=== PATIENT | male | born 1950 | race Caucasian/White ===

== ENCOUNTER → 2016-05-06 | Day surgery (SDC) | payer OTHER ==
[~2016-05-06] VITALS: Ht 175.3 cm; Wt 68.2 kg
[~2016-05-06] MED LIST: ADVIN25/60 INH; ALBU0.633 INH; ALBU1AER9 INH; AMLO-114 PO; ATOR-26 PO; BALS1CAP2 PO; BISM262C5 PO; CRFL PO; FLM4 PO; GLC500 PO; IPRA1AER2 INH; LIDOCAINE HCL 2% 2 ML VIAL (20MG/ML) ONE; MECL1TAB42 PO; MIDAZOLAM HCL 1 MG/ML 2ML VIAL ONE; NRV/5 PO; ONDANSETRON INJ 2 MG/ML 2 ML VIAL ONE; PANT40TA PO; PLV75 PO; PROPOFOL IV EMULSION 10 MG/ML 20 ML VIAL IV ONE; SENNTAB23 PO; SODIUM CHLORIDE 0.9% 500ML 500 ML IV ONE; TAMS0.4C38 PO; VNTHFA/IN INH
[2016-05-06 14:37] VITALS: Ht 175.3 cm; Wt 68.2 kg
--- NOTE | 2016-05-06 15:55 | Endo History and Physical ---
History & Physical Date of Service: May 06, 2016. Chief Complaint: REFLUX Referring Physician: DR PENA History of Present Illness 66 yo CM who presents for EGD secondary to GERD. Past Medical History Asthma, Male Genitourinary Prob., Gastrointestinal Disorder, Reflux, High Cholesterol, Hypertension, COPD, Depression Past Surgical History Hx Cardiac Surgery: No Hx Internal Defibrillator: No Hx Pacemaker: No Hx Abdominal Surgery: No Hx of Implantable Prosthesis: No Hx Post-Op Nausea and Vomiting: No Hx Cancer Surgery: No Hx Thoracic Surgery: No Hx Orthopedic: No Hx Urinary Tract Surgery: Yes (LITHOTRIPSY) Family History None Social History Smoking Status: Former Smoker Hx Substance Use: No Hx Alcohol Use: No Allergies Coded Allergies: No Known Allergies (Verified , 05/06/16) Current Medications Reported Home Medications Medications Dose Route/Sig Max Daily Dose Days Date Category Lipitor (Atorvastatin Calcium) 80 Mg Tab 80 Mg PO HS 01/17/16 Rx Stool Softener (Sennosides-Docusate Sodium) 1 Tab Tab 1 Tab PO DAILY PRN 11/04/15 Reported Pepto-Bismol Chew Tab (Bismuth Subsalicylate) Chew 1 Tab PO DIRECTED PRN 11/04/15 Reported Flomax (Tamsulosin Hcl) 0.4 Mg Cap 1 Cap PO HS 30 11/04/15 Reported Meclizine Hcl 25 Mg Tab 1 Tab PO TID PRN 10 11/04/15 Reported Amlodipine Besylate 5 Mg Tab 10 Mg PO QAM 09/05/15 Reported Metformin HCl 500 Mg Tab 500 Mg PO BID 09/05/15 Reported Combivent Respimat (Ipratropium-Albuterol) 1 Aer Aer 2 Puffs INH QID 07/26/13 Reported Albuterol Sulfate 0.63 Mg/3 Ml Neb 1 Treatment INH Q 4-6 HOURS PRN 01/16/13 Reported Proair Hfa (Albuterol) Aers 2 Puffs INH Q4-6HRS PRN 08/20/11 Reported Advair Diskus 250/50 60 Dose (Fluticasone Prop/Salmeterol) 1 Ea Aerp 1 Puff INH BID 08/20/11 Reported Vital Signs Weight (Kilograms): 68.25 Height (Feet): 5 Height (Inches): 9 Date Time Temp Pulse Resp B/P Pulse Ox O2 Delivery O2 Flow Rate FiO2 05/06/16 14:25 36.7 54 20 145/76 98 Room Air Physical Exam General Appearance: WD/WN, no apparent distress Respiratory/Chest: Auscultation: breath sounds normal Cardiovascular: Heart Auscultation: RRR Abdomen: Bowel Sounds: normal Inspection & Palpation: soft, non-distended, no tenderness, guarding & rebound Assessment and Plan Assessment: 66 yo CM who presents for EGD secondary to GERD. Plan: Proceed with EGD.
--- NOTE | 2016-05-06 16:05 | Discharge Instructions ---
Endoscopy Patient Instructions Date / Procedure(s) Performed May 06, 2016. EGD Allergy Information Coded Allergies: No Known Allergies (Verified , 05/06/16) Discharge Date / Findings May 06, 2016. Gastritis s/p biopsies Hiatal hernia Medication Instructions OK to resume all medications today as prescribed Reported Home Medications Medications Dose Route/Sig Max Daily Dose Days Date Category Lipitor (Atorvastatin Calcium) 80 Mg Tab 80 Mg PO HS 01/17/16 Rx Stool Softener (Sennosides-Docusate Sodium) 1 Tab Tab 1 Tab PO DAILY PRN 11/04/15 Reported Pepto-Bismol Chew Tab (Bismuth Subsalicylate) Chew 1 Tab PO DIRECTED PRN 11/04/15 Reported Flomax (Tamsulosin Hcl) 0.4 Mg Cap 1 Cap PO HS 30 11/04/15 Reported Meclizine Hcl 25 Mg Tab 1 Tab PO TID PRN 10 11/04/15 Reported Amlodipine Besylate 5 Mg Tab 10 Mg PO QAM 09/05/15 Reported Metformin HCl 500 Mg Tab 500 Mg PO BID 09/05/15 Reported Combivent Respimat (Ipratropium-Albuterol) 1 Aer Aer 2 Puffs INH QID 07/26/13 Reported Albuterol Sulfate 0.63 Mg/3 Ml Neb 1 Treatment INH Q 4-6 HOURS PRN 01/16/13 Reported Proair Hfa (Albuterol) Aers 2 Puffs INH Q4-6HRS PRN 08/20/11 Reported Advair Diskus 250/50 60 Dose (Fluticasone Prop/Salmeterol) 1 Ea Aerp 1 Puff INH BID 08/20/11 Reported Provider Instructions Activity Restrictions - No exercising or heavy lifting for 24 hours. - Do not drink alcohol the day of the procedure. - Do not drive a car or operate machinery until the day after the procedure. - Do not make any important decisions or sign important papers in 24 hours after the procedure. Following Day: - Return to full activity which may include returning to work/school. Diet Start your diet with liquids and light foods (jello, soup, juice, toast). Then eat your usual diet if not nauseated. Treatment For Common After Affects For mild abdominal pain, bloating, or excessive gas: - Rest - Eat lightly - Lie on right side Follow-Up Information Follow-up with DR PENA as scheduled Anesthesia Information What You Should Know You have had a procedure that required some medicine to reduce anxiety and discomfort. This treatment is called moderate sedation. After receiving the treatment, you may be sleepy, but you will be able to breathe on your own. The effects of the treatment may last for several hours. Follow these instructions along with Activity/Diet recommendations noted above: * Do NOT do anything where dizziness or clumsiness would be dangerous. * Rest quietly at home today, then you can be up and about tomorrow. * Have a responsible person stay with you the rest of today. * You may have had an I.V. today. If so, you may take the dressing off later today. Recommendations Call your doctor if: * Trouble breathing * Continuous vomiting for more than 24 hours * Temperature above 101 degrees * Severe abdominal pain or bloating * Pain not relieved by pain medicine ordered * There is increased drainage or redness from any incision * A large amount of rectal bleeding greater than 2-3 tablespoons. (If you had a polyp/s removed or have hemorrhoids, a small amount of blood - from the rectum is to be expected.) * You have any unanswered questions or concerns. IN THE EVENT OF A SERIOUS EMERGENCY, GO TO THE NEAREST EMERGENCY ROOM Your discharge instructions were prepared by provider Enrique Meeks. Patient Instructions Signature Page Khadar Bailey Patient (or Guardian) Signature/Date: I have read and understand the instructions given to me by my caregivers. Caregiver/RN/Doctor Signature/Date: The above-named patient and/or guardian has received patient instructions on this date. + Original Patient Signature Page (only) stays with chart. Please make copy for patient.
--- NOTE | 2016-05-06 16:10 | GI REPORT ---
Procedure Date: 05/06/2016 3:29 PM Procedure: Upper GI endoscopy Indications: Suspected gastro-esophageal reflux disease Medicines: Monitored Anesthesia Care Complications: No immediate complications. Estimated Blood Loss: Estimated blood loss: none. Procedure: Pre-Anesthesia Assessment: - Prior to the procedure, a History and Physical was performed, and patient medications and allergies were reviewed. The patient's tolerance of previous anesthesia was also reviewed. The risks and benefits of the procedure and the sedation options and risks were discussed with the patient. All questions were answered, and informed consent was obtained. Prior Anticoagulants: The patient has taken no previous anticoagulant or antiplatelet agents. ASA Grade Assessment: III - A patient with severe systemic disease. After reviewing the risks and benefits, the patient was deemed in satisfactory condition to undergo the procedure. After obtaining informed consent, the endoscope was passed under direct vision. Throughout the procedure, the patient's blood pressure, pulse, and oxygen saturations were monitored continuously. The On-site loaner was introduced through the mouth, and advanced to the second part of duodenum. The upper GI endoscopy was accomplished without difficulty. The patient tolerated the procedure well. Findings: The esophagus was normal. A small hiatus hernia was present. Localized mild inflammation characterized by erythema was found in the gastric antrum. Biopsies were taken with a cold forceps for histology. The examined duodenum was normal. Impression: - Normal esophagus. - Small hiatus hernia. - Gastritis. Biopsied. - Normal examined duodenum. Recommendation: - Resume previous diet. - Use Prilosec (omeprazole) 20 mg PO daily. - Await pathology results. - Return to GI office as previously scheduled. Enrique Meeks, DO 05/06/2016 4:09:01 PM This report has been signed electronically. Note Initiated On: 05/06/2016 3:29 PM
[2016-05-06 16:39] VITALS: BP 135/69; PULSE 54; O2SAT 93
--- NOTE | 2016-05-06 17:09 | Anesthesiology Progress Note ---
Anesthesia Post Op Note Date & Time May 06, 2016 at 17:08 Vital Signs Pain Intensity: 0 Vital Signs Past 12 Hours Date Time Temp Pulse Resp B/P Pulse Ox O2 Delivery O2 Flow Rate FiO2 05/06/16 16:39 54 20 135/69 93 Room Air 05/06/16 16:24 54 18 126/60 94 Room Air 05/06/16 16:09 52 16 110/59 94 Room Air 05/06/16 14:25 36.7 54 20 145/76 98 Room Air Notes Mental Status: alert / awake / arousable, participated in evaluation Pt Amnestic to Procedure: Yes Nausea / Vomiting: adequately controlled Pain: adequately controlled Airway Patency, RR, SpO2: stable & adequate BP & HR: stable & adequate Hydration State: stable & adequate Anesthetic Complications: no major complications apparent
== END | disposition home or self-care (01) ==
LOC: C.GI 14:04
PROVIDERS: ATTEND Internal Medicine
DX: K29.70 Gastritis, unspecified, without bleeding (principal); K21.9 Gastro-esophageal reflux disease without esophagitis; K44.9 Diaphragmatic hernia without obstruction or gangrene; J45.909 Unspecified asthma, uncomplicated; E78.00 Pure hypercholesterolemia, unspecified; I10 Essential (primary) hypertension; J44.9 Chronic obstructive pulmonary disease, unspecified; F32.9 Major depressive disorder, single episode, unspecified; Z98.890 Other specified postprocedural states; Z87.891 Personal history of nicotine dependence

== ENCOUNTER → 2016-05-13 | Outpatient (CLI) | payer OTHER ==
[~2016-05-13] MED LIST changes: -LIDOCAINE HCL 2% 2 ML VIAL (20MG/ML) ONE; -MIDAZOLAM HCL 1 MG/ML 2ML VIAL ONE; -ONDANSETRON INJ 2 MG/ML 2 ML VIAL ONE; -PROPOFOL IV EMULSION 10 MG/ML 20 ML VIAL IV ONE; -SODIUM CHLORIDE 0.9% 500ML 500 ML IV ONE
--- NOTE | 2016-05-13 11:33 | DIAGNOSTIC IMAGING REPORT ---
(BARIUM SWALLOW) ESOPHAGUS CLINICAL HISTORY: Dysphagia with solids and pills. Coughing. COMPARISON STUDY: None. FLUOROSCOPY TIME: Total fluoroscopy time was 0.8 minutes.. FINDINGS: 12 images submitted. The patient swallowed barium contrast. There is a small amount of silent aspiration during the examination. Therefore, examination was terminated prematurely. The visualized portions of the esophagus appear to be normal in course and caliber. IMPRESSION: Silent aspiration occurred during the examination which resulted in premature termination of the study. Recommend video swallow for further evaluation. Electronically signed by: Pal Richter M.D. 05/13/2016 11:31 AM Dictated Date/Time: 05/13/2016 11:29 AM
== END | disposition home or self-care (01) ==
LOC: C.RAD 10:47
PROVIDERS: ATTEND Internal Medicine
DX: R13.10 Dysphagia, unspecified (principal); R05 Cough

== ENCOUNTER → 2016-05-21 | Outpatient (CLI) | payer OTHER ==
--- NOTE | 2016-05-21 14:04 | DIAGNOSTIC IMAGING REPORT ---
VIDEO SWALLOW STUDY CLINICAL HISTORY: Aspiration. COMPARISON STUDY: Barium esophagram dated 05/13/2016. Fluoroscopy time: 3.6 minutes. FINDINGS: Fluoroscopic guidance was provided to the Department of Speech Pathology in performing a video swallow study. The patient consumed barium-impregnated cracker with paste, pudding, honey thick liquid, nectar thick liquid, as well as thin barium. No penetration or aspiration was seen with the cracker with paste. There was pharyngeal penetration without aspiration seen with pudding texture. Silent aspiration was observed with honey thick liquids, nectar thick liquids, and thin barium. IMPRESSION: Silent aspiration was seen with several textures as detailed above. See dedicated speech pathology report for detailed findings and recommendations. Dictated: 05/21/2016 1:00 PM Transcribed: 05/21/2016 2:03 PM [email or web address] Electronically signed by: Sammy Leal M.D. 05/21/2016 2:09 PM Dictated Date/Time: 05/21/2016 1:00 PM
--- NOTE | 2016-05-21 15:05 | SWALLOWING EVALUATION ---
HISTORY: This 66 year-old man was referred for a VFSS at [facility] in order to rule out aspiration. The patient recently participated in a Barium Swallow study on 05/13/16 (please refer to full report for details) that identified silent aspiration. He also had an EGD completed on 05/06/16 for suspected reflux. The esophagus was found to be normal, but there was a small hiatal hernia. The patient reports he often has a sore throat, and that the right side of his throat feels swollen. He denies any significant swallowing difficulties. The patient has a PMH significant for COPD, hypertension, AAA, falls, UTI, and vertigo. Both he and his family deny any history of pneumonia. Currently the patient's diet level is described as mechanical soft. PROCEDURE: The patient was seen in the Radiology Department of [facility] for the VFSS. Cursory examination of the oral cavity revealed an upper denture of adequate fit. No lower dentition noted. Movement of the articulators was wnl. He did tend to have episodes of mumbling and low volume while speaking. The patient was also hard of hearing and had some difficulty with following directions due to this. The patient was seated upright in a wheelchair and was viewed in both the Anterior-Posterior (A-P) and Lateral planes. Volitional phonation exercises completed in the A-P plane revealed bilateral vocal fold movement and vocal intensity to be mildly low. In the lateral plane, the patient was given the following boluses: 1 tsp. thin liquid barium x 2, single swallow thin liquid barium self-presented and clinician-presented from a cup x3 (one with a chin tuck), single swallow of thin liquid barium self-presented from a straw, 1 tsp. nectar-thick liquid barium, single swallow nectar-thick liquid barium self-presented and clinician-presented from a cup, 1 teaspoon thin-honey barium, 1 tsp. barium pudding, and 1 club cracker with barium paste. The patient was then repositioned into the A-P plane and given the following bolus: 1 tsp. barium pudding. RESULTS: Oral Stage: Lip closure was wnl. The patient was able to orally contain a liquid bolus upon command without lateral or posterior loss. Mastication was slow as was lingual motion for bolus transport. There was a collection of retention in the lateral sulci and along the tongue after the swallow. The initiation of the pharyngeal swallow was delayed and occurred when the bolus head reached the pyriforms. Pharyngeal Stage: Soft palate elevation was complete. Laryngeal elevation revealed partial superior movement of the thyroid cartilage and partial approximation of the arytenoids to the epiglottic base. Anterior hyoid excursion was partially reduced. Epiglottic deflection was incomplete as it only inverted partially to the horizontal position. Laryngeal vestibular closure was incomplete, with a narrow column of contrast and at times air being located in the vestibule at the height of the swallow. The pharyngeal stripping wave was present yet diminished. Pharyngeal contraction was only assessed with using pudding, and was found to be complete. The opening to the pharyngoesophageal segment was partially reduced with distention and duration, and partial bolus flow obstruction. Tongue base retraction was incomplete with a narrow column of contrast being noted between the tongue base and pharyngeal wall during the swallow. There was retention located in the valleculae and pyriforms after the swallow. There was also a coating of residue along the laryngeal aspect of the epiglottis. This patient presented with laryngeal penetration and SILENT aspiration (at times scant amounts) of all liquids administered, to include thin, nectar and honey consistencies. A chin tuck was utilized with thin liquids and resulted in worsening aspiration that was also SILENT. Verbal cues to produce a throat clear and/or cough did not appear to fully redirect the aspirated liquids. This aspiration is due to delayed swallow reflex, incomplete laryngeal elevation/excursion, and reduced epiglottic deflection. Pudding textures resulted in laryngeal penetration without aspiration, and the cracker was also not aspirated. There were increased residuals in the valleculae and pyriforms after the swallow that the patient was not able to clear with a second swallow. Residuals along the laryngeal aspect of the epiglottis would trickle toward the open airway and when a swallow was elicited, scant silent aspiration would occur. Esophageal Stage: There was esophageal retention located in the mid esophagus with the pudding consistency. SUMMARY/RECOMMENDATIONS: This patient presents with moderate to severe oral-pharyngeal dysphagia. The patient also presents with signs of esophageal dysfunction. The patient has not had any recent pneumonia and is apparently tolerating the aspiration, however is a HIGH risk for developing repeated aspiration pneumonia. Therefore, the following is recommended: 1. Mechanical soft diet and thin liquids. 2. Aspiration precautions, NO straws. Fully upright for meals. Stringent oral care to include brushing all surfaces of the mouth (tongue, palate, cheek, and dentures). 3. Safe swallow strategies: Small bites, small sips. Consider crushing medications and place in a carrier such as applesauce or pudding. 4. Follow up with referring physician and PCP OSIEL regarding results and recommendations of this study. The patient would also benefit from speech therapy services for further education and carryover of diet and safe swallow strategies. In addition, the patient would benefit from pharyngeal strengthening exercises to assist with improved swallow function. A summary of the results and recommendations was discussed with the patient and his niece (with the patient's permission) with verbal understanding. Thickened liquids were not recommended as the patient aspirates them as well, and he would be more at risk of developing aspiration pneumonia from aspirated thickener as opposed to thin liquids. Liquids of pudding thick consistency can also be considered, however again the patient is currently tolerating what he is aspirating. Liquid modification to pudding thick would significantly increase the patient's risk of dehydration, and compliance with this may be limited. The patient reports he typically only drinks coffee, and lemon-red cliff soda. Also reviewed the importance of stringent oral care. Family indicates the patient is extremely active and it is likely this has kept him from developing pneumonia at this point. The referring physician's office was also contacted (Dr. Meeks) and spoke with Libby LOVE regarding results understanding was verbalized. Thank you for referral of this patient. Please contact me at if any additional information is needed.
== END | disposition home or self-care (01) ==
LOC: C.RAD 11:06
PROVIDERS: ATTEND Internal Medicine
DX: R13.10 Dysphagia, unspecified (principal)

== ENCOUNTER → 2016-05-24 | Outpatient (CLI) | payer OTHER ==
--- NOTE | 2016-05-24 12:33 | DIAGNOSTIC IMAGING REPORT ---
PA CHEST RADIOGRAPH AND UPRIGHT AND SUPINE AP RADIOGRAPHS OF THE ABDOMEN CLINICAL HISTORY: Abdominal pain and tenderness. COMPARISON STUDY: Abdominal series and chest radiograph September 13, [address] March 23, 2016. FINDINGS: Emphysema is noted. There are multiple healed left rib fractures. A nipple shadow projects over the right lower lung. There is no consolidation to suggest pneumonia. Cardiac size is normal. Mediastinal contours are normal. The appearance of the chest is unchanged. There is oral contrast within portions of the colon from recent modified barium swallow. A bifurcated aortoiliac stent graft and cholecystectomy clips are noted. Bowel gas pattern is normal. There is no free air. Avascular necrosis of the right femoral head is noted. IMPRESSION: 1. No free air or evidence of bowel obstruction. 2. No acute cardiopulmonary findings. 3. Emphysema. 4. Avascular necrosis of the right femoral head. Electronically signed by: Julio C Escobar M.D. 05/24/2016 12:32 PM Dictated Date/Time: 05/24/2016 12:29 PM
== END | disposition home or self-care (01) ==
LOC: C.RAD 11:22
PROVIDERS: ATTEND Family Medicine
DX: R10.9 Unspecified abdominal pain (principal); J43.9 Emphysema, unspecified

== ENCOUNTER → 2016-06-28 | Outpatient (CLI) | payer OTHER ==
[2016-06-28 10:08] LABS: ESTIMATED AVERAGE GLUCOSE 126 mg/dl; HA1C FLAG Normal (Normal)
[2016-06-28 10:42] LABS: ALT/SGPT 9 U/L (12-78); BLOOD UREA NITROGEN 14 mg/dl (7-18); BUN/CREATININE RATIO 13.8 (10-20); CALCIUM 9.1 mg/dl (8.5-10.1); CARBON DIOXIDE 29 mmol/L (21-32); CHLORIDE 102 mmol/L (98-107); GLUCOSE 101 mg/dl (70-99); POTASSIUM 4.2 mmol/L (3.5-5.1); SODIUM 141 mmol/L (136-145)
[2016-06-28 10:44] LABS: CHOLESTEROL 208 mg/dl (0-200); CHOLESTEROL/HDL RATIO 4.3; HDL CHOLESTEROL 48 mg/dl; LDL CHOLESTEROL CALCULATED 132 mg/dl; TRIGLYCERIDES 139 mg/dl (0-150); VERY LOW DENSITY LIPOPROT CALC 28 mg/dl
== END | disposition home or self-care (01) ==
LOC: C.LAB1850 08:50
PROVIDERS: ATTEND Family Medicine
DX: E78.5 Hyperlipidemia, unspecified (principal); R73.9 Hyperglycemia, unspecified

== ENCOUNTER 2016-07-21 11:04 | Inpatient (IN) | payer OTHER ==
[~2016-07-21] VITALS: Ht 175.3 cm; Wt 68.1 kg
[~2016-07-21 11:04] MED LIST changes: -AMLO-114 PO; -BALS1CAP2 PO; -CRFL PO; -FLM4 PO; -PANT40TA PO; -PLV75 PO; -VNTHFA/IN INH
[2016-07-21] MEDS ORDERED: ONDANSETRON INJ 2 MG/ML 2 ML VIAL IV STA ×2 (11:29→12:53)
[2016-07-21] MEDS ORDERED: SODIUM CHLORIDE 0.9% 500ML 500 ML IV STA (11:29)
[2016-07-21] MEDS ORDERED: SODIUM CHLORIDE 0.9% 1000ML 1,000 ML IV STA (11:29)
--- NOTE | 2016-07-21 11:35 | EMERGENCY ROOM VISIT NOTE ---
History Report prepared by Razia: Tristan Martinez Under the Supervision of: Dr. Lolly Duarte M.D. First contact with patient: 11:26 Chief Complaint: REFERRED BY DOCTOR Stated Complaint: SENT BY FAMILY DOCTOR-Ainsley,D, DEHYDRATED History of Present Illness The patient is a 66 year old male who presents to the Emergency Room with complaints of persistent vomiting for the past week. The patient also complains of nausea, diarrhea, and headache. The patient presented to his PCP earlier this morning that recommended he present to the ED for further evaluation since he was concerned for dehydration. The patient also complains of a right-sided abdominal pain that radiates to his chest. This discomfort starter after his abdominal aneurysm surgery 5 months ago in January. Per patient's family, they think the patient has been eating and drinking normally. Source of History: patient Onset: the past week Position: abdomen Timing: other (persistent) Associated Symptoms: + abdominal pain, + diarrhea, + headache, + nausea Review of Systems See HPI for pertinent positives & negatives. A total of 10 systems reviewed and were otherwise negative. Past Medical & Surgical Medical Problems: (1) Chronic obstructive lung disease (2) Fall (3) History of - hypertension (4) Hypercholesteremia Family History Hypertension Social History Smoking Status: Former Smoker Alcohol Use: none Drug Use: none Marital Status: Housing Status: lives with family Occupation Status: employed Current/Historical Medications Scheduled Albuterol Hfa (Ventolin Hfa), 2-4 PUFFS INH Q6H Amlodipine (Norvasc), 10 MG PO DAILY Atorvastatin (Lipitor), 80 MG PO HS Balsalazide Disodium (Colazal), 2 CAP PO TID Clopidogrel Bisulfate (Clopidogrel), 1 TAB PO DAILY Fluticasone Prop/Salmeterol (Advair Diskus 250/50 60 Dose), 1 PUFF INH BID Ipratropium-Albuterol (Combivent Respimat), 2 PUFFS INH QID Metformin HCl (Metformin HCl), 500 MG PO BID Pantoprazole (Protonix), 40 MG PO BID Sucralfate (Carafate), 10 ML PO QID Tamsulosin HCl (Tamsulosin HCl), 0.4 MG PO DAILY Scheduled PRN Albuterol Sulfate (Albuterol Sulfate), 1 TREATMENT INH Q 4-6 HOURS PRN for COPD Meclizine Hcl (Meclizine Hcl), 1 TAB PO TID PRN for Dizziness or Vertigo Sennosides-Docusate Sodium (Stool Softener), 1 TAB PO DAILY PRN for Constipation Allergies Coded Allergies: Ciprofloxacin (Unverified Allergy, Severe, hives, 07/21/16) Physical Exam Vital Signs Date Time Temp Pulse Resp B/P Pulse Ox O2 Delivery O2 Flow Rate FiO2 07/21/16 14:37 56 126/65 99 Nasal Cannula 2.0 07/21/16 14:07 97 Nasal Cannula 2.0 07/21/16 13:59 68 28 151/68 87 Room Air 07/21/16 13:38 62 24 137/72 97 Room Air 07/21/16 13:31 62 07/21/16 12:54 68 24 150/83 96 Room Air 07/21/16 12:35 68 21 162/75 96 Room Air 07/21/16 12:17 62 24 152/79 100 Room Air 07/21/16 11:45 56 19 136/65 96 Room Air 07/21/16 11:27 56 07/21/16 11:10 36.7 57 17 147/78 98 Room Air Physical Exam Vital signs reviewed. General: Elderly chronically-appearing male, in no distress. HEENT: No scleral icterus, PERRLA, neck supple. Atraumatic. Cardiovascular: Regular rate and rhythm, no extra sounds. Pulmonary: Clear to auscultation bilaterally, normal work of breathing. Abdomen: Soft, diffuse abdominal tenderness greatest in epigastric area, nondistended, positive bowel sounds. Musculoskeletal: Atraumatic, no peripheral edema. Neurologic: Patient awake alert and oriented x 3, full strength in all 4 extremities. Cranial nerves 2 through 12 grossly intact. Skin: Warm, dry, no rash Medical Decision & Procedures ER Provider Diagnostic Interpretation: CT results as stated below per my review and radiologist interpretation: CT SCAN OF THE BRAIN WITHOUT IV CONTRAST CLINICAL HISTORY: Headache. COMPARISON STUDY: CT of the brain dated 01/16/2016. MRI of the brain dated 01/16/2016. TECHNIQUE: Unenhanced axial CT scan of the brain is performed from the vertex to the skull base. The patient was scanned twice. FINDINGS: Brain parenchyma: There are age-related involutional changes noting moderate patchy subcortical and periventricular microangiopathic change. A chronic lacunar infarct is noted in the right caudate head. There is no hemorrhage, mass effect, or evidence of acute territorial ischemia by CT criteria. Gonzáles-white matter is preserved. No extra-axial fluid collection is seen. Ventricles, sulci, cisterns: Prominent secondary to involutional change. Intracranial vasculature: There is mild atherosclerotic calcification of the cavernous carotid arteries. Calvarium: Unremarkable. Sinuses and mastoids: The visualized paranasal sinuses are clear. The mastoid air cells are well pneumatized. Orbits: The bony orbits are grossly intact. IMPRESSION: There is no hemorrhage, mass effect, or evidence of acute territorial ischemia by CT criteria. Electronically signed by: Sammy Leal M.D. 07/21/2016 12:38 PM Dictated Date/Time: 07/21/2016 12:35 PM ] ABDOMEN AND PELVIS CT WITH IV CONTRAST CT DOSE: 1141.71 mGy.cm HISTORY: Vomiting. Diarrhea. TECHNIQUE: Multiaxial CT images of the abdomen and pelvis were performed following the use of intravenous contrast. COMPARISON STUDY: None. FINDINGS: There is a 5 mm subpleural nodule within the right lower lobe on image 10 of 501. Mild bibasilar interstitial thickening which is likely chronic. No pneumoperitoneum. No pneumatosis. There are 2 hypodense lesions within the liver, unchanged. The largest in the left hepatic lobe measures 3.1 cm. These likely represent cysts. Cholecystectomy. Mild central intrahepatic bile duct dilatation, unchanged. This is likely due to the patient's postcholecystectomy state. The pancreas, spleen, adrenal glands are unremarkable. Bilateral nephrolithiasis. No hydronephrosis. Multiple bilateral renal hypodense lesions are again noted. These likely represent cysts. There is a 9 mm hypodensity within the lower pole the right kidney which may demonstrate slight enhancement. This is incompletely characterized on this single contrast study. The bladder is unremarkable. Prior left inguinal hernia repair. No bowel wall thickening or obstruction. Normal appendix. The patient is status post aortobiiliac stent graft repair of abdominal aortic aneurysm. The aneurysm sac has decreased in size. The sac currently measures 3.8 x 3.6 cm. IMPRESSION: 1. No bowel wall thickening or obstruction. 2. Normal appendix. 3. Hepatic and renal cysts are again noted. 4. Interval aortobiiliac stent graft repair of abdominal aortic aneurysm. The aneurysm sac has decreased in size. 5. A 9 mm hypodense lesion within the lower pole the right kidney which does not clearly represent a simple cyst. Recommend dedicated follow-up nonemergent renal CT to exclude a renal mass. 6. A 5 mm subpleural indeterminate pulmonary nodule within the right lower lobe. Please refer to the chart below for recommended follow-up. 7. Bilateral nephrolithiasis. No hydronephrosis. Please refer to below summary of Fleischner criteria recommendations for follow-up of incidental CT nodules (Mook Blum, Guidelines for management of small pulmonary nodules detected on CT scans: A statement from the Fleischner Society, Radiology 237: [phone].) Low Risk Patient: Minimal or no smoking or other known risk factors for malignancy <=4 mm: No follow-up needed. >4-6 mm: Initial follow-up CT at 12 months; if unchanged, no further follow-up. >6-8 mm: Initial follow-up CT at 6-12 months then at 18-24 months if no change. >8 mm: Follow-up CT at \R\3, 9, 24 months, or PET and/or biopsy. High Risk Patient: History of smoking or other known risk factors <=4 mm: Follow-up at 12 months; if unchanged, no further follow-up. >4-6 mm: Initial follow-up CT at 6-12 months then at 18-24 months if no change. >6-8 mm: Initial follow-up CT at 3-6 months then at 9-12 and 24 months if no change. >8 mm: Same as low risk patient. Note: Nodule size measured as average of length and width. Ground glass or partly solid nodules may require longer follow-up to exclude indolent adenocarcinoma. Electronically signed by: Pal Richter M.D. 07/21/2016 12:51 PM Dictated Date/Time: 07/21/2016 12:36 PM Laboratory Results Test 07/21/16 11:20 07/21/16 11:35 Immature Granulocyte % (Auto) 0.1 % White Blood Count 7.77 K/uL (4.8-10.8) Red Blood Count 4.91 M/uL (4.7-6.1) Hemoglobin 13.6 g/dL (14.0-18.0) Hematocrit 40.7 % (42-52) Mean Corpuscular Volume 82.9 fL (80-100) Mean Corpuscular Hemoglobin 27.7 pg (25-34) Mean Corpuscular Hemoglobin Concent 33.4 g/dl (32-36) Platelet Count 279 K/uL (130-400) Mean Platelet Volume 9.5 fL (7.4-10.4) Neutrophils (%) (Auto) 65.8 % Lymphocytes (%) (Auto) 25.7 % Monocytes (%) (Auto) 6.4 % Eosinophils (%) (Auto) 1.7 % Basophils (%) (Auto) 0.3 % Neutrophils # (Auto) 5.11 K/uL (1.4-6.5) Lymphocytes # (Auto) 2.00 K/uL (1.2-3.4) Monocytes # (Auto) 0.50 K/uL (0.11-0.59) Eosinophils # (Auto) 0.13 K/uL (0-0.5) Basophils # (Auto) 0.02 K/uL (0-0.2) Immature Granulocyte # (Auto) 0.01 K/uL (0.00-0.02) Prothrombin Time 11.5 SECONDS (9.0-12.0) Prothromb Time International Ratio 1.1 (0.9-1.1) Activated Partial Thromboplast Time 27.1 SECONDS (21.0-31.0) Partial Thromboplastin Ratio 1.0 Magnesium Level 1.9 mg/dl (1.8-2.4) Total Bilirubin 0.4 mg/dl (0.2-1) Direct Bilirubin < 0.1 mg/dl (0-0.2) Aspartate Amino Transf (AST/SGOT) 10 U/L (15-37) Alanine Aminotransferase (ALT/SGPT) 8 U/L (12-78) Alkaline Phosphatase 111 U/L (45-117) Total Creatine Kinase 533 U/L (39-308) Creatine Kinase MB < 0.5 ng/ml (0.5-3.6) Creatine Kinase MB Ratio (0-3.0) Total Protein 7.7 gm/dl (6.4-8.2) Albumin 3.3 gm/dl (3.4-5.0) Lipase 94 U/L (73-393) Hepatitis C Antibody Screen NEG (NEG) Bedside Troponin I 0.000 ng/ml (0-0.045) Laboratory results per my review. Medications Administered Medications (Trade) Dose Ordered Sig/Ariana Route Start Time Stop Time Status Last Admin Dose Admin Sodium Chloride 500 ml @ 999 mls/hr Q31M STAT IV 07/21/16 11:29 07/21/16 11:59 DC 07/21/16 11:29 999 MLS/HR Sodium Chloride (Nss 1000ml) 1,000 ml @ 200 mls/hr Q5H STAT IV 07/21/16 11:29 07/21/16 16:29 DC 07/21/16 11:29 200 MLS/HR Ondansetron HCl (Zofran Inj) 4 mg NOW STAT IV 07/21/16 11:29 07/21/16 11:31 DC 07/21/16 11:39 4 MG Ondansetron HCl 4 mg 4 mg NOW STAT IV 07/21/16 12:53 07/21/16 12:54 DC 07/21/16 12:58 4 MG Promethazine HCl/ Sodium Chloride (Phenergan Inj/ Nss 50ml) 50.5 ml @ 204 mls/hr NOW STAT IV 07/21/16 13:20 07/21/16 13:34 DC 07/21/16 13:39 204 MLS/HR ECG Indication: vomiting Rate (beats per minute): 57 Rhythm: sinus bradycardia Findings: no acute ischemic change, no ectopy ED Course 1125: Past medical records reviewed. The patient was evaluated in room C5. A complete history and physical examination was performed. 1129: Ordered Zofran Inj 4 mg IV, NSS 1000 ml @ 200 mls/hr IV, NSS 500 ml @ 999 mls/hr IV. 1253: Ordered Zofran Inj 4 mg IV. 1320: Ordered Promethazine HCl 12.5 mg/ NSS 50.5 ml @ 204 mls/hr IV. 1411: At this time, I discussed the patient's case with Dr. Bradshaw - Hospitalist [facility] and he agreed to accept the patient for further evaluation. Medical Decision Differential Diagnoses: Ruptured triple aneurysm, leaking aortic graft, intracranial hemorrhage, intracranial mass, viral illness, hiatal hernia, bowel obstruction, or GERD. This patient was evaluated and appeared to be in no significant distress. IV access was obtained and laboratory work was drawn. The patient was placed on the cardiac catheterization technician and found to be in a sinus rhythm. Patient received 2 doses of IV Zofran with continued vomiting. CT scan of the head is negative for acute intracranial abnormality. CT scan of the abdomen and pelvis reveals the aortic graft in good position without evidence of leak. Laboratory work is fairly unrevealing. The patient continued to vomit and was given a dose of IV Phenergan. The etiology of the pain is unclear. The patient will be evaluated by the hospitalist service for admission and further management. Consults Time Called: 1406 Consulting Physician: Dr. Bradshaw - Hospitalist [facility] [place] Returned Call: [phone] At this time, I discussed the patient's case with Dr. Bradshaw and he agreed to accept the patient for further evaluation. Impression Primary Impression: Intractable vomiting Additional Impressions: Abdominal pain Headache Scribe Attestation The scribe's documentation has been prepared under my direction and personally reviewed by me in its entirety. I confirm that the note above accurately reflects all work, treatment, procedures, and medical decision making performed by me. Departure Information Dispostion Being Evaluated By Hospitalist Prescriptions Sucralfate (CARAFATE) 1 Gm/10 Ml Jennifer 10 ML PO QID for 7 Days, #280 ML Prov: Bryan Palacios, D.OAntelmo 07/22/16 Referrals No Doctor, Assigned (PCP) Problem Qualifiers Primary Impression: Intractable vomiting Vomiting type: unspecified Nausea presence: with nausea Qualified Codes: R11.2 - Nausea with vomiting, unspecified Additional Impressions: Abdominal pain Abdominal location: generalized Qualified Codes: R10.84 - Generalized abdominal pain Headache Headache type: tension-type Headache chronicity pattern: acute headache Intractability: intractable Qualified Codes: G44.201 - Tension-type headache , unspecified, intractable
[2016-07-21 11:40] LABS: BASO % 0.3 %; BASO ABS # 0.02 K/uL (0-0.2); COMPLETE YES; EOS % 1.7 %; HEMATOCRIT 40.7 % (42-52); IG% 0.1 %; LYMPH % 25.7 %; MEAN CELL VOLUME 82.9 fL (80-100); MEAN CORPUSCULAR HEMOGLOBIN 27.7 pg (25-34); MEAN CORPUSCULAR HGB CONC 33.4 g/dl (32-36); MEAN PLATELET VOLUME 9.5 fL (7.4-10.4); MONO % 6.4 %; NEUT % 65.8 %; PLATELET COUNT 279 K/uL (130-400); RED BLOOD COUNT 4.91 M/uL (4.7-6.1); WHITE BLOOD COUNT 7.77 K/uL (4.8-10.8)
[2016-07-21] MEDS ORDERED: OPTIRAY 320 IV PRN (11:45)
[2016-07-21 11:53] LABS: INR 1.1 (0.9-1.1); PROTHROMBIN TIME (PATIENT) 11.5 SECONDS (9.0-12.0)
[2016-07-21 12:02] LABS: ALT/SGPT 8 U/L (12-78); BLOOD UREA NITROGEN 14 mg/dl (7-18); BUN/CREATININE RATIO 14.2 (10-20); CALCIUM 8.8 mg/dl (8.5-10.1); CARBON DIOXIDE 30 mmol/L (21-32); CHLORIDE 103 mmol/L (98-107); CREATININE 0.95 mg/dl (0.60-1.40); GLUCOSE 92 mg/dl (70-99); MAGNESIUM 1.9 mg/dl (1.8-2.4); POTASSIUM 3.8 mmol/L (3.5-5.1); SODIUM 139 mmol/L (136-145)
[2016-07-21 12:10] LABS: ALKALINE PHOSPHATASE 111 U/L (45-117); AST/SGOT 10 U/L (15-37)
--- NOTE | 2016-07-21 12:39 | DIAGNOSTIC IMAGING REPORT ---
CT SCAN OF THE BRAIN WITHOUT IV CONTRAST CLINICAL HISTORY: Headache. COMPARISON STUDY: CT of the brain dated 01/16/2016. MRI of the brain dated 01/16/2016. TECHNIQUE: Unenhanced axial CT scan of the brain is performed from the vertex to the skull base. The patient was scanned twice. FINDINGS: Brain parenchyma: There are age-related involutional changes noting moderate patchy subcortical and periventricular microangiopathic change. A chronic lacunar infarct is noted in the right caudate head. There is no hemorrhage, mass effect, or evidence of acute territorial ischemia by CT criteria. Gonzáles-white matter is preserved. No extra-axial fluid collection is seen. Ventricles, sulci, cisterns: Prominent secondary to involutional change. Intracranial vasculature: There is mild atherosclerotic calcification of the cavernous carotid arteries. Calvarium: Unremarkable. Sinuses and mastoids: The visualized paranasal sinuses are clear. The mastoid air cells are well pneumatized. Orbits: The bony orbits are grossly intact. IMPRESSION: There is no hemorrhage, mass effect, or evidence of acute territorial ischemia by CT criteria. Electronically signed by: Sammy Leal M.D. 07/21/2016 12:38 PM Dictated Date/Time: 07/21/2016 12:35 PM
--- NOTE | 2016-07-21 12:52 | DIAGNOSTIC IMAGING REPORT ---
ABDOMEN AND PELVIS CT WITH IV CONTRAST CT DOSE: 1141.71 mGy.cm HISTORY: Vomiting. Diarrhea. TECHNIQUE: Multiaxial CT images of the abdomen and pelvis were performed following the use of intravenous contrast. COMPARISON STUDY: None. FINDINGS: There is a 5 mm subpleural nodule within the right lower lobe on image 10 of 501. Mild bibasilar interstitial thickening which is likely chronic. No pneumoperitoneum. No pneumatosis. There are 2 hypodense lesions within the liver, unchanged. The largest in the left hepatic lobe measures 3.1 cm. These likely represent cysts. Cholecystectomy. Mild central intrahepatic bile duct dilatation, unchanged. This is likely due to the patient's postcholecystectomy state. The pancreas, spleen, adrenal glands are unremarkable. Bilateral nephrolithiasis. No hydronephrosis. Multiple bilateral renal hypodense lesions are again noted. These likely represent cysts. There is a 9 mm hypodensity within the lower pole the right kidney which may demonstrate slight enhancement. This is incompletely characterized on this single contrast study. The bladder is unremarkable. Prior left inguinal hernia repair. No bowel wall thickening or obstruction. Normal appendix. The patient is status post aortobiiliac stent graft repair of abdominal aortic aneurysm. The aneurysm sac has decreased in size. The sac currently measures 3.8 x 3.6 cm. IMPRESSION: 1. No bowel wall thickening or obstruction. 2. Normal appendix. 3. Hepatic and renal cysts are again noted. 4. Interval aortobiiliac stent graft repair of abdominal aortic aneurysm. The aneurysm sac has decreased in size. 5. A 9 mm hypodense lesion within the lower pole the right kidney which does not clearly represent a simple cyst. Recommend dedicated follow-up nonemergent renal CT to exclude a renal mass. 6. A 5 mm subpleural indeterminate pulmonary nodule within the right lower lobe. Please refer to the chart below for recommended follow-up. 7. Bilateral nephrolithiasis. No hydronephrosis. Please refer to below summary of Fleischner criteria recommendations for follow-up of incidental CT nodules (Mook Blum, Guidelines for management of small pulmonary nodules detected on CT scans: A statement from the Fleischner Society, Radiology 237: [phone].) Low Risk Patient: Minimal or no smoking or other known risk factors for malignancy <=4 mm: No follow-up needed. >4-6 mm: Initial follow-up CT at 12 months; if unchanged, no further follow-up. >6-8 mm: Initial follow-up CT at 6-12 months then at 18-24 months if no change. >8 mm: Follow-up CT at \R\3, 9, 24 months, or PET and/or biopsy. High Risk Patient: History of smoking or other known risk factors <=4 mm: Follow-up at 12 months; if unchanged, no further follow-up. >4-6 mm: Initial follow-up CT at 6-12 months then at 18-24 months if no change. >6-8 mm: Initial follow-up CT at 3-6 months then at 9-12 and 24 months if no change. >8 mm: Same as low risk patient. Note: Nodule size measured as average of length and width. Ground glass or partly solid nodules may require longer follow-up to exclude indolent adenocarcinoma. Electronically signed by: Pal Richter M.D. 07/21/2016 12:51 PM Dictated Date/Time: 07/21/2016 12:36 PM
[2016-07-21] MEDS ORDERED: BALS1CAP2 PO (13:13)
[2016-07-21] MEDS ORDERED: VNTHFA/IN INH (13:13)
[2016-07-21] MEDS ORDERED: PANT40TA PO (13:13)
[2016-07-21] MEDS ORDERED: PROMETHAZINE HCL INJ 12.5 MG in SODIUM CHLORIDE 0.9% 50ML 50 ML IV STA (13:20)
[2016-07-21] MEDS ORDERED: PLV75 PO (13:21)
[2016-07-21] MEDS ORDERED: ALUMINUM/MAGNESIUM/SIMETH (MAALOX MAX) 30 ML UDC PO PRN (15:45)
[2016-07-21] MEDS ORDERED: ACETAMINOPHEN 325 MG TAB PO PRN (15:45)
[2016-07-21] MEDS ORDERED: MAGNESIUM HYDROXIDE SUSP 30 ML UDC PO PRN (15:45)
[2016-07-21] MEDS ORDERED: POLYETHYLENE (MIRALAX) 17 GM PACK PO PRN (15:45)
[2016-07-21] MEDS ORDERED: FLM4 PO (15:58)
[2016-07-21] MEDS ORDERED: AMLO-114 PO (15:58)
[2016-07-21] MEDS ORDERED: ONDANSETRON INJ 2 MG/ML 2 ML VIAL IV PRN (16:00)
[2016-07-21] MEDS ORDERED: PROMETHAZINE HCL INJ 12.5 MG in SODIUM CHLORIDE 0.9% 50ML 50 ML IV PRN (16:00)
[2016-07-21] MEDS ORDERED: MECLIZINE HCL 25 MG TAB PO PRN (16:15)
[2016-07-21] MEDS ORDERED: DOCUSATE SODIUM/SENNA 50/8.6MG TAB PO PRN (16:15)
[2016-07-21] MEDS ORDERED: ALBUTEROL HFA 8 GM INHALER INH PRN (16:15)
--- NOTE | 2016-07-21 16:38 | History and Physical ---
History & Physical Date & Time of Service: Jul 21, 2016 at 16:03 Chief Complaint: Sent By Family Doctor-Adina Schmitz Dehydrated Primary Care Physician: Lupe Weinstein MD History of Present Illness Source: patient, family (niece, great-niece, sister, brother in law at bedside) , clinic records, hospital records This is a 66 y/o male with a history of AAA s/p repair, HTN, HLD, COPD, DM II, BPH, GERD, and ulcerative proctitis who presented to the ED on 07/21 with nausea , vomiting, diarrhea, and abdominal pain. The patient reports having nausea, vomiting and diarrhea for the last week. He states he has not checked to see if there is any blood in the stool. He has noted some small amounts of blood in his vomitus in the last day or so. He states that he has been weak and fatigued and has not had much of an appetite over the last week. Per his family , he patient has been having falls more frequently. The patient complains of intermittent lightheadedness and dizziness. He also complains of a persistent headache located behind the forehead. He states that this pain is currently 3/ 10 sharp pain. The patient also complains of abdominal pain in the epigastric area that sometimes radiates up to the chest as well as across to his left flank. He states that this pain has actually been going on for several months. The patient had an EGD on 05/06/16 which showed some mild gastritis. Pathology report showed mild chronic gastritis. It was negative for acute inflammation, dysplasia, carcinoma or H. pylori. The patient denies fevers, chills, sweats, palpitations, claudication, cough, wheezing, shortness of breath, dysuria, hematuria, urinary retention, paralysis, numbness and tingling. Past Medical/Surgical History Medical Problems: (1) Chronic obstructive lung disease Status: Chronic (2) History of - hypertension Status: Chronic (3) Hypercholesteremia Status: Chronic Family History ALS (amyotrophic lateral sclerosis) Cancer (liver, lung) Diabetes mellitus Hypertension Social History Smoking Status: Former Smoker Smokeless Tobacco Use: No Alcohol Use: none Drug Use: none Marital Status: Housing status: lives with significant other Occupational Status: employed Immunizations History of Influenza Vaccine: N/A History of Tetanus Vaccine?: Yes Tetanus Immunization Date: Feb 26, 2012 History of Pneumococcal: Yes Pneumococcal Date: Feb 26, 2012 History of Hepatitis B Vaccine: Unknown Multi-Drug Resistant Organisms History of MDRO: No Allergies Coded Allergies: Ciprofloxacin (Unverified Allergy, Severe, hives, 07/21/16) Home Medications Scheduled Albuterol Hfa (Ventolin Hfa), 2-4 PUFFS INH Q6H Amlodipine (Norvasc), 10 MG PO DAILY Atorvastatin (Lipitor), 80 MG PO HS Balsalazide Disodium (Colazal), 2 CAP PO TID Clopidogrel Bisulfate (Clopidogrel), 1 TAB PO DAILY Fluticasone Prop/Salmeterol (Advair Diskus 250/50 60 Dose), 1 PUFF INH BID Ipratropium-Albuterol (Combivent Respimat), 2 PUFFS INH QID Metformin HCl (Metformin HCl), 500 MG PO BID Pantoprazole (Protonix), 40 MG PO BID Tamsulosin HCl (Tamsulosin HCl), 0.4 MG PO DAILY Scheduled PRN Albuterol Sulfate (Albuterol Sulfate), 1 TREATMENT INH Q 4-6 HOURS PRN for COPD Meclizine Hcl (Meclizine Hcl), 1 TAB PO TID PRN for Dizziness or Vertigo Sennosides-Docusate Sodium (Stool Softener), 1 TAB PO DAILY PRN for Constipation Review of Systems Constitutional: + fatigue, + weakness, No chills, No fever, No sweats Eyes: No diplopia, No eye pain, No worsening of vision ENT: + trouble swallowing (h/o aspiration, on mechanical soft diet), No hearing loss, No sore throat Respiratory: No cough, No shortness of breath, No wheezing Cardiovascular: + chest pain (abdominal pain sometimes radiates to chest), No claudication, No palpitations Abdomen: + diarrhea, + nausea, + pain, + vomiting Musculoskeletal: No calf pain, No joint pain, No muscle pain Genitourinary - Male: No dysuria, No hematuria, No urinary retention Neurologic: No numbness/tingling, No paralysis, No weakness Integumentary: No color change, No itch, No rash Physical Exam Vital Signs Date Time Temp Pulse Resp B/P Pulse Ox O2 Delivery O2 Flow Rate FiO2 07/21/16 14:37 56 126/65 99 Nasal Cannula 2.0 07/21/16 14:07 97 Nasal Cannula 2.0 07/21/16 13:59 68 28 151/68 87 Room Air 07/21/16 13:38 62 24 137/72 97 Room Air 07/21/16 13:31 62 07/21/16 12:54 68 24 150/83 96 Room Air 07/21/16 12:35 68 21 162/75 96 Room Air 07/21/16 12:17 62 24 152/79 100 Room Air 07/21/16 11:45 56 19 136/65 96 Room Air 07/21/16 11:27 56 07/21/16 11:10 36.7 57 17 147/78 98 Room Air General Appearance: WD/WN, no apparent distress Head: normocephalic, atraumatic Eyes: normal inspection, PERRL, EOMI ENT: normal ENT inspection, hearing grossly normal, pharynx normal, + pertinent finding (dry oral mucosa) Neck: supple, no JVD, trachea midline Respiratory/Chest: lungs clear, normal breath sounds, no respiratory distress, + decreased breath sounds (bases) Cardiovascular: regular rate, rhythm, no gallop, no murmur Abdomen/GI: normal bowel sounds, soft, + tenderness (diffuse tenderness) Extremities/Musculoskelatal: normal inspection, no calf tenderness, no pedal edema Neurologic/Psych: alert, normal mood/affect, oriented x 3 Skin: normal color, warm/dry, no rash Diagnostics Laboratory Results Results Past 24 Hours Test 07/21/16 11:20 07/21/16 11:29 07/21/16 11:35 Range/Units White Blood Count 7.77 4.8-10.8 K/uL Red Blood Count 4.91 4.7-6.1 M/uL Hemoglobin 13.6 14.0-18.0 g/dL Hematocrit 40.7 42-52 % Mean Corpuscular Volume 82.9 80-100 fL Mean Corpuscular Hemoglobin 27.7 25-34 pg Mean Corpuscular Hemoglobin Concent 33.4 32-36 g/dl Platelet Count 279 130-400 K/uL Mean Platelet Volume 9.5 7.4-10.4 fL Neutrophils (%) (Auto) 65.8 % Lymphocytes (%) (Auto) 25.7 % Monocytes (%) (Auto) 6.4 % Eosinophils (%) (Auto) 1.7 % Basophils (%) (Auto) 0.3 % Neutrophils # (Auto) 5.11 1.4-6.5 K/uL Lymphocytes # (Auto) 2.00 1.2-3.4 K/uL Monocytes # (Auto) 0.50 0.11-0.59 K/uL Eosinophils # (Auto) 0.13 0-0.5 K/uL Basophils # (Auto) 0.02 0-0.2 K/uL RDW Standard Deviation 42.7 36.4-46.3 fL RDW Coefficient of Variation 14.0 11.5-14.5 % Immature Granulocyte % (Auto) 0.1 % Immature Granulocyte # (Auto) 0.01 0.00-0.02 K/uL Prothrombin Time 11.5 9.0-12.0 SECONDS Prothromb Time International Ratio 1.1 0.9-1.1 Activated Partial Thromboplast Time 27.1 21.0-31.0 SECONDS Partial Thromboplastin Ratio 1.0 Sodium Level 139 136-145 mmol/L Potassium Level 3.8 3.5-5.1 mmol/L Chloride Level 103 98-107 mmol/L Carbon Dioxide Level 30 21-32 mmol/L Anion Gap 6.0 3-11 mmol/L Blood Urea Nitrogen 14 7-18 mg/dl Creatinine 0.95 0.60-1.40 mg/dl Est Creatinine Clear Calc Drug Dose 72.7 ml/min Estimated GFR () 95.6 Estimated GFR (Non- 82.5 BUN/Creatinine Ratio 14.2 10-20 Random Glucose 92 70-99 mg/dl Calcium Level 8.8 8.5-10.1 mg/dl Magnesium Level 1.9 1.8-2.4 mg/dl Total Bilirubin 0.4 0.2-1 mg/dl Direct Bilirubin < 0.1 0-0.2 mg/dl Aspartate Amino Transf (AST/SGOT) 10 15-37 U/L Alanine Aminotransferase (ALT/SGPT) 8 12-78 U/L Alkaline Phosphatase 111 45-117 U/L Total Creatine Kinase 533 39-308 U/L Creatine Kinase MB < 0.5 0.5-3.6 ng/ml Creatine Kinase MB Ratio 0-3.0 Total Protein 7.7 6.4-8.2 gm/dl Albumin 3.3 3.4-5.0 gm/dl Lipase 94 73-393 U/L Bedside Troponin I 0.000 0-0.045 ng/ml Diagnostic Radiology Reviewed the following studies and agree with interpretation as follows: Patient Name: OTTO BARRAGAN Unit Number: [id number] Dictated: 07/21/161234 Transcribed: 07/21/16 123 EV Printed Date/Time: [~ rep prt dt]/[~ rep prt tm] [~ rep ct labl] - [~ rep ct ivnm] [facility] [place] [address] Dictated: 07/21/16 123 Transcribed: 07/21/16 1235 EV Printed Date/Time: [~ rep prt dt]/[~ rep prt tm] [~ rep ct labl] - [~ rep ct ivnm] Patient: OTTO BARRAGAN Address1: [address] [place] [address] Rec: [id number] Address2: [place] [address] Acct ID: [id number] [facility] Zip: [place] [address] Date: 1950 Sex: M Room/Bed: Ref Phy: Tito Zepeda III, CRNP SC: C.EDC Att Phy: Report #: [id number] Kortney Phy: Lupe Weinstein MD Test: HWO Admit Phy: [facility] Director: HALEY Interpreting Phy: Sammy Leal M.D. Diagnosis: SENT BY FAMILY DOCTOR-Ainsley,Adina, DEHYDRATED Ordering Phy: Lolly Duarte M.D. Service Date: 07/21/16 Admit Date: 07/21/16 MNE: PWRSCRIBE CONF: DICTATED BY: Sammy Leal M.D.]] CC: Lolly Duarte M.D. Griel, Lester C. III, CRNP Zuniga, Tania S., MD Endcc: [~ rep ct add3]] CT SCAN OF THE BRAIN WITHOUT IV CONTRAST CLINICAL HISTORY: Headache. COMPARISON STUDY: CT of the brain dated 01/16/2016. MRI of the brain dated 01/16/2016. TECHNIQUE: Unenhanced axial CT scan of the brain is performed from the vertex to the skull base. The patient was scanned twice. FINDINGS: Brain parenchyma: There are age-related involutional changes noting moderate patchy subcortical and periventricular microangiopathic change. A chronic lacunar infarct is noted in the right caudate head. There is no hemorrhage, mass effect, or evidence of acute territorial ischemia by CT criteria. Gonzáles-white matter is preserved. No extra-axial fluid collection is seen. Ventricles, sulci, cisterns: Prominent secondary to involutional change. Intracranial vasculature: There is mild atherosclerotic calcification of the cavernous carotid arteries. Calvarium: Unremarkable. Sinuses and mastoids: The visualized paranasal sinuses are clear. The mastoid air cells are well pneumatized. Orbits: The bony orbits are grossly intact. IMPRESSION: There is no hemorrhage, mass effect, or evidence of acute territorial ischemia by CT criteria. Electronically signed by: Sammy Leal M.D. 07/21/2016 12:38 PM Dictated Date/Time: 07/21/2016 12:35 PM The status of this report is Signed. Draft = Not yet reviewed or approved by Radiologist. Signed = Reviewed and approved by Radiologist. <AttendingPhy></AttendingPhy> <FamilyPhy>Tito Zepeda III, CRNP</FamilyPhy> < PrimaryPhy>Lupe Weinstein MD</PrimaryPhy> <UnitNumber>[id number]</UnitNumber > <VisitNumber>[id number]</VisitNumber> <PatientName>OTTO BARRAGAN Nayely</ PatientName> <DateOfBirth>1950</DateOfBirth> <Location>[facility]</Location> < ServiceDate>07/21/16</ServiceDate> <MNE>ESINDI</MNE> <OrderingPhy>Lolly Duarte M.D.</OrderingPhy> <OrderingPhyMNE>f rep ord dr wolff</OrderingPhyMNE> < DictatingPhyMNE>f rep dict dr wolff</DictatingPhyMNE> <CCListMNE>f rep ct mne</ CCListMNE> <AdmittingPhyMNE>f pt admit dr wolff</AdmittingPhyMNE> <AttendingPhyMNE >f pt attend dr wolff</AttendingPhyMNE> <ConsultingPhyMNE>f pt consult dr wolff</ConsultingPhyMNE> <FamilyPhyMNE>f pt fam dr wolff</FamilyPhyMNE> <OtherPhyMNE>f pt other dr wolff</OtherPhyMNE> < PrimaryPhyMNE>f pt prim care dr wolff</PrimaryPhyMNE> <ReferringPhyMNE>f pt referring dr wolff</ReferringPhyMNE> Patient Name: OTTO BARRAGAN Unit Number: [id number] Dictated: 07/21/161235 Transcribed: 07/21/161235 PAJ Printed Date/Time: [~ rep prt dt]/[~ rep prt tm] [~ rep ct labl] - [~ rep ct ivnm] [facility] [place] [address] Dictated: 07/21/161235 Transcribed: 07/21/16 123 PAJ Printed Date/Time: [~ rep prt dt]/[~ rep prt tm] [~ rep ct labl] - [~ rep ct ivnm] Patient: OTTO BARRAGAN Address1: [address] [place] [address] Rec: [id number] Address2: [place] [address] Acct ID: [id number] [facility] Zip: [place] [address] Date: 1950 Sex: M Room/Bed: Ref Phy: Tito Zepeda III, CRNP SC: C.EDC Att Phy: Report #: [id number] Kortney Phy: Lupe Weinstein MD Test: APIV Admit Phy: [employer] Director: HALEY Interpreting Phy: Pal Richter MD Diagnosis: SENT BY FAMILY DOCTOR-Ainsley,Adina , DEHYDRATED Ordering Phy: Lolly Duarte M.D. Service Date: 07/21/16 Admit Date: 07/21/16 MNE: PWRSCRIBE CONF: DICTATED BY: Pal Richter M.D.]] CC: Lolly Duarte M.D. Griel, Lester C. III, CRNP Zuniga, Tania S., MD Endcc: [~ rep ct add3]] ABDOMEN AND PELVIS CT WITH IV CONTRAST CT DOSE: 1141.71 mGy.cm HISTORY: Vomiting. Diarrhea. TECHNIQUE: Multiaxial CT images of the abdomen and pelvis were performed following the use of intravenous contrast. COMPARISON STUDY: None. FINDINGS: There is a 5 mm subpleural nodule within the right lower lobe on image 10 of 501. Mild bibasilar interstitial thickening which is likely chronic. No pneumoperitoneum. No pneumatosis. There are 2 hypodense lesions within the liver, unchanged. The largest in the left hepatic lobe measures 3.1 cm. These likely represent cysts. Cholecystectomy. Mild central intrahepatic bile duct dilatation, unchanged. This is likely due to the patient's postcholecystectomy state. The pancreas, spleen, adrenal glands are unremarkable. Bilateral nephrolithiasis. No hydronephrosis. Multiple bilateral renal hypodense lesions are again noted. These likely represent cysts. There is a 9 mm hypodensity within the lower pole the right kidney which may demonstrate slight enhancement. This is incompletely characterized on this single contrast study. The bladder is unremarkable. Prior left inguinal hernia repair. No bowel wall thickening or obstruction. Normal appendix. The patient is status post aortobiiliac stent graft repair of abdominal aortic aneurysm. The aneurysm sac has decreased in size. The sac currently measures 3.8 x 3.6 cm. IMPRESSION: 1. No bowel wall thickening or obstruction. 2. Normal appendix. 3. Hepatic and renal cysts are again noted. 4. Interval aortobiiliac stent graft repair of abdominal aortic aneurysm. The aneurysm sac has decreased in size. 5. A 9 mm hypodense lesion within the lower pole the right kidney which does not clearly represent a simple cyst. Recommend dedicated follow-up nonemergent renal CT to exclude a renal mass. 6. A 5 mm subpleural indeterminate pulmonary nodule within the right lower lobe. Please refer to the chart below for recommended follow-up. 7. Bilateral nephrolithiasis. No hydronephrosis. Please refer to below summary of Fleischner criteria recommendations for follow-up of incidental CT nodules (Mook Blum, Guidelines for management of small pulmonary nodules detected on CT scans: A statement from the Fleischner Society, Radiology 237: [phone].) Low Risk Patient: Minimal or no smoking or other known risk factors for malignancy <=4 mm: No follow-up needed. >4-6 mm: Initial follow-up CT at 12 months; if unchanged, no further follow-up. >6-8 mm: Initial follow-up CT at 6-12 months then at 18-24 months if no change. >8 mm: Follow-up CT at \R\3, 9, 24 months, or PET and/or biopsy. High Risk Patient: History of smoking or other known risk factors <=4 mm: Follow-up at 12 months; if unchanged, no further follow-up. >4-6 mm: Initial follow-up CT at 6-12 months then at 18-24 months if no change. >6-8 mm: Initial follow-up CT at 3-6 months then at 9-12 and 24 months if no change. >8 mm: Same as low risk patient. Note: Nodule size measured as average of length and width. Ground glass or partly solid nodules may require longer follow-up to exclude indolent adenocarcinoma. Electronically signed by: Pal Richter M.D. 07/21/2016 12:51 PM Dictated Date/Time: 07/21/2016 12:36 PM The status of this report is Signed. Draft = Not yet reviewed or approved by Radiologist. Signed = Reviewed and approved by Radiologist. <AttendingPhy></AttendingPhy> <FamilyPhy>Tito Zepeda III, CRNP</FamilyPhy> < PrimaryPhy>Lupe Weinstein MD</PrimaryPhy> <UnitNumber>[id number]</UnitNumber > <VisitNumber>[id number]</VisitNumber> <PatientName>OTTO BARRAGAN</ PatientName> <DateOfBirth>1950</DateOfBirth> <Location>C.[facility]</Location> < ServiceDate>07/21/16</ServiceDate> <MNE>ESINDI</MNE> <OrderingPhy>Lolly Duarte M.D.</OrderingPhy> <OrderingPhyMNE>f rep ord mnnayely</OrderingPhyMNE> < DictatingPhyMNE>f rep dict mne</DictatingPhyMNE> <CCListMNE>f rep ct mne</ CCListMNE> <AdmittingPhyMNE>f pt admit dr wolff</AdmittingPhyMNE> <AttendingPhyMNE >f pt attend dr wolff</AttendingPhyMNE> <ConsultingPhyMNE>f pt consult dr wolff</ConsultingPhyMNE> <FamilyPhyMNE>f pt fam dr wolff</FamilyPhyMNE> <OtherPhyMNE>f pt other dr wolff</OtherPhyMNE> < PrimaryPhyMNE>f pt prim care dr wolff</PrimaryPhyMNE> <ReferringPhyMNE>f pt referring dr wolff</ReferringPhyMNE> EKG Reviewed EKG and agree with interpretation as follows: 57 bpm, sinus bradycardia Impression Assessment and Plan 66 y/o male with a history of AAA s/p repair, HTN, HLD, COPD, DM II, BPH, GERD, and ulcerative proctitis who presented to the ED on 07/21 with nausea, vomiting, diarrhea, and abdominal pain. Patient did have several episodes of vomiting green/brown liquid per nursing in the ED. He was given 2 doses of Zofran, which did not seem to help. The vomiting has ceased since receiving promethazine. Patient reports weakness and fatigue. He has apparently been having frequent falls lately. CT of the head negative for acute findings. CT of the abdomen/pelvis negative for acute infectious or inflammatory findings. VSS on arrival. CK mildly elevated at 533 on arrival, troponin negative. Initial labs otherwise grossly unremarkable. Nausea, vomiting, diarrhea, weakness and fatigue--no obvious infectious etiology at this point. UA pending -Admit to MedSurg -Hydrate with NSS at 100 cc/hr -Nausea control with promethazine 12.5 mg IV q6h and Zofran 4 mg IV q6h prn nausea/vomiting -MRI of the brain without contrast. Family concerned about recent weakness and falls. Patient also has history of aspiration. Family noted a family history of ALS -PT/OT evaluate and treat 5 mm subpleural pulmonary nodule on CT, h/o smoking -Recommend follow-up CT in 6-12 months, then in 18-24 months if no change HTN--stable -Continue Norvasc 10 mg PO qd HLD -Continue Lipitor 80 mg PO qd COPD -Continue Advair BID, Combivent 2 puffs inhaled QID, and albuterol inhaler prn Diabetes mellitus type 2--last hemoglobin A1c checked on 06/28/16 was 6.0 -Hold metformin -Insulin sliding scale -Check BSGs q ac and qhs BPH -Continue Flomax 0.4 mg PO qd GERD -Continue Protonix 40 mg PO BID Ulcerative proctitis -Continue balsalazide 1500 mg PO TID DVT prophylaxis -Enoxaparin 40 mg SC q24h -LISANDRO doherty and NOHEMIs Code Status -Level I, FULL RESUSCITATION STATUS This chart was completed in part utilizing [employer] Speech Voice Recognition software. Attempts were made to minimize the grammatical errors, random word insertions, pronoun errors and incomplete sentences. Any formal questions or concerns about the content, text or information contained within the body of this dictation should be directly addressed to the provider for clarification. I agree with PA assessment and plan and have personally seen and examined pt myself Pt presents with intractable N/V x [address] abd unremarkable ?gastroenteritis Pt dry on exam Cont IVF Deconditioning and mult falls per family MRI brain pending Will likely need placement Level of Care Med/Surg Resuscitation Status FULL RESUSCITATION VTE Prophylaxis VTE Risk Assessment Done? Y/N: Yes Risk Level: Moderate Given or contraindicated: Enoxaparin (Lovenox)SQ, T.E.D. Stockings, SCD's
[2016-07-21] MEDS ORDERED: GLUCOSE 10 TABS/TUBE PO PRN (16:45)
[2016-07-21] MEDS ORDERED: GLUCOSE 40% GEL 15 GM TUBE PO PRN (16:45)
[2016-07-21] MEDS ORDERED: GLUCAGON FOR INJ 1 MG VIAL SQ PRN (16:45)
[2016-07-21] MEDS ORDERED: DEXTROSE 50% 50 ML SYR IV PRN (16:45)
[2016-07-21] MEDS: IPRATROPIUM BROMIDE/ALBUTEROL respimat INH INH SCH ×2 (17:00→20:00)
[2016-07-21 18:30] VITALS: BP 139/78; PULSE 55; TEMP 36.7; O2SAT 94; Ht 175.3 cm; Wt 68.1 kg
[2016-07-21] MEDS ORDERED: ENOXAPARIN 40 MG/0.4 ML SYR SQ SCH (21:00)
--- NOTE | 2016-07-21 21:10 | DIAGNOSTIC IMAGING REPORT ---
MRI OF THE BRAIN WITHOUT CONTRAST CLINICAL HISTORY: Change in mental status. Headache. Weakness. COMPARISON STUDY: CT scan dated 07/19/2016, MRI the brain dated 01/16/2016 FINDINGS: Sagittal T1, axial diffusion, proton density and T2 weighted axial, coronal FLAIR, and axial T1-weighted images were acquired. No intra or extra-axial mass lesions are visualized Axial diffusion-weighted images reveal no evidence of acute or subacute infarction. There is no evidence of ventricular dilatation. Proton density T2-weighted and FLAIR images reveal extensive foci of increased T2 signal within the white matter, similar to the preceding study. There are no abnormal flow voids. IMPRESSION: 1. No evidence of intracranial mass in this noncontrast study 2. No evidence of acute or subacute infarction 3. Extensive nonspecific foci of increased T2 and FLAIR signal within the white matter, similar to the preceding January 2016 study. Electronically signed by: Wander Khoury M.D. 07/21/2016 9:08 PM Dictated Date/Time: 07/21/2016 9:05 PM
[2016-07-21] MEDS: FLUTICASONE/SALMETEROL 250/50 (ADVAIR) 14 PUFF/1 INHALER INH SCH (21:36)
[2016-07-21] MEDS: PANTOprazole SOD 40 MG TAB PO SCH (21:39)
[2016-07-21] MEDS: INSULIN ASPART 100 UNITS/ML 3 ML PEN SC SCH (21:41)
[2016-07-21] MEDS: SODIUM CHLORIDE 0.9% 1000ML 1,000 ML IV SCH (21:43)
[2016-07-21] MEDS ORDERED: ATORVASTATIN 40 MG TAB PO SCH (22:00)
[2016-07-22] VITALS: O2SAT 94
[2016-07-22 00:02] VITALS: BP 125/61; PULSE 60; TEMP 36.8; O2SAT 93
[2016-07-22] MEDS: SODIUM CHLORIDE 0.9% 1000ML 1,000 ML IV SCH ×2 (02:00→12:27)
[2016-07-22 06:42] LABS: HEMATOCRIT 38.5 % (42-52); MEAN CELL VOLUME 84.8 fL (80-100); MEAN CORPUSCULAR HEMOGLOBIN 27.5 pg (25-34); MEAN CORPUSCULAR HGB CONC 32.5 g/dl (32-36); MEAN PLATELET VOLUME 9.6 fL (7.4-10.4); PLATELET COUNT 260 K/uL (130-400); RED BLOOD COUNT 4.54 M/uL (4.7-6.1); WHITE BLOOD COUNT 5.73 K/uL (4.8-10.8)
[2016-07-22 07:17] LABS: BUN/CREATININE RATIO 13.9 (10-20); CALCIUM 8.4 mg/dl (8.5-10.1); CREATININE 0.89 mg/dl (0.60-1.40); POTASSIUM 3.5 mmol/L (3.5-5.1)
[2016-07-22] MEDS: INSULIN ASPART 100 UNITS/ML 3 ML PEN SC SCH ×3 (07:23→16:30)
[2016-07-22 08:00] VITALS: BP 119/64; PULSE 53; TEMP 36.6; O2SAT 92
[2016-07-22] MEDS ORDERED: CLOPIDOGREL BISULFATE 75 MG TAB PO SCH (08:00)
[2016-07-22] MEDS ORDERED: AMLODIPINE BESYLATE 5 MG TAB PO SCH (08:00)
[2016-07-22] MEDS ORDERED: TAMSULOSIN HCL 0.4 MG CAP PO SCH (08:00)
[2016-07-22] MEDS: IPRATROPIUM BROMIDE/ALBUTEROL respimat INH INH SCH ×2 (08:28→11:41)
[2016-07-22] MEDS: FLUTICASONE/SALMETEROL 250/50 (ADVAIR) 14 PUFF/1 INHALER INH SCH (08:29)
[2016-07-22] MEDS: PANTOprazole SOD 40 MG TAB PO SCH (09:04)
[2016-07-22 09:44] LABS: URINE APPEARANCE CLEAR (CLEAR); URINE BILIRUBIN NEG (NEG); URINE COLOR YELLOW; URINE NITRITE NEG (NEG); URINE SPECIFIC GRAVITY 1.013 (1.000-1.030); UROBILINOGEN NEG (NEG); ZZUR CULT IF INDIC CLEAN CATCH NO
[2016-07-22 09:45] LABS: MANUAL MICROSCOPIC REQUIRED? NO; REVIEW REQ? NO
[2016-07-22] MEDS ORDERED: CRFL PO (15:10)
--- NOTE | 2016-07-22 15:14 | Discharge Instructions ---
Discharge Instructions Date of Service Jul 22, 2016. Admission Reason for Admission: Abdominal Pain Discharge Discharge Diagnosis / Problem: Epigastric abdominal pain, unknown etiology, recent history of gastritis Discharge Goals Goal(s): Decrease discomfort, Improve function Activity Recommendations Activity Limitations: resume your previous activity Lifting Limitations: none Exercise/Sports Limitations: as tolerated May Resume Sexual Activity: when tolerated Shower/Bathe: no limitations . Instructions / Follow-Up Instructions / Follow-Up Medications: - CARAFATE: take 4 times a day, take with meals and at bedtime, take for 7 days and see if pain is improved or resolves In summary, you have c/o epigastric (upper) abdominal pain, recurrent, weeks now. Only positive finding recently was gastritis on EGD in May. Please continue with Protonix and add Carafate for 7 days as a trial to see if pain resolves. Please follow up with Dr. Weinstein in one weeks time to assess any improvement in the pain. Imaging/testing shows no other possible causes of the pain. If he continues to have pain despite Carafate and Protonix, could be referred back to Dr. Meeks with GI for repeat EGD, otherwise, I would not have any other recommendations. FOLLOW UP - call for appointment with Dr. Weinstein in one week Current Hospital Diet Patient's current hospital diet: Diabetes Type 2 Diet Discharge Diet Recommended Diet: Diabetes Type 2 Diet Pending Studies Studies pending at discharge: no Laboratory Results Last Resulted CBC 07/22/16 06:15 Last Resulted BMP 07/22/16 06:15 Hemoglobin A1c Test 06/28/16 08:52 Range/Units Estimated Average Glucose 126 mg/dl Hemoglobin A1c 6.0 H 4.5-5.6 % Lipid Panel Test 06/28/16 08:52 Range/Units Triglycerides Level 139 0-150 mg/dl Cholesterol Level 208 H 0-200 mg/dl HDL Cholesterol 48 mg/dl Cholesterol/HDL Ratio 4.3 LDL Cholesterol, Calculated 132 mg/dl Medical Emergencies . Who to Call and When: Medical Emergencies: If at any time you feel your situation is an emergency, please call 911 immediately. . Non-Emergent Contact Non-Emergency issues call your: Primary Care Provider Call Non-Emergent contact if: your pain is worsening, you have any medication questions . . "Provider Documentation" section prepared by Bryan Palacios. VTE Core Measure Inpt VTE Proph given/why not?: Enoxaparin (Lovenox)SQ, TPancho. Matheus, SCD's [place] Drug Monitoring Program Search Results: no issues identified
[2016-07-22 15:22] VITALS: BP 106/57; PULSE 57; TEMP 36.6; O2SAT 94
[2016-07-22] MEDS ORDERED: SUCRALFATE 1 GM/10 ML UDC PO ONE (15:30)
[2016-07-22 16:27] VITALS: BP 106/57; PULSE 57; TEMP 36.6; O2SAT 94
--- NOTE | 2016-07-23 07:46 | Discharge Summary ---
Discharge Summary Date of Service Jul 23, 2016. Discharge Summary Admission Date: Jul 21, 2016 at 15:51 Discharge Date: Jul 22, 2016 Discharge Disposition: Home Principal Diagnosis: Epigastric abdominal pain, h/o gastritis Problems/Secondary Diagnoses: s/p AAA graft s/p cholecystectomy HTN, HLD, COPD, DM II, BPH, GERD Immunizations: Have You Had Influenza Vaccine: N/A History of Tetanus Vaccine?: Yes Tetanus Immunization Date: Feb 26, 2012 History of Pneumococcal: Yes Pneumococcal Date: Feb 26, 2012 History of Hepatitis B Vaccine: Unknown Procedures: CT abdomen and pelvis: no acute changes, s/p AAA repair Consultations: none Medication Reconciliation New Medications: Sucralfate (Carafate) 1 Gm/10 Ml Jennifer 10 ML PO QID for 7 Days, #280 ML Continued Medications: Albuterol Hfa (Ventolin Hfa) 200 Puffs/41539 Mcg Aers 2-4 PUFFS INH Q6H, INHALER Albuterol Sulfate (Albuterol Sulfate) 0.63 Mg/3 Ml Neb 1 TREATMENT INH Q 4-6 HOURS PRN for COPD Amlodipine (Norvasc) 10 Mg Tab 10 MG PO DAILY, TAB Atorvastatin (Lipitor) 80 Mg Tab 80 MG PO HS, #30 TAB Balsalazide Disodium (Colazal) 750 Mg Cap 2 CAP PO TID Clopidogrel Bisulfate (Clopidogrel) 75 Mg Tab 1 TAB PO DAILY Fluticasone Prop/Salmeterol (Advair Diskus 250/50 60 Dose) 1 Ea Aerp 1 PUFF INH BID Ipratropium-Albuterol (Combivent Respimat) 1 Aer Aer 2 PUFFS INH QID, INH Meclizine Hcl (Meclizine Hcl) 25 Mg Tab 1 TAB PO TID PRN for Dizziness or Vertigo for 10 Days, #30 TAB Metformin HCl (Metformin HCl) 500 Mg Tab 500 MG PO BID Pantoprazole (Protonix) 40 Mg Tab 40 MG PO BID, TAB Sennosides-Docusate Sodium (Stool Softener) 1 Tab Tab 1 TAB PO DAILY PRN for Constipation Tamsulosin HCl (Tamsulosin HCl) 0.4 Mg Cap 0.4 MG PO DAILY Discharge Exam patient feeling well on day of discharge, no issues overnight. his abdominal pain was largely resolved, tolerating diabetic diet for breakfast and lunch. no vomiting. he said that he would have abdominal pain with palpation to the epigastric region or with heavy lifting. suggests that maybe the pain is musculoskeletal, especially since it has been going on for 6 weeks and there is no abdominal etiology on multiple scopes and imaging studies. patient wanted to go home and family agreed that he was well enough and would follow up with his PCP. Review of Systems: Constitutional: No chills, No fatigue, No fever, No problem reported, No sweats, No weakness, No weight loss Eyes: No diplopia, No discharge, No eye pain, No problem reported, No redness, No worsening of vision ENT: No dental problems, No hearing loss, No nasal symptoms, No problem reported, No sore throat, No tinnitus, No trouble swallowing, No unusual epistaxis Respiratory: No cough, No dyspnea at rest, No dyspnea on exertion, No hemoptysis, No problem reported, No shortness of breath, No sputum, No wheezing Cardiovascular: No PND, No chest pain, No claudication, No edema, No orthopnea, No palpitations, No problem reported Abdomen: + pain (epigastric, not after meals, only with palpation or heavy lifting, not with changing position), No GI bleeding, No constipation, No diarrhea, No nausea, No problem reported, No vomiting Musculoskeletal: No calf pain, No joint pain, No muscle pain, No problem reported, No swelling Genitourinary - Male: No dysuria, No hematuria, No urinary frequency, No urinary hesitancy, No urinary retention, No urinary urgency Neurologic: + weakness, No balance problems, No memory loss, No numbness/ tingling, No paralysis, No problem reported, No vertigo Psychiatric: No anhedonism, No anxiety, No depression symptoms, No insomnia , No problem reported, No substance abuse Endocrine: No excessive thirst, No excessive urination, No fatigue, No problem reported Hematologic / Lymphatic: No abnormal bleeding/bruising, No clotting problems , No night sweats, No problem reported, No swollen lymph nodes Integumentary: No bleeding, No color change, No itch, No new/changing skin lesions, No problem reported, No rash Physical Exam: General Appearance: WD/WN, no apparent distress Eyes: normal inspection, EOMI, sclerae normal ENT: normal ENT inspection, hearing grossly normal, pharynx normal Neck: supple, no adenopathy, no JVD, trachea midline Respiratory/Chest: chest non-tender, lungs clear, normal breath sounds, no respiratory distress, no accessory muscle use Cardiovascular: regular rate, rhythm, no edema, no gallop, no JVD, no murmur , normal peripheral pulses Abdomen / GI: normal bowel sounds, non tender, soft, no organomegaly Extremities: normal inspection, no calf tenderness, normal capillary refill , no pedal edema, normal range of motion, pelvis stable Neurologic/Psychiatric: city [employer] II-XII nml as tested, no motor/sensory deficits , alert, normal mood/affect, normal reflexes, oriented x 3 Skin: normal color, warm/dry, no rash Lymphatic: no adenopathy Hospital Course 66 y/o male with a history of AAA s/p repair, HTN, HLD, COPD, DM II, BPH, GERD, and ulcerative proctitis who presented to the ED on 07/21 with nausea, vomiting, diarrhea, and abdominal pain. Patient did have several episodes of vomiting green/brown liquid per nursing in the ED. He was given 2 doses of Zofran, which did not seem to help. The vomiting has ceased since receiving promethazine. Patient reports weakness and fatigue. He has apparently been having frequent falls lately. CT of the head negative for acute findings. CT of the abdomen/pelvis negative for acute infectious or inflammatory findings. VSS on arrival. CK mildly elevated at 533 on arrival, troponin negative. Initial labs otherwise grossly unremarkable. Nausea, vomiting, diarrhea, weakness and fatigue, abdominal pain--no obvious etiology at this point symptoms for several weeks/months, multiple imaging studies without etiology only positive finding was EGD in early May that showed gastritis, biopsies showed chronic gastritis, no malignancy, neg H pylori colonoscopy showed polyps, diverticula, no inflammatory changes CT abdomen/pelvis showed AAA repair in good position, no obstruction, no infection, no hernia MRI brain - no acute ischemia, no masses, prior lesion seen in 2016 stable on exam he is tender to just light palpation, is the pain musculoskeletal? also gets pain with lifting heavy objects, not with position change eating all of his meals, no vomiting, no post-prandial pain will give trial of Carafate QID x 7 days to see if pain improved or resolves and follow up closely with PCP continue PPI BID follow up with PCP next week, if pain persists then could consider outpatient GI referral, sees Dr. Meeks 5 mm subpleural pulmonary nodule on CT, h/o smoking -Recommend follow-up CT in 6-12 months, then in 18-24 months if no change HTN--stable -Continue Norvasc 10 mg PO qd HLD -Continue Lipitor 80 mg PO qd COPD -Continue Advair BID, Combivent 2 puffs inhaled QID, and albuterol inhaler prn Diabetes mellitus type 2--last hemoglobin A1c checked on 06/28/16 was 6.0 -continue metformin -Insulin sliding scale -Check BSGs q ac and qhs BPH -Continue Flomax 0.4 mg PO qd GERD -Continue Protonix 40 mg PO BID Ulcerative proctitis -Continue balsalazide 1500 mg PO TID DVT prophylaxis -Enoxaparin 40 mg SC q24h -LISANDRO Saxena Code Status -Level I, FULL RESUSCITATION STATUS d/c home, did well with therapy evaluations Total Time Spent: Greater than 30 minutes This includes examination of the patient, discharge planning, medication reconciliation, and communication with other providers. Discharge Instructions Please refer to the electronic Patient Visit Report (Discharge Instructions) for additional information. Follow-Up Dr. Weinstein next week Additional Copies To Enrique Meeks D.O.; Lupe Weinstein MD
== END 2016-07-22 17:10 | disposition home health service (06) | DRG 392 ==
LOC: ENRESERVTM → ENRESERVDT → C.EDB 11:06 → C.MS4W 15:51
PROVIDERS: ADMIT Hospitalist; ATTEND Internal Medicine
DX: K52.9 Noninfective gastroenteritis and colitis, unspecified (principal); K51.20 Ulcerative (chronic) proctitis without complications; E86.0 Dehydration; R53.1 Weakness; R53.81 Other malaise; R29.6 Repeated falls; R91.1 Solitary pulmonary nodule; J44.9 Chronic obstructive pulmonary disease, unspecified; E11.9 Type 2 diabetes mellitus without complications; E78.00 Pure hypercholesterolemia, unspecified; E78.5 Hyperlipidemia, unspecified; K21.9 Gastro-esophageal reflux disease without esophagitis; N40.0 Benign prostatic hyperplasia without lower urinary tract symptoms; Z82.0 Family history of epilepsy and other diseases of the nervous system; Z87.891 Personal history of nicotine dependence; Z79.51 Long term (current) use of inhaled steroids; Z79.02 Long term (current) use of antithrombotics/antiplatelets; Z79.84 Long term (current) use of oral hypoglycemic drugs; Z79.899 Other long term (current) drug therapy

== ENCOUNTER → 2016-08-18 | Outpatient (CLI) | payer OTHER ==
[~2016-08-18] MED LIST changes: -ALBU1AER9 INH; +AMLO-114 PO; +BALS1CAP2 PO; -BISM262C5 PO; +FLM4 PO; -NRV/5 PO; +PANT40TA PO; +PLV75 PO; -TAMS0.4C38 PO; +VNTHFA/IN INH
--- NOTE | 2016-08-18 12:02 | DIAGNOSTIC IMAGING REPORT ---
CHEST CT WITHOUT CONTRAST CT DOSE: 241.69 mGycm HISTORY: Pulmonary nodules. Follow-up lung nodules. TECHNIQUE: Multiaxial CT images of the chest were performed without contrast. COMPARISON: Chest CT 03/23/2016. FINDINGS: No pneumothorax. No new focal lung consolidations to suggest pneumonia. No pleural effusions. Stable 5 mm nodule within the left lower lobe abutting the heart on image 244. Trace mucoid material within the small scarlike density within the right lung apex posteriorly. Stable 5 mm subpleural nodule within the medial to the right lower lobe on image 215. No new pulmonary nodules identified. Nodularity within the right bronchus has resolved. Minimal nodularity within the left lower lobe bronchi is new and likely represent mucoid material. Old, healed left-sided rib fractures. No mediastinal or hilar lymphadenopathy. Normal caliber thoracic aorta. The heart is normal in size. Stable 3.2 cm cyst within the left hepatic lobe. Cholecystectomy. Normal adrenal glands. Additional 1.2 cm hypodense lesion within the right hepatic lobe is also stable. IMPRESSION: 1. Right mainstem bronchus nodularity has resolved. Small amount of new nodularity within the left lower lobe bronchi favors mucoid material. 2. Stable subcentimeter indeterminate pulmonary nodules measuring 5 mm. Continued follow-up as detailed below. 3. Emphysema. Please refer to below summary of Fleischner criteria recommendations for follow-up of incidental CT nodules (Mook Blum, Guidelines for management of small pulmonary nodules detected on CT scans: A statement from the Fleischner Society, Radiology 237: [phone].) SOLID NODULES Solitary nodule size: <6 mm * Low risk patients: no follow-up needed * high risk patients: optional CT at 12 months Solitary nodule size: 6-8 mm * Low risk patients: follow-up at 6-12 months, then consider further follow-up at 18-24 months * high risk patients: initial follow-up CT at 6-12 months and then at 18-24 months if no change Solitary nodule size: >8 mm * either low or high risk patients - consider follow-up CT at 3 months, and/or CT-PET, and/or biopsy Multiple nodules size: <6 mm * Low risk patients: no routine follow-up * high risk patients: optional CT at 12 months Multiple nodules size: 6-8 mm * Low risk patients: follow-up at 3-6 months, then consider further follow-up at 18-24 months * high risk patients: follow-up at 3-6 months, then at 18-24 months if no change Multiple nodules size: >8 mm * Low risk patients: follow-up at 3-6 months, then consider further follow-up at 18-24 months * high risk patients: follow-up at 3-6 months, then at 18-24 months if no change Note: newly detected indeterminate nodule in persons 35 years of age or older. * Low risk patients: minimal or absent history of smoking and/or other known risk factors * high risk patients: history of smoking or of other known risk factors (e.g. first degree relative with lung cancer, or exposure to asbestos, radon, uranium) * if a nodule up to 8 mm is partly solid or is ground glass further follow-up is required after 24 months to exclude possible slow growing adenocarcinoma (HEATHER) SUBSOLID NODULES Solitary pure ground-glass nodule * nodule size <6 mm - no CT follow-up required * nodule size >=6 mm - follow-up CT at 6-12 months, then every 2 years until 5 years Solitary part-solid nodule * nodule size <6 mm - no CT follow-up required * nodule size >=6 mm - follow-up CT at 3-6 months. If unchanged, and solid component remains <6 mm, then annual follow-up for 5 years Multiple subsolid nodules * nodule size <6 mm - follow-up CT at 3-6 months, consider further follow-up at 2 and 4 years if stable * nodule size >=6 mm - follow-up CT at 3-6 months, subsequent management based on the most suspicious nodule(s) Electronically signed by: Pal Richter M.D. 08/18/2016 11:59 AM Dictated Date/Time: 08/18/2016 11:46 AM
== END | disposition home or self-care (01) ==
LOC: C.CTS 10:47
PROVIDERS: ATTEND Family Medicine
DX: R91.8 Other nonspecific abnormal finding of lung field (principal); J43.9 Emphysema, unspecified

== ENCOUNTER → 2017-01-03 | Outpatient (CLI) | payer OTHER | END | disposition home or self-care (01) | LOC: C.LAB 10:40 | PROVIDERS: ATTEND Urology | DX: N40.1 Benign prostatic hyperplasia with lower urinary tract symptoms (principal) ==

== ENCOUNTER → 2017-01-11 | Outpatient (CLI) | payer OTHER ==
--- NOTE | 2017-01-11 16:33 | DIAGNOSTIC IMAGING REPORT ---
KUB HISTORY: Left FLANK PAIN, R/O Stone, don't HOLD PT, CTS BEFORE COMPARISON: Abdomen and pelvis CT 01/11/2017. FINDINGS: The bowel gas pattern is unremarkable. There are no dilated loops of small bowel to suggest an obstruction. 4 mm stone within the lower pole of the right kidney. There are 2 stones within the lower pole of the left kidney. No ureteral or bladder calculus identified. Aortobiiliac stent graft is noted. No pneumoperitoneum or pneumatosis. IMPRESSION: Bilateral nephrolithiasis. No ureteral calculi. Electronically signed by: Pal Richter M.D. 01/11/2017 4:32 PM Dictated Date/Time: 01/11/2017 4:28 PM
--- NOTE | 2017-01-11 16:45 | DIAGNOSTIC IMAGING REPORT ---
ABDOMEN AND PELVIS CT WITHOUT CONTRAST CT DOSE: 370.69 mGy.cm HISTORY: Left FLANK PAIN, R/O Stone, don't HOLD PT, RAD AFTER TECHNIQUE: Multiaxial CT images of the abdomen and pelvis were performed without the use of intravenous and oral contrast according to the standard department stone protocol. A dose lowering technique was utilized adhering to the principles of ALARA. COMPARISON STUDY: Abdomen and pelvis CT 07/21/2016. FINDINGS: The lung bases are clear. No pneumoperitoneum. No pneumatosis. There are 2 hypodense lesions within the liver, unchanged. The largest in the left hepatic lobe measures 3.1 cm. These likely represent cysts. Cholecystectomy. Mild central intrahepatic bile duct dilatation, unchanged. This is likely due to the patient's postcholecystectomy state. The pancreas, spleen, adrenal glands are unremarkable. Bilateral nephrolithiasis with a single 5 mm stone within the lower pole the right kidney and 2 4 mm stones within the lower pole the left kidney, unchanged. No ureteral calculi. No hydronephrosis. Multiple bilateral renal hypodense lesions are again noted. These likely represent cysts. However, these are incompletely characterized on this non-contrast study. A 9 mm hypodense lesion within the lower pole the right kidney is again noted. This is best seen on image 77. This may demonstrate enhancement in comparison to the prior study. The bladder is unremarkable. Prior left inguinal hernia repair. No bowel wall thickening or obstruction. Normal appendix. The patient is status post aortobiiliac stent graft repair of abdominal aortic aneurysm. The aneurysm sac has decreased in size. The sac currently measures 3.4 x 3.0 cm. The prostate gland is mildly enlarged. Prior left inguinal hernia repair. Suboptimal evaluation for bowel pathology due to the lack of intravenous and oral contrast. A few sigmoid diverticula. IMPRESSION: 1. No bowel wall thickening or obstruction. 2. Normal appendix. 3. Stable bilateral nephrolithiasis. No ureteral calculi. No hydronephrosis.. 4. Prior aortobiiliac stent graft repair of abdominal aortic aneurysm. The aneurysm sac has decreased in size. 5. A 9 mm hypodense lesion within the lower pole the right kidney which does not clearly represent a simple cyst when compared to the prior study. Recommend dedicated follow-up nonemergent renal CT or MRI to exclude a renal mass. Electronically signed by: Pal Richter M.D. 01/11/2017 4:43 PM Dictated Date/Time: 01/11/2017 4:32 PM
== END | disposition home or self-care (01) ==
LOC: C.CTS 15:47
PROVIDERS: ATTEND Urology
DX: R10.9 Unspecified abdominal pain (principal)

== ENCOUNTER → 2017-03-15 | Outpatient (CLI) | payer OTHER ==
--- NOTE | 2017-03-15 12:41 | DIAGNOSTIC IMAGING REPORT ---
(CHEST) THORAX WITHOUT CT DOSE: 254.72 mGycm CLINICAL HISTORY: 66 years-old Male with R91.8 Pulmonary nodules7 month f/u to lung nodules. E X0D E CTS. Follow-up study in a patient with pulmonary nodules TECHNIQUE: Multiaxial CT images of the chest were performed without contrast. A dose lowering technique was utilized adhering to the principles of ALARA. COMPARISON: Chest CT 08/18/2016. FINDINGS: Heterogeneity of the thyroid without dominant nodule. Coarse calcifications involve the inferior medial left thyroid lobe. No pathologic adenopathy about the chest identified. Mildly prominent nonspecific precarinal lymph node measures 1.8 x 0.8 cm. Heart is within normal limits without pericardial effusion. Coronary arterial calcifications are present. No thoracic aortic aneurysm identified. There is no pneumothorax or pleural effusion. Severe upper lobe predominant centrilobular and paraseptal emphysema. No lobar airspace consolidation to suggest pneumonia. There is a calcified granuloma in the right lower lobe, subcentimeter on image 212 series 4. Pleural-based 5 mm pulmonary nodule of the right lower lobe as seen on image 23 series 4, unchanged from study dated 08/18/2016. 5 mm pleural-based noncalcified pulmonary nodule is also noted within the left lower lobe on image 221 series 4. This is also unchanged. Minimal subpleural reticulation with tree-in-bud nodularity involves the bilateral basal lower lobes as seen on image 270 of series 4. No new or enlarging pulmonary nodules identified. Ill-defined groundglass opacities of the lingula suggest atelectasis. No endobronchial mass lesions identified. Mild bronchial wall thickening at the level lung bases suggest bronchitis. No acute amount of the imaged upper abdomen. Multiple low attenuating lesions of the liver are again seen suggesting cysts, largest of which measures 3.2 cm within the lateral left hepatic lobe. Soft tissues are unremarkable. Multiple remote left-sided rib fractures. Multilevel endplate spurring of the spine with mild bone demineralization. IMPRESSION: 1. Stable size of 5 mm noncalcified nodules of the bilateral lower lobes. 2. Emphysema with mild subsegmental subpleural reticular opacities and tree-in-bud nodularity of the basal lower lobes suggests mild bronchiolitis. No lobar airspace consolidation to suggest pneumonia. Please refer to below summary of Fleischner criteria recommendations for follow-up of incidental CT nodules (H MacMahon, Guidelines for management of small pulmonary nodules detected on CT scans: A statement from the Fleischner Society, Radiology 237: [phone].) SOLID NODULES Multiple nodules size: <6 mm * Low risk patients: no routine follow-up * high risk patients: optional CT at 12 months Note: newly detected indeterminate nodule in persons 35 years of age or older. * Low risk patients: minimal or absent history of smoking and/or other known risk factors * high risk patients: history of smoking or of other known risk factors (e.g. first degree relative with lung cancer, or exposure to asbestos, radon, uranium) * if a nodule up to 8 mm is partly solid or is ground glass further follow-up is required after 24 months to exclude possible slow growing adenocarcinoma (HEATHER) The above report was generated using voice recognition software. It may contain grammatical, syntax or spelling errors. Electronically signed by: Cabrera Aguilar M.D. 03/15/2017 12:39 PM Dictated Date/Time: 03/15/2017 12:32 PM
== END | disposition home or self-care (01) ==
LOC: C.CTS 12:15
PROVIDERS: ATTEND Family Medicine
DX: R91.8 Other nonspecific abnormal finding of lung field (principal)

== ENCOUNTER → 2017-07-04 | Outpatient (CLI) | payer OTHER ==
[~2017-07-04] MED LIST changes: -ADVIN25/60 INH; +AMLO-110 PO; -AMLO-114 PO; -ATOR-26 PO; -BALS1CAP2 PO; +CLOP1TAB5 PO; +CLZ750 PO; +CRFL PO; -FLM4 PO; +GABA-113 PO; +GLC/500 PO; -GLC500 PO; -MECL1TAB42 PO; +PANT1TAB3 PO; -PANT40TA PO; -PLV75 PO; -SENNTAB23 PO
== END | disposition home or self-care (01) ==
LOC: C.LAB 08:41
PROVIDERS: ATTEND Urology
DX: N20.0 Calculus of kidney (principal)

== ENCOUNTER 2018-11-09 11:03 | Observation (INO) ==
[2018-11-09 11:37] LABS: Basophils # (auto) 0.01 K/uL (0-0.2); Basophils % (auto) 0.1 %; Eosinophils # (auto) 0.06 K/uL (0-0.5); Eosinophils % (auto) 0.4 %; Hematocrit (blood only) 40.3 % (42-52); Hemoglobin 12.9 g/dL (14.0-18.0); Immature Granulocytes # (auto) 0.05 K/uL (0.00-0.02); Immature Granulocytes % (auto) 0.4 %; Lymphocytes # (auto) 1.62 K/uL (1.2-3.4); Lymphocytes % (auto) 12.1 %; Mean Corpuscular Volume 83.8 fL (80-100); Mean Platelet Volume 10.4 fL (7.4-10.4); Monocytes # (auto) 0.47 K/uL (0.11-0.59); Monocytes % (auto) 3.5 %; Neutrophils # (auto) 11.22 K/uL (1.4-6.5); Neutrophils % (auto) 83.5 %; Platelet Count 270 K/uL (130-400); RDW Standard Deviation 46.1 fL (36.4-46.3); Red Blood Count 4.81 M/uL (4.7-6.1); White Blood Count 13.43 K/uL (4.8-10.8)
[2018-11-09 11:46] LABS: INR 1.1 (0.9-1.1); Partial Thromboplastin Ratio 0.8; Partial Thromboplastin Time 22.7 Seconds (21.0-31.0); Prothrombin Time 11.4 Seconds (9.0-12.0)
[2018-11-09 11:56] LABS: Alanine Aminotransferase 15 U/L (12-78); Albumin Level 3.6 gm/dl (3.4-5.0); Aspartate Aminotransferase 11 U/L (15-37); BUN Creatinine Ratio 20.4 (10-20); Blood Urea Nitrogen 22 mg/dl (7-18); Calcium 8.9 mg/dl (8.5-10.1); Carbon Dioxide 31 mmol/L (21-32); Chloride 103 mmol/L (98-107); Creatinine Clr Calc Pharmacy 63.4 ml/min; Est GFR (African American) 82.6; Est GFR (Non-African American) 71.3; Glucose 94 mg/dl (70-99); Potassium 4.2 mmol/L (3.5-5.1); Sodium 139 mmol/L (136-145)
[2018-11-09 12:00] LABS: Albumin Globulin Ratio 0.9 (0.9-2); Alkaline Phosphatase 86 U/L (45-117); Bilirubin,Total 0.7 mg/dl (0.2-1); Globulin 3.9 gm/dl (2.5-4.0); Total Protein 7.5 gm/dl (6.4-8.2); Troponin I < 0.015 ng/ml (0-0.045)
--- NOTE | 2018-11-09 12:22 | XRay Report ---
SINGLE VIEW CHEST CLINICAL HISTORY: Atypical chest pain. FINDINGS: An AP, portable, upright chest radiograph is compared to study dated 05/24/2016 and correlat ed with chest CT dated 03/15/2017. The examination is degraded by portable technique and patient rota tion. The heart is enlarged and there is atherosclerotic calcification of the thoracic aorta. The pu lmonary vasculature is noncongested. Emphysema and chronic interstitial thickening are similar to pre vious. No airspace consolidation or pleural effusion is identified. There is bibasilar scarring/atele ctasis. No pneumothorax is seen. The skeletal structures are osteopenic. There are healed left-sided rib fractures. IMPRESSION: Cardiomegaly and emphysema with no acute cardiopulmonary abnormality. Electronically signed by: Sammy Leal M.D. 11/09/2018 12:20 PM
[2018-11-09 13:52] LABS: Magnesium 2.3 mg/dl (1.8-2.4); Phosphorus 3.2 mg/dl (2.5-4.9)
--- NOTE | 2018-11-09 14:07 | Emergency Department Note ---
Entered by Yadira Steven acting as a scribe for History of Present Illness General Chief complaint: Chest Pain Stated complaint: chest pain Time Seen by Provider: 11/09/18 12:43 Source: patient Mode of arrival: ambulatory Limitations: no limitations History of Present Illness Onset (ago): hour(s) 7 Location: chest Radiation: non-radiation Pain Consistency: + constant Maximum Pain Intensity: 3 Current Pain Intensity: 3 Relieved By: + medication (Nitro) Exacerbated By: + none Associated symptoms: + other (+dizziness); no nausea/vomiting and no shortness of breath Treatments prior to arrival: other (Nitro) The patient is a 68 year old male who presents to the ED with complaints of chest pain. He is accompanied by several family members. He was at his doctors office this morning for a BP recheck with a nurse where he produced an abnormal EKG after complaining of chest pain, and was sent here to the ED via EMS. He rates his pain as a 3/10 in severity and states it started at 0500 this morning. He denies any shortness of breath, nausea or vomiting. He did feel dizzy earlier. He was given Nitro in the field which has provided good relief. The patient had a colonoscopy on November 01 and anesthesiology had concerns about his heart rate at that time, and the patient then followed with Dr. Ramirez of Cardiology. His family states he was diagnosed with atrial fibrillation last week after seeing Dr. Ramirez. He was not placed on medication but does take Plavix. Home Medications Home Medications Medication Instructions Recorded Confirmed Type clopidogrel 75 mg PO QAM 09/06/18 11/09/18 History albuterol sulfate HFA 90 2 puff INHALATION Q6H PRN #8 gm 10/10/18 11/09/18 Rx mcg/actuation aerosol inhaler fluticasone 250 mcg-salmeterol 50 1 inh INHALATION QAM #14 ea 10/10/18 11/09/18 Rx mcg/dose blistr powdr for inhalation gabapentin 600 mg tablet 600 mg PO TID #90 tab 10/10/18 11/09/18 Rx ipratropium 20 mcg-albuterol 100 1 puff INHALATION QID PRN #4 gm 10/10/18 11/09/18 Rx mcg/actuation mist for inhalation metformin 500 mg tablet 500 mg PO BID 90 Days #180 tab 10/10/18 11/09/18 Rx pantoprazole 40 mg tablet,delayed 40 mg PO BID tab 10/10/18 11/09/18 History release sucralfate 1 gram tablet 1 gm PO BID #60 tab 10/10/18 11/09/18 Rx amlodipine 10 mg PO QAM 10/23/18 11/09/18 History atorvastatin 20 mg PO QAM 10/23/18 11/09/18 History meclizine 25 mg PO TID PRN 10/23/18 11/09/18 History sennosides [senna] 8.6 mg PO BID PRN 10/23/18 11/09/18 History tamsulosin 0.4 mg PO HS 10/23/18 11/09/18 History balsalazide 2,250 mg PO TID #270 cap 11/01/18 11/09/18 Rx prednisone 10 mg PO DAILY #126 tab 11/01/18 11/09/18 Rx Allergies Allergy/AdvReac Type Severity Reaction Status Date / Time Cipro Allergy Severe hives Unverified 04/28/17 10:01 azithromycin Allergy Intermediate Hives Verified 11/09/18 13:09 ciprofloxacin Allergy Intermediate hives Verified 11/09/18 13:09 mivacurium Allergy Intermediate HIVES Verified 11/09/18 13:09 Past Med/Surg History Medical History Repeated falls (Acute) Pulmonary nodules (Acute) Peripheral vascular disease (Acute) Numbness in feet (Acute) Lumbar radiculopathy (Acute) Internal hemorrhoids (Acute) Inguinal hernia (Acute) Hiatal hernia (Acute) Hearing loss (Acute) Generalized osteoarthritis of multiple sites (Acute) Essential hypertension (Acute) Diverticulosis of colon (Acute) Disc degeneration, lumbar (Acute) Diabetic neuropathy (Acute) Chronic sinusitis (Acute) Chronic obstructive pulmonary disease (Acute) Chronic cerebral ischemia (Acute) Benign prostatic hyperplasia with lower urinary tract symptoms (Acute) Anemia (Acute) AAA (abdominal aortic aneurysm) hx of Diabetes mellitus, type 2 GERD (gastroesophageal reflux disease) Hyperlipidemia Kidney stones On anticoagulant therapy plavix SOB (shortness of breath) on exertion Ulcerative colitis Surgical History History of AAA (abdominal aortic aneurysm) repair 2013 @ [facility] [place], reason for plavix History of cholecystectomy History of colonoscopy History of inguinal hernia repair History of sinus surgery History of tooth extraction all teeth removed Family History Brother Family history of diabetes mellitus Sister Family history of diabetes mellitus Breast cancer Family/Other Family history of diabetes mellitus nieces/nephews Father Lung cancer Other No family history of adverse response to anesthesia Social History Preferred Language: Kyr[place] Communication Ability: Effective Apartment Hotel Manager Required: No Beliefs That Will Affect Care: None Current Living Situation: Spouse Other Information That Helps Us Care for You: No Feels Safe at Home: Yes Safety Concerns: Feels Safe At This Time Smoking Status: Former smoker Do You Dip or Chew Tobacco: No Second Hand Exposure: No Hx Alcohol Use: No Hx Substance Use: No Review of Systems See HPI for pertinent positives & negatives. and A total of 10 systems reviewed and were otherwise negative Physical Exam Vital Signs Vital Signs - 24 hr 11/09/18 11:08 11/09/18 11:12 11/09/18 11:16 Temperature 37.2 C Temperature Source Oral Sepsis Recent Fever Within 48 Hours No Sepsis New/Unexplained Change in Mental Status No Sepsis Action Taken by Nursing No Action Required Pulse Rate 94 H 90 Pulse Rate [Left Finger] Pulse Rate from SpO2 Sensor 79 Respiratory Rate 19 24 Blood Pressure 115/73 115/73 Blood Pressure [Left Arm] Blood Pressure Mean 87 87 Blood Pressure Mean [Left Arm] Pulse Oximetry 90 91 91 Oxygen Delivery Method Room Air Room Air 11/09/18 11:21 11/09/18 11:30 11/09/18 12:00 Temperature Temperature Source Sepsis Recent Fever Within 48 Hours Sepsis New/Unexplained Change in Mental Status Sepsis Action Taken by Nursing Pulse Rate 89 99 H Pulse Rate [Left Finger] Pulse Rate from SpO2 Sensor 83 100 H Respiratory Rate 22 30 H Blood Pressure 121/72 136/86 Blood Pressure [Left Arm] Blood Pressure Mean 88 102 Blood Pressure Mean [Left Arm] Pulse Oximetry 94 94 96 Oxygen Delivery Method Room Air 11/09/18 12:24 11/09/18 12:31 11/09/18 12:37 Temperature Temperature Source Sepsis Recent Fever Within 48 Hours Sepsis New/Unexplained Change in Mental Status Sepsis Action Taken by Nursing Pulse Rate 106 H 90 104 H Pulse Rate [Left Finger] Pulse Rate from SpO2 Sensor 93 H 91 H 91 H Respiratory Rate 18 23 21 Blood Pressure 136/86 139/99 124/88 Blood Pressure [Left Arm] Blood Pressure Mean 102 112 100 Blood Pressure Mean [Left Arm] Pulse Oximetry 96 96 96 Oxygen Delivery Method 11/09/18 13:00 11/09/18 13:30 11/09/18 13:48 Temperature Temperature Source Sepsis Recent Fever Within 48 Hours Sepsis New/Unexplained Change in Mental Status Sepsis Action Taken by Nursing Pulse Rate 110 H 108 H Pulse Rate [Left Finger] 113 H Pulse Rate from SpO2 Sensor 89 98 H Respiratory Rate 15 37 H 16 Blood Pressure 139/92 134/93 Blood Pressure [Left Arm] 134/93 Blood Pressure Mean 107 106 Blood Pressure Mean [Left Arm] 106 Pulse Oximetry 94 95 97 Oxygen Delivery Method 11/09/18 14:14 Temperature Temperature Source Sepsis Recent Fever Within 48 Hours Sepsis New/Unexplained Change in Mental Status Sepsis Action Taken by Nursing Pulse Rate 111 H Pulse Rate [Left Finger] Pulse Rate from SpO2 Sensor 106 H Respiratory Rate 23 Blood Pressure 135/97 Blood Pressure [Left Arm] Blood Pressure Mean 109 Blood Pressure Mean [Left Arm] Pulse Oximetry 95 Oxygen Delivery Method GENERAL: Awake, alert, well-appearing, in no distress HENT: Normocephalic, atraumatic. Oropharynx with dry mucous membranes and otherwise unremarkable. EYES: Normal conjunctiva. Sclera non-icteric. NECK: Supple. No nuchal rigidity. FROM. No JVD. RESPIRATORY: CTAB. CARDIAC: Regular rate, irregular rhythm. Extremities warm and well perfused. Pulses equal. ABDOMEN: Soft, non-distended. No tenderness to palpation. No rebound or guarding. No masses. RECTAL: Deferred. MUSCULOSKELETAL: Chest examination reveals no tenderness. The back is symmetrical on inspection without obvious abnormality. There is no CVA tenderness to palpation. No joint edema. LOWER EXTREMITIES: Calves are equal size bilaterally and non-tender. No edema. No discoloration. NEURO: Normal sensorium. No sensory or motor deficits noted. SKIN: No rash or jaundice noted. Course 1332: The patient was evaluated in room A4A and a complete history and physical were performed. 1403: I discussed the patients case with aSmmy Roldan PA-C, [facility]. The patient will be further evaluated. 1420: I reevaluated the patient. I discussed my recommendation he remain in the hospital for further evaluation and management and he verbalized complete understanding and management. Consultations Consultation #1: I discussed the patients case with Sammy Roldan PA-C, [facility] Hospitalist. The patient will be further evaluated. Time: 14:03 Administered Medications Gabapentin (Neurontin) 600 mg PO TID MARITZA Stop: 12/09/18 20:59 Last Admin: 11/09/18 21:15 Dose: 600 mg Documented by: [id number] Heparin Sodium/Dextrose (Heparin Sodium/Dextrose) 25,000 units in 500 mls @ 27 mls/hr IV .[id number] MARITZA; Protocol Stop: 12/09/18 17:59 Last Titration: 11/10/18 01:47 Dose: 1,350 units/hr, 27 mls/hr Documented by: [id number] Cosigned by: [id number] Titration: 11/09/18 19:20 Dose: 1,200 units/hr, 24 mls/hr Documented by: [id number] Cosigned by: [id number] Admin: 11/09/18 18:40 Dose: 1,200 units/hr, 24 mls/hr Documented by: [id number] Cosigned by: [id number] Insulin Aspart (Novolog Flexpen) 0 units SC ACHS MARITZA Stop: 12/09/18 16:59 Last Admin: 11/09/18 21:17 Dose: 1 units Documented by: [id number] Cosigned by: [id number] Admin: 11/09/18 17:42 Dose: Not Given Documented by: [id number] Cosigned by: [id number] Metoprolol Tartrate (Lopressor) 25 mg PO BID MARITZA Stop: 12/09/18 20:59 Last Admin: 11/09/18 21:16 Dose: 25 mg Documented by: [id number] Miscellaneous (Order Awaiting Action) 1 ea N/A QS MARITZA Stop: 12/10/18 00:00 Last Admin: 11/10/18 00:09 Dose: Not Given Documented by: [id number] Pantoprazole Sodium (Protonix) 40 mg PO BID MARITZA Stop: 12/09/18 20:59 Last Admin: 11/09/18 21:16 Dose: 40 mg Documented by: [id number] Sucralfate (Carafate Tab) 1 gm PO BID MARITZA Stop: 12/09/18 20:59 Last Admin: 11/09/18 21:16 Dose: 1 gm Documented by: [id number] Tamsulosin HCl (Flomax) 0.4 mg PO HS MARITZA Stop: 12/09/18 20:59 Last Admin: 11/09/18 21:16 Dose: 0.4 mg Documented by: [id number] Discontinued Medications Heparin Sodium (Porcine) 3,000 (units/ Syringe) 3 mls @ 1 mls/min IV ONE ONE Stop: 11/10/18 01:50 Last Admin: 11/10/18 01:57 Dose: 1 mls/min Documented by: [id number] Cosigned by: [id number] Medical Decision Making Differential Diagnosis Differential diagnoses includes but is not limited to acute coronary syndrome, myocardial infarction, pericarditis, pulmonary embolus, aortic dissection, pneumonia, pneumothorax, musculoskeletal, shingles, esophageal. Medical Records Attestation: I reviewed the patient's medical records. Home Medications Current Medication List: was personally reviewed by me Laboratory Data Attestation: I reviewed the patient's lab results. Result diagrams: 11/09/18 10:57 11/09/18 10:57 Lab Results 11/09/18 11/09/18 11/09/18 Range/Units 10:57 10:57 10:57 WBC 13.43 H (4.8-10.8) K/uL RBC 4.81 (4.7-6.1) M/uL Hgb 12.9 L (14.0-18.0) g/dL Hct 40.3 L (42-52) % MCV 83.8 (80-100) fL MCH 26.8 (25-34) pg MCHC 32.0 (32-36) g/dL RDW Std Deviation 46.1 (36.4-46.3) fL RDW Coeff of Kayy 15.0 H (11.5-14.5) % Plt Count 270 (130-400) K/uL MPV 10.4 (7.4-10.4) fL Immature Gran % (Auto) 0.4 % Neut % (Auto) 83.5 % Lymph % (Auto) 12.1 % [place] % (Auto) 3.5 % Eos % (Auto) 0.4 % Baso % (Auto) 0.1 % Immature Gran # (Auto) 0.05 H (0.00-0.02) K/uL Neut # (Auto) 11.22 H (1.4-6.5) K/uL Lymph # (Auto) 1.62 (1.2-3.4) K/uL [place] # (Auto) 0.47 (0.11-0.59) K/uL Eos # (Auto) 0.06 (0-0.5) K/uL Baso # (Auto) 0.01 (0-0.2) K/uL PT 11.4 (9.0-12.0) Seconds INR 1.1 (0.9-1.1) APTT 22.7 (21.0-31.0) Seconds PTT Ratio 0.8 Sodium 139 (136-145) mmol/L Potassium 4.2 (3.5-5.1) mmol/L Chloride 103 (98-107) mmol/L Carbon Dioxide 31 (21-32) mmol/L Anion Gap 5.0 (3-11) BUN 22 H (7-18) mg/dl Creatinine 1.06 (0.6-1.4) mg/dl Est Cr Clr Drug Dosing 63.4 ml/min Est GFR ( Amer) 82.6 Est GFR (Non-Af Amer) 71.3 BUN/Creatinine Ratio 20.4 H (10-20) Glucose 94 (70-99) mg/dl Calcium 8.9 (8.5-10.1) mg/dl Phosphorus (2.5-4.9) mg/dl Magnesium (1.8-2.4) mg/dl Total Bilirubin 0.7 (0.2-1) mg/dl AST 11 L (15-37) U/L ALT 15 (12-78) U/L Alkaline Phosphatase 86 (45-117) U/L POC Troponin I (0-0.045) ng/ml Troponin I < 0.015 (0-0.045) ng/ml Total Protein 7.5 (6.4-8.2) gm/dl Albumin 3.6 (3.4-5.0) gm/dl Globulin 3.9 (2.5-4.0) gm/dl Albumin/Globulin Ratio 0.9 (0.9-2) Hepatitis C Ab Screen (Neg) 11/09/18 11/09/18 11/09/18 Range/Units 10:57 10:57 11:16 WBC (4.8-10.8) K/uL RBC (4.7-6.1) M/uL Hgb (14.0-18.0) g/dL Hct (42-52) % MCV (80-100) fL MCH (25-34) pg MCHC (32-36) g/dL RDW Std Deviation (36.4-46.3) fL RDW Coeff of Kayy (11.5-14.5) % Plt Count (130-400) K/uL MPV (7.4-10.4) fL Immature Gran % (Auto) % Neut % (Auto) % Lymph % (Auto) % [place] % (Auto) % Eos % (Auto) % Baso % (Auto) % Immature Gran # (Auto) (0.00-0.02) K/uL Neut # (Auto) (1.4-6.5) K/uL Lymph # (Auto) (1.2-3.4) K/uL [place] # (Auto) (0.11-0.59) K/uL Eos # (Auto) (0-0.5) K/uL Baso # (Auto) (0-0.2) K/uL PT (9.0-12.0) Seconds INR (0.9-1.1) APTT (21.0-31.0) Seconds PTT Ratio Sodium (136-145) mmol/L Potassium (3.5-5.1) mmol/L Chloride (98-107) mmol/L Carbon Dioxide (21-32) mmol/L Anion Gap (3-11) BUN (7-18) mg/dl Creatinine (0.6-1.4) mg/dl Est Cr Clr Drug Dosing ml/min Est GFR ( Amer) Est GFR (Non-Af Amer) BUN/Creatinine Ratio (10-20) Glucose (70-99) mg/dl Calcium (8.5-10.1) mg/dl Phosphorus 3.2 (2.5-4.9) mg/dl Magnesium 2.3 (1.8-2.4) mg/dl Total Bilirubin (0.2-1) mg/dl AST (15-37) U/L ALT (12-78) U/L Alkaline Phosphatase (45-117) U/L POC Troponin I < 0.03 (0-0.045) ng/ml Troponin I (0-0.045) ng/ml Total Protein (6.4-8.2) gm/dl Albumin (3.4-5.0) gm/dl Globulin (2.5-4.0) gm/dl Albumin/Globulin Ratio (0.9-2) Hepatitis C Ab Screen Neg (Neg) Imaging Data Radiologist's Impression: Radiology results as stated below per my review and the radiologist's interpretation: SINGLE VIEW CHEST CLINICAL HISTORY: Atypical chest pain. FINDINGS: An AP, portable, upright chest radiograph is compared to study dated 05/24/2016 and correlated with chest CT dated 03/15/2017. The examination is degraded by portable technique and patient rotation. The heart is enlarged and there is atherosclerotic calcification of the thoracic aorta. The pulmonary vasculature is noncongested. Emphysema and chronic interstitial thickening are similar to previous. No airspace consolidation or pleural effusion is identified. There is bibasilar scarring/atelectasis. No pneumothorax is seen. The skeletal structures are osteopenic. There are healed left-sided rib fractures. IMPRESSION: Cardiomegaly and emphysema with no acute cardiopulmonary abnormality. Electronically signed by: Sammy Leal M.D. 11/09/2018 12:20 PM ECG Data Attestation: I personally reviewed and interpreted this ECG as follows: Indication: chest pain Rate (beats per minute): 94 Rhythm: atrial fibrillation Findings: + other (LVH, QRS is 86) and + nonspecific-ST abn; no acute ischemic change Comparison ECG Date: from (11/01/2018) Change: no significant change Blood Pressure Blood Pressure Findings: Normal blood pressure Blood Pressure Disposition: did not require urgent referral MDM Narrative The patient is a pleasant 68-year-old gentleman with a past medical history of COPD, HTN, HLD, recent diagnosis of A. fib already on Plavix who presents emergency department with episode of chest pain that began at 5 AM which he told his PCP about on his scheduled blood pressure check visit today per HPI. Patient was subsequently given aspirin and nitro with resolution of pain per hpi. On arrival the patient is in NAD, AFVSS. EKG demonstrates Afib without overt acute ischemia and similar to prior. CXR negative for acute process. WBC 13.4, nonspecific and in the setting of being on prednisone. H/H 12.9/40.3 slightly d ecreased from August. Platelets wnl. Chemistry without acidosis. Troponin negative. Patient continued to remain asymptomatic in the ED. Heart score 7, high risk. Reasonable to admit the patient for further cardiac evaluation. Case d/w Sammy Roldan, [facility] [place] PAC, who will evaluate the patient for admission. Impression & Plan Substernal chest pain, Atrial fibrillation Discharge Plan Visit Data *Final* Discharge Date/Time: 11/09/18 15:49 Chief Complaint: Chest Pain Stated Complaint: chest pain ED Provider: Jay Jay Correia Discharge Problem: Substernal chest pain, Atrial fibrillation Patient Disposition: Admitted As Inpatient Discharge Instructions Interventions: ED Discharge Assessment Last Done: 11/09/18 15:49 The scribe's documentation has been prepared under my direction and personally reviewed by me in its entirety. I confirm that the note above accurately reflects all work, treatment, procedures, and medical decision making performed by me.
--- NOTE | 2018-11-09 15:14 | History & Physical Report ---
Date of Service November 09, 2018 Assessment & Plan (1) Atrial fibrillation: New onset at the beginning of this month, has been to see Dr. Arroyo, will consult Admit tele obs - prn metoprolol and start metoprolol tartrate po bid - Heparin gtt - patient was to start anticoagulation this week. It was delayed due to ulcerative colitis ulcerations. Will need to monitor for blood loss, cbc am. 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: colonoscopy last week showed a polyp and hemorrhoids but did not mention any ulcerations Patient has a history of some rectal bleeding and did mention some blood on toilet paper after he goes to the bathroom Will cautiously start heparin gtt and monitor h&h Continue 10 mg po prednisone, unclear where he is in the taper Continue balsalazide (4) Essential hypertension: continue home amlodipine, initiate metoprolol as above (5) Diabetic neuropathy: continue gabapentin (6) Chronic obstructive pulmonary disease: Continue home inhalers (7) Diabetes mellitus type II, controlled: hold home metformin, ss, bsgs ac & hs (8) Hyperlipidemia: continue atorvastatin (9) Avascular necrosis: new finding on prostate CT 10/30 Pain management, follow up outpatient (10) DVT prophylaxis: heparin gtt History of Present Illness Mr. Bailey presents for chest pain. Pain started at 0500. He went for a blood pressure check at his pcp's office and told them he was having left chest pain with radiation to his left arm. They performed an EKG which showed A. fib and sent him to the ED. He was recently diagnosed with A.fib after a colonoscopy at the beginning of the month. He is no longer having chest pain, it was relieved with ASA and nitro. He is having tenderness in his right upper quadrant that has been ongoing. On his labwork he has leukocytosis but he denies any cough or other feelings of systemic illness other than this ongoing abdominal pain. 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, never smoker, no alcohol Primary Care Provider: Lupe Weinstein MD Allergies Allergy/AdvReac Type Severity Reaction Status Date / Time Cipro Allergy Severe hives Unverified 04/28/17 10:01 azithromycin Allergy Intermediate Hives Verified 11/09/18 13:09 ciprofloxacin Allergy Intermediate hives Verified 11/09/18 13:09 mivacurium Allergy Intermediate HIVES Verified 11/09/18 13:09 Home Medications Home Medications Medication Instructions Recorded Confirmed Type clopidogrel 75 mg PO QAM 09/06/18 11/09/18 History albuterol sulfate HFA 90 2 puff INHALATION Q6H PRN #8 gm 10/10/18 11/09/18 Rx mcg/actuation aerosol inhaler fluticasone 250 mcg-salmeterol 50 1 inh INHALATION QAM #14 ea 10/10/18 11/09/18 Rx mcg/dose blistr powdr for inhalation gabapentin 600 mg tablet 600 mg PO TID #90 tab 10/10/18 11/09/18 Rx ipratropium 20 mcg-albuterol 100 1 puff INHALATION QID PRN #4 gm 10/10/18 11/09/18 Rx mcg/actuation mist for inhalation metformin 500 mg tablet 500 mg PO BID 90 Days #180 tab 10/10/18 11/09/18 Rx pantoprazole 40 mg tablet,delayed 40 mg PO BID tab 10/10/18 11/09/18 History release sucralfate 1 gram tablet 1 gm PO BID #60 tab 10/10/18 11/09/18 Rx amlodipine 10 mg PO QAM 10/23/18 11/09/18 History atorvastatin 20 mg PO QAM 10/23/18 11/09/18 History meclizine 25 mg PO TID PRN 10/23/18 11/09/18 History sennosides [senna] 8.6 mg PO BID PRN 10/23/18 11/09/18 History tamsulosin 0.4 mg PO HS 10/23/18 11/09/18 History balsalazide 2,250 mg PO TID #270 cap 11/01/18 11/09/18 Rx prednisone 10 mg PO DAILY #126 tab 11/01/18 11/09/18 Rx Past Med/Surg History Medical History Repeated falls (Acute) Pulmonary nodules (Acute) Peripheral vascular disease (Acute) Numbness in feet (Acute) Lumbar radiculopathy (Acute) Internal hemorrhoids (Acute) Inguinal hernia (Acute) Hiatal hernia (Acute) Hearing loss (Acute) Generalized osteoarthritis of multiple sites (Acute) Essential hypertension (Acute) Diverticulosis of colon (Acute) Disc degeneration, lumbar (Acute) Diabetic neuropathy (Acute) Chronic sinusitis (Acute) Chronic obstructive pulmonary disease (Acute) Chronic cerebral ischemia (Acute) Benign prostatic hyperplasia with lower urinary tract symptoms (Acute) Anemia (Acute) AAA (abdominal aortic aneurysm) hx of Diabetes mellitus, type 2 GERD (gastroesophageal reflux disease) Hyperlipidemia Kidney stones On anticoagulant therapy plavix SOB (shortness of breath) on exertion Ulcerative colitis Surgical History History of AAA (abdominal aortic aneurysm) repair 2013 @ [facility] [place], reason for plavix History of cholecystectomy History of colonoscopy History of inguinal hernia repair History of sinus surgery History of tooth extraction all teeth removed Family History Brother Family history of diabetes mellitus Sister Family history of diabetes mellitus Breast cancer Family/Other Family history of diabetes mellitus nieces/nephews Father Lung cancer Other No family history of adverse response to anesthesia Social History Preferred Language: Yoruba Communication Ability: Effective Record Searcher Required: No Beliefs That Will Affect Care: None Current Living Situation: Spouse Other Information That Helps Us Care for You: No Feels Safe at Home: Yes Safety Concerns: Feels Safe At This Time Smoking Status: Former smoker Do You Dip or Chew Tobacco: No Second Hand Exposure: No Hx Alcohol Use: No Hx Substance Use: No Review of Systems Review of Systems: All systems reviewed & are unremarkable except as noted in HPI & below Physical Exam Physical Exam: General: no distress Eyes: normal inspection, PERLL Respiratory: chest non tender, clear to auscultation, normal breath sounds, no respiratory distress, no accessory muscle use Cardiac: irregular rate and rhythm, no rub or gallop, no murmur, no edema, no jvd GI/: active bowel sounds, no abd pain or tenderness, soft, non distended Extremities: normal range of motion, normal strength, non tender Neuro:oriented x 3, moves all extremities Psych: alert, normal mood and affect Skin: normal color, dry Results & Data Vital Signs (Past 12 Hours) Vital Signs Temp Pulse Pulse Resp BP BP Pulse Ox 11/09/18 14:14 111 H 23 135/97 95 11/09/18 13:48 113 H 16 134/93 97 11/09/18 13:30 108 H 37 H 134/93 95 11/09/18 13:00 110 H 15 139/92 94 11/09/18 12:37 104 H 21 124/88 96 11/09/18 12:31 90 23 139/99 96 11/09/18 12:24 106 H 18 136/86 96 11/09/18 12:00 99 H 30 H 136/86 96 11/09/18 11:30 89 22 121/72 94 11/09/18 11:21 94 11/09/18 11:16 91 11/09/18 11:12 37.2 C 90 24 115/73 91 11/09/18 11:08 94 H 19 115/73 90 Code Status & VTE Plan Code Status full code Supervising Physician Co-Signing Physician Notes LOANS CONSULTANT Physician Supervision Note: I discussed with Bharti Mcclure NP and agree with findings and plan as documented in the note. Any exceptions or clarifications are listed here: None Patient independently seen and examined the ER he presents really with atrial fibrillation which began around November 01 surrounding a colonoscopy is here with rapid ventricular response. He is a diabetic and hypertensive person with baseline history of COPD on home inhalers. Biggest issue really remains around some chest and abdominal pain associate with his A. fib RVR. We will employ rate controlling agents will fully anticoagulated with heparin we will get an echocardiogram and involve cardiology decisions of the next steps the family did mention that he was supposed to have possible stress test. Documented By: Philpi Lizama PG Care Time/CCT Total # of Minutes Spent Total Time Spent with Patient: Total time spent is greater than 50% in coordination of care (as documented) at patient's floor/unit and/or counseling patient:
[2018-11-09] MEDS ORDERED: ONDANSETRON INJ 2 MG/ML 2 ML VIAL IV PRN (16:39)
[2018-11-09] MEDS ORDERED: DEXTROSE 50% 50 ML SYRINGE IV PRN (16:39)
[2018-11-09] MEDS ORDERED: ALBUTEROL HFA 8 GM INHALER INH PRN (16:39)
[2018-11-09] MEDS ORDERED: METOPROLOL TARTRATE 1 MG/ML VIAL IV PRN (16:39)
[2018-11-09] MEDS ORDERED: GLUCAGON FOR INJ 1 MG VIAL SQ PRN (16:39)
[2018-11-09] MEDS ORDERED: HEPARIN SODIUM/DEXTROSE 25,000 UNITS/500 ML BAG IV SCH (16:39)
[2018-11-09] MEDS ORDERED: ACETAMINOPHEN 325 MG TAB PO PRN (16:39)
[2018-11-09] MEDS ORDERED: NITROGLYCERIN SL 0.4 MG/TAB TAB SL PRN (16:39)
[2018-11-09] MEDS ORDERED: CARBOHYDRATES FOR HYPOGLYCEMIA PO PRN (16:39)
[2018-11-09] MEDS ORDERED: SENNA 8.6 MG TAB PO PRN (16:39)
[2018-11-09] MEDS ORDERED: GLUCOSE 40% GEL 15 GM TUBE PO PRN (16:39)
[2018-11-09] MEDS ORDERED: IPRATROPIUM BROMIDE/ALBUTEROL respimat INH INH PRN (16:39)
[2018-11-09] MEDS ORDERED: POLYETHYLENE (MIRALAX) 17 GM PACK PO PRN (16:39)
[2018-11-09] MEDS ORDERED: GLUCOSE 10 TABS/TUBE PO PRN (16:39)
[2018-11-09] MEDS ORDERED: MECLIZINE HCL 25 MG TAB PO PRN (17:06)
[2018-11-09] MEDS ORDERED: Heparin IV Standard *NO* Bolus IV SCH (17:15)
[2018-11-09] MEDS: INSULIN ASPART 100 UNITS/ML 3 ML PEN SC SCH ×2 (17:42→21:17)
[2018-11-09] MEDS ORDERED: Heparin Adult STANDARD Wt-Based Dextrose 5% 25,000 units/500 mL IV SCH (18:00)
[2018-11-09 18:02] LABS: Alanine Aminotransferase 13 U/L (12-78); Albumin Level 3.2 gm/dl (3.4-5.0); Alkaline Phosphatase 84 U/L (45-117); Aspartate Aminotransferase 12 U/L (15-37); Bilirubin,Total 0.6 mg/dl (0.2-1); Total Protein 7.1 gm/dl (6.4-8.2); Troponin I < 0.015 ng/ml (0-0.045)
[2018-11-09] MEDS ORDERED: HEPARIN SOD 5,000 UNIT/0.5 ML VIAL SQ SCH (21:00)
[2018-11-09] MEDS ORDERED: TAMSULOSIN HCL 0.4 MG CAP PO SCH (21:00)
[2018-11-09] MEDS: GABAPENTIN 600 MG TAB PO SCH (21:15)
[2018-11-09] MEDS: SUCRALFATE 1 GM TAB PO SCH (21:16)
[2018-11-09] MEDS: METOPROLOL TARTRATE 25 MG TAB PO SCH (21:16)
[2018-11-09] MEDS: PANTOprazole 40 MG TAB PO SCH (21:16)
--- NOTE | 2018-11-09 21:27 | Ultrasound Report ---
US liver CLINICAL HISTORY: 68 years-old Male presenting with right upper quadrant pain. TECHNIQUE: Real-time grayscale and limited color Doppler ultrasound imaging of the abdomen limited to the right upper quadrant was performed. COMPARISON: CT from 01/05/2018. FINDINGS: Pancreas: Visualized portions of the pancreatic head and body normal. Liver: Normal echogenicity and echotexture. The liver measures 14.3 cm in maximal sagittal dimension. Multiple hepatic cysts noted as on prior CT. Main portal vein patent with normal directional flow. Biliary: No intrahepatic biliary ductal dilatation. Common bile duct measures up to 6 mm in diameter. Top normal prominence of the extra hepatic bile duct likely a reservoir effect in the postcholecyste ctomy state. Gallbladder: Surgically absent. Right kidney: 3 mm hyperechogenic focus at the lower pole, nonspecific though possibly nonobstructive calculus. No hydronephrosis. Ascites: None. Other: None. IMPRESSION: 1. Status post cholecystectomy. 2. No biliary ductal dilatation. 3. Questionable 3 mm right renal calculus. Electronically signed by: Amauri Quarles M.D. 11/09/2018 9:25 PM
[2018-11-10 00:56] LABS: Partial Thromboplastin Ratio 1.6; Partial Thromboplastin Time 43.9 Seconds (21.0-31.0)
[2018-11-10] MEDS ORDERED: HEPARIN IV BOLUS 3,000 UNITS in SYRINGE 0 ML IV ONE (01:49)
--- NOTE | 2018-11-10 08:09 | Cardiology Consultation ---
Date of Consultation November 10, 2018 Assessment & Plan (1) Substernal chest pain: Chest pain: He had described exertional chest discomfort to me and I had intended to get a stress test, I do not see it ordered but that was my plan. Since he cannot describe it very well I cannot really tell whether it is ischemic or not. This admission he cannot describe it either, in the past it has been exertional. I think he had it for some time and his enzymes are negative. Although we could proceed to catheterization I would prefer to start with a stress test since I cannot really evaluate his symptoms. That will also give us information about his heart rate during atrial fibrillation. I will schedule that for today. (2) Atrial fibrillation: His atrial fibrillation was identified on November 01, 2018, it was at a controlled heart rate and the duration was unknown. He was in sinus rhythm several years before but the interim I do not have any data. We held off on anticoagulation due to rectal bleeding, but I had intended to start Eliquis 5 mg twice a day once he was cleared from the GI standpoint. He is already on aspirin and clopidogrel. He remains in atrial fibrillation a controlled heart rate. (3) Bleeding per rectum: Rectal bleeding: He had rectal bleeding from ulcerations, he tells me that has resolved. Was keeping us from starting anticoagulation which he obviously needs to be on. His hemoglobin is not low and I agree with anticoagulation. Heparin is reasonable for now, but I would start an oral agent once he is cleared from the cardiac standpoint. I would recommend Eliquis 5 mg twice a day. History of Present Illness Reason for Consultation: Chest pain, atrial fibrillation Attending Physician: Philip Lizama MD History of Present Illness This is a very pleasant 68-year-old gentleman who is very cooperative but is a very poor historian and quite hard of hearing. He was accompanied by his family when I saw him in the office last week who filled in some details of his history but he evidently does not tell him a lot of his symptoms. He has been having gastrointestinal bleeding (which is primarily seeing blood on his toilet tissue and some on the outside of his stool), he had a colonoscopy performed on November 01, 2018 where rectal erosions were noted. He was started on prednisone. At that evaluation however he was observed to have atrial fibrillation. This has not been known in the past, evidently his sister has it so he is aware of the abnormality but he apparently has no awareness of being in it and has not been told he has atrial fibrillation. His last electrocardiogram was several years ago and was sinus. He noted no change in his exercise ability, no palpitations, no lightheadedness or dizziness. The duration is therefore unknown. As part of my evaluation I questioned him about exertional symptoms and he told me he has exertional substernal chest pain. He gets this when he mows the lawn, etc. and when he does he goes into the house and sits down and it resolves in several minutes. He is very vague about how long he has had it, he did have a stress test several years ago which was negative for ischemia but he tells me that the symptoms have probably been present for only several months. They had never occurred at rest and do not seem to radiate. He is maintained on aspirin and clopidogrel for vascular disease including abdominal aortic aneurysm, he has not been on an anticoagulant in the past. He was instructed to remain off of platelet inhibitors and anticoagulants until Tuesday, November 06, 2018, based on his colonoscopy findings. He has not started anticoagulation however. He presents now after going to his PCP yesterday for an appointment, on the way and evidently he was having chest discomfort and electrocardiogram was done and he was sent to the emergency room. I think the electrocardiogram only showed atrial fibrillation, which was known, and I do not see any ischemic changes. It sounds as though his chest discomfort was of substantial duration and was relieved by nitroglycerin later on, however he can give me absolutely no indication of how long it lasted. He was supposed to be scheduled for stress test, but he does not know when that is and I do not see in the record. He is now pain-free and has no complaints. He does report to me that he is not having blood in his stool, perhaps the erosions have healed. Allergies Allergy/AdvReac Type Severity Reaction Status Date / Time Cipro Allergy Severe hives Unverified 04/28/17 10:01 azithromycin Allergy Intermediate Hives Verified 11/09/18 13:09 ciprofloxacin Allergy Intermediate hives Verified 11/09/18 13:09 mivacurium Allergy Intermediate HIVES Verified 11/09/18 13:09 Home Medications Home Medications Medication Instructions Recorded Confirmed Type clopidogrel 75 mg PO QAM 09/06/18 11/09/18 History albuterol sulfate HFA 90 2 puff INHALATION Q6H PRN #8 gm 10/10/18 11/09/18 Rx mcg/actuation aerosol inhaler fluticasone 250 mcg-salmeterol 50 1 inh INHALATION QAM #14 ea 10/10/18 11/09/18 Rx mcg/dose blistr powdr for inhalation gabapentin 600 mg tablet 600 mg PO TID #90 tab 10/10/18 11/09/18 Rx ipratropium 20 mcg-albuterol 100 1 puff INHALATION QID PRN #4 gm 10/10/18 11/09/18 Rx mcg/actuation mist for inhalation metformin 500 mg tablet 500 mg PO BID 90 Days #180 tab 10/10/18 11/09/18 Rx pantoprazole 40 mg tablet,delayed 40 mg PO BID tab 10/10/18 11/09/18 History release sucralfate 1 gram tablet 1 gm PO BID #60 tab 10/10/18 11/09/18 Rx amlodipine 10 mg PO QAM 10/23/18 11/09/18 History atorvastatin 20 mg PO QAM 10/23/18 11/09/18 History meclizine 25 mg PO TID PRN 10/23/18 11/09/18 History sennosides [senna] 8.6 mg PO BID PRN 10/23/18 11/09/18 History tamsulosin 0.4 mg PO HS 10/23/18 11/09/18 History balsalazide 2,250 mg PO TID #270 cap 11/01/18 11/09/18 Rx prednisone 10 mg PO DAILY #126 tab 11/01/18 11/09/18 Rx Patient History Medical History Repeated falls (Acute) Pulmonary nodules (Acute) Peripheral vascular disease (Acute) Numbness in feet (Acute) Lumbar radiculopathy (Acute) Internal hemorrhoids (Acute) Inguinal hernia (Acute) Hiatal hernia (Acute) Hearing loss (Acute) Generalized osteoarthritis of multiple sites (Acute) Essential hypertension (Acute) Diverticulosis of colon (Acute) Disc degeneration, lumbar (Acute) Diabetic neuropathy (Acute) Chronic sinusitis (Acute) Chronic obstructive pulmonary disease (Acute) Chronic cerebral ischemia (Acute) Benign prostatic hyperplasia with lower urinary tract symptoms (Acute) Anemia (Acute) AAA (abdominal aortic aneurysm) hx of Diabetes mellitus, type 2 GERD (gastroesophageal reflux disease) Hyperlipidemia Kidney stones On anticoagulant therapy plavix SOB (shortness of breath) on exertion Ulcerative colitis Surgical History History of AAA (abdominal aortic aneurysm) repair 2013 @ [facility] [place], reason for plavix History of cholecystectomy History of colonoscopy History of inguinal hernia repair History of sinus surgery History of tooth extraction all teeth removed Family History Brother Family history of diabetes mellitus Sister Family history of diabetes mellitus Breast cancer Family/Other Family history of diabetes mellitus nieces/nephews Father Lung cancer Other No family history of adverse response to anesthesia Social History Preferred Language: Nigerian Communication Ability: Effective Family Law Attorney Required: No Beliefs That Will Affect Care: None Current Living Situation: Spouse Other Information That Helps Us Care for You: No Feels Safe at Home: Yes Safety Concerns: Feels Safe At This Time Smoking Status: Former smoker Do You Dip or Chew Tobacco: No Second Hand Exposure: No Hx Alcohol Use: No Hx Substance Use: No Review of Systems Review of Systems: All systems reviewed & are unremarkable except as noted in HPI & below Physical Exam Physical Exam: Constitutional: Alert, cooperative and in no distress. HEENT: Unremarkable Neck: No jugular venous distention, carotid pulses are irregular but otherwise normal and equal bilaterally without bruits. Pulmonary: Clear to auscultation bilaterally. Cardiac: Irregular rhythm with no murmur, gallop or rub. Abdomen: Soft, nontender with normal bowel sounds. Extremities: No edema. Distal pulses intact. Neurologic: No focal findings. Gait is steady. Skin: No rash, ecchymoses or petechiae. Results & Data Vital Signs (Past 12 Hours) Vital Signs Temp Pulse Pulse Resp BP Pulse Ox 11/10/18 07:16 36.6 C 68 17 124/75 92 11/10/18 04:03 36.6 C 74 18 135/78 94 11/10/18 00:32 36.7 C 90 20 122/81 94 11/09/18 23:19 93 H Diagnostic Findings His electrocardiogram from the PCPs office was done on November 09, 2018 at 10:30 AM. This showed atrial fibrillation with a controlled heart rate and no acute changes. After coming to the emergency room he had another electrocardiogram done at 11:12 AM the same day, this showed atrial fibrillation rate of 94 bpm, LVH but no ischemic change. Telemetry: Atrial fibrillation, rate well controlled (1) Atrial fibrillation Atrial fibrillation type: unspecified Qualified Code(s): I48.91 - Unspecified atrial fibrillation
[2018-11-10 08:10] LABS: Basophils # (auto) 0.01 K/uL (0-0.2); Basophils % (auto) 0.1 %; Eosinophils # (auto) 0.12 K/uL (0-0.5); Eosinophils % (auto) 1.1 %; Hematocrit (blood only) 43.1 % (42-52); Hemoglobin 13.9 g/dL (14.0-18.0); Immature Granulocytes # (auto) 0.03 K/uL (0.00-0.02); Immature Granulocytes % (auto) 0.3 %; Lymphocytes # (auto) 3.59 K/uL (1.2-3.4); Lymphocytes % (auto) 33.7 %; Mean Corpuscular Hgb Conc 32.3 g/dL (32-36); Mean Corpuscular Volume 84.2 fL (80-100); Mean Platelet Volume 9.9 fL (7.4-10.4); Monocytes # (auto) 1.07 K/uL (0.11-0.59); Monocytes % (auto) 10.1 %; Neutrophils # (auto) 5.82 K/uL (1.4-6.5); Neutrophils % (auto) 54.7 %; Platelet Count 276 K/uL (130-400); RDW Standard Deviation 46.5 fL (36.4-46.3); Red Blood Count 5.12 M/uL (4.7-6.1); White Blood Count 10.64 K/uL (4.8-10.8)
[2018-11-10 08:29] LABS: Partial Thromboplastin Ratio 3.7
[2018-11-10 08:42] LABS: Partial Thromboplastin Time 99.7 Seconds (21.0-31.0)
[2018-11-10 08:46] LABS: BUN Creatinine Ratio 22.3 (10-20); Calcium 8.7 mg/dl (8.5-10.1); Est GFR (African American) 80.7; Est GFR (Non-African American) 69.7
[2018-11-10] MEDS: PANTOprazole 40 MG TAB PO SCH (08:48)
[2018-11-10] MEDS: GABAPENTIN 600 MG TAB PO SCH ×2 (08:49→13:34)
[2018-11-10] MEDS: SUCRALFATE 1 GM TAB PO SCH (08:49)
[2018-11-10] MEDS: METOPROLOL TARTRATE 25 MG TAB PO SCH (08:49)
[2018-11-10] MEDS ORDERED: CLOPIDOGREL BISULFATE 75 MG TAB PO SCH (09:00)
[2018-11-10] MEDS ORDERED: ATORVASTATIN 20 MG TAB PO SCH (09:00)
[2018-11-10] MEDS ORDERED: FLUTICASONE/SALMETEROL 250/50 (ADVAIR) 14 PUFF/1 INHALER INH SCH (09:00)
[2018-11-10] MEDS ORDERED: AMLODIPINE BESYLATE 5 MG TAB PO SCH (09:00)
[2018-11-10] MEDS ORDERED: predniSONE 10 MG TABLET PO SCH (09:00)
[2018-11-10] MEDS: INSULIN ASPART 100 UNITS/ML 3 ML PEN SC SCH ×2 (09:40→11:32)
[2018-11-10] MEDS ORDERED: METOPROLOL TARTRATE 25 MG TAB PO ONE (10:15)
[2018-11-10] MEDS ORDERED: APIXABAN 5 MG TABLET PO ONE (11:15)
--- NOTE | 2018-11-10 14:32 | Discharge Summary ---
Date of Service November 10, 2018 Admission HPI Per Admitting Provider Mr. Bailey presents for chest pain. Pain started at 0500. He went for a blood pressure check at his pcp's office and told them he was having left chest pain with radiation to his left arm. They performed an EKG which showed A. fib and sent him to the ED. He was recently diagnosed with A.fib after a colonoscopy at the beginning of the month. He is no longer having chest pain, it was relieved with ASA and nitro. He is having tenderness in his right upper quadrant that has been ongoing. On his labwork he has leukocytosis but he denies any cough or other feelings of systemic illness other than this ongoing abdominal pain. 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, never smoker, no alcohol Primary Care Provider: Lupe Weinstein MD Principal Diagnosis A.fib Discharge Exam Constitutional WD/WN, vitals as above Respiratory normal respiratory effort, lungs clear to auscultation Cardiovascular RRR, no murmur, no edema Gastrointestinal (Abdomen) Inspection/Auscultation: abdomen normal to inspection and normal bowel sounds; abdomen not distended Percussion/Palpation: abdomen nontender and + abdomen not soft Musculoskeletal no cyanosis or clubbing, extremities motor strength 5/5 Skin no rashes, warm and dry Neurologic moves all extremities and awake Psychiatric A+Ox3, euthymic affect Discharge Data Allergies Allergy/AdvReac Type Severity Reaction Status Date / Time Cipro Allergy Severe hives Unverified 04/28/17 10:01 azithromycin Allergy Intermediate Hives Verified 11/09/18 13:09 ciprofloxacin Allergy Intermediate hives Verified 11/09/18 13:09 mivacurium Allergy Intermediate HIVES Verified 11/09/18 13:09 Consultations 11/09/18 13:59 ED Decision to Admit Stat 11/09/18 16:39 Consult Cardiology Routine Ordered Studies 11/09/18 16:39 US liver Routine Hospital Course (1) Atrial fibrillation: New onset at the beginning of this month, has been to see Dr. Ramirez who was consulted - prn metoprolol provided and started metoprolol tartrate po bid - increased to 50 mg bid by cardiology - Heparin gtt initially and then transitioned to Eliquis. Patient was to start anticoagulation this week outpatient. It was delayed due to ulcerative colitis ulcerations. Hgb is not low. No blood on rectal exam. Patient denies any recent rectal bleeding. I did aids counselor the patient that he should call his provider right away if any further bleeding occurs - EKG in ED showed A.fib (2) Chest pain: - No current complaints of chest pain - Troponins negative, initial troponin normal - Stress echo today without evidence of ischemia. Patient had poor functional capacity and test was limited by A.fib RVR with exertion. EF 55% - discussed with Dr. Ramirez, he agrees with discharge and will follow with patient concerning heart rate (3) Ulcerative (chronic) proctitis without complications: colonoscopy 11/01 showed a polyp and hemorrhoids with ulceration and inflammation from the anus to rectum Patient has a history of some rectal bleeding due to ulcerations. No blood on rectal exam. Patient reports no recent bleeding Continue prednisone Continue balsalazide (4) Essential hypertension: continue home amlodipine, metoprolol as above (5) Diabetic neuropathy: continue gabapentin (6) Chronic obstructive pulmonary disease: Continue home inhalers (7) Diabetes mellitus type II, controlled: resume home metformin at discharge, ss inpatient, bsgs ac & hs (8) Hyperlipidemia: continue atorvastatin (9) Avascular necrosis: new finding on prostate CT 10/30 Pain management, follow up outpatient (10) Abdominal pain: On admission - no further pain today, no tenderness of abd to palpation Liver US normal - non obstructing kidney stone visualized - patient's niece reports this had been told to the patient in the past LFTs wnl (11) DVT prophylaxis: apixaban Total Time Total Time Spent Total Time Spent (In Minutes): greater than 30 minutes Discharge Plan Discharge Items Patient Disposition: Home - Self-Care Reason For Visit: CHEST PAIN Discharge Diagnosis: chest pain Discharge Goals: Decrease discomfort and Diagnostic testing Activity: Resume your previous activity Non-emergency contact: Primary Care Provider and Denture Laboratory Technician Call non-emergency contact if: you have any medication questions and your symptoms worsen Follow-up/Referrals: Eliazar Arroyo MD [Physician] - 12/11/18 4:00 pm (Please, follow up at [facility] Cardiology Office with Dr. Arroyo on TuesdayDecember 11 at 4:00 pm. *The office is located at [address] [place] [address] in [place]. If you need to change this appointment, call the office at [phone].) Lupe Weinstein MD [Primary Care Provider] - 11/16/18 10:15 am (Please, follow up with Dr. Weinstein on November 16 at 10:15 am. *If you need to change this appointment, call the office at [phone].) Diet: Heart Healthy Addtl Provider Instructions: Please follow up with your primary care provider next week as above. You will be sent home with and anticoagulant called apixaban (Eliquis). You should call your doctor right away if you fall or hit your head, if you see blood in your stool or black tarry stools, if you develop little red spots on your skin (petechiae), or if you develop excessive bruising. You may bleed more easily. Be careful and avoid injury. Use a soft toothbrush and an electric razor. Do not to take any [id number] pain medicine except Tylenol (including aspirin, ibuprofen, Motrin, Aleve, Advil, naproxen, diclofenac sodium, oral Voltaren, also not allowed to take fish oil as all these medications increase your incidence of bleeding) You can take Tylenol as needed for pain but not more than 3000 mg per day as a total dose (that is the maximum of 6 tablet, 500 mg each, divided throughout the day) , if you take more than the total of 3000 mg of Tylenol throughout the day you may damage your liver. Prescriptions: New Eliquis 5 mg Tablet 5 mg PO BID Qty: 60 RF: 0 metoprolol tartrate 50 mg Tablet 50 mg PO BID Qty: 60 RF: 0 Continued albuterol sulfate 90 mcg/actuation HFA aerosol inhaler 2 puff INHALATION Q6H PRN (Reason: Wheezing) Qty: 8 RF: 3 pantoprazole 40 mg tablet,delayed release (DR/EC) 40 mg PO BID RF: 0 sucralfate 1 gram tablet 1 gm PO BID Qty: 60 RF: 2 fluticasone propion-salmeterol [Advair Diskus] 250-50 mcg/dose blister with device 1 inh INHALATION QAM Qty: 14 RF: 5 Combivent Respimat 20-100 mcg/actuation mist 1 puff INHALATION QID PRN (Reason: COPD) Qty: 4 RF: 3 metformin 500 mg tablet 500 mg PO BID 90 Days Qty: 180 RF: 3 gabapentin 600 mg tablet 600 mg PO TID Qty: 90 RF: 5 clopidogrel 75 mg Tablet 75 mg PO QAM RF: 0 sennosides [senna] 8.6 mg tablet 8.6 mg PO BID PRN (Reason: Constipation) RF: 0 atorvastatin 20 mg tablet 20 mg PO QAM RF: 0 tamsulosin 0.4 mg capsule 0.4 mg PO HS RF: 0 meclizine 25 mg tablet 25 mg PO TID PRN (Reason: Dizziness) RF: 0 amlodipine 10 mg tablet 10 mg PO QAM RF: 0 balsalazide 750 mg capsule 2,250 mg PO TID Qty: 270 RF: 5 prednisone 10 mg tablet 10 mg PO DAILY Qty: 126 RF: 0 Stand-Alone Forms: Call Back Authorization, [facility]/Other Patient Handouts: Apixaban Oral tablet, Metoprolol Tartrate Hydrochlorothiazide Oral tablet Discharge Orders: Discharge Order (Routine); Ordered 11/10/18 Ordered By: Bharti Mcclure Admission Data Admit Date/Time: 11/09/18 15:06 Attending Provider: Philip Lizama Admit Provider: Philip Lizama Primary Care Provider: Lupe Weinstein Other Providers: Pihlip Lizama ; Eliazar Arroyo Service: Telemetry
[2018-11-10] MEDS ORDERED: APIXABAN 5 MG TABLET PO SCH (21:00)
[2018-11-10] MEDS ORDERED: METOPROLOL TARTRATE 50 MG TAB PO SCH (21:00)
== END 2018-11-10 15:47 | disposition home or self-care (01) ==
LOC: 2S 11:03 → ED 11:03 → 2S 15:49

== ENCOUNTER 2018-11-17 12:23 | Inpatient (IN) ==
[2018-11-17] MEDS ORDERED: SODIUM CHLORIDE 0.9% 1000ML 1,000 ML IV SCH (12:45)
[2018-11-17 13:00] LABS: Basophils # (auto) 0.01 K/uL (0-0.2); Basophils % (auto) 0.1 %; Eosinophils # (auto) 0.03 K/uL (0-0.5); Eosinophils % (auto) 0.2 %; Hematocrit (blood only) 39.6 % (42-52); Hemoglobin 12.7 g/dL (14.0-18.0); Immature Granulocytes # (auto) 0.06 K/uL (0.00-0.02); Immature Granulocytes % (auto) 0.4 %; Lymphocytes # (auto) 1.43 K/uL (1.2-3.4); Lymphocytes % (auto) 9.8 %; Mean Corpuscular Hgb Conc 32.1 g/dL (32-36); Mean Corpuscular Volume 85.3 fL (80-100); Mean Platelet Volume 9.8 fL (7.4-10.4); Monocytes % (auto) 5.5 %; Neutrophils # (auto) 12.25 K/uL (1.4-6.5); Platelet Count 315 K/uL (130-400); RDW Coefficient of Variation 15.6 % (11.5-14.5); RDW Standard Deviation 48.5 fL (36.4-46.3); Red Blood Count 4.64 M/uL (4.7-6.1); White Blood Count 14.58 K/uL (4.8-10.8)
[2018-11-17 13:08] LABS: INR 1.1 (0.9-1.1); Prothrombin Time 11.3 Seconds (9.0-12.0)
[2018-11-17 13:18] LABS: Albumin Level 3.3 gm/dl (3.4-5.0); BUN Creatinine Ratio 19.3 (10-20); Calcium 8.6 mg/dl (8.5-10.1); Creatinine Clr Calc Pharmacy 55.9 ml/min; Est GFR (African American) 71.1; Est GFR (Non-African American) 61.3; Potassium 4.2 mmol/L (3.5-5.1)
[2018-11-17 13:20] LABS: Albumin Globulin Ratio 0.9 (0.9-2); Bilirubin,Total 0.5 mg/dl (0.2-1); Globulin 3.5 gm/dl (2.5-4.0); Total Protein 6.8 gm/dl (6.4-8.2)
[2018-11-17] MEDS ORDERED: IOVERSOL 100ml IV PRN (13:37)
[2018-11-17 13:38] LABS: Appearance Urine Clear (Clear); Bilirubin Urine Negative (Negative); Blood Urine Negative (Negative); Color Urine Yellow; Glucose Urine UA Negative (Negative); Ketones Urine Negative (Negative); Leukocyte Esterase Urine Negative (Negative); Nitrite Urine Negative (Negative); Protein Urine Negative (Negative); Specific Gravity Urine 1.012 (1.000-1.030); Urobilinogen Urine Negative (Negative)
--- NOTE | 2018-11-17 13:58 | CT Scan Report ---
CT abd pelvis IV con only CLINICAL HISTORY: 68 years-old Male presenting with mid abd pain. TECHNIQUE: Multidetector CT of the abdomen and pelvis was performed after the administration of intra venous contrast. IV contrast: 94 mL of Optiray 320. One or more dose lowering techniques were used co nsistent with the principles of ALARA (as low as reasonably achievable), including automatic exposure control, mA or kV adjustment to individual patient size, and/or use of iterative reconstruction. COMPARISON: 01/05/2018.. CT DOSE (mGy.cm): The estimated cumulative dose is 266.93 mGy.cm. 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 Lung bases: Mild multichamber enlargement of the heart. No pericardial or pleural effusion. Emphysema . Bronchial wall thickening. Reticulation in the dependent portions of the lower lobes may imply deve loping fibrotic change. Limited tree-in-bud nodularity in the right middle lobe as on prior exam. Liver: Normal morphology. Well-defined hypodense lesions in the liver likely hepatic cysts. Patent he patic vasculature. Biliary: Mild biliary ductal prominence likely a reservoir effect in the post cholecystectomy state. Gallbladder surgically absent. Pancreas: Moderate parenchymal atrophy. Spleen: Normal. Adrenal glands: Normal. Kidneys and ureters: Several renal cysts noted. Cysts at the lower pole the left kidney may have asso ciated mural calcification. This is unchanged. No hydronephrosis. Ureters nondistended. Trace urothel ial thickening suggested, likely reflux uropathy. Bladder: Circumferential bladder wall thickening. Pelvic organs: Prostate enlargement likely secondary to benign prostatic hyperplasia. Bowel: Mild stool burden throughout normal caliber colon. The appendix is normal. No bowel obstructio n. Peritoneal cavity: No free fluid or intraperitoneal gas. Lymph nodes: No enlarged lymph nodes in the abdomen or pelvis. Vasculature: Atherosclerosis. Aortobiiliac stent graft in place within the infrarenal abdominal aorta . The stent is patent. IVC patent. Abdominal wall: Normal. Musculoskeletal: Old left rib fractures noted. IMPRESSION: 1. No acute intra-abdominal pathology. 2. Chronic bladder outlet obstruction secondary to prostatomegaly. 3. Aortobiiliac stent graft in place. Patent stent. 4. Mild cardiomegaly. 5. Emphysema with chronic changes at the lung bases. Electronically signed by: Amauri Quarles M.D. 11/17/2018 1:57 PM
--- NOTE | 2018-11-17 15:05 | History & Physical Report ---
Date of Service November 17, 2018 Assessment & Plan (1) GI bleed: Likely related to medications Pt with UC and recent bleeding, hx of plavix, aspirin 81mg, and eliquis use with aspirin and eliquis being new medications recently--holding all now Clears with IVF Hb is stable, repeat in AM VSS, monitor on tele in case of sudden drop in Hb Protonix BID push CTAP as noted CHADS VASC is 3, possible pt could tolerate only eliquis without aspirin use?? Follows with Dr. Meeks and Dr. Arroyo, will c/s both for plans to move forward with care given above (2) Prostate tumor: Pt will need a bx and therefore need to be off of anticoagulation for this If he will be off of anticoagulation given bleeding, possible to arrange for bx during this window? Follows with Dr. Jesus, will not c/s now but should be advised of status for bx planning purposes once anticoagulation plan is knowns (3) Atrial fibrillation: continue home meds other than eliquis (4) Hyperlipidemia: Holding for now (5) Diabetes mellitus type II, controlled: Holding metformin s/p IV contrast SSI PRN (6) Abdominal aortic aneurysm: Plavix use given stent Has been held recently for c-scope Holding now given above (7) Chronic obstructive pulmonary disease: continue home meds (8) Benign prostatic hyperplasia with lower urinary tract symptoms: continue home meds (9) HTN (hypertension): continue home meds (10) Neuropathy: continue gabapentin (11) DVT prophylaxis: SCDs given above History of Present Illness Primary Care Provider: Lupe Weinstein MD 68 y/o M who was sent to the ED by Dr. Meeks after pt called with rectal bleeding. Pt has hx of UC. He had a c-scope on 11/01 that showed UC and was put on prednisone and balsalazide. At this time, it was noted that pt was in afib, but due to bleeding and UC he was not started on any anticoagulation. There was a plan to do so once his GI status was more stable. In the meantime, pt was admitted on 11/09 with chest pain. He was seen by Dr. Arroyo and was started on eliquis. Notes from Dr. Arroyo state that pt had been on aspirin prior, but I do not see that in his admission med list from 11/09 or on a PCP visit med list from 10/10. He had taken it PRN for some chest pain prior, but not regularly. His family tells me that the aspirin was started during his recent admission. Pt has been on plavix for the last few years s/p aortoiliac stent for AAA repair. Per d/c notes, it appears there was still hesitation regarding anticoagulation due to UC status, but as pt had no pain or bleeding, he was felt to be safe to start anticoagulation in the setting of afib. Pt was d/c'd on 11/10. Family agrees with this as well. He was advised to call PCP or cardiology if he had bleeding Pt and family now report that he first noted BRBPR about 2 days s/p d/c. This has continued intermittently since that time. It is usually dark red blood or tarry stools. Pt notes it is clots mixed with some stool. He has no pain with defecation. No abd pain, n/v, hematemesis. He has been eating without issue. No blood in his urine or other bleeding/bruising. Pt has also been working with Dr. Jesus for a possible prostate cancer. He needs to have a bx, however this cannot be done while he is on anticoagulation. Family states there is no clear plan on how to approach this given afib, UC, anticoagulation issues and they are frustrated that his bx has not been done yet given they were told it was "50% chance" that this mass is cancer. Mass was noted on MRI on 10/30. Allergies Allergy/AdvReac Type Severity Reaction Status Date / Time Cipro Allergy Severe hives Unverified 04/28/17 10:01 azithromycin Allergy Intermediate Hives Verified 11/17/18 13:12 ciprofloxacin Allergy Intermediate hives Verified 11/17/18 13:12 mivacurium Allergy Intermediate HIVES Verified 11/17/18 13:12 Home Medications Home Medications Medication Instructions Recorded Confirmed Type clopidogrel 75 mg PO QAM 09/06/18 11/17/18 History albuterol sulfate HFA 90 2 puff INHALATION Q6H PRN #8 gm 10/10/18 11/17/18 Rx mcg/actuation aerosol inhaler fluticasone 250 mcg-salmeterol 50 1 inh INHALATION QAM #14 ea 10/10/18 11/17/18 Rx mcg/dose blistr powdr for inhalation gabapentin 600 mg tablet 600 mg PO TID #90 tab 10/10/18 11/17/18 Rx ipratropium 20 mcg-albuterol 100 1 puff INHALATION QID PRN #4 gm 10/10/18 11/17/18 Rx mcg/actuation mist for inhalation pantoprazole 40 mg tablet,delayed 40 mg PO BID tab 10/10/18 11/17/18 History release amlodipine 10 mg PO QAM 10/23/18 11/17/18 History atorvastatin 20 mg PO QAM 10/23/18 11/17/18 History meclizine 25 mg PO TID PRN 10/23/18 11/17/18 History sennosides [senna] 8.6 mg PO BID PRN 10/23/18 11/17/18 History tamsulosin 0.4 mg PO HS 10/23/18 11/17/18 History balsalazide 2,250 mg PO TID #270 cap 11/01/18 11/17/18 Rx apixaban [Eliquis] 5 mg PO BID #60 tab 11/10/18 11/17/18 Rx metoprolol tartrate 50 mg PO BID #60 tab 11/10/18 11/17/18 Rx sucralfate 1 gm PO BID PRN 11/14/18 11/17/18 History aspirin [Adult Low Dose Aspirin] 81 mg PO QAM 11/17/18 11/17/18 History metformin 500 mg PO BIDM 11/17/18 11/17/18 History Past Med/Surg History Medical History Atrial fibrillation (Chronic) Avascular necrosis (Chronic) Hyperlipidemia (Chronic) Diabetes mellitus type II, controlled (Chronic) Abdominal aortic aneurysm (Chronic) Repeated falls (Chronic) Pulmonary nodules (Chronic) Peripheral vascular disease (Chronic) Lumbar radiculopathy (Chronic) Internal hemorrhoids (Chronic) Inguinal hernia (Chronic) Hiatal hernia (Chronic) Hearing loss (Chronic) Generalized osteoarthritis of multiple sites (Chronic) Essential hypertension (Chronic) Diverticulosis of colon (Chronic) Disc degeneration, lumbar (Chronic) Diabetic neuropathy (Chronic) Chronic sinusitis (Chronic) Chronic obstructive pulmonary disease (Chronic) Chronic cerebral ischemia (Chronic) Benign prostatic hyperplasia with lower urinary tract symptoms (Chronic) Anemia (Chronic) DVT prophylaxis (Resolved) Substernal chest pain (Resolved) Urinary tract infection (Resolved) AAA (abdominal aortic aneurysm) hx of Diabetes mellitus, type 2 GERD (gastroesophageal reflux disease) Hyperlipidemia Kidney stones On anticoagulant therapy plavix SOB (shortness of breath) on exertion Ulcerative colitis Surgical History History of AAA (abdominal aortic aneurysm) repair 2013 @ [facility] [place], reason for plavix History of cholecystectomy History of colonoscopy History of inguinal hernia repair History of sinus surgery History of tooth extraction all teeth removed Family History Brother Family history of diabetes mellitus Sister Family history of diabetes mellitus Breast cancer Family/Other Family history of diabetes mellitus nieces/nephews Father Lung cancer Sister Myocardial infarction, Onset Age: 66 MO happened week of 11/10/18 Other No family history of adverse response to anesthesia Social History Preferred Language: Irish Communication Ability: Effective Beliefs That Will Affect Care: None marital status: Current Living Situation: Spouse current occupational status: unemployed Feels Safe at Home: Yes Smoking Status: Former smoker Smoking End Date: 2007 Second Hand Exposure: No Hx Alcohol Use: No Hx Substance Use: No Dental Care, Regularly: No Review of Systems Review of Systems: Pertinent positives and negatives reviewed in HPI--all others negative Physical Exam Constitutional: WD/WN, vitals as above Eyes: normal visual sheth by confrontation and + anicteric sclerae Neck: normal visual inspection and trachea midline Respiratory: normal respiratory effort, lungs clear to auscultation Cardiovascular: Rate/Rhythm: regular rate and regular rhythm Gastrointestinal (Abdomen): Inspection/Auscultation: abdomen not distended Percussion/Palpation: abdomen soft; abdomen nontender Musculoskeletal: Head/Neck/Chest: normocephalic and head atraumatic negative for edema, peripheral pulses intact Skin: no rashes, warm and dry Neurologic: awake; not confused (family answers a lot of health hx questions for him) Speech / Cognition: + abnormal speech (mild speech impediment) Psychiatric: A+Ox3, euthymic affect Results & Data Vital Signs (Past 12 Hours) Vital Signs Temp Pulse Resp BP Pulse Ox 11/17/18 12:26 36.5 C 66 16 109/71 97 Diagnostic Findings CTAP: patent aortoiliac stent, bladder obstruction due to prostatomegaly Code Status & VTE Plan Code Status Full code VTE Prophylaxis Plan VTE Prophylaxis will be ordered: Yes PG Care Time/CCT Total # of Minutes Spent Total Time Spent with Patient: Total time spent is greater than 50% in coordination of care (as documented) at patient's floor/unit and/or counseling patient: (1) GI bleed GI bleed type/associated pathology: unspecified gastrointestinal hemorrhage type Qualified Code(s): K92.2 - Gastrointestinal hemorrhage, unspecified (2) Atrial fibrillation Atrial fibrillation type: unspecified Qualified Code(s): I48.91 - Unspecified atrial fibrillation
[2018-11-17] MEDS ORDERED: MAGNESIUM HYDROXIDE SUSP 30 ML UDC PO PRN (16:09)
[2018-11-17] MEDS ORDERED: CARBOHYDRATES FOR HYPOGLYCEMIA PO PRN (16:09)
[2018-11-17] MEDS ORDERED: SUCRALFATE 1 GM TAB PO PRN (16:09)
[2018-11-17] MEDS ORDERED: ALBUTEROL HFA 8 GM INHALER INH PRN (16:09)
[2018-11-17] MEDS ORDERED: GLUCOSE 10 TABS/TUBE PO PRN (16:09)
[2018-11-17] MEDS ORDERED: ACETAMINOPHEN 325 MG TAB PO PRN (16:09)
[2018-11-17] MEDS ORDERED: DEXTROSE 50% 50 ML SYRINGE IV PRN (16:09)
[2018-11-17] MEDS ORDERED: IPRATROPIUM BROMIDE/ALBUTEROL respimat INH INH PRN (16:09)
[2018-11-17] MEDS ORDERED: GLUCAGON FOR INJ 1 MG VIAL SQ PRN (16:09)
[2018-11-17] MEDS ORDERED: MECLIZINE HCL 25 MG TAB PO PRN (16:09)
[2018-11-17] MEDS ORDERED: GLUCOSE 40% GEL 15 GM TUBE PO PRN (16:09)
[2018-11-17] MEDS ORDERED: ONDANSETRON INJ 2 MG/ML 2 ML VIAL IV PRN (16:09)
--- NOTE | 2018-11-17 17:00 | Emergency Department Note ---
Entered by Crystal Cuba acting as a scribe for History of Present Illness General Chief complaint: Rectal Bleed Stated complaint: BLEEDING FROM BUTT Source: patient Mode of arrival: ambulatory Limitations: no limitations History of Present Illness Onset (ago): week(s) 1 Location: abdomen Pain Consistency: + constant Maximum Pain Intensity: 0 Quality: + other (rectal bleeding, dizziness) Associated symptoms: + other (The patient complains of melena, dizziness, and abdominal pain. The patient denies diarrhea. ); no chest pain, no nausea/vomiting and no shortness of breath The patient is a 68 year old male with a history of ulcerative colitis, closed head injury, prostate tumor, atrial fibrillation, avascular necrosis, hyper lipidemia, type 2 diabetes, abdominal aortic aneurysm, depression, and inguinal hernia who presents to the ED with complaints of constant rectal bleeding that onset 1 week ago. The patient presents with his niece. She states that the patient was started on Eliquis 1 week ago. She reports that he was in the ED recently due to a fall. The patient complains of melena, dizziness, and abdominal pain. The patient denies chest pain, shortness of breath, nausea, vomiting, and diarrhea. Per niece, the patient is on Plavix as well. Home Medications Home Medications Medication Instructions Recorded Confirmed Type clopidogrel 75 mg PO QAM 09/06/18 11/17/18 History albuterol sulfate HFA 90 2 puff INHALATION Q6H PRN #8 gm 10/10/18 11/17/18 Rx mcg/actuation aerosol inhaler fluticasone 250 mcg-salmeterol 50 1 inh INHALATION QAM #14 ea 10/10/18 11/17/18 Rx mcg/dose blistr powdr for inhalation gabapentin 600 mg tablet 600 mg PO TID #90 tab 10/10/18 11/17/18 Rx ipratropium 20 mcg-albuterol 100 1 puff INHALATION QID PRN #4 gm 10/10/18 11/17/18 Rx mcg/actuation mist for inhalation pantoprazole 40 mg tablet,delayed 40 mg PO BID tab 10/10/18 11/17/18 History release amlodipine 10 mg PO QAM 10/23/18 11/17/18 History atorvastatin 20 mg PO QAM 10/23/18 11/17/18 History meclizine 25 mg PO TID PRN 10/23/18 11/17/18 History sennosides [senna] 8.6 mg PO BID PRN 10/23/18 11/17/18 History tamsulosin 0.4 mg PO HS 10/23/18 11/17/18 History balsalazide 2,250 mg PO TID #270 cap 11/01/18 11/17/18 Rx apixaban [Eliquis] 5 mg PO BID #60 tab 11/10/18 11/17/18 Rx metoprolol tartrate 50 mg PO BID #60 tab 11/10/18 11/17/18 Rx sucralfate 1 gm PO BID PRN 11/14/18 11/17/18 History aspirin [Adult Low Dose Aspirin] 81 mg PO QAM 11/17/18 11/17/18 History metformin 500 mg PO BIDM 11/17/18 11/17/18 History Allergies Allergy/AdvReac Type Severity Reaction Status Date / Time Cipro Allergy Severe hives Unverified 04/28/17 10:01 azithromycin Allergy Intermediate Hives Verified 11/17/18 13:12 ciprofloxacin Allergy Intermediate hives Verified 11/17/18 13:12 mivacurium Allergy Intermediate HIVES Verified 11/17/18 13:12 Past Med/Surg History Medical History Atrial fibrillation (Chronic) Avascular necrosis (Chronic) Hyperlipidemia (Chronic) Diabetes mellitus type II, controlled (Chronic) Abdominal aortic aneurysm (Chronic) Repeated falls (Chronic) Pulmonary nodules (Chronic) Peripheral vascular disease (Chronic) Lumbar radiculopathy (Chronic) Internal hemorrhoids (Chronic) Inguinal hernia (Chronic) Hiatal hernia (Chronic) Hearing loss (Chronic) Generalized osteoarthritis of multiple sites (Chronic) Essential hypertension (Chronic) Diverticulosis of colon (Chronic) Disc degeneration, lumbar (Chronic) Diabetic neuropathy (Chronic) Chronic sinusitis (Chronic) Chronic obstructive pulmonary disease (Chronic) Chronic cerebral ischemia (Chronic) Benign prostatic hyperplasia with lower urinary tract symptoms (Chronic) Anemia (Chronic) DVT prophylaxis (Resolved) Substernal chest pain (Resolved) Urinary tract infection (Resolved) AAA (abdominal aortic aneurysm) hx of Diabetes mellitus, type 2 GERD (gastroesophageal reflux disease) Hyperlipidemia Kidney stones On anticoagulant therapy plavix SOB (shortness of breath) on exertion Ulcerative colitis Surgical History History of AAA (abdominal aortic aneurysm) repair 2013 @ [facility] [place], reason for plavix History of cholecystectomy History of colonoscopy History of inguinal hernia repair History of sinus surgery History of tooth extraction all teeth removed Family History Brother Family history of diabetes mellitus Sister Family history of diabetes mellitus Breast cancer Family/Other Family history of diabetes mellitus nieces/nephews Father Lung cancer Sister Myocardial infarction, Onset Age: 66 [place] happened week of 11/10/18 Other No family history of adverse response to anesthesia Social History Preferred Language: Dominican Communication Ability: Effective Beliefs That Will Affect Care: None marital status: Current Living Situation: Spouse current occupational status: unemployed Feels Safe at Home: Yes Smoking Status: Former smoker Second Hand Exposure: No Hx Alcohol Use: No Hx Substance Use: No Dental Care, Regularly: No Review of Systems See HPI for pertinent positives & negatives. and A total of 10 systems reviewed and were otherwise negative Physical Exam Vital Signs Vital Signs - 24 hr 11/17/18 12:26 11/17/18 12:40 11/17/18 14:23 Temperature 36.5 C Temperature Source Oral Sepsis Recent Fever Within 48 Hours No Sepsis Action Taken by Nursing No Action Required Pulse Rate 66 Pulse Rate [Left] 76 Respiratory Rate 16 20 Blood Pressure 109/71 Blood Pressure Mean 83 Pulse Oximetry 97 95 Oxygen Delivery Method Room Air Room Air Room Air GENERAL: Tachypneic, sitting up in bed, talking in full sentences. Alert, well appearing, well nourished, no distress, non-toxic EYE EXAM: Normal conjunctiva. OROPHARYNX: no exudate, no erythema, lips, buccal mucosa, and tongue normal and mucous membranes are moist NECK: supple, no nuchal rigidity, no adenopathy, non-tender LUNGS: Clear to auscultation. Normal chest wall mechanics, tachypneic. HEART: no murmurs, S1 normal and S2 normal ABDOMEN: abdomen soft, non-tender, normo-active bowel sounds, no masses, no rebound or guarding. RECTAL: Heme positive. BACK: Back is symmetrical on inspection and there is no deformity, no midline tenderness, no CVA tenderness. SKIN: no rashes and no bruising UPPER EXTREMITIES: upper extremities are grossly normal. LOWER EXTREMITIES: No pitting edema. NEURO EXAM: Normal sensorium, cranial nerves II-XII grossly intact, normal speech, no gross weakness of arms, no gross weakness of legs. Course 1230: Past medical records reviewed. The patient was evaluated in room C09. A complete history and physical examination was performed. 1405: I [facility]. She will evaluate the patient for further management. Consultations Consultation #1: 1402: I [facility] the [facility]. She will evaluate the patient for further management. Time: 14:05 Administered Medications Ioversol (Optiray 320 100ml) 94 ml IV ONCE PRN PRN Reason: Interaction Checking Stop: 11/21/18 13:36 Last Admin: 11/17/18 13:37 Dose: 94 ml Documented by: [id number] Discontinued Medications Sodium Chloride (Nss 1000ml) 1,000 mls @ 999 mls/hr IV .Q1H1M MARITZA Stop: 11/17/18 13:45 Last Infusion: 11/17/18 14:06 Dose: 0 mls/hr Documented by: [id number] Admin: 11/17/18 12:58 Dose: 999 mls/hr Documented by: [id number] Medical Decision Making Differential Diagnosis Differential diagnoses: Diverticulosis, AVM, coagulopathy, colitis, inflammatory bowel disease, malignancy, Lisa-Felix tear, esophagitis, peptic ulcer disease, variceal bleed, gastritis, epistaxis, fissure, hemorrhoids, as well as others were entertained. Medical Records Attestation: I reviewed the patient's medical records. Home Medications Current Medication List: was personally reviewed by me Laboratory Data Attestation: I reviewed the patient's lab results. Result diagrams: 11/17/18 12:45 11/17/18 12:45 Lab Results 11/17/18 11/17/18 11/17/18 Range/Units 12:45 12:45 12:45 WBC 14.58 H (4.8-10.8) K/uL RBC 4.64 L (4.7-6.1) M/uL Hgb 12.7 L (14.0-18.0) g/dL Hct 39.6 L (42-52) % MCV 85.3 (80-100) fL MCH 27.4 (25-34) pg MCHC 32.1 (32-36) g/dL RDW Std Deviation 48.5 H (36.4-46.3) fL RDW Coeff of Kayy 15.6 H (11.5-14.5) % Plt Count 315 (130-400) K/uL MPV 9.8 (7.4-10.4) fL Immature Gran % (Auto) 0.4 % Neut % (Auto) 84.0 % Lymph % (Auto) 9.8 % [place] % (Auto) 5.5 % Eos % (Auto) 0.2 % Baso % (Auto) 0.1 % Immature Gran # (Auto) 0.06 H (0.00-0.02) K/uL Neut # (Auto) 12.25 H (1.4-6.5) K/uL Lymph # (Auto) 1.43 (1.2-3.4) K/uL [place] # (Auto) 0.80 H (0.11-0.59) K/uL Eos # (Auto) 0.03 (0-0.5) K/uL Baso # (Auto) 0.01 (0-0.2) K/uL PT 11.3 (9.0-12.0) Seconds INR 1.1 (0.9-1.1) Sodium 139 (136-145) mmol/L Potassium 4.2 (3.5-5.1) mmol/L Chloride 103 (98-107) mmol/L Carbon Dioxide 30 (21-32) mmol/L Anion Gap 6.0 (3-11) BUN 23 H (7-18) mg/dl Creatinine 1.20 (0.6-1.4) mg/dl Est Cr Clr Drug Dosing 55.9 ml/min Est GFR ( Amer) 71.1 Est GFR (Non-Af Amer) 61.3 BUN/Creatinine Ratio 19.3 (10-20) Glucose 92 (70-99) mg/dl Calcium 8.6 (8.5-10.1) mg/dl Total Bilirubin 0.5 (0.2-1) mg/dl AST 6 L (15-37) U/L ALT 12 (12-78) U/L Alkaline Phosphatase 69 (45-117) U/L Total Protein 6.8 (6.4-8.2) gm/dl Albumin 3.3 L (3.4-5.0) gm/dl Globulin 3.5 (2.5-4.0) gm/dl Albumin/Globulin Ratio 0.9 (0.9-2) Lipase 99 (73-393) U/L Urine Color Urine Appearance (Clear) Urine pH (4.5-7.5) Ur Specific [place] (1.000-1.030) Urine Protein (Negative) Urine Glucose (UA) (Negative) Urine Ketones (Negative) Urine Blood (Negative) Urine Nitrite (Negative) Urine Bilirubin (Negative) Urine Urobilinogen (Negative) Ur Leukocyte Esterase (Negative) Blood Type Antibody Screen 11/17/18 11/17/18 Range/Units 12:45 13:25 WBC (4.8-10.8) K/uL RBC (4.7-6.1) M/uL Hgb (14.0-18.0) g/dL Hct (42-52) % MCV (80-100) fL MCH (25-34) pg MCHC (32-36) g/dL RDW Std Deviation (36.4-46.3) fL RDW Coeff of Kayy (11.5-14.5) % Plt Count (130-400) K/uL MPV (7.4-10.4) fL Immature Gran % (Auto) % Neut % (Auto) % Lymph % (Auto) % [place] % (Auto) % Eos % (Auto) % Baso % (Auto) % Immature Gran # (Auto) (0.00-0.02) K/uL Neut # (Auto) (1.4-6.5) K/uL Lymph # (Auto) (1.2-3.4) K/uL [place] # (Auto) (0.11-0.59) K/uL Eos # (Auto) (0-0.5) K/uL Baso # (Auto) (0-0.2) K/uL PT (9.0-12.0) Seconds INR (0.9-1.1) Sodium (136-145) mmol/L Potassium (3.5-5.1) mmol/L Chloride (98-107) mmol/L Carbon Dioxide (21-32) mmol/L Anion Gap (3-11) BUN (7-18) mg/dl Creatinine (0.6-1.4) mg/dl Est Cr Clr Drug Dosing ml/min Est GFR ( Amer) Est GFR (Non-Af Amer) BUN/Creatinine Ratio (10-20) Glucose (70-99) mg/dl Calcium (8.5-10.1) mg/dl Total Bilirubin (0.2-1) mg/dl AST (15-37) U/L ALT (12-78) U/L Alkaline Phosphatase (45-117) U/L Total Protein (6.4-8.2) gm/dl Albumin (3.4-5.0) gm/dl Globulin (2.5-4.0) gm/dl Albumin/Globulin Ratio (0.9-2) Lipase (73-393) U/L Urine Color Yellow Urine Appearance Clear (Clear) Urine pH 7.0 (4.5-7.5) Ur Specific [place] 1.012 (1.000-1.030) Urine Protein Negative (Negative) Urine Glucose (UA) Negative (Negative) Urine Ketones Negative (Negative) Urine Blood Negative (Negative) Urine Nitrite Negative (Negative) Urine Bilirubin Negative (Negative) Urine Urobilinogen Negative (Negative) Ur Leukocyte Esterase Negative (Negative) Blood Type A Positive Antibody Screen NEGATIVE Imaging Data Radiologist's Impression: Radiology results as stated below per my review and the radiologist's interpretation: CT abd pelvis IV con only CLINICAL HISTORY: 68 years-old Male presenting with mid abd pain. TECHNIQUE: Multidetector CT of the abdomen and pelvis was performed after the administration of intravenous contrast. IV contrast: 94 mL of Optiray 320. One or more dose lowering techniques were used consistent with the principles of ALARA (as low as reasonably achievable), including automatic exposure control, mA or kV adjustment to individual patient size, and/or use of iterative recon struction. COMPARISON: 01/05/2018.. CT DOSE (mGy.cm): The estimated cumulative dose is 266.93 mGy.cm. FINDINGS: Personal Coach topogram: Cholecystectomy clips. Lung bases: Mild multichamber enlargement of the heart. No pericardial or pleural effusion. Emphysema. Bronchial wall thickening. Reticulation in the dependent portions of the lower lobes may imply developing fibrotic change. Limited tree-in-bud nodularity in the right middle lobe as on prior exam. Liver: Normal morphology. Well-defined hypodense lesions in the liver likely hepatic cysts. Patent hepatic vasculature. Biliary: Mild biliary ductal prominence likely a reservoir effect in the post cholecystectomy state. Gallbladder surgically absent. Pancreas: Moderate parenchymal atrophy. Spleen: Normal. Adrenal glands: Normal. Kidneys and ureters: Several renal cysts noted. Cysts at the lower pole the left kidney may have associated mural calcification. This is unchanged. No hydronephrosis. Ureters nondistended. Trace urothelial thickening suggested, likely reflux uropathy. Bladder: Circumferential bladder wall thickening. Pelvic organs: Prostate enlargement likely secondary to benign prostatic hyperplasia. Bowel: Mild stool burden throughout normal caliber colon. The appendix is normal. No bowel obstruction. Peritoneal cavity: No free fluid or intraperitoneal gas. Lymph nodes: No enlarged lymph nodes in the abdomen or pelvis. Vasculature: Atherosclerosis. Aortobiiliac stent graft in place within the infrarenal abdominal aorta. The stent is patent. IVC patent. Abdominal wall: Normal. Musculoskeletal: Old left rib fractures noted. IMPRESSION: 1. No acute intra-abdominal pathology. 2. Chronic bladder outlet obstruction secondary to prostatomegaly. 3. Aortobiiliac stent graft in place. Patent stent. 4. Mild cardiomegaly. 5. Emphysema with chronic changes at the lung bases. Electronically signed by: Amauri Quarles M.D. 11/17/2018 1:57 PM Dictated: 11/17/18 1347 Transcribed: 11/17/18 1347 Blood Pressure Blood Pressure Findings: Normal blood pressure MDM Narrative Patient is a 68-year-old male who presents the ER for abdominal pain associated with bright red blood and dark tarry stools the past 7 days. Patient was recently admitted and discharged on Eliquis for a A. fib with RVR. IV was established blood work was obtained. Labs show mild leukocytosis of 14.5 thousand. Hemoglobin 12.7 which is consistent with several of his previous hemoglobins. INR is unremarkable. BMP along with LFTs bilirubin lipase is unremarkable. UA is negative. Patient was typed and crossed. CT abdomen pelvis shows no acute pathology. He was updated bedside. Discussed with GI Dr. Meeks recommended bringing him in. Updated family and patient at bedside. Patient was given IV fluids and admitted to the hospitalist for GI bleed on Eliquis and Plavix. Currently hemodynamically stable not requiring any reversal. Impression & Plan GI bleed, Leukocytosis, Anticoagulated Discharge Plan Visit Data *Final* Discharge Date/Time: 11/17/18 15:33 Chief Complaint: Rectal Bleed Stated Complaint: BLEEDING FROM BUTT ED Provider: Juan Smith Discharge Problem: GI bleed, Leukocytosis, Anticoagulated Patient Disposition: Admitted As Inpatient Discharge Instructions Interventions: ED Discharge Assessment Last Done: 11/17/18 15:33 Discharge Problem: GI bleed Qualifiers: GI bleed type/associated pathology: unspecified gastrointestinal hemorrhage type Qualified Code(s): K92.2 - Gastrointestinal hemorrhage, unspecified Leukocytosis Qualifiers: Leukocytosis type: unspecified Qualified Code(s): D72.829 - Elevated white blood cell count, unspecified The scribe's documentation has been prepared under my direction and personally r eviewed by me in its entirety. I confirm that the note above accurately reflects all work, treatment, procedures, and medical decision making performed by me.
[2018-11-17] MEDS: SODIUM CHLORIDE 0.9% 1000ML 1,000 ML IV SCH (17:18)
[2018-11-17] MEDS: INSULIN ASPART 100 UNITS/ML 3 ML PEN SC SCH ×2 (18:26→21:35)
[2018-11-17] MEDS: METOPROLOL TARTRATE 50 MG TAB PO SCH (21:32)
[2018-11-17] MEDS: TAMSULOSIN HCL 0.4 MG CAP PO SCH (21:32)
[2018-11-17] MEDS: MESALAMINE 400 MG CAPDR PO SCH (21:32)
[2018-11-17] MEDS: GABAPENTIN 600 MG TAB PO SCH (21:35)
[2018-11-17] MEDS: PANTOprazole 40 MG in SYRINGE 0 ML IV SCH (21:35)
--- NOTE | 2018-11-17 22:54 | Consultation Report ---
DATE OF CONSULTATION: 11/17/2018 GASTROENTEROLOGY CONSULTATION AGE: 68 SEX: Male. RACE: . ATTENDING PHYSICIAN: Chantal Lucas MD CONSULTING PHYSICIAN: Enrique Meeks DO REASON FOR CONSULTATION: Ulcerative colitis. HISTORY OF PRESENT ILLNESS: This patient is a 68-year-old male who has an extensive past medical history including ulcerative proctitis. He also has a history of atrial fibrillation and was seen this week by Dr. Arroyo who has been holding off on starting anticoagulation at this time. The patient did undergo a colonoscopy on 11/01/2018 secondary to worsening symptoms of ulcerative proctitis and was found to have inflammation involving the rectal mucosa which was noted to be severe. Biopsies were performed at that time and returned positive for active chronic proctitis. He was also noted to have a positive CMV immunostain. He was started at that time on prednisone taper 40 mg daily to taper by 5 mg every week and he was also informed to increase his balsalazide to 3 capsules 3 times a day. He had been noncompliant in the past with balsalazide therapy. Over the past few weeks, we have attempted to have the patient start therapy for CMV; however, we had a delay in getting in touch with the patient as he did not return our call initially and subsequently we were trying to arrange an infectious disease consult as an outpatient. He continued to have rectal bleeding and was advised to come to the Emergency Room today. Upon arrival to the Department of Emergency Medicine, he was noted to have anemia with H and H of 12.7 and 39.6. He was also noted to have an elevated white blood cell count of 14.58. His platelet count today was 315. BUN was 23. Creatinine was 1.2. A CT scan of the abdomen and pelvis was performed in the Department of Emergency Medicine today as well with I.V. contrast only and he was noted to have no acute intraabdominal pathology. There was chronic bladder outlet obstruction secondary to prostatomegaly. There was an aortoiliac stent graft in place and stent was patent. There was mild cardiomegaly and emphysematous changes at the lung bases. At the time I saw the patient, he did complain of some mild left-sided abdominal pain which he rated as 4/10 in intensity, nonradiating without alleviating or exacerbating factors. He described the pain as a chronic ache and states that it has been associated with rectal bleeding and this is not only limited to times he is having a bowel movement, he states that he is having free passage of blood. He denies any hematemesis, fevers, chills, nausea or vomiting. He further denies any headaches, blurred vision, syncope, seizures, loss of consciousness, chest pain, palpitations, shortness of breath, cough, dysuria, hematuria, arthralgia, myalgias, numbness or tingling in his extremities, skin rash or other complaints. PAST MEDICAL HISTORY: Significant for abdominal aortic aneurysm, chronic anemia, benign prostatic hypertrophy, chronic cerebral ischemia, chronic obstructive pulmonary disease, cytomegalovirus colitis, history of colon polyp, depression, diabetes, diabetic neuropathy, diverticulosis, gastroesophageal reflux disease, ulcerative proctitis, laryngopharyngeal reflux, nephrolithiasis, paroxysmal atrial fibrillation, pulmonary nodules and transient ischemic attack. PAST SURGICAL HISTORY: History of knee arthroscopy, cholecystectomy, inguinal hernia repair and sinus surgery. ALLERGIES: CIPROFLOXACIN, AZITHROMYCIN AND MIVACURIUM. MEDICATIONS: At present, Tylenol 650 mg p.o. q. 4 hours p.r.n. fever, albuterol 2 puffs via inhaler q. 6 hours p.r.n., Norvasc 10 mg p.o. q.a.m., Advair 1 puff via inhaler q.a.m., Neurontin 600 mg p.o. t.i.d., sliding scale insulin, Flovent 1 puff via inhaler q.i.d. p.r.n., magnesium hydroxide 30 mL p.o. q. 12 hours p.r.n., metoprolol 50 mg p.o. b.i.d., meclizine 25 mg p.o. t.i.d. p.r.n., Zofran 4 mg I.V. q. 6 hours p.r.n., Carafate 1 g p.o. b.i.d. and tamsulosin 0.4 mg p.o. at bedtime. SOCIAL HISTORY: He lives with his . No alcohol. No illicit drug use. No tobacco. FAMILY HISTORY: Negative for gastrointestinal malignancy or inflammatory bowel disease. REVIEW OF SYSTEMS: Negative x12 system review other than pertinent positives listed in the HPI. PHYSICAL EXAMINATION: VITAL SIGNS: Temperature 36.5, pulse 72, respirations 16, blood pressure 108/64 and pulse ox 100% on room air. GENERAL: He is awake, cooperative, chronically ill appearing, in no acute distress. HEAD: Normocephalic and atraumatic. EYES: Pupils are equal and round. Extraocular muscles are intact. ENT: External evaluation of ears and nose are normal. Oropharynx is clear. NECK: Soft. Supple. No JVD or lymphadenopathy. CHEST: Clear to auscultation bilaterally. CARDIOVASCULAR SYSTEM: Regular rate and rhythm. ABDOMEN: Soft, tender in the left upper and lower quadrants and nondistended. There are positive bowel sounds. There is no hepatosplenomegaly or stigmata of chronic liver disease. EXTREMITIES: No clubbing, cyanosis or edema. SKIN: Soft. [place]. Good turgor. LABORATORY STUDIES AND RADIOGRAPHIC STUDIES: Reviewed in the HPI. IMPRESSION: This is a 68-year-old male with a history of severe chronic proctitis with overlying cytomegalovirus colitis. PLAN: At the present time, I would recommend that the patient be continued on mesalamine. He is on balsalazide as an outpatient; however, it is nonformulary medication here. Therefore, I will give him 400 mg tablets to take 1600 mg p.o. t.i.d. I will hold off on prednisone therapy secondary to his cytomegalovirus infection. I will check a cytomegalovirus titer now. If his titer is elevated, I will recommend that the patient be treated with ganciclovir therapy I.V. which is usually prescribed 5 mg/kg twice daily for 14 days. He will need monitored for renal function as well as complete blood count throughout the course of his therapy secondary to potential side effects. I will also put a consult into infectious disease for their guidance and therapy and ask pharmacy to also make recommendations if this is needed. He will also need Valtrex therapy 450 mg by mouth twice daily for 4 weeks as an outpatient following his I.V. therapy if infectious disease agrees. I will follow his clinical course and we will discuss the case with Dr. Bibi Neil who is on-call for the weekend. If there are any further questions, please contact Dr. Neil in this regard. Once again, thank you for allowing me to participate in the care of this patient. If you have any further questions, please do not hesitate in contacting me. CARA
[2018-11-18] MEDS ORDERED: [UNRECOGNIZED DRUG - OTHER] SCH
[2018-11-18] MEDS: SODIUM CHLORIDE 0.9% 1000ML 1,000 ML IV SCH ×2 (05:40→18:33)
[2018-11-18 05:54] LABS: Basophils # (auto) 0.01 K/uL (0-0.2); Basophils % (auto) 0.1 %; Eosinophils # (auto) 0.05 K/uL (0-0.5); Eosinophils % (auto) 0.5 %; Hematocrit (blood only) 39.7 % (42-52); Hemoglobin 12.6 g/dL (14.0-18.0); Immature Granulocytes # (auto) 0.04 K/uL (0.00-0.02); Immature Granulocytes % (auto) 0.4 %; Lymphocytes # (auto) 2.94 K/uL (1.2-3.4); Lymphocytes % (auto) 30.2 %; Mean Corpuscular Hgb Conc 31.7 g/dL (32-36); Mean Corpuscular Volume 84.3 fL (80-100); Mean Platelet Volume 9.9 fL (7.4-10.4); Monocytes # (auto) 0.73 K/uL (0.11-0.59); Monocytes % (auto) 7.5 %; Neutrophils # (auto) 5.98 K/uL (1.4-6.5); Neutrophils % (auto) 61.3 %; Platelet Count 275 K/uL (130-400); RDW Coefficient of Variation 15.7 % (11.5-14.5); RDW Standard Deviation 48.2 fL (36.4-46.3); Red Blood Count 4.71 M/uL (4.7-6.1); White Blood Count 9.75 K/uL (4.8-10.8)
[2018-11-18 06:20] LABS: BUN Creatinine Ratio 17.3 (10-20); Calcium 8.3 mg/dl (8.5-10.1); Creatinine Clr Calc Pharmacy 72.8 ml/min; Est GFR (African American) 99.3; Est GFR (Non-African American) 85.7; Potassium 4.1 mmol/L (3.5-5.1)
[2018-11-18] MEDS ORDERED: AMLODIPINE BESYLATE 5 MG TAB PO SCH (09:00)
--- NOTE | 2018-11-18 09:17 | Gastroenterology Progress Note ---
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 It is reassuring that the patient's hematochezia has ceased this morning. Awaiting infectious disease consultation to determine if therapy for suspected CMV should be considered. Recommendations Advance diet as tolerated Await infectious disease input. 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 This morning he notes that he had a bowel movement without any hematochezia. He is tolerating a full liquid diet without any difficulties. Review of Systems Eyes: no diplopia Respiratory: no change in sputum and no hemoptysis Cardiovascular: no chest pain with activity and no dyspnea at rest Gastrointestinal: no bloating, no nausea and no hematemesis Physical Exam Constitutional: WD/WN, vitals as above well developed and well nourished; no acute distress Neck: trachea midline, no thyromegaly Respiratory: normal respiratory effort, lungs clear to auscultation Cardiovascular: Rate/Rhythm: regular rhythm Heart Sounds: no murmur Gastrointestinal (Abdomen): normal bowel sounds, soft, nontender, no hep atosplenomegaly Results & Data Vital Signs (Past 12 Hours) Vital Signs Temp Pulse Pulse Resp BP BP Pulse Ox 11/18/18 07:37 36.5 C 65 20 125/82 93 11/18/18 04:43 36.6 C 78 20 118/71 93 11/17/18 23:51 36.5 C 74 20 118/68 94 11/17/18 22:20 74 Laboratory Results Laboratory Results - last 24 hr 11/17/18 11/17/18 11/17/18 12:45 12:45 12:45 WBC 14.58 H RBC 4.64 L Hgb 12.7 L Hct 39.6 L MCV 85.3 MCH 27.4 MCHC 32.1 RDW Std Deviation 48.5 H RDW Coeff of Kayy 15.6 H Plt Count 315 MPV 9.8 Immature Gran % (Auto) 0.4 Neut % (Auto) 84.0 Lymph % (Auto) 9.8 Dewitt % (Auto) 5.5 Eos % (Auto) 0.2 Baso % (Auto) 0.1 Immature Gran # (Auto) 0.06 H Neut # (Auto) 12.25 H Lymph # (Auto) 1.43 Dewitt # (Auto) 0.80 H Eos # (Auto) 0.03 Baso # (Auto) 0.01 PT 11.3 INR 1.1 Sodium 139 Potassium 4.2 Chloride 103 Carbon Dioxide 30 Anion Gap 6.0 BUN 23 H Creatinine 1.20 Est Cr Clr Drug Dosing 55.9 Est GFR ( Amer) 71.1 Est GFR (Non-Af Amer) 61.3 BUN/Creatinine Ratio 19.3 Glucose 92 POC Glucose Calcium 8.6 Total Bilirubin 0.5 AST 6 L ALT 12 Alkaline Phosphatase 69 Total Protein 6.8 Albumin 3.3 L Globulin 3.5 Albumin/Globulin Ratio 0.9 Lipase 99 Urine Color Urine Appearance Urine pH Ur Specific [place] Urine Protein Urine Glucose (UA) Urine Ketones Urine Blood Urine Nitrite Urine Bilirubin Urine Urobilinogen Ur Leukocyte Esterase CMV Specimen Source CMV Qnt PCR IU/mL CMV Qnt PCR log IU/mL Blood Type Antibody Screen 11/17/18 11/17/18 11/17/18 12:45 12:45 13:25 WBC RBC Hgb Hct MCV MCH MCHC RDW Std Deviation RDW Coeff of Kayy Plt Count MPV Immature Gran % (Auto) Neut % (Auto) Lymph % (Auto) [place] % (Auto) Eos % (Auto) Baso % (Auto) Immature Gran # (Auto) Neut # (Auto) Lymph # (Auto) [place] # (Auto) Eos # (Auto) Baso # (Auto) PT INR Sodium Potassium Chloride Carbon Dioxide Anion Gap BUN Creatinine Est Cr Clr Drug Dosing Est GFR ( Amer) Est GFR (Non-Af Amer) BUN/Creatinine Ratio Glucose POC Glucose Calcium Total Bilirubin AST ALT Alkaline Phosphatase Total Protein Albumin Globulin Albumin/Globulin Ratio Lipase Urine Color Yellow Urine Appearance Clear Urine pH 7.0 Ur Specific [place] 1.012 Urine Protein Negative Urine Glucose (UA) Negative Urine Ketones Negative Urine Blood Negative Urine Nitrite Negative Urine Bilirubin Negative Urine Urobilinogen Negative Ur Leukocyte Esterase Negative CMV Specimen Source Pending CMV Qnt PCR IU/mL Pending CMV Qnt PCR log IU/mL Pending Blood Type A Positive Antibody Screen NEGATIVE 11/17/18 11/17/18 11/18/18 16:21 20:09 05:15 WBC 9.75 RBC 4.71 Hgb 12.6 L Hct 39.7 L MCV 84.3 MCH 26.8 MCHC 31.7 L RDW Std Deviation 48.2 H RDW Coeff of Kayy 15.7 H Plt Count 275 MPV 9.9 Immature Gran % (Auto) 0.4 Neut % (Auto) 61.3 Lymph % (Auto) 30.2 Dewitt % (Auto) 7.5 Eos % (Auto) 0.5 Baso % (Auto) 0.1 Immature Gran # (Auto) 0.04 H Neut # (Auto) 5.98 Lymph # (Auto) 2.94 Dewitt # (Auto) 0.73 H Eos # (Auto) 0.05 Baso # (Auto) 0.01 PT INR Sodium Potassium Chloride Carbon Dioxide Anion Gap BUN Creatinine Est Cr Clr Drug Dosing Est GFR ( Amer) Est GFR (Non-Af Amer) BUN/Creatinine Ratio Glucose POC Glucose 123 H 122 H Calcium Total Bilirubin AST ALT Alkaline Phosphatase Total Protein Albumin Globulin Albumin/Globulin Ratio Lipase Urine Color Urine Appearance Urine pH Ur Specific [place] Urine Protein Urine Glucose (UA) Urine Ketones Urine Blood Urine Nitrite Urine Bilirubin Urine Urobilinogen Ur Leukocyte Esterase CMV Specimen Source CMV Qnt PCR IU/mL CMV Qnt PCR log IU/mL Blood Type Antibody Screen 11/18/18 11/18/18 05:15 07:17 WBC RBC Hgb Hct MCV MCH MCHC RDW Std Deviation RDW Coeff of Kayy Plt Count MPV Immature Gran % (Auto) Neut % (Auto) Lymph % (Auto) [place] % (Auto) Eos % (Auto) Baso % (Auto) Immature Gran # (Auto) Neut # (Auto) Lymph # (Auto) [place] # (Auto) Eos # (Auto) Baso # (Auto) PT INR Sodium 140 Potassium 4.1 Chloride 105 Carbon Dioxide 31 Anion Gap 4.0 BUN 16 Creatinine 0.91 Est Cr Clr Drug Dosing 72.8 Est GFR ( Amer) 99.3 Est GFR (Non-Af Amer) 85.7 BUN/Creatinine Ratio 17.3 Glucose 93 POC Glucose 90 Calcium 8.3 L Total Bilirubin AST ALT Alkaline Phosphatase Total Protein Albumin Globulin Albumin/Globulin Ratio Lipase Urine Color Urine Appearance Urine pH Ur Specific [place] Urine Protein Urine Glucose (UA) Urine Ketones Urine Blood Urine Nitrite Urine Bilirubin Urine Urobilinogen Ur Leukocyte Esterase CMV Specimen Source CMV Qnt PCR IU/mL CMV Qnt PCR log IU/mL Blood Type Antibody Screen
[2018-11-18] MEDS: FLUTICASONE/SALMETEROL 250/50 (ADVAIR) 14 PUFF/1 INHALER INH SCH (09:28)
[2018-11-18] MEDS: METOPROLOL TARTRATE 50 MG TAB PO SCH ×2 (09:29→20:42)
[2018-11-18] MEDS: PANTOprazole 40 MG in SYRINGE 0 ML IV SCH (09:29)
[2018-11-18] MEDS: MESALAMINE 400 MG CAPDR PO SCH ×3 (09:29→20:40)
[2018-11-18] MEDS: GABAPENTIN 600 MG TAB PO SCH ×3 (09:29→20:37)
[2018-11-18] MEDS: INSULIN ASPART 100 UNITS/ML 3 ML PEN SC SCH ×4 (09:32→20:40)
--- NOTE | 2018-11-18 10:46 | Infectious Disease Consult ---
Date of Consultation November 18, 2018 Assessment & Plan (1) CMV colitis: 68-year-old male with chronic proctitis now with what appears to be infection with CMV. Given the lack of other systemic complaints and improvement in symptoms, would think that treatment could be given orally with valgan ciclovir 900 mg twice daily for 21 days. If patient to remain on significant immunosuppressive therapy, would then need to consider continued prophylactic therapy thereafter. Will need to monitor CBC and renal function while therapy. Will discuss. Will follow while in hospital. History of Present Illness Reason for Consultation: CMV colitis Attending Physician: Isamar Resendiz MD History of Present Illness 68-year-old male with history of ulcerative proctitis on immunosuppressive therapy, as well as hypertension, hyperlipidemia, atrial fibrillation, diabetes mellitus, recently hospitalized with chest pain and started on Eliquis. He was sent to the hospital by his pulp tester with worsening rectal bleeding. He recently had colonoscopy, and now pathology showing evidence of CMV infection. Bleeding has subsided over last 24 hours, patient feeling well. He denies any recent bouts of abdominal pain, fever, or other systemic complaints. Currently pain-free. Allergies Allergy/AdvReac Type Severity Reaction Status Date / Time Cipro Allergy Severe hives Unverified 04/28/17 10:01 azithromycin Allergy Intermediate Hives Verified 11/17/18 13:12 ciprofloxacin Allergy Intermediate hives Verified 11/17/18 13:12 mivacurium Allergy Intermediate HIVES Verified 11/17/18 13:12 Home Medications Home Medications Medication Instructions Recorded Confirmed Type albuterol sulfate HFA 90 2 puff INHALATION Q6H PRN #8 gm 10/10/18 11/17/18 Rx mcg/actuation aerosol inhaler fluticasone 250 mcg-salmeterol 50 1 inh INHALATION QAM #14 ea 10/10/18 11/17/18 Rx mcg/dose blistr powdr for inhalation gabapentin 600 mg tablet 600 mg PO TID #90 tab 10/10/18 11/17/18 Rx ipratropium 20 mcg-albuterol 100 1 puff INHALATION QID PRN #4 gm 10/10/18 11/17/18 Rx mcg/actuation mist for inhalation pantoprazole 40 mg tablet,delayed 40 mg PO BID tab 10/10/18 11/17/18 History release sennosides [senna] 8.6 mg PO BID PRN 10/23/18 11/17/18 History tamsulosin 0.4 mg PO HS 10/23/18 11/17/18 History balsalazide 2,250 mg PO TID #270 cap 11/01/18 11/17/18 Rx metoprolol tartrate 50 mg PO BID #60 tab 11/10/18 11/17/18 Rx sucralfate 1 gm PO BID PRN 11/14/18 11/17/18 History amlodipine 5 mg PO QAM #0 tab 11/19/18 11/19/18 Rx atorvastatin 20 mg tablet 20 mg PO DAILY tab 11/19/18 11/19/18 History meclizine 25 mg tablet 25 mg PO TID PRN 11/19/18 11/19/18 History metformin 500 mg tablet 500 mg PO BID tab 11/19/18 11/19/18 History valganciclovir 900 mg PO BID 21 Days #84 tab 11/19/18 Rx Patient History Medical History Atrial fibrillation (Chronic) Avascular necrosis (Chronic) Hyperlipidemia (Chronic) Diabetes mellitus type II, controlled (Chronic) Abdominal aortic aneurysm (Chronic) Repeated falls (Chronic) Pulmonary nodules (Chronic) Peripheral vascular disease (Chronic) Lumbar radiculopathy (Chronic) Internal hemorrhoids (Chronic) Inguinal hernia (Chronic) Hiatal hernia (Chronic) Hearing loss (Chronic) Generalized osteoarthritis of multiple sites (Chronic) Essential hypertension (Chronic) Diverticulosis of colon (Chronic) Disc degeneration, lumbar (Chronic) Diabetic neuropathy (Chronic) Chronic sinusitis (Chronic) Chronic obstructive pulmonary disease (Chronic) Chronic cerebral ischemia (Chronic) Benign prostatic hyperplasia with lower urinary tract symptoms (Chronic) Anemia (Chronic) DVT prophylaxis (Resolved) Substernal chest pain (Resolved) Urinary tract infection (Resolved) AAA (abdominal aortic aneurysm) hx of Diabetes mellitus, type 2 GERD (gastroesophageal reflux disease) Hyperlipidemia Kidney stones On anticoagulant therapy plavix SOB (shortness of breath) on exertion Ulcerative colitis Surgical History History of AAA (abdominal aortic aneurysm) repair 2013 @ [facility] [place], reason for plavix History of cholecystectomy History of colonoscopy History of inguinal hernia repair History of sinus surgery History of tooth extraction all teeth removed Family History Brother Family history of diabetes mellitus Sister Family history of diabetes mellitus Breast cancer Family/Other Family history of diabetes mellitus nieces/nephews Father Lung cancer Sister Myocardial infarction, Onset Age: 66 [place] happened week of 11/10/18 Other No family history of adverse response to anesthesia Social History Preferred Language: Kazakh Communication Ability: Effective Beliefs That Will Affect Care: None marital status: Current Living Situation: Spouse current occupational status: unemployed Feels Safe at Home: Yes Smoking Status: Former smoker Tobacco Type: cigarettes Second Hand Exposure: No Hx Alcohol Use: No Hx Substance Use: No Dental Care, Regularly: No Review of Systems Review of Systems: All systems reviewed & are unremarkable except as noted in HPI & below Physical Exam Constitutional: WD/WN, vitals as above comfortable; no acute distress Eyes: PERRL, conjunctivae normal, anicteric sclerae ENMT: external ear and nose normal, oropharynx normal Neck: trachea midline, no thyromegaly neck nontender Respiratory: normal respiratory effort, lungs clear to auscultation normal percussion; does not use accessory muscles Cardiovascular: Rate/Rhythm: regular rate and regular rhythm Heart Sounds: normal S1 and normal S2; no gallop, no murmur and no cardiac rub Vessels: normal peripheral pulses; no JVD Gastrointestinal (Abdomen): normal bowel sounds, soft, nontender, no hepatosplenomegaly Musculoskeletal: no cyanosis or clubbing, extremities motor strength 5/5 Spine: thoracic spine normal to inspection and lumbar spine normal to inspection; no cervical spinal tenderness Skin: no rashes, warm and dry normal turgor; no lesions Neurologic: patellar DTR's 2+ bilat, sensation intact no focal motor deficits Psychiatric: A+Ox3, euthymic affect Orientation: cooperative Lymphatic: no cervical or axillary lymphadenopathy no inguinal lymphadenopathy Results & Data Vital Signs (Past 12 Hours) Vital Signs Temp Pulse Pulse Resp BP BP Pulse Ox 11/18/18 08:00 66 11/18/18 07:37 36.5 C 65 20 125/82 93 11/18/18 04:43 36.6 C 78 20 118/71 93 11/17/18 23:51 36.5 C 74 20 118/68 94 Laboratory Results Short CBC 11/17/18 11/18/18 Range/Units 12:45 05:15 WBC 14.58 H 9.75 (4.8-10.8) K/uL Hgb 12.7 L 12.6 L (14.0-18.0) g/dL Hct 39.6 L 39.7 L (42-52) % Plt Count 315 275 (130-400) K/uL BMP 11/17/18 11/18/18 12:45 05:15 Sodium 139 140 Potassium 4.2 4.1 Chloride 103 105 Carbon Dioxide 30 31 BUN 23 H 16 Creatinine 1.20 0.91 Glucose 92 93 Calcium 8.6 8.3 L Liver Function 11/17/18 Range/Units 12:45 Total Bilirubin 0.5 (0.2-1) mg/dl AST 6 L (15-37) U/L ALT 12 (12-78) U/L Alkaline Phosphatase 69 (45-117) U/L Albumin 3.3 L (3.4-5.0) gm/dl Urine 11/17/18 Range/Units 13:25 Urine Color Yellow Urine Appearance Clear (Clear) Urine pH 7.0 (4.5-7.5) Ur Specific [place] 1.012 (1.000-1.030) Urine Protein Negative (Negative) Urine Glucose (UA) Negative (Negative) Diagnostic Findings CT abd pelvis IV con only CLINICAL HISTORY: 68 years-old Male presenting with mid abd pain. TECHNIQUE: Multidetector CT of the abdomen and pelvis was performed after the administration of intravenous contrast. IV contrast: 94 mL of Optiray 320. One or more dose lowering techniques were used consistent with the principles of ALARA (as low as reasonably achievable), including automatic exposure control, mA or kV adjustment to individual patient size, and/or use of iterative reconstruction. COMPARISON: 01/05/2018.. CT DOSE (mGy.cm): The estimated cumulative dose is 266.93 mGy.cm. FINDINGS: Director Call topogram: Cholecystectomy clips. Lung bases: Mild multichamber enlargement of the heart. No pericardial or pl eural effusion. Emphysema. Bronchial wall thickening. Reticulation in the dependent portions of the lower lobes may imply developing fibrotic change. Limited tree-in-bud nodularity in the right middle lobe as on prior exam. Liver: Normal morphology. Well-defined hypodense lesions in the liver likely hepatic cysts. Patent hepatic vasculature. Biliary: Mild biliary ductal prominence likely a reservoir effect in the post cholecystectomy state. Gallbladder surgically absent. Pancreas: Moderate parenchymal atrophy. Spleen: Normal. Adrenal glands: Normal. Kidneys and ureters: Several renal cysts noted. Cysts at the lower pole the left kidney may have associated mural calcification. This is unchanged. No hydronephrosis. Ureters nondistended. Trace urothelial thickening suggested, likely reflux uropathy. Bladder: Circumferential bladder wall thickening. Pelvic organs: Prostate enlargement likely secondary to benign prostatic hyperplasia. Bowel: Mild stool burden throughout normal caliber colon. The appendix is normal. No bowel obstruction. Peritoneal cavity: No free fluid or intraperitoneal gas. Lymph nodes: No enlarged lymph nodes in the abdomen or pelvis. Vasculature: Atherosclerosis. Aortobiiliac stent graft in place within the infrarenal abdominal aorta. The stent is patent. IVC patent. Abdominal wall: Normal. Musculoskeletal: Old left rib fractures noted. IMPRESSION: 1. No acute intra-abdominal pathology. 2. Chronic bladder outlet obstruction secondary to prostatomegaly. 3. Aortobiiliac stent graft in place. Patent stent. 4. Mild cardiomegaly. 5. Emphysema with chronic changes at the lung bases. Electronically signed by: Amauri Quarles M.D. 11/17/2018 1:57 PM
--- NOTE | 2018-11-18 14:00 | Consultation Report ---
DATE OF CONSULTATION: 11/18/2018 REQUESTING: Chantal Lucas MD ROLLER EMBOSSER: Sky Kohli DO, [facility] Cardiology for Dr. Rafael Arroyo who is the patient's primary animal therapist. Dear Chantal: Thank you for requesting a cardiology consultation with regards to Khadar's chronic atrial fibrillation and need for anticoagulation in the face of recurrent GI bleeding. As you know, he has ulcerative proctitis. He was recently admitted to [facility] due to a new-onset AFib that was asymptomatic. He has had an extensive GI workup and was found to have a rectal ulceration and was treated. He has a history of peripheral arterial disease with a previous stent graft and has been on long-term aspirin and Plavix. He was placed on apixaban after discussion with GI who was waiting for his ulcerations to heal. He notes yesterday he had blood on the toilet paper when he wiped himself. He had noted bright red blood per rectum for 2 days. He also describes that his stools are darkish red to black in color. He also notes at times it has clot mixed in with the stool. He denies any further chest pain or chest pressure that he had with his previous admission. At that time, he underwent a stress echocardiography which was negative for ischemia at a very low functional capacity, though. He was having lightheadedness and dizziness last week which was orthostatic in nature. He denies any chest discomfort climbing 3 steps into his home. He denies any palpitations or fluttering or feeling his heart racing and is unaware that he is in atrial fibrillation. He denies PND, orthopnea, fevers, chills or sweats, cough, productive sputum. He denies coughing up any blood or vomiting any blood. He tastes of any blood when he brushes his teeth. He is hard of hearing. The rest of complete review of systems is negative. PAST MEDICAL HISTORY: 1. Recurrent lower GI bleed. 2. Known ulcerative proctitis. 3. Asymptomatic atrial fibrillation with a CHADS2-VASc score of 4 that being his age, hypertension, vascular disease, and diabetes mellitus type 2. 4. History of prostate tumor. 5. Hyperlipidemia. 6. Diabetes mellitus type 2. 7. Status post stent grafting for an abdominal aortic aneurysm. 8. COPD. 9. BPH. SOCIAL HISTORY: He stopped smoking in 2007. He is . He denies any alcohol. He is retired. FAMILY HISTORY: Positive for diabetes and a sister who had heart attack at the age of 66. MEDICATIONS: Reviewed in electronic medical record. ALLERGIES: CIPROFLOXACIN, AZITHROMYCIN, AND MIVACURIUM. PHYSICAL EXAMINATION: GENERAL: He is awake, alert, oriented x3. He is hard of hearing. VITAL SIGNS: His heart rate is 66, blood pressure 125/82, respirations 20, sat 93%. HEENT: 2+ carotid upstrokes, no evidence of carotid bruits. Jugular venous pressure appeared normal. Sclerae is anicteric. Hearing is normal. LUNGS: Globally decreased breath sounds. No rales, rhonchi or wheezing. HEART: Irregular rate and rhythm. No appreciable murmurs, rubs or gallops. ABDOMEN: Soft, nontender, nondistended. Positive bowel sounds. EXTREMITIES: No clubbing, cyanosis or edema. PSYCHIATRIC: His affect appeared appropriate. DIAGNOSTIC DATA: Stress echo from his last admission 11/10/2018, he exercises only a minute and 57 seconds achieving 4 mets. His heart rate was 118% of maximum predicted for his age. Hid LV function was normal at rest and there were no wall motion abnormalities with exercise at a very limited functional capacity. He had mild mitral and aortic insufficiency, and mild biatrial enlargement. LABORATORY DATA: His hemoglobin is 12.6, which is down from 13.9 on 11/10 and 13.7 on 09/14. His platelet count is 275. His BMP is normal. IMPRESSION: 1. Chronic asymptomatic atrial fibrillation with a CHADS2-VASc score of 4. 2. Recurrent bright red blood per rectum in a patient with ulcerative colitis and ulcerative proctitis. 3. Peripheral arterial disease, status post stent grafting of his abdominal aorta. 4. Hypertension. 5. Diabetes. As is documented in the H and P, it appears that he was on Plavix before his previous admission, but not on aspirin and then went home on triple therapy with aspirin, Plavix and anticoagulation. The important question is deciding which antiplatelet he should be on. There is really no data for long-term Plavix unless he had an issue with aspirin or an allergy with aspirin. If he is going to be on antiplatelet therapy, then 81 mg of aspirin is acceptable. The next issue is with regards to anticoagulation and apixaban is a reasonable drug. The problem for him is he has ulcerative colitis which increases his risk of bleeding. Although he has an elevated CHADS2-VASc score, at this point I would try to get his GI issues under control and if they are, then anticoagulation with apixaban can be retried as an outpatient. If he is unable to be on anticoagulation due to recurrent bleeding, at that point, he is a candidate for a Watchman procedure understanding he would need anticoagulation for the first 6 weeks with aspirin and then would need dual antiplatelet therapy for the following 6 weeks. After that, he would only need to be on aspirin therapy. For now, I would leave him off anticoagulation until his GI symptoms resolved and ID completes his workup. From antiplatelet therapy standpoint, aspirin is probably adequate. Otherwise, he should be on aggressive risk factor modification, given his risk factors for cardiovascular disease.
[2018-11-18] MEDS: SODIUM CHLORIDE 0.9% IV SCH (17:07)
[2018-11-18] MEDS: GANCICLOVIR SODIUM IV SCH (17:07)
--- NOTE | 2018-11-18 18:37 | Hospitalist Progress Note ---
Date of Service November 18, 2018 Assessment & Plan (1) GI bleed: Likely related to ulcerative proctitis, CMV infection of the colon, in the setting of aspirin, Plavix, and Eliquis use Was improved, but then had some rectal bleeding again this evening Hemoglobin only with mild drop to 12.6 on the morning labs -Check CBC again now stat -Hold all antiplatelets and anticoagulation and when safe to restart once GI bleeding is resolved, would only restart aspirin and Eliquis as per cardiology recommendation -Advance diet to full liquids and can advance as tolerated as per GI recommendations -No need for IV PPI as this is a lower GI bleed-convert IV back to his home dosing of p.o. twice daily Protonix CTAP as noted with evidence of aortoiliac stent and AAA repair and chronic bladder outlet obstruction with prostamegaly, no bowel issues CHADS VASC is 4 -Appreciate GI consultation -Treating with mesalamine for UC, holding prednisone -Treating with ganciclovir IV for now for CMV infection, awaiting CMV titer in the serum, and infectious disease recommends starting valganciclovir twice daily x21 days at the time of discharge (our pharmacy does not carry this medication here) -Follow CBC again in the morning and transfuse as needed (2) Prostate tumor: Recent MRI of the prostate shows likely prostate cancer Pt will need a bx and therefore need to be off of anticoagulation for this -Continue Flomax Follow-up with urology after discharge (3) Atrial fibrillation: Is bradycardic at times -Continue home metoprolol 50 mg p.o. twice daily -Holding Eliquis as above -Monitoring on telemetry (4) Hyperlipidemia: -Can restart statin (5) Diabetes mellitus type II, controlled: Holding metformin s/p IV contrast Blood sugars here have been well controlled SSI PRN (6) Abdominal aortic aneurysm: Has graft in place -Was on aspirin and Plavix apparently although only Plavix is listed on her med rec from previous -Holding antiplatelets for now -Continue statin (7) Chronic obstructive pulmonary disease: No acute issues Continue albuterol as needed, Advair which should be twice daily but is only listed as once daily (8) Benign prostatic hyperplasia with lower urinary tract symptoms: As above, with likely prostate cancer, prostamegaly seen on CT of the abdomen/pelvis -Follows with urology -Continue Flomax Watch for urinary retention (9) HTN (hypertension): Blood pressures on the low side -Hold amlodipine for tomorrow -Continue metoprolol tartrate 50 mg p.o. 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 He has not had any more rectal bleeding during the daytime, however the nurse did contact me around 1850 and let me know that he had a bowel movement with a moderate amount of blood and clots. He denies any abdominal pain. He denies chest pain or shortness of breath. Denies headache. He reports he feels lightheaded at times. I discussed his case with the mattress filling machine tender. Apparently, he was taking aspirin, Plavix, and Eliquis since discharge although I cannot find aspirin on the discharge med rec. Telemetry with atrial fibrillation with rates in the 40s to 80s Review of Systems Review of Systems: All systems reviewed & are unremarkable except as noted in HPI & below Physical Exam Constitutional: average body habitus; no acute distress Sitting in a chair ENMT: external ear and nose normal, oropharynx normal Neck: trachea midline, no thyromegaly Respiratory: normal respiratory effort, lungs clear to auscultation Cardiovascular: Rate/Rhythm: + bradycardic and + irregularly irregular Heart Sounds: no murmur Gastrointestinal (Abdomen): normal bowel sounds, soft, nontender, no hepatosplenomegaly Musculoskeletal: Extremities: extremities normal to inspection; no cyanosis and no clubbing Skin: no rashes, warm and dry Neurologic: moves all extremities and awake; no focal motor deficits Psychiatric: A+Ox3, euthymic affect Results & Data Vital Signs (Past 12 Hours) Vital Signs Temp Pulse Pulse Resp BP BP Pulse Ox 11/18/18 15:24 36.4 C L 67 16 96/57 L 96 11/18/18 11:53 36.6 C 81 18 112/69 96 11/18/18 08:00 66 11/18/18 07:37 36.5 C 65 20 125/82 93 Laboratory Results 11/18/18 11/18/18 11/18/18 Range/Units 19:00 16:35 11:36 WBC Pending (4.8-10.8) K/uL RBC Pending (4.7-6.1) M/uL Hgb Pending (14.0-18.0) g/dL Hct Pending (42-52) % MCV Pending (80-100) fL MCH Pending (25-34) pg MCHC Pending (32-36) g/dL RDW Std Deviation (36.4-46.3) fL RDW Coeff of Kayy (11.5-14.5) % Plt Count Pending (130-400) K/uL MPV (7.4-10.4) fL Immature Gran % (Auto) % Neut % (Auto) % Lymph % (Auto) % Dundy % (Auto) % Eos % (Auto) % Baso % (Auto) % Immature Gran # (Auto) (0.00-0.02) K/uL Neut # (Auto) (1.4-6.5) K/uL Lymph # (Auto) (1.2-3.4) K/uL Dundy # (Auto) (0.11-0.59) K/uL Eos # (Auto) (0-0.5) K/uL Baso # (Auto) (0-0.2) K/uL Sodium (136-145) mmol/L Potassium (3.5-5.1) mmol/L Chloride (98-107) mmol/L Carbon Dioxide (21-32) mmol/L Anion Gap (3-11) BUN (7-18) mg/dl Creatinine (0.6-1.4) mg/dl Est Cr Clr Drug Dosing ml/min Est GFR ( Amer) Est GFR (Non-Af Amer) BUN/Creatinine Ratio (10-20) Glucose (70-99) mg/dl POC Glucose 106 H 79 (70-99) Calcium (8.5-10.1) mg/dl 11/18/18 11/18/18 11/18/18 Range/Units 07:17 05:15 05:15 WBC 9.75 (4.8-10.8) K/uL RBC 4.71 (4.7-6.1) M/uL Hgb 12.6 L (14.0-18.0) g/dL Hct 39.7 L (42-52) % MCV 84.3 (80-100) fL MCH 26.8 (25-34) pg MCHC 31.7 L (32-36) g/dL RDW Std Deviation 48.2 H (36.4-46.3) fL RDW Coeff of Kayy 15.7 H (11.5-14.5) % Plt Count 275 (130-400) K/uL MPV 9.9 (7.4-10.4) fL Immature Gran % (Auto) 0.4 % Neut % (Auto) 61.3 % Lymph % (Auto) 30.2 % Dundy % (Auto) 7.5 % Eos % (Auto) 0.5 % Baso % (Auto) 0.1 % Immature Gran # (Auto) 0.04 H (0.00-0.02) K/uL Neut # (Auto) 5.98 (1.4-6.5) K/uL Lymph # (Auto) 2.94 (1.2-3.4) K/uL Dundy # (Auto) 0.73 H (0.11-0.59) K/uL Eos # (Auto) 0.05 (0-0.5) K/uL Baso # (Auto) 0.01 (0-0.2) K/uL Sodium 140 (136-145) mmol/L Potassium 4.1 (3.5-5.1) mmol/L Chloride 105 (98-107) mmol/L Carbon Dioxide 31 (21-32) mmol/L Anion Gap 4.0 (3-11) BUN 16 (7-18) mg/dl Creatinine 0.91 (0.6-1.4) mg/dl Est Cr Clr Drug Dosing 72.8 ml/min Est GFR ( Amer) 99.3 Est GFR (Non-Af Amer) 85.7 BUN/Creatinine Ratio 17.3 (10-20) Glucose 93 (70-99) mg/dl POC Glucose 90 (70-99) Calcium 8.3 L (8.5-10.1) mg/dl 11/17/18 Range/Units 20:09 WBC (4.8-10.8) K/uL RBC (4.7-6.1) M/uL Hgb (14.0-18.0) g/dL Hct (42-52) % MCV (80-100) fL MCH (25-34) pg MCHC (32-36) g/dL RDW Std Deviation (36.4-46.3) fL RDW Coeff of Kayy (11.5-14.5) % Plt Count (130-400) K/uL MPV (7.4-10.4) fL Immature Gran % (Auto) % Neut % (Auto) % Lymph % (Auto) % Dundy % (Auto) % Eos % (Auto) % Baso % (Auto) % Immature Gran # (Auto) (0.00-0.02) K/uL Neut # (Auto) (1.4-6.5) K/uL Lymph # (Auto) (1.2-3.4) K/uL Dundy # (Auto) (0.11-0.59) K/uL Eos # (Auto) (0-0.5) K/uL Baso # (Auto) (0-0.2) K/uL Sodium (136-145) mmol/L Potassium (3.5-5.1) mmol/L Chloride (98-107) mmol/L Carbon Dioxide (21-32) mmol/L Anion Gap (3-11) BUN (7-18) mg/dl Creatinine (0.6-1.4) mg/dl Est Cr Clr Drug Dosing ml/min Est GFR ( Amer) Est GFR (Non-Af Amer) BUN/Creatinine Ratio (10-20) Glucose (70-99) mg/dl POC Glucose 122 H (70-99) Calcium (8.5-10.1) mg/dl PG Care Time/CCT Total # of Minutes Spent Total Time Spent with Patient: Total time spent is greater than 50% in coordination of care (as documented) at patient's floor/unit and/or counseling patient: (1) GI bleed GI bleed type/associated pathology: unspecified gastrointestinal hemorrhage type Qualified Code(s): K92.2 - Gastrointestinal hemorrhage, unspecified (2) Atrial fibrillation Atrial fibrillation type: unspecified Qualified Code(s): I48.91 - Unspecified atrial fibrillation (3) Leukocytosis Leukocytosis type: unspecified Qualified Code(s): D72.829 - Elevated white blood cell count, unspecified
[2018-11-18 19:13] LABS: Hematocrit (blood only) 40.7 % (42-52); Hemoglobin 12.9 g/dL (14.0-18.0); Mean Corpuscular Volume 84.3 fL (80-100); Mean Platelet Volume 9.6 fL (7.4-10.4); Platelet Count 304 K/uL (130-400); RDW Coefficient of Variation 15.7 % (11.5-14.5); RDW Standard Deviation 48.3 fL (36.4-46.3); Red Blood Count 4.83 M/uL (4.7-6.1); White Blood Count 9.73 K/uL (4.8-10.8)
[2018-11-18 19:18] LABS: Mean Corpuscular Hgb Conc 31.7 g/dL (32-36)
[2018-11-18] MEDS: TAMSULOSIN HCL 0.4 MG CAP PO SCH (20:36)
[2018-11-18] MEDS: PANTOprazole 40 MG TAB PO SCH (21:07)
[2018-11-19] MEDS: SODIUM CHLORIDE 0.9% IV SCH (02:03)
[2018-11-19] MEDS: GANCICLOVIR SODIUM IV SCH (02:03)
[2018-11-19 05:42] LABS: Basophils # (auto) 0.01 K/uL (0-0.2); Basophils % (auto) 0.1 %; Hematocrit (blood only) 43.8 % (42-52); Hemoglobin 14.2 g/dL (14.0-18.0); Immature Granulocytes # (auto) 0.03 K/uL (0.00-0.02); Immature Granulocytes % (auto) 0.3 %; Lymphocytes # (auto) 1.97 K/uL (1.2-3.4); Lymphocytes % (auto) 19.1 %; Mean Corpuscular Hgb Conc 32.4 g/dL (32-36); Mean Corpuscular Volume 85.4 fL (80-100); Mean Platelet Volume 9.9 fL (7.4-10.4); Monocytes # (auto) 0.88 K/uL (0.11-0.59); Monocytes % (auto) 8.5 %; Neutrophils # (auto) 7.33 K/uL (1.4-6.5); Platelet Count 279 K/uL (130-400); RDW Coefficient of Variation 15.7 % (11.5-14.5); RDW Standard Deviation 49.6 fL (36.4-46.3); Red Blood Count 5.13 M/uL (4.7-6.1); White Blood Count 10.32 K/uL (4.8-10.8)
[2018-11-19 06:07] LABS: BUN Creatinine Ratio 15.7 (10-20); Calcium 8.4 mg/dl (8.5-10.1); Creatinine Clr Calc Pharmacy 72.1 ml/min; Est GFR (African American) 100.6; Est GFR (Non-African American) 86.8; Potassium 4.4 mmol/L (3.5-5.1)
[2018-11-19] MEDS: METOPROLOL TARTRATE 50 MG TAB PO SCH (08:01)
[2018-11-19] MEDS: MESALAMINE 400 MG CAPDR PO SCH (08:02)
[2018-11-19] MEDS: FLUTICASONE/SALMETEROL 250/50 (ADVAIR) 14 PUFF/1 INHALER INH SCH (08:03)
[2018-11-19] MEDS: GABAPENTIN 600 MG TAB PO SCH (08:03)
[2018-11-19] MEDS: INSULIN ASPART 100 UNITS/ML 3 ML PEN SC SCH (08:09)
[2018-11-19] MEDS: SODIUM CHLORIDE 0.9% 1000ML 1,000 ML IV SCH (08:13)
[2018-11-19] MEDS: PANTOprazole 40 MG TAB PO SCH (08:42)
[2018-11-19] MEDS ORDERED: ATORVASTATIN 20 MG TAB PO SCH (09:00)
--- NOTE | 2018-11-19 09:20 | Gastroenterology Progress Note ---
Date of Service November 19, 2018 Assessment & Plan (1) CMV colitis: Patient found to have CMV colitis complicating his ulcerative proctitis. From our perspective the patient can probably be discharged as he was started on antiviral therapy. He should follow with his regular GI provider in 2 to 4 weeks for continuity of care. Subjective I saw and evaluated the patient this morning. He notes that he had no bloody bowel movements this morning and did have a small amount of passage of red blood yesterday. He was started on therapy for cytomegalovirus yesterday afternoon after infectious disease consultation. He notes no abdominal pain no nausea or vomiting. Review of Systems Eyes: no diplopia Respiratory: no change in sputum Cardiovascular: no chest pain with activity and no dyspnea at rest Gastrointestinal: no nausea, no hematemesis and no cramping Physical Exam Eyes: PERRL, conjunctivae normal, anicteric sclerae Neck: trachea midline, no thyromegaly Respiratory: normal respiratory effort; does not use accessory muscles Cardiovascular: Rate/Rhythm: regular rate Gastrointestinal (Abdomen): normal bowel sounds, soft, nontender, no hepatosplenomegaly Results & Data Vital Signs (Past 12 Hours) Vital Signs Temp Pulse Pulse Resp BP Pulse Ox 11/19/18 07:00 36.7 C 85 20 117/62 96 11/19/18 04:55 36.6 C 77 20 122/64 95 11/18/18 23:00 36.6 C 75 19 114/63 92 11/18/18 22:20 80 Laboratory Results Laboratory Results - last 24 hr 11/18/18 11/18/18 11/18/18 11:36 16:35 19:00 WBC 9.73 RBC 4.83 Hgb 12.9 L Hct 40.7 L MCV 84.3 MCH 26.7 MCHC 31.7 L RDW Std Deviation 48.3 H RDW Coeff of Kayy 15.7 H Plt Count 304 MPV 9.6 Immature Gran % (Auto) Neut % (Auto) Lymph % (Auto) Payne % (Auto) Eos % (Auto) Baso % (Auto) Immature Gran # (Auto) Neut # (Auto) Lymph # (Auto) Payne # (Auto) Eos # (Auto) Baso # (Auto) Sodium Potassium Chloride Carbon Dioxide Anion Gap BUN Creatinine Est Cr Clr Drug Dosing Est GFR ( Amer) Est GFR (Non-Af Amer) BUN/Creatinine Ratio Glucose POC Glucose 79 106 H Calcium 11/18/18 11/19/18 11/19/18 20:04 05:21 05:21 WBC 10.32 RBC 5.13 Hgb 14.2 Hct 43.8 MCV 85.4 MCH 27.7 MCHC 32.4 RDW Std Deviation 49.6 H RDW Coeff of Kayy 15.7 H Plt Count 279 MPV 9.9 Immature Gran % (Auto) 0.3 Neut % (Auto) 71.0 Lymph % (Auto) 19.1 Payne % (Auto) 8.5 Eos % (Auto) 1.0 Baso % (Auto) 0.1 Immature Gran # (Auto) 0.03 H Neut # (Auto) 7.33 H Lymph # (Auto) 1.97 Payne # (Auto) 0.88 H Eos # (Auto) 0.10 Baso # (Auto) 0.01 Sodium 140 Potassium 4.4 Chloride 105 Carbon Dioxide 33 H Anion Gap 2.0 L BUN 14 Creatinine 0.90 Est Cr Clr Drug Dosing 72.1 Est GFR ( Amer) 100.6 Est GFR (Non-Af Amer) 86.8 BUN/Creatinine Ratio 15.7 Glucose 95 POC Glucose 104 H Calcium 8.4 L 11/19/18 07:41 WBC RBC Hgb Hct MCV MCH MCHC RDW Std Deviation RDW Coeff of Kayy Plt Count MPV Immature Gran % (Auto) Neut % (Auto) Lymph % (Auto) Payne % (Auto) Eos % (Auto) Baso % (Auto) Immature Gran # (Auto) Neut # (Auto) Lymph # (Auto) Payne # (Auto) Eos # (Auto) Baso # (Auto) Sodium Potassium Chloride Carbon Dioxide Anion Gap BUN Creatinine Est Cr Clr Drug Dosing Est GFR ( Amer) Est GFR (Non-Af Amer) BUN/Creatinine Ratio Glucose POC Glucose 84 Calcium
--- NOTE | 2018-11-19 11:12 | Discharge Summary ---
Date of Service November 19, 2018 Admission HPI Per Admitting Provider 68 y/o M who was sent to the ED by Dr. Meeks after pt called with rectal bleeding. Pt has hx of UC. He had a c-scope on 11/01 that showed UC and was put on prednisone and balsalazide. At this time, it was noted that pt was in afib, but due to bleeding and UC he was not started on any anticoagulation. There was a plan to do so once his GI status was more stable. In the meantime, pt was admitted on 11/09 with chest pain. He was seen by Dr. Arroyo and was started on eliquis. Notes from Dr. Arroyo state that pt had been on aspirin prior, but I do not see that in his admission med list from 11/09 or on a PCP visit med list from 10/10. He had taken it PRN for some chest pain prior, but not regularly. His family tells me that the aspirin was started during his recent admission. Pt has been on plavix for the last few years s/p aortoiliac stent for AAA repair. Per d/c notes, it appears there was still hesitation regarding anticoagulation due to UC status, but as pt had no pain or bleeding, he was felt to be safe to start anticoagulation in the setting of afib. Pt was d/c'd on 11/10. Family agrees with this as well. He was advised to call PCP or cardiology if he had bleeding Pt and family now report that he first noted BRBPR about 2 days s/p d/c. This has continued intermittently since that time. It is usually dark red blood or tarry stools. Pt notes it is clots mixed with some stool. He has no pain with defecation. No abd pain, n/v, hematemesis. He has been eating without issue. No blood in his urine or other bleeding/bruising. Pt has also been working with Dr. Jesus for a possible prostate cancer. He needs to have a bx, however this cannot be done while he is on anticoagulation. Family states there is no clear plan on how to approach this given afib, UC, anticoagulation issues and they are frustrated that his bx has not been done yet given they were told it was "50% chance" that this mass is cancer. Mass was noted on MRI on 7/1. Principal Diagnosis Rectal bleeding, CMV Colitis, Ulcerative proctitis Discharge Exam Constitutional average body habitus; no acute distress ENMT external ear and nose normal, oropharynx normal Neck trachea midline, no thyromegaly Respiratory normal respiratory effort, lungs clear to auscultation Cardiovascular Rate/Rhythm: + bradycardic and + irregularly irregular Heart Sounds: no murmur Gastrointestinal (Abdomen) normal bowel sounds, soft, nontender, no hepatosplenomegaly Musculoskeletal Extremities: extremities normal to inspection; no cyanosis and no clubbing Skin no rashes, warm and dry Neurologic moves all extremities and awake; no focal motor deficits Psychiatric A+Ox3, euthymic affect Discharge Data Allergies Allergy/AdvReac Type Severity Reaction Status Date / Time Cipro Allergy Severe hives Unverified 04/28/17 10:01 azithromycin Allergy Intermediate Hives Verified 11/17/18 13:12 ciprofloxacin Allergy Intermediate hives Verified 11/17/18 13:12 mivacurium Allergy Intermediate HIVES Verified 11/17/18 13:12 Consultations Cardiology Gastroenterology Routine Infectious Diseases Ordered Studies 11/17/18 12:43 CT abd pelvis IV con only Stat Hospital Course (1) GI bleed: Likely related to ulcerative proctitis, CMV infection of the colon, in the setting of aspirin, Plavix, and Eliquis use Is improved, had some rectal bleeding on the second evening of his stay but hgb actually went up since then to 14 -continue to hold all antiplatelets and anticoagulation and when safe to restart once GI bleeding is resolved, would only restart aspirin and Eliquis as per cardiology recommendation -continue low fiber diet on discharge CTAP as noted with evidence of aortoiliac stent and AAA repair and chronic bladder outlet obstruction with prostamegaly, no bowel issues CHADS VASC is 4 -Appreciate GI consultation -continue home balsalazide on dc for UC, prednisone was stopped -Treated with ganciclovir IV for CMV colitis infection, awaiting CMV titer in the serum, and infectious disease recommends starting valganciclovir twice daily x21 days at the time of discharge -Follow CBC as an outpt if has any further bleeding (2) Prostate tumor: Recent MRI of the prostate shows likely prostate cancer Pt will need a bx and therefore need to be off of anticoagulation for this -Continue Flomax Follow-up with urology after discharge (3) Atrial fibrillation: Is bradycardic at times -Continue home metoprolol 50 mg p.o. twice daily -Holding Eliquis as above Follow up with Cardiology after discharge within 1-2 weeks (4) Hyperlipidemia: -Cont statin (5) Diabetes mellitus type II, controlled: held metformin s/p IV contrast while here Blood sugars here have been well controlled -restart metformin on discharge (6) Abdominal aortic aneurysm: Has graft in place -Was on aspirin and Plavix apparently although only Plavix is listed on her med rec from previous -continue holding antiplatelets as above and would only restart ASA as per Cardio recommendations when safe from GI standpoint -Continue statin (7) Chronic obstructive pulmonary disease: No acute issues Continue albuterol as needed, Advair which should be twice daily but is only listed as once daily (8) Benign prostatic hyperplasia with lower urinary tract symptoms: As above, with likely prostate cancer, prostamegaly seen on CT of the abdomen/pelvis -Follows with urology -Continue Flomax Watch for urinary retention (9) HTN (hypertension): Blood pressures on the low side -decrease amlodipine to 5mg daily down from 10 on discharge -Continue metoprolol tartrate 50 mg p.o. twice daily (10) Neuropathy: Stable -Continue gabapentin (11) CMV colitis: On IV ganciclovir as above, converting to p.o. valganciclovir upon discha rge x21 days CMV serum titers pending CMV stain on rectal biopsy is positive Appreciate ID and GI recommendations -f/u with GI (12) Ulcerative proctitis: Treating with balsalazide as above Prednisone has been discontinued due to GI bleeding (13) Leukocytosis: Was likely due to prednisone use recently as an outpatient for ulcerative proctitis -Holding prednisone - leukocytosis is now resolved (14) DVT prophylaxis: SCDs only given bleeding Disposition-stable for dc to home Total Time Total Time Spent Total Time Spent (In Minutes): >30 min Total Time Includes: Examination of the Patient, Discharge Planning, Medication Reconciliation and Communication With Other Providers (Cardiology) Discharge Plan Discharge Items Patient Disposition: Home - Self-Care Reason For Visit: RECTAL BLEEDING Discharge Diagnosis: Rectal Bleeding, Ulcerative proctitis, CMV Colitis Condition: Good Discharge Goals: Decrease discomfort, Diagnostic testing, Improve disease control, Learn about illness and Therapeutic intervention Activity: Resume your previous activity Bathing: No limitations Non-emergency contact: Primary Care Provider, [employer] and [employer] troenterologist Call non-emergency contact if: you have any medication questions, your symptoms worsen, you have a fever and your temperature is above 100.5 Follow-up/Referrals: Enrique Meeks, [Physician] - (Please keep your follow up appointment with Margo Prajapati as scheduled. ) Lupe Weinstein MD [Primary Care Provider] - (Please call for a hospital follow up appointment within 1 week after discharge. ) Diet: Carb Consistent or DM2 and Low Fiber Addtl Provider Instructions: You were admitted with rectal bleeding secondary to your known ulcerative proctitis and a viral infection of the colon called Cytomegalovirus (CMV). Your blood thinners were all stopped-DO NOT TAKE ANY ASPIRIN, PLAVIX (clopidroge l), OR ELIQUIS until your doctor tells you it is safe to do so. You will need to take an antibiotic called VALGANCICLOVIR 900mg by mouth twice daily x 3 weeks for the CMV infection. If you develop further bleeding, please call your PCP or the GI doctor and they can advise you on what to do. If it is a small amount, you may not need to return necessarily to the hospital. If it is a large amount or you feel chest pain, shortness of breath, or dizziness, please return to the hospital. Your blood pressure was on the lower side while you were here and your amlodipine dose was cut in half down to 5mg daily. Please follow up with your GI provider as scheduled, and your primary care provider within 1-2 weeks. You should also follow up with your [employer] Pe[employer] Operator within 2 weeks to let them know you were taken off your blood thinners for now. Prescriptions: New valganciclovir 450 mg tablet 900 mg PO BID 21 Days Qty: 84 RF: 0 Continued albuterol sulfate 90 mcg/actuation HFA aerosol inhaler 2 puff INHALATION Q6H PRN (Reason: Wheezing) Qty: 8 RF: 3 pantoprazole 40 mg tablet,delayed release (DR/EC) 40 mg PO BID RF: 0 fluticasone propion-salmeterol [Advair Diskus] 250-50 mcg/dose blister with device 1 inh INHALATION QAM Qty: 14 RF: 5 Combivent Respimat 20-100 mcg/actuation mist 1 puff INHALATION QID PRN (Reason: COPD) Qty: 4 RF: 3 gabapentin 600 mg tablet 600 mg PO TID Qty: 90 RF: 5 sucralfate 1 gram tablet 1 gm PO BID PRN (Reason: REFLUX) RF: 0 sennosides [senna] 8.6 mg tablet 8.6 mg PO BID PRN (Reason: Constipation) RF: 0 tamsulosin 0.4 mg capsule 0.4 mg PO HS RF: 0 balsalazide 750 mg capsule 2,250 mg PO TID Qty: 270 RF: 5 meclizine 25 mg tablet 25 mg PO TID PRN (Reason: dizziness or vertigo) RF: 0 atorvastatin 20 mg tablet 20 mg PO DAILY RF: 0 metoprolol tartrate 50 mg Tablet 50 mg PO BID Qty: 60 RF: 0 metformin 500 mg tablet 500 mg PO BID RF: 0 Changed amlodipine 10 mg tablet 5 mg PO QAM Qty: 0 RF: 0 Discontinued clopidogrel 75 mg Tablet 75 mg PO QAM RF: 0 Eliquis 5 mg Tablet 5 mg PO BID Qty: 60 RF: 0 aspirin [Adult Low Dose Aspirin] 81 mg tablet,delayed release (DR/EC) 81 mg PO QAM RF: 0 Stand-Alone Forms: [facility] Discharge Orders: Discharge Order (Routine); Ordered 11/19/18 Ordered By: Isamar Resendiz Admission Data Admit Date/Time: 11/17/18 14:52 Attending Provider: Isamar Resendiz Admit Provider: Chantal Lucas Primary Care Provider: Lupe Weinstein Other Providers: Chantal Lucas ; Eliazar Arroyo ; Enrique Meeks ; Viji Pierce Service: Telemetry Medical Other Pending Studies at Discharge: Yes (CMV serum titer)
[2018-11-21 09:49] LABS: CMV DNA Qnt Real Time PCR <200 IU/mL (<200); CMV DNA Quant PCR <2.30 log IU/mL (<2.30)
== END 2018-11-19 12:45 | disposition home or self-care (01) | DRG 386 ==
LOC: ED 12:23 → SUATTDRO 14:52 → 2W 14:52
DX: Z79.82 Long term (current) use of aspirin; Z91.81 History of falling; K51.911 Ulcerative colitis, unspecified with rectal bleeding; I10 Essential (primary) hypertension; Z79.02 Long term (current) use of antithrombotics/antiplatelets; Z79.84 Long term (current) use of oral hypoglycemic drugs; Z79.899 Other long term (current) drug therapy; T38.0X5A Adverse effect of glucocorticoids and synthetic analogues, initial encounter; B25.8 Other cytomegaloviral diseases; D72.829 Elevated white blood cell count, unspecified; N40.0 Benign prostatic hyperplasia without lower urinary tract symptoms; E11.40 Type 2 diabetes mellitus with diabetic neuropathy, unspecified; I48.91 Unspecified atrial fibrillation; F32.9 Major depressive disorder, single episode, unspecified; E78.5 Hyperlipidemia, unspecified; J44.9 Chronic obstructive pulmonary disease, unspecified; K51.211 Ulcerative (chronic) proctitis with rectal bleeding; C61 Malignant neoplasm of prostate

== ENCOUNTER 2019-03-08 08:52 | Inpatient (IN) ==
--- NOTE | 2019-02-28 12:59 | PAT Medication Instructions ---
Medication Instructions Date of Service February 28, 2019 Home Medications Medication Instructions Recorded albuterol sulfate HFA 90 2 puff INHALATION Q6H PRN #8 gm 11/28/18 mcg/actuation aerosol inhaler fluticasone 250 mcg-salmeterol 50 1 inh INHALATION QAM #14 ea 11/28/18 mcg/dose blistr powdr for inhalation gabapentin 600 mg tablet 600 mg PO TID #90 tab 11/28/18 blood-glucose meter #1 ea 12/06/18 meclizine 25 mg tablet See Rx Instructions PO TID PRN #30 01/22/19 tab metformin 500 mg tablet 500 mg PO BID #180 tab 01/22/19 pantoprazole 40 mg tablet,delayed 40 mg PO BID #180 tab 02/09/19 release balsalazide 750 mg capsule 2,250 mg PO TID #270 cap 02/20/19 albuterol sulfate HFA 90 mcg/actuation aerosol inhaler 2 puff INHALATION Q6H PRN #8 gm 11/28/18 [Rx Confirmed 02/26/19] fluticasone 250 mcg-salmeterol 50 mcg/dose blistr powdr for inhalation 1 inh INHALATION QAM #14 ea 11/28/18 [Rx Confirmed 02/26/19] gabapentin 600 mg tablet 600 mg PO TID #90 tab 11/28/18 [Rx Confirmed 02/26/19] amlodipine 5 mg tablet 5 mg PO QAM tab 01/19/19 [History Confirmed 02/26/19] ipratropium 20 mcg-albuterol 100 mcg/actuation mist for inhalation 1 puff INHALATION QID PRN gm 01/19/19 [History Confirmed 02/26/19] sucralfate 1 gram tablet 1 gm PO BID PRN 01/19/19 [History Confirmed 02/26/19] tamsulosin 0.4 mg capsule 0.4 mg PO HS 01/19/19 [History Confirmed 02/26/19] meclizine 25 mg tablet See Rx Instructions PO TID PRN #30 tab 01/22/19 [Rx Confirmed 02/26/19] metformin 500 mg tablet 500 mg PO BID #180 tab 01/22/19 [Rx Confirmed 02/26/19] pantoprazole 40 mg tablet,delayed release 40 mg PO BID #180 tab 02/09/19 [Rx Confirmed 02/26/19] balsalazide 750 mg capsule 2,250 mg PO TID #270 cap 02/20/19 [Rx Confirmed 02/26/19] atorvastatin 20 mg PO QAM 02/26/19 [History Confirmed 02/26/19] ASK your prescriber and surgeon balsalazide 750 mg capsule 2,250 mg PO TID DO NOT take the morning of surgery sucralfate 1 gram tablet 1 gm PO BID PRN metformin 500 mg tablet 500 mg PO BID Take morning of surgery With a small sip of water, OTHERWISE NOTHING TO EAT OR DRINK AFTER MIDNIGHT: albuterol sulfate HFA 90 mcg/actuation aerosol inhaler 2 puff INHALATION Q6H PRN (use if needed; please bring with you to hospital day of surgery if possible) fluticasone 250 mcg-salmeterol 50 mcg/dose blistr powdr for inhalation 1 inh INHALATION QAM gabapentin 600 mg tablet 600 mg PO TID amlodipine 5 mg tablet 5 mg PO QAM ipratropium 20 mcg-albuterol 100 mcg/actuation mist for inhalation 1 puff INHALATION QID PRN (if needed) meclizine 25 mg tablet See Rx Instructions PO TID PRN (if needed) pantoprazole 40 mg tablet,delayed release 40 mg PO BID atorvastatin 20 mg PO QAM Other Notes If you have any questions please call us at [phone] or [phone] or [phone] or [phone]
--- NOTE | 2019-02-28 14:24 | Anesthesiology Consultation ---
Date of Service February 28, 2019 Assessment & Plan (1) Encounter for pre-operative examination: - Awaiting review preop testing (labs). - Awaiting EKG done 02/28/19 ([facility] [place] cardiology). - New onset a. fib after after colonoscopy 11/01/18 at [facility]. Now established with cardiology/seen by cardiology for evaluation on 02/28/19: per cardiology, patient poor historian/unsure if patient on beta shira (per cardiology, will have patient continue as he is doing and do not recommend anticoagulation at this time in light of upcoming prostate surgery (t/c anticoagulation and ASA after surgery). Surgeon office made aware of cardiology office/advised for them to contact cardiology if anything further needed from them from their perspective. Chart Review Chart Review: Patient seen in Pre Admission Testing Teaching & Discussion Pre-Anesthesia Teaching/Discussion Notes: Instructed NPO after midnight before surgery,except medications with 15 cc of water. Medication instructions provided according to the PAT guidelines. History Surgery Operation Date: 03/08/19 10:15 Proposed Procedures p Robotic Assisted Laparoscopic Radical Retropubic Prostatectomy, Possible Open, Possible Pelvic Lymph Node Disection, Possible Suprapubic Tube Placement - Robin Amaro MD Height/Weight Height: 5 ft 9 in Weight: 70.1 kg Allergies Allergy/AdvReac Type Severity Reaction Status Date / Time Cipro Allergy Severe hives Unverified 04/28/17 10:01 azithromycin Allergy Intermediate dizzy, Verified 02/28/19 13:35 vomitting ciprofloxacin Allergy Intermediate dizzy, Verified 02/28/19 13:35 vomitting Medications Home Medications Medication Instructions Recorded Confirmed Last Taken albuterol sulfate HFA 90 2 puff INHALATION Q6H PRN #8 gm 11/28/18 02/28/19 Unknown mcg/actuation aerosol inhaler fluticasone 250 mcg-salmeterol 50 1 inh INHALATION QAM #14 ea 11/28/18 02/28/19 Unknown mcg/dose blistr powdr for inhalation gabapentin 600 mg tablet 600 mg PO TID #90 tab 11/28/18 02/28/19 Unknown blood-glucose meter #1 ea 12/06/18 02/28/19 Unknown amlodipine 5 mg tablet 5 mg PO QAM tab 01/19/19 02/28/19 Unknown ipratropium 20 mcg-albuterol 100 1 puff INHALATION QID PRN gm 01/19/19 02/28/19 Unknown mcg/actuation mist for inhalation sucralfate 1 gram tablet 1 gm PO BID PRN 01/19/19 02/28/19 Unknown meclizine 25 mg tablet See Rx Instructions PO TID PRN #30 01/22/19 02/28/19 Unknown tab metformin 500 mg tablet 500 mg PO BID #180 tab 01/22/19 02/28/19 Unknown pantoprazole 40 mg tablet,delayed 40 mg PO BID #180 tab 02/09/19 02/28/19 Unknown release balsalazide 750 mg capsule 2,250 mg PO TID #270 cap 02/20/19 02/28/19 Unknown atorvastatin 20 mg PO QAM 02/26/19 02/28/19 Unknown metoprolol tartrate 5 mg PO 02/28/19 02/28/19 Unknown Past Medical History Medical History Benign prostatic hyperplasia with lower urinary tract symptoms Atrial fibrillation following with Dr. Arroyo Avascular necrosis Pulmonary nodules Hiatal hernia Hearing loss hearing impaired, uses aide in Right. Deaf Left ear. Generalized osteoarthritis of multiple sites Diverticulosis of colon Disc degeneration, lumbar Diabetic neuropathy Chronic obstructive pulmonary disease Chronic cerebral ischemia denies AAA (abdominal aortic aneurysm) s/p repair- previously on Plavix (discontinued as patient had rectal bleeding/rectal bleeding since resolved- felt related to CMV) Diabetes mellitus, type 2 niddm GERD (gastroesophageal reflux disease) controlled Hyperlipidemia Kidney stones Prostate cancer Ulcerative colitis Exercise / Class Metabolic Activity III < 4 Walking/Shop/Light housework Past Family History Family History Brother Family history of diabetes mellitus FHx: prostate cancer Sister Family history of diabetes mellitus Breast cancer Family/Other Family history of diabetes mellitus nieces/nephews Father Lung cancer Sister Myocardial infarction, Onset Age: 66 [place] happened week of 11/10/18 Other No family history of adverse response to anesthesia Past Surgical History Surgical History History of AAA (abdominal aortic aneurysm) repair History of colonoscopy History of lithotripsy History of prostate biopsy History of tooth extraction all teeth removed Past Anesthesia History No Family Hx of Anesthesia Complications and Other Patient told elevated HR noted after colonoscopy 11/01/18 at [facility]- noted to be in new-onset a. fib (rate controlled). Patient now established with cardiology/ evaluated by cardiology 02/28/19. Social History Smoking Status: Former smoker tobacco type: cigarettes Do You Dip or Chew Tobacco: No Smoking End Date: Quit 2006 Hx Alcohol Use: No Hx Substance Use: No substance use type: does not use Review of Systems Patient denies chest pain, shortness of breath, wheezing, palpitations. Physical Exam Vital Signs VITALS BP 149/73 P 73 TEMP SP02 98%RA RESP 16 PHYSICAL Full neck and c-spine range of motion. Full TMJ range of motion. TMD 3 finger breaths Mallampati Score 1 Dentition: no upper teeth Lungs: clear throughout to auscultation Cardiac: regular rate, irregular rhythm, no murmurs noted Spine: normal Carotid arteries: negative bruit Extremities: no edema Testing Laboratory Results 10/19/18 HGBA1C 6.5% Electrocardiogram Date: 11/17/18 A. fib at 60bpm. Chest X-Ray Date: 11/09/18 The heart is enlarged and there is atherosclerotic calcification of the thoracic aorta. The pulmonary vasculature is non-congested. Emphysema and chronic interstitial thickening are similar to previous. No airspace consolidation or pleural effusion is identified. There is bibasilar scarring/atelectasis. No pneumothorax is seen. The skeletal structures are osteopenic. There are healed left-sided rib fractures. Cardiomegaly and emphysema with no acute cardiopulmonary abnormality. Stress Test Date: 11/10/18 Type: exercise Negative stress ECHO/EKG for ischemia at 118% MPHR. 4.4 METS. EF 55-60%. Mild biatrial enlargement. Mild AI/MR/TR. Diastolic dysfunction. Mild cLVH. Basal septum thickened and angulated consistent with sigmoid septum.
[2019-02-28 16:17] LABS: Appearance Urine Clear (Clear); Basophils # (auto) 0.01 K/uL (0-0.2); Basophils % (auto) 0.2 %; Bilirubin Urine Negative (Negative); Blood Urine Negative (Negative); Color Urine Yellow; Eosinophils # (auto) 0.16 K/uL (0-0.5); Glucose Urine UA Negative (Negative); Hematocrit (blood only) 38.5 % (42-52); Hemoglobin 12.5 g/dL (14.0-18.0); Ketones Urine Negative (Negative); Leukocyte Esterase Urine Negative (Negative); Lymphocytes # (auto) 2.06 K/uL (1.2-3.4); Lymphocytes % (auto) 38.3 %; Mean Corpuscular Hemoglobin 28.7 pg (25-34); Mean Corpuscular Hgb Conc 32.5 g/dL (32-36); Mean Corpuscular Volume 88.5 fL (80-100); Mean Platelet Volume 10.2 fL (7.4-10.4); Monocytes # (auto) 0.44 K/uL (0.11-0.59); Monocytes % (auto) 8.2 %; Neutrophils # (auto) 2.71 K/uL (1.4-6.5); Neutrophils % (auto) 50.3 %; Nitrite Urine Negative (Negative); Platelet Count 248 K/uL (130-400); Protein Urine Negative (Negative); RDW Coefficient of Variation 15.4 % (11.5-14.5); RDW Standard Deviation 50.3 fL (36.4-46.3); Red Blood Count 4.35 M/uL (4.7-6.1); Specific Gravity Urine 1.013 (1.000-1.030); Urobilinogen Urine Negative (Negative); White Blood Count 5.38 K/uL (4.8-10.8); pH Urine 6.5 (4.5-7.5)
[2019-02-28 16:23] LABS: BUN Creatinine Ratio 14.5 (10-20); Calcium 8.8 mg/dl (8.5-10.1); Creatinine Clr Calc Pharmacy 69.1 ml/min; Est GFR (African American) 88.6; Est GFR (Non-African American) 76.5; Potassium 4.4 mmol/L (3.5-5.1)
[~2019-03-08 08:52] MED LIST changes: +ACETAMINOPHEN 1000 MG/100 ML IV IV SCH; -ALBU0.633 INH; -AMLO-110 PO; +CEFAZOLIN 2000MG 2,000 MG/15 ML SYR IV SCH; -CLOP1TAB5 PO; -CLZ750 PO; -CRFL PO; -GABA-113 PO; -GLC/500 PO; +HEPARIN SOD (PORCINE) 5,000 UNITS/ML VIAL IV SCH; -IPRA1AER2 INH; +LACTATED RINGER'S 1,000 ML IV SCH; -PANT1TAB3 PO; -VNTHFA/IN INH
[2019-03-08] MEDS ORDERED: MIDAZOLAM HCL 1 MG/ML 2ML VIAL ONE (08:57)
[2019-03-08] MEDS ORDERED: fentaNYL citrate 100 MCG/2 ML VIAL ONE ×3 (08:57→14:17)
[2019-03-08] MEDS ORDERED: HYDROmorphone INJ 1 MG/ML SYRINGE IV PRN ×2 (10:25→16:15)
[2019-03-08] MEDS ORDERED: ATROPINE SULFATE 0.1 MG/ML 10ML SYR IV PRN (10:25)
[2019-03-08] MEDS ORDERED: fentaNYL citrate 100 MCG/2 ML VIAL IV PRN (10:25)
[2019-03-08] MEDS ORDERED: ePHEDrine sulfate 50 MG/ML AMP IV PRN (10:25)
--- NOTE | 2019-03-08 10:39 | History & Physical Bridge Note ---
Date of Service March 08, 2019 History & Physical Bridge Note I have examined the patient, reviewed the History & Physical and in the interval since the performance of the History & Physical I have noted the following changes of clinical significance: no changes noted
[2019-03-08] MEDS ORDERED: BUPIVACAINE 0.5 % 5 MG/1 ML MPF 30ML VIAL ONE (11:14)
[2019-03-08] MEDS ORDERED: PROPOFOL IV EMULSION 10 MG/ML 20 ML VIAL IV ONE (11:37)
[2019-03-08] MEDS ORDERED: DEXAMETHASONE SOD INJ 4 MG/ML VIAL ONE (11:37)
[2019-03-08] MEDS ORDERED: LIDOCAINE HCL 2% 2 ML VIAL/AMP(20MG/ML) INFIL ONE (11:37)
[2019-03-08] MEDS ORDERED: ONDANSETRON INJ 2 MG/ML 2 ML VIAL ONE (11:37)
[2019-03-08] MEDS ORDERED: ROCURONIUM BROMIDE 10 MG/ML 5 ML VIAL ONE (11:37)
[2019-03-08] MEDS ORDERED: raNITIdine HCl 25 MG/ML VIAL IV ONE (11:59)
[2019-03-08] MEDS ORDERED: SURGICEL ABSORB HEMOSTAT 2IN X 14IN TOP ONE (12:10)
[2019-03-08] MEDS ORDERED: METOPROLOL TARTRATE 1 MG/ML VIAL IV ONE (12:28)
[2019-03-08] MEDS ORDERED: FLOSEAL HEMOSTATIC MATRIX 10ML TOP ONE (13:00)
[2019-03-08] MEDS ORDERED: LARYING-O-JET KIT (LTA) ONE (13:05)
--- NOTE | 2019-03-08 14:45 | Operative Report ---
PG Post Operative Report Pre & Post Diagnosis Operation Date: 03/08/19 10:35 Pre-Op Diagnosis: Prostate Cancer Post-Op Diagnosis: Prostate Cancer I identified the patient and participated in the time-out.: Yes Procedure Operation Date: 03/08/19 10:35 Actual Procedures p Robotic Assisted Laparoscopic Radical Retropubic Prostatectomy, Pelvic Lymph Node Disection, Suprapubic Tube Placement - Robin Amaro MD Surgeon Robin Amaro MD Junior Legal Secretary Farnaz IBARRA Estimated Blood Loss 50 Findings Consistent with Post-Op Diagnosis Specimens Prostate plus seminal vesicles, right and left obturator nodes, periprostatic fat Description of Procedure Robot-assisted laparoscopic radical retropubic prostatectomy with bilateral obturator lymph node dissection and suprapubic tube placement. I attest to the content of the Intraoperative Record and any orders documented therein. Any exceptions are noted below.
--- NOTE | 2019-03-08 15:01 | Operative Report ---
PG Post Operative Report Pre & Post Diagnosis Operation Date: 03/08/19 10:35 Pre-Op Diagnosis: [place] 4+5 Prostate Cancer Post-Op Diagnosis: [place] 4+5 Prostate Cancer Anesthesia: General anesthesia with endotracheal intubation plus local at port sites. Drains left in place: 18 [place] silicone suprapubic tube with 10 cc of sterile water in the balloon, 16 [place] urethral Horowitz catheter with 10 cc of sterile water in the balloon, #10 MICHAEL drain in the left lower quadrant. Findings: Watertight anastomosis with good position of suprapubic tube and Horowitz catheter. Estimated blood loss: 50 cc. Specimen sent to pathology: Prostate plus seminal vesicles, right and left obturator lymph nodes, periprosthetic fat. Complications: None I identified the patient and participated in the time-out.: Yes Procedure Operation Date: 03/08/19 10:35 Actual Procedures p Robotic Assisted Laparoscopic Radical Retropubic Prostatectomy, Pelvic Lymph Node Dissection, Suprapubic Tube Placement - Robin Amaro MD Brief history: Patient is a pleasant 68-year-old male who I have seen for any new diagnosis of prostate cancer found on MRI fusion biopsy. This is noted to be high-grade with Domo 4+5 elements. After discussion of various forms of management he is decided upon a robotic prostatectomy to manage his disease. Pelvic lymph node dissection is planned. Intravenous Ancef is provided for antibiotic coverage and SCDs used for DVT prophylaxis as well as subcutaneous heparin. Intravenous Tylenol provided for perioperative analgesia. Consent r eviewed with the patient and family preoperatively today. Procedure: Patient was properly identified and brought into the operative suite after identification of appropriate consent in the chart. General anesthesia with endotracheal intubation was initiated patient was prepped and draped in the standard fashion for this procedure. Full timeout procedure was followed. All port sites were anesthetized with local prior to incision. Transverse supraumbilical incision was made and a 0 degree laparoscope was used to enter the abdomen using a visual obturator. Abdomen was insufflated to 15 mmHg. A small amount of scar tissue felt to be associated with prior incision and suprapubic area was appreciated but able to be bypassed without the need for further dissection or additional port placement. Ports were placed for a fourth arm robotic template including 2 8 mm left-sided robotic ports, one 8 mm right- sided robotic port and a 5 and 12 mm certified surgical first assistant port. Patient was placed in Trendelenburg and robot was brought in and docked. Mesh plug was noted in the left lower quadrant in the vicinity of the inguinal canal consistent with the patient's prior history of hernia repair. This did not significantly interfere with the dissection. Bladder was dropped in the midline down to the level of the pubic bone and the prostate was skeletonized. Periprostatic fat was sent for pathologic analysis. Bilateral small obturator hernias were appreciated. Endopelvic fascia was sharply entered on both sides and dissection was carried down to the level of the apex of the prostate. Dorsal vein was skeletonized and controlled using 0 Vicryl suture on a CT1 needle in a [id number] fashion. 30 degree down lens was used to skeletonize the bladder neck down to the level of the Horowitz catheter. This was then divided and catheter was used for anterior traction of the prostate. Posterior bladder neck was divided and dropped in the midline. Dissection was carried out to the level of the vas deferens and seminal vesicles. Vas deferens were circumscribed and divided. Rectum was dropped in the midline down to the level of the apex of the prostate. Vessel sealer was used to take the prostatic pedicles on both sides after skeletonizing these. Seminal vesicles were then dissected free without significant bleeding or difficulties. Lateral aspects of the prostate were dissected free up to level of the apex of the prostate. Dorsal venous complex was divided and urethra was skeletonized. Excellent urethral stump was appreciated and then divided with a Horowitz catheter in place. Remaining rectourethralis fibers were divided and prostate was brought up into the abdomen where it was placed within an Endo Catch bag for retrieval at the end of the case. Attention was then turned to the obturator lymph node dissection on both sides. This was initiated on the right-hand side where the external iliac vein, pelvic sidewall and obturator nerves were used as the boundaries of dissection. Weck clips and monopolar cautery were used to control small vessels and lymphatics as necessary. No evidence of any injury to the obturator nerve was appreciated throughout the case. After this was dissected free it was handed off through the certified surgical first assistant port for pathologic analysis. Dissection was repeated on the left-hand side but minimal tissue was able to be retrieved despite excellent emptying of the obturator fossa. This was felt to be possibly due to scarring from the patient's previous hernia repair on the side. FloSeal tissue sealant was placed within the prostate bed and the rounding machine operator fossa on both sides. Attention was then turned to the bladder neck which was noted to be relatively watertight. Circumferential running anastomosis was performed between the bladder neck and urethra using a double-armed V lock suture with excellent apposition of the 2 structures. Horowitz catheter was placed within the bladder and the bladder was distended with greater than 120 cc with no evidence of leak. Small suprapubic incision was made and a suprapubic tube set was passed under direct visualization and visualized to be entering the bladder. 18 Palauan silicone Horowitz was entered via the suprapubic tube trocar and 10 cc of sterile water were placed within the balloon. Horowitz catheter was replaced with a 16 Palauan silicone catheter with 10 cc of sterile water in the balloon. These were irrigated with return of irrigant via the other catheter and no evidence of leak. Fourth arm was removed and a #10 MICHAEL drain was brought in via the fourth arm port. This was placed within the confines of the pelvis while avoiding placing it directly over the anastomosis. Robotic instruments were removed and robot was de-docked. Excess carbon dioxide gas was removed from the abdomen. Camera was brought in via the 12 mm certified surgical first assistant port in the string to the Endo Catch bag was brought up through the supraumbilical incision. Trochars were removed and supraumbilical incision was enlarged sufficiently to allow for easy removal of the specimen bag. This was then closed using an 0 Vicryl suture on a UR 5 needle. Drains were secured in place with a 2-0 silk suture. 3-0 Vicryl was used to close the subcutaneous tissues in the supraumbilical area and 4-0 Monocryl was used to close the skin at all incisions followed by Dermabond. MICHAEL drain was placed to bulb suction and catheters placed to gravity drainage. Anesthesia was reversed and patient was transferred to the recovery room in stable condition. Follow-up CARE: Patient will be admitted to the floor for standard postoperative management. Surgeon Robin Amaro MD Sieve Maker present in case for retraction, suction, instrument and suture passage, patient positioning and general patient safety. Sieve Maker Farnaz IBARRA Estimated Blood Loss 50 Findings Consistent with Post-Op Diagnosis Specimens See above Description of Procedure See above I attest to the content of the Intraoperative Record and any orders documented therein. Any exceptions are noted below.
--- NOTE | 2019-03-08 15:28 | Anesthesiology Progress Note ---
Date of Service March 08, 2019 Anesthesia Post Procedure Vital Signs Vital Signs: Temp Pulse Pulse Resp BP Pulse Ox 03/08/19 15:20 76 16 145/99 H 96 03/08/19 15:10 69 16 151/96 H 100 03/08/19 15:00 97.7 F 90 16 143/75 H 99 03/08/19 14:51 97.7 F 16 170/99 H 95 03/08/19 10:16 98.6 F 93 H 18 163/92 H 93 Transfer of Care Handoff Completed per policy Notes Mental Status: alert / awake / arousable and participated in evaluation Patient Amnestic to Procedure: Yes Nausea / Vomiting: adequately controlled Pain: adequately controlled Airway Patency, RR, SpO2: stable & adequate BP & HR: stable & adequate Hydration State: stable & adequate Anesthetic Complications: no major complications apparent and Pt Satisfied with anesthetic care
[2019-03-08 15:56] LABS: Basophils # (auto) 0.01 K/uL (0-0.2); Basophils % (auto) 0.1 %; Eosinophils # (auto) 0.01 K/uL (0-0.5); Eosinophils % (auto) 0.1 %; Hematocrit (blood only) 40.9 % (42-52); Hemoglobin 13.1 g/dL (14.0-18.0); Immature Granulocytes # (auto) 0.03 K/uL (0.00-0.02); Immature Granulocytes % (auto) 0.3 %; Lymphocytes % (auto) 6.9 %; Mean Corpuscular Hemoglobin 28.8 pg (25-34); Mean Corpuscular Volume 89.9 fL (80-100); Monocytes % (auto) 1.7 %; Neutrophils # (auto) 10.53 K/uL (1.4-6.5); Neutrophils % (auto) 90.9 %; Platelet Count 273 K/uL (130-400); RDW Coefficient of Variation 14.9 % (11.5-14.5); RDW Standard Deviation 49.5 fL (36.4-46.3); Red Blood Count 4.55 M/uL (4.7-6.1); White Blood Count 11.58 K/uL (4.8-10.8)
[2019-03-08] MEDS ORDERED: OXYCODONE HCL IR 5 MG TAB (IMMEDIATE RELEASE) PO PRN ×2 (16:15)
[2019-03-08] MEDS ORDERED: ALBUTEROL HFA 8 GM INHALER INH PRN (16:15)
[2019-03-08] MEDS ORDERED: SUCRALFATE 1 GM TAB PO PRN (16:15)
[2019-03-08] MEDS ORDERED: IPRATROPIUM BROMIDE/ALBUTEROL respimat INH INH PRN (16:15)
[2019-03-08] MEDS ORDERED: HYDROmorphone INJ 2 MG/ML SYR/VIAL IV PRN (16:15)
[2019-03-08] MEDS ORDERED: ONDANSETRON INJ 2 MG/ML 2 ML VIAL IV PRN (16:15)
[2019-03-08 16:16] LABS: BUN Creatinine Ratio 12.4 (10-20); Calcium 8.7 mg/dl (8.5-10.1); Creatinine Clr Calc Pharmacy 54.9 ml/min; Est GFR (African American) 66.4; Est GFR (Non-African American) 57.3; Potassium 4.1 mmol/L (3.5-5.1)
[2019-03-08] MEDS ORDERED: PHARMACY GLYCEMIC MGMT CONSULT PRN (16:37)
[2019-03-08] MEDS: ACETAMINOPHEN 1,000 MG/100 ML VIAL IV SCH (17:53)
[2019-03-08] MEDS: LACTATED RINGER'S 1,000 ML IV SCH (18:00)
[2019-03-08] MEDS: CEFAZOLIN 2000MG 2,000 MG/15 ML SYR IV SCH (18:16)
[2019-03-08] MEDS: INSULIN ASPART 100 UNITS/ML 3 ML PEN SC SCH ×2 (18:50→21:18)
--- NOTE | 2019-03-08 20:28 | Hospitalist Consultation ---
Date of Consultation March 08, 2019 Assessment & Plan (1) Benign prostatic hyperplasia with lower urinary tract symptoms: S/p prostatectomy with Dr. Robin Amaro on 03/08 without any noted complications. - Patient denies pain. - Post-operative care per primary team (2) Atrial fibrillation: Known history of afib. Is not on anticoagulation until after surgery. Normally, he is self-rate controlled. - Will start metoprolol XL 25 mg PO QHS tonight to gently bring his rate down. - If his rate remains < 100 bpm could just discharge with outpatient follow up with Dr. Arroyo. - If rates increase or his BP or respiratory status change, will transfer to tele (3) Diabetes mellitus, type 2: A1c was 6.5% in 09/2018. - Glycemic pharmacist consulted by primary team (4) Chronic obstructive pulmonary disease: No breathing concerns at present. Denies any shortness of breath. - Continue home meds (5) DVT prophylaxis: Heparin BID per primary team History of Present Illness Attending Physician: Robin Amaro MD History of Present Illness 68yo M w/ hx of afib who presents as a medical consult for afib after his prostatectomy. Patient is exceptionally hard of hearing. He says that he is not in any pain, but despite shouting into his ear, he essentially just says he is "doing well" and has no issues. Per notes, he has seen Dr. Arroyo in the past and has known afib. He is not on anticoagulation due to the prostatectomy that happened today. As best as I can tell, this is a fairly new diagnosis for him, having seen Dr. Arroyo in 01/2019. His normal rates appear to be from 75-90 bpm. On my exam, his rate jumps from ~105 to 115. Allergies Allergy/AdvReac Type Severity Reaction Status Date / Time Cipro Allergy Severe hives Unverified 04/28/17 10:01 ciprofloxacin Allergy Intermediate dizzy, Verified 03/08/19 09:46 vomitting azithromycin AdvReac Intermediate dizzy, Verified 03/08/19 10:14 vomitting Home Medications Home Medications Medication Instructions Recorded Confirmed Type albuterol sulfate HFA 90 2 puff INHALATION Q6H PRN #8 gm 11/28/18 03/08/19 Rx mcg/actuation aerosol inhaler fluticasone 250 mcg-salmeterol 50 1 inh INHALATION QAM #14 ea 11/28/18 03/08/19 Rx mcg/dose blistr powdr for inhalation gabapentin 600 mg tablet 600 mg PO TID #90 tab 11/28/18 03/08/19 Rx blood-glucose meter #1 ea 12/06/18 02/28/19 Rx ipratropium 20 mcg-albuterol 100 1 puff INHALATION QID PRN gm 01/19/19 03/08/19 History mcg/actuation mist for inhalation sucralfate 1 gram tablet 1 gm PO BID PRN 01/19/19 03/08/19 History meclizine 25 mg tablet See Rx Instructions PO TID PRN #30 01/22/19 03/08/19 Rx tab metformin 500 mg tablet 500 mg PO BID #180 tab 01/22/19 03/08/19 Rx pantoprazole 40 mg tablet,delayed 40 mg PO BID #180 tab 02/09/19 03/08/19 Rx release balsalazide 750 mg capsule 2,250 mg PO TID #270 cap 02/20/19 03/08/19 Rx atorvastatin 20 mg PO QAM 02/26/19 03/08/19 History metoprolol tartrate 5 mg PO 02/28/19 02/28/19 History Patient History Medical History Benign prostatic hyperplasia with lower urinary tract symptoms Atrial fibrillation following with Dr. Arroyo Avascular necrosis Pulmonary nodules Hiatal hernia Hearing loss hearing impaired, uses aide in Right. Deaf Left ear. Generalized osteoarthritis of multiple sites Diverticulosis of colon Disc degeneration, lumbar Diabetic neuropathy Chronic obstructive pulmonary disease Chronic cerebral ischemia denies Prostate cancer AAA (abdominal aortic aneurysm) s/p repair- previously on Plavix (discontinued as patient had rectal bleeding/rectal bleeding since resolved- felt related to CMV) Diabetes mellitus, type 2 niddm GERD (gastroesophageal reflux disease) controlled Hyperlipidemia Kidney stones Ulcerative colitis Surgical History History of lithotripsy History of AAA (abdominal aortic aneurysm) repair History of colonoscopy History of prostate biopsy History of tooth extraction all teeth removed Family History Brother Family history of diabetes mellitus FHx: prostate cancer Sister Family history of diabetes mellitus Breast cancer Family/Other Family history of diabetes mellitus nieces/nephews Father Lung cancer Sister Myocardial infarction, Onset Age: 66 MT happened week of 11/10/18 Other No family history of adverse response to anesthesia Social History Preferred Language: Cymraes Communication Ability: Effective Communication Ability Comment: per niece pt has "slight trouble with comprehension",pt can sign consents Reporting Analyst Required: No Beliefs That Will Affect Care: None marital status: Current Living Situation: Spouse current occupational status: unemployed Other Information That Helps Us Care for You: No Feels Safe at Home: Yes Safety Concerns: Feels Safe At This Time Smoking Status: Former smoker Tobacco Type: cigarettes ; Do You Dip or Chew Tobacco: No ; Smoking End Date: Quit 2006 ; Second Hand Exposure: No ; Tobacco Cessation Education Requested by Patient: No Hx Alcohol Use: No Hx Substance Use: No Dental Care, Regularly: No Review of Systems Review of Systems: Other (Unable to obtain due to communication difficulties) Physical Exam Constitutional: WD/WN, vitals as above Eyes: EOM intact bilaterally; no conjunctival abnormality ENMT: external ear and nose normal, oropharynx normal Neck: trachea midline, no thyromegaly normal visual inspection Respiratory: normal respiratory effort, lungs clear to auscultation no respiratory distress Cardiovascular: Rate/Rhythm: + tachycardic and + irregularly irregular Heart Sounds: normal S1 and normal S2; no murmur Extremities: no edema Gastrointestinal (Abdomen): Inspection/Auscultation: abdomen normal to inspection; abdomen not distended Musculoskeletal: no cyanosis or clubbing, extremities motor strength 5/5 Skin: no rashes, warm and dry Neurologic: moves all extremities and awake Psychiatric: Orientation: alert, oriented to person and cooperative Results & Data Vital Signs (Past 12 Hours) Vital Signs Temp Pulse Pulse Resp BP BP Pulse Ox 03/08/19 18:12 36.6 C 108 H 18 151/80 H 96 03/08/19 17:07 36.7 C 79 16 156/78 H 100 03/08/19 16:44 89 18 147/80 H 99 03/08/19 16:19 36.8 C 75 15 131/85 100 03/08/19 15:40 36.8 C 74 16 141/80 H 97 03/08/19 15:30 36.8 C 76 16 145/84 H 97 03/08/19 15:20 76 16 145/99 H 96 03/08/19 15:10 69 16 151/96 H 100 03/08/19 15:00 36.5 C 90 16 143/75 H 99 03/08/19 14:51 36.5 C 16 170/99 H 95 03/08/19 10:16 37 C 93 H 18 163/92 H 93 PG Care Time/CCT Total # of Minutes Spent Total Time Spent with Patient: Total time spent is greater than 50% in coordination of care (as documented) at patient's floor/unit and/or counseling patient: (1) Atrial fibrillation Atrial fibrillation type: unspecified Qualified Code(s): I48.91 - Unspecified atrial fibrillation
[2019-03-08] MEDS ORDERED: METOPROLOL SUCC 25MG EXT REL TAB PO SCH (21:00)
[2019-03-08] MEDS: GABAPENTIN 600 MG TAB PO SCH (21:16)
[2019-03-08] MEDS: HEPARIN SOD 5,000 UNIT/0.5 ML VIAL SQ SCH (21:17)
[2019-03-08] MEDS: PANTOprazole 40 MG TAB PO SCH (21:17)
[2019-03-09] MEDS: ACETAMINOPHEN 1,000 MG/100 ML VIAL IV SCH ×2 (02:51→09:18)
[2019-03-09] MEDS: LACTATED RINGER'S 1,000 ML IV SCH (02:51)
[2019-03-09] MEDS: CEFAZOLIN 2000MG 2,000 MG/15 ML SYR IV SCH (04:04)
[2019-03-09 05:51] LABS: Basophils # (auto) 0.01 K/uL (0-0.2); Basophils % (auto) 0.1 %; Hematocrit (blood only) 37.5 % (42-52); Hemoglobin 11.9 g/dL (14.0-18.0); Lymphocytes # (auto) 1.46 K/uL (1.2-3.4); Lymphocytes % (auto) 16.5 %; Mean Corpuscular Hemoglobin 28.4 pg (25-34); Mean Corpuscular Hgb Conc 31.7 g/dL (32-36); Mean Corpuscular Volume 89.5 fL (80-100); Mean Platelet Volume 10.1 fL (7.4-10.4); Monocytes # (auto) 0.85 K/uL (0.11-0.59); Monocytes % (auto) 9.6 %; Neutrophils # (auto) 6.54 K/uL (1.4-6.5); Neutrophils % (auto) 73.8 %; Platelet Count 252 K/uL (130-400); RDW Coefficient of Variation 15.1 % (11.5-14.5); RDW Standard Deviation 49.3 fL (36.4-46.3); Red Blood Count 4.19 M/uL (4.7-6.1); White Blood Count 8.86 K/uL (4.8-10.8)
[2019-03-09 06:10] LABS: Estimated Average Glucose 134 mg/dl; Hemoglobin A1C 6.3 % (4.5-5.6)
[2019-03-09 06:22] LABS: BUN Creatinine Ratio 13.4 (10-20); Calcium 8.2 mg/dl (8.5-10.1); Creatinine Clr Calc Pharmacy 60.6 ml/min; Est GFR (African American) 74.8; Est GFR (Non-African American) 64.6
--- NOTE | 2019-03-09 08:22 | Urology Progress Note ---
Date of Service March 09, 2019 Assessment & Plan (1) Prostate CA: 68yo M POD #1 s/p RALRP with bilateral lymph node dissection, SP Tube placement with Dr. Amaro. Dr. Amaro at bedside to evaluate pt today as well. Progressing on pace, doing well. Appreciate hospitalist recommendations. Plan to clamp urethral catheter to encourage drainage from SP tube. If drainage from SP tube appreciated, and pt denies any abdominal distention or discomfort, plan to remove urethral catheter. Will advance diet to regular. D/C IVFs. Plan to discharge home this afternoon. Expected clinical course reviewed. Subjective 68yo M POD #1 s/p RALRP with Dr. Amaro Pt states he had an uneventful night. Pain well controlled, tolerating clear liquids without difficulty. Ambulated in halls last evening. Hospitalist recommendations appreciated given pt's hx of afib. VSS, labs reviewed- acceptable. SP tube with no output, early draining clear yellow. MICHAEL with acceptable output. Review of Systems Review of Systems: All systems reviewed & are unremarkable except as noted in HPI & below Physical Exam Constitutional: no acute distress and not ill appearing Eyes: no nystagmus ENMT: Ears: no hearing impairment Neck: trachea midline Respiratory: no respiratory distress and no cough Cardiovascular: Vessels: no JVD Chest (Breasts): Chest: normal inspection of chest Gastrointestinal (Abdomen): Inspection/Auscultation: abdomen not distended and no abdominal edema Percussion/Palpation: abdomen soft; abdomen nontender Musculoskeletal: Head/Neck/Chest: normocephalic and head atraumatic Skin: no rashes, warm and dry Abd incisions c/d/i Neurologic: awake; not confused and not obtunded Psychiatric: Orientation: alert and oriented x 3 Eye Contact: good eye contact Affect: no depressed affect Genitourinary: no CVA tenderness sp tube intact, no drainage. urethral catheter draining clear yellow, adequate amounts MICHAEL with minimal serosang Lymphatic: no lymphadenopathy and no lymphedema Results & Data Vital Signs (Past 12 Hours) Vital Signs Temp Pulse Pulse Pulse Resp BP BP 03/09/19 08:00 37 C 17 139/79 03/09/19 07:56 17 139/79 03/09/19 07:45 37 C 03/09/19 07:40 78 03/09/19 03:02 36.7 C 88 16 146/82 H 03/08/19 23:14 36.7 C 89 16 146/83 H Pulse Ox 03/09/19 08:00 94 03/09/19 07:56 94 03/09/19 07:45 03/09/19 07:40 03/09/19 03:02 91 03/08/19 23:14 94 PG Care Time/CCT Total # of Minutes Spent Total Time Spent with Patient: Total time spent is greater than 50% in coordination of care (as documented) at patient's floor/unit and/or counseling patient:
[2019-03-09] MEDS ORDERED: ATORVASTATIN 20 MG TAB PO SCH (09:00)
[2019-03-09] MEDS ORDERED: FLUTICASONE/SALMETEROL 250/50 (ADVAIR) 14 PUFF/1 INHALER INH SCH (09:00)
[2019-03-09] MEDS: INSULIN ASPART 100 UNITS/ML 3 ML PEN SC SCH ×2 (09:15→12:33)
[2019-03-09] MEDS: HEPARIN SOD 5,000 UNIT/0.5 ML VIAL SQ SCH (09:17)
[2019-03-09] MEDS: GABAPENTIN 600 MG TAB PO SCH ×2 (09:18→13:20)
[2019-03-09] MEDS: PANTOprazole 40 MG TAB PO SCH (09:18)
--- NOTE | 2019-03-09 09:35 | Pharmacy Report ---
Glycemic Control Consultation - Date of Service March 09, 2019 - Scope Scope: Glycemic Pharmacist consulted by Dr Amaro on 03/08/19 for glycemic control and to write orders per [facility], located [facility] inpatient glycemic control protocol - Objective Weight: 74.5 kg Accuchecks BSG (last 24hrs): 03/08/19 03/08/19 03/08/19 09:32 14:54 15:10 Glucose POC Glucose 99 137 H 140 H 03/08/19 03/08/19 03/08/19 15:46 17:06 20:57 Glucose 153 H POC Glucose 141 H 122 H 03/09/19 03/09/19 05:39 08:45 Glucose 103 H POC Glucose 88 Laboratory Data (last 24hrs): 03/08/19 03/09/19 15:46 05:39 Potassium 4.1 4.0 Carbon Dioxide 29 28 Anion Gap 5.0 7.0 Creatinine 1.27 1.15 Est Cr Clr Drug Dosing 54.9 60.6 HbA1c: Hemoglobin A1c 6.3 % (4.5-5.6) H 03/09/19 05:39 - Recent Pertinent Medications Outpatient Anti-diabetic Regimen: * Metformin 500mg PO BID * A1c = 6.3 % 03/09/19 Risk Factors for Insulin Resistance: * Steroids: Dexamethasone 4mg IV x1 dose yesterday in OR * Diet: Clears - Assessment & Plan Assessment & Plan: ASSESSMENT: * 68yo M POD #1 s/p RALRP with bilateral lymph node dissection, SP Tube placement with Dr. Amaro. * Type 2 diabetic well controlled on only metformin at home. * Oral agents are not recommended for inpatient use d/t drug interactions, changing PO intake, and difficulty titrating for acute hyper/hypoglycemia. ADA recommends re-initiating outpatient oral agents 1-2 days prior to discharge if/when appropriate if they were held on admission. * Will hold oral agents for admission and utilize SQ basal bolus insulin regimen which is the recommended regimen for inpatient glycemic control. * Blood sugars all at goal, patient has only required 1 unit of insulin yesterday, will discontinue CR at this time to prevent hypoglycemia. * May need to add CR back in when diet advanced, or just resume metformin at that time. PLAN FOR INPATIENT GLYCEMIC CONTROL: * Holding outpatient oral diabetes medications * Bolus insulin * NovoLog per scale ACHS or Q6hrs while NPO * Goal Range: Low 110 mg/dL - High 140 mg/dL * Correction Factor: 20 mg/dL/unit * Please note that the plan above was derived based on current level of insulin resistance and hospital stress. These recommendations are appropriate for inpatient admission only. Plan of care upon discharge will need to be reassessed to avoid potential outpatient hypo/hyperglycemia. Thank you.
--- NOTE | 2019-03-09 12:57 | Communication Note ---
Date of Service: March 09, 2019 Reviewed patient chart but did not round on patient. HR appears rate controlled per vital signs after initiation of Metoprolol 25 mg qhs. Lab work with no electrolyte abnormalities reported. Recommend continuation of Metoprolol at discharge; will need to f/u with PCP to discuss beta shira usage along with indication for anticoagulation therapy. Will sign off, pt. is medically stable for discharge.
--- NOTE | 2019-03-09 13:14 | Communication Note ---
Date of Service: March 09, 2019 Persistent atrial fibrillation: see previous hospitalist consultation note regarding plan.
--- NOTE | 2019-03-22 13:17 | Discharge Summary ---
Date of Service March 22, 2019 Admission HPI Per Admitting Provider 68-year-old male with prostate cancer who has chosen robotic prostatectomy to manage his disease. Please see H&P for further details. Admission Exam (Per Admitting) Constitutional well developed and well nourished; no acute distress Eyes eyes not dysmorphic ENMT Ears: no external ear abnormality Neck trachea midline; no anterior neck swelling Respiratory no respiratory distress and does not use accessory muscles Cardiovascular Vessels: radial pulses present Gastrointestinal (Abdomen) Inspection/Auscultation: abdomen not distended Percussion/Palpation: abdomen soft; abdomen nontender Musculoskeletal Head/Neck/Chest: normocephalic and neck supple Skin normal turgor Neurologic awake; not obtunded Psychiatric Orientation: oriented x 3 Lymphatic no lymphadenopathy Specialty Data Specialty Data Uncomplicated prostatectomy as planned. Discharge Data Consultations 03/08/19 18:38 Consult Hospitalist Routine Procedures Performed Operation Date: 03/08/19 10:35 Actual Procedures p Robotic Assisted Laparoscopic Radical Retropubic Prostatectomy, Pelvic Lymph Node Disection, Suprapubic Tube Placement - Robin Amaro MD Hospital Course (1) Prostate CA: 68yo M POD #1 s/p RALRP with bilateral lymph node dissection, SP Tube placement with Dr. Amaro. Dr. Amaro at bedside to evaluate pt today as well. Progressing on pace, doing well. Appreciate hospitalist recommendations. Plan to clamp urethral catheter to encourage drainage from SP tube. If drainage from SP tube appreciated, and pt denies any abdominal distention or discomfort, plan to remove urethral catheter. Will advance diet to regular. D/C IVFs. Plan to discharge home this afternoon. Expected clinical course reviewed. Discharge Instructions See discharge instruction list occasions for further details. Outpatient appointments confirmed.
--- NOTE | 2019-03-27 08:46 | Coding Query ---
CODING QUERY To promote full compliance with coding requirements relating to patient care, provider participation is requested in all cases of insole doubler uncertainty. Please assist us with the question(s) below: Coding Question(s): There is conflicting documentation on the H&P scanned into the record of this patient, Khadar Bailey, as there is documentation in the first paragraph of the H&P of, "Lengthy discussion held with ERICA MILLER today regarding his new diagnosis of prostate cancer.". Previous attempts to have this corrected have been unsuccessful. Please clarify below, regarding the H&P. ( X ) the H&P is for Khadar Bailey, and Erica Miller is incorrectly documented on it ( ) the H&P is for Erica Miller, and not for Khadar Bailey ( ) Other: Please specify Physician's Response(s): Thank you Aviva Roblero Principal Diagnosis: "that condition established after study, to be chiefly responsible for occasioning the admission of the patient to the hospital for care." Co-Existing Principal Diagnosis: "when two or more diagnoses equally meet the criteria for principal diagnosis as determined by the circumstances of admission, diagnostic work up, and/or therapy provided, and the Alphabetic Index, Tabular List, or another coding guideline does not provide sequencing direction, any one of the diagnoses may be sequenced first." "When the physician has documented what appears to be a current diagnosis in the body of the record, but has not included the diagnosis in the final diagnostic statement, the physician should be asked whether the diagnosis should be added." (Source Coding [facility] 2 QTR90. p3-4) [facility]
== END 2019-03-09 16:43 | disposition home health service (06) | DRG 707 ==
LOC: ASU 08:52 → 3W 14:51

== ENCOUNTER 2021-04-18 16:42 | Observation (INO) ==
--- NOTE | 2021-04-18 16:58 | Emergency Department Note ---
Impression & Plan Hallucinations, Confusion, A-fib ED Provider Note Provider: Jorge Ley MD DATE OF SERVICE: 04/18/2021 CHIEF COMPLAINT: Confusion HISTORY OF PRESENT ILLNESS: Patient is a 71-year-old gentleman history of hypertension, hyperlipidemia, diabetes, COPD, PAD, AAA status post repair, ulcerative proctitis, prior GI bleed, atrial fibrillation on Eliquis, and cardiomyopathy presenting via ambulance today after found on his neighbors porch hallucinating and talking to people. EMS report neighbors called and [id number] at the scene reports the patient sometimes gets confused when he is dehydrated. The patient himself on discussion states he is just got a little cold today. He is able to tell me his first name but is unable to tell me his birthday. He follows simple commands and denies pain. Patient denies falls. Patient is intermittently answering some questions but others he will just stare at me. He is a poor historian to events of today. Patient does states he needs to urinate and has to use the bathroom. Utilized hand-held urinal without issue with minimal assistance. REVIEW OF SYSTEMS: Limited secondary to the patient's mental status PAST MEDICAL HISTORY: As noted above MEDICATIONS: Reviewed listed home medications in the chart as the patient is unable to tell me a list of medications due to his mental status SOCIAL HISTORY: Smoker PHYSICAL EXAM: GENERAL: alert in no acute distress on stretcher, states his name is Khadar but does not know his birthday or the current year Head: normocephalic and atraumatic EYES: No injection, discharge or icterus. PERRL NECK: Trachea midline. Supple. ENT: Mucous membranes pink and moist. LUNGS: Airway patent. No retractions. Breath sounds clear with faint scattered wheeze. HEART: Regular rate and rhythm. No chest wall tenderness ABDOMEN: Soft and non-tender, without guarding or rebound. SKIN: Acyanotic, warm, dry, without rashes EXTREMITIES: Without swelling, tenderness or deformity NEUROLOGICAL: No focal deficits moving all extremities No aphasia. No slurred speech. Normal strength and tone in the extremities. Sensation to gross touch normal. Patient is confused and does not know his birthday or what is happened today. He will occasionally not answer questions and just stare at me. EK bpm atrial fibrillation. No acute ST segment elevation or depression with LVH. QTC 457. CONTINUOUS CARDIAC MONITORING: was ordered and showed a heart rate of 70s to 90s bpm in atrial fibrillation Patient's laboratory studies and imaging reviewed. Differential includes Infection, dehydration, metabolic abnormality, hypo/hyperglycemia, electrolyte disturbance, anemia, hypoxia, cardiac sources, intracerebral event, toxicologic, neurologic, as well as other pathologies. IMPRESSION/MEDICAL DECISION MAKING: Patient with confusion and reported hallucinations today. He will tell me his name but not his birthday or the true events of today. Patient responsive however and follows commands and does not appear somnolent. Patient does not appear meningitic. Afebrile upon arrival. History of A. fib and reportedly on anticoagulation. Stable A. fib at this time. CT the head completed to exclude intracranial bleed. No significant focal deficits indicative of a large-scale stroke at this time. Basic lab work and infectious work-up/metabolic work-up was completed. CT of the head per radiology without acute intracranial abnormality. Chest x- ray without significant acute pulmonary abnormality per radiology report Blood work with a white blood cell count of 6.7. Mild anemia hemoglobin 10.5. Troponin is undetectably low. CK not severely elevated more than 1000. Urinalysis negative. Covid negative. TSH within normal limits. Medical alcohol undetectably low. Patient has intermittently called out here to his "neighbor" who was in the room telling him to engage and ask with her dog. No one is in the room. Patient is redirectable. Given his acute reported hallucinations and behavior we will asked the hospitalist to evaluate for further care here at the hospital. I am unsure the exact etiology at this time. DIAGNOSIS: Hallucinations, confusion, atrial fibrillation DISPOSITION: Hospitalist will evaluate Patient was agreeable with this plan. Past Med/Surg History Medical History (Updated 04/18/21 @ 23:17 by Jorge Ley M.D.) AAA (abdominal aortic aneurysm) s/p repair- previously on Plavix (discontinued as patient had rectal bleeding/rectal bleeding since resolved- felt related to CMV) Atrial fibrillation following with Dr. Arroyo Avascular necrosis Benign prostatic hyperplasia with lower urinary tract symptoms Chronic cerebral ischemia per records/pt denies Chronic obstructive pulmonary disease CMV colitis Depression Diabetes mellitus, type 2 niddm Diabetic neuropathy Disc degeneration, lumbar Diverticulosis of colon Generalized osteoarthritis of multiple sites GERD (gastroesophageal reflux disease) controlled GI bleed Hearing loss hearing impaired, uses aide in Right. Deaf Left ear. Hiatal hernia HTN (hypertension) Hyperlipidemia Kidney stones Neuropathy Poor historian Prostate cancer Pulmonary nodules Ulcerative colitis Surgical History History of AAA (abdominal aortic aneurysm) repair History of colonoscopy History of lithotripsy History of prostate biopsy History of tooth extraction all teeth removed S/P prostatectomy 03/08/19 Dr. Robin Amaro- Robotic Assisted Laparoscopic Radical Retropubic Prostatectomy, Pelvic Lymph Node Dissection, Suprapubic Tube Placement Family History Brother Family history of diabetes mellitus FHx: prostate cancer Sister Family history of diabetes mellitus Breast cancer Family/Other Family history of diabetes mellitus nieces/nephews Father Lung cancer Sister Myocardial infarction, Onset Age: 66 [place] happened week of 11/10/18 Other No family history of adverse response to anesthesia Denies family history of Ovarian cancer Prostate cancer Colorectal cancer Social History Smoking Status: Current every day smoker Second Hand Exposure: No; Hx Alcohol Use: No Hx Substance Use: No Preferred Language: [place] Communication Ability: Impaired Visual Impairment: No Limitations Hearing Ability: Use of Hearing Aid Lan Specialist Required: No Beliefs That Will Affect Care: None marital status: Current Living Situation: Spouse current occupational status: unemployed Feels Safe at Home: Yes Childhood Exposure to Second-Hand Smoke: Yes Dental Care, Regularly: No Physical Activity Frequency: Daily Seatbelt Use: always Sunscreen Use: No Assistive Devices: Denture - Upper, Glasses and Hearing Aid - Right Allergies Allergies Allergy/AdvReac Type Severity Reaction Status Date / Time Cipro Allergy Severe hives Unverified 04/28/17 10:01 ciprofloxacin Allergy Intermediate dizzy, Verified 04/18/21 17:54 vomitting azithromycin AdvReac Intermediate dizzy, Verified 04/18/21 17:54 vomitting Home Meds Home Medications Medication Instructions Recorded Confirmed aspirin 81 mg tablet,delayed 81 mg PO QAM 10/16/19 04/18/21 release (Adult Low Dose Aspirin) atorvastatin 20 mg tablet (Lipitor) 20 mg PO QAM 11/25/20 04/18/21 Previous Rx's Medication Instructions Recorded blood-glucose meter #1 ea 12/06/18 diph,pertuss(acel),tet vac(PF) 2 0.5 ml IM ONCE #0.5 ml 11/03/20 Lf-(2.5-5-3-5mcg)-5 Lf/0.5 mL IM syringe (Adacel (Tdap Adolesn/Adult)(PF)) albuterol sulfate 90 mcg/actuation 2 puff INHALATION Q6H PRN #8.5 g 12/01/20 aerosol inhaler (ProAir HFA) pantoprazole 40 mg tablet,delayed 40 mg PO BID #60 tab 01/30/21 release (Protonix) gabapentin 600 mg tablet 600 mg PO TID #90 tab 02/27/21 (Neurontin) apixaban 5 mg tablet (Eliquis) 5 mg PO BID #60 tab 03/02/21 balsalazide 750 mg capsule 2,250 mg PO TID 90 Days #810 cap 03/11/21 (Colazal) metoprolol succinate 50 mg 50 mg PO BID #180 tab 03/13/21 tablet,extended release 24 hr (Toprol XL) metformin 500 mg tablet See Rx Instructions .ROUTE 04/10/21 .COMPLEX #180 tab Results & Data (ED) Vital Signs Vital Signs - 24 hr 04/18/21 17:02 04/18/21 17:53 04/18/21 18:33 Temperature 36.9 C Temperature Source Oral Pulse Rate 77 Pulse Rate [Apical] 93 H Pulse Rate from SpO2 Sensor Pulse Rhythm [Apical] Regular Pulse Strength [Apical] Normal Respiratory Rate 17 18 Respiratory Effort / Characteristics Non-Labored Non-Labored Spontaneous Respiratory Depth Normal Respiratory Pattern Regular Blood Pressure 174/116 H Blood Pressure [Right Arm] 172/105 H Blood Pressure Mean 135 Blood Pressure Mean [Right Arm] 127 Pulse Oximetry 96 98 Oxygen Delivery Method Room Air Room Air Room Air Sepsis Recent Fever Within 48 Hours No Sepsis New/Unexplained Change in Mental Status Yes Sepsis Action Taken by Nursing No Action Required Pulse Oximetry Post Tiitration 94 04/18/21 19:00 Temperature Temperature Source Pulse Rate 83 Pulse Rate [Apical] Pulse Rate from SpO2 Sensor 82 Pulse Rhythm [Apical] Pulse Strength [Apical] Respiratory Rate 22 Respiratory Effort / Characteristics Respiratory Depth Respiratory Pattern Blood Pressure 160/87 H Blood Pressure [Right Arm] Blood Pressure Mean 111 Blood Pressure Mean [Right Arm] Pulse Oximetry 97 Oxygen Delivery Method Room Air Sepsis Recent Fever Within 48 Hours Sepsis New/Unexplained Change in Mental Status Sepsis Action Taken by Nursing Pulse Oximetry Post Tiitration Laboratory Data Result diagrams: 04/18/21 16:56 04/18/21 16:56 Lab Results 04/18/21 04/18/21 04/18/21 Range/Units 16:56 16:56 16:56 WBC 6.74 (4.8-10.8) K/uL RBC 4.50 L (4.7-6.1) M/uL Hgb 10.5 L (14.0-18.0) g/dL Hct 34.2 L (42-52) % MCV 76.0 L (80-100) fL MCH 23.3 L (25-34) pg MCHC 30.7 L (32-36) g/dL RDW Std Deviation 47.2 H (36.4-46.3) fL RDW Coeff of Kayy 16.9 H (11.5-14.5) % Plt Count 350 (130-400) K/uL MPV 9.9 (7.4-10.4) fL Immature Gran % (Auto) 0.1 % Neut % (Auto) 55.0 % Lymph % (Auto) 32.5 % Mcdonald % (Auto) 11.1 % Eos % (Auto) 1.0 % Baso % (Auto) 0.3 % Neut # (Auto) 3.70 (1.4-6.5) K/uL Lymph # (Auto) 2.19 (1.2-3.4) K/uL Mcdonald # (Auto) 0.75 H (0.11-0.59) K/uL Eos # (Auto) 0.07 (0-0.5) K/uL Baso # (Auto) 0.02 (0-0.2) K/uL Immature Gran # (Auto) 0.01 (0.00-0.02) K/uL PT (9.0-12.0) Seconds INR (0.9-1.1) ABG pH (7.35-7.45) ABG pCO2 (35-46) mmHg ABG pO2 (80-95) mmHg ABG HCO3 (19-24) mmol/L ABG O2 Saturation (90-95) % ABG Base Excess (-9-1.8) mEq/L Nahum Test (Pos) Barometric Pressure mm/Hg Oxygen Given Sodium 134 L (136-145) mmol/L Potassium 4.1 (3.5-5.1) mmol/L Chloride 99 (98-107) mmol/L Carbon Dioxide 27 (21-32) mmol/L Anion Gap 8.0 (3-11) BUN 13 (7-18) mg/dl Creatinine 1.09 (0.6-1.4) mg/dl Est Cr Clr Drug Dosing Not Reportable Est GFR ( Amer) 78.2 ml/min Est GFR (Non-Af Amer) 67.5 ml/min BUN/Creatinine Ratio 12.0 (10-20) Glucose 103 H (70-99) mg/dl Calcium 9.4 (8.5-10.1) mg/dl Total Bilirubin 0.8 (0.2-1) mg/dl AST 28 (15-37) U/L ALT 13 (12-78) Alkaline Phosphatase 88 (45-117) U/L Ammonia (11-32) umol/L Total Creatine Kinase 627 H (39-308) U/L Troponin I < 0.015 (0-0.045) ng/ml Total Protein 8.4 H (6.4-8.2) gm/dl Albumin 3.4 (3.4-5.0) gm/dl Globulin 5.0 H (2.5-4.0) gm/dl Albumin/Globulin Ratio 0.7 L (0.9-2) TSH 1.290 (0.300-4.500) uIu/ml Specimen Hemolysis Urine Color Yellow Urine Appearance Clear (Clear) Urine pH 5.5 (4.5-7.5) Ur Specific Mcclellan 1.007 (1.000-1.030) Urine Protein Negative (Negative) Urine Glucose (UA) Negative (Negative) Urine Ketones Negative (Negative) Urine Blood Negative (Negative) Urine Nitrite Negative (Negative) Urine Bilirubin Negative (Negative) Urine Urobilinogen Negative (Negative) Ur Leukocyte Esterase Negative (Negative) Digoxin (0.8-2.0) ng/ml Ethyl Alcohol mg/dL (0-3) mg/dl SARS-CoV-2, RNA, NAAT (NEGATIVE) 04/18/21 04/18/21 04/18/21 Range/Units 16:56 17:44 17:44 WBC (4.8-10.8) K/uL RBC (4.7-6.1) M/uL Hgb (14.0-18.0) g/dL Hct (42-52) % MCV (80-100) fL MCH (25-34) pg MCHC (32-36) g/dL RDW Std Deviation (36.4-46.3) fL RDW Coeff of Kayy (11.5-14.5) % Plt Count (130-400) K/uL MPV (7.4-10.4) fL Immature Gran % (Auto) % Neut % (Auto) % Lymph % (Auto) % Mcdonald % (Auto) % Eos % (Auto) % Baso % (Auto) % Neut # (Auto) (1.4-6.5) K/uL Lymph # (Auto) (1.2-3.4) K/uL Mcdonald # (Auto) (0.11-0.59) K/uL Eos # (Auto) (0-0.5) K/uL Baso # (Auto) (0-0.2) K/uL Immature Gran # (Auto) (0.00-0.02) K/uL PT 11.9 (9.0-12.0) Seconds INR 1.2 H (0.9-1.1) ABG pH (7.35-7.45) ABG pCO2 (35-46) mmHg ABG pO2 (80-95) mmHg ABG HCO3 (19-24) mmol/L ABG O2 Saturation (90-95) % ABG Base Excess (-9-1.8) mEq/L Nahum Test (Pos) Barometric Pressure mm/Hg Oxygen Given Sodium (136-145) mmol/L Potassium (3.5-5.1) mmol/L Chloride (98-107) mmol/L Carbon Dioxide (21-32) mmol/L Anion Gap (3-11) BUN (7-18) mg/dl Creatinine (0.6-1.4) mg/dl Est Cr Clr Drug Dosing Est GFR ( Amer) ml/min Est GFR (Non-Af Amer) ml/min BUN/Creatinine Ratio (10-20) Glucose (70-99) mg/dl Calcium (8.5-10.1) mg/dl Total Bilirubin (0.2-1) mg/dl AST (15-37) U/L ALT (12-78) Alkaline Phosphatase (45-117) U/L Ammonia (11-32) umol/L Total Creatine Kinase (39-308) U/L Troponin I (0-0.045) ng/ml Total Protein (6.4-8.2) gm/dl Albumin (3.4-5.0) gm/dl Globulin (2.5-4.0) gm/dl Albumin/Globulin Ratio (0.9-2) TSH (0.300-4.500) uIu/ml Specimen Hemolysis Urine Color Urine Appearance (Clear) Urine pH (4.5-7.5) Ur Specific Mcclellan (1.000-1.030) Urine Protein (Negative) Urine Glucose (UA) (Negative) Urine Ketones (Negative) Urine Blood (Negative) Urine Nitrite (Negative) Urine Bilirubin (Negative) Urine Urobilinogen (Negative) Ur Leukocyte Esterase (Negative) Digoxin (0.8-2.0) ng/ml Ethyl Alcohol mg/dL < 3.0 (0-3) mg/dl SARS-CoV-2, RNA, NAAT NEGATIVE (NEGATIVE) 04/18/21 04/18/21 04/18/21 Range/Units 17:44 19:37 19:38 WBC (4.8-10.8) K/uL RBC (4.7-6.1) M/uL Hgb (14.0-18.0) g/dL Hct (42-52) % MCV (80-100) fL MCH (25-34) pg MCHC (32-36) g/dL RDW Std Deviation (36.4-46.3) fL RDW Coeff of Kayy (11.5-14.5) % Plt Count (130-400) K/uL MPV (7.4-10.4) fL Immature Gran % (Auto) % Neut % (Auto) % Lymph % (Auto) % Mcdonald % (Auto) % Eos % (Auto) % Baso % (Auto) % Neut # (Auto) (1.4-6.5) K/uL Lymph # (Auto) (1.2-3.4) K/uL Mcdonald # (Auto) (0.11-0.59) K/uL Eos # (Auto) (0-0.5) K/uL Baso # (Auto) (0-0.2) K/uL Immature Gran # (Auto) (0.00-0.02) K/uL PT (9.0-12.0) Seconds INR (0.9-1.1) ABG pH 7.46 H (7.35-7.45) ABG pCO2 39 (35-46) mmHg ABG pO2 74 L (80-95) mmHg ABG HCO3 27 H (19-24) mmol/L ABG O2 Saturation 95.5 H (90-95) % ABG Base Excess 3.2 H (-9-1.8) mEq/L Nahum Test Pos (Pos) Barometric Pressure 726.7 mm/Hg Oxygen Given ROOM AIR Sodium (136-145) mmol/L Potassium (3.5-5.1) mmol/L Chloride (98-107) mmol/L Carbon Dioxide (21-32) mmol/L Anion Gap (3-11) BUN (7-18) mg/dl Creatinine (0.6-1.4) mg/dl Est Cr Clr Drug Dosing Est GFR ( Amer) ml/min Est GFR (Non-Af Amer) ml/min BUN/Creatinine Ratio (10-20) Glucose (70-99) mg/dl Calcium (8.5-10.1) mg/dl Total Bilirubin (0.2-1) mg/dl AST (15-37) U/L ALT (12-78) Alkaline Phosphatase (45-117) U/L Ammonia 13.1 (11-32) umol/L Total Creatine Kinase (39-308) U/L Troponin I (0-0.045) ng/ml Total Protein (6.4-8.2) gm/dl Albumin (3.4-5.0) gm/dl Globulin (2.5-4.0) gm/dl Albumin/Globulin Ratio (0.9-2) TSH (0.300-4.500) uIu/ml Specimen Hemolysis Urine Color Urine Appearance (Clear) Urine pH (4.5-7.5) Ur Specific Mcclellan (1.000-1.030) Urine Protein (Negative) Urine Glucose (UA) (Negative) Urine Ketones (Negative) Urine Blood (Negative) Urine Nitrite (Negative) Urine Bilirubin (Negative) Urine Urobilinogen (Negative) Ur Leukocyte Esterase (Negative) Digoxin 0.1 L (0.8-2.0) ng/ml Ethyl Alcohol mg/dL (0-3) mg/dl SARS-CoV-2, RNA, NAAT (NEGATIVE) Imaging Data Radiologist's Impression: Chest X-Ray 04/18/21 16:53 SINGLE VIEW CHEST CLINICAL HISTORY: Change in mental status. FINDINGS: 2 AP, portable, upright chest radiographs are compared to chest x-ray and chest CT dated 05/09/2020. The examination is degraded by portable technique and patient rotation. The heart is enlarged. The pulmonary vasculature is noncongested. Advanced emphysema and chronic interstitial thickening are similar to previous. There is no airspace consolidation typical for pneumonia or large p leural effusion. Scarring/atelectasis is noted at the lung bases. No pneumothorax is seen. The skeletal structures are osteopenic. There are chronic/healed left-sided rib fractures. IMPRESSION: Cardiomegaly and emphysema with no acute cardiopulmonary abnormality. ACT 112: Negative or not required by law. Electronically signed by: Sammy Leal M.D. 04/18/2021 5:[address] 04/18/21 16:53 CT SCAN OF THE BRAIN WITHOUT IV CONTRAST CLINICAL HISTORY: Change in mental status COMPARISON STUDY: CT of the brain dated 05/09/2020. TECHNIQUE: Unenhanced axial CT scan of the brain is performed from the vertex to the skull base. A dose lowering technique was utilized adhering to the principles of ALARA. CT DOSE: 638.56 mGycm FINDINGS: Brain parenchyma: There are age-related involutional changes noting moderate subcortical and periventricular microangiopathic change. There is no hemorrhage, mass effect, or evidence of acute territorial ischemia by CT criteria. Gonzáles- white matter differentiation is preserved. No extra-axial fluid collection is seen. A tiny chronic lacunar infarct is noted in the right caudate head. Ventricles, sulci, cisterns: Prominent secondary to involutional change. Intracranial vasculature: There is atherosclerotic calcification of the cavernous carotid and vertebral arteries. Calvarium: Unremarkable. Sinuses and mastoids: The visualized paranasal sinuses are clear. The mastoid air cells are well pneumatized. Orbits: The bony orbits are grossly intact. IMPRESSION: There is no hemorrhage, mass effect, or evidence of acute territorial ischemia by CT criteria. ACT 112: Negative or not required by law. Electronically signed by: Sammy Leal M.D. 04/18/2021 5:25 PM Discharge Plan Visit Data Chief Complaint: Altered Mental Status ED Provider: Jorge Ley Discharge Problem: Hallucinations, Confusion, A-fib Patient Disposition: Being Evaluated by Hospitalist Discharge Instructions Interventions: ED Discharge Assessment Last Done: 04/18/21 22:18
[2021-04-18 17:08] LABS: Basophils # (auto) 0.02 K/uL (0-0.2); Basophils % (auto) 0.3 %; Eosinophils # (auto) 0.07 K/uL (0-0.5); Hematocrit (blood only) 34.2 % (42-52); Hemoglobin 10.5 g/dL (14.0-18.0); Immature Granulocytes # (auto) 0.01 K/uL (0.00-0.02); Immature Granulocytes % (auto) 0.1 %; Lymphocytes # (auto) 2.19 K/uL (1.2-3.4); Lymphocytes % (auto) 32.5 %; Mean Corpuscular Hemoglobin 23.3 pg (25-34); Mean Corpuscular Hgb Conc 30.7 g/dL (32-36); Mean Platelet Volume 9.9 fL (7.4-10.4); Monocytes # (auto) 0.75 K/uL (0.11-0.59); Monocytes % (auto) 11.1 %; Platelet Count 350 K/uL (130-400); RDW Coefficient of Variation 16.9 % (11.5-14.5); RDW Standard Deviation 47.2 fL (36.4-46.3); White Blood Count 6.74 K/uL (4.8-10.8)
[2021-04-18 17:20] LABS: Appearance Urine Clear (Clear); Bilirubin Urine Negative (Negative); Blood Urine Negative (Negative); Color Urine Yellow; Glucose Urine UA Negative (Negative); Ketones Urine Negative (Negative); Leukocyte Esterase Urine Negative (Negative); Nitrite Urine Negative (Negative); Protein Urine Negative (Negative); Specific Gravity Urine 1.007 (1.000-1.030); Urobilinogen Urine Negative (Negative); pH Urine 5.5 (4.5-7.5)
--- NOTE | 2021-04-18 17:27 | CT Scan Report ---
CT SCAN OF THE BRAIN WITHOUT IV CONTRAST CLINICAL HISTORY: Change in mental status COMPARISON STUDY: CT of the brain dated 05/09/2020. TECHNIQUE: Unenhanced axial CT scan of the brain is performed from the vertex to the skull base. A do se lowering technique was utilized adhering to the principles of ALARA. CT DOSE: 638.56 mGycm FINDINGS: Brain parenchyma: There are age-related involutional changes noting moderate subcortical and periven tricular microangiopathic change. There is no hemorrhage, mass effect, or evidence of acute territori al ischemia by CT criteria. Gonzáles-white matter differentiation is preserved. No extra-axial fluid gerardo ection is seen. A tiny chronic lacunar infarct is noted in the right caudate head. Ventricles, sulci, cisterns: Prominent secondary to involutional change. Intracranial vasculature: There is atherosclerotic calcification of the cavernous carotid and vertebr al arteries. Calvarium: Unremarkable. Sinuses and mastoids: The visualized paranasal sinuses are clear. The mastoid air cells are well pneu matized. Orbits: The bony orbits are grossly intact. IMPRESSION: There is no hemorrhage, mass effect, or evidence of acute territorial ischemia by CT huang murcia. ACT 112: Negative or not required by law. Electronically signed by: Sammy Leal M.D. 04/18/2021 5:25 PM
--- NOTE | 2021-04-18 17:36 | XRay Report ---
SINGLE VIEW CHEST CLINICAL HISTORY: Change in mental status. FINDINGS: 2 AP, portable, upright chest radiographs are compared to chest x-ray and chest CT dated 05/09/2020. The examination is degraded by portable technique and patient rotation. The heart is enlarged . The pulmonary vasculature is noncongested. Advanced emphysema and chronic interstitial thickening a re similar to previous. There is no airspace consolidation typical for pneumonia or large pleural eff usion. Scarring/atelectasis is noted at the lung bases. No pneumothorax is seen. The skeletal structu res are osteopenic. There are chronic/healed left-sided rib fractures. IMPRESSION: Cardiomegaly and emphysema with no acute cardiopulmonary abnormality. ACT 112: Negative or not required by law. Electronically signed by: Sammy Leal M.D. 04/18/2021 5:35 PM
[2021-04-18 17:39] LABS: Alanine Aminotransferase 13 (12-78); Albumin Level 3.4 gm/dl (3.4-5.0); Aspartate Aminotransferase 28 U/L (15-37); Blood Urea Nitrogen 13 mg/dl (7-18); Calcium 9.4 mg/dl (8.5-10.1); Carbon Dioxide 27 mmol/L (21-32); Chloride 99 mmol/L (98-107); Est GFR (African American) 78.2 ml/min; Est GFR (Non-African American) 67.5 ml/min; Glucose 103 mg/dl (70-99); Potassium 4.1 mmol/L (3.5-5.1); Sodium 134 mmol/L (136-145)
[2021-04-18 17:41] LABS: Albumin Globulin Ratio 0.7 (0.9-2); Alkaline Phosphatase 88 U/L (45-117); Bilirubin,Total 0.8 mg/dl (0.2-1); Creatine Kinase 627 U/L (39-308); Total Protein 8.4 gm/dl (6.4-8.2); Troponin I < 0.015 ng/ml (0-0.045)
[2021-04-18 18:06] LABS: INR 1.2 (0.9-1.1); Prothrombin Time 11.9 Seconds (9.0-12.0)
--- NOTE | 2021-04-18 19:17 | History & Physical Report ---
Date of Service April 18, 2021 Assessment & Plan (1) Hallucinations: Plan: Haldol q4h PRN for hallucinations and delirium if at risk to self or others No acute cause identified but suspect related to underlying dementia with prior mini-COG assessments 0/5. UA negative for infection CT head with no acute pathology Alcohol level negative Will add ammonia and CO2 levels Will need better collateral history tomorrow (2) Confusion: Plan: Suspect underlying dementia ?Lewy body with visual and auditory hallucinations as above (3) Atrial fibrillation: Plan: Continue Eliquis 5mg PO BID for anticoagulation Continue metoprolol succinate 50mg PO BID for rate control (4) Chronic obstructive pulmonary disease: Plan: No acute exacerbation suspected, ABG as above to assess for CO2 retention. He is on no maintenance inhalers for this. (5) Diabetes mellitus type II, controlled: Plan: HbA1C 6.05 November 2019, will repeat with AM labs Glucose 103 on admission, do not suspect he will need insulin coverage and repeated finger sticks likely to add to delirium therefore will keep on regular diet and repeat glucose levels in AM. 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 Continue aspirin and atorvastatin. (8) Hyperlipidemia: Plan: Continue atorvastatin 20mg PO QAM (9) Abdominal aortic aneurysm: Plan: s/p repair- previously on Plavix (discontinued as patient had rectal bleeding/rectal bleeding since resolved- felt related to CMV) Plan: VTE Prophylaxis - Eliquis Diet - regular Disposition - observation status to med/surg Admission and Anticipated Discharge Date Admission Date: April 18, 2021 History of Present Illness Chief Complaint: Hallucinations Primary Care Provider: Lupe Weinstein MD Khadar Bailey is a 71 year old male who presents to the ER due to visual and auditory hallucinations. Unable to get any history from the patient as he is unaware he is in the emergency room and only able to tell me his first name. He responds to some questions appropriately and reports not being in pain. He responds to other questions inappropriately or not at all such as asking for the date. No answer on contact provided on electronic health record (his ). Therefore history entirely taken from ER physician and EMS notes. He was reportedly found on his neighbors porch hallucinating and talking to people. His neighbors called his [id number] and reports he sometimes gets confused when he is dehydrated. While in the ER he has been seeing people in the bathroom that are not there. Per review of previous notes he failed a mini cognitive assessment with 0 out of 5 in October of this year. This is a dramatic difference to 4 out of 5 the prev ious year. I am unclear if he had any significant follow-up from this although appears to be on Allergies Allergy/AdvReac Type Severity Reaction Status Date / Time Cipro Allergy Severe hives Unverified 04/28/17 10:01 ciprofloxacin Allergy Intermediate dizzy, Verified 04/18/21 17:54 vomitting azithromycin AdvReac Intermediate dizzy, Verified 04/18/21 17:54 vomitting Home Medications Medication Instructions Recorded Confirmed Type blood-glucose meter #1 ea 12/06/18 12/10/20 Rx aspirin 81 mg tablet,delayed 81 mg PO QAM 10/16/19 04/18/21 History release (Adult Low Dose Aspirin) diph,pertuss(acel),tet vac(PF) 2 0.5 ml IM ONCE #0.5 ml 11/03/20 12/01/20 Rx Lf-(2.5-5-3-5mcg)-5 Lf/0.5 mL IM syringe (Adacel (Tdap Adolesn/Adult)(PF)) atorvastatin 20 mg tablet (Lipitor) 20 mg PO QAM 11/25/20 04/18/21 History albuterol sulfate 90 mcg/actuation 2 puff INHALATION Q6H PRN #8.5 g 12/01/20 04/18/21 Rx aerosol inhaler (ProAir HFA) pantoprazole 40 mg tablet,delayed 40 mg PO BID #60 tab 01/30/21 04/18/21 Rx release (Protonix) gabapentin 600 mg tablet 600 mg PO TID #90 tab 02/27/21 04/18/21 Rx (Neurontin) apixaban 5 mg tablet (Eliquis) 5 mg PO BID #60 tab 03/02/21 04/18/21 Rx balsalazide 750 mg capsule 2,250 mg PO TID 90 Days #810 cap 03/11/21 04/18/21 Rx (Colazal) metoprolol succinate 50 mg 50 mg PO BID #180 tab 03/13/21 04/18/21 Rx tablet,extended release 24 hr (Toprol XL) metformin 500 mg tablet See Rx Instructions .ROUTE 04/10/21 04/18/21 Rx .COMPLEX #180 tab Past Med/Surg History Medical History (Updated 04/19/21 @ 06:46 by Moshe Tsang MD) AAA (abdominal aortic aneurysm) s/p repair- previously on Plavix (discontinued as patient had rectal bleeding/rectal bleeding since resolved- felt related to CMV) Atrial fibrillation following with Dr. Arroyo Avascular necrosis Benign prostatic hyperplasia with lower urinary tract symptoms Chronic cerebral ischemia per records/pt denies Chronic obstructive pulmonary disease CMV colitis Depression Diabetes mellitus, type 2 niddm Diabetic neuropathy Disc degeneration, lumbar Diverticulosis of colon Generalized osteoarthritis of multiple sites GERD (gastroesophageal reflux disease) controlled GI bleed Hearing loss hearing impaired, uses aide in Right. Deaf Left ear. Hiatal hernia HTN (hypertension) Hyperlipidemia Kidney stones Neuropathy Poor historian Prostate cancer Pulmonary nodules Ulcerative colitis Surgical History History of AAA (abdominal aortic aneurysm) repair History of colonoscopy History of lithotripsy History of prostate biopsy History of tooth extraction all teeth removed S/P prostatectomy 03/08/19 Dr. Robin Amaro- Robotic Assisted Laparoscopic Radical Retropubic Prostatectomy, Pelvic Lymph Node Dissection, Suprapubic Tube Placement Family History Brother Family history of diabetes mellitus FHx: prostate cancer Sister Family history of diabetes mellitus Breast cancer Family/Other Family history of diabetes mellitus nieces/nephews Father Lung cancer Sister Myocardial infarction, Onset Age: 66 NH happened week of 11/10/18 Other No family history of adverse response to anesthesia Denies family history of Ovarian cancer Prostate cancer Colorectal cancer Social History Smoking Status: Current every day smoker Second Hand Exposure: No; Hx Alcohol Use: No Hx Substance Use: No Preferred Language: Haitian Communication Ability: Impaired Visual Impairment: No Limitations Hearing Ability: 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: No Beliefs That Will Affect Care: None marital status: Current Living Situation: Spouse current occupational status: unemployed Feels Safe at Home: Yes Childhood Exposure to Second-Hand Smoke: Yes Dental Care, Regularly: No Physical Activity Frequency: Daily Seatbelt Use: always Sunscreen Use: No Assistive Devices: Denture - Upper, Glasses and Hearing Aid - Right Review of Systems Review of Systems: All systems reviewed & are unremarkable except as noted in HPI & below Physical Exam Constitutional: well developed; + not well nourished and no acute distress Eyes: PERRL, conjunctivae normal, anicteric sclerae ENMT: external ear and nose normal, oropharynx normal Neck: trachea midline, no thyromegaly Respiratory: normal respiratory effort, lungs clear to auscultation Cardiovascular: Rate/Rhythm: regular rate and + irregularly irregular Heart Sounds: no murmur Vessels: posterior tibial pulses present, dorsalis pedis pulses present and radial pulses present Extremities: normal capillary refill; no calf tenderness and no pedal edema Gastrointestinal (Abdomen): Inspection/Auscultation: normal bowel sounds Percussion/Palpation: + abdomen tender (mild umbilucus tenderness (pt reports longstanding)) and abdomen soft; no guarding and abdomen not rigid Musculoskeletal: no cyanosis or clubbing, extremities motor strength 5/5 Skin: no rashes, warm and dry Neurologic: moves all extremities and awake; no focal motor deficits and not confused Psychiatric: Orientation: alert and oriented to person (self only); + not oriented to place and + not oriented to time Affect: euthymic affect Thought Process: + tangential thought process Hallucinations: + auditory hallucinations and + visual hallucinations (noted by nursing staff while in the ER) Cognition: + recent memory not intact Genitourinary: no CVA tenderness Results & Data Results & Data ([facility]) Vital Signs (Past 12 Hours) Vital Signs Temp Pulse Pulse Resp BP BP Pulse Ox 04/18/21 18:33 93 H 18 172/105 H 98 04/18/21 17:02 36.9 C 77 17 174/116 H 96 Laboratory Results Abnormal lab results 04/18/21 04/18/21 04/18/21 Range/Units 16:56 16:56 17:44 RBC 4.50 L (4.7-6.1) M/uL Hgb 10.5 L (14.0-18.0) g/dL Hct 34.2 L (42-52) % MCV 76.0 L (80-100) fL MCH 23.3 L (25-34) pg MCHC 30.7 L (32-36) g/dL RDW Std Deviation 47.2 H (36.4-46.3) fL RDW Coeff of Kayy 16.9 H (11.5-14.5) % [place]ascade # (Auto) 0.75 H (0.11-0.59) K/uL INR 1.2 H (0.9-1.1) Sodium 134 L (136-145) mmol/L Glucose 103 H (70-99) mg/dl Total Creatine Kinase 627 H (39-308) U/L Total Protein 8.4 H (6.4-8.2) gm/dl Globulin 5.0 H (2.5-4.0) gm/dl Albumin/Globulin Ratio 0.7 L (0.9-2) Digoxin (0.8-2.0) ng/ml 04/18/21 Range/Units 17:44 RBC (4.7-6.1) M/uL Hgb (14.0-18.0) g/dL Hct (42-52) % MCV (80-100) fL MCH (25-34) pg MCHC (32-36) g/dL RDW Std Deviation (36.4-46.3) fL RDW Coeff of Kayy (11.5-14.5) % [place]ascade # (Auto) (0.11-0.59) K/uL INR (0.9-1.1) Sodium (136-145) mmol/L Glucose (70-99) mg/dl Total Creatine Kinase (39-308) U/L Total Protein (6.4-8.2) gm/dl Globulin (2.5-4.0) gm/dl Albumin/Globulin Ratio (0.9-2) Digoxin 0.1 L (0.8-2.0) ng/ml Diagnostic Findings SINGLE VIEW CHEST CLINICAL HISTORY: Change in mental status. FINDINGS: 2 AP, portable, upright chest radiographs are compared to chest x-ray and chest CT dated 05/09/2020. The examination is degraded by portable technique and patient rotation. The heart is enlarged. The pulmonary vasculature is noncongested. Advanced emphysema and chronic interstitial thickening are similar to previous. There is no airspace consolidation typical for pneumonia or large pleural effusion. Scarring/atelectasis is noted at the lung bases. No pneumothorax is seen. The skeletal structures are osteopenic. There are chronic/healed left-sided rib fractures. IMPRESSION: Cardiomegaly and emphysema with no acute cardiopulmonary abnormality. CT SCAN OF THE BRAIN WITHOUT IV CONTRAST CLINICAL HISTORY: Change in mental status COMPARISON STUDY: CT of the brain dated 05/09/2020. TECHNIQUE: Unenhanced axial CT scan of the brain is performed from the vertex to the skull base. A dose lowering technique was utilized adhering to the principles of ALARA. CT DOSE: 638.56 mGycm FINDINGS: Brain parenchyma: There are age-related involutional changes noting moderate subcortical and periventricular microangiopathic change. There is no hemorrhage, mass effect, or evidence of acute territorial ischemia by CT criteria. Gonzáles- white matter differentiation is preserved. No extra-axial fluid collection is seen. A tiny chronic lacunar infarct is noted in the right caudate head. Ventricles, sulci, cisterns: Prominent secondary to involutional change. Intracranial vasculature: There is atherosclerotic calcification of the cavernous carotid and vertebral arteries. Calvarium: Unremarkable. Sinuses and mastoids: The visualized paranasal sinuses are clear. The mastoid air cells are well pneumatized. Orbits: The bony orbits are grossly intact. IMPRESSION: There is no hemorrhage, mass effect, or evidence of acute territorial ischemia by CT criteria. Medications Administered ER Medications Given: None ECG Rate (beats per minute): 80 Rhythm: atrial fibrillation Findings: + nonspecific-ST abn Comparison ECG Date: from (November 25, 2020) Change: no significant change Code Status & VTE Plan Code Status Full - presumed, patient unable to take part in meaningful discussion VTE Prophylaxis Plan VTE Prophylaxis will be ordered: Yes PG Care Time/CCT Total # of Minutes Spent Total Time Spent with Patient: Total time spent is greater than 50% in coordination of care (as documented) at patient's floor/unit and/or counseling patient: Coding Level of Care Code INT OBSERVATION CARE 70M LVL 3 Diagnoses Hallucinations R44.3 Confusion R41.0 Atrial fibrillation I48.91 Atrial fibrillation type: unspecified Chronic obstructive pulmonary disease J44.9 Diabetes mellitus type II, controlled E11.9 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
[2021-04-18 19:48] LABS: Base Excess ABG 3.2 mEq/L (-9-1.8); HCO3 ABG 27 mmol/L (19-24); Oxygen Saturation ABG 95.5 % (90-95); PCO2 ABG 39 mmHg (35-46); PO2 ABG 74 mmHg (80-95); pH ABG 7.46 (7.35-7.45)
[2021-04-18 19:51] LABS: Allen Test Pos (Pos)
[2021-04-18] MEDS ORDERED: HALOPERIDOL LACTATE 5 MG/ML 1 ML VIAL IM PRN (22:16)
[2021-04-18] MEDS ORDERED: POLYETHYLENE (MIRALAX) 17 GM PACK PO PRN (22:19)
[2021-04-18] MEDS ORDERED: ACETAMINOPHEN 325 MG TAB PO PRN (22:19)
[2021-04-18] MEDS ORDERED: ONDANSETRON INJ 2 MG/ML 2 ML VIAL IV PRN (22:19)
[2021-04-18] MEDS: METOPROLOL SUCC 50MG EXT REL TAB PO SCH (23:28)
[2021-04-18] MEDS: GABAPENTIN 600 MG TAB PO SCH (23:28)
[2021-04-18] MEDS: APIXABAN 5 MG TABLET PO SCH (23:28)
[2021-04-18] MEDS: PANTOprazole 40 MG TAB PO SCH (23:28)
[2021-04-18] MEDS: ATORVASTATIN 20 MG TAB PO SCH (23:28)
[2021-04-19] MEDS ORDERED: HALOPERIDOL LACTATE 5 MG/ML 1 ML VIAL IM PRN (03:00)
[2021-04-19] MEDS ORDERED: HALOPERIDOL LACTATE 5 MG/ML 1 ML VIAL ONE (03:06)
[2021-04-19 05:48] LABS: Basophils # (auto) 0.03 K/uL (0-0.2); Basophils % (auto) 0.5 %; Eosinophils # (auto) 0.11 K/uL (0-0.5); Eosinophils % (auto) 1.7 %; Hematocrit (blood only) 36.3 % (42-52); Immature Granulocytes # (auto) 0.01 K/uL (0.00-0.02); Immature Granulocytes % (auto) 0.2 %; Lymphocytes # (auto) 1.97 K/uL (1.2-3.4); Lymphocytes % (auto) 30.4 %; Mean Corpuscular Hemoglobin 23.1 pg (25-34); Mean Corpuscular Hgb Conc 30.3 g/dL (32-36); Mean Corpuscular Volume 76.1 fL (80-100); Mean Platelet Volume 9.6 fL (7.4-10.4); Monocytes # (auto) 0.81 K/uL (0.11-0.59); Monocytes % (auto) 12.5 %; Neutrophils # (auto) 3.56 K/uL (1.4-6.5); Neutrophils % (auto) 54.7 %; Platelet Count 295 K/uL (130-400); RDW Standard Deviation 47.4 fL (36.4-46.3); Red Blood Count 4.77 M/uL (4.7-6.1); White Blood Count 6.49 K/uL (4.8-10.8)
[2021-04-19 06:22] LABS: BUN Creatinine Ratio 13.1 (10-20); Calcium 8.7 mg/dl (8.5-10.1); Creatinine Clr Calc Pharmacy 70.3 ml/min; Est GFR (African American) 93.5 ml/min; Est GFR (Non-African American) 80.7 ml/min; Potassium 4.2 mmol/L (3.5-5.1)
--- NOTE | 2021-04-19 06:54 | Electrocardiogram Report ---
Test Reason : Blood Pressure : / mmHG Vent. Rate : 080 BPM Atrial Rate : 082 BPM P-R Int : 000 ms QRS Dur : 092 ms QT Int : 392 ms P-R-T Axes : 000 065 045 degrees QTc Int : 452 ms Poor data quality, interpretation may be adversely affected Atrial fibrillation Voltage criteria for left ventricular hypertrophy Nonspecific ST abnormality Abnormal ECG When compared with ECG of 25-NOV-2020 07:40, No significant change was found Confirmed by Shawn Coreas ([id number]) on 04/19/2021 6:53:37 AM Referred By: REFERRED SELF Confirmed By:Shawn Coreas
[2021-04-19] MEDS: APIXABAN 5 MG TABLET PO SCH ×2 (09:30→20:03)
[2021-04-19] MEDS: PANTOprazole 40 MG TAB PO SCH ×2 (09:30→20:03)
[2021-04-19] MEDS: ATORVASTATIN 20 MG TAB PO SCH (09:30)
[2021-04-19] MEDS: GABAPENTIN 600 MG TAB PO SCH ×3 (09:30→20:03)
[2021-04-19] MEDS: METOPROLOL SUCC 50MG EXT REL TAB PO SCH ×2 (09:30→20:03)
--- NOTE | 2021-04-19 13:50 | Psychiatric Consultation ---
Date of Consultation April 19, 2021 Impression / Recommendations Impression 71 yo male with a history of cognitive decline who was wandering confused, reportedly no sleeping well and responding to acute onset hallucinations after a period of decline in self-care reportedly related to leaving the home (per brother Kendall, though Kendall also reports his memory was largely intact up until leaving). (1) Altered mental status: (2) Major neurocognitive disorder: continue medical evaluation of AMS as hallucinations rather acute in onset vs insidious. Conside MRI as head CT mainly for acute hemorrhage and has risks for ischemic event. certainly hallucinations can be present in later stages of many forms of dementia, if hospitalist concerned about Lewy Body disease should monitor for EPS with Haldol as patients with lewy body are exquisitely sensitive to EPS, even with Zyprexa and can affect swallow, etc. Cogentin for acute dystonia only as try to avoid anticholinergics in patients with AMS. We typically reserve standing atypicals for aggression/agitation given risks in elderly if hallucinations are otherwise not bizarre or distressing for patient. Current nurse states calm and cooperative with toileting, etc. Psych History Identifying Data Mr. Bailey is a 71-year-old male with a history of major cognitive decline admit overnight for new onset of hallucinations after being found confused on a neighbor's porch. Exam is limited by patient sedation and also very KIVAL[place]. Chief Complaint "What do you need? OK". History of Present Illness Minimal collateral information thus far other than leaving 2 months ago and likely non-compliant with his medications since and explains decline in self-care. No apparent psych history on chart and only other input from sister in law is that has gotten confused in past when dehydrated. Medical work up shows subtherapeutic dig level (ie no toxicity), hx of 0 on Mini Cog at his outpatient appointment with STACEY Mike in 11/19, QTc 452, and no acute issues on head CT. Past Psychiatric History Previous Psych History: no per brother, would need to confirm no access to gun if able to discharge home. Outpatient Services: none Previous Psych Admissions: none Allergies Allergy/AdvReac Type Severity Reaction Status Date / Time Cipro Allergy Severe hives Unverified 04/28/17 10:01 ciprofloxacin Allergy Intermediate dizzy, Verified 04/18/21 17:54 vomitting azithromycin AdvReac Intermediate dizzy, Verified 04/18/21 17:54 vomitting Home Medications Medication Instructions Recorded Confirmed Type blood-glucose meter #1 ea 12/06/18 12/10/20 Rx aspirin 81 mg tablet,delayed 81 mg PO QAM 10/16/19 04/18/21 History release (Adult Low Dose Aspirin) diph,pertuss(acel),tet vac(PF) 2 0.5 ml IM ONCE #0.5 ml 11/03/20 12/01/20 Rx Lf-(2.5-5-3-5mcg)-5 Lf/0.5 mL IM syringe (Adacel (Tdap Adolesn/Adult)(PF)) atorvastatin 20 mg tablet (Lipitor) 20 mg PO QAM 11/25/20 04/18/21 History albuterol sulfate 90 mcg/actuation 2 puff INHALATION Q6H PRN #8.5 g 12/01/20 04/18/21 Rx aerosol inhaler (ProAir HFA) pantoprazole 40 mg tablet,delayed 40 mg PO BID #60 tab 01/30/21 04/18/21 Rx release (Protonix) gabapentin 600 mg tablet 600 mg PO TID #90 tab 02/27/21 04/18/21 Rx (Neurontin) apixaban 5 mg tablet (Eliquis) 5 mg PO BID #60 tab 03/02/21 04/18/21 Rx balsalazide 750 mg capsule 2,250 mg PO TID 90 Days #810 cap 03/11/21 04/18/21 Rx (Colazal) metoprolol succinate 50 mg 50 mg PO BID #180 tab 03/13/21 04/18/21 Rx tablet,extended release 24 hr (Toprol XL) metformin 500 mg tablet See Rx Instructions .ROUTE 04/10/21 04/18/21 Rx .COMPLEX #180 tab Personal History Beliefs That Will Affect Care: None Patient History Medical History AAA (abdominal aortic aneurysm) s/p repair- previously on Plavix (discontinued as patient had rectal bleeding/rectal bleeding since resolved- felt related to CMV) Atrial fibrillation following with Dr. Arroyo Avascular necrosis Benign prostatic hyperplasia with lower urinary tract symptoms Chronic cerebral ischemia per records/pt denies Chronic obstructive pulmonary disease CMV colitis Depression Diabetes mellitus, type 2 niddm Diabetic neuropathy Disc degeneration, lumbar Diverticulosis of colon Generalized osteoarthritis of multiple sites GERD (gastroesophageal reflux disease) controlled GI bleed Hearing loss hearing impaired, uses aide in Right. Deaf Left ear. Hiatal hernia HTN (hypertension) Hyperlipidemia Kidney stones Neuropathy Poor historian Prostate cancer Pulmonary nodules Ulcerative colitis Surgical History History of AAA (abdominal aortic aneurysm) repair History of colonoscopy History of lithotripsy History of prostate biopsy History of tooth extraction all teeth removed S/P prostatectomy 03/08/19 Dr. Robin Amaro- Robotic Assisted Laparoscopic Radical Retropubic Prostatectomy, Pelvic Lymph Node Dissection, Suprapubic Tube Placement Family History Brother Family history of diabetes mellitus FHx: prostate cancer Sister Family history of diabetes mellitus Breast cancer Family/Other Family history of diabetes mellitus nieces/nephews Father Lung cancer Sister Myocardial infarction, Onset Age: 66 NH happened week of 11/10/18 Other No family history of adverse response to anesthesia Denies family history of Ovarian cancer Prostate cancer Colorectal cancer Social History Smoking Status: Current every day smoker Second Hand Exposure: No; Hx Alcohol Use: No Hx Substance Use: No Preferred Language: Azerbaijani Communication Ability: Impaired Visual Impairment: No Limitations Hearing Ability: Use of Hearing Aid C Web Developer Required: No Beliefs That Will Affect Care: None marital status: Current Living Situation: Spouse current occupational status: unemployed Feels Safe at Home: Yes Childhood Exposure to Second-Hand Smoke: Yes Dental Care, Regularly: No Physical Activity Frequency: Daily Seatbelt Use: always Sunscreen Use: No Assistive Devices: Denture - Upper, Glasses and Hearing Aid - Right Physical Exam Psychiatric: Orientation: + not alert and + not oriented x 3 Eye Contact: + poor eye contact no rigidity Speech: + abnormal rate/rhythm/volume of speech Affect: + blunted affect unable to answer Thought Process: + concrete thought process Thought Content: no delusions unable to assess Hallucinations: no auditory hallucinations (though he cannot understand question, does not appear to be responding) and no visual hallucinations Cognition: + attention not intact and + language not intact (but could be factor of hearing) Estimated Intelligence: consistent with education level Vital Signs (Past 24 Hours): Last Vital Signs Temp 36.9 C 04/18/21 17:02 Pulse 62 04/19/21 09:19 Resp 16 04/19/21 09:19 BP 157/82 H 04/19/21 09:19 Pulse Ox 98 04/19/21 09:19 Review of Systems Unobtainable due to cognitive status Results & Data (PSY) Laboratory Results 04/19/21 04/19/21 04/19/21 Range/Units 05:35 05:35 05:35 WBC 6.49 (4.8-10.8) K/uL RBC 4.77 (4.7-6.1) M/uL Hgb 11.0 L (14.0-18.0) g/dL Hct 36.3 L (42-52) % MCV 76.1 L (80-100) fL MCH 23.1 L (25-34) pg MCHC 30.3 L (32-36) g/dL RDW Std Deviation 47.4 H (36.4-46.3) fL RDW Coeff of Kayy 17.0 H (11.5-14.5) % Plt Count 295 (130-400) K/uL MPV 9.6 (7.4-10.4) fL Immature Gran % (Auto) 0.2 % Neut % (Auto) 54.7 % Lymph % (Auto) 30.4 % [place] % (Auto) 12.5 % Eos % (Auto) 1.7 % Baso % (Auto) 0.5 % Neut # (Auto) 3.56 (1.4-6.5) K/uL Lymph # (Auto) 1.97 (1.2-3.4) K/uL [place] # (Auto) 0.81 H (0.11-0.59) K/uL Eos # (Auto) 0.11 (0-0.5) K/uL Baso # (Auto) 0.03 (0-0.2) K/uL Immature Gran # (Auto) 0.01 (0.00-0.02) K/uL PT (9.0-12.0) Seconds INR (0.9-1.1) ABG pH (7.35-7.45) ABG pCO2 (35-46) mmHg ABG pO2 (80-95) mmHg ABG HCO3 (19-24) mmol/L ABG O2 Saturation (90-95) % ABG Base Excess (-9-1.8) mEq/L [place] Test (Pos) Barometric Pressure mm/Hg Oxygen Given Sodium 138 (136-145) mmol/L Potassium 4.2 (3.5-5.1) mmol/L Chloride 104 (98-107) mmol/L Carbon Dioxide 28 (21-32) mmol/L Anion Gap 6.0 (3-11) BUN 12 (7-18) mg/dl Creatinine 0.94 (0.6-1.4) mg/dl Est Cr Clr Drug Dosing 70.3 Est GFR ( Amer) 93.5 ml/min Est GFR (Non-Af Amer) 80.7 ml/min BUN/Creatinine Ratio 13.1 (10-20) Glucose 93 (70-99) mg/dl Estimat Average Glucose Pending Hemoglobin A1c Pending Calcium 8.7 (8.5-10.1) mg/dl Total Bilirubin (0.2-1) mg/dl AST (15-37) U/L ALT (12-78) Alkaline Phosphatase (45-117) U/L Ammonia (11-32) umol/L Total Creatine Kinase (39-308) U/L Troponin I (0-0.045) ng/ml Total Protein (6.4-8.2) gm/dl Albumin (3.4-5.0) gm/dl Globulin (2.5-4.0) gm/dl Albumin/Globulin Ratio (0.9-2) TSH (0.300-4.500) uIu/ml Specimen Hemolysis Urine Color Urine Appearance (Clear) Urine pH (4.5-7.5) Ur Specific [place] (1.000-1.030) Urine Protein (Negative) Urine Glucose (UA) (Negative) Urine Ketones (Negative) Urine Blood (Negative) Urine Nitrite (Negative) Urine Bilirubin (Negative) Urine Urobilinogen (Negative) Ur Leukocyte Esterase (Negative) Digoxin (0.8-2.0) ng/ml Ethyl Alcohol mg/dL (0-3) mg/dl SARS-CoV-2, RNA, NAAT (NEGATIVE) 04/18/21 04/18/21 04/18/21 Range/Units 19:38 19:37 17:44 WBC (4.8-10.8) K/uL RBC (4.7-6.1) M/uL Hgb (14.0-18.0) g/dL Hct (42-52) % MCV (80-100) fL MCH (25-34) pg MCHC (32-36) g/dL RDW Std Deviation (36.4-46.3) fL RDW Coeff of Kayy (11.5-14.5) % Plt Count (130-400) K/uL MPV (7.4-10.4) fL Immature Gran % (Auto) % Neut % (Auto) % Lymph % (Auto) % [place] % (Auto) % Eos % (Auto) % Baso % (Auto) % Neut # (Auto) (1.4-6.5) K/uL Lymph # (Auto) (1.2-3.4) K/uL [place] # (Auto) (0.11-0.59) K/uL Eos # (Auto) (0-0.5) K/uL Baso # (Auto) (0-0.2) K/uL Immature Gran # (Auto) (0.00-0.02) K/uL PT (9.0-12.0) Seconds INR (0.9-1.1) ABG pH 7.46 H (7.35-7.45) ABG pCO2 39 (35-46) mmHg ABG pO2 74 L (80-95) mmHg ABG HCO3 27 H (19-24) mmol/L ABG O2 Saturation 95.5 H (90-95) % ABG Base Excess 3.2 H (-9-1.8) mEq/L [place] Test Pos (Pos) Barometric Pressure 726.7 mm/Hg Oxygen Given ROOM AIR Sodium (136-145) mmol/L Potassium (3.5-5.1) mmol/L Chloride (98-107) mmol/L Carbon Dioxide (21-32) mmol/L Anion Gap (3-11) BUN (7-18) mg/dl Creatinine (0.6-1.4) mg/dl Est Cr Clr Drug Dosing Est GFR ( Amer) ml/min Est GFR (Non-Af Amer) ml/min BUN/Creatinine Ratio (10-20) Glucose (70-99) mg/dl Estimat Average Glucose Hemoglobin A1c Calcium (8.5-10.1) mg/dl Total Bilirubin (0.2-1) mg/dl AST (15-37) U/L ALT (12-78) Alkaline Phosphatase (45-117) U/L Ammonia 13.1 (11-32) umol/L Total Creatine Kinase (39-308) U/L Troponin I (0-0.045) ng/ml Total Protein (6.4-8.2) gm/dl Albumin (3.4-5.0) gm/dl Globulin (2.5-4.0) gm/dl Albumin/Globulin Ratio (0.9-2) TSH (0.300-4.500) uIu/ml Specimen Hemolysis Urine Color Urine Appearance (Clear) Urine pH (4.5-7.5) Ur Specific [place] (1.000-1.030) Urine Protein (Negative) Urine Glucose (UA) (Negative) Urine Ketones (Negative) Urine Blood (Negative) Urine Nitrite (Negative) Urine Bilirubin (Negative) Urine Urobilinogen (Negative) Ur Leukocyte Esterase (Negative) Digoxin 0.1 L (0.8-2.0) ng/ml Ethyl Alcohol mg/dL (0-3) mg/dl SARS-CoV-2, RNA, NAAT (NEGATIVE) 04/18/21 04/18/21 04/18/21 Range/Units 17:44 17:44 16:56 WBC (4.8-10.8) K/uL RBC (4.7-6.1) M/uL Hgb (14.0-18.0) g/dL Hct (42-52) % MCV (80-100) fL MCH (25-34) pg MCHC (32-36) g/dL RDW Std Deviation (36.4-46.3) fL RDW Coeff of Kayy (11.5-14.5) % Plt Count (130-400) K/uL MPV (7.4-10.4) fL Immature Gran % (Auto) % Neut % (Auto) % Lymph % (Auto) % [place] % (Auto) % Eos % (Auto) % Baso % (Auto) % Neut # (Auto) (1.4-6.5) K/uL Lymph # (Auto) (1.2-3.4) K/uL [place] # (Auto) (0.11-0.59) K/uL Eos # (Auto) (0-0.5) K/uL Baso # (Auto) (0-0.2) K/uL Immature Gran # (Auto) (0.00-0.02) K/uL PT 11.9 (9.0-12.0) Seconds INR 1.2 H (0.9-1.1) ABG pH (7.35-7.45) ABG pCO2 (35-46) mmHg ABG pO2 (80-95) mmHg ABG HCO3 (19-24) mmol/L ABG O2 Saturation (90-95) % ABG Base Excess (-9-1.8) mEq/L [place]um Test (Pos) Barometric Pressure mm/Hg Oxygen Given Sodium (136-145) mmol/L Potassium (3.5-5.1) mmol/L Chloride (98-107) mmol/L Carbon Dioxide (21-32) mmol/L Anion Gap (3-11) BUN (7-18) mg/dl Creatinine (0.6-1.4) mg/dl Est Cr Clr Drug Dosing Est GFR ( Amer) ml/min Est GFR (Non-Af Amer) ml/min BUN/Creatinine Ratio (10-20) Glucose (70-99) mg/dl Estimat Average Glucose Hemoglobin A1c Calcium (8.5-10.1) mg/dl Total Bilirubin (0.2-1) mg/dl AST (15-37) U/L ALT (12-78) Alkaline Phosphatase (45-117) U/L Ammonia (11-32) umol/L Total Creatine Kinase (39-308) U/L Troponin I (0-0.045) ng/ml Total Protein (6.4-8.2) gm/dl Albumin (3.4-5.0) gm/dl Globulin (2.5-4.0) gm/dl Albumin/Globulin Ratio (0.9-2) TSH (0.300-4.500) uIu/ml Specimen Hemolysis Urine Color Urine Appearance (Clear) Urine pH (4.5-7.5) Ur Specific [place] (1.000-1.030) Urine Protein (Negative) Urine Glucose (UA) (Negative) Urine Ketones (Negative) Urine Blood (Negative) Urine Nitrite (Negative) Urine Bilirubin (Negative) Urine Urobilinogen (Negative) Ur Leukocyte Esterase (Negative) Digoxin (0.8-2.0) ng/ml Ethyl Alcohol mg/dL < 3.0 (0-3) mg/dl SARS-CoV-2, RNA, NAAT NEGATIVE (NEGATIVE) 04/18/21 04/18/21 04/18/21 Range/Units 16:56 16:56 16:56 WBC 6.74 (4.8-10.8) K/uL RBC 4.50 L (4.7-6.1) M/uL Hgb 10.5 L (14.0-18.0) g/dL Hct 34.2 L (42-52) % MCV 76.0 L (80-100) fL MCH 23.3 L (25-34) pg MCHC 30.7 L (32-36) g/dL RDW Std Deviation 47.2 H (36.4-46.3) fL RDW Coeff of Kayy 16.9 H (11.5-14.5) % Plt Count 350 (130-400) K/uL MPV 9.9 (7.4-10.4) fL Immature Gran % (Auto) 0.1 % Neut % (Auto) 55.0 % Lymph % (Auto) 32.5 % [place] % (Auto) 11.1 % Eos % (Auto) 1.0 % Baso % (Auto) 0.3 % Neut # (Auto) 3.70 (1.4-6.5) K/uL Lymph # (Auto) 2.19 (1.2-3.4) K/uL [place] # (Auto) 0.75 H (0.11-0.59) K/uL Eos # (Auto) 0.07 (0-0.5) K/uL Baso # (Auto) 0.02 (0-0.2) K/uL Immature Gran # (Auto) 0.01 (0.00-0.02) K/uL PT (9.0-12.0) Seconds INR (0.9-1.1) ABG pH (7.35-7.45) ABG pCO2 (35-46) mmHg ABG pO2 (80-95) mmHg ABG HCO3 (19-24) mmol/L ABG O2 Saturation (90-95) % ABG Base Excess (-9-1.8) mEq/L [place]um Test (Pos) Barometric Pressure mm/Hg Oxygen Given Sodium 134 L (136-145) mmol/L Potassium 4.1 (3.5-5.1) mmol/L Chloride 99 (98-107) mmol/L Carbon Dioxide 27 (21-32) mmol/L Anion Gap 8.0 (3-11) BUN 13 (7-18) mg/dl Creatinine 1.09 (0.6-1.4) mg/dl Est Cr Clr Drug Dosing Not Reportable Est GFR ( Amer) 78.2 ml/min Est GFR (Non-Af Amer) 67.5 ml/min BUN/Creatinine Ratio 12.0 (10-20) Glucose 103 H (70-99) mg/dl Estimat Average Glucose Hemoglobin A1c Calcium 9.4 (8.5-10.1) mg/dl Total Bilirubin 0.8 (0.2-1) mg/dl AST 28 (15-37) U/L ALT 13 (12-78) Alkaline Phosphatase 88 (45-117) U/L Ammonia (11-32) umol/L Total Creatine Kinase 627 H (39-308) U/L Troponin I < 0.015 (0-0.045) ng/ml Total Protein 8.4 H (6.4-8.2) gm/dl Albumin 3.4 (3.4-5.0) gm/dl Globulin 5.0 H (2.5-4.0) gm/dl Albumin/Globulin Ratio 0.7 L (0.9-2) TSH 1.290 (0.300-4.500) uIu/ml Specimen Hemolysis Urine Color Yellow Urine Appearance Clear (Clear) Urine pH 5.5 (4.5-7.5) Ur Specific [place] 1.007 (1.000-1.030) Urine Protein Negative (Negative) Urine Glucose (UA) Negative (Negative) Urine Ketones Negative (Negative) Urine Blood Negative (Negative) Urine Nitrite Negative (Negative) Urine Bilirubin Negative (Negative) Urine Urobilinogen Negative (Negative) Ur Leukocyte Esterase Negative (Negative) Digoxin (0.8-2.0) ng/ml Ethyl Alcohol mg/dL (0-3) mg/dl SARS-CoV-2, RNA, NAAT (NEGATIVE) Diagnostic Findings Chest X-Ray 04/18/21 16:53 SINGLE VIEW CHEST CLINICAL HISTORY: Change in mental status. FINDINGS: 2 AP, portable, upright chest radiographs are compared to chest x-ray and chest CT dated 05/09/2020. The examination is degraded by portable technique and patient rotation. The heart is enlarged. The pulmonary vasculature is noncongested. Advanced emphysema and chronic interstitial thickening are similar to previous. There is no airspace consolidation typical for pneumonia or large pleural effusion. Scarring/atelectasis is noted at the lung bases. No pneumothorax is seen. The skeletal structures are osteopenic. There are chronic/healed left-sided rib fractures. IMPRESSION: Cardiomegaly and emphysema with no acute cardiopulmonary abnorm ality. ACT 112: Negative or not required by law. Electronically signed by: Sammy Leal M.D. 04/18/2021 5:[address] 04/18/21 16:53 CT SCAN OF THE BRAIN WITHOUT IV CONTRAST CLINICAL HISTORY: Change in mental status COMPARISON STUDY: CT of the brain dated 05/09/2020. TECHNIQUE: Unenhanced axial CT scan of the brain is performed from the vertex to the skull base. A dose lowering technique was utilized adhering to the principles of ALARA. CT DOSE: 638.56 mGycm FINDINGS: Brain parenchyma: There are age-related involutional changes noting moderate subcortical and periventricular microangiopathic change. There is no hemorrhage, mass effect, or evidence of acute territorial ischemia by CT criteria. Gonzáles- white matter differentiation is preserved. No extra-axial fluid collection is seen. A tiny chronic lacunar infarct is noted in the right caudate head. Ventricles, sulci, cisterns: Prominent secondary to involutional change. Intracranial vasculature: There is atherosclerotic calcification of the cavernous carotid and vertebral arteries. Calvarium: Unremarkable. Sinuses and mastoids: The visualized paranasal sinuses are clear. The mastoid air cells are well pneumatized. Orbits: The bony orbits are grossly intact. IMPRESSION: There is no hemorrhage, mass effect, or evidence of acute territorial ischemia by CT criteria. ACT 112: Negative or not required by law. Electronically signed by: Sammy Leal M.D. 04/18/2021 5:25 PM Medications Administered Apixaban (Apixaban 5 Mg Tablet) 5 mg PO BID [facility] Stop: 05/18/21 22:18 Last Admin: 04/19/21 09:30 Dose: 5 mg Documented by: [id number] Admin: 04/18/21 23:28 Dose: 5 mg Documented by: [id number] Atorvastatin Calcium (Atorvastatin 20 Mg Tab) 20 mg PO QAM [facility] Stop: 05/19/21 08:59 Last Admin: 04/19/21 09:30 Dose: 20 mg Documented by: [id number] Admin: 04/18/21 23:28 Dose: 20 mg Documented by: [id number] Gabapentin (Gabapentin 600 Mg Tab) 600 mg PO TID [facility]ITZA Stop: 05/18/21 22:18 Last Admin: 04/19/21 09:30 Dose: 600 mg Documented by: [id number] Admin: 04/18/21 23:28 Dose: 600 mg Documented by: [id number] Haloperidol Lactate (Haloperidol Lactate 5 Mg/Ml 1 Ml Vial) 5 mg IM Q6H PRN PRN Reason: hallucinations, injury risk Stop: 05/18/21 22:15 Last Admin: 04/19/21 03:14 Dose: 5 mg Documented by: [id number] Metoprolol Succinate (Metoprolol Succ 50mg Ext Rel Tab) 50 mg PO BID [facility] Stop: 05/18/21 22:18 Last Admin: 04/19/21 09:30 Dose: 50 mg Documented by: [id number] Admin: 04/18/21 23:28 Dose: 50 mg Documented by: [id number] Miscellaneous (Colazal~Order Awaiting Action) 1 ea N/A QS [facility] Stop: 05/18/21 22:44 Last Admin: 04/19/21 00:52 Dose: Not Given Documented by: [id number] Admin: 04/19/21 00:52 Dose: Not Given Documented by: [id number] Pantoprazole Sodium (Pantoprazole 40 Mg Tab) 40 mg PO BID [facility] Stop: 05/18/21 22:18 Last Admin: 04/19/21 09:30 Dose: 40 mg Documented by: [id number] Admin: 04/18/21 23:28 Dose: 40 mg Documented by: [id number] Coding Level of Care Code 43115 Inpt Consult Level 3 Diagnoses Altered mental status R41.82 Major neurocognitive disorder F03.90
--- NOTE | 2021-04-19 15:07 | Hospitalist Progress Note ---
Date of Service April 19, 2021 Assessment & Plan (1) Hallucinations: Plan: Altered Mental Status w/ Hallucinations - Patient's brother Kendall was reached by phone at [phone]. He reports that the patient had been living with his until 2 months ago when she left him, is not aware of the details of why or what happened. Reports that pt has been living alone since then, is not sure if anyone helps with medication but suspects that he is just not taking them. Notes that there is a family history of several uncles with Alzheimer's dementia which manifested in the late 60s. Reports patient is very hard of hearing, and one-point to doctors appointments and other places generally will just not talk to will respond. Brother is unsure if he is oriented at baseline, of note mini cog has decreased in the previous few months had dropped from prior normal to 0/5 on outpatient assessments. - When asked if there is family that could help care for him or take him in if it is mental status was not completely reversible, brother said he was not sure he would have to call around but was not confident anyone would be able to help care for him. Discussed that this may be necessary, and to start conversations with family. Brother agreeable, will update in the morning. Brother also reports he is not sure who would help make decisions for the patient if the patient is unable to make decisions for himself. As he is with his , however she has left him 2 months ago for unknown reasons and has not been able to be reached by phone. - Several uncles with Alzheimers dementia which developed ~age 60s. - Brother Kendall and sister in law Alexandrea [phone] - Ammonia normal, no CO2 retention - Pt with afib, suspected med noncompliance. CT-H naf, given ischemic risk MRI-B ordered for additional eval - Psych consulted appreciate recs. Recommend continued medical eval due to relatively acute onset. Haldol q4h PRN for halluncinations if at risk to self others, note if lewy body dementia is high risk for EPS and to monitor closely. - UA negative for infection - Alcohol level negative - CK elevated, no reports of pt being down but lives alone last 2 mo and concerned for poor self care and dehydrating contributing to acute presentation. Trend, continue IVFM. - CM consulted, if pt has impaired baseline and is not safe for discharge home alone following medical eval/treatment, is unclear what support he would have or what plaement would be required. Family discussing as above. (2) Confusion: Plan: Suspect underlying dementia ?Lewy body with visual and auditory hallucinations as above (3) Atrial fibrillation: Plan: Continue Eliquis 5mg PO BID for anticoagulation Continue metoprolol succinate 50mg PO BID for rate control (4) Chronic obstructive pulmonary disease: Plan: No acute exacerbation no [employer] maintenance inhalers for this. (5) Diabetes mellitus type II, controlled: Plan: HbA1C 6.05 November 2019, will repeat with AM labs Glucose 103 on admission, do not suspect he will need insulin coverage and repeated finger sticks likely to add to delirium therefore will keep on regular diet and repeat glucose levels in AM. 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 Continue aspirin and atorvastatin. 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 Patient's brother Kendall was reached by phone at [phone]. He reports that the patient had been living with his until 2 months ago when she left him, is not aware of the details of why or what happened. Reports that Norberto has been living alone since then, is not sure if anyone helps with medication but suspects that he is just not taking them. Notes that there is a family history of several uncles with Alzheimer's dementia which manifested in the late 60s. Reports patient is very hard of hearing, and one-point to doctors appointments and other places generally will just not talk to will respond. Brother is un sure if he is oriented at baseline, of note mini cog has decreased in the previous few months had dropped from prior normal to 0/5 on outpatient assessments. When asked if there is family that could help care for him or take him in if it is mental status was not completely reversible, brother said he was not sure he would have to call around but was not confident anyone would be able to help care for him. Discussed that this may be necessary, and to start conversations with family. Brother agreeable, will update in the morning Brother also reports he is not sure who would help make decisions for the patient if the patient is unable to make decisions for himself. As he is with his , however she has left him 2 months ago for unknown reasons and has not been able to be reached by phone. Review of Systems Review of Systems: All systems reviewed & are unremarkable except as noted in Subjective Physical Exam Physical Exam: General: No acute distress. Opens eyes to voice, very hard of hearing. Does not give meaningful answers to questions or follow commands. Oriented to name only. HEENT: Atraumatic, normocephalic.Extremely hard of hearing, visual acuity grossly intact. Pulm: CTAB A&P. -wheezes, -rales, -rhonchi. Symmetrical chest rise. No increase work of breathing. No respiratory distress. Cardiac: RRR, -mrg. Radial pulses intact and symmetrical. Abdominal: Nontender, nondistended, soft. BS present. Results & Data Results & Data ([facility]) Vital Signs (Past 12 Hours) Vital Signs Pulse Resp BP Pulse Ox 04/19/21 09:19 62 16 157/82 H 98 PG Care Time/CCT Total # of Minutes Spent Total Time Spent with Patient: Total time spent is greater than 50% in coordination of care (as documented) at patient's floor/unit and/or counseling patient: Coding Level of Care Code 15972 Subseq Hosp Care Lvl 2 Diagnoses Hallucinations R44.3 Confusion R41.0 Atrial fibrillation I48.91 Atrial fibrillation type: unspecified Chronic obstructive pulmonary disease J44.9 Diabetes mellitus type II, controlled E11.9 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
[2021-04-19] MEDS: IRON POLYSACCHARIDE COMPLEX 150 MG CAPSULE PO SCH (18:19)
[2021-04-19] MEDS: THIAMINE HCL 100 MG in SYRINGE 9 ML IV SCH (18:19)
--- NOTE | 2021-04-19 18:23 | Magnetic Resonance Report ---
MR brain wo con HISTORY: 71 years-old Male acute AMS, hx afib off meds, ?ischemic etio acutely altered mental status COMPARISON: Head CT 04/18/2021, brain MRI 07/21/2016 TECHNIQUE: Multiplanar multisequence MRI of the brain was obtained without the use of IV contrast. FINDINGS: There is no restricted diffusion to suggest acute or subacute infarct. Midline structures appear unre markable. No acute intracranial hemorrhage, midline shift, abnormal extra-axial collection, hydroceph alus or intracranial mass. Age-related involutional changes with extensive T2/FLAIR hyperintense foci again noted throughout the white matter, progressed from prior. The cerebral venous sinuses and major arterial flow voids appear patent. The mastoid air cells and pa ranasal sinuses are generally clear. The skull, orbits and soft tissues are unremarkable. IMPRESSION: 1. No acute intracranial abnormality. No acute or subacute infarct. 2. Age-related involutional changes with extensive chronic microvascular ischemic disease. ACT 112: Negative or not required by law. The above report was generated using voice recognition software. It may contain grammatical, syntax o r spelling errors. Electronically signed by: German Aguilar M.D. 04/19/2021 6:21 PM
[2021-04-19] MEDS ORDERED: INFLUENZA VACCINE HIGH DOSE PF 65+ 0.7 ML SYR IM ONE (18:45)
[2021-04-20 06:35] LABS: Basophils # (auto) 0.04 K/uL (0-0.2); Basophils % (auto) 0.5 %; Eosinophils # (auto) 0.12 K/uL (0-0.5); Eosinophils % (auto) 1.5 %; Hematocrit (blood only) 39.3 % (42-52); Hemoglobin 11.8 g/dL (14.0-18.0); Immature Granulocytes # (auto) 0.02 K/uL (0.00-0.02); Immature Granulocytes % (auto) 0.2 %; Lymphocytes # (auto) 1.74 K/uL (1.2-3.4); Lymphocytes % (auto) 21.2 %; Mean Corpuscular Hemoglobin 23.1 pg (25-34); Mean Corpuscular Volume 76.9 fL (80-100); Mean Platelet Volume 10.2 fL (7.4-10.4); Monocytes # (auto) 0.82 K/uL (0.11-0.59); Neutrophils # (auto) 5.48 K/uL (1.4-6.5); Neutrophils % (auto) 66.6 %; Platelet Count 373 K/uL (130-400); RDW Coefficient of Variation 16.9 % (11.5-14.5); Red Blood Count 5.11 M/uL (4.7-6.1); White Blood Count 8.22 K/uL (4.8-10.8)
[2021-04-20 07:03] LABS: BUN Creatinine Ratio 15.9 (10-20); Calcium 8.7 mg/dl (8.5-10.1); Creatinine Clr Calc Pharmacy 64.2 ml/min; Est GFR (African American) 83.7 ml/min; Est GFR (Non-African American) 72.2 ml/min; Potassium 3.9 mmol/L (3.5-5.1)
[2021-04-20 07:07] LABS: Ferritin 18.9 ng/ml (8-388)
[2021-04-20 07:39] LABS: Estimated Average Glucose 137 mg/dl; Hemoglobin A1C 6.4 % (4.5-5.6)
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
[2021-04-20 07:54] LABS: Folate (Folic Acid) 8.8 ng/ml (>5.38)
[2021-04-20] MEDS: ATORVASTATIN 20 MG TAB PO SCH (08:23)
[2021-04-20] MEDS: THIAMINE HCL 100 MG in SYRINGE 9 ML IV SCH (08:23)
[2021-04-20] MEDS: APIXABAN 5 MG TABLET PO SCH ×2 (08:23→20:41)
[2021-04-20] MEDS: IRON POLYSACCHARIDE COMPLEX 150 MG CAPSULE PO SCH (08:23)
[2021-04-20] MEDS: PANTOprazole 40 MG TAB PO SCH ×2 (08:24→20:41)
[2021-04-20] MEDS: GABAPENTIN 600 MG TAB PO SCH ×3 (08:24→20:41)
[2021-04-20] MEDS: METOPROLOL SUCC 50MG EXT REL TAB PO SCH ×2 (08:25→20:41)
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
[2021-04-21] MEDS: PANTOprazole 40 MG TAB PO SCH ×2 (08:13→20:43)
[2021-04-21] MEDS: GABAPENTIN 600 MG TAB PO SCH ×3 (08:13→20:42)
[2021-04-21] MEDS: METOPROLOL SUCC 50MG EXT REL TAB PO SCH ×2 (08:13→20:42)
[2021-04-21] MEDS: APIXABAN 5 MG TABLET PO SCH ×2 (08:14→20:42)
[2021-04-21] MEDS: IRON POLYSACCHARIDE COMPLEX 150 MG CAPSULE PO SCH (08:14)
[2021-04-21] MEDS: THIAMINE HCL 100 MG in SYRINGE 9 ML IV SCH (08:14)
[2021-04-21 09:33] LABS: BUN Creatinine Ratio 16.3 (10-20); Creatinine Clr Calc Pharmacy 54.6 ml/min; Est GFR (African American) 68.9 ml/min; Est GFR (Non-African American) 59.5 ml/min; Potassium 4.1 mmol/L (3.5-5.1)
--- NOTE | 2021-04-21 17:44 | Billing Data ---
Date of Service April 21, 2021 Coding Level of Care Code 08358 Subseq Hosp Care Lvl 1
--- NOTE | 2021-04-21 17:44 | Billing Data ---
Date of Service April 20, 2021 Coding Level of Care Code 76019 Subseq Hosp Care Lvl 1
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
[2021-04-22 09:04] LABS: BUN Creatinine Ratio 18.3 (10-20); Calcium 8.9 mg/dl (8.5-10.1); Est GFR (Non-African American) 61.3 ml/min
[2021-04-22] MEDS: METOPROLOL SUCC 50MG EXT REL TAB PO SCH (09:22)
[2021-04-22] MEDS: PANTOprazole 40 MG TAB PO SCH (09:22)
[2021-04-22] MEDS: GABAPENTIN 600 MG TAB PO SCH (09:22)
[2021-04-22] MEDS: IRON POLYSACCHARIDE COMPLEX 150 MG CAPSULE PO SCH (09:23)
[2021-04-22] MEDS: APIXABAN 5 MG TABLET PO SCH (09:23)
[2021-04-22] MEDS: THIAMINE HCL 100 MG in SYRINGE 9 ML IV SCH ×2 (09:24→10:02)
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
--- NOTE | 2021-04-22 17:55 | Billing Data ---
Date of Service April 22, 2021 Coding Level of Care Code D/C DAY MANAGEMENT >30 MINS
== END 2021-04-22 14:02 | disposition home health service (06) ==
LOC: ED 16:42 → EDINP 16:42 → SUATTDRO 19:43 → EDINP 04-19 16:00 → 3N 04-19 16:25
DX: R41.82 Altered mental status, unspecified; Z20.822 Contact with and (suspected) exposure to COVID-19; F03.90 Unspecified dementia, unspecified severity, without behavioral disturbance, psychotic disturbance, mood disturbance, and anxiety; J44.9 Chronic obstructive pulmonary disease, unspecified; Z79.01 Long term (current) use of anticoagulants; Z79.82 Long term (current) use of aspirin; Z79.84 Long term (current) use of oral hypoglycemic drugs; E78.5 Hyperlipidemia, unspecified; Z79.899 Other long term (current) drug therapy; K51.20 Ulcerative (chronic) proctitis without complications; E11.9 Type 2 diabetes mellitus without complications; I71.4 Abdominal aortic aneurysm, without rupture; Z79.51 Long term (current) use of inhaled steroids; I48.91 Unspecified atrial fibrillation; R41.0 Disorientation, unspecified; R44.3 Hallucinations, unspecified; F17.210 Nicotine dependence, cigarettes, uncomplicated; K21.9 Gastro-esophageal reflux disease without esophagitis

== ENCOUNTER 2023-05-04 15:34 | Inpatient (IN) ==
--- NOTE | 2023-05-04 16:40 | XRay Report ---
XR chest 1V not portable HISTORY: 73 years-old Male sob acute shortness of breath COMPARISON: 04/18/2021 TECHNIQUE: PA view of the chest FINDINGS: Cardiac megaly with pulmonary vascular congestion, bilateral mixed interstitial and alveolar opacitie s. No pneumothorax. Small right pleural effusion. Healed chronic left-sided rib fractures. Degenerati ve changes of the shoulders and spine. Emphysema. IMPRESSION: 1. Mixed interstitial and alveolar opacities suggestive of multifocal pneumonia. 2. Pulmonary emphysema. 3. Small right pleural effusion. ACT 112: Negative or not required by law. The above report was generated using voice recognition software. It may contain grammatical, syntax o r spelling errors. Electronically signed by: German Aguilar M.D. 05/04/2023 4:39 PM
[2023-05-04 18:08] LABS: Alanine Aminotransferase 3 U/L (7-52); Albumin Globulin Ratio 1.2 (0.9-2); Albumin Level 4.3 gm/dl (3.4-5.0); Alkaline Phosphatase 52 U/L (34-104); Anion Gap 7 (3-11); Aspartate Aminotransferase 21 U/L (13-39); BUN Creatinine Ratio 17.2 (10-20); Bilirubin,Total 1.9 mg/dl (0.2-1.0); Blood Urea Nitrogen 16 mg/dl (6-23); Calcium 9.1 mg/dl (8.6-10.3); Carbon Dioxide 28 mmol/L (21-32); Chloride 99 mmol/L (98-107); Est GFR (African American) 93.4 ml/min; Est GFR (Non-African American) 80.6 ml/min; Globulin 3.5 gm/dl (2.5-4.0); Glucose 99 mg/dl (70-99(Fasting)); Potassium 4.3 mmol/L (3.5-5.1); Sodium 134 mmol/L (136-145); Total Protein 7.8 gm/dl (6.0-8.3)
[2023-05-04 18:11] LABS: Hematocrit (blood only) 31.3 % (42.0-52.0); Hemoglobin 8.3 g/dl (14.0-18.0); Mean Corpuscular Hemoglobin 17.7 pg (25.0-34.0); Mean Corpuscular Hgb Conc 26.5 g/dL (32.0-36.0); Mean Corpuscular Volume 66.9 fL (80.0-100.0); Mean Platelet Volume 10.8 fL (9.4-12.4); Platelet Count 278 K/uL (130-400); RDW Coefficient of Variation 19.5 % (11.5-14.5); RDW Standard Deviation 45.5 fL (36.4-46.3); Red Blood Count 4.68 M/uL (4.70-6.10)
[2023-05-04 18:12] LABS: Troponin I High Sensitivity 22.4 pg/ml (0-20)
[2023-05-04 18:13] LABS: Acanthocytes 1+; Basophils # (auto) 0.03 K/uL (0.00-0.20); Basophils % (auto) 0.4 %; Eosinophils # (auto) 0.16 K/uL (0.00-0.50); Eosinophils % (auto) 2.4 %; Hypochromasia Present; Immature Granulocytes # (auto) 0.07 K/uL (0.01-0.20); Lymphocytes # (auto) 0.67 K/uL (1.20-3.40); Lymphocytes % (auto) 9.9 %; Microcytosis Present; Monocytes # (auto) 0.52 K/uL (0.11-0.59); Monocytes % (auto) 7.6 %; Neutrophils # (auto) 5.35 K/uL (1.40-6.50); Neutrophils % (auto) 78.7 %; Ovalocytes 2+; Polychromasia 1+
[2023-05-04 18:15] LABS: Influenza A virus by PCR Negative (Neg); Influenza B virus by PCR Negative (Neg); RSV by PCR Negative (Neg)
[2023-05-04 18:17] LABS: INR 1.2 (0.9-1.1); Partial Thromboplastin Ratio 0.7; Partial Thromboplastin Time 20 Seconds (21-31); Prothrombin Time 13.5 Seconds (9.0-12.0)
[2023-05-04 19:07] LABS: SARS CoV2 RNA(COVID-19) Ceph POSITIVE (Negative)
[2023-05-04] MEDS ORDERED: DEXAMETHASONE SOD INJ 4 MG/ML VIAL IV STA (19:32)
[2023-05-04] MEDS ORDERED: cefTRIAXone SODIUM 2,000 MG/50 ML BAG IV STA (19:32)
[2023-05-04] MEDS ORDERED: AZITHROMYCIN 500 MG in DEXTROSE 5% 250 ML IV STA (19:32)
--- NOTE | 2023-05-04 19:36 | Emergency Department Note ---
Impression & Plan Hypoxic respiratory failure, Atrial fibrillation with RVR, COVID-19, Anemia, Elevated troponin ED Provider Note NAME: OTTO BARRAGAN AGE: 73 SEX: M : 1950 ARRIVES VIA: Ambulance INFORMANT: Patient ED PROVIDER(S): Juan Smith DO CHIEF COMPLAINT: shortness of breath HPI: Patient is a 73-year-old male with a past medical history of diabetes, cardiomyopathy, A-fib and hypertension who presents to the ER for shortness of breath. Symptoms started within the past 2 days. Cough and congestion have been present. He denies any belly pain, nausea, vomiting, or diarrhea. Does have some intermittent left-sided chest pain. Does not have any now. No dysuria, urgency, or frequency. He was brought in by EMS. EMS thought that he was confused. ADDITIONAL HISTORY OBTAINED: Per HPI Chronic Medical/Social Conditions Affecting Care: Per HPI PAST MEDICAL HISTORY:See Below PAST SURGICAL HISTORY:See Below FAMILY HISTORY:See Below SOCIAL HISTORY:See Below HOME MEDICATIONS:See Below ALLERGIES:See Below VITALS:See Below PHYSICAL EXAMINATION: GENERAL: Sitting up in bed, alert, ill-appearing, disheveled, hard of hearing EYE EXAM: normal conjunctiva. OROPHARYNX: mucous membranes are moist NECK: supple, no nuchal rigidity, no adenopathy, non-tender LUNGS: Faint wheezing bilaterally. Normal chest wall mechanics HEART: no murmurs, S1 normal and S2 normal ABDOMEN: abdomen soft, non-tender, normo-active bowel sounds, no masses, no rebound or guarding. UPPER EXTREMITIES: upper extremities are grossly normal. LOWER EXTREMITIES: No pitting edema. NEURO EXAM: Normal sensorium, cranial nerves II-XII grossly intact, normal speech, no gross weakness of arms, no gross weakness of legs. No drift. Finger to nose intact. Gross sensation intact. MEDICAL DECISION MAKING: Patient is a 73-year-old male who presents ER for above-stated complaint. IV was established blood work is obtained. He was found to be hypoxic and placed on 2 L nasal cannula. On apixaban. Labs show no significant leukocytosis. Mild anemia at 8.3. INR 1.2. BMP along with LFTs was unremarkable. T. bili slightly up at 1.9. Troponin mildly up at 22 likely secondary to the hypoxia and COVID. Chest x-ray shows multifocal infiltrate. Patient was given IV antibiotics and fluids. Updated bedside. Patient was given steroids and and neb treatment and admitted for further workup. Discussed with hospitalist for further management. Consults/Care Managements Discussions: Per MDM Triage Nursing notes reviewed. Limited review of prior medical records performed Vital Signs: reviewed and remarkable for tachy Differential diagnosis: Differential diagnoses includes but is not limited to pneumonia, bronchitis, COPD/Asthma exacerbation, pneumothorax, pulmonary embolism, congestive heart failure, acute coronary syndrome ER treatment provided: See below Diagnostics interpreted by me include EKG and cardiac monitoring as listed below: -Cardiac Monitoring: An order was placed for continuous cardiac monitoring. The monitor shows a rate of 130 with Afib rhythm. -ECG: A-fib with RVR rate of 116 Left axis No PVCs QTc 478 -Laboratory studies:Interpreted by me as stated above in MDM and shown below. Imaging studies: Xrays: As interpreted by me: Portable AP upright 1 view of the chest shows bilateral infiltrates CTs show: none Procedures:none Critical Care: I have personally spent 32 minutes of critical care time in the direct management of this patient. This includes bedside care, interpretation of diagnostic studies, and testing, discussion with consultants, patient, and family members, and other required patient management activities. This 32 minutes is in excess of all separately billable procedures. Past Med/Surg History Medical History AAA (abdominal aortic aneurysm) Atrial fibrillation Avascular necrosis Benign prostatic hyperplasia with lower urinary tract symptoms Chronic cerebral ischemia Chronic obstructive pulmonary disease CMV colitis Depression Diabetes mellitus, type 2 Diabetic neuropathy Disc degeneration, lumbar Diverticulosis of colon GERD (gastroesophageal reflux disease) GI bleed Hearing loss Hiatal hernia HTN (hypertension) Hyperlipidemia Kidney stones Neuropathy Poor historian Prostate cancer Pulmonary nodules Ulcerative colitis Surgical History H/O excision of mass (06/15/22) History of AAA (abdominal aortic aneurysm) repair History of cataract surgery History of colon resection History of colonoscopy History of lithotripsy History of prostate biopsy History of tooth extraction S/P prostatectomy Family History Brother Family history of diabetes mellitus FHx: prostate cancer Dementia Sister Family history of diabetes mellitus Breast cancer Family/Other Family history of diabetes mellitus Father Lung cancer Sister Myocardial infarction, Onset Age: 66 Other No family history of adverse response to anesthesia Denies family history of Ovarian cancer Prostate cancer Colorectal cancer Social History Smoking Status: Never smoker Second Hand Exposure: No; Do You Dip or Chew Tobacco: No; Tobacco Cessation Education Requested by Patient: No Hx Alcohol Use: No Hx Substance Use: No Preferred Language: Sinhala Communication Ability: Effective Communication Ability Comment: DEAF LEFT EAR/GTZ RIGHT EAR-DOESN'T USUALLY WEAR Visual Impairment: No Limitations Hearing Ability: Hard of Hearing Digital Communications Manager Required: No Beliefs That Will Affect Care: None marital status: Current Living Situation: Alone Current Living Situation Comment: Brother with be with patient at home post procedure current occupational status: retired Other Information That Helps Us Care for You: No Feels Safe at Home: Yes Safety Concerns: Feels Safe At This Time Childhood Exposure to Second-Hand Smoke: Yes Diet: regular caffeine: Yes during the past year weight has: remained stable Dental Care, Regularly: No Physical Activity Frequency: Daily Seatbelt Use: always Sunscreen Use: No Assistive Devices: Hearing Aid - Bilateral Allergies Allergies Allergy/AdvReac Type Severity Reaction Status Date / Time ciprofloxacin [Cipro] Allergy Severe hives Verified 05/04/23 21:10 azithromycin AdvReac Intermediate dizzy, Verified 05/04/23 21:10 vomitting Home Meds Home Medications Medication Instructions Recorded Confirmed aspirin 81 mg tablet,delayed 81 mg PO QAM 10/16/19 05/04/23 release (Adult Low Dose Aspirin) metformin 500 mg tablet 500 mg PO BID 05/04/23 05/04/23 pantoprazole 40 mg tablet,delayed 40 mg PO BID 05/04/23 05/04/23 release Previous Rx's Medication Instructions Recorded blood-glucose meter #1 ea 12/06/18 albuterol sulfate 90 mcg/actuation 2 puff inhalation Q6H PRN Wheezing 05/04/22 aerosol inhaler (ProAir HFA) #8.5 grams ipratropium 20 mcg-albuterol 100 1 puff inhalation QID #4 grams 05/04/22 mcg/actuation mist for inhalation (Combivent Respimat) apixaban 5 mg tablet (Eliquis) 5 mg PO Q12H #180 tabs 08/17/22 balsalazide 750 mg capsule 2,250 mg (3 x 750 mg) PO TID 90 11/10/22 (Colazal) days #810 caps atorvastatin 20 mg tablet 20 mg PO QAM #90 tabs 01/06/23 gabapentin 600 mg tablet 600 mg PO TID #90 tabs 01/06/23 (Neurontin) metoprolol succinate 50 mg 50 mg PO BID #180 tabs 01/06/23 tablet,extended release 24 hr (Toprol XL) Results & Data (ED) Vital Signs Vital Signs - 24 hr 05/04/23 15:49 05/04/23 19:23 05/04/23 19:30 Temperature 36.8 C Temperature Source Temporal Artery Scan Pulse Rate 124 H 149 H Pulse Rate [Apical] 109 H Respiratory Rate 20 22 Respiratory Effort / Characteristics Non-Labored Spontaneous Respiratory Depth Normal Blood Pressure 131/82 Blood Pressure [Right Arm] 131/90 Blood Pressure Mean 98 Blood Pressure Mean [Right Arm] 103 Blood Pressure Position Sitting Pulse Oximetry 100 Oxygen Delivery Method Nasal Cannula Nasal Cannula Oxygen Flow Rate 6 6 Sepsis Recent Fever Within 48 Hours No Sepsis New/Unexplained Change in Mental Status No Sepsis Action Taken by Nursing No Action Required 05/04/23 20:00 05/04/23 20:02 05/04/23 20:04 Temperature Temperature Source Pulse Rate 110 H Pulse Rate [Apical] Respiratory Rate 20 Respiratory Effort / Characteristics Respiratory Depth Blood Pressure Blood Pressure [Right Arm] Blood Pressure Mean Blood Pressure Mean [Right Arm] Blood Pressure Position Pulse Oximetry 99 Oxygen Delivery Method Nasal Cannula Nasal Cannula Oxygen Flow Rate 6 6 Sepsis Recent Fever Within 48 Hours Sepsis New/Unexplained Change in Mental Status Sepsis Action Taken by Nursing 05/04/23 20:05 05/04/23 20:09 05/04/23 20:09 Temperature Temperature Source Pulse Rate 122 H Pulse Rate [Apical] Respiratory Rate 24 Respiratory Effort / Characteristics Respiratory Depth Blood Pressure 153/93 H Blood Pressure [Right Arm] Blood Pressure Mean 113 Blood Pressure Mean [Right Arm] Blood Pressure Position Pulse Oximetry 99 94 Oxygen Delivery Method Nasal Cannula Oxygen Flow Rate 6 Sepsis Recent Fever Within 48 Hours Sepsis New/Unexplained Change in Mental Status Sepsis Action Taken by Nursing 05/04/23 20:12 Temperature 36.7 C Temperature Source Oral Pulse Rate Pulse Rate [Apical] 95 H Respiratory Rate 18 Respiratory Effort / Characteristics Non-Labored Respiratory Depth Normal Blood Pressure Blood Pressure [Right Arm] 153/93 H Blood Pressure Mean Blood Pressure Mean [Right Arm] 113 Blood Pressure Position Pulse Oximetry 100 Oxygen Delivery Method Nasal Cannula Oxygen Flow Rate 5 Sepsis Recent Fever Within 48 Hours Sepsis New/Unexplained Change in Mental Status Sepsis Action Taken by Nursing Laboratory Data 05/04/23 17:20 05/04/23 17:20 Lab Results 05/04/23 05/04/23 05/04/23 Range/Units 17:20 19:44 19:55 WBC 6.80 (4.8-10.8) K/ul RBC 4.68 L (4.70-6.10) M/uL Hgb 8.3 L (14.0-18.0) g/dl Hct 31.3 L (42.0-52.0) % MCV 66.9 L (80.0-100.0) fL MCH 17.7 L (25.0-34.0) pg MCHC 26.5 L (32.0-36.0) g/dL RDW Std Deviation 45.5 (36.4-46.3) fL RDW Coeff of Kayy 19.5 H (11.5-14.5) % Plt Count 278 (130-400) K/uL MPV 10.8 (9.4-12.4) fL Immature Gran % (Auto) 1.0 % Neut % (Auto) 78.7 % Lymph % (Auto) 9.9 % [place] % (Auto) 7.6 % Eos % (Auto) 2.4 % Baso % (Auto) 0.4 % Neut # (Auto) 5.35 (1.40-6.50) K/uL Lymph # (Auto) 0.67 L (1.20-3.40) K/uL [place] # (Auto) 0.52 (0.11-0.59) K/uL Eos # (Auto) 0.16 (0.00-0.50) K/uL Baso # (Auto) 0.03 (0.00-0.20) K/uL Immature Gran # (Auto) 0.07 (0.01-0.20) K/uL Polychromasia 1+ Hypochromasia Present Microcytosis Present Ovalocytes 2+ Acanthocytes (Spur) 1+ PT 13.5 H (9.0-12.0) Seconds INR 1.2 H (0.9-1.1) APTT 20 L (21-31) Seconds PTT Ratio 0.7 Sodium 134 L (136-145) mmol/L Potassium 4.3 (3.5-5.1) mmol/L Chloride 99 (98-107) mmol/L Carbon Dioxide 28 (21-32) mmol/L Anion Gap 7 (3-11) BUN 16 (6-23) mg/dl Creatinine 0.93 (0.6-1.4) mg/dl Est Cr Clr Drug Dosing Not Reportable Est GFR ( Amer) 93.4 ml/min Est GFR (Non-Af Amer) 80.6 ml/min BUN/Creatinine Ratio 17.2 (10-20) Glucose 99 (70-99(Fasting)) mg/dl Lactate 1.4 (0.4-2.0) mmol/L Calcium 9.1 (8.6-10.3) mg/dl Magnesium 2.0 (1.7-2.4) mg/dl Total Bilirubin 1.9 H (0.2-1.0) mg/dl AST 21 (13-39) U/L ALT 3 L (7-52) U/L Alkaline Phosphatase 52 (34-104) U/L Troponin I High Sens 22.4 H 22.0 H (0-20) pg/ml Total Protein 7.8 (6.0-8.3) gm/dl Albumin 4.3 (3.4-5.0) gm/dl Globulin 3.5 (2.5-4.0) gm/dl Albumin/Globulin Ratio 1.2 (0.9-2) SARS-CoV-2 (PCR) POSITIVE A* (Negative) Influenza Type A (PCR) Negative (Neg) Influenza Type B (PCR) Negative (Neg) RSV (RT-PCR) Negative (Neg) Administered Medications Gabapentin (Gabapentin 600 Mg Tab) 600 mg PO TID [facility] Stop: 06/03/23 22:58 Last Admin: 05/04/23 23:39 Dose: 600 mg Documented By: KRT Guaifenesin (Guaifenesin 600 Mg Tabcr) 600 mg PO Q12 MARITZA Stop: 06/03/23 22:58 Last Admin: 05/04/23 23:39 Dose: 600 mg Documented By: KRT Insulin Aspart (Insulin Aspart Per Unit Charge) 0 units SC ACHS [facility] Stop: 06/03/23 22:58 Last Admin: 05/04/23 23:44 Dose: Not Given Documented By: TONJA Metoprolol Succinate (Metoprolol Succ 50mg Ext Rel Tab) 50 mg PO BID [facility] Stop: 06/03/23 22:58 Last Admin: 05/04/23 23:39 Dose: 50 mg Documented By: TONJA Discontinued Medications Dexamethasone (Dexamethasone Sod Inj 4 Mg/Ml Vial) 8 mg IV NOW STA Stop: 05/04/23 19:33 Last Admin: 05/04/23 20:06 Dose: 8 mg Documented By: WENDY Ceftriaxone Sodium (Rocephin) 2,000 mg in 50 mls @ 100 mls/hr IV NOW STA Stop: 05/04/23 20:01 Last Infusion: 05/04/23 20:36 Dose: Infused Documented By: Admin: 05/04/23 20:06 Dose: 100 mls/hr Documented By: WENDY Azithromycin 500 mg/ Dextrose 255 mls @ 127.5 mls/hr IV NOW STA Stop: 05/04/23 21:31 Last Admin: 05/04/23 20:56 Dose: 127.5 mls/hr Documented By: WENDY Remdesivir 200 mg/ Sodium (Chloride) 250 mls @ 125 mls/hr IV 2130 ONE; Protocol Stop: 05/04/23 23:29 Last Admin: 05/04/23 22:06 Dose: 125 mls/hr Documented By: MARCO A Ondansetron HCl (Ondansetron Inj 2 Mg/Ml 2 Ml Vial) Confirm Administered Dose 4 mg .ROUTE .K-MED ONE Stop: 05/04/23 20:04 Last Admin: 05/04/23 20:06 Dose: 4 mg Documented By: WENDY Imaging Data Radiologist's Impression: Chest X-Ray 05/04/23 15:55 XR chest 1V not portable HISTORY: 73 years-old Male sob acute shortness of breath COMPARISON: 04/18/2021 TECHNIQUE: PA view of the chest FINDINGS: Cardiac megaly with pulmonary vascular congestion, bilateral mixed interstitial and alveolar opacities. No pneumothorax. Small right pleural effusion. Healed chronic left-sided rib fractures. Degenerative changes of the shoulders and spine. Emphysema. IMPRESSION: 1. Mixed interstitial and alveolar opacities suggestive of multifocal pneumonia. 2. Pulmonary emphysema. 3. Small right pleural effusion. ACT 112: Negative or not required by law. The above report was generated using voice recognition software. It may contain grammatical, syntax or spelling errors. Electronically signed by: German Aguilar M.D. 05/04/2023 4:39 PM Discharge Plan Visit Data Chief Complaint: Illness Stated Complaint: SICK FOR A FEW DAYS ED Provider: Juan Smith Discharge Problem: Hypoxic respiratory failure, Atrial fibrillation with RVR, COVID-19, Anemia, Elevated troponin Patient Disposition: Admitted As Inpatient Discharge Instructions Interventions: ED Discharge Assessment Last Done: 05/04/23 22:12 Discharge Problem: Hypoxic respiratory failure Qualifiers: Chronicity: acute Qualified Code(s): J96.01 - Acute respiratory failure with hypoxia
--- NOTE | 2023-05-04 19:47 | History & Physical Report ---
Date of Service May 04, 2023 Assessment & Plan (1) COVID-19: Plan: Acute hypoxic respiratory failure in the setting of Covid-19 infection with ?COPD exacerbation. No home oxygen requirement. Multifocal pneumonia seen on CXR. Empirically given ceftriaxone and azithromycin in the ED. Patient with known history of COPD and high likelihood of clinical deterioration. Would continue CTX and azithromycin for now. Start Remdesivir and Dexamethasone. Blood cultures pending. Continue CTX and azithromycin for now Dexamethasone 6 g QD x 10 days Remdesivir 200 mg x 1 then 100mg QD 5-10 days IC, flutter valve, nebs, mucinex etc Supplemental oxygen as needed (2) Atrial fibrillation with RVR: Plan: Rapid ventricular response likely in the setting of acute illness. Rate acceptable at this point. Continue home Eliquis. Continue home rate control with metoprolol 50 mg BID. Will order repeat ECHO as last in 2020. K > 4, Mg > 2 ECHO pending (3) Anemia: Plan: Chronic condition with exacerbation. Hemoglobin 8.3. Patient on iron supplementation as well. Likely iron deficiency anemia vs blood loss anemia. Patient does have chronic rectal bleeding in the setting of ulcerative proctitis. Could consider IV iron. Consider GI consult for scope if bleeding continues/hemoglobin continue to drop. AM CBC FOBT pending (4) Diabetes mellitus type II, controlled: Plan: Hold home metformin while inpatient. Start SSI as patient on high dose steroids. 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 Consider GI consult for scope if bleeding continues/hemoglobin continue to drop. (7) Cardiomyopathy: Plan: Repeat ECHO pending. Last showed HFmrEF 40-45% (8) Hearing loss: Plan: Patient requires loud voice to interact with team. (9) Chronic obstructive pulmonary disease: Plan: Patient on inhaled albuterol/iprotropium at home in addition to albuterol as needed. Patient reports using both daily. With patient's smoking history and consistent PRN albuterol use would strongly consider maintenance medication at this point. (10) Hypoxia: Plan: See above (11) Atrial fibrillation: Plan: See above (12) Elevated troponin: Plan: Likely demand ischemic in the setting of acute illness. Since peaked. No further monitoring required. Plan Code status: full DVT ppx: Eliquis and ASA FENGI: Heart Healthy Dispo: PCU/Tele History of Present Illness Chief Complaint: illness Primary Care Provider: Lupe Weinstein MD 73 y/o male with a PMHx of COPD, TIIDM, a fib on Eliquis, HTN, known pulmonary nodules, HLD, neuropathic pain, prostate cancer with residual rectal bleeding, cardiomyopathy with moderately reduced EF (40-45%) presented with shortness of breath and generally feeling unwell. In the ED: Patient found to have multifocal pneumonia in the setting of Covid-19 infection. Given CTX, azithromycin, and dexamethasone x1. Hemoglobin 8.3. INR 1.2. Tbili 1.9. HsTrop 22.4. EKG showing a. fib with RVR. Upon my interview - history not entirely clear. Patient reportedly with acute illness a few weeks ago. Has worsened over the last few days - cough, shortness of breath, inspiratory chest pain, headache, sinus/nasal congestion, diarrhea, nausea/vomiting, and generally feeling unwell. No fevers or chills. No pain in the his legs. Patient does reportedly have bloody stools because of his history of ulcerative proctitis with rectal bleeding. Patient last seen by PCP 10/2022 without mention of rectal bleeding. Labs 06/2022 with hemoglobin of 10.4 - iron deficiency anemia. Patient reports smoking cessation since 2007. Previous 4 PPD smoker. Allergies Allergy/AdvReac Type Severity Reaction Status Date / Time ciprofloxacin [Cipro] Allergy Severe hives Verified 05/04/23 21:10 azithromycin AdvReac Intermediate dizzy, Verified 05/04/23 21:10 vomitting Home Medications Medication Instructions Recorded Confirmed Type blood-glucose meter #1 ea 12/06/18 05/04/23 Rx aspirin 81 mg tablet,delayed 81 mg PO QAM 10/16/19 05/04/23 History release (Adult Low Dose Aspirin) albuterol sulfate 90 mcg/actuation 2 puff inhalation Q6H PRN Wheezing 05/04/22 05/04/23 Rx aerosol inhaler (ProAir HFA) #8.5 grams ipratropium 20 mcg-albuterol 100 1 puff inhalation QID #4 grams 05/04/22 05/04/23 Rx mcg/actuation mist for inhalation (Combivent Respimat) apixaban 5 mg tablet (Eliquis) 5 mg PO Q12H #180 tabs 08/17/22 05/04/23 Rx balsalazide 750 mg capsule 2,250 mg (3 x 750 mg) PO TID 90 11/10/22 05/04/23 Rx (Colazal) days #810 caps atorvastatin 20 mg tablet 20 mg PO QAM #90 tabs 01/06/23 05/04/23 Rx gabapentin 600 mg tablet 600 mg PO TID #90 tabs 01/06/23 05/04/23 Rx (Neurontin) metoprolol succinate 50 mg 50 mg PO BID #180 tabs 01/06/23 05/04/23 Rx tablet,extended release 24 hr (Toprol XL) metformin 500 mg tablet 500 mg PO BID 05/04/23 05/04/23 History pantoprazole 40 mg tablet,delayed 40 mg PO BID 05/04/23 05/04/23 History release Past Med/Surg History Medical History AAA (abdominal aortic aneurysm) Atrial fibrillation Avascular necrosis Benign prostatic hyperplasia with lower urinary tract symptoms Chronic cerebral ischemia Chronic obstructive pulmonary disease CMV colitis Depression Diabetes mellitus, type 2 Diabetic neuropathy Disc degeneration, lumbar Diverticulosis of colon GERD (gastroesophageal reflux disease) GI bleed Hearing loss Hiatal hernia HTN (hypertension) Hyperlipidemia Kidney stones Neuropathy Poor historian Prostate cancer Pulmonary nodules Ulcerative colitis Surgical History H/O excision of mass (06/15/22) History of AAA (abdominal aortic aneurysm) repair History of cataract surgery History of colon resection History of colonoscopy History of lithotripsy History of prostate biopsy History of tooth extraction S/P prostatectomy Family History Brother Family history of diabetes mellitus FHx: prostate cancer Dementia Sister Family history of diabetes mellitus Breast cancer Family/Other Family history of diabetes mellitus Father Lung cancer Sister Myocardial infarction, Onset Age: 66 Other No family history of adverse response to anesthesia Denies family history of Ovarian cancer Prostate cancer Colorectal cancer Social History Smoking Status: Never smoker Second Hand Exposure: No; Do You Dip or Chew Tobacco: No; Tobacco Cessation Education Requested by Patient: No Hx Alcohol Use: No Hx Substance Use: No Preferred Language: Slovenian Communication Ability: Effective Communication Ability Comment: DEAF LEFT EAR/GTZ RIGHT EAR-DOESN'T USUALLY WEAR Visual Impairment: No Limitations Hearing Ability: Hard of Hearing Ground Mixer Required: No Beliefs That Will Affect Care: None marital status: Current Living Situation: Alone Current Living Situation Comment: Brother with be with patient at home post procedure current occupational status: retired Other Information That Helps Us Care for You: No Feels Safe at Home: Yes Safety Concerns: Feels Safe At This Time Childhood Exposure to Second-Hand Smoke: Yes Diet: regular caffeine: Yes during the past year weight has: remained stable Dental Care, Regularly: No Physical Activity Frequency: Daily Seatbelt Use: always Sunscreen Use: No Assistive Devices: Cane Review of Systems 2 Review of Systems: See HPI Physical Exam 2 Physical Exam: Gen: ill appearing male in NAD, breathing comfortably on 6L NC HEENT: AT NC MMM CV: irregularly irregular rhythm, tachycardic, no m/r/g noted, no BLE edema, radial pulses symmetric and irregular Resp: diffusely diminished breath sounds with definite rhonchi and probably wheezes, poor air movement Abd: soft, non-tender, non-distended, +BS MSK: no obvious deformities Neuro: alert and oriented, hard of hearing Psych: appropriate mood and affect, expresses understanding Results & Data Results & Data Vital Signs (Past 12 Hours) Vital Signs Temp Pulse Resp BP Pulse Ox O2 Del Method O2 Flow Rate 05/04/23 19:23 149 H 05/04/23 15:49 36.8 C 124 H 20 131/82 100 Nasal Cannula 6 Laboratory Results 05/04/23 17:20 05/04/23 17:20 Diagnostic Findings Chest X-Ray 05/04/23 15:55 FINDINGS: Cardiac megaly with pulmonary vascular congestion, bilateral mixed interstitial and alveolar opacities. No pneumothorax. Small right pleural effusion. Healed chronic left-sided rib fractures. Degenerative changes of the shoulders and spine. Emphysema. IMPRESSION: 1. Mixed interstitial and alveolar opacities suggestive of multifocal pneumonia. 2. Pulmonary emphysema. 3. Small right pleural effusion. Supervising Physician Co-Signing Physician Notes Attending addendum: I have physically seen this patient, have supervised the medical residents activities, and agree with the H&P unless as otherwise noted. Assessment and Plan: Acute respiratory failure with hypoxia/multifocal pneumonia/COVID-19 infection/COPD exacerbation- From the ED received the following: Dexamethasone 8 mg IV, ceftriaxone 2 g IV, azithromycin 500 mg IV and Zofran 4 mg IV Ceftriaxone 2 g IV daily Azithromycin 5 mg IV daily Dexamethasone 6 mg IV daily Remdesivir IV per protocol Nasal cannula oxygen, titrate to keep pulse ox around 92% COVID-19 precautions Atrial fibrillation with RVR/atrial fibrillation/hypertension- The patient will be admitted to telemetry for serial cardiac enzymes, serial EKG's, cardiac rhythm monitoring and a 2-D echocardiogram with Dopplers. Continue apixaban, aspirin and metoprolol tartrate Rate improved with time in ED Diabetes mellitus- Hold metformin Placed on Accu-Cheks with SSI Remaining orders and notations as noted Resident Activity Tracking Resident Involvement: Resident Care Provided Care Provided: Adult Hospital Medicine (11) Atrial fibrillation Atrial fibrillation type: unspecified Qualified Code(s): I48.91 - Unspecified atrial fibrillation
[2023-05-04] MEDS ORDERED: ONDANSETRON INJ 2 MG/ML 2 ML VIAL IV PRN ×2 (20:00→22:59)
[2023-05-04] MEDS ORDERED: ONDANSETRON INJ 2 MG/ML 2 ML VIAL ONE (20:03)
[2023-05-04] MEDS ORDERED: REMDESIVIR 200 MG in SODIUM CHLORIDE 0.9% 210 ML IV ONE (21:30)
[2023-05-04] MEDS ORDERED: GLUCAGON FOR INJ 1 MG VIAL SQ PRN (22:59)
[2023-05-04] MEDS ORDERED: GLUCOSE 10 TAB/TUBE PO PRN (22:59)
[2023-05-04] MEDS ORDERED: DEXTROSE 50% 50 ML SYRINGE IV PRN (22:59)
[2023-05-04] MEDS ORDERED: CARBOHYDRATES FOR HYPOGLYCEMIA PO PRN (22:59)
[2023-05-04] MEDS ORDERED: POLYETHYLENE (MIRALAX) 17 GM PACK PO PRN (22:59)
[2023-05-04] MEDS ORDERED: ACETAMINOPHEN 325 MG TAB PO PRN (22:59)
[2023-05-04] MEDS ORDERED: PHARMACY GLYCEMIC MGMT CONSULT PRN (22:59)
[2023-05-04] MEDS ORDERED: GLUCOSE 40% GEL 15 GM TUBE PO PRN (22:59)
[2023-05-04] MEDS ORDERED: ALBUTEROL HFA 8 GM INHALER INH PRN (22:59)
[2023-05-04] MEDS: guaiFENesin 600 MG TABCR PO SCH (23:39)
[2023-05-04] MEDS: GABAPENTIN 600 MG TAB PO SCH (23:39)
[2023-05-04] MEDS: METOPROLOL SUCC 50MG EXT REL TAB PO SCH (23:39)
[2023-05-04] MEDS: INSULIN ASPART PER UNIT CHARGE SC SCH (23:44)
[2023-05-05] MEDS: ALBUT/IPRATROP 3MG/0.5MG NEB 3 ML VIAL NEB SCH ×4 (00:57→11:02)
[2023-05-05] MEDS: PANTOprazole 40 MG TAB PO SCH ×3 (01:00→20:36)
[2023-05-05] MEDS: APIXABAN 5 MG TABLET PO SCH ×3 (01:00→20:34)
[2023-05-05] MEDS ORDERED: Albuterol HFA 8 GM Inhaler (Combivent Respimat P&T Subs) INH SCH (07:00)
[2023-05-05] MEDS ORDERED: Ipratropium HFA Inhaler (Combivent Respimat P&T Subs) INH SCH (07:00)
[2023-05-05 07:35] LABS: Hematocrit (blood only) 27.7 % (42.0-52.0); Hemoglobin 7.4 g/dl (14.0-18.0); Mean Corpuscular Hemoglobin 17.7 pg (25.0-34.0); Mean Corpuscular Hgb Conc 26.7 g/dL (32.0-36.0); Mean Corpuscular Volume 66.4 fL (80.0-100.0); Mean Platelet Volume 10.6 fL (9.4-12.4); Platelet Count 268 K/uL (130-400); RDW Coefficient of Variation 19.7 % (11.5-14.5); RDW Standard Deviation 45.6 fL (36.4-46.3); Red Blood Count 4.17 M/uL (4.70-6.10); White Blood Count 6.48 K/ul (4.8-10.8)
[2023-05-05 07:37] LABS: Albumin Globulin Ratio 1.2 (0.9-2); Albumin Level 3.6 gm/dl (3.4-5.0); BUN Creatinine Ratio 19.8 (10-20); Calcium 8.2 mg/dl (8.6-10.3); Creatinine Clr Calc Pharmacy 75.1 ml/min; Est GFR (African American) 101.5 ml/min; Est GFR (Non-African American) 87.6 ml/min; Globulin 3.1 gm/dl (2.5-4.0); Potassium 4.2 mmol/L (3.5-5.1); Total Protein 6.7 gm/dl (6.0-8.3)
--- NOTE | 2023-05-05 08:01 | Hospitalist Progress Note ---
Date of Service May 05, 2023 Assessment & Plan (1) COVID-19: Plan: Acute hypoxic respiratory failure in the setting of Covid-19 infection with ?COPD exacerbation. Not typically on home oxygen. Multifocal pneumonia seen on CXR. Empirically given ceftriaxone and azithromycin in the ED. Patient with known history of COPD and high likelihood of clinical deterioration. Would continue Ceftriaxone and azithromycin, may consider better pseudomonas coverage with copd hx if worsens Start Remdesivir and Dexamethasone. Blood cultures pending. Copd IC, flutter valve,albuterol and atrovent mucinex etc Supplemental oxygen as needed (2) Atrial fibrillation with RVR: Plan: Rapid ventricular response likely in the setting of acute illness. Rate acceptable at this point. Continue home Eliquis. Continue home rate control with metoprolol 50 mg BID. Last Echo had HFrEF repeat ECHO shows preserved ejection fraction no regional wall motion abnormalities improved ejection fraction from July 31, 2020 (3) Anemia: Plan: Chronic condition with exacerbation. Hemoglobin 8.3. Iron deficiency is seen on labs. Ordered IV Venna fair 05/05/2023 Likely iron deficiency anemia plus acute blood loss anemia both from inflammatory bowel disease. Patient does have chronic rectal bleeding in the setting of ulcerative proctitis. (4) Diabetes mellitus type II, controlled: Plan: Hold home metformin while inpatient. Start SSI as patient on high dose steroids. 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 Consider GI consult for scope if bleeding continues/hemoglobin continue to drop. (7) Hearing loss: Plan: Patient requires loud voice to interact with team. (8) Elevated troponin: Plan: Likely demand ischemia in the setting of acute illness and rapid heart rate. Since Covid infection consider covid myocarditis Plan Code status: full DVT ppx: Eliquis and ASA Admission and Anticipated Discharge Date Admission Date: May 04, 2023 Subjective Patient is extremely hard of hearing denies any other complaints Physical Exam Physical Exam: Supplemental oxygen has been required at low levels Blood pressure has been lower diuretics and lisinopril has been held Card exam is regular and distant lungs are clear with poor air movement at the bases Results & Data Results & Data Vital Signs (Past 12 Hours) Vital Signs Temp Pulse Pulse Resp BP BP Pulse Ox 05/05/23 07:36 100 H 18 95 05/05/23 03:17 101 H 18 95 05/05/23 03:01 98.6 F 118 H 18 151/82 H 95 05/05/23 01:34 132 H 05/05/23 00:04 05/05/23 00:04 98.2 F 140 H 20 148/75 H 99 05/04/23 22:59 98.2 F 140 H 20 148/75 H 99 05/04/23 22:59 05/04/23 22:12 110 H 18 99 05/04/23 20:58 100 05/04/23 20:30 107 H 20 100 05/04/23 20:30 142/95 H 05/04/23 20:12 98.1 F 95 H 18 153/93 H 100 05/04/23 20:09 153/93 H 05/04/23 20:09 122 H 24 94 05/04/23 20:05 99 05/04/23 20:04 99 05/04/23 20:02 05/04/23 20:00 110 H 20 Pulse Ox O2 Del Method O2 Del Method O2 Flow Rate O2 Flow Rate 05/05/23 07:36 Nasal Cannula 2 05/05/23 03:17 Nasal Cannula 2 05/05/23 03:01 Nasal Cannula 2 05/05/23 01:34 05/05/23 00:04 Nasal Cannula 2 05/05/23 00:04 Nasal Cannula 2 05/04/23 22:59 Nasal Cannula 2 05/04/23 22:59 99 Nasal Cannula 2 05/04/23 22:12 Nasal Cannula 3 05/04/23 20:58 Nasal Cannula 3 05/04/23 20:30 Room Air 05/04/23 20:30 05/04/23 20:12 Nasal Cannula 5 05/04/23 20:09 05/04/23 20:09 05/04/23 20:05 Nasal Cannula 6 05/04/23 20:04 Nasal Cannula 6 05/04/23 20:02 Nasal Cannula 6 05/04/23 20:00 Laboratory Results Reviewed CBC Reviewed chemistry PG Care Time/CCT Total # of Minutes Spent Total Time Spent with Patient: Total time spent is greater than 50% in coordination of care (as documented) at patient's floor/unit and/or counseling patient: Coding Level of Care Code 22536 SUB INP/OBS CARE 3/50MIN Diagnoses COVID-19 U07.1 Atrial fibrillation with RVR I48.91 Anemia D64.9 Diabetes mellitus type II, controlled E11.9 HTN (hypertension) I10 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
[2023-05-05 08:08] LABS: Basophils # (auto) 0.01 K/uL (0.00-0.20); Basophils % (auto) 0.2 %; Hypochromasia Present; Immature Granulocytes # (auto) 0.03 K/uL (0.01-0.20); Immature Granulocytes % (auto) 0.5 %; Lymphocytes # (auto) 0.46 K/uL (1.20-3.40); Lymphocytes % (auto) 7.1 %; Monocytes # (auto) 0.17 K/uL (0.11-0.59); Monocytes % (auto) 2.6 %; Neutrophils # (auto) 5.81 K/uL (1.40-6.50); Neutrophils % (auto) 89.6 %; Ovalocytes 2+; Poikilocytosis Present; Polychromasia 1+
[2023-05-05] MEDS: INSULIN ASPART PER UNIT CHARGE SC SCH ×4 (08:47→22:00)
[2023-05-05] MEDS ORDERED: IPRATROPIUM BROMIDE/ALBUTEROL respimat INH INH SCH (09:00)
[2023-05-05] MEDS: ASPIRIN 81 MG ECTAB PO SCH (09:04)
[2023-05-05] MEDS: dexAMETHasone 6 MG in SYRINGE 0 ML IV SCH (09:04)
[2023-05-05] MEDS: GABAPENTIN 600 MG TAB PO SCH ×3 (09:04→20:35)
[2023-05-05] MEDS: guaiFENesin 600 MG TABCR PO SCH ×2 (09:04→20:35)
[2023-05-05] MEDS: METOPROLOL SUCC 50MG EXT REL TAB PO SCH ×2 (09:04→22:19)
[2023-05-05] MEDS: ATORVASTATIN 20 MG TAB PO SCH (09:04)
[2023-05-05] MEDS ORDERED: NovoLIN-N (NPH) PER UNIT CHARGE SQ STA (09:19)
--- NOTE | 2023-05-05 12:28 | XCELERA ---
[id number] \\[id number]
[2023-05-05 13:11] LABS: Toxic Vacuolation 1+
[2023-05-05 13:20] LABS: Iron 26 mcg/dl (35-175); Unsaturated Iron Binding Cap 414 mcg/dl (155-355)
--- NOTE | 2023-05-05 13:51 | Electrocardiogram Report ---
Test Reason : Blood Pressure : / mmHG Vent. Rate : 116 BPM Atrial Rate : 000 BPM P-R Int : 000 ms QRS Dur : 092 ms QT Int : 344 ms P-R-T Axes : 000 048 051 degrees QTc Int : 478 ms Atrial fibrillation with rapid ventricular response Indeterminate axis Abnormal ECG When compared with ECG of 03-JUN-2022 07:52, No significant change was found Confirmed by Ruddy Prabhakar ([id number]) on 05/05/2023 1:51:22 PM Referred By: REFERRED SELF Confirmed By:Ruddy Prabhakar
[2023-05-05] MEDS ORDERED: ALBUT/IPRATROP 3MG/0.5MG NEB 3 ML VIAL NEB PRN (14:11)
[2023-05-05] MEDS: ALBUTEROL HFA 8 GM INHALER INH SCH ×2 (14:24→18:04)
[2023-05-05] MEDS: IPRATROPIUM BROMIDE HFA INHALER INH SCH ×2 (14:25→18:04)
--- NOTE | 2023-05-05 14:46 | Pharmacy Report ---
Pharmacy Glycemic Short Note 2 - Date of Service May 05, 2023 - Glycemic Short BSG Results (Last 24 hours): 05/04/23 05/04/23 05/05/23 17:20 23:43 06:38 Glucose 99 133 H POC Glucose 139 H 05/05/23 05/05/23 07:46 11:40 Glucose POC Glucose 128 H 176 H OUTPATIENT ANTIDIABETIC REGIMEN: * metformin 500mg BID * HbA1c 5.6 (11/21), pending 05/06/22 ASSESSMENT: * Khadar is a 73 YOM admitted with hypoxia/Covid-19 and a history of T2DM. Pharmacy has been consulted for glycemic management while inpatient. * Fasting BSG this AM within goal range, will conservatively given 0.2units/kg of insulin NPH to cover dexamethasone 6mg IV daily. * Novolog initiated at a weight based stress of 2, lunchtime BSG increased, will tighten carbohydrate coverage slightly. PLAN FOR INPATIENT GLYCEMIC CONTROL: * Hold outpatient oral diabetes medications * Basal insulin * Insulin NPH 15 units x1 with dexamethasone, reassess in AM * Bolus insulin * NovoLog per scale ACHS or Q6hrs while NPO * Goal Range: Low 110 mg/dL - High 140 mg/dL * Correction Factor: 35 mg/dL/unit * Nutritional / Prandial insulin per carb ratio of 1 unit per 10 grams CHO consumed
[2023-05-05] MEDS ORDERED: IRON SUCROSE 200 MG in 0.9 % SODIUM CHLORIDE 100 ML IV ONE (17:45)
[2023-05-05] MEDS: REMDESIVIR 100 MG in SODIUM CHLORIDE 0.9% 230 ML IV SCH (20:32)
[2023-05-05] MEDS: cefTRIAXone SODIUM 2,000 MG in DEXTROSE 5 % MINI-B 50 ML IV SCH (20:32)
[2023-05-05] MEDS: AZITHROMYCIN 250 MG in DEXTROSE 5% 250 ML IV SCH (21:20)
--- NOTE | 2023-05-06 01:36 | Billing Data ---
Date of Service May 06, 2023 Coding Level of Care Code 79633 INT INP/OBS CARE
[2023-05-06 07:36] LABS: Estimated Average Glucose 134 mg/dl; Hemoglobin A1C 6.3 % (4.5-5.6)
[2023-05-06 07:39] LABS: Albumin Globulin Ratio 1.1 (0.9-2); Albumin Level 3.4 gm/dl (3.4-5.0); BUN Creatinine Ratio 27.7 (10-20); Bilirubin,Total 0.8 mg/dl (0.2-1.0); Calcium 8.3 mg/dl (8.6-10.3); Creatinine Clr Calc Pharmacy 63.1 ml/min; Est GFR (African American) 92.2 ml/min; Est GFR (Non-African American) 79.6 ml/min; Globulin 3.1 gm/dl (2.5-4.0); Magnesium 1.9 mg/dl (1.7-2.4); Potassium 4.2 mmol/L (3.5-5.1); Total Protein 6.5 gm/dl (6.0-8.3)
[2023-05-06 07:55] LABS: Hematocrit (blood only) 29.3 % (42.0-52.0); Hemoglobin 7.7 g/dl (14.0-18.0); Mean Corpuscular Hemoglobin 17.9 pg (25.0-34.0); Mean Corpuscular Hgb Conc 26.3 g/dL (32.0-36.0); Mean Platelet Volume 10.3 fL (9.4-12.4); Nucleated RBC # (auto) 0.02 K/uL (0.00-0.12); Nucleated RBC % (auto) 0.2 %; Platelet Count 248 K/uL (130-400); RDW Coefficient of Variation 19.5 % (11.5-14.5); RDW Standard Deviation 46.9 fL (36.4-46.3); Red Blood Count 4.31 M/uL (4.70-6.10); White Blood Count 10.15 K/ul (4.8-10.8)
[2023-05-06 07:56] LABS: Acanthocytes 1+; Basophils # (auto) 0.01 K/uL (0.00-0.20); Basophils % (auto) 0.1 %; Immature Granulocytes # (auto) 0.06 K/uL (0.01-0.20); Immature Granulocytes % (auto) 0.6 %; Lymphocytes # (auto) 0.66 K/uL (1.20-3.40); Lymphocytes % (auto) 6.5 %; Monocytes # (auto) 0.81 K/uL (0.11-0.59); Neutrophils # (auto) 8.61 K/uL (1.40-6.50); Neutrophils % (auto) 84.8 %; Ovalocytes 1+; Polychromasia 1+; Schistocytes 1+; Tear Drop Cells 1+
[2023-05-06 08:01] LABS: Folate (Folic Acid),Ser orPlas 6.36 ng/ml (>5.38)
[2023-05-06] MEDS: IPRATROPIUM BROMIDE HFA INHALER INH SCH ×4 (08:30→19:54)
[2023-05-06] MEDS: ALBUTEROL HFA 8 GM INHALER INH SCH ×4 (08:30→19:54)
[2023-05-06] MEDS: METOPROLOL SUCC 50MG EXT REL TAB PO SCH ×2 (09:22→20:53)
[2023-05-06] MEDS: PANTOprazole 40 MG TAB PO SCH ×2 (09:22→20:52)
[2023-05-06] MEDS: GABAPENTIN 600 MG TAB PO SCH ×3 (09:23→20:54)
[2023-05-06] MEDS: guaiFENesin 600 MG TABCR PO SCH ×2 (09:23→20:53)
[2023-05-06] MEDS: ATORVASTATIN 20 MG TAB PO SCH (09:23)
[2023-05-06] MEDS: dexAMETHasone 6 MG in SYRINGE 0 ML IV SCH (09:23)
[2023-05-06] MEDS: APIXABAN 5 MG TABLET PO SCH ×2 (09:24→20:52)
[2023-05-06] MEDS: ASPIRIN 81 MG ECTAB PO SCH (09:24)
[2023-05-06] MEDS: INSULIN ASPART PER UNIT CHARGE SC SCH ×4 (09:30→20:54)
--- NOTE | 2023-05-06 15:01 | Pharmacy Report ---
Pharmacy Glycemic Short Note 2 - Date of Service May 06, 2023 - Glycemic Short BSG Results (Last 24 hours): 05/05/23 05/05/23 05/06/23 16:12 20:41 06:37 Glucose 106 H POC Glucose 136 H 156 H 05/06/23 05/06/23 07:45 11:29 Glucose POC Glucose 102 H 77 OUTPATIENT ANTIDIABETIC REGIMEN: * metformin 500mg BID * HbA1c 5.6 (11/21), pending 05/06/22 ASSESSMENT: 05/06 * Khadar received 28 units of insulin yesterday (15 were basal) * Fasting BSG below goal range this AM, NPH held this morning. * Lunchtime BSG below goal range, carbohydrate ratio loosened, goal range increased slightly * Lantus scale added at bedtime based on BSGs to cover basal needs. 05/05 * Khadar is a 73 YOM admitted with hypoxia/Covid-19 and a history of T2DM. Pharmacy has been consulted for glycemic management while inpatient. * Fasting BSG this AM within goal range, will conservatively given 0.2units/kg of insulin NPH to cover dexamethasone 6mg IV daily. * Novolog initiated at a weight based stress of 2, lunchtime BSG increased, will tighten carbohydrate coverage slightly. PLAN FOR INPATIENT GLYCEMIC CONTROL: * Hold outpatient oral diabetes medications * Basal insulin * Lantus 0-10 units SQ HS based on BSG (see eMAR for additional details) * Bolus insulin * NovoLog per scale ACHS or Q6hrs while NPO * Goal Range: Low 110 mg/dL - High 140 mg/dL * Correction Factor: 35 mg/dL/unit * Nutritional / Prandial insulin per carb ratio of 1 unit per 11 grams CHO consumed
--- NOTE | 2023-05-06 18:09 | Hospitalist Progress Note ---
Date of Service May 06, 2023 Assessment & Plan (1) COVID-19: Plan: Acute hypoxic respiratory failure in the setting of Covid-19 infection with ?COPD exacerbation. No home oxygen requirement. Multifocal pneumonia seen on CXR. Empirically given ceftriaxone and azithromycin in the ED. Patient with known history of COPD and high likelihood of clinical deterioration. Would continue CTX and azithromycin for now. Start Remdesivir and Dexamethasone. Blood cultures pending. Continue CTX and azithromycin for now Dexamethasone 6 g QD x 10 days Remdesivir 200 mg x 1 then 100mg QD 5 doses IC, flutter valve, nebs, mucinex etc Patient only requiring supplemental oxygen (2) Atrial fibrillation with RVR: Plan: Rapid ventricular response likely in the setting of acute illness. Rate acceptable at this point. Continue home Eliquis. Continue home rate control with metoprolol 50 mg BID. Will order repeat ECHO as last in 2020. K > 4, Mg > 2 ECHO shows no significant abnormalities on echocardiography ejection fraction is preserved/improved from last echocardiography Patient occasionally with tachycardia with exertion we will continue his metoprolol at this time (3) Anemia: Plan: Chronic condition with exacerbation. Hemoglobin 8.3. Patient on iron supplementation as well. Likely iron deficiency anemia vs blood loss anemia. Patient does have chronic rectal bleeding in the setting of ulcerative proctitis. 2 doses of IV iron. Hemoglobin low but stable no transfusion required at this time likely from his chronic issues (4) Diabetes mellitus type II, controlled: Plan: Hold home metformin while inpatient. Start SSI as patient on high dose steroids. (5) Chronic obstructive pulmonary disease: Plan: Patient on inhaled albuterol/iprotropium at home in addition to albuterol as needed. Patient reports using both daily. With patient's smoking history and consistent PRN albuterol use would strongly consider maintenance medication at this point. (6) Atrial fibrillation: Plan: See above (7) Elevated troponin: Plan: Likely demand ischemic in the setting of acute illness. Since peaked. No further monitoring required. Plan Code status: full DVT ppx: Rajat and ASA JESUSI: Heart Healthy Admission and Anticipated Discharge Date Admission Date: May 04, 2023 Subjective Patient is extremely hard of hearing denies any other complaints Physical Exam Physical Exam: Supplemental oxygen has been required at low levels Blood pressure has been lower diuretics and lisinopril has been held Card exam is regular and distant lungs are clear with poor air movement at the bases Results & Data Results & Data Vital Signs (Past 12 Hours) Vital Signs Temp Pulse Pulse Pulse Resp BP Pulse Ox 05/06/23 15:55 97.5 F L 76 16 104/66 91 05/06/23 14:33 94 H 18 95 05/06/23 11:27 97.5 F L 94 H 18 106/64 94 05/06/23 09:50 105 H 16 94 05/06/23 09:30 83 05/06/23 09:15 97.5 F L 108 H 16 110/72 108 H 05/06/23 08:32 98 H 13 99 05/06/23 08:03 97.5 F L 88 18 130/89 100 O2 Del Method O2 Flow Rate 05/06/23 15:55 Room Air 05/06/23 14:33 Room Air 05/06/23 11:27 Room Air 05/06/23 09:50 Room Air 05/06/23 09:30 05/06/23 09:15 Nasal Cannula 2 05/06/23 08:32 Nasal Cannula 3 05/06/23 08:03 Room Air Laboratory Results Reviewed CBC Reviewed chemistry Updated brother Kendall PG Care Time/CCT Total # of Minutes Spent Total Time Spent with Patient: Total time spent is greater than 50% in coordination of care (as documented) at patient's floor/unit and/or counseling patient: Coding Level of Care Code 31587 SUB INP/OBS CARE 3/50MIN Diagnoses COVID-19 U07.1 Atrial fibrillation with RVR I48.91 Anemia D64.9 Diabetes mellitus type II, controlled E11.9 Chronic obstructive pulmonary disease J44.9 Atrial fibrillation I48.91 Atrial fibrillation type: unspecified Elevated troponin R79.89 (6) Atrial fibrillation Atrial fibrillation type: unspecified Qualified Code(s): I48.91 - Unspecified atrial fibrillation
[2023-05-06] MEDS ORDERED: IRON SUCROSE 200 MG in 0.9 % SODIUM CHLORIDE 100 ML IV ONE (18:30)
[2023-05-06] MEDS: REMDESIVIR 100 MG in SODIUM CHLORIDE 0.9% 230 ML IV SCH (20:01)
[2023-05-06] MEDS: cefTRIAXone SODIUM 2,000 MG in DEXTROSE 5 % MINI-B 50 ML IV SCH (20:49)
[2023-05-06] MEDS ORDERED: LANTUS PER UNIT CHARGE SC SCH (21:00)
[2023-05-06] MEDS: AZITHROMYCIN 250 MG in DEXTROSE 5% 250 ML IV SCH (21:28)
[2023-05-07] MEDS: ALBUTEROL HFA 8 GM INHALER INH SCH (07:51)
[2023-05-07] MEDS: IPRATROPIUM BROMIDE HFA INHALER INH SCH (07:52)
[2023-05-07 08:28] LABS: Albumin Globulin Ratio 1.1 (0.9-2); Albumin Level 3.3 gm/dl (3.4-5.0); BUN Creatinine Ratio 31.2 (10-20); Bilirubin,Total 0.8 mg/dl (0.2-1.0); Calcium 8.3 mg/dl (8.6-10.3); Creatinine Clr Calc Pharmacy 63.4 ml/min; Est GFR (African American) 93.4 ml/min; Est GFR (Non-African American) 80.6 ml/min; Globulin 3.1 gm/dl (2.5-4.0); Magnesium 1.9 mg/dl (1.7-2.4); Potassium 4.1 mmol/L (3.5-5.1); Total Protein 6.4 gm/dl (6.0-8.3)
[2023-05-07 08:57] LABS: Acanthocytes 1+; Anisocytosis Present; Basophils # (auto) 0.01 K/uL (0.00-0.20); Basophils % (auto) 0.1 %; Hematocrit (blood only) 29.3 % (42.0-52.0); Hemoglobin 7.7 g/dl (14.0-18.0); Immature Granulocytes # (auto) 0.05 K/uL (0.01-0.20); Immature Granulocytes % (auto) 0.5 %; Lymphocytes # (auto) 0.84 K/uL (1.20-3.40); Lymphocytes % (auto) 9.1 %; Mean Corpuscular Hemoglobin 17.9 pg (25.0-34.0); Mean Corpuscular Hgb Conc 26.3 g/dL (32.0-36.0); Mean Platelet Volume 10.4 fL (9.4-12.4); Microcytosis Present; Monocytes # (auto) 0.64 K/uL (0.11-0.59); Monocytes % (auto) 6.9 %; Neutrophils # (auto) 7.68 K/uL (1.40-6.50); Neutrophils % (auto) 83.4 %; Nucleated RBC # (auto) 0.05 K/uL (0.00-0.12); Nucleated RBC % (auto) 0.5 %; Ovalocytes 1+; Platelet Count 300 K/uL (130-400); Polychromasia 1+; RDW Coefficient of Variation 19.8 % (11.5-14.5); RDW Standard Deviation 46.6 fL (36.4-46.3); Red Blood Count 4.31 M/uL (4.70-6.10); Schistocytes 1+; White Blood Count 9.22 K/ul (4.8-10.8)
[2023-05-07] MEDS: INSULIN ASPART PER UNIT CHARGE SC SCH (08:58)
[2023-05-07] MEDS: APIXABAN 5 MG TABLET PO SCH (09:07)
[2023-05-07] MEDS: ASPIRIN 81 MG ECTAB PO SCH (09:07)
[2023-05-07] MEDS: ATORVASTATIN 20 MG TAB PO SCH (09:07)
[2023-05-07] MEDS: PANTOprazole 40 MG TAB PO SCH (09:08)
[2023-05-07] MEDS: GABAPENTIN 600 MG TAB PO SCH (09:08)
[2023-05-07] MEDS: guaiFENesin 600 MG TABCR PO SCH (09:08)
[2023-05-07] MEDS: METOPROLOL SUCC 50MG EXT REL TAB PO SCH (09:08)
[2023-05-07] MEDS: dexAMETHasone 6 MG in SYRINGE 0 ML IV SCH (09:10)
--- NOTE | 2023-05-07 15:23 | Discharge Summary ---
Date of Service May 07, 2023 Admission HPI Per Admitting Provider 73 y/o male with a PMHx of COPD, TIIDM, a fib on Eliquis, HTN, known pulmonary nodules, HLD, neuropathic pain, prostate cancer with residual rectal bleeding, cardiomyopathy with moderately reduced EF (40-45%) presented with shortness of breath and generally feeling unwell. In the ED: Patient found to have multifocal pneumonia in the setting of Covid-19 infection. Given CTX, azithromycin, and dexamethasone x1. Hemoglobin 8.3. INR 1.2. Tbili 1.9. HsTrop 22.4. EKG showing a. fib with RVR. Upon my interview - history not entirely clear. Patient reportedly with acute illness a few weeks ago. Has worsened over the last few days - cough, shortness of breath, inspiratory chest pain, headache, sinus/nasal congestion, diarrhea, nausea/vomiting, and generally feeling unwell. No fevers or chills. No pain in the his legs. Patient does reportedly have bloody stools because of his history of ulcerative proctitis with rectal bleeding. Patient last seen by PCP 10/2022 without mention of rectal bleeding. Labs 06/2022 with hemoglobin of 10.4 - iron deficiency anemia. Patient reports smoking cessation since 2007. Previous 4 PPD smoker. Principal Diagnosis Acute on chronic respiratory failure with hypoxia COVID-19 positive test (U07.1, COVID-19) with Acute Pneumonia (J12.89, Other viral pneumonia) (If respiratory failure or sepsis present, add as separate assessment) Hard of hearing Discharge Exam Patient's lungs have good air movement but continue to have minor crackles. No overt wheezes or focal air loss Discharge Data Allergies Allergy/AdvReac Type Severity Reaction Status Date / Time ciprofloxacin [Cipro] Allergy Severe hives Verified 05/04/23 21:10 azithromycin AdvReac Intermediate dizzy, Verified 05/04/23 21:10 vomitting Consultations 05/04/23 19:32 ED Decision to Admit Stat Hospital Course (1) COVID-19: Acute hypoxic respiratory failure in the setting of Covid-19 infection with ?COPD exacerbation. No home oxygen requirement. Multifocal pneumonia seen on CXR. Empirically given ceftriaxone and azithromycin in the ED. Patient with known history of COPD and high likelihood of clinical deterioration. Would continue CTX and azithromycin for now. Start Remdesivir and Dexamethasone. Blood cultures pending. Continue CTX and azithromycin for now Dexamethasone 6 g QD x 10 days Remdesivir given while the patient was hospitalized Patient was able to be weaned to room air he was given a prescription for a nebulizer machine and DuoNebs for home use. Discussed inhaler for home use patient is reluctant given his fixed income he will be agreeable to try the nebulizer machine and talk to his primary care physician if he should be on more preventative medications for COPD (2) Atrial fibrillation with RVR: Rapid ventricular response likely in the setting of acute illness. Rate acceptable at this point. Continue home Eliquis. Continue home rate control with metoprolol 50 mg BID. Will order repeat ECHO as last in 2020. K > 4, Mg > 2 ECHO shows no significant abnormalities on echocardiography ejection fraction is preserved/improved from last echocardiography Patient occasionally with tachycardia with exertion we will continue his metoprolol at this time (3) Anemia: Chronic condition with exacerbation. Hemoglobin 8.3. Patient on iron supplementation as well. Likely iron deficiency anemia vs blood loss anemia. Patient does have chronic rectal bleeding in the setting of ulcerative proctitis. 2 doses of IV iron. Hemoglobin low but stable no transfusion required at this time likely from his chronic issues (4) Diabetes mellitus type II, controlled: Reason home metformin steroids will be discontinued shortly (5) Chronic obstructive pulmonary disease: Patient on inhaled albuterol/iprotropium at home in addition to albuterol as needed. Patient reports using both daily. Patient given neuro DuoNeb inhalers for home (6) Atrial fibrillation: See above (7) Elevated troponin: Likely demand ischemic in the setting of acute illness. Since peaked. No further monitoring required. Plan Code status: full Total Time Total Time Spent Total Time Spent (In Minutes): It required greater than 30 minutes to prepare this patient for discharge. Discharge Plan Discharge Items Patient Disposition: Home - Self-Care Reason For Visit: HYPOXIA Discharge Diagnosis: covid pneumonia copd Activity: Resume your previous activity Activity Comment: you will need to take it easy Non-emergency contact: Primary Care Provider Call non-emergency contact if: your symptoms worsen Follow-up/Referrals: Lupe Weinstein MD [Primary Care Provider] - Diet: Regular Addtl Attending Provider Instructions: You have been diagnosed with covid infection, it would be recommended that you quarantine yourself for 10 days from your first test or first symptoms, and if at the 10th day you have no symptoms the you can come off quarantine but use common sense precautions. Quarantine means attempting to stay away from people who have not had an active covid infection in the past, and if you have to be around others to wear a mask even if you are indoors, do not share a room to sleep in with others until you are out of quarantine. If you still have symptoms at the 10th day, continue to quarantine until you are symptom free for 48 hours Pending Studies at Discharge: No Stand-Alone Forms: My [facility] [employer], Smoking Cessation Medications and DC Order Prescriptions: New ipratropium-albuterol 0.5 mg-3 mg(2.5 mg base)/3 mL Solution For Nebulization 3 ml NEB Q4R PRN (Reason: shortness of breath) Qty: 1 3RF azithromycin 250 mg tablet 250 mg PO DAILY 4 Days Qty: 4 0RF Rx Instructions: start on day 2 of therapy dexamethasone 6 mg tablet 6 mg PO DAILY Qty: 7 0RF (DME) nebulizer and compressor Device See Rx Instructions .Route Qty: 1 0RF Rx Instructions: As directed four times a day Continued (DME) blood-glucose meter misc See Dose Instructions .ROUTE .MEDSUPPLY Qty: 1 0RF Dose Instruction: As directed Rx Instructions: As directed Eliquis 5 mg tablet 5 mg PO Q12H Qty: 180 3RF gabapentin [Neurontin] 600 mg tablet 600 mg PO TID Qty: 90 5RF atorvastatin 20 mg tablet 20 mg PO QAM Qty: 90 3RF Rx Instructions: TAKE 1 TABLET BY MOUTH IN THE MORNING metoprolol succinate [Toprol XL] 50 mg tablet extended release 24 hr 50 mg PO BID Qty: 180 3RF balsalazide [Colazal] 750 mg capsule 2,250 mg PO TID 90 Days Qty: 810 3RF Rx Instructions: TAKE 3 CAPSULES BY MOUTH THREE TIMES DAILY albuterol sulfate [ProAir HFA] 90 mcg/actuation HFA aerosol inhaler 2 puff INHALATION Q6H PRN (Reason: Wheezing) Qty: 8.5 2RF Combivent Respimat 20-100 mcg/actuation mist 1 puff INHALATION QID Qty: 4 5RF aspirin [Adult Low Dose Aspirin] 81 mg tablet,delayed release (DR/EC) 81 mg PO QAM metformin 500 mg tablet 500 mg PO BID Rx Instructions: TAKE 1 TABLET BY MOUTH TWICE DAILY FOR METABOLIC DISORDER pantoprazole 40 mg tablet,delayed release (/EC) 40 mg PO BID Discharge Orders: Discharge Order (Routine); Ordered 05/07/23 Ordered By: Philip Zapata/Other Patient Handouts: Managing Type 2 Diabetes, Special Foot Care for Diabetes Admission Data Admit Date/Time: 05/04/23 20:19 Attending Provider: Philip Lizama Admit Provider: Paris Blackman Primary Care Provider: Lupe Weinstein Other Providers: Jesse Arango Other Interventions: Discharge Summary Assessment (RN) Last Done: 05/07/23 09:28 Coding Level of Care Code 77758 INP/OBS DISCH >30 MIN Diagnoses COVID-19 U07.1 Atrial fibrillation with RVR I48.91 Anemia D64.9 Diabetes mellitus type II, controlled E11.9 Chronic obstructive pulmonary disease J44.9 Atrial fibrillation I48.91 Atrial fibrillation type: unspecified Elevated troponin R79.89
== END 2023-05-07 10:18 | disposition home or self-care (01) | DRG 177 ==
LOC: ED 15:34 → 2S 20:19 → SUATTDRO 20:19 → 2S 22:12

== ENCOUNTER 2024-04-14 12:02 | Inpatient (IN) ==
--- NOTE | 2024-04-14 12:21 | Emergency Department Note ---
Impression & Plan Atrial fibrillation with rapid ventricular response, CHF (congestive heart failure), Symptomatic anemia ED Provider Note NAME: OTTO BARRAGAN AGE: 74 SEX: M : 1950 ARRIVES VIA: Ambulance INFORMANT: Patient ED PROVIDER(S): Juan Smith DO CHIEF COMPLAINT: Shortness of breath HPI: Patient is a 74-year-old male with a past medical history of PVD, diabetes, COPD and A-fib as well as hypertension who presents to the ER for shortness of breath. Symptoms have been present for the past week. He notes he has a cough and congestion with it. He cannot exert himself has become significant short of breath. He does have swelling in the bilateral lower extremities. No dysuria, urgency, or frequency. Denies any black or dark tarry stools. No bright red blood per rectum. ADDITIONAL HISTORY OBTAINED: Per HPI Chronic Medical/Social Conditions Affecting Care: Per HPI PAST MEDICAL HISTORY:See Below PAST SURGICAL HISTORY:See Below FAMILY HISTORY:See Below SOCIAL HISTORY:See Below HOME MEDICATIONS:See Below ALLERGIES:See Below VITALS:See Below PHYSICAL EXAMINATION: GENERAL: Sitting up in bed, alert, well appearing, well nourished, no distress, non-toxic EYE EXAM: normal conjunctiva. PERRL and EOM's grossly intact. OROPHARYNX: no exudate, no erythema, lips, buccal mucosa, and tongue normal and mucous membranes are moist NECK: supple, no nuchal rigidity, no adenopathy, non-tender LUNGS: Clear to auscultation. Normal chest wall mechanics HEART: Tachycardic and irregular regular, S1 normal and S2 normal ABDOMEN: abdomen soft, non-tender, normo-active bowel sounds, no masses, no rebound or guarding. RECTAL: Heme-negative stools UPPER EXTREMITIES: upper extremities are grossly normal. LOWER EXTREMITIES: No pitting edema. NEURO EXAM: Normal sensorium, cranial nerves II-XII grossly intact, normal speech, no gross weakness of arms, no gross weakness of legs. MEDICAL DECISION MAKING: Patient is a 74-year-old male who presents to the ER who is found to be tachycardic with a heart rate in the 160s. IVs were established and blood work was obtained. Labs show no significant leukocytosis. Mild anemia at 6.3. BMP with LFTs was unremarkable. T. bili slightly up at 2.8. Troponin was negative. Viral panel was negative. Patient was typed and crossed given 2 units of PRBCs while in the ER. I did verbally consent him at bedside and discussed the risk and benefits including but not limited to infection, transfusion reactions, hepatitis B, hepatitis C and HIV. Patient agreed to transfusion at that time. Chest x-ray was clean. Patient was given 2 dose of IV metoprolol. Heart rate trended down to the low 100s. Chest x-ray I do favor is most consistent with failure. Do not favor this is infectious at this time. Rectal was heme- negative performed with female RN at bedside. Patient was updated and discussed with the hospitalist for further evaluation management treatment. Consults/Care Managements Discussions: Per MDM Triage Nursing notes reviewed. Limited review of prior medical records performed Vital Signs: reviewed and remarkable for tachycardic Differential diagnosis: Differential diagnoses includes but is not limited to pneumonia, bronchitis, COPD/Asthma exacerbation, pneumothorax, pulmonary embolism, congestive heart failure, acute coronary syndrome ER treatment provided: See below Diagnostics interpreted by me include EKG and cardiac monitoring as listed below: -Cardiac Monitoring: An order was placed for continuous cardiac monitoring. The monitor shows a rate of 165 with AFIB rhythm. -ECG: A-fib rate of 153 Right axis No PVCs QTc 412 -Laboratory studies:Interpreted by me as stated above in MDM and shown below. Imaging studies: Xrays: As interpreted by me: Portable AP upright 1 view of the chest shows infiltrate suggesting pulmonary edema CTs show: none Procedures:none Critical Care: I have personally spent 75 minutes of critical care time in the direct management of this patient. This includes bedside care, interpretation of diagnostic studies, and testing, discussion with consultants, patient, and family members, and other required patient management activities. This 75 minutes is in excess of all separately billable procedures. 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 Deaf Left ear non compliant with [facility] Hiatal hernia Pulmonary nodules Avascular necrosis Atrial fibrillation following with Dr. Arroyo HTN (hypertension) S/P prostatectomy 03/08/19 Dr. Robin Amaro- Robotic Assisted Laparoscopic Radical Retropubic Prostatectomy, Pelvic Lymph Node Dissection, Suprapubic Tube Placement 03/08/1919 Grade 1 view, MAC 3, ETT 7.5. Medical History (Updated 04/14/24 @ 18:16 by Juan Smith DO) Cardiomyopathy Poor historian PT non compliant and unware of PMH/medications Prostate cancer CMV colitis Neuropathy GI bleed hx Kidney stones Ulcerative colitis Diabetes mellitus, type 2 niddm Hyperlipidemia Surgical History H/O excision of mass (06/15/22) Excision of Right Upper Extremity Skin Lesion(Right) - Yaya Tena DO History of colon resection due to cancer, approx 3 yrs ago per pt History of cataract surgery bilat History of prostate biopsy History of lithotripsy History of AAA (abdominal aortic aneurysm) repair History of tooth extraction all teeth removed History of colonoscopy Family History Brother Family history of diabetes mellitus FHx: prostate cancer Dementia Sister Family history of diabetes mellitus Breast cancer Family/Other Family history of diabetes mellitus Father Lung cancer Sister Myocardial infarction, Onset Age: 66 Other No family history of adverse response to anesthesia Denies family history of Ovarian cancer Prostate cancer Colorectal cancer Social History Smoking Status: Former smoker Tobacco Type: Cigarettes Second Hand Exposure: No; Do You Dip or Chew Tobacco: No; Hx Alcohol Use: No Hx Substance Use: No Preferred Language: Syriac Communication Ability: Effective Communication Ability Comment: DEAF LEFT EAR/GTZ RIGHT EAR-DOESN'T USUALLY WEAR Visual Impairment: No Limitations Hearing Ability: Hard of Hearing Pca Assisted Living Required: No Beliefs That Will Affect Care: None marital status: Current Living Situation: Alone Current Living Situation Comment: lives alone current occupational status: retired Feels Safe at Home: Yes Childhood Exposure to Second-Hand Smoke: Yes Diet: regular caffeine: Yes during the past year weight has: remained stable Dental Care, Regularly: No Physical Activity Frequency: Daily Seatbelt Use: always Sunscreen Use: No Assistive Devices: Denture - Upper, Glasses, Hearing Aid - Right, Hospital Bed, Oxygen - Continuous and Walker Allergies Allergies Allergy/AdvReac Type Severity Reaction Status Date / Time ciprofloxacin [Cipro] Allergy Severe hives Verified 01/30/24 07:13 azithromycin AdvReac Intermediate dizzy, Verified 01/30/24 07:13 vomitting Home Meds Previous Rx's Medication Instructions Recorded blood-glucose meter #1 ea 12/06/18 atorvastatin 20 mg tablet 20 mg PO QAM #90 tabs 01/06/23 nebulizer and compressor #1 ea 05/10/23 fluticasone 250 mcg-salmeterol 50 1 inh inhalation Q12H #60 ea 05/17/23 mcg/dose blistr powdr for inhalation (Advair Diskus) metformin 500 mg tablet 500 mg PO BID #180 tabs 08/02/23 apixaban 5 mg tablet (Eliquis) 5 mg PO Q12H #180 tabs 09/01/23 gabapentin 600 mg tablet 600 mg PO TID #90 tabs 10/07/23 (Neurontin) Results & Data (ED) Vital Signs Vital Signs - 24 hr 04/14/24 12:08 04/14/24 12:09 04/14/24 12:11 Temperature Temperature Source Pulse Rate 160 H 156 H Pulse Rate [Apical] Pulse Rate from SpO2 Sensor Respiratory Rate Respiratory Effort / Characteristics Respiratory Depth Respiratory Pattern Blood Pressure 127/93 Blood Pressure [Right Arm] Blood Pressure Mean 97 Blood Pressure Mean [Right Arm] Pulse Oximetry Oxygen Delivery Method Oxygen Flow Rate Sepsis Recent Fever Within 48 Hours Sepsis New/Unexplained Change in Mental Status Sepsis Action Taken by Nursing 04/14/24 12:15 04/14/24 12:15 04/14/24 12:15 Temperature 37.2 C Temperature Source Oral Pulse Rate 152 H Pulse Rate [Apical] Pulse Rate from SpO2 Sensor Respiratory Rate 28 H 28 H Respiratory Effort / Characteristics Respiratory Depth Respiratory Pattern Tachypnea Blood Pressure 112/90 Blood Pressure [Right Arm] Blood Pressure Mean 97 Blood Pressure Mean [Right Arm] Pulse Oximetry 95 Oxygen Delivery Method Room Air Room Air Oxygen Flow Rate Sepsis Recent Fever Within 48 Hours No Sepsis New/Unexplained Change in Mental Status No Sepsis Action Taken by Nursing Physician Notified 04/14/24 12:15 04/14/24 12:23 04/14/24 12:24 Temperature Temperature Source Pulse Rate 135 H Pulse Rate [Apical] Pulse Rate from SpO2 Sensor Respiratory Rate Respiratory Effort / Characteristics Respiratory Depth Respiratory Pattern Blood Pressure 127/93 142/100 H Blood Pressure [Right Arm] Blood Pressure Mean 101 Blood Pressure Mean [Right Arm] Pulse Oximetry Oxygen Delivery Method Room Air Oxygen Flow Rate Sepsis Recent Fever Within 48 Hours Sepsis New/Unexplained Change in Mental Status Sepsis Action Taken by Nursing 04/14/24 12:24 04/14/24 12:30 04/14/24 12:30 Temperature Temperature Source Pulse Rate 120 H Pulse Rate [Apical] Pulse Rate from SpO2 Sensor 121 H Respiratory Rate Respiratory Effort / Characteristics Respiratory Depth Respiratory Pattern Blood Pressure 142/100 H 112/90 Blood Pressure [Right Arm] Blood Pressure Mean 101 93 Blood Pressure Mean [Right Arm] Pulse Oximetry Oxygen Delivery Method Oxygen Flow Rate Sepsis Recent Fever Within 48 Hours Sepsis New/Unexplained Change in Mental Status Sepsis Action Taken by Nursing 04/14/24 12:30 04/14/24 12:30 04/14/24 12:48 Temperature Temperature Source Pulse Rate 123 H Pulse Rate [Apical] Pulse Rate from SpO2 Sensor 124 H Respiratory Rate Respiratory Effort / Characteristics Respiratory Depth Respiratory Pattern Blood Pressure 112/90 112/90 Blood Pressure [Right Arm] Blood Pressure Mean 93 93 Blood Pressure Mean [Right Arm] Pulse Oximetry 91 Oxygen Delivery Method Oxygen Flow Rate Sepsis Recent Fever Within 48 Hours Sepsis New/Unexplained Change in Mental Status Sepsis Action Taken by Nursing 04/14/24 12:49 04/14/24 12:50 04/14/24 13:00 Temperature Temperature Source Pulse Rate 120 H 125 H Pulse Rate [Apical] Pulse Rate from SpO2 Sensor Respiratory Rate Respiratory Effort / Characteristics Respiratory Depth Respiratory Pattern Blood Pressure 112/90 112/90 99/72 L Blood Pressure [Right Arm] Blood Pressure Mean 90 Blood Pressure Mean [Right Arm] Pulse Oximetry Oxygen Delivery Method Oxygen Flow Rate Sepsis Recent Fever Within 48 Hours Sepsis New/Unexplained Change in Mental Status Sepsis Action Taken by Nursing 04/14/24 13:06 04/14/24 13:08 04/14/24 13:10 Temperature Temperature Source Pulse Rate 107 H 108 H Pulse Rate [Apical] 107 H Pulse Rate from SpO2 Sensor 101 H Respiratory Rate 22 Respiratory Effort / Characteristics Respiratory Depth Normal Respiratory Pattern Blood Pressure 107/76 Blood Pressure [Right Arm] 99/72 L Blood Pressure Mean Blood Pressure Mean [Right Arm] 81 Pulse Oximetry 97 97 Oxygen Delivery Method Room Air Oxygen Flow Rate Sepsis Recent Fever Within 48 Hours Sepsis New/Unexplained Change in Mental Status Sepsis Action Taken by Nursing 04/14/24 13:21 04/14/24 13:27 04/14/24 13:30 Temperature Temperature Source Pulse Rate 117 H 116 H Pulse Rate [Apical] Pulse Rate from SpO2 Sensor Respiratory Rate Respiratory Effort / Characteristics Respiratory Depth Respiratory Pattern Blood Pressure 107/76 Blood Pressure [Right Arm] Blood Pressure Mean 84 Blood Pressure Mean [Right Arm] Pulse Oximetry Oxygen Delivery Method Oxygen Flow Rate Sepsis Recent Fever Within 48 Hours Sepsis New/Unexplained Change in Mental Status Sepsis Action Taken by Nursing 04/14/24 13:30 04/14/24 13:35 04/14/24 13:36 Temperature Temperature Source Pulse Rate 110 H Pulse Rate [Apical] 112 H Pulse Rate from SpO2 Sensor 110 H Respiratory Rate 26 H Respiratory Effort / Characteristics Spontaneous Labored Respiratory Depth Normal Respiratory Pattern Regular Blood Pressure 107/76 Blood Pressure [Right Arm] 107/76 Blood Pressure Mean 84 Blood Pressure Mean [Right Arm] 86 Pulse Oximetry 99 99 Oxygen Delivery Method Nasal Cannula Oxygen Flow Rate 2 Sepsis Recent Fever Within 48 Hours Sepsis New/Unexplained Change in Mental Status Sepsis Action Taken by Nursing 04/14/24 13:48 Temperature Temperature Source Pulse Rate 110 H Pulse Rate [Apical] Pulse Rate from SpO2 Sensor 122 H Respiratory Rate Respiratory Effort / Characteristics Respiratory Depth Respiratory Pattern Blood Pressure Blood Pressure [Right Arm] Blood Pressure Mean Blood Pressure Mean [Right Arm] Pulse Oximetry 94 Oxygen Delivery Method Oxygen Flow Rate Sepsis Recent Fever Within 48 Hours Sepsis New/Unexplained Change in Mental Status Sepsis Action Taken by Nursing Laboratory Data 04/14/24 12:14 04/14/24 12:14 Lab Results 04/14/24 04/14/24 Range/Units 12:14 13:12 WBC 7.21 (4.8-10.8) K/ul RBC 4.08 L (4.70-6.10) M/uL Hgb 6.3 L* (14.0-18.0) g/dl Hct 25.4 L (42.0-52.0) % MCV 62.3 L (80.0-100.0) fL MCH 15.4 L (25.0-34.0) pg MCHC 24.8 L (32.0-36.0) g/dL RDW Std Deviation 45.8 (36.4-46.3) fL RDW Coeff of Kayy 21.8 H (11.5-14.5) % Plt Count 266 (130-400) K/uL Immature Gran % (Auto) 0.4 % Neut % (Auto) 74.2 % Lymph % (Auto) 12.2 % [place] % (Auto) 12.1 % Eos % (Auto) 0.7 % Baso % (Auto) 0.4 % Neut # (Auto) 5.35 (1.40-6.50) K/uL Lymph # (Auto) 0.88 L (1.20-3.40) K/uL [place] # (Auto) 0.87 H (0.11-0.59) K/uL Eos # (Auto) 0.05 (0.00-0.50) K/uL Baso # (Auto) 0.03 (0.00-0.20) K/uL Immature Gran # (Auto) 0.03 (0.01-0.20) K/uL Absolute Nucleated RBC 0.03 (0.00-0.12) K/uL Nucleated RBC % (auto) 0.4 % Polychromasia 1+ Hypochromasia Present Poikilocytosis Present Anisocytosis Present Microcytosis Present Tear Drop Cells 1+ Ovalocytes 1+ Sodium 135 L (136-145) mmol/L Potassium 4.3 (3.5-5.1) mmol/L Chloride 102 (98-107) mmol/L Carbon Dioxide 25 (21-32) mmol/L Anion Gap 8 (3-11) BUN 19 (6-23) mg/dl Creatinine 0.97 (0.6-1.4) mg/dl Est Cr Clr Drug Dosing 65.8 ml/min eGFR 81.41 BUN/Creatinine Ratio 19.6 (10-20) Glucose 119 H (70-99(Fasting)) mg/dl Calcium 8.5 L (8.6-10.3) mg/dl Total Bilirubin 2.8 H (0.2-1.0) mg/dl AST 28 (13-39) U/L ALT 35 (7-52) U/L Alkaline Phosphatase 120 H (34-104) U/L Troponin I High Sens 16.5 (0-20) pg/ml B-Natriuretic Peptide 849 H (0-100) pg/ml Total Protein 7.1 (6.0-8.3) gm/dl Albumin 3.6 (3.4-5.0) gm/dl Globulin 3.5 (2.5-4.0) gm/dl Albumin/Globulin Ratio 1.0 (0.9-2) Lipase 15 (11-82) U/L Blood Type A Positive Antibody Screen NEGATIVE Crossmatch See Detail Administered Medications Insulin Aspart (Insulin Aspart Per Unit Charge) 0 units SC ACHS MARITZA Stop: 05/14/24 16:46 Last Admin: 04/14/24 17:57 Dose: Not Given Documented By: AEM Discontinued Medications Furosemide (Furosemide Inj 20 Mg/2 Ml Vial) 20 mg IV ONE ONE Stop: 04/14/24 14:55 Last Admin: 04/14/24 14:59 Dose: 20 mg Documented By: FARIDA Metoprolol Tartrate (Metoprolol Tartrate 1 Mg/Ml Vial) 5 mg IV NOW STA Stop: 04/14/24 12:18 Last Admin: 04/14/24 12:23 Dose: 5 mg Documented By: MMDarshana Metoprolol Tartrate (Metoprolol Tartrate 1 Mg/Ml Vial) 5 mg IV NOW STA Stop: 04/14/24 12:45 Last Admin: 04/14/24 12:50 Dose: 5 mg Documented By: MMDarshana Imaging Data Radiologist's Impression: Chest X-Ray 04/14/24 12:16 XR chest 1V portable CLINICAL HISTORY: Chest pain, nonspecific COMPARISON STUDY: Chest CT May 2020. Chest radiograph November 02, 2023. FINDINGS: There is no pneumothorax. A moderate right pleural effusion is noted with right basilar opacity. Cardiomegaly is unchanged. Interstitial thickening is present. There is underlying emphysema. Multiple left-sided rib fractures are incidentally noted. IMPRESSION: 1. Cardiomegaly with interstitial thickening suggestive of mild pulmonary edema. 2. Moderate right pleural effusion with right basilar opacity which could reflect pneumonia or atelectasis. Radiographic follow up to ensure resolution is recommended. 3. Emphysema. ACT 112: Negative or not required by law. Electronically signed by: Julio C Escobar M.D. 04/14/2024 1:43 PM Discharge Plan Visit Data Chief Complaint: Shortness of Breath/Dyspnea ED Provider: Juan Smith Discharge Problem: Atrial fibrillation with rapid ventricular response, CHF (congestive heart failure), Symptomatic anemia Patient Disposition: Admitted As Inpatient Discharge Instructions Interventions: ED Discharge Assessment Last Done: 04/14/24 16:25 Discharge Problem: CHF (congestive heart failure) Qualifiers: Heart failure type: unspecified Heart failure chronicity: unspecified Qualified Code(s): I50.9 - Heart failure, unspecified
[2024-04-14] MEDS: METOPROLOL TARTRATE 1 MG/ML VIAL IV STA ×2 (12:23→12:50)
[2024-04-14 12:46] LABS: Albumin Level 3.6 gm/dl (3.4-5.0); BUN Creatinine Ratio 19.6 (10-20); Bilirubin,Total 2.8 mg/dl (0.2-1.0); Calcium 8.5 mg/dl (8.6-10.3); Creatinine Clr Calc Pharmacy 65.8 ml/min; Globulin 3.5 gm/dl (2.5-4.0); Potassium 4.3 mmol/L (3.5-5.1); Total Protein 7.1 gm/dl (6.0-8.3)
[2024-04-14 12:53] LABS: Troponin I High Sensitivity 16.5 pg/ml (0-20)
[2024-04-14 13:03] LABS: Hematocrit (blood only) 25.4 % (42.0-52.0); Hemoglobin 6.3 g/dl (14.0-18.0); Mean Corpuscular Hemoglobin 15.4 pg (25.0-34.0); Mean Corpuscular Hgb Conc 24.8 g/dL (32.0-36.0); Mean Corpuscular Volume 62.3 fL (80.0-100.0); Nucleated RBC # (auto) 0.03 K/uL (0.00-0.12); Nucleated RBC % (auto) 0.4 %; Platelet Count 266 K/uL (130-400); RDW Coefficient of Variation 21.8 % (11.5-14.5); RDW Standard Deviation 45.8 fL (36.4-46.3); Red Blood Count 4.08 M/uL (4.70-6.10); White Blood Count 7.21 K/ul (4.8-10.8)
[2024-04-14] MEDS ORDERED: SODIUM CHLORIDE 0.9% 50 ML IV PRN (13:03)
[2024-04-14] MEDS ORDERED: SODIUM CHLORIDE 0.9% 100 ML IV PRN (13:03)
[2024-04-14 13:07] LABS: Anisocytosis Present; Basophils # (auto) 0.03 K/uL (0.00-0.20); Basophils % (auto) 0.4 %; Eosinophils # (auto) 0.05 K/uL (0.00-0.50); Eosinophils % (auto) 0.7 %; Hypochromasia Present; Immature Granulocytes # (auto) 0.03 K/uL (0.01-0.20); Immature Granulocytes % (auto) 0.4 %; Lymphocytes # (auto) 0.88 K/uL (1.20-3.40); Lymphocytes % (auto) 12.2 %; Microcytosis Present; Monocytes # (auto) 0.87 K/uL (0.11-0.59); Monocytes % (auto) 12.1 %; Neutrophils # (auto) 5.35 K/uL (1.40-6.50); Neutrophils % (auto) 74.2 %; Ovalocytes 1+; Poikilocytosis Present; Polychromasia 1+; Tear Drop Cells 1+
[2024-04-14 13:36] LABS: Adenovirus PCR Not Detected (NotDetected); Bordetella parapertussis PCR Not Detected (NotDetected); Bordetella pertussis PCR Not Detected (NotDetected); Chlamydia pneumoniae PCR Not Detected (NotDetected); Coronavirus 229E PCR Not Detected (NotDetected); Coronavirus CoV-2 (COVID19)PCR Not Detected (NotDetected); Coronavirus HKU1 PCR Not Detected (NotDetected); Coronavirus NL63 PCR Not Detected (NotDetected); Coronavirus OC43PCR Not Detected (NotDetected); Human Metapneumovirus PCR Not Detected (NotDetected); Influenza A PCR Not Detected (NotDetected); Influenza B PCR Not Detected (NotDetected); Mycoplasma pneumoniae PCR Not Detected (NotDetected); Parainfluenza Virus 1 PCR Not Detected (NotDetected); Parainfluenza Virus 2 PCR Not Detected (NotDetected); Parainfluenza Virus 3 PCR Not Detected (NotDetected); Parainfluenza Virus 4 PCR Not Detected (NotDetected); Respiratory Syncytial VirusPCR Not Detected (NotDetected); Rhinovirus/Enterovirus PCR Not Detected (NotDetected)
--- NOTE | 2024-04-14 13:45 | XRay Report ---
XR chest 1V portable CLINICAL HISTORY: Chest pain, nonspecific COMPARISON STUDY: Chest CT May 2020. Chest radiograph November 02, 2023. FINDINGS: There is no pneumothorax. A moderate right pleural effusion is noted with right basilar opa city. Cardiomegaly is unchanged. Interstitial thickening is present. There is underlying emphysema. M ultiple left-sided rib fractures are incidentally noted. IMPRESSION: 1. Cardiomegaly with interstitial thickening suggestive of mild pulmonary edema. 2. Moderate right pleural effusion with right basilar opacity which could reflect pneumonia or atelec tasis. Radiographic follow up to ensure resolution is recommended. 3. Emphysema. ACT 112: Negative or not required by law. Electronically signed by: Julio C Escobar M.D. 04/14/2024 1:43 PM
--- NOTE | 2024-04-14 14:00 | History & Physical Report ---
Date of Service April 14, 2024 Assessment & Plan (1) Anemia: Plan: This is a 74-year-old gentleman with past medical history of ulcerative proctitis, COPD, atrial fibrillation, hyperlipidemia who presented to the emergency department on 04/14/2024 with a chief complaint of shortness of breath. No overt signs of bleeding, baseline hgb ~11 On Eliquis outpatient, last dose 04/14 AM. Hold pending stabilization of hgb. FOBT ordered pt w/ hx of ulcerative proctitis on balsalazide outpatient, last CN date uncertain CBC: hgb 6.3, microcytic 2 unit PRBC's ordered. Repeat CBC after 1 unit BMP: renal/electrolytes stable iron panel, b12, folic acid, retic count pending. (2) Acute CHF (congestive heart failure): Plan: Patient w/ diminished lung sounds, SOB, dyspnea on exertion, and bilateral lower extremity seeping edema. Reportedly ran out of Lasix prescription a few days ago. Baseline room air, currently on 2L via nasal cannula. CXR: cardiomegaly w/ interstitial thickening suggestive of mild pulmonary edema. moderate right pleural effusion with right basilar opacity which could reflect pneumonia vs atelectasis. Emphysema BNP 04/14: 849 respiratory Biofire negative. Repeat Echo ordered last echo 05/2023 - EF 60-65%, mild mitral regurgitation Daily weights monitor I&O's Lasix 20mg IV given, reassess for further diuresis in the AM. (3) Atrial fibrillation: Plan: Patient arrived in A fib RVR, reported history of A fib, follows with cardiology outpatient. S/p 5mg IV Lopressor x 2 in ED. remains tachycardic in 100s-110s Monitor on telemetry (4) Chronic obstructive pulmonary disease: Plan: Patient w/ history of emphysema, reportedly quit smoking in 2007. Continue home inhalers. Nebs prn CXR as above. (5) Hyperbilirubinemia: Plan: Total bilirubin elevated at 2.8, baseline ~ 0.8 etiology: secondary to edema vs GI in origin. AP 120, AST/ALT WNL. No abdominal imaging since 10/2020. consider repeat imaging if bili continues to uptrend. AM CMP (6) Diabetes mellitus, type 2: Plan: On Metformin 500mg BID outpatient. Last a1c 05/2023: 6.3% BG 119 at time of admission. Novolog sliding scale inpatient, adjust as needed range 100-150 CF 25 AM hemoglobin A1c Plan Chronic conditions: Ulcerative proctitis: balsalazide HLD: statin Diet: heart healthy Disposition: telemetry DVT prophylaxis: on hold due to acute anemia, may resume Eliquis when able Code status: full History of Present Illness Primary Care Provider: Lupe Weinstein MD This is a 74-year-old gentleman with past medical history of ulcerative proctitis, COPD, atrial fibrillation, hyperlipidemia who presented to the emergency department on 04/14/2024 with a chief complaint of shortness of breath. The patient was seen and examined. He was resting comfortably in bed. Patient reports that for the last few days he has noticed shortness of breath. He states that he also has been experiencing bilateral lower extremity edema. He reports that he had run out of his Lasix pills and did not have a refill of his prescription a few days ago as well. This is when his shortness of breath has seemed to worsen. He uses wraps on his legs as he tells me that sometimes fluid will seep out of them. These were removed during his evaluation however he tells me that he has not changed these dressings in approximately a week. He denies any chest pain or palpitations. He denies any urinary symptoms. He denies any abdominal pain, nausea, vomiting. He denies any melena or hematochezia. He is on balsalazide for ulcerative proctitis. States that he is compliant with all of his medications/inhalers and he did take all of his medications this morning. He denied any fevers or chills. Patient tells me that he lives alone as well. Workup in the ED was positive for anemia with a hemoglobin of 6.3. His BMP did reveal stable renal and electrolytes. His total bili was elevated at 2.8. Upon review of this, he had a previous elevation in May 2023 1.9 but this is typically within normal limits. His BNP was elevated at 849 and his respiratory BioFire was negative. Chest x-ray was positive for a moderate right sided pleural effusion, mild pulmonary edema, emphysema. Allergies Allergy/AdvReac Type Severity Reaction Status Date / Time ciprofloxacin [Cipro] Allergy Severe hives Verified 01/30/24 07:13 azithromycin AdvReac Intermediate dizzy, Verified 01/30/24 07:13 vomitting Home Medications Medication Instructions Recorded Confirmed Type blood-glucose meter #1 ea 12/06/18 01/30/24 Rx atorvastatin 20 mg tablet 20 mg PO QAM #90 tabs 01/06/23 04/14/24 Rx nebulizer and compressor #1 ea 05/10/23 01/30/24 Rx fluticasone 250 mcg-salmeterol 50 1 inh inhalation Q12H #60 ea 05/17/23 04/14/24 Rx mcg/dose blistr powdr for inhalation (Advair Diskus) metformin 500 mg tablet 500 mg PO BID #180 tabs 08/02/23 04/14/24 Rx apixaban 5 mg tablet (Eliquis) 5 mg PO Q12H #180 tabs 09/01/23 04/14/24 Rx gabapentin 600 mg tablet 600 mg PO TID #90 tabs 10/07/23 04/14/24 Rx (Neurontin) Past Med/Surg History Problem List Hyperbilirubinemia Acute CHF (congestive heart failure) Anemia (Acute) Abdominal aortic aneurysm s/p repair follows with [facility] [place] Vasc Surg Dysphagia, oropharyngeal phase Peripheral vascular disease 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 Deaf Left ear non compliant with GTZ Hiatal hernia Pulmonary nodules Avascular necrosis Atrial fibrillation following with Dr. Arroyo HTN (hypertension) S/P prostatectomy 03/08/19 Dr. Robin Amaro- Robotic Assisted Laparoscopic Radical Retropubic Prostatectomy, Pelvic Lymph Node Dissection, Suprapubic Tube Placement 03/08/1919 Grade 1 view, MAC 3, ETT 7.5. Medical History (Updated 04/14/24 @ 14:41 by Jayde Peterson PA-C) Cardiomyopathy Poor historian PT non compliant and unware of PMH/medications Prostate cancer CMV colitis Neuropathy GI bleed hx Kidney stones Ulcerative colitis Diabetes mellitus, type 2 niddm Hyperlipidemia Surgical History H/O excision of mass (06/15/22) Excision of Right Upper Extremity Skin Lesion(Right) - Yaya Tena DO History of colon resection due to cancer, approx 3 yrs ago per pt History of cataract surgery bilat History of prostate biopsy History of lithotripsy History of AAA (abdominal aortic aneurysm) repair History of tooth extraction all teeth removed History of colonoscopy Family History Brother Family history of diabetes mellitus FHx: prostate cancer Dementia Sister Family history of diabetes mellitus Breast cancer Family/Other Family history of diabetes mellitus Father Lung cancer Sister Myocardial infarction, Onset Age: 66 Other No family history of adverse response to anesthesia Denies family history of Ovarian cancer Prostate cancer Colorectal cancer Social History Smoking Status: Current every day smoker Tobacco Type: Cigarettes Second Hand Exposure: No; Do You Dip or Chew Tobacco: No; Hx Alcohol Use: No Hx Substance Use: No Preferred Language: Romansh Communication Ability: Effective Communication Ability Comment: DEAF LEFT EAR/GTZ RIGHT EAR-DOESN'T USUALLY WEAR Visual Impairment: No Limitations Hearing Ability: Hard of Hearing Measuring Machine Tender Required: No Beliefs That Will Affect Care: None marital status: Current Living Situation: Alone Current Living Situation Comment: Brother with be with patient at home post procedure current occupational status: retired Feels Safe at Home: Yes Childhood Exposure to Second-Hand Smoke: Yes Diet: regular caffeine: Yes during the past year weight has: remained stable Dental Care, Regularly: No Physical Activity Frequency: Daily Seatbelt Use: always Sunscreen Use: No Assistive Devices: Cane Physical Exam 2 Constitutional: WD/WN, vitals as above Eyes: PERRL, conjunctivae normal, anicteric sclerae Respiratory: breath sounds diminished R > L effort normal Cardiovascular: irregulary, irregular rhythm, tachycardic rate +2 pitting edema Gastrointestinal (Abdomen): normal bowel sounds, soft, nontender, no hepatosplenomegaly Skin: jaundiced Psychiatric: A+Ox3, euthymic affect Results & Data Results & Data Vital Signs (Past 12 Hours) Vital Signs Temp Pulse Pulse Resp BP BP Pulse Ox 04/14/24 13:35 112 H 26 H 107/76 99 04/14/24 13:10 108 H 107/76 04/14/24 13:08 107 H 22 99/72 L 97 04/14/24 12:50 125 H 112/90 04/14/24 12:49 120 H 112/90 04/14/24 12:23 135 H 127/93 04/14/24 12:15 04/14/24 12:15 28 H 04/14/24 12:15 04/14/24 12:15 37.2 C 152 H 28 H 112/90 95 04/14/24 12:11 156 H O2 Del Method O2 Flow Rate 04/14/24 13:35 Nasal Cannula 2 04/14/24 13:10 04/14/24 13:08 Room Air 04/14/24 12:50 04/14/24 12:49 04/14/24 12:23 04/14/24 12:15 Room Air 04/14/24 12:15 04/14/24 12:15 Room Air 04/14/24 12:15 Room Air 04/14/24 12:11 Laboratory Results 04/14/24 12:14 04/14/24 12:14 Diagnostic Findings Chest X-Ray 04/14/24 12:16 XR chest 1V portable CLINICAL HISTORY: Chest pain, nonspecific COMPARISON STUDY: Chest CT May 2020. Chest radiograph November 02, 2023. FINDINGS: There is no pneumothorax. A moderate right pleural effusion is noted with right basilar opacity. Cardiomegaly is unchanged. Interstitial thickening is present. There is underlying emphysema. Multiple left-sided rib fractures are incidentally noted. IMPRESSION: 1. Cardiomegaly with interstitial thickening suggestive of mild pulmonary edema. 2. Moderate right pleural effusion with right basilar opacity which could reflect pneumonia or atelectasis. Radiographic follow up to ensure resolution is recommended. 3. Emphysema. ACT 112: Negative or not required by law. Electronically signed by: Julio C Escobar M.D. 04/14/2024 1:43 PM Supervising Physician Co-Signing Physician Notes I personally examined the patient and verified all cheung points of history and exam, discussed case, and agree with decision making with Amor Pteerson PAC Came in feeling short of breath. ran out of lasix and then sob worse. also anemic. vitals noted nad heent nc at mmm breathing unlabored no accessory muscles good effort skin without rashes pallor or icterus shortness of breath/hypoxiaappears to be predominantly due to acute on chronic systolic CHFwhich appears to be due to running out of Lasix. Diurese, follow closely. Doubt his right-sided pleural effusion will require thoracentesis, but if he has ongoing dyspnea or hypoxia that cannot be corrected with diuresis alone, may need to consider this. dose lasix day-to-day based on symptoms (ie lasix ordered for today, but to avoid overdiuresis, especially in light of anemia - did not order ongoing yet, would prefer to see AM assessment and then order further if indicated) anemialongstanding history of inflammatory bowel disease and his ferritin back in June was 15strongly suspect hypoproliferative from iron deficiency which in turn is due to his inflammatory bowel diseaseobviously need to follow closely. Transfuse. While I suspect most of his shortness of breath is due to CHF, some could be due to symptomatic anemia as well. His bilirubin is a little bit elevated, but nothing else about his story appears consistent with hemolysisobviously continue to follow. Hold off on pharmacologic DVT prophylaxis for now because of this. PG Care Time/CCT Total # of Minutes Spent Total Time Spent with Patient: Total time spent is greater than 50% in coordination of care (as documented) at patient's floor/unit and/or counseling patient: Coding Level of Care Code 88446 INT INP/OBS CARE MIN Diagnoses Anemia, unspecified type D64.9 Anemia type: unspecified type Acute CHF (congestive heart failure) I50.9 Atrial fibrillation I48.91 Atrial fibrillation type: unspecified Chronic obstructive pulmonary disease J44.9 COPD type: emphysema Hyperbilirubinemia E80.6 Diabetes mellitus, type 2 E11.9 (1) Anemia Anemia type: unspecified type Qualified Code(s): D64.9 - Anemia, unspecified (3) Atrial fibrillation Atrial fibrillation type: unspecified Qualified Code(s): I48.91 - Unspecified atrial fibrillation (4) Chronic obstructive pulmonary disease COPD type: emphysema
[2024-04-14 14:44] LABS: Reticulocyte % 1.75 % (0.50-2.00); Reticulocytes # 0.07 10^6/uL (0.020-0.100)
[2024-04-14 14:53] LABS: Magnesium 1.9 mg/dl (1.7-2.4)
[2024-04-14] MEDS: FUROSEMIDE INJ 20 MG/2 ML VIAL IV ONE (14:59)
[2024-04-14] MEDS: INSULIN ASPART PER UNIT CHARGE SC SCH (17:57)
[2024-04-14 20:37] LABS: Hematocrit (blood only) 26.9 % (42.0-52.0)
[2024-04-14] MEDS: FLUTICASONE/VILANTEROL 200/25MCG 14 PUFFS/INHALER INH SCH (21:01)
[2024-04-14] MEDS: GABAPENTIN 600 MG TAB PO SCH (21:02)
[2024-04-15] MEDS: FUROSEMIDE INJ 20 MG/2 ML VIAL IV ONE ×2 (02:45→18:01)
[2024-04-15] MEDS ORDERED: CARBOHYDRATES FOR HYPOGLYCEMIA PO PRN (04:15)
[2024-04-15] MEDS ORDERED: GLUCOSE 10 TAB/TUBE PO PRN (04:15)
[2024-04-15] MEDS ORDERED: GLUCOSE 40% GEL 15 GM TUBE PO PRN (04:15)
[2024-04-15] MEDS ORDERED: GLUCAGON FOR INJ 1 MG VIAL SQ PRN (04:15)
[2024-04-15] MEDS ORDERED: DEXTROSE 50% 50 ML SYRINGE IV PRN (04:15)
[2024-04-15] MEDS: METOPROLOL TARTRATE 1 MG/ML VIAL IV STA (04:36)
[2024-04-15 06:12] LABS: Hematocrit (blood only) 30.7 % (42.0-52.0); Hemoglobin 8.5 g/dl (14.0-18.0); Mean Corpuscular Hemoglobin 18.3 pg (25.0-34.0); Mean Corpuscular Hgb Conc 27.7 g/dL (32.0-36.0); Mean Corpuscular Volume 66.2 fL (80.0-100.0); Nucleated RBC # (auto) 0.05 K/uL (0.00-0.12); Nucleated RBC % (auto) 0.6 %; Platelet Count 197 K/uL (130-400); RDW Coefficient of Variation 26.8 % (11.5-14.5); Red Blood Count 4.64 M/uL (4.70-6.10); White Blood Count 8.51 K/ul (4.8-10.8)
[2024-04-15 06:30] LABS: Albumin Globulin Ratio 0.9 (0.9-2); Albumin Level 3.1 gm/dl (3.4-5.0); Bilirubin,Total 4.7 mg/dl (0.2-1.0); Calcium 8.2 mg/dl (8.6-10.3); Creatinine Clr Calc Pharmacy 63.8 ml/min; Globulin 3.4 gm/dl (2.5-4.0); Potassium 3.6 mmol/L (3.5-5.1); Total Protein 6.5 gm/dl (6.0-8.3)
--- NOTE | 2024-04-15 06:40 | Electrocardiogram Report ---
Test Reason : Blood Pressure : */* mmHG Vent. Rate : 153 BPM Atrial Rate : * BPM P-R Int : * ms QRS Dur : 78 ms QT Int : 264 ms P-R-T Axes : * 196 73 degrees QTcB Int : 421 ms Atrial fibrillation with rapid ventricular response Right superior axis deviation Abnormal ECG When compared with ECG of 04-May-2023 17:19, Questionable change in QRS axis Confirmed by Shawn Coreas ([id number]) on 04/15/2024 6:40:17 AM Referred By: REFERRED SELF Confirmed By: Shawn Coreas
[2024-04-15 06:48] LABS: Anisocytosis Present; Basophils # (auto) 0.03 K/uL (0.00-0.20); Basophils % (auto) 0.4 %; Eosinophils # (auto) 0.03 K/uL (0.00-0.50); Eosinophils % (auto) 0.4 %; Hypochromasia Present; Immature Granulocytes # (auto) 0.06 K/uL (0.01-0.20); Immature Granulocytes % (auto) 0.7 %; Lymphocytes # (auto) 0.71 K/uL (1.20-3.40); Lymphocytes % (auto) 8.3 %; Microcytosis Present; Monocytes # (auto) 0.94 K/uL (0.11-0.59); Neutrophils # (auto) 6.74 K/uL (1.40-6.50); Neutrophils % (auto) 79.2 %; Poikilocytosis Present; Polychromasia 1+; Tear Drop Cells 1+
[2024-04-15 07:18] LABS: Estimated Average Glucose 114 mg/dl; Hemoglobin A1C 5.6 % (4.5-5.6)
[2024-04-15] MEDS: ATORVASTATIN 20 MG TAB PO SCH (08:28)
[2024-04-15] MEDS: METOPROLOL SUCC 50MG EXT REL TAB PO SCH (08:29)
--- NOTE | 2024-04-15 09:23 | XCELERA ---
[id number]
[2024-04-15 17:17] LABS: Albumin Globulin Ratio 0.9 (0.9-2); Albumin Level 3.1 gm/dl (3.4-5.0); BUN Creatinine Ratio 20.8 (10-20); Bilirubin Direct 1.3 mg/dl (0-0.2); Bilirubin,Total 3.9 mg/dl (0.2-1.0); Creatinine Clr Calc Pharmacy 51.1 ml/min; Globulin 3.4 gm/dl (2.5-4.0); Potassium 3.7 mmol/L (3.5-5.1); Total Protein 6.5 gm/dl (6.0-8.3)
--- NOTE | 2024-04-15 21:49 | Hospitalist Progress Note ---
Date of Service April 15, 2024 Assessment & Plan (1) Anemia: Plan: This is a 74-year-old gentleman with past medical history of ulcerative proctitis, COPD, atrial fibrillation, hyperlipidemia who presented to the emergency department on 04/14/2024 with a chief complaint of shortness of breath. Symptoms of fatigue likely combination of anemia and CHF. No overt signs of bleeding, baseline hgb ~11 On Eliquis outpatient, last dose 04/14 AM. Hold pending stabilization of hgb. FOBT ordered pt w/ hx of ulcerative proctitis on balsalazide outpatient, last CN date uncertain CBC: hgb 6.3, microcytic 2 unit PRBC's transfused. hemglobin above 8. BMP: renal/electrolytes stable (2) Acute CHF (congestive heart failure): Plan: Patient w/ diminished lung sounds, SOB, dyspnea on exertion, and bilateral lower extremity seeping edema. Reportedly ran out of Lasix prescription a few days ago. Baseline room air, currently on 2L via nasal cannula. CXR: cardiomegaly w/ interstitial thickening suggestive of mild pulmonary edema. moderate right pleural effusion with right basilar opacity which could reflect pneumonia vs atelectasis. Emphysema BNP 04/14: 849 respiratory Biofire negative. Repeat Echo ordered last echo 05/2023 - EF 60-65%, mild mitral regurgitation Daily weights monitor I&O's ordered lasix x1 on 04/14 and 04/15 (3) Atrial fibrillation: Plan: Patient arrived in A fib RVR, reported history of A fib, follows with cardiology outpatient. S/p 5mg IV Lopressor x 2 in ED. remains tachycardic in 100s-110s Monitor on telemetry (4) Chronic obstructive pulmonary disease: Plan: Patient w/ history of emphysema, reportedly quit smoking in 2007. Continue home inhalers. Nebs prn CXR as above. (5) Hyperbilirubinemia: Plan: Total bilirubin elevated at 2.8, baseline ~ 0.8 etiology: secondary to edema vs GI in origin. AP 120, AST/ALT WNL. No abdominal imaging since 10/2020. consider repeat imaging if bili continues to uptrend. direct bilirrubin mildly elevated. will monitor. (6) Diabetes mellitus, type 2: Plan: On Metformin 500mg BID outpatient. Last a1c 05/2023: 6.3% BG 119 at time of admission. Novolog sliding scale inpatient, adjust as needed range 100-150 CF 25 AM hemoglobin A1c Plan Chronic conditions: Ulcerative proctitis: balsalazide HLD: statin Diet: heart healthy Disposition: telemetry DVT prophylaxis: on hold due to acute anemia, may resume Eliquis when able Code status: full Admission and Anticipated Discharge Date Admission Date: April 14, 2024 Subjective 74 yo male reports still having SOB, and orthopnea. Physical Exam Physical Exam: Constitutional: WD/WN, vitals as above Eyes: PERRL, conjunctivae normal, anicteric sclerae Respiratory: nilateral rales Cardiovascular: irregulary, irregular rhythm, tachycardic rate +2 pitting edema Gastrointestinal (Abdomen): normal bowel sounds, soft, nontender, no hepatosplenomegaly Skin: jaundiced Psychiatric: A+Ox3, euthymic affect Results & Data Results & Data Vital Signs (Past 12 Hours) Vital Signs Temp Pulse Pulse Resp BP Pulse Ox O2 Del Method 04/15/24 19:30 36.5 C 83 16 103/70 94 Nasal Cannula 04/15/24 15:51 36.3 C L 101 H 20 95/60 L 99 Nasal Cannula 04/15/24 14:45 112 H 04/15/24 14:42 126 H 04/15/24 11:37 37.0 C 106 H 20 110/75 94 Nasal Cannula 04/15/24 10:54 Nasal Cannula O2 Flow Rate 04/15/24 19:30 3 04/15/24 15:51 2 04/15/24 14:45 04/15/24 14:42 04/15/24 11:37 2 04/15/24 10:54 2 PG Care Time/CCT Total # of Minutes Spent Total Time Spent with Patient: Total time spent is greater than 50% in coordination of care (as documented) at patient's floor/unit and/or counseling patient: Coding Level of Care Code 41804 SUB INP/OBS CARE 2/35MIN Diagnoses Anemia, unspecified type D64.9 Anemia type: unspecified type Acute CHF (congestive heart failure) I50.9 Atrial fibrillation I48.91 Atrial fibrillation type: unspecified Chronic obstructive pulmonary disease J44.9 COPD type: emphysema Hyperbilirubinemia E80.6 Diabetes mellitus, type 2 E11.9 (1) Anemia Anemia type: unspecified type Qualified Code(s): D64.9 - Anemia, unspecified (3) Atrial fibrillation Atrial fibrillation type: unspecified Qualified Code(s): I48.91 - Unspecified atrial fibrillation (4) Chronic obstructive pulmonary disease COPD type: emphysema
[2024-04-16 07:03] LABS: Hematocrit (blood only) 31.2 % (42.0-52.0); Hemoglobin 8.3 g/dl (14.0-18.0); Mean Corpuscular Hgb Conc 26.6 g/dL (32.0-36.0); Mean Corpuscular Volume 67.7 fL (80.0-100.0); Nucleated RBC # (auto) 0.02 K/uL (0.00-0.12); Nucleated RBC % (auto) 0.2 %; Platelet Count 171 K/uL (130-400); RDW Coefficient of Variation 27.3 % (11.5-14.5); RDW Standard Deviation 62.5 fL (36.4-46.3); Red Blood Count 4.61 M/uL (4.70-6.10); White Blood Count 10.83 K/ul (4.8-10.8)
[2024-04-16 07:35] LABS: Albumin Globulin Ratio 0.8 (0.9-2); Albumin Level 2.8 gm/dl (3.4-5.0); BUN Creatinine Ratio 24.3 (10-20); Bilirubin,Total 2.9 mg/dl (0.2-1.0); Calcium 7.9 mg/dl (8.6-10.3); Creatinine Clr Calc Pharmacy 57.5 ml/min; Globulin 3.3 gm/dl (2.5-4.0); Potassium 3.6 mmol/L (3.5-5.1); Total Protein 6.1 gm/dl (6.0-8.3)
--- NOTE | 2024-04-16 09:52 | XRay Report ---
XR chest 2V PA/lateral HISTORY: 74 years-old Male hypoxia COMPARISON: 04/14/2024 TECHNIQUE: AP and lateral views of the chest FINDINGS: Cardiac silhouette is enlarged. Pulmonary vascular congestion with interstitial coarsening. Progressi ve right hilar and right greater than left bibasilar opacities. Right greater than left layering pleu ral effusions. No pneumothorax. Chronic left rib fractures. IMPRESSION: 1. Cardiomegaly with worsening pulmonary edema. 2. Right greater than left pleural effusions redemonstrated with progressive right basilar predominan t opacities. ACT 112: Negative or not required by law. The above report was generated using voice recognition software. It may contain grammatical, syntax o r spelling errors. Electronically signed by: German Aguilar M.D. 04/16/2024 9:51 AM
[2024-04-16] MEDS: FERROUS SULFATE 325 MG TAB PO SCH (10:03)
[2024-04-16] MEDS: FUROSEMIDE INJ 20 MG/2 ML VIAL IV ONE (10:03)
[2024-04-16] MEDS: APIXABAN 5 MG TABLET PO SCH (11:12)
--- NOTE | 2024-04-16 16:46 | Hospitalist Progress Note ---
Date of Service April 16, 2024 Assessment & Plan (1) Anemia: Plan: Patient is a 74-yo male with PMH of UC, COPD, atrial fibrillation, DM2, chronic diastolic CHF and pulmonary hypertension, and hyperlipidemia who presented with SOB and fatigue likely secondary to combination of anemia and CHF. No overt signs of bleeding, baseline hgb ~11 but for most of the last year has been with a hemoglobin of 7-8 with significant microcytosis with MCV 67. Transferrin saturation here quite low at 6%, ferritin not checked B12 normal, folate pending Has a history of ulcerative colitis but no umair blood in the stool that he has noticed. No hematuria. He is on Eliquis He has declined to have colonoscopy as recommended by GI within the last year Given left-sided abdominal pain for the last month and significant anemia-check CT abdomen/pelvis to look for colon mass given high risk with ulcerative colitis He was transfused 2 units PRBCs upon admission and hemoglobin improved and stable at 8.3 Start ferrous sulfate 325 mg p.o. twice daily Follow CBC now and as an outpatient routinely (2) Acute CHF (congestive heart failure): Plan: Acute on chronic systolic CHF Patient w/ diminished lung sounds, SOB, dyspnea on exertion, and bilateral lower extremity seeping edema. Reportedly ran out of Lasix prescription a few days prior to admission. Baseline room air, currently on 2L via nasal cannula. CXR: cardiomegaly w/ interstitial thickening suggestive of mild pulmonary edema. moderate right pleural effusion with right basilar opacity which could reflect pneumonia vs atelectasis. Emphysema BNP 04/14: 849 and respiratory Biofire negative. Echo here with LVEF 40-45%, moderately reduced RV systolic function, mild AI/MR, small pericardial effusion without tamponade, and severe pulmonary hypertension Continue diuresis daily as tolerated-give another Lasix 20 Mg IV x 1 today Weight down 7 kg since admission and reportedly lower extremity edema much improved, dyspnea much improved but remains on supplemental O2 Continue Daily weights, monitor I&O's, low-sodium diet Follow BMP (3) Atrial fibrillation: Plan: Patient arrived in A fib RVR, reported history of A fib, follows with cardiology outpatient. Tachycardia has improved with starting Toprol-XL 50 Mg p.o. twice daily but rates are still in the 90s to 110s with minimal exertion Blood pressures are soft limiting further increase metoprolol Continue to monitor on telemetry Resume Eliquis as no gross bleeding (4) Chronic obstructive pulmonary disease: Plan: Patient w/ history of emphysema, reportedly quit smoking in 2007. Continue home inhalers. Nebs prn (5) Hyperbilirubinemia: Plan: Total bilirubin elevated at 4, baseline ~ 0.8, secondary to hepatic congestion most likely-improving daily with diuresis AP 120, AST/ALT WNL. No abdominal imaging since 10/2020 and given left-sided abdominal pain as above- checking CT abdomen/pelvis (6) Diabetes mellitus, type 2: Plan: On Metformin 500mg BID outpatient. Last a1c 05/2023: 6.3% and now 5.6% Continue Novolog sliding scale inpatient, adjust as needed Plan Chronic conditions: Ulcerative proctitis: Continue balsalazide HLD: statin Disposition: Continued stay on telemetry, awaiting PT/OT evaluations which were ordered this morning to see if needs rehab DVT prophylaxis: on hold due to acute anemia, but stable now for 2 days status post transfusion-resume Eliquis Code status: full Admission and Anticipated Discharge Date Admission Date: April 14, 2024 Subjective Patient feeling better, less short of breath with walking to the bathroom and back with his walker. Feels his leg swelling is significantly improved No blood in the urine or stool. He does report at least a month of left-sided abdominal pain that seems to be fairly constant Telemetry with atrial fibrillation with rates in the 90s to 1 teens, but is high as the 170s with going to the bathroom Physical Exam Constitutional: WD/WN, vitals as above Respiratory: normal respiratory effort, lungs clear to auscultation Cardiovascular: Rate/Rhythm: regular rate and + irregularly irregular Heart Sounds: no murmur Extremities: + edema (Trace pitting edema of the legs bilaterally) Gastrointestinal (Abdomen): Inspection/Auscultation: abdomen normal to inspection; abdomen not distended Percussion/Palpation: + abdomen tender (Mild in LLQ without guarding or rebound) and abdomen soft; no abdominal mass and no pulsatile mass Psychiatric: A+Ox3, euthymic affect Results & Data Results & Data Vital Signs (Past 12 Hours) Vital Signs Temp Pulse Pulse Resp BP Pulse Ox O2 Del Method 04/16/24 15:26 36.4 C L 95 H 18 100/65 98 Nasal Cannula 04/16/24 11:33 36.4 C L 91 H 20 107/68 96 Nasal Cannula 04/16/24 07:50 36.7 C 102 H 18 104/72 92 Nasal Cannula 04/16/24 07:20 Nasal Cannula 04/16/24 07:09 105 H O2 Flow Rate 04/16/24 15:26 3 04/16/24 11:33 3 04/16/24 07:50 3 04/16/24 07:20 3 04/16/24 07:09 Laboratory Results CBC, BMP, BNP, LFTs reviewed Diagnostic Findings Chest x-ray reviewed PG Care Time/CCT Total # of Minutes Spent Total Time Spent with Patient: Total time spent is greater than 50% in coordination of care (as documented) at patient's floor/unit and/or counseling patient: Coding Level of Care Code 98770 SUB INP/OBS CARE 2MIN Diagnoses Anemia, unspecified type D64.9 Anemia type: unspecified type Acute CHF (congestive heart failure) I50.9 Atrial fibrillation I48.91 Atrial fibrillation type: unspecified Chronic obstructive pulmonary disease J44.9 COPD type: emphysema Hyperbilirubinemia E80.6 Diabetes mellitus, type 2 E11.9 (1) Anemia Anemia type: unspecified type Qualified Code(s): D64.9 - Anemia, unspecified (3) Atrial fibrillation Atrial fibrillation type: unspecified Qualified Code(s): I48.91 - Unspecified atrial fibrillation (4) Chronic obstructive pulmonary disease COPD type: emphysema
[2024-04-16] MEDS: ACETAMINOPHEN 325 MG TAB PO PRN (21:20)
[2024-04-17 10:25] LABS: Albumin Level 2.8 gm/dl (3.4-5.0); Bilirubin Direct 0.8 mg/dl (0-0.2); Bilirubin,Total 2.1 mg/dl (0.2-1.0); Creatinine Clr Calc Pharmacy 56.5 ml/min; Magnesium 1.7 mg/dl (1.7-2.4); Potassium 3.2 mmol/L (3.5-5.1); Total Protein 6.3 gm/dl (6.0-8.3)
[2024-04-17 10:42] LABS: Acanthocytes 1+; Basophils # (auto) 0.04 K/uL (0.00-0.20); Basophils % (auto) 0.4 %; Eosinophils # (auto) 0.29 K/uL (0.00-0.50); Eosinophils % (auto) 3.1 %; Hematocrit (blood only) 35.4 % (42.0-52.0); Hemoglobin 9.2 g/dl (14.0-18.0); Hypochromasia Present; Immature Granulocytes # (auto) 0.05 K/uL (0.01-0.20); Immature Granulocytes % (auto) 0.5 %; Lymphocytes # (auto) 0.93 K/uL (1.20-3.40); Mean Corpuscular Hemoglobin 17.9 pg (25.0-34.0); Mean Corpuscular Volume 68.9 fL (80.0-100.0); Monocytes # (auto) 0.94 K/uL (0.11-0.59); Monocytes % (auto) 10.2 %; Neutrophils # (auto) 7.01 K/uL (1.40-6.50); Neutrophils % (auto) 75.8 %; Ovalocytes 1+; Platelet Count 191 K/uL (130-400); Polychromasia 1+; RDW Coefficient of Variation 28.6 % (11.5-14.5); RDW Standard Deviation 66.2 fL (36.4-46.3); Red Blood Count 5.14 M/uL (4.70-6.10); Target Cells 1+; Tear Drop Cells 1+; White Blood Count 9.26 K/ul (4.8-10.8)
[2024-04-17] MEDS: POTASSIUM CHLORIDE CRTAB 20 MEQ TABCR PO STA (10:52)
[2024-04-17] MEDS: MAGNESIUM SULFATE / D5W 1 GM/100 ML BAG IV ONE (10:52)
[2024-04-17] MEDS: FUROSEMIDE 40 MG TAB PO SCH (12:36)
--- NOTE | 2024-04-17 13:56 | Hospitalist Progress Note ---
Date of Service April 17, 2024 Assessment & Plan (1) Anemia: Plan: Patient is a 74-yo male with PMH of UC, COPD, atrial fibrillation, DM2, chronic diastolic CHF and pulmonary hypertension, and hyperlipidemia who presented with SOB and fatigue likely secondary to combination of anemia and CHF. No overt signs of bleeding, baseline hgb ~11 but for most of the last year has been with a hemoglobin of 7-8 with significant microcytosis with MCV 67. Transferrin saturation here quite low at 6%, ferritin not checked prior to PRBC transfusion B12 normal, folate pending Has a history of ulcerative colitis but no umair blood in the stool that he has noticed. No hematuria. He is on Eliquis He has declined to have colonoscopy as recommended by GI within the last year Given left-sided abdominal pain for the last month and significant anemia-check CT abdomen/pelvis to look for colon mass given high risk with ulcerative colitis-still pending He was transfused 2 units PRBCs upon admission and hemoglobin improved now up to 9.2 Started ferrous sulfate 325 mg p.o. twice daily Follow CBC in AM and as an outpatient routinely (2) Acute CHF (congestive heart failure): Plan: Acute on chronic systolic CHF Patient w/ diminished lung sounds, SOB, dyspnea on exertion, and bilateral lower extremity seeping edema. Reportedly ran out of Lasix prescription a few days prior to admission. Baseline room air, currently on 2L via nasal cannula. CXR: cardiomegaly w/ interstitial thickening suggestive of mild pulmonary edema. moderate right pleural effusion with right basilar opacity which could reflect pneumonia vs atelectasis. Emphysema BNP 04/14: 849 and respiratory Biofire negative. Echo here with LVEF 40-45%, moderately reduced RV systolic function, mild AI/MR, small pericardial effusion without tamponade, and severe pulmonary hypertension Received IV Lasix 20 Mg daily for several days Weight down 8-10 kg since admission, I/Os not accurate at net -1.6L, and STEPHANIE meyer ma much improved, dyspnea much improved but remains on supplemental O2 Continue Daily weights, monitor I&O's, low-sodium diet Follow BMP Started lasix 40mg po daily today but will hold for orthostasis now (3) Atrial fibrillation: Plan: Patient arrived in A fib RVR, reported history of A fib, follows with cardiology outpatient. Tachycardia has improved with starting Toprol-XL 50 Mg p.o. twice daily -rates now 80-90s BPs now even lower after diuresis--> decrease Toprol to 50mg daily Continue to monitor on telemetry Continue Eliquis as no gross bleeding (4) Chronic obstructive pulmonary disease: Plan: Patient w/ history of emphysema, reportedly quit smoking in 2007. Continue home inhalers. Nebs prn (5) Hyperbilirubinemia: Plan: Total bilirubin elevated at 4, baseline ~ 0.8, secondary to hepatic congestion most likely-improving daily with diuresis-now down to 2.0 Alk phos/AST/ALT WNL. No abdominal imaging since 10/2020 and given left-sided abdominal pain as above- checking CT abdomen/pelvis (6) Diabetes mellitus, type 2: Plan: On Metformin 500mg BID outpatient. Last a1c 05/2023: 6.3% and now 5.6% Continue Novolog sliding scale inpatient, adjust as needed Plan Chronic conditions: Ulcerative proctitis: Continue balsalazide HLD: statin Disposition: Continued stay on telemetry, PT/OT evals recommend rehab-asked CM to make referrals DVT prophylaxis: [place] Code status: full Admission and Anticipated Discharge Date Admission Date: April 14, 2024 Subjective Pt sleeping but woke up easily. [place] lightheaded when working with PT and was a bit orthostatic. SOB is improving. Feels weak all over. Tele with Afib, rates better controlled in 80s-90s Physical Exam Constitutional: WD/WN, vitals as above Respiratory: normal respiratory effort, lungs clear to auscultation Cardiovascular: Rate/Rhythm: regular rate and + irregularly irregular Heart Sounds: no murmur Extremities: + edema (Trace pitting edema of the legs bilaterally) Gastrointestinal (Abdomen): Inspection/Auscultation: abdomen normal to inspection; abdomen not distended Percussion/Palpation: + abdomen tender (Mild in LLQ without guarding or rebound) and abdomen soft; no abdominal mass and no pulsatile mass Psychiatric: A+Ox3, euthymic affect Results & Data Results & Data Vital Signs (Past 12 Hours) Vital Signs Temp Pulse Resp BP Pulse Ox O2 Del Method O2 Flow Rate 04/17/24 11:40 Nasal Cannula 3 04/17/24 11:40 36.5 C 91 H 18 92/59 L 91 Nasal Cannula 2 04/17/24 08:41 36.3 C L 98 H 18 101/52 L 94 Nasal Cannula 2 04/17/24 04:30 36.5 C 97 H 18 101/69 95 Nasal Cannula 3 Laboratory Results CBC, BMP, LFTs, mag reviewed PG Care Time/CCT Total # of Minutes Spent Total Time Spent with Patient: Total time spent is greater than 50% in coordination of care (as documented) at patient's floor/unit and/or counseling patient: Coding Level of Care Code 37090 SUB INP/OBS CARE 2/35MIN Diagnoses Anemia, unspecified type D64.9 Anemia type: unspecified type Acute CHF (congestive heart failure) I50.9 Atrial fibrillation I48.91 Atrial fibrillation type: unspecified Chronic obstructive pulmonary disease J44.9 COPD type: emphysema Hyperbilirubinemia E80.6 Diabetes mellitus, type 2 E11.9 (1) Anemia Anemia type: unspecified type Qualified Code(s): D64.9 - Anemia, unspecified (3) Atrial fibrillation Atrial fibrillation type: unspecified Qualified Code(s): I48.91 - Unspecified atrial fibrillation (4) Chronic obstructive pulmonary disease COPD type: emphysema
[2024-04-17] MEDS: OPTIRAY 320 100ml IV ONE (15:12)
--- NOTE | 2024-04-17 15:34 | CT Scan Report ---
CT OF THE ABDOMEN AND PELVIS WITH CONTRAST CLINICAL HISTORY: LLQ pain,severe anemia,h/o UC,r/o mass COMPARISON STUDY: CT of the abdomen and pelvis November 25, 2020. TECHNIQUE: Following IV administration of 93 mL of Optiray, axial images of the abdomen and pelvis we re obtained from the lung bases to the proximal femurs. Images were reviewed in the axial, sagittal, and coronal planes. IV contrast was administered without complication. Automated exposure control wa s utilized for the study. A dose lowering technique was utilized adhering to the principles of ALARA . CT DOSE: 588.7 mGy.cm FINDINGS: Moderate right and small left pleural effusions are partially imaged. Compressive right low er lobe atelectasis is present. The heart is moderately enlarged. There is a small pericardial effusi on. No pneumatosis, free air or portal venous gas is present. Heterogeneous enhancement of the liver is noted. The IVC and hepatic veins are mildly dilated. Main, left and right portal veins are patent. 1.5 cm right hepatic lobe lesion on image 61 of 333 represents a cyst. There is no biliary or pancre atic ductal dilatation. There are small bilateral renal calculi. These measure up to 4 mm. There are no ureteral calculi. Hypodense bilateral renal lesions favor cysts. The gallbladder is surgically abs ent. 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 There is anasarca. Trace abd ominal and pelvic ascites. There is colonic diverticulosis without evidence for acute diverticulitis. There is no evidence for a bowel obstruction. No bowel wall thickening is identified. No mucosal les ion is identified although sensitivity is diminished given CT technique. There are no fluid collectio ns. Major vasculature is patent. Avascular necrosis of the right femoral head is again noted. IMPRESSION: 1. No bowel obstruction. No bowel wall thickening. Colonic diverticulosis without evidence for acute diverticulitis. No bowel mucosal lesion identified although sensitivity diminished given CT technique . 2. Cardiomegaly with a small pericardial effusion. Partially visualized moderate right and small left pleural effusions with compressive right lower lobe atelectasis. 3. Heterogeneous enhancement of the liver. Although nonspecific, this could represent passive hepatic congestion in the setting of right heart dysfunction. Underlying liver disease would be difficult to exclude. No suspicious hepatic lesions. 4. Anasarca. Trace abdominal and pelvic ascites. 5. Bilateral nephrolithiasis. ACT 112: Negative or not required by law. Electronically signed by: Julio C Escobar M.D. 04/17/2024 3:32 PM
[2024-04-18] MEDS: METOPROLOL SUCC 50MG EXT REL TAB PO SCH (08:02)
[2024-04-18 08:56] LABS: Hematocrit (blood only) 32.5 % (42.0-52.0); Hemoglobin 8.5 g/dl (14.0-18.0); Mean Corpuscular Hgb Conc 26.2 g/dL (32.0-36.0); Platelet Count 201 K/uL (130-400); RDW Coefficient of Variation 29.4 % (11.5-14.5); RDW Standard Deviation 68.8 fL (36.4-46.3); Red Blood Count 4.71 M/uL (4.70-6.10); White Blood Count 7.59 K/ul (4.8-10.8)
[2024-04-18 09:17] LABS: Acanthocytes 1+; Albumin Globulin Ratio 0.8 (0.9-2); Albumin Level 2.7 gm/dl (3.4-5.0); Anisocytosis Present; BUN Creatinine Ratio 25.5 (10-20); Basophils # (auto) 0.05 K/uL (0.00-0.20); Basophils % (auto) 0.7 %; Bilirubin,Total 1.5 mg/dl (0.2-1.0); Creatinine Clr Calc Pharmacy 57.7 ml/min; Eosinophils # (auto) 0.34 K/uL (0.00-0.50); Eosinophils % (auto) 4.5 %; Globulin 3.4 gm/dl (2.5-4.0); Hypochromasia Present; Immature Granulocytes # (auto) 0.05 K/uL (0.01-0.20); Immature Granulocytes % (auto) 0.7 %; Lymphocytes # (auto) 1.05 K/uL (1.20-3.40); Lymphocytes % (auto) 13.8 %; Magnesium 1.8 mg/dl (1.7-2.4); Microcytosis Present; Monocytes # (auto) 0.86 K/uL (0.11-0.59); Monocytes % (auto) 11.3 %; Neutrophils # (auto) 5.24 K/uL (1.40-6.50); Ovalocytes 1+; Polychromasia 2+; Potassium 3.7 mmol/L (3.5-5.1); Schistocytes 1+; Stomatocytes 1+; Target Cells 1+; Total Protein 6.1 gm/dl (6.0-8.3)
[2024-04-18 09:31] LABS: Thyroid Stimulating Hormone 5.015 uIu/ml (0.300-4.500)
[2024-04-18 10:07] LABS: T4 Free Thyroxine 1.11 ng/dl (0.61-1.60)
[2024-04-18] MEDS: FUROSEMIDE 20 MG TAB PO SCH (11:50)
--- NOTE | 2024-04-18 14:46 | Hospitalist Progress Note ---
Date of Service April 18, 2024 Assessment & Plan (1) Anemia: Plan: Patient is a 74-yo male with PMH of UC, COPD, atrial fibrillation, DM2, chronic diastolic CHF and pulmonary hypertension, and hyperlipidemia who presented with SOB and fatigue likely secondary to combination of anemia and CHF. No overt signs of bleeding, baseline hgb ~11 but for most of the last year has been with a hemoglobin of 7-8 with significant microcytosis with MCV 67. Transferrin saturation here quite low at 6%, ferritin not checked prior to PRBC transfusion B12 normal, folate pending Has a history of ulcerative colitis but no umair blood in the stool that he has noticed. No hematuria. He is on Eliquis He has declined to have colonoscopy as recommended by GI within the last year Given left-sided abdominal pain for the last month and significant anemia- checked CT abdomen/pelvis to look for colon mass given high risk with ulcerative colitis-no mass seen He was transfused 2 units PRBCs upon admission and hemoglobin improved - remaining stable at 8.5 Started ferrous sulfate 325 mg p.o. twice daily Follow CBC in AM and as an outpatient routinely (2) Acute CHF (congestive heart failure): Plan: Acute on chronic systolic CHF Patient w/ diminished lung sounds, SOB, dyspnea on exertion, and bilateral lower extremity seeping edema. Reportedly ran out of Lasix prescription a few days prior to admission. Baseline room air, remains on 2L via nasal cannula. CXR: cardiomegaly w/ interstitial thickening suggestive of mild pulmonary edema. moderate right pleural effusion with right basilar opacity which could reflect pneumonia vs atelectasis. Emphysema CT A/P shows pleural effusions BNP 14: 849 and respiratory Biofire negative. Echo here with LVEF 40-45%, moderately reduced RV systolic function, mild AI/MR, small pericardial effusion without tamponade, and severe pulmonary hypertension Received IV Lasix 20 Mg daily for several days, then had some orthostasis and lasix held, metoprolol dose reduced--> now orthostasis resolved-->resume lasix 20mg po daily Weight down 8-13 kg since admission, I/Os not accurate, and LE edema much improved, dyspnea much improved but remains on supplemental O2 Continue Daily weights, monitor I&O's, low-sodium diet BP cannot currently tolerate Entresto or ACEi/ARB. COUld add SGLT2 perhaps as outpt w/ PCP Follow BMP (3) Atrial fibrillation: Plan: Patient arrived in A fib RVR, reported history of A fib, follows with cardiology outpatient. Tachycardia has improved with starting Toprol-XL 50 Mg p.o. twice daily but then BPs low--> decreased to 50mg once daily. Rates 80-100s Continue to monitor on telemetry Continue Eliquis as no gross bleeding (4) Chronic obstructive pulmonary disease: Plan: Patient w/ history of emphysema, reportedly quit smoking in 2007. Continue home inhalers. Nebs prn (5) Hyperbilirubinemia: Plan: Total bilirubin elevated at 4, baseline ~ 0.8, secondary to hepatic congestion most likely-improving daily with diuresis-now down to 1.5 Alk phos/AST/ALT WNL. With subacute left-sided abdominal pain as above-checked CT abdomen/pelvis which showed heterogenous liver could be from congestion (6) Diabetes mellitus, type 2: Plan: On Metformin 500mg BID outpatient. Last a1c 05/2023: 6.3% and now 5.6% Continue Novolog sliding scale inpatient, adjust as needed Consider adding SGLT2-i given CHF and DM Continue gabapentin for neuropathy Plan Chronic conditions: Ulcerative proctitis: is prescribed balsalazide 2250mg po tid but is not on his home med rec--> unsure if he is actually taking it? HLD: statin Disposition: Stable for dc to rehab, awaiting bed at [facility]. DVT prophylaxis: [place] Code status: full Admission and Anticipated Discharge Date Admission Date: April 14, 2024 Anticipated date of discharge: 04/19/24 Subjective Pt reports he choked on a pea today with lunch. Otherwise says he likes to sleep a lot. Orthostatics negative today Tele with Afib, rates 80-100 Physical Exam Constitutional: WD/WN, vitals as above Respiratory: normal respiratory effort, lungs clear to auscultation Cardiovascular: Rate/Rhythm: regular rate and + irregularly irregular Heart Sounds: no murmur Extremities: + edema (Trace pitting edema of the legs bilaterally) Gastrointestinal (Abdomen): Inspection/Auscultation: abdomen normal to inspection; abdomen not distended Percussion/Palpation: abdomen soft; no abd ominal mass and no pulsatile mass Psychiatric: A+Ox3, euthymic affect Results & Data Results & Data Vital Signs (Past 12 Hours) Vital Signs Temp Pulse Pulse Resp BP Pulse Ox O2 Del Method 04/18/24 14:25 111 H 04/18/24 11:42 36.6 C 93 H 18 98/66 L 97 Nasal Cannula 04/18/24 09:07 Nasal Cannula 04/18/24 07:48 36.5 C 103 H 17 107/67 93 Nasal Cannula 04/18/24 07:15 98 H 04/18/24 03:16 36.9 C 104 H 18 109/61 94 Nasal Cannula O2 Flow Rate 04/18/24 14:25 04/18/24 11:42 2 04/18/24 09:07 2 04/18/24 07:48 2 04/18/24 07:15 04/18/24 03:16 3 Laboratory Results CBC, BMP, magnesium, TSH, folate reviewed PG Care Time/CCT Total # of Minutes Spent Total Time Spent with Patient: Total time spent is greater than 50% in coordination of care (as documented) at patient's floor/unit and/or counseling patient: Coding Level of Care Code 04046 SUB INP/OBS CARE 05/26MIN Diagnoses Anemia, unspecified type D64.9 Anemia type: unspecified type Acute CHF (congestive heart failure) I50.9 Atrial fibrillation I48.91 Atrial fibrillation type: unspecified Chronic obstructive pulmonary disease J44.9 COPD type: emphysema Hyperbilirubinemia E80.6 Diabetes mellitus, type 2 E11.9 (1) Anemia Anemia type: unspecified type Qualified Code(s): D64.9 - Anemia, unspecified (3) Atrial fibrillation Atrial fibrillation type: unspecified Qualified Code(s): I48.91 - Unspecified atrial fibrillation (4) Chronic obstructive pulmonary disease COPD type: emphysema
[2024-04-19 06:36] LABS: Hematocrit (blood only) 31.6 % (42.0-52.0); Hemoglobin 8.4 g/dl (14.0-18.0); Mean Corpuscular Hemoglobin 18.4 pg (25.0-34.0); Mean Corpuscular Hgb Conc 26.6 g/dL (32.0-36.0); Mean Corpuscular Volume 69.1 fL (80.0-100.0); Platelet Count 201 K/uL (130-400); RDW Coefficient of Variation 29.7 % (11.5-14.5); RDW Standard Deviation 70.4 fL (36.4-46.3); Red Blood Count 4.57 M/uL (4.70-6.10); White Blood Count 6.06 K/ul (4.8-10.8)
[2024-04-19 06:47] LABS: BUN Creatinine Ratio 23.6 (10-20); Calcium 8.1 mg/dl (8.6-10.3); Creatinine Clr Calc Pharmacy 70.5 ml/min; Magnesium 1.8 mg/dl (1.7-2.4); Potassium 3.8 mmol/L (3.5-5.1)
[2024-04-19 06:49] LABS: Basophils # (auto) 0.05 K/uL (0.00-0.20); Basophils % (auto) 0.8 %; Eosinophils # (auto) 0.29 K/uL (0.00-0.50); Eosinophils % (auto) 4.8 %; Hypochromasia Present; Immature Granulocytes # (auto) 0.03 K/uL (0.01-0.20); Immature Granulocytes % (auto) 0.5 %; Lymphocytes # (auto) 0.89 K/uL (1.20-3.40); Lymphocytes % (auto) 14.7 %; Microcytosis Present; Monocytes % (auto) 13.2 %; Poikilocytosis Present; Polychromasia 1+
--- NOTE | 2024-04-19 16:42 | Hospitalist Progress Note ---
Date of Service April 19, 2024 Assessment & Plan (1) Anemia: Plan: Patient is a 74-yo male with PMH of UC, COPD, atrial fibrillation, DM2, chronic diastolic CHF and pulmonary hypertension, and hyperlipidemia who presented with SOB and fatigue likely secondary to combination of anemia and CHF. No overt signs of bleeding, baseline hgb ~11 but for most of the last year has been with a hemoglobin of 7-8 with significant microcytosis with MCV 67. Transferrin saturation here quite low at 6%, ferritin not checked prior to PRBC transfusion B12 normal, folate normal, TSH mildly elevated at 5.0 Has a history of ulcerative colitis but no umair blood in the stool that he has noticed. No hematuria. He is on Eliquis He has declined to have colonoscopy as recommended by GI within the last year Given left-sided abdominal pain for the last month and significant anemia- checked CT abdomen/pelvis to look for colon mass given high risk with ulcerative colitis-no mass seen He was transfused 2 units PRBCs upon admission and hemoglobin improved - remaining stable at 8.4 for many days Started ferrous sulfate 325 mg p.o. twice daily Follow CBC as an outpatient at least 1-2 times per month initially (2) Acute CHF (congestive heart failure): Plan: Acute on chronic systolic CHF Patient w/ diminished lung sounds, SOB, dyspnea on exertion, and bilateral lower extremity seeping edema. Reportedly ran out of Lasix prescription a few days prior to admission. Baseline room air, remains on 2L via nasal cannula. CXR: cardiomegaly w/ interstitial thickening suggestive of mild pulmonary edema. moderate right pleural effusion with right basilar opacity which could reflect pneumonia vs atelectasis. Emphysema CT A/P shows pleural effusions BNP 04/14: 849 and respiratory Biofire negative. Echo here with LVEF 40-45%, moderately reduced RV systolic function, mild AI/MR, small pericardial effusion without tamponade, and severe pulmonary hypertension Received IV Lasix 20 Mg daily for several days, then had some orthostasis and lasix held, metoprolol dose reduced--> now orthostasis resolved-->resumed lasix 20mg po daily Weight down 11 kg since admission, I/Os not accurate, and LE edema resolved, dyspnea much improved but remains on supplemental O2 Continue Daily weights, monitor I&O's, low-sodium diet BP cannot currently tolerate Entresto or ACEi/ARB. Could add SGLT2 perhaps as outpt w/ PCP Follow BMP periodically (3) Atrial fibrillation: Plan: Permanent atrial fibrillation-patient arrived in A fib RVR, reported history of A fib, follows with cardiology outpatient. Tachycardia has improved with starting Toprol-XL 50 Mg p.o. twice daily but then BPs low--> decreased to 50mg once daily. Rates 80-100s Continue to monitor on telemetry Continue Eliquis as no gross bleeding Had a couple 3 beat runs of VT-keep magnesium and potassium replete-give p.o. potassium 20 mill equivalents daily with Lasix, give IV magnesium 1 g today and start magnesium oxide 400 mg p.o. at bedtime (4) Chronic obstructive pulmonary disease: Plan: Patient w/ history of emphysema, reportedly quit smoking in 2007. Continue home inhalers (5) Hyperbilirubinemia: Plan: Total bilirubin elevated at 4, baseline ~ 0.8, secondary to hepatic congestion most likely-improving daily with diuresis-now down to 1.5 Alk phos/AST/ALT WNL. With subacute left-sided abdominal pain as above-checked CT abdomen/pelvis which showed heterogenous liver could be from congestion (6) Diabetes mellitus, type 2: Plan: On Metformin 500mg BID outpatient. Last a1c 05/2023: 6.3% and now 5.6% Continue Novolog sliding scale inpatient, adjust as needed Consider adding SGLT2-i given CHF and DM Continue gabapentin for neuropathy Plan Chronic conditions: Ulcerative proctitis: is prescribed balsalazide 2250mg po tid but is not on his home med rec--> unsure if he is actually taking it? HLD: Continue statin Disposition: Stable for dc to rehab, awaiting bed at [facility] for many days DVT prophylaxis: Rajat Code status: full Admission and Anticipated Discharge Date Admission Date: April 14, 2024 Subjective Patient was out of bed to the hallway and back. Lying in bed taking a nap when I saw him in the afternoon. Denies shortness of breath. His roommate noticed that he was coughing a lot with eating. Speech evaluation showed no overt aspiration at bedside evaluation Telemetry with atrial fibrillation, PVCs, 2-3 beat runs of VT, rates 90s to 100s Physical Exam Constitutional: WD/WN, vitals as above Respiratory: normal respiratory effort, lungs clear to auscultation Cardiovascular: Rate/Rhythm: regular rate and + irregularly irregular Heart Sounds: no murmur Extremities: no edema Gastrointestinal (Abdomen): Inspection/Auscultation: abdomen normal to inspection; abdomen not distended Percussion/Palpation: + abdomen tender (Mild in LLQ without guarding or rebound) and abdomen soft; no abdominal mass and no pulsatile mass Psychiatric: A+Ox3, euthymic affect Results & Data Results & Data Vital Signs (Past 12 Hours) Vital Signs Temp Pulse Pulse Resp BP Pulse Ox O2 Del Method 04/19/24 13:48 90 04/19/24 11:47 36.6 C 93 H 18 107/71 100 Nasal Cannula 04/19/24 09:52 Nasal Cannula 04/19/24 07:31 36.6 C 98 H 16 123/73 95 Nasal Cannula 04/19/24 06:35 96 H O2 Flow Rate 04/19/24 13:48 04/19/24 11:47 2 04/19/24 09:52 2 04/19/24 07:31 2 04/19/24 06:35 Laboratory Results CBC, BMP, magnesium reviewed PG Care Time/CCT Total # of Minutes Spent Total Time Spent with Patient: Total time spent is greater than 50% in coordination of care (as documented) at patient's floor/unit and/or counseling patient: Coding Level of Care Code 53786 SUB INP/OBS CARE 2MIN Diagnoses Anemia, unspecified type D64.9 Anemia type: unspecified type Acute CHF (congestive heart failure) I50.9 Atrial fibrillation I48.91 Atrial fibrillation type: unspecified Chronic obstructive pulmonary disease J44.9 COPD type: emphysema Hyperbilirubinemia E80.6 Diabetes mellitus, type 2 E11.9 (1) Anemia Anemia type: unspecified type Qualified Code(s): D64.9 - Anemia, unspecified (3) Atrial fibrillation Atrial fibrillation type: unspecified Qualified Code(s): I48.91 - Unspecified atrial fibrillation (4) Chronic obstructive pulmonary disease COPD type: emphysema
[2024-04-19] MEDS: POTASSIUM CHLORIDE CRTAB 20 MEQ TABCR PO STA (17:46)
[2024-04-19] MEDS: MAGNESIUM SULFATE / D5W 1 GM/100 ML BAG IV ONE (17:46)
[2024-04-19] MEDS: MAGNESIUM OXIDE 400 MG TAB PO SCH (20:06)
[2024-04-20 05:24] LABS: Albumin Globulin Ratio 0.8 (0.9-2); Albumin Level 2.7 gm/dl (3.4-5.0); BUN Creatinine Ratio 20.2 (10-20); Bilirubin,Total 1.3 mg/dl (0.2-1.0); Calcium 8.1 mg/dl (8.6-10.3); Creatinine Clr Calc Pharmacy 63.3 ml/min; Globulin 3.4 gm/dl (2.5-4.0); Potassium 3.8 mmol/L (3.5-5.1); Total Protein 6.1 gm/dl (6.0-8.3)
[2024-04-20 07:28] VITALS: RESP 18; TEMP 97.5
[2024-04-20 08:31] LABS: Appearance Urine Clear (Clear); Bilirubin Urine Negative (Negative); Blood Urine Negative (Negative); Color Urine Yellow; Glucose Urine UA Negative (Negative); Ketones Urine Negative (Negative); Leukocyte Esterase Urine Negative (Negative); Nitrite Urine Negative (Negative); Protein Urine Negative (Negative); Specific Gravity Urine 1.009 (1.000-1.030); Urobilinogen Urine Negative (Negative)
[2024-04-20] MEDS: POTASSIUM CHLORIDE CRTAB 20 MEQ TABCR PO SCH (08:51)
[2024-04-20 08:53] LABS: Creatinine Urine Random 42.7 mg/dl; Protein Creatinine Ratio Urine 0.1 (0-0.2); Total Protein Urine Random 5.7 mg/dl (0-11.9)
[2024-04-20 11:44] VITALS: O2SAT 98
--- NOTE | 2024-04-20 13:42 | Discharge Summary ---
Discharge Summary Date of Service April 20, 2024 Principal Dx & Hospital Course #1 = Principal Diagnosis (1) Anemia: Khadar Bailey is a 74 year old male admitted to [facility] from April 14 - 2023 due to shortness of breath. He was diagnosed with iron deficiency anemia and acute on chronic heart failure with mildly reduced ejection fraction. We discussed further workup with EGD and colonoscopy which he declined. He was transfused 2 units of blood with hemoglobin improving from 6.3 to 8.4 on day prior to discharge. He was started on ferrous sulfate 325mg PO BID. He should also restart his previously prescribed sulfasalazine for ulcerative colitis (suspect he just stopped picking this up as no documentation he should have stopped it although not having overt abdominal pain or diarrhea suspect his iron deficiency if related to this). He was treated with diuretics for Acute on chronic HFmrEF and started on metoprolol succinate and will be prescribed on discharge. He is newly requiring oxygen at discharge, this can be re-evaluated at [facility] but may be required director long term care secondary to heart failure and COPD. (2) Acute CHF (congestive heart failure): (3) Atrial fibrillation: (4) Chronic obstructive pulmonary disease: (5) Hyperbilirubinemia: (6) Diabetes mellitus, type 2: Notes For Next Care Provider Monitor weight for worsening heart failure Monitor CBC for worsening anemia Medication Changes From Visit Sulfasalazine started at previously prescribed dose (patient unclear why he stopped this initially but last picked up in September) Lasix and metoprolol succinate started for heart failure Magnesium and potassium started to offset deficiency from newly prescribed Lasix Ferrous sulfate prescribed for iron deficiency anemia Admission HPI Per Admitting Provider This is a 74-year-old gentleman with past medical history of ulcerative proctitis, COPD, atrial fibrillation, hyperlipidemia who presented to the emergency department on 04/14/2024 with a chief complaint of shortness of breath. The patient was seen and examined. He was resting comfortably in bed. Patient reports that for the last few days he has noticed shortness of breath. He states that he also has been experiencing bilateral lower extremity edema. He r eports that he had run out of his Lasix pills and did not have a refill of his prescription a few days ago as well. This is when his shortness of breath has seemed to worsen. He uses wraps on his legs as he tells me that sometimes fluid will seep out of them. These were removed during his evaluation however he tells me that he has not changed these dressings in approximately a week. He denies any chest pain or palpitations. He denies any urinary symptoms. He denies any abdominal pain, nausea, vomiting. He denies any melena or hematochezia. He is on balsalazide for ulcerative proctitis. States that he is compliant with all of his medications/inhalers and he did take all of his medications this morning. He denied any fevers or chills. Patient tells me that he lives alone as well. Workup in the ED was positive for anemia with a hemoglobin of 6.3. His BMP did reveal stable renal and electrolytes. His total bili was elevated at 2.8. Upon review of this, he had a previous elevation in May 2023 1.9 but this is typically within normal limits. His BNP was elevated at 849 and his respiratory BioFire was negative. Chest x-ray was positive for a moderate right sided pleural effusion, mild pulmonary edema, emphysema. Discharge Exam Constitutional well developed; + not well nourished and no acute distress Respiratory normal respiratory effort; no respiratory distress Auscultation: + crackles (bibasal); no wheezes Cardiovascular Rate/Rhythm: regular rate and + irregularly irregular Heart Sounds: no murmur Extremities: + pedal edema (trace b/l equal) Gastrointestinal (Abdomen) normal bowel sounds, soft, nontender, no hepatosplenomegaly Discharge Plan Discharge Items Patient Disposition: Transfer Inpatient Rehab Fac Reason For Visit: SOB Discharge Diagnosis: Iron deficiency Anemia Acute on chronic heart failure with mildly reduced ejection fraction Hypoxia Activity: Resume your previous activity Non-emergency contact: Primary Care Provider Call non-emergency contact if: you have any medication questions and your symptoms worsen Follow-up/Referrals: Lupe Weinstein MD [Primary Care Provider] - Diet: Regular Addtl Attending Provider Instructions: You were admitted to [facility] from April 14 - 2023 due to shortness of breath. You were diagnosed with iron deficiency anemia and acute on chronic heart failure with mildly reduced ejection fraction. We discussed further workup with EGD and colonoscopy which you declined. Please start on ferrous sulfate (iron supplement) 325mg PO BID. Please also restart your previously prescribed sulfasalazine for your ulcerative colitis. You were also treated with diuretics (Lasix) for heart failure, please continue metoprolol and lasix as prescribed on discharge. You are still requiring oxygen on discharge, this will be re-evaluated at [facility] but may be required director long term care secondary to heart failure and COPD. Pending Studies at Discharge: No Stand-Alone Forms: My [facility] Skilled Items Patient informed of condition?: Yes DNR: No Discharge Level of Care: Acute rehab Communicable Disease: No Discharge Prognosis: Improving Lines: None Urinary Catheter: No Medications and DC Order Prescriptions: New metoprolol succinate 50 mg Tablet Extended Release 24 Hr 50 mg PO QAM Qty: 30 0RF potassium chloride 20 mEq Tablet,Er Particles/Crystals 20 meq PO QAM Qty: 30 0RF magnesium oxide 400 mg (241.3 mg magnesium) Tablet 400 mg PO HS Qty: 30 0RF furosemide 20 mg Tablet 20 mg PO QAM Qty: 30 0RF ferrous sulfate 325 mg (65 mg iron) Tablet,Delayed Release (Dr/Ec) 325 mg PO BIDM Qty: 60 0RF balsalazide 750 mg capsule 2,250 mg PO TID Qty: 270 0RF Continued (DME) blood-glucose meter [facility] [place] See Dose Instructions .ROUTE .MEDSUPPLY Qty: 1 0RF Dose Instruction: As directed Rx Instructions: As directed atorvastatin 20 mg tablet 20 mg PO QAM Qty: 90 3RF Rx Instructions: TAKE 1 TABLET BY MOUTH IN THE MORNING (DME) nebulizer and compressor Device See Rx Instructions .Route Qty: 1 0RF Rx Instructions: As directed four times a day. J44.9 metformin 500 mg tablet 500 mg PO BID Qty: 180 1RF Rx Instructions: TAKE 1 TABLET BY MOUTH TWICE DAILY FOR METABOLIC DISORDER Eliquis 5 mg tablet 5 mg PO Q12H Qty: 180 3RF gabapentin [Neurontin] 600 mg tablet 600 mg PO TID Qty: 90 5RF fluticasone propion-salmeterol [Advair Diskus] 250-50 mcg/dose blister with device 1 inh inhalation Q12H Qty: 60 2RF Discharge Orders: Discharge Order (Routine); Ordered 04/20/24 Ordered By: Moshe Tsang Admission Data Admit Date/Time: 04/14/24 13:50 Attending Provider: Moshe Tsang Admit Provider: Juan Taylor Primary Care Provider: Lupe Weinstein Other Providers: Juan Taylor Hospital Stay Data Consultations 04/14/24 13:08 ED Decision to Admit Stat Diagnostic Imagining Performed 04/17/24 16:45 CT abd pelvis IV con only Routine Pending Results Patient Have Any Pending Studies at Discharge: No Discharge Instructions Given to Patient (Per Discharging Provider) You were admitted to [facility] from April 14 - 2023 due to shortness of breath. You were diagnosed with iron deficiency anemia and acute on chronic heart failure with mildly reduced ejection fraction. We discussed further workup with EGD and colonoscopy which you declined. Please start on ferrous sulfate (iron supplement) 325mg PO BID. Please also restart your previously prescribed sulfasalazine for your ulcerative colitis. You were also treated with diuretics (Lasix) for heart failure, please continue metoprolol and lasix as prescribed on discharge. You are still requiring oxygen on discharge, this will be re-evaluated at [facility] but may be required director long term care secondary to heart failure and COPD. Total Time Total Time Spent Total Time Spent (In Minutes): 40 Coding Level of Care Code 27819 INP/OBS DISCH >30 MIN Diagnoses Anemia, unspecified type D64.9 Anemia type: unspecified type Acute CHF (congestive heart failure) I50.9 Atrial fibrillation I48.91 Atrial fibrillation type: unspecified Chronic obstructive pulmonary disease J44.9 COPD type: emphysema Hyperbilirubinemia E80.6 Diabetes mellitus, type 2 E11.9
[2024-04-20 15:09] VITALS: BP 117/70; PULSE 86
== END 2024-04-20 16:04 | DRG 291 ==
LOC: ED 12:02 → SUATTDRO 13:50 → 2N 13:50
DX: E80.6 Other disorders of bilirubin metabolism; Z87.891 Personal history of nicotine dependence; I50.23 Acute on chronic systolic (congestive) heart failure; J90 Pleural effusion, not elsewhere classified; D50.9 Iron deficiency anemia, unspecified; Z83.3 Family history of diabetes mellitus; I11.0 Hypertensive heart disease with heart failure; I27.20 Pulmonary hypertension, unspecified; J43.9 Emphysema, unspecified; Z79.84 Long term (current) use of oral hypoglycemic drugs; E78.5 Hyperlipidemia, unspecified; I48.21 Permanent atrial fibrillation; K51.20 Ulcerative (chronic) proctitis without complications; Z88.1 Allergy status to other antibiotic agents; E11.40 Type 2 diabetes mellitus with diabetic neuropathy, unspecified

== ENCOUNTER 2025-02-11 14:44 | Inpatient (IN) ==
[~2025-02-11 14:44] MED LIST changes: -ACETAMINOPHEN 1000 MG/100 ML IV IV SCH; -CEFAZOLIN 2000MG 2,000 MG/15 ML SYR IV SCH; -HEPARIN SOD (PORCINE) 5,000 UNITS/ML VIAL IV SCH; +KETAMINE HCL 10 MG/ML IV ONE; -LACTATED RINGER'S 1,000 ML IV SCH; +ROCURONIUM BROMIDE 10 MG/ML 5 ML VIAL IV ONE
[2025-02-11] MEDS: TRANEXAMIC ACID / 0.7% NACL 1,000 MG/100 ML BAG IV ONE (15:00)
[2025-02-11] MEDS: EPINEPHrine/NSS 4 MG/254 ML BAG IV SCH (15:13)
[2025-02-11] MEDS: CEFEPIME 2000MG 2,000 MG/20 ML SYR IV STA (15:16)
[2025-02-11] MEDS: KCENTRA (500unit vial) 2000 units IVP IV ONE (15:18)
[2025-02-11] MEDS ORDERED: STAT IV Infusion **Titration per Protocol STA (15:23)
[2025-02-11] MEDS: AMIODARONE / D5W 360 MG/200 ML BAG IV SCH ×2 (15:24→20:35)
[2025-02-11] MEDS: SODIUM CHLORIDE 0.9% 1,000 ML IV SCH (15:30)
[2025-02-11] MEDS ORDERED: 0.2 MICRON FILTER SET 1 EACH IV ONE (15:30)
[2025-02-11 15:31] LABS: Alanine Aminotransferase 23 U/L (7-52); Albumin Level 3.5 gm/dl (3.4-5.0); Alkaline Phosphatase 76 U/L (34-104); Anion Gap 19 (3-11); Bilirubin,Total 1.1 mg/dl (0.2-1.0); Blood Urea Nitrogen 63 mg/dl (6-23); Calcium 9.2 mg/dl (8.6-10.3); Carbon Dioxide 20 mmol/L (21-32); Chloride 100 mmol/L (98-107); Glucose 162 mg/dl (70-99(Fasting)); Magnesium 2.4 mg/dl (1.7-2.4); Potassium 5.8 mmol/L (3.5-5.1); Sodium 139 mmol/L (136-145); Total Protein 8.2 gm/dl (6.0-8.3)
[2025-02-11 15:33] LABS: Hematocrit (blood only) 54.6 % (42.0-52.0); Hemoglobin 16.9 g/dl (14.0-18.0); Mean Corpuscular Hemoglobin 30.2 pg (25.0-34.0); Mean Corpuscular Volume 97.7 fL (80.0-100.0); Platelet Count 243 K/uL (130-400); RDW Standard Deviation 51.8 fL (36.4-46.3); Red Blood Count 5.59 M/uL (4.70-6.10); White Blood Count 24.62 K/ul (4.8-10.8)
[2025-02-11 15:34] LABS: INR 1.7 (0.9-1.1); Partial Thromboplastin Time 34 Seconds (21-31); Prothrombin Time 17.3 Seconds (9.0-12.0)
[2025-02-11 15:43] LABS: Acanthocytes 2+; Dohle Bodies 1+; Immature Granulocytes # (auto) 1.18 K/uL (0.01-0.20); Immature Granulocytes % (auto) 4.8 %; Toxic Vacuolation 2+
--- NOTE | 2025-02-11 15:44 | XRay Report ---
XR chest 1V portable CLINICAL HISTORY: Sepsis COMPARISON STUDY: 04/16/2024 FINDINGS: Endotracheal tube tip is 2 cm above the janie. Nasogastric tube tip is in the proximal sto mach. There is stable cardiomegaly without pulmonary vascular congestion. There are reticular and hayde nt patchy opacities scattered at the right lung. No lobar consolidation or pleural effusion. No pneum othorax. Aortobiiliac endograft is partially visualized. Stable old left rib fractures. IMPRESSION: 1. Intubation as described. 2. Possible early pneumonia at the right lung. ACT 112: Negative or not required by law. Electronically signed by: Tommie Maldonado M.D. 02/11/2025 3:43 PM
[2025-02-11] MEDS: LACTATED RINGER'S 1,000 ML IV ONE (15:45)
--- NOTE | 2025-02-11 15:45 | Emergency Department Note ---
Impression & Plan Acute GI bleeding, Bradycardic cardiac arrest, Respiratory failure, Elevated troponin I level, Sepsis, Acute renal failure, Acute respiratory acidosis, Hematuria, Acute metabolic acidosis, Wide-complex tachycardia, Cystitis ED Provider Note NAME: OTTO BARRAGAN AGE: 74 SEX: M : 1950 ARRIVES VIA: Ambulance INFORMANT: Patient, the patient's family, EMS ED PROVIDER(S): Ruddy Urias DO CHIEF COMPLAINT: GI bleeding HPI: The patient is a 74-year-old male that arrived via ambulance. The patient was a prehospital medic command notification. The patient was with family over the weekend but they have not seen him in the last 2 days. The patient has a history of atrial fibrillation. He does take blood thinners. The patient was not heard from by his family for the last few days and when they did not hear from him today they called 911 for the patient to be checked on. When the patient was evaluated medic was notified and the patient was felt to be an extremis. He was noted to have rectal bleeding. He was obtunded and not answering questions. The patient received 2 units of blood prior to arrival by the planning coordinator. The patient had an IO line placed. He was only responsive to painful stimuli. There is no reported trauma. On my evaluation the patient responds to loud verbal commands and painful stimuli with opening his eyes but he cannot answer questions at this time. ROS: See above HPI for pertinent positives & negatives. A total of 10 systems reviewed and were otherwise negative. PAST MEDICAL HISTORY: See Below PAST SURGICAL HISTORY: See Below FAMILY HISTORY: See Below SOCIAL HISTORY: See Below HOME MEDICATIONS: See Below ALLERGIES: See Below VITALS: See Below PHYSICAL EXAMINATION: GENERAL: The patient is obtunded. He does not answer questions well. EYES: The conjunctivae are clear. The pupils are round and reactive. EARS, NOSE, MOUTH AND THROAT: The nose is without any evidence of any deformity. Mucous membranes are dry. NECK: The neck is nontender and supple. RESPIRATORY: Shallow and ineffective respirations were noted. CARDIOVASCULAR: Tachycardic and irregular heart sounds were noted to auscultation. GASTROINTESTINAL: The abdomen is soft and mildly distended. Rectal bleeding was noted with per gross blood per rectum. MUSCULOSKELETAL/EXTREMITIES: There is no deformity noted. SKIN: There is no significant pedal edema. NEUROLOGIC: The patient is awake to verbal commands. He does not follow commands well. MEDICAL DECISION MAKING: The patient is a 74-year-old male who presented to the emergency department for an evaluation. The patient was an extremis when the planning coordinator evaluated the patient on scene. The patient was found to have rectal bleeding. He was altered in his mentation. The patient was not breathing right. The patient was brought to the emergency department. He did receive 2 units of blood prior to arrival because of hypotension shock and rectal bleeding. The patient's blood pressure did improve when he got to the emergency department. He was found to be in rapid atrial fibrillation with a narrow complex tachycardia. His airway was not protected the patient was being bagged upon arrival. The decision was made to intubate the patient upon arrival. The patient did receive ketamine and rocuronium. He had a bradycardic episode and then went into cardiac arrest. He was resuscitated in usual fashion. He did receive CPR. He received epinephrine bicarbonate calcium as well as amiodarone after he had multiple episodes of wide-complex tachycardia. He was defibrillated. Ultimately he did have return of spontaneous circulation. He was treated further with IV fluids as well as Protonix drip. He was also treated with IV antibiotics as well as pressors. Central line was placed. The patient is still pending radiographic studies but he is not stable for CAT scan at this time. He was evaluated by the molecular modeler as well as by the [facility] hospice team. In the emergency department an arterial line was placed by the molecular modeler. Triage Nursing notes reviewed. Prior medical records reviewed Vital Signs: reviewed and remarkable for hypotension and tachycardia. Differential diagnosis: Diverticulosis, AVM, coagulopathy, colitis, inflammatory bowel disease, malignancy, Lisa-Felix tear, esophagitis, peptic ulcer disease, variceal bleed, gastritis, epistaxis, fissure, hemorrhoids, as well as other pathologies. ER treatment provided: See below Diagnostics interpreted by me: ECG: EKG was obtained in the emergency department. My interpretation is sinus tachycardia at 116 bpm. There were no PVCs noted. Nonspecific ST and T wave abnormalities were appreciated. This was compared to a tracing from April 14, 2024. Sinus rhythm has replaced rapid atrial fibrillation. Cardiac Monitoring: An order was placed for continuous cardiac monitoring. The monitor shows a rate of 109 bpm with sinus tachycardia. Laboratory studies: As stated above and show below. Imaging studies: See below. Radiographic imaging was reviewed by myself Consultation(s): I discussed this case with Dr. Pedraza who is on-call for the ICU. I discussed this case with Dr. Piedra who is on-call for the [facility] hospitalist group. ED COURSE: Procedures: Endotracheal Intubation Indication respiratory failure and cardiac arrest. The patient was on 100% oxygen via NRB prior to the procedure. Suction, airway equipment, RSI drugs, respiratory equipment, and appropriate personnel were prepared prior to the initiation of the procedure. A time out was taken. Induction was performed with ketamine and rocuronium. After observing the clinical benefit of the medications, the airway was easily visualized utilizing a glide scope. A 7.5 size ETT tube was placed atraumatically to 26 cm using standard technique. The cuff inflated without signs of malfunction. There were bilateral breath sounds, positive colormetric change, no gastric sounds, a good capnography waveform, and post procedure pulse oximetry was 88%. After the chest x-ray the endotracheal tube was pulled back 2 cm. Repeat x-ray does appear that the endotracheal tube is above the janie. The OG tube appears to be below the diaphragm. Femoral Central Venous Catheter Indication: Cardiac arrest Catheter Type: Triple-lumen Location: Right femoral vein Verbal consent was obtained after the risks and benefits were explained, including but not limited to intra-abdominal injury, vessel injury, bleeding, scarring, infection, pain, and bone/joint/nerve damage. At this time, the risks of the procedure are less than the risks of NOT performing the procedure. A time out was taken and the correct patient and site identified. The patient was placed in the supine position and the skin was prepped in the standard fashion with chlorhexidine and full sterile drapes applied. The proper landmarks were identified with ultrasound, anesthetized with 1% lidocaine without epinephrine, and the needle was inserted through the skin in the standard fashion. The needle was carefully advanced into blood vessel lumen with ultrasound guidance. The guidewire was placed uneventfully. The vessel is dilated and the catheter was placed. It was sutured into position. There was good blood return from all ports. The patient tolerated the procedure well and there were no complications. Critical Care: I have personally spent greater than 60 minutes of critical care time in the direct management of this patient. This includes bedside care, interpretation of diagnostic studies, and testing, discussion with consultants, patient, and family members, and other required patient management activities. This 60 minutes is in excess of all separately billable procedures. Past Med/Surg History Problem List Cystitis (Acute) Wide-complex tachycardia (Acute) Acute metabolic acidosis (Acute) Hematuria (Acute) Acute GI bleeding (Acute) Arterial line in place Endotracheally intubated Horowitz catheter in place Hemorrhage of genitourinary tract Mixed acid base balance disorder Acute gastrointestinal hemorrhage Type 2 myocardial infarction due to shock Consumptive coagulopathy Neutrophilic leukocytosis Acute respiratory failure with hypoxia Septic shock Cardiogenic shock Lactic acid acidosis Ventricular arrhythmia Shock AMS (altered mental status) Hyperkalemia GILLIAN (acute kidney injury) Acute respiratory acidosis (Acute) Acute renal failure (Acute) Sepsis (Acute) Elevated troponin I level (Acute) Respiratory failure (Acute) Bradycardic cardiac arrest (Acute) Leg edema, left Symptomatic anemia (Acute) CHF (congestive heart failure) (Acute) Hyperbilirubinemia Anemia (Acute) Abdominal aortic aneurysm s/p repair follows with [facility] Surg Dysphagia, oropharyngeal phase Peripheral vascular disease 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 Deaf Left ear non compliant with GTZ Hiatal hernia Pulmonary nodules Avascular necrosis Atrial fibrillation following with Dr. Arroyo HTN (hypertension) S/P prostatectomy 03/08/19 Dr. Robin Amaro- Robotic Assisted Laparoscopic Radical Retropubic Prostatectomy, Pelvic Lymph Node Dissection, Suprapubic Tube Placement 03/08/1919 Grade 1 view, MAC 3, ETT 7.5. Medical History Cardiomyopathy Poor historian PT non compliant and unware of PMH/medications Prostate cancer CMV colitis Neuropathy GI bleed hx Kidney stones Ulcerative colitis Diabetes mellitus, type 2 niddm Hyperlipidemia Surgical History H/O excision of mass (06/15/22) Excision of Right Upper Extremity Skin Lesion(Right) - Yaya Tena, History of colon resection due to cancer, approx 3 yrs ago per pt History of cataract surgery bilat History of prostate biopsy History of lithotripsy History of AAA (abdominal aortic aneurysm) repair History of tooth extraction all teeth removed History of colonoscopy Family History Brother Family history of diabetes mellitus FHx: prostate cancer Dementia Sister Family history of diabetes mellitus Breast cancer Family/Other Family history of diabetes mellitus nieces/nephews Father Lung cancer Sister Myocardial infarction, Onset Age: 66 [place] happened week of 11/10/18 Other No family history of adverse response to anesthesia Denies family history of Ovarian cancer Prostate cancer Colorectal cancer Social History Smoking Status: Unknown if ever smoked Tobacco Type: Cigarettes Age Started Using Tobacco: 19; Age Quit Using Tobacco: 54; packs per day: 2; Second Hand Exposure: No; Do You Dip or Chew Tobacco: No; Hx Alcohol Use: No Hx Substance Use: No Preferred Language: Welsh Communication Ability: Effective Communication Ability Comment: DEAF LEFT EAR/GTZ RIGHT EAR-DOESN'T USUALLY WEAR Visual Impairment: No Limitations Hearing Ability: Hard of Hearing Validation Software Facilitator Required: No Beliefs That Will Affect Care: None marital status: Current Living Situation: Alone Current Living Situation Comment: lives alone current occupational status: retired Feels Safe at Home: Yes Childhood Exposure to Second-Hand Smoke: Yes Diet: regular caffeine: Yes during the past year weight has: remained stable Dental Care, Regularly: No Physical Activity Frequency: Daily Seatbelt Use: always Sunscreen Use: No Assistive Devices: Cane and Hearing Aid - Right Allergies Allergies Allergy/AdvReac Type Severity Reaction Status Date / Time ciprofloxacin [Cipro] Allergy Severe hives, Verified 02/11/25 15:08 dizzy, vomitting azithromycin AdvReac Intermediate dizzy, Verified 02/11/25 15:08 vomitting Home Meds Home Medications Medication Instructions Recorded Confirmed fluticasone 250 mcg-salmeterol 50 1 inh inhalation BID 05/04/24 02/11/25 mcg/dose blistr powdr for inhalation furosemide 20 mg tablet 20 mg PO DAILY 02/11/25 02/11/25 Previous Rx's Medication Instructions Recorded blood-glucose meter #1 ea 12/06/18 nebulizer and compressor #1 ea 05/10/23 Oxygen Home #1 ea 05/04/24 apixaban 5 mg tablet (Eliquis) 5 mg PO Q12H #180 tabs 05/25/24 atorvastatin 20 mg tablet 20 mg PO QAM #90 tabs 05/25/24 empagliflozin 10 mg tablet 10 mg PO DAILY #90 tabs 05/25/24 (Jardiance) ferrous sulfate 325 mg (65 mg 325 mg PO BIDM #180 tabs 05/25/24 iron) tablet,delayed release gabapentin 600 mg tablet 600 mg PO TID #270 tabs 05/25/24 (Neurontin) lisinopril 2.5 mg tablet 2.5 mg PO DAILY #90 tabs 05/25/24 magnesium oxide 400 mg (241.3 mg 400 mg PO HS #90 tabs 05/25/24 magnesium) tablet metoprolol succinate 50 mg 50 mg PO QAM #90 tabs 05/25/24 tablet,extended release 24 hr potassium chloride 20 mEq 20 meq PO QAM #90 tabs 05/25/24 tablet,extended release(part/cryst) metformin 500 mg tablet 500 mg PO BID #180 tabs 11/06/24 balsalazide 750 mg capsule 2,250 mg (3 x 750 mg) PO TID #270 01/02/25 caps Results & Data (ED) Vital Signs Vital Signs - 24 hr 02/11/25 14:47 02/11/25 14:48 02/11/25 14:58 Temperature Temperature Source Pulse Rate 162 H 143 H Pulse Rate from SpO2 Sensor Respiratory Rate Blood Pressure Blood Pressure [Left Arm] Blood Pressure Mean Blood Pressure Mean [Left Arm] Pulse Oximetry Fraction of Inspired Oxygen Sepsis Recent Fever Within 48 Hours No Sepsis New/Unexplained Change in Mental Status Yes Sepsis Action Taken by Nursing No Action Required Arterial BP Systolic Arterial BP Diastolic Arterial BP Mean Arterial Pulse Rate End-Tidal CO2 02/11/25 14:58 02/11/25 15:02 02/11/25 15:07 Temperature Temperature Source Pulse Rate 58 L Pulse Rate from SpO2 Sensor Respiratory Rate Blood Pressure 100/67 Blood Pressure [Left Arm] 118/72 Blood Pressure Mean 72 Blood Pressure Mean [Left Arm] 87 Pulse Oximetry Fraction of Inspired Oxygen Sepsis Recent Fever Within 48 Hours Sepsis New/Unexplained Change in Mental Status Sepsis Action Taken by Nursing Arterial BP Systolic Arterial BP Diastolic Arterial BP Mean Arterial Pulse Rate End-Tidal CO2 02/11/25 15:09 02/11/25 15:09 02/11/25 15:12 Temperature Temperature Source Pulse Rate 128 H Pulse Rate from SpO2 Sensor Respiratory Rate 25 H Blood Pressure 199/154 H Blood Pressure [Left Arm] Blood Pressure Mean 167 Blood Pressure Mean [Left Arm] Pulse Oximetry Fraction of Inspired Oxygen Sepsis Recent Fever Within 48 Hours Sepsis New/Unexplained Change in Mental Status Sepsis Action Taken by Nursing Arterial BP Systolic Arterial BP Diastolic Arterial BP Mean Arterial Pulse Rate End-Tidal CO2 21 02/11/25 15:20 02/11/25 15:23 02/11/25 15:23 Temperature 36.6 C Temperature Source Horowitz Cath ( Temp Sensing) Pulse Rate 109 H Pulse Rate from SpO2 Sensor Respiratory Rate Blood Pressure 88/71 L Blood Pressure [Left Arm] Blood Pressure Mean 86 81 Blood Pressure Mean [Left Arm] Pulse Oximetry 80 L Fraction of Inspired Oxygen Sepsis Recent Fever Within 48 Hours Sepsis New/Unexplained Change in Mental Status Sepsis Action Taken by Nursing Arterial BP Systolic Arterial BP Diastolic Arterial BP Mean Arterial Pulse Rate End-Tidal CO2 45 02/11/25 15:25 02/11/25 15:27 02/11/25 15:30 Temperature Temperature Source Pulse Rate 109 H 110 H 111 H Pulse Rate from SpO2 Sensor Respiratory Rate 20 20 Blood Pressure 95/70 L 80/55 L Blood Pressure [Left Arm] Blood Pressure Mean 76 59 Blood Pressure Mean [Left Arm] Pulse Oximetry 82 L 95 99 Fraction of Inspired Oxygen Sepsis Recent Fever Within 48 Hours Sepsis New/Unexplained Change in Mental Status Sepsis Action Taken by Nursing Arterial BP Systolic Arterial BP Diastolic Arterial BP Mean Arterial Pulse Rate End-Tidal CO2 45 45 46 02/11/25 15:35 02/11/25 15:36 02/11/25 15:40 Temperature Temperature Source Pulse Rate 112 H 113 H 109 H Pulse Rate from SpO2 Sensor Respiratory Rate 20 20 Blood Pressure 81/60 L Blood Pressure [Left Arm] Blood Pressure Mean 68 Blood Pressure Mean [Left Arm] Pulse Oximetry 100 100 95 Fraction of Inspired Oxygen 100 Sepsis Recent Fever Within 48 Hours Sepsis New/Unexplained Change in Mental Status Sepsis Action Taken by Nursing Arterial BP Systolic Arterial BP Diastolic Arterial BP Mean Arterial Pulse Rate End-Tidal CO2 46 46 45 02/11/25 15:40 02/11/25 15:40 02/11/25 15:45 Temperature 37.5 C Temperature Source Horowitz Cath ( Temp Sensing) Pulse Rate 112 H 111 H Pulse Rate from SpO2 Sensor Respiratory Rate 20 Blood Pressure 79/59 L 81/57 L Blood Pressure [Left Arm] Blood Pressure Mean 66 68 Blood Pressure Mean [Left Arm] Pulse Oximetry 100 100 Fraction of Inspired Oxygen Sepsis Recent Fever Within 48 Hours Sepsis New/Unexplained Change in Mental Status Sepsis Action Taken by Nursing Arterial BP Systolic Arterial BP Diastolic Arterial BP Mean Arterial Pulse Rate End-Tidal CO2 46 45 02/11/25 15:48 02/11/25 15:50 02/11/25 15:51 Temperature Temperature Source Pulse Rate 108 H 108 H 109 H Pulse Rate from SpO2 Sensor 110 H Respiratory Rate 20 20 Blood Pressure 72/52 L Blood Pressure [Left Arm] Blood Pressure Mean 56 Blood Pressure Mean [Left Arm] Pulse Oximetry 100 100 100 Fraction of Inspired Oxygen Sepsis Recent Fever Within 48 Hours Sepsis New/Unexplained Change in Mental Status Sepsis Action Taken by Nursing Arterial BP Systolic Arterial BP Diastolic Arterial BP Mean Arterial Pulse Rate End-Tidal CO2 44 44 45 02/11/25 15:55 02/11/25 16:00 02/11/25 16:00 Temperature 37.5 C Temperature Source Horowitz Cath ( Temp Sensing) Pulse Rate 110 H 113 H Pulse Rate from SpO2 Sensor Respiratory Rate 20 Blood Pressure 69/54 L 71/48 L Blood Pressure [Left Arm] Blood Pressure Mean 60 56 Blood Pressure Mean [Left Arm] Pulse Oximetry 100 99 Fraction of Inspired Oxygen Sepsis Recent Fever Within 48 Hours Sepsis New/Unexplained Change in Mental Status Sepsis Action Taken by Nursing Arterial BP Systolic Arterial BP Diastolic Arterial BP Mean Arterial Pulse Rate End-Tidal CO2 45 46 02/11/25 16:03 02/11/25 16:05 02/11/25 16:15 Temperature Temperature Source Pulse Rate 114 H 114 H 115 H Pulse Rate from SpO2 Sensor 114 H Respiratory Rate 20 24 Blood Pressure 76/52 L 97/63 L Blood Pressure [Left Arm] Blood Pressure Mean 64 80 Blood Pressure Mean [Left Arm] Pulse Oximetry 99 99 100 Fraction of Inspired Oxygen Sepsis Recent Fever Within 48 Hours Sepsis New/Unexplained Change in Mental Status Sepsis Action Taken by Nursing Arterial BP Systolic Arterial BP Diastolic Arterial BP Mean Arterial Pulse Rate End-Tidal CO2 46 46 51 02/11/25 16:20 02/11/25 16:20 02/11/25 16:25 Temperature 37.1 C Temperature Source Horowitz Cath ( Temp Sensing) Pulse Rate 117 H 118 H Pulse Rate from SpO2 Sensor Respiratory Rate Blood Pressure 96/62 L 96/61 L Blood Pressure [Left Arm] Blood Pressure Mean 78 66 Blood Pressure Mean [Left Arm] Pulse Oximetry 99 99 Fraction of Inspired Oxygen Sepsis Recent Fever Within 48 Hours Sepsis New/Unexplained Change in Mental Status Sepsis Action Taken by Nursing Arterial BP Systolic Arterial BP Diastolic Arterial BP Mean Arterial Pulse Rate End-Tidal CO2 45 43 02/11/25 16:30 02/11/25 16:34 02/11/25 16:35 Temperature Temperature Source Pulse Rate 116 H 117 H Pulse Rate from SpO2 Sensor 116 H Respiratory Rate 26 H 26 H Blood Pressure 97/63 L 97/63 L Blood Pressure [Left Arm] Blood Pressure Mean 74 75 Blood Pressure Mean [Left Arm] Pulse Oximetry 99 98 Fraction of Inspired Oxygen 70 Sepsis Recent Fever Within 48 Hours Sepsis New/Unexplained Change in Mental Status Sepsis Action Taken by Nursing Arterial BP Systolic 106 Arterial BP Diastolic 48 Arterial BP Mean 66 Arterial Pulse Rate 116 H End-Tidal CO2 41 40 02/11/25 16:36 02/11/25 16:40 02/11/25 16:40 Temperature 36.1 C L Temperature Source Horowitz Cath ( Temp Sensing) Pulse Rate 114 H 117 H Pulse Rate from SpO2 Sensor 116 H Respiratory Rate 26 H Blood Pressure 96/64 L Blood Pressure [Left Arm] Blood Pressure Mean 74 Blood Pressure Mean [Left Arm] Pulse Oximetry 99 99 Fraction of Inspired Oxygen Sepsis Recent Fever Within 48 Hours Sepsis New/Unexplained Change in Mental Status Sepsis Action Taken by Nursing Arterial BP Systolic 104 Arterial BP Diastolic 47 Arterial BP Mean 64 Arterial Pulse Rate 117 H End-Tidal CO2 38 38 02/11/25 16:45 02/11/25 16:50 02/11/25 16:55 Temperature Temperature Source Pulse Rate 117 H 118 H 116 H Pulse Rate from SpO2 Sensor Respiratory Rate 26 H Blood Pressure 91/64 L 98/66 L 98/65 L Blood Pressure [Left Arm] Blood Pressure Mean 74 78 75 Blood Pressure Mean [Left Arm] Pulse Oximetry 98 99 98 Fraction of Inspired Oxygen Sepsis Recent Fever Within 48 Hours Sepsis New/Unexplained Change in Mental Status Sepsis Action Taken by Nursing Arterial BP Systolic Arterial BP Diastolic Arterial BP Mean Arterial Pulse Rate End-Tidal CO2 37 37 36 02/11/25 17:00 02/11/25 17:00 02/11/25 17:05 Temperature 36.0 C L Temperature Source Horowitz Cath ( Temp Sensing) Pulse Rate 117 H 116 H Pulse Rate from SpO2 Sensor 117 H Respiratory Rate 26 H Blood Pressure 104/67 107/65 Blood Pressure [Left Arm] Blood Pressure Mean 79 84 Blood Pressure Mean [Left Arm] Pulse Oximetry 98 98 Fraction of Inspired Oxygen Sepsis Recent Fever Within 48 Hours Sepsis New/Unexplained Change in Mental Status Sepsis Action Taken by Nursing Arterial BP Systolic 107 Arterial BP Diastolic 50 Arterial BP Mean 68 Arterial Pulse Rate 116 H End-Tidal CO2 35 35 02/11/25 17:09 02/11/25 17:15 02/11/25 17:20 Temperature 35.9 C L Temperature Source Horowitz Cath ( Temp Sensing) Pulse Rate 116 H 116 H Pulse Rate from SpO2 Sensor 117 H Respiratory Rate 26 H 26 H Blood Pressure 107/67 Blood Pressure [Left Arm] Blood Pressure Mean 82 Blood Pressure Mean [Left Arm] Pulse Oximetry 98 98 Fraction of Inspired Oxygen Sepsis Recent Fever Within 48 Hours Sepsis New/Unexplained Change in Mental Status Sepsis Action Taken by Nursing Arterial BP Systolic 110 Arterial BP Diastolic 52 Arterial BP Mean 70 Arterial Pulse Rate 116 H End-Tidal CO2 36 34 02/11/25 17:21 02/11/25 17:25 02/11/25 17:30 Temperature Temperature Source Pulse Rate 115 H 115 H 115 H Pulse Rate from SpO2 Sensor 115 H 116 H 115 H Respiratory Rate 26 H 26 H 26 H Blood Pressure 102/69 104/70 105/70 Blood Pressure [Left Arm] Blood Pressure Mean 80 81 81 Blood Pressure Mean [Left Arm] Pulse Oximetry 97 97 97 Fraction of Inspired Oxygen Sepsis Recent Fever Within 48 Hours Sepsis New/Unexplained Change in Mental Status Sepsis Action Taken by Nursing Arterial BP Systolic 110 107 110 Arterial BP Diastolic 53 52 54 Arterial BP Mean 71 69 71 Arterial Pulse Rate 116 H 115 H 115 H End-Tidal CO2 35 34 34 02/11/25 17:35 02/11/25 17:40 02/11/25 17:45 Temperature Temperature Source Pulse Rate 115 H 115 H Pulse Rate from SpO2 Sensor 115 H 115 H Respiratory Rate 26 H 26 H Blood Pressure 107/71 108/74 111/73 Blood Pressure [Left Arm] Blood Pressure Mean 80 86 85 Blood Pressure Mean [Left Arm] Pulse Oximetry 97 99 Fraction of Inspired Oxygen Sepsis Recent Fever Within 48 Hours Sepsis New/Unexplained Change in Mental Status Sepsis Action Taken by Nursing Arterial BP Systolic 105 108 Arterial BP Diastolic 55 56 Arterial BP Mean 72 73 Arterial Pulse Rate 115 H 115 H End-Tidal CO2 34 34 02/11/25 17:45 Temperature Temperature Source Pulse Rate Pulse Rate from SpO2 Sensor Respiratory Rate Blood Pressure 111/73 Blood Pressure [Left Arm] Blood Pressure Mean 85 Blood Pressure Mean [Left Arm] Pulse Oximetry Fraction of Inspired Oxygen Sepsis Recent Fever Within 48 Hours Sepsis New/Unexplained Change in Mental Status Sepsis Action Taken by Nursing Arterial BP Systolic Arterial BP Diastolic Arterial BP Mean Arterial Pulse Rate End-Tidal CO2 Home Medications Current Medication List: was personally reviewed by me Laboratory Data Attestation: I reviewed the patient's lab results. 02/11/25 14:53 02/11/25 19:21 Lab Results 02/11/25 02/11/25 02/11/25 Range/Units 14:45 14:53 14:56 WBC 24.62 H (4.8-10.8) K/ul RBC 5.59 (4.70-6.10) M/uL Hgb 16.9 (14.0-18.0) g/dl POC Hgb 18.7 H (14.0-18.0) g/dl Hct 54.6 H (42.0-52.0) % POC Hct 55 H (42-52) % MCV 97.7 (80.0-100.0) fL MCH 30.2 (25.0-34.0) pg MCHC 31.0 L (32.0-36.0) g/dL RDW Std Deviation 51.8 H (36.4-46.3) fL RDW Coeff of Kayy 14.2 (11.5-14.5) % Plt Count 243 (130-400) K/uL MPV 10.7 (9.4-12.4) fL Immature Gran % (Auto) 4.8 % Neut % (Auto) 84.8 % Lymph % (Auto) 6.2 % Carlisle % (Auto) 3.5 % Eos % (Auto) 0.4 % Baso % (Auto) 0.3 % Neut # (Auto) 20.90 H (1.40-6.50) K/uL Lymph # (Auto) 1.52 (1.20-3.40) K/uL Carlisle # (Auto) 0.86 H (0.11-0.59) K/uL Eos # (Auto) 0.09 (0.00-0.50) K/uL Baso # (Auto) 0.07 (0.00-0.20) K/uL Immature Gran # (Auto) 1.18 H (0.01-0.20) K/uL Toxic Vacuolation 2+ Dohle Bodies 1+ Acanthocytes (Spur) 2+ PT 17.3 H (9.0-12.0) Seconds INR 1.7 H (0.9-1.1) APTT 34 H (21-31) Seconds PTT Ratio 1.3 Fibrinogen > 860 H (184-400) mg/dl D-Dimer 6690 H* (0-500) ug/L FEU Heparin Anti-Xa, LM Wt 1.13 (< 0.10) IU/ML Specimen Type Sample Site POC pH (7.35-7.45) POC pCO2 (35-46) mmHg POC pO2 (80-95) mmHg POC HCO3 (19-24) mmol/L POC Base Excess (-9-1.8) mmol/L O2 Sat Pulse Oximetry ABG pH (Temp Correct) (7.35-7.45) ABG pCO2 (Temp Corrct (35-46) mmHg POC ABG pO2 at Pt Temp POC ABG O2 Sat (90-95) % Nahum Test VBG pH (7.36-7.41) VBG pCO2 (38-50) mmHg VBG pO2 mmHg VBG HCO3 VBG O2 Saturation % VBG Base Excess O2 Delivery Device Vent Mode POC FiO2 % End Tidal CO2 POC Sodium 140 (135-144) mmol/L Sodium 139 (136-145) mmol/L POC Potassium 5.7 H (3.3-5.0) mmol/L Potassium 5.8 H (3.5-5.1) mmol/L POC Chloride 109 (101-112) mmol/L Chloride 100 (98-107) mmol/L Carbon Dioxide 20 L (21-32) mmol/L POC Total CO2 22 L (24-31) mmol/L Anion Gap 19 H (3-11) POC Anion Gap 15.0 L (16-25) mmol/L POC BUN 67 H (7-18) mg/dl BUN 63 H (6-23) mg/dl Creatinine 5.70 H* (0.6-1.4) mg/dl POC Creatinine 5.8 H* (0.6-1.3) mg/dl Est Cr Clr Drug Dosing Not Reportable eGFR 9.72 BUN/Creatinine Ratio 11.1 (10-20) Glucose 162 H (70-99(Fasting)) mg/dl POC Glucose (other) 160 H (70-99) mg/dl Lactate 8.0 H* (0.4-2.0) mmol/L Calcium 9.2 (8.6-10.3) mg/dl POC Ioniz Calcium Evaristo 0.99 L (1.12-1.32) mmol/l Magnesium 2.4 (1.7-2.4) mg/dl Total Bilirubin 1.1 H (0.2-1.0) mg/dl Direct Bilirubin TNP AST 93 H (13-39) U/L ALT 23 (7-52) U/L Alkaline Phosphatase 76 (34-104) U/L Troponin I High Sens 577.1 H* (0-20) pg/ml Total Protein 8.2 (6.0-8.3) gm/dl Albumin 3.5 (3.4-5.0) gm/dl Procalcitonin > 100.00 H (0-0.5) ng/ml Blood Type Antibody Screen Crossmatch 02/11/25 02/11/25 02/11/25 Range/Units 15:27 15:49 16:13 WBC (4.8-10.8) K/ul RBC (4.70-6.10) M/uL Hgb (14.0-18.0) g/dl POC Hgb 13.3 L (14.0-18.0) g/dl Hct (42.0-52.0) % POC Hct 39 L (42-52) % MCV (80.0-100.0) fL MCH (25.0-34.0) pg MCHC (32.0-36.0) g/dL RDW Std Deviation (36.4-46.3) fL RDW Coeff of Kayy (11.5-14.5) % Plt Count (130-400) K/uL MPV (9.4-12.4) fL Immature Gran % (Auto) % Neut % (Auto) % Lymph % (Auto) % Carlisle % (Auto) % Eos % (Auto) % Baso % (Auto) % Neut # (Auto) (1.40-6.50) K/uL Lymph # (Auto) (1.20-3.40) K/uL Carlisle # (Auto) (0.11-0.59) K/uL Eos # (Auto) (0.00-0.50) K/uL Baso # (Auto) (0.00-0.20) K/uL Immature Gran # (Auto) (0.01-0.20) K/uL Toxic Vacuolation Dohle Bodies Acanthocytes (Spur) PT (9.0-12.0) Seconds INR (0.9-1.1) APTT (21-31) Seconds PTT Ratio Fibrinogen (184-400) mg/dl D-Dimer (0-500) ug/L FEU Heparin Anti-Xa, LM Wt (< 0.10) IU/ML Specimen Type Arterial Sample Site Art Line POC pH 6.99 L* (7.35-7.45) POC pCO2 75 H (35-46) mmHg POC pO2 427 H (80-95) mmHg POC HCO3 18 L (19-24) mmol/L POC Base Excess -13.0 L (-9-1.8) mmol/L O2 Sat Pulse Oximetry 100 ABG pH (Temp Correct) 6.986 L* (7.35-7.45) ABG pCO2 (Temp Corrct 76 H (35-46) mmHg POC ABG pO2 at Pt Temp 429 POC ABG O2 Sat 100.0 H (90-95) % Nahum Test NA VBG pH < 7.00 L (7.36-7.41) VBG pCO2 78 H (38-50) mmHg VBG pO2 84 mmHg VBG HCO3 TNP VBG O2 Saturation 94.8 % VBG Base Excess TNP O2 Delivery Device Ventilator Vent Mode AC POC FiO2 100 % End Tidal CO2 48 POC Sodium 143 (135-144) mmol/L Sodium (136-145) mmol/L POC Potassium 4.3 (3.3-5.0) mmol/L Potassium (3.5-5.1) mmol/L POC Chloride (101-112) mmol/L Chloride (98-107) mmol/L Carbon Dioxide (21-32) mmol/L POC Total CO2 20 L (24-31) mmol/L Anion Gap (3-11) POC Anion Gap (16-25) mmol/L POC BUN (7-18) mg/dl BUN (6-23) mg/dl Creatinine (0.6-1.4) mg/dl POC Creatinine (0.6-1.3) mg/dl Est Cr Clr Drug Dosing eGFR BUN/Creatinine Ratio (10-20) Glucose (70-99(Fasting)) mg/dl POC Glucose (other) (70-99) mg/dl Lactate (0.4-2.0) mmol/L Calcium (8.6-10.3) mg/dl POC Ioniz Calcium Evaristo (1.12-1.32) mmol/l Magnesium (1.7-2.4) mg/dl Total Bilirubin (0.2-1.0) mg/dl Direct Bilirubin AST (13-39) U/L ALT (7-52) U/L Alkaline Phosphatase (34-104) U/L Troponin I High Sens (0-20) pg/ml Total Protein (6.0-8.3) gm/dl Albumin (3.4-5.0) gm/dl Procalcitonin (0-0.5) ng/ml Blood Type A Positive Antibody Screen NEGATIVE Crossmatch See Detail 02/11/25 Range/Units 16:49 WBC (4.8-10.8) K/ul RBC (4.70-6.10) M/uL Hgb (14.0-18.0) g/dl POC Hgb 15.0 (14.0-18.0) g/dl Hct (42.0-52.0) % POC Hct 44 (42-52) % MCV (80.0-100.0) fL MCH (25.0-34.0) pg MCHC (32.0-36.0) g/dL RDW Std Deviation (36.4-46.3) fL RDW Coeff of Kayy (11.5-14.5) % Plt Count (130-400) K/uL MPV (9.4-12.4) fL Immature Gran % (Auto) % Neut % (Auto) % Lymph % (Auto) % Carlisle % (Auto) % Eos % (Auto) % Baso % (Auto) % Neut # (Auto) (1.40-6.50) K/uL Lymph # (Auto) (1.20-3.40) K/uL Carlisle # (Auto) (0.11-0.59) K/uL Eos # (Auto) (0.00-0.50) K/uL Baso # (Auto) (0.00-0.20) K/uL Immature Gran # (Auto) (0.01-0.20) K/uL Toxic Vacuolation Dohle Bodies Acanthocytes (Spur) PT (9.0-12.0) Seconds INR (0.9-1.1) APTT (21-31) Seconds PTT Ratio Fibrinogen (184-400) mg/dl D-Dimer (0-500) ug/L FEU Heparin Anti-Xa, LM Wt (< 0.10) IU/ML Specimen Type Sample Site POC pH (7.35-7.45) POC pCO2 (35-46) mmHg POC pO2 (80-95) mmHg POC HCO3 (19-24) mmol/L POC Base Excess (-9-1.8) mmol/L O2 Sat Pulse Oximetry ABG pH (Temp Correct) (7.35-7.45) ABG pCO2 (Temp Corrct (35-46) mmHg POC ABG pO2 at Pt Temp POC ABG O2 Sat (90-95) % Nahum Test VBG pH (7.36-7.41) VBG pCO2 (38-50) mmHg VBG pO2 mmHg VBG HCO3 VBG O2 Saturation % VBG Base Excess O2 Delivery Device Vent Mode POC FiO2 % End Tidal CO2 POC Sodium 143 (135-144) mmol/L Sodium (136-145) mmol/L POC Potassium 4.3 (3.3-5.0) mmol/L Potassium (3.5-5.1) mmol/L POC Chloride 107 (101-112) mmol/L Chloride (98-107) mmol/L Carbon Dioxide (21-32) mmol/L POC Total CO2 20 L (24-31) mmol/L Anion Gap (3-11) POC Anion Gap 21.0 (16-25) mmol/L POC BUN 56 H (7-18) mg/dl BUN (6-23) mg/dl Creatinine (0.6-1.4) mg/dl POC Creatinine 4.7 H* (0.6-1.3) mg/dl Est Cr Clr Drug Dosing eGFR BUN/Creatinine Ratio (10-20) Glucose (70-99(Fasting)) mg/dl POC Glucose (other) 175 H (70-99) mg/dl Lactate (0.4-2.0) mmol/L Calcium (8.6-10.3) mg/dl POC Ioniz Calcium Evaristo 1.10 L (1.12-1.32) mmol/l Magnesium (1.7-2.4) mg/dl Total Bilirubin (0.2-1.0) mg/dl Direct Bilirubin AST (13-39) U/L ALT (7-52) U/L Alkaline Phosphatase (34-104) U/L Troponin I High Sens (0-20) pg/ml Total Protein (6.0-8.3) gm/dl Albumin (3.4-5.0) gm/dl Procalcitonin (0-0.5) ng/ml Blood Type Antibody Screen Crossmatch Administered Medications Pantoprazole Sodium 40 mg/ (Dextrose) 100 mls @ 20 mls/hr IV Q5H MARITZA Stop: 03/13/25 15:14 Last Infusion: 02/11/25 19:11 Dose: 8 mg/hr, 20 mls/hr Documented By: Admin: 02/11/25 16:17 Dose: 8 mg/hr, 20 mls/hr Documented By: bull Amiodarone HCl/Dextrose (Nexterone / D5w) 360 mg in 200 mls @ 33.333 mls/hr IV .Q6H MARITZA Stop: 02/11/25 21:29 Last Infusion: 02/11/25 19:11 Dose: 1 mg/min, 33.3 mls/hr Documented By: SIMON Co-signed By: CHELO Admin: 02/11/25 15:24 Dose: 1 mg/min, 33.3 mls/hr Documented By: bull Co-signed By: MNE Epinephrine HCl () 4 mg in 254 mls @ 28.423 mls/hr IV .Q8H57M MARITZA; Protocol Stop: 03/13/25 15:29 Last Titration: 02/11/25 19:58 Dose: 0.17 mcg/kg/min, 48.3 mls/hr Documented By: TLM Co-signed By: ESG Titration: 02/11/25 19:33 Dose: 0.18 mcg/kg/min, 51.2 mls/hr Documented By: TLM Co-signed By: TMG Titration: 02/11/25 19:11 Dose: 0.19 mcg/kg/min, 54 mls/hr Documented By: ES Co-signed By: TLM Titration: 02/11/25 16:26 Dose: 0.2 mcg/kg/min, 56.8 mls/hr Documented By: cad Co-signed By: MNE Titration: 02/11/25 16:05 Dose: 0.21 mcg/kg/min, 59.7 mls/hr Documented By: cad Co-signed By: MNE Titration: 02/11/25 16:00 Dose: 0.2 mcg/kg/min, 56.8 mls/hr Documented By: cad Co-signed By: MNE Titration: 02/11/25 15:55 Dose: 0.15 mcg/kg/min, 42.6 mls/hr Documented By: cad Co-signed By: MNE Titration: 02/11/25 15:50 Dose: 0.14 mcg/kg/min, 39.8 mls/hr Documented By: cad Co-signed By: MNE Titration: 02/11/25 15:41 Dose: 0.13 mcg/kg/min, 36.9 mls/hr Documented By: cad Co-signed By: MNE Titration: 02/11/25 15:33 Dose: 0.12 mcg/kg/min, 34.1 mls/hr Documented By: cad Co-signed By: MNE Titration: 02/11/25 15:13 Dose: 0.1 mcg/kg/min, 28.4 mls/hr Documented By: cad Co-signed By: MNE Admin: 02/11/25 15:13 Dose: 0.1 mcg/kg/min, 28.4 mls/hr Documented By: cad Co-signed By: MNE Norepinephrine Bitartrate (Levophed/D5w) 4 mg in 250 mls @ 13.988 mls/hr IV .[id number] [facility]; Protocol Stop: 03/13/25 15:59 Last Titration: 02/11/25 19:11 Dose: 0.09 mcg/kg/min, 25.2 mls/hr Documented By: ES Co-signed By: TLM Titration: 02/11/25 18:00 Dose: 0.09 mcg/kg/min, 25.2 mls/hr Documented By: cad Co-signed By: MNE Titration: 02/11/25 16:34 Dose: 0.11 mcg/kg/min, 30.8 mls/hr Documented By: cad Co-signed By: MNE Titration: 02/11/25 16:26 Dose: 0.09 mcg/kg/min, 25.2 mls/hr Documented By: cad Co-signed By: MNE Titration: 02/11/25 16:05 Dose: 0.07 mcg/kg/min, 19.6 mls/hr Documented By: cad Co-signed By: MNE Admin: 02/11/25 16:00 Dose: 0.05 mcg/kg/min, 14 mls/hr Documented By: cad Co-signed By: MNE Vancomycin HCl 1,500 mg/ (Sodium Chloride) 530 mls @ 200 mls/hr IV NOW ONE Stop: 02/11/25 22:23 Last Admin: 02/11/25 20:06 Dose: 200 mls/hr Documented By: TLM Sodium Bicarbonate 150 meq/ (Sterile Water) 1,150 mls @ 150 mls/hr IV .Q7H40M MARITZA Stop: 03/13/25 19:29 Last Admin: 02/11/25 19:44 Dose: 150 mls/hr Documented By: TLM Discontinued Medications Amiodarone HCl/Dextrose (Amiodarone 360mg / 200ml D5w) Confirm Administered Dose 360 mg IV .STK-MED ONE Stop: 02/11/25 15:20 Last Admin: 02/11/25 16:46 Dose: Not Given Documented By: cad Amiodarone HCl/Dextrose (Amiodarone 150mg / 100ml D5w) Confirm Administered Dose 150 mg IV .STK-MED ONE Stop: 02/11/25 15:20 Last Admin: 02/11/25 16:47 Dose: Not Given Documented By: bull Tranexamic Acid (Tranexamic Acid / 0.7% Nacl) 1,000 mg in 100 mls @ 600 mls/hr IV NOW ONE Stop: 02/11/25 14:56 Last Infusion: 02/11/25 15:11 Dose: Infused Documented By: bull Admin: 02/11/25 15:00 Dose: 600 mls/hr Documented By: BIANCA Cefepime HCl (Maxipime 2000mg) 2,000 mg in 20 mls @ 5 mls/min IV NOW STA; Protocol Stop: 02/11/25 14:52 Last Admin: 02/11/25 15:16 Dose: 5 mls/min Documented By: bull Prothrombin Complex Concent ( (Human) 2,000 units/ Syringe) 80 mls @ 10 mls/min IV NOW ONE; Protocol Stop: 02/11/25 15:07 Last Admin: 02/11/25 15:18 Dose: 10 mls/min Documented By: bull Pantoprazole Sodium 80 mg/ (Dextrose) 120 mls @ 480 mls/hr IV NOW ONE Stop: 02/11/25 15:29 Last Infusion: 02/11/25 19:11 Dose: Infused Documented By: Admin: 02/11/25 15:42 Dose: 480 mls/hr Documented By: bull Sodium Chloride (Nss) 1,000 mls @ 999 mls/hr IV .Q1H1M MARITZA Stop: 02/11/25 17:45 Last Admin: 02/11/25 19:12 Dose: Not Given Documented By: Infusion: 02/11/25 16:30 Dose: Infused Documented By: ubll Admin: 02/11/25 15:30 Dose: 999 mls/hr Documented By: bull Lactated Ringer's (Lr) 1,000 mls @ 999 mls/hr IV .Q1H1M ONE Stop: 02/11/25 16:41 Last Infusion: 02/11/25 16:50 Dose: Infused Documented By: bull Admin: 02/11/25 15:45 Dose: 999 mls/hr Documented By: bull Miscellaneous (Stat Iv Infusion Titration Per Protocol) 1 each N/A NOW STA Stop: 02/11/25 15:56 Last Admin: 02/11/25 18:07 Dose: Not Given Documented By: bull Norepinephrine Bitartrate (Norepinephrine/D5w 4 Mg/250 Ml) Confirm Administered Dose 4 mg IV .STK-MED ONE Stop: 02/11/25 15:57 Last Admin: 02/11/25 16:47 Dose: Not Given Documented By: cad Imaging Data Attestation: I personally reviewed and interpreted this imaging study as follows: My Impression: 1 view chest x-ray was obtained in the emergency department. My interpretation is endotracheal tube is appropriately positioned. The OG tube appears to be appropriately positioned as well. There is atelectasis noted with possible infiltrate in the right lung. Final report below. Radiologist's Impression: Chest X-Ray 02/11/25 14:47 XR chest 1V portable CLINICAL HISTORY: Sepsis COMPARISON STUDY: 04/16/2024 FINDINGS: Endotracheal tube tip is 2 cm above the janie. Nasogastric tube tip is in the proximal stomach. There is stable cardiomegaly without pulmonary vascular congestion. There are reticular and faint patchy opacities scattered at the right lung. No lobar consolidation or pleural effusion. No pneumothorax. Aortobiiliac endograft is partially visualized. Stable old left rib fractures. IMPRESSION: 1. Intubation as described. 2. Possible early pneumonia at the right lung. ACT 112: Negative or not required by law. Electronically signed by: Tommie Maldonado M.D. 02/11/2025 3:43 PM Abdomen/Pelvis CT 02/11/25 15:29 EXAMINATION: CT of the chest, abdomen and pelvis performed without the administration of IV contrast TECHNIQUE: Helical CT images from the lung apices through the symphysis pubis were obtained without contrast. Coronal and sagittal reformatted images were generated at a workstation for further assessment. Dose reduction techniques were achieved by using automatic exposure control and/or adjustment of mA and/or kV according to patient size and/or use of iterative reconstruction technique. COMPARISON: None HISTORY: Unresponsive FINDINGS: Lines and tubes: Endotracheal tube tip in the mid thoracic trachea. Mediastinum/Neck Base: No thyroid nodules. Central tracheobronchial tree is patent. Heart size is enlarged. No pericardial effusion. Normal thoracic vasculature. No thoracic lymphadenopathy. Prominent aortic valve calcification. Mild coronary calcification. Lungs: There are trace bilateral pleural effusions. Scattered patchy irregular nodular opacities are seen throughout the lung bases in the posterior right upper lobe. There is severe emphysema. Liver: No suspicious liver lesions. Gallbladder: Cholecystectomy Spleen: Normal size. Pancreas: No suspicious pancreatic lesions. The pancreatic duct is not dilated. Adrenal glands: No adrenal nodules. Kidneys: No hydronephrosis or obstructing renal stones. Bladder / Pelvic organs: The urinary bladder wall is thickened. The bladder is incompletely distended with a Horowitz catheter in place. There is gross air in the urinary bladder, which may be related to catheterization. However there are also foci of air circumferentially extending along the mucosal surface of the urinary bladder wall internally, and foci inside the wall seen. There is free air noted above the urinary bladder, which appears to be in the extraperitoneal space surrounded by inflammatory fat stranding.. Bowel: No bowel obstruction. No abnormal bowel wall thickening. No evidence for appendicitis. Lymph nodes: No retroperitoneal, mesenteric, or pelvic lymphadenopathy. Peritoneum / Retroperitoneum: No free fluid or air within the abdomen. Vessels: No infrarenal aortic aneurysm. Aortoiliac stent in place. Right femoral central line tip at the common iliac vein. Bones and soft tissues: Degenerative changes of the spine. No acute osseous normality. IMPRESSION: 1. Patchy opacities throughout the lower lobes and posterior right upper lobe, are favored infectious. 2. Foci of air are seen circumferentially about the mucosal surface of the urinary bladder, as well as within the wall. Patchy foci of free air also appear to be seen outside the urinary bladder associated with fat stranding, and are confined to the extraperitoneal space, and are likely urinary bladder in origin. A bowel perforation seems less likely. The findings are suspicious for emphysematous cystitis. Electronically signed by Nacho Gutiérrez 02-11-2025 7:[address] 02/11/25 15:29 CT cervical spine without IV contrast History: Unresponsive Comparison: None Technique: Using multidetector thin collimation helical acquisition technique, axial, coronal and sagittal CT images through the cervical spine were obtained without intravenous contrast. Dose reduction techniques were achieved by using automatic exposure control and/or adjustment of mA and/or kV according to patient size and/or use of iterative reconstruction technique. Findings: The cervical vertebrae are normally aligned. Normal cervical lordosis. No acute fracture or subluxation. No prevertebral edema. Degenerative facet changes are seen, left greater than right. Mild multilevel uncovertebral arthropathy. No abnormality of the paraspinous soft tissues. Impression: No acute fracture or traumatic subluxation. Electronically signed by Nacho Gutiérrez 02-11-2025 7:[address] 02/11/25 15:29 EXAMINATION: CT of the chest, abdomen and pelvis performed without the administration of IV contrast TECHNIQUE: Helical CT images from the lung apices through the symphysis pubis were obtained without contrast. Coronal and sagittal reformatted images were generated at a workstation for further assessment. Dose reduction techniques were achieved by using automatic exposure control and/or adjustment of mA and/or kV according to patient size and/or use of iterative reconstruction technique. COMPARISON: None HISTORY: Unresponsive FINDINGS: Lines and tubes: Endotracheal tube tip in the mid thoracic trachea. Mediastinum/Neck Base: No thyroid nodules. Central tracheobronchial tree is patent. Heart size is enlarged. No pericardial effusion. Normal thoracic vasculature. No thoracic lymphadenopathy. Prominent aortic valve calcification. Mild coronary calcification. Lungs: There are trace bilateral pleural effusions. Scattered patchy irregular nodular opacities are seen throughout the lung bases in the posterior right upper lobe. There is severe emphysema. Liver: No suspicious liver lesions. Gallbladder: Cholecystectomy Spleen: Normal size. Pancreas: No suspicious pancreatic lesions. The pancreatic duct is not dilated. Adrenal glands: No adrenal nodules. Kidneys: No hydronephrosis or obstructing renal stones. Bladder / Pelvic organs: The urinary bladder wall is thickened. The bladder is incompletely distended with a Horowitz catheter in place. There is gross air in the urinary bladder, which may be related to catheterization. However there are also foci of air circumferentially extending along the mucosal surface of the urinary bladder wall internally, and foci inside the wall seen. There is free air noted above the urinary bladder, which appears to be in the extraperitoneal space surrounded by inflammatory fat stranding.. Bowel: No bowel obstruction. No abnormal bowel wall thickening. No evidence for appendicitis. Lymph nodes: No retroperitoneal, mesenteric, or pelvic lymphadenopathy. Peritoneum / Retroperitoneum: No free fluid or air within the abdomen. Vessels: No infrarenal aortic aneurysm. Aortoiliac stent in place. Right femoral central line tip at the common iliac vein. Bones and soft tissues: Degenerative changes of the spine. No acute osseous normality. IMPRESSION: 1. Patchy opacities throughout the lower lobes and posterior right upper lobe, are favored infectious. 2. Foci of air are seen circumferentially about the mucosal surface of the urinary bladder, as well as within the wall. Patchy foci of free air also appear to be seen outside the urinary bladder associated with fat stranding, and are confined to the extraperitoneal space, and are likely urinary bladder in origin. A bowel perforation seems less likely. The findings are suspicious for emphysematous cystitis. Electronically signed by Nacho Gutiérrez 02-11-2025 7:[address] 02/11/25 15:29 CT head without contrast History: Unresponsive Comparison: 04/18/2021 Technique: Using multidetector thin collimation helical acquisition technique, axial, coronal and sagittal CT images from the skull base to the vertex were obtained without intravenous contrast. Dose reduction techniques were achieved by using automatic exposure control and/or adjustment of mA and/or kV according to patient size and/or use of iterative reconstruction technique. Findings: No intracranial hemorrhage, mass-effect, or midline shift. The ventricles are proportionate to the cerebral sulci. The blackburn to white matter differentiation of the cerebral hemispheres is preserved. The basal cisterns are patent. There is moderate cerebral atrophy. Moderate, patchy low-attenuation changes in the white matter, most suggestive of sequelae of chronic small vessel ischemic disease. The visualized paranasal sinuses are clear. Mastoid air cells are clear. Impression: No acute intracranial pathology. Electronically signed by Nacho Gutiérrez 02-11-2025 7:02 PM Chest X-Ray 02/11/25 15:38 XR chest 1V portable CLINICAL HISTORY: tube placement COMPARISON STUDY: 02/11/2025 FINDINGS: Endotracheal tube tip is 4 cm above the janie. Nasogastric tube tip is in the proximal stomach. There is stable mild cardiomegaly without pulmonary vascular congestion. Stable faint reticular and patchy opacities scattered in the right lung. No pleural effusion or pneumothorax. IMPRESSION: Endotracheal tube tip is 4 cm above the janie. Otherwise stable. ACT 112: Negative or not required by law. Electronically signed by: Tommie Maldonado M.D. 02/11/2025 3:45 PM Discharge Plan Visit Data Chief Complaint: Unresponsive ED Provider: Ruddy Urias Discharge Problem: Acute GI bleeding, Bradycardic cardiac arrest, Respiratory failure, Elevated troponin I level, Sepsis, Acute renal failure, Acute respiratory acidosis, Hematuria, Acute metabolic acidosis, Wide-complex tachycardia, Cystitis Patient Disposition: Being Evaluated by Hospitalist Condition: Critical Discharge Instructions Interventions: ED Discharge Assessment Last Done: 02/11/25 18:24 Discharge Problem: Acute renal failure Qualifiers: Acute renal failure type: unspecified Qualified Code(s): N17.9 - Acute kidney failure, unspecified
[2025-02-11 15:56] LABS: Fibrinogen > 860 mg/dl (184-400)
[2025-02-11] MEDS: NOREPINEPHRINE/D5W 4 MG/250 ML PLCT IV SCH (16:00)
[2025-02-11 16:03] LABS: ANTI-Xa, LMWH(Low Molecular Wt 1.13 IU/ML (< 0.10)
[2025-02-11 16:06] LABS: Oxygen Saturation VBG 94.8 %; PCO2 VBG 78 mmHg (38-50); PO2 VBG 84 mmHg; pH VBG < 7.00 (7.36-7.41)
[2025-02-11] MEDS: PANTOprazole 40 MG in DEXTROSE 5% MINI-B 100 ML IV SCH (16:17)
[2025-02-11 16:38] LABS: iSTAT Art Bld Gas Base Excess -13.0 mmol/L (-9-1.8); iSTAT Art Bld Gas pCO2 Correct 76 mmHg (35-46); iSTAT Art Bld Gas pH Corrected 6.986 (7.35-7.45); iSTAT Arterial Blood Gas pO2 C 429
--- NOTE | 2025-02-11 16:38 | Procedure Note ---
Procedure Note Date of Service February 11, 2025 Procedure: Radial arterial line insertion, ultrasound-guided Tooling Specialist: Dr. Jil Pedraza Indication: Hypotension, shock Consent: Consent signed by patient and verified with timeout prior to procedure Procedure: Nahum test was performed to ensure adequate perfusion on the left wrist. Consent was not obtained due to emergency circumstances. Skin was cleaned with chlorhexidine and sterile drape and gloves were donned. The left radial artery was visualized under direct ultrasound guidance. Arrow radial arterial line kit needle was inserted into the left radial artery. Arterial blood was seen to pulsate in flash chamber. Internal guidewire was advanced into the radial artery and the catheter was advanced over the guidewire. Needle and wire were withdrawn. Pulsatile blood return from the catheter. Pressure was applied to the end of the catheter. Catheter was attached to the arterial line tubing. Pulsatile arterial waveform was visualized. Blood pressure 100/60. Catheter was secured with suture and dressing was applied. Patient tolerated the procedure well. Blood loss: Less than 2 cc Complications: None [facility] Procedure Codes (Charges) Tubes, Drains, and Vasc Access Procedure 1: Tubes, Drains, and Vasc Access: [id number] Arterial Cath/Cannulation Sampling/Monitoring/Transfusion Coding CPT Codes Tubes, Drains, and Vasc Access - Tubes, Drains, and Vasc Access: [id number] Arterial Cath/Cannulation Sampling/Monitoring/Transfusion ([id number]) Additional Codes Date of Service ([email or web address])
[2025-02-11] MEDS: AMIODARONE 360MG / 200ML D5W IV ONE (16:46)
[2025-02-11] MEDS: AMIODARONE 150MG / 100ML D5W IV ONE (16:47)
[2025-02-11] MEDS: NOREPINEPHRINE/D5W 4 MG/250 ML IV ONE (16:47)
--- NOTE | 2025-02-11 17:11 | Critical Care Consultation ---
Date of Consultation February 11, 2025 Assessment & Plan (1) Bradycardic cardiac arrest: (2) Respiratory failure: (3) Acute GI bleeding: (4) GILLIAN (acute kidney injury): (5) Hyperkalemia: (6) AMS (altered mental status): (7) Shock: (8) Ventricular arrhythmia: (9) Lactic acid acidosis: Plan Reason Critically Ill: Altered mental status Cardiac arrest status post CPR with ROSC 02/11/2025 Ventricular tachycardia Hypoxic and hypercapnic respiratory failure Gastrointestinal bleeding Acute renal failure with hyperkalemia Metabolic acidosis with lactic acidosis Shock state, likely septic shock Elevated liver enzymes Neuro: Unresponsive at this time, was following some commands prior to rest. During my examination the patient had received paralytics. CT head is pending. Will need ammonia level. Avoid sedatives at this time, if patient becomes more alert and is desynchronous with ventilator can start as needed fentanyl. Cardiac: Status post cardiac arrest with bradycardia and ventricular arrhythmia on 02/11/2025, successful ROSC with 1 round CPR. On epinephrine and norepinephrine for blood pressure support. Has a right groin central venous catheter and left radial arterial line. Continue to titrate vasopressors, slowly titrate to go up with norepinephrine and come down with epinephrine given increasing heart rate. Goal MAP of 65. Will need to trend lactic acid. Will need official echo, [id number] echo showing mildly dilated RV/RA, grossly preserved LVEF. Troponins are elevated, will trend, no anticoagulation or antiplatelets given his GI bleeding. Respiratory: Hypoxic hypercapnic respiratory failure. On mechanical ventilation, intubated 02/11/2025. Chest x-ray showing some mild reticulation but no other acute process. CT of the chest without contrast is pending. We will need a culture from the ET tube. Continue mechanical ventilation, tidal volume 450, rate 26. Titrate FiO2 down to a goal saturation of 90%. GI: Concern for upper and lower GI bleed. Patient does have a history of GI bleed. INR is elevated. AST is elevated. Family denies any history of alcohol use. Recommend checking ethanol level. Continue PPI infusion. Keep NG tube to low intermittent suction. Will need GI consultation for endoscopy. Monitor hemoglobin every [address] abdomen pelvis is pending. RENAL/LYTES: Patient is in GILLIAN. Has mild hyperkalemia. Severe lactic acidosis and metabolic acidosis. Keep Horowitz catheter in place. Monitor and replace/correct electrolytes. If renal function is not improving and the patient remains an uric then we will need a nephrology consult and possible dialysis, if patient is hemodynamically very unstable he may need transfer for CRRT. Obtain CK level. : Horowitz catheter was initially placed with only hemorrhagic fluid return. Is being replaced at this time. History of radical prostatectomy. ENDO: Monitor glucose. Stable this time. History of diabetes with recent A1c of 6.1%. HEME: Hemoglobin acceptable at this time, did have lower GI bleeding appreciated by medics and coffee-ground contents suctioned after NG tube was placed. Will need to monitor hemoglobin closely. Transfuse for hemoglobin less than 7, allow for higher transfusion limit if evidence of rapid bleeding and shock. ID: Will need blood cultures, urine culture and sputum culture. Procalcitonin is very elevated. Would recommend initiating broad-spectrum antibiotics at this time with vancomycin and Zosyn. Feeding: Keep n.p.o. Fluids: Received crystalloid volume resuscitation, avoid maintenance IV fluids. Can bolus as needed. Analgesia: None, can start as needed fentanyl if the patient starts waking up. Activity: Bedrest Thromboprophylaxis: Place SCDs, avoid chemical prophylaxis in setting of active bleeding. Ulcer prophylaxis: On PPI drip Glycemic control: Monitor glucose, no indication for insulin at this time. Indwelling catheters: Right groin central venous catheter placed emergently in the ER 02/11/2025, left radial A-line placed emergently in the emergency department 02/11/2025, ET tube, Horowitz catheter. Plan: Patient will be admitted to the ICU. Critically ill with multiorgan dysfunction. CT scans are pending. Family has been updated. I have personally spent 60 minutes of critical care time in the direct management of this patient. This is a life/limb threatening event. This includes time spent evaluating patient, direct bedside care, chart review, placing orders, interpretation of diagnostic studies, discussion with consultants, patient, and family members, as well as other required patient management activities. This time is exclusive of all separately billable procedures, and teaching time and separate from and in addition to any other critical care service time. History of Present Illness Reason for Consultation: Hypoxic respiratory failure, cardiac arrest, shock Requesting Physician: Dr. Urias History of Present Illness Patient is a 74-year-old male who is being admitted to the ICU with acute hypoxic respiratory failure, cardiac arrest and shock. The patient has a past medical history significant for congestive heart failure, diabetes mellitus type 2 (diet controlled, A1c 6.1), COPD, hypertension, atrial fibrillation not on anticoagulation, hearing loss (deaf in left ear) history of radical proctectomy, history of GI bleed and insomnia. The patient follows with his primary care provider and was recently evaluated on 01/07/2025 and had complaints of abdominal pain and had also endorsed some GI bleeding. The patient had been with his family over the weekend but they had not heard from him or seen him in the past 2 days therefore 911 was called to check on him. When medic arrived the patient was unresponsive and noted to have rectal bleeding, he was obtunded and not answering commands. The patient was transfused 2 units of blood while transferring to the emergency department. IO line was placed. In the emergency department he was somnolent, he only responded to painful stimul and very loud commands. The patient was hypotensive. Due to altered mental status and concern for rapid GI bleeding the decision was made to intubate. The patient was intubated successfully with a 7.5 ET tube. Just after intubation the patient developed bradycardia and arrested and then went into V. tach. He received CPR, amiodarone, bicarb with successful ROSC. Labs were significant for WBC 24, hemoglobin 16.9 (after 2 units), INR 1.7, D-dimer 6690, potassium 5.8, bicarb 20, anion gap 15, creatinine 5.7, glucose 162, lactate 8.0, AST 93, ALT 23, troponin 577 and procalcitonin greater than 100. ABG showed pH 6.99, pCO2 75 with a PaO2 of 427 on mechanical ventilation. Chest x-ray showed ET tube 4 cm above the janie, NG tube was in the proximal stomach, mild cardiomegaly with faint reticular opacities scattered throughout the right lung. No pneumothorax or effusions were noted. Nasogastric tube was placed with coffee-ground substance obtained 1 placed to suction. Horowitz catheter was placed however no urine returned and only dark blood. When I examined the patient he is status post Cardiac arrest. Epinephrine is running, Levophed was added. Arterial line was placed at bedside, blood pressure still marginal, heart rate in the 1 teens. ABG was obtained which showed significant acidosis with hypercapnia, ventilator was adjusted for a tidal volume of 450 and respiratory rate of 26. Bicarb was also administered. The patient is unresponsive however he did receive paralytics for intubation. [id number] ultrasound was obtained, EF is grossly preserved with hyperdynamic contractility, RV is slightly dilated as well as RA. Lungs are clear to auscultation. Family was present in the emergency department and I spoke with them about the patient's condition. The patient's twin brother and the twin brothers spouse was present. The patient does not have any children. He is but has been estranged from his for the past 3 years. His twin brother is close to him. He also has 3 sisters, some of them are older than him. Parents are . The family are not aware of what his wishes would be as far as life support/CPR/dialysis. They understand he is critically ill and wants to continue all aggressive measures at this time. Allergies Allergy/AdvReac Type Severity Reaction Status Date / Time ciprofloxacin [Cipro] Allergy Severe hives, Verified 02/11/25 15:08 dizzy, vomitting azithromycin AdvReac Intermediate dizzy, Verified 02/11/25 15:08 vomitting Home Medications Medication Instructions Recorded Confirmed Type blood-glucose meter #1 ea 12/06/18 01/07/25 Rx nebulizer and compressor #1 ea 05/10/23 01/07/25 Rx Oxygen Home #1 ea 05/04/24 01/07/25 Rx fluticasone 250 mcg-salmeterol 50 1 inh inhalation BID 05/04/24 02/11/25 History mcg/dose blistr powdr for inhalation apixaban 5 mg tablet (Eliquis) 5 mg PO Q12H #180 tabs 05/25/24 02/11/25 Rx atorvastatin 20 mg tablet 20 mg PO QAM #90 tabs 05/25/24 02/11/25 Rx empagliflozin 10 mg tablet 10 mg PO DAILY #90 tabs 05/25/24 02/11/25 Rx (Jardiance) ferrous sulfate 325 mg (65 mg 325 mg PO BIDM #180 tabs 05/25/24 02/11/25 Rx iron) tablet,delayed release gabapentin 600 mg tablet 600 mg PO TID #270 tabs 05/25/24 02/11/25 Rx (Neurontin) lisinopril 2.5 mg tablet 2.5 mg PO DAILY #90 tabs 05/25/24 02/11/25 Rx magnesium oxide 400 mg (241.3 mg 400 mg PO HS #90 tabs 05/25/24 02/11/25 Rx magnesium) tablet metoprolol succinate 50 mg 50 mg PO QAM #90 tabs 05/25/24 02/11/25 Rx tablet,extended release 24 hr potassium chloride 20 mEq 20 meq PO QAM #90 tabs 05/25/24 02/11/25 Rx tablet,extended release(part/cryst) metformin 500 mg tablet 500 mg PO BID #180 tabs 11/06/24 02/11/25 Rx balsalazide 750 mg capsule 2,250 mg (3 x 750 mg) PO TID #270 01/02/25 02/11/25 Rx caps furosemide 20 mg tablet 20 mg PO DAILY 02/11/25 02/11/25 History Patient History Medical History Cardiomyopathy Poor historian PT non compliant and unware of PMH/medications Prostate cancer CMV colitis Neuropathy GI bleed hx Kidney stones Ulcerative colitis Diabetes mellitus, type 2 niddm Hyperlipidemia Surgical History H/O excision of mass (06/15/22) Excision of Right Upper Extremity Skin Lesion(Right) - Yaya Tena DO History of colon resection due to cancer, approx 3 yrs ago per pt History of cataract surgery bilat History of prostate biopsy History of lithotripsy History of AAA (abdominal aortic aneurysm) repair History of tooth extraction all teeth removed History of colonoscopy Family History Brother Family history of diabetes mellitus FHx: prostate cancer Dementia Sister Family history of diabetes mellitus Breast cancer Family/Other Family history of diabetes mellitus nieces/nephews Father Lung cancer Sister Myocardial infarction, Onset Age: 66 [place] happened week of 11/10/18 Other No family history of adverse response to anesthesia Denies family history of Ovarian cancer Prostate cancer Colorectal cancer Social History Smoking Status: Former smoker Tobacco Type: Cigarettes Age Started Using Tobacco: 19; Age Quit Using Tobacco: 54; packs per day: 2; Second Hand Exposure: No; Do You Dip or Chew Tobacco: No; Hx Alcohol Use: No Hx Substance Use: No Preferred Language: Ivorian Communication Ability: Effective Communication Ability Comment: DEAF LEFT EAR/GTZ RIGHT EAR-DOESN'T USUALLY WEAR Visual Impairment: No Limitations Hearing Ability: Hard of Hearing Pet Caretaker Required: No Beliefs That Will Affect Care: None marital status: Current Living Situation: Alone Current Living Situation Comment: lives alone current occupational status: retired Feels Safe at Home: Yes Childhood Exposure to Second-Hand Smoke: Yes Diet: regular caffeine: Yes during the past year weight has: remained stable Dental Care, Regularly: No Physical Activity Frequency: Daily Seatbelt Use: always Sunscreen Use: No Assistive Devices: Cane and Hearing Aid - Right Review of Systems Review of Systems: No able to be obtained. Physical Exam Physical Exam: Physical examination: General: Disheveled, intubated, unresponsive. Thin. HEENT: Normocephalic, atraumatic. Extraocular movements intact. Sclera are nonicteric. No JVD appreciated. Skin: Warm and dry. No rashes appreciated. No jaundice appreciated. Cardiovascular: Sinus tachycardia, heart rate 117. [id number]-pi-[id number] ultrasound shows grossly preserved ejection fraction, mildly dilated RA/RV. Lungs: Clear bilaterally, no wheezing appreciated. On mechanical ventilation. Abdomen: Flat. NG tube is in place with coffee-ground substance appreciated in canister. Musculoskeletal: Normal muscle mass and tone. No gross joint deformity abnormalities. No effusions appreciated. Neurologic: Unresponsive, status post medications for intubation. : Horowitz catheter is in place, Dark red blood visualized in catheter. Results & Data Results & Data Vital Signs (Past 12 Hours) Vital Signs Pulse Resp BP Pulse Ox FiO2 02/11/25 15:40 109 H 20 95 100 02/11/25 15:09 128 H 02/11/25 15:02 58 L 02/11/25 14:58 118/72 02/11/25 14:58 143 H 02/11/25 14:48 162 H Laboratory Results Significant leukocytosis and procalcitonin greater than 100. And GILLIAN with mild hyperkalemia. Significant metabolic and respiratory acidosis. Diagnostic Findings Chest x-ray showing some mild reticulation. ET tube in NG tube are in good position. No pneumothorax appreciated. Medications Administered Bicarb was administered. Titrating norepinephrine and Levophed. [place] [address] CRITICAL CARE 1ST 30-74M Patient Type New Diagnoses Bradycardic cardiac arrest R00.1; I46.2 Respiratory failure J96.90 Acute GI bleeding K92.2 GILLIAN (acute kidney injury) N17.9 Hyperkalemia E87.5 AMS (altered mental status) R41.82 Shock R57.9 Ventricular arrhythmia I49.9 Lactic acid acidosis E87.20
--- NOTE | 2025-02-11 17:19 | History & Physical Report ---
Date of Service February 11, 2025 Assessment & Plan (1) Cardiogenic shock: (2) Septic shock: (3) Acute renal failure: (4) Bradycardic cardiac arrest: (5) Acute respiratory failure with hypoxia: (6) Neutrophilic leukocytosis: (7) Consumptive coagulopathy: (8) Type 2 myocardial infarction due to shock: (9) Acute gastrointestinal hemorrhage: (10) Mixed acid base balance disorder: (11) Hemorrhage of genitourinary tract: (12) Horowitz catheter in place: (13) Endotracheally intubated: (14) Arterial line in place: (15) Hyperkalemia: Plan In summary this is a 74-year-old critically ill male who was brought to the [facility] after being found unresponsive at home; last known well was 02/08 #Multifactorial shock // acute renal failure // type II myocardial infarction // Sepsis // Consumptive coagulopathy On presentation, the patient was critically ill and then deteriorated further to a cardiac arrest requiring ACLS protocol; ROSC was achieved in the intensive care unit was contacted for evaluation. At this time he is requiring 2 pressors to maintain mean arterial pressure greater than 65 mmHg, remains intubated, and is minimally responsive though not administered any sedating medications though he was administered paralytic during rapid sequence intubation. - Continue Cefepime 2 g IV twice daily for empiric antibiotic coverage - Start Vancomycin with Pharmacy consultation to assist with dose - Follow CBC with manual differential and CMP every 6 hours as discussed with organic gardening teacher - CT of head, cervical spine, chest, abdomen, and pelvis pending at this time Intensive care consulted; will continue to primarily manage the patient's hemodynamic status Nephrology consulted for recommendations and anticipatory guidance given the patient's degree of renal failure; family at bedside is unsure if the patient would have desired pursuing hemodialysis in the long-term or for short-term therapy to facilitate recovery Patient's troponin is elevated, inevitably will remain elevated after chest compressions and resuscitation attempts; do not recommend trending this value, continuous cardiac telemetry and as needed EKGs based on the patient's clinical status and telemetry to determine if there is any underlying ischemic change of significance #Gastrointestinal and Genitourinary hemorrhage, unspecified source Noted by EMS upon initial evaluation; status post 2 U PRBC en route to hospital; initial Hgb 18 downtrended to 15 within 2 hours, could be consequential of dilution and laboratory variability but considering the patient's degree of genitourinary hemorrhage and instability would caution this may be a still active hemorrhage; Horowitz catheter in place with persistent bloody output - Continue pantoprazole 40 mg IV q 6 hours - Follow CBC as above and trend coagulation panel every 6 hours to determine need for FFP, CP, or platelet infusion - Keep 2 units on hold for future need - Unstable for gastrointestinal and urologic evaluation at this time; consider consultation if stabilizes overnight or exhibits acute hemorrhage needing emergent intervention #Type II diabetes mellitus with hyperglycemia, not requiring insulin therapy Most recent A1c of 6.1%; given their critically ill state, goal to maintain serum glucose less than 180 - Pharmacy consulted for assistance with glycemic management History of Present Illness Chief Complaint: Unresponsive Primary Care Provider: Lupe Weinstein MD Mr. Bailey is a 74-year-old male whose active medical conditions include type 2 diabetes mellitus with peripheral angiopathy, vascular insufficiency, benign prostatic hyperplasia with LUTS, chronic obstructive pulmonary disease, atrial fibrillation among other chronic medical conditions who was brought to the [facility] by EMS after being found unresponsive on the morning of 02/11. At the time my evaluation the patient has been intubated, not currently on any sedation and is unable to participate in any form of history/review of systems. The patient's family is available at bedside for a limited history; they describe that they last heard from the patient via telephone on 02/08, he seemed to be in his usual state of health. They had not heard from the patient over the weekend, which was not initially concerning however again did not hear from him nor was he responding to telephone calls in the morning of 02/11 which led to a wellness check to be called at which time he was found unresponsive. When he was found, he was noted to have a large amount of rectal bleeding, obtunded, unresponsive. En route to the hospital he was provided 2 units of PRBC via IO in the left tibia. At that time he was responsive to painful stimuli. There is no noted physical trauma on his initial evaluation. While the patient was in the emergency department, he had a cardiac arrest and ACLS was initiated as the patient's CODE STATUS was otherwise unknown. The patient was subsequently intubated as well, without complication. He did require 2 shocks and multiple rounds of epinephrine during his resuscitation. ROSC was achieved. Allergies Allergy/AdvReac Type Severity Reaction Status Date / Time ciprofloxacin [Cipro] Allergy Severe hives, Verified 02/11/25 15:08 dizzy, vomitting azithromycin AdvReac Intermediate dizzy, Verified 02/11/25 15:08 vomitting Home Medications Medication Instructions Recorded Confirmed Type blood-glucose meter #1 ea 12/06/18 01/07/25 Rx nebulizer and compressor #1 ea 05/10/23 01/07/25 Rx Oxygen Home #1 ea 05/04/24 01/07/25 Rx fluticasone 250 mcg-salmeterol 50 1 inh inhalation BID 05/04/24 02/11/25 History mcg/dose blistr powdr for inhalation apixaban 5 mg tablet (Eliquis) 5 mg PO Q12H #180 tabs 05/25/24 02/11/25 Rx atorvastatin 20 mg tablet 20 mg PO QAM #90 tabs 05/25/24 02/11/25 Rx empagliflozin 10 mg tablet 10 mg PO DAILY #90 tabs 05/25/24 02/11/25 Rx (Jardiance) ferrous sulfate 325 mg (65 mg 325 mg PO BIDM #180 tabs 05/25/24 02/11/25 Rx iron) tablet,delayed release gabapentin 600 mg tablet 600 mg PO TID #270 tabs 05/25/24 02/11/25 Rx (Neurontin) lisinopril 2.5 mg tablet 2.5 mg PO DAILY #90 tabs 05/25/24 02/11/25 Rx magnesium oxide 400 mg (241.3 mg 400 mg PO HS #90 tabs 05/25/24 02/11/25 Rx magnesium) tablet metoprolol succinate 50 mg 50 mg PO QAM #90 tabs 05/25/24 02/11/25 Rx tablet,extended release 24 hr potassium chloride 20 mEq 20 meq PO QAM #90 tabs 05/25/24 02/11/25 Rx tablet,extended release(part/cryst) metformin 500 mg tablet 500 mg PO BID #180 tabs 11/06/24 02/11/25 Rx balsalazide 750 mg capsule 2,250 mg (3 x 750 mg) PO TID #270 01/02/25 02/11/25 Rx caps furosemide 20 mg tablet 20 mg PO DAILY 02/11/25 02/11/25 History Past Med/Surg History Problem List Arterial line in place Endotracheally intubated Horowitz catheter in place Hemorrhage of genitourinary tract Mixed acid base balance disorder Acute gastrointestinal hemorrhage Type 2 myocardial infarction due to shock Consumptive coagulopathy Neutrophilic leukocytosis Acute respiratory failure with hypoxia Septic shock Cardiogenic shock Lactic acid acidosis Ventricular arrhythmia Shock AMS (altered mental status) Hyperkalemia GILLIAN (acute kidney injury) Acute respiratory acidosis (Acute) Acute renal failure (Acute) Sepsis (Acute) Elevated troponin I level (Acute) Respiratory failure (Acute) Bradycardic cardiac arrest (Acute) Leg edema, left Symptomatic anemia (Acute) CHF (congestive heart failure) (Acute) Hyperbilirubinemia Anemia (Acute) Abdominal aortic aneurysm s/p repair follows with Count includes the [facility] Dysphagia, oropharyngeal phase Peripheral vascular disease 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 Deaf Left ear non compliant with GTZ Hiatal hernia Pulmonary nodules Avascular necrosis Atrial fibrillation following with Dr. Arroyo HTN (hypertension) S/P prostatectomy 03/08/19 Dr. Robin Amaro- Robotic Assisted Laparoscopic Radical Retropubic Prostatectomy, Pelvic Lymph Node Dissection, Suprapubic Tube Placement 03/08/1919 Grade 1 view, MAC 3, ETT 7.5. Medical History Cardiomyopathy Poor historian PT non compliant and unware of PMH/medications Prostate cancer CMV colitis Neuropathy GI bleed hx Kidney stones Ulcerative colitis Diabetes mellitus, type 2 niddm Hyperlipidemia Surgical History H/O excision of mass (06/15/22) Excision of Right Upper Extremity Skin Lesion(Right) - Yaya Tena, DO History of colon resection due to cancer, approx 3 yrs ago per pt History of cataract surgery bilat History of prostate biopsy History of lithotripsy History of AAA (abdominal aortic aneurysm) repair History of tooth extraction all teeth removed History of colonoscopy Family History Brother Family history of diabetes mellitus FHx: prostate cancer Dementia Sister Family history of diabetes mellitus Breast cancer Family/Other Family history of diabetes mellitus nieces/nephews Father Lung cancer Sister Myocardial infarction, Onset Age: 66 [place] happened week of 11/10/18 Other No family history of adverse response to anesthesia Denies family history of Ovarian cancer Prostate cancer Colorectal cancer Social History Smoking Status: Former smoker Tobacco Type: Cigarettes Age Started Using Tobacco: 19; Age Quit Using Tobacco: 54; packs per day: 2; Second Hand Exposure: No; Do You Dip or Chew Tobacco: No; Hx Alcohol Use: No Hx Substance Use: No Preferred Language: Icelandic Communication Ability: Effective Communication Ability Comment: DEAF LEFT EAR/GTZ RIGHT EAR-DOESN'T USUALLY WEAR Visual Impairment: No Limitations Hearing Ability: Hard of Hearing School Cook Required: No Beliefs That Will Affect Care: None marital status: Current Living Situation: Alone Current Living Situation Comment: lives alone current occupational status: retired Feels Safe at Home: Yes Childhood Exposure to Second-Hand Smoke: Yes Diet: regular caffeine: Yes during the past year weight has: remained stable Dental Care, Regularly: No Physical Activity Frequency: Daily Seatbelt Use: always Sunscreen Use: No Assistive Devices: Cane and Hearing Aid - Right Review of Systems Review of Systems: Unobtainable due to endotracheal tube Physical Exam Physical Exam: General: Elderly male, intubated, not sedated but unresponsive Vital Signs: Persistently tachycardic with a wide QRS noted on telemetry; blood pressure sustained with a mean arterial pressure in the 70s with norepinephrine and epinephrine gtt.; saturating 100% via ET tube HEENT: Pupils dilated, reactive to light OU and symmetric; corneal reflex was not assessed at this time; endotracheal tube in place without apparent trauma to the posterior oropharynx; OG tube in place draining violaceous/brown gastric secretions concerning for previous hemorrhage Neck: Midline trachea Pulmonary: Symmetric chest wall excursion with ventilation; lungs are relatively clear to auscultation bilaterally Cardiovascular: Tachycardic rate with regular rhythm with grade 2/6 systolic murmur best heard in the left second intercostal space parasternally; right radial pulse and bilateral posterior tibial pulse 2+ without notable lower extremity edema; extremities are cool to touch; capillary refill approximately 3 to 4 seconds in the upper and lower extremity nailbeds; left upper extremity arterial line is noted Gastrointestinal: Soft, protuberant; no involuntary guarding; bowel sounds throughout the abdomen are very high pitch and low-frequency; abdomen is resonant to percussion; there is no appreciable fluid wave with auscultation Genitourinary: Horowitz catheter is in place with opaque violaceous output with approximately 150 mL accumulated in the bag with continued output in the tubing; there is no apparent periurethral trauma nor is there noted trauma from Horowitz insertion and discussion with nursing staff Musculoskeletal: No appreciable trauma on general physical exam Neurologic: GCS unable to be calculated E1 V (NT) M1; there is no movement of the upper nor lower extremities with noxious stimuli the patient was noted to have paralytic administered during RSI, he has not received any additional sedating medications Skin: No notable skin trauma nor evidence of intra-abdominal trauma, ecchymoses, sites of infection nor injury Results & Data Results & Data Vital Signs (Past 12 Hours) Vital Signs Pulse Resp BP Pulse Ox FiO2 02/11/25 16:34 26 H 70 02/11/25 15:40 109 H 20 95 100 02/11/25 15:09 128 H 02/11/25 15:02 58 L 02/11/25 14:58 118/72 02/11/25 14:58 143 H 02/11/25 14:48 162 H Laboratory Results Leukocytosis of 24.62 with a neutrophilic predominance; initial he will and 18.7 downtrended to 15.0 after approximately 2 hours, platelet count 242,000 Presenting INR 1.7, PT 17.3, APTT 34, fibrinogen greater than 860, D-dimer 6690 Initial venous blood gas noted with pH less than 7, pCO2 78; subsequent ABG obtained after intubation with pH 6.99, pCO2 75, pO2 427, HCO3 18 Initial potassium 5.7, anion gap of 19, BUN 67, creatinine 5.70 serum glucose 162 Initial lactate 8.0 AST elevated 93 and total bilirubin 1.1 Initial troponin 577.1, no subsequent measures obtained since cardiac arrest Procalcitonin unmeasurable in excess of 100 Diagnostic Findings Portable chest films reviewed; endotracheal tube in appropriate position after adjustment, questionable early pneumonic process in the right lobe CT cervical spine, chest, head and brain, abdomen pelvis pending at this time Code Status & VTE Plan Code Status Maintain current interventions; if patient rearrests, then no further resuscitation attempts are to be made PG Care Time/CCT Total # of Minutes Spent Total Time Spent with Patient: Total time spent is greater than 50% in coordination of care (as documented) at patient's floor/unit and/or counseling patient: Coding Level of Care Code 97949 INT INP/OBS CARE 3/75MIN Diagnoses Cardiogenic shock R57.0 Septic shock A41.9; R65.21 Acute renal failure, unspecified acute renal failure type N17.9 Acute renal failure type: unspecified Bradycardic cardiac arrest R00.1; I46.2 Acute respiratory failure with hypoxia J96.01 Neutrophilic leukocytosis D72.828 Consumptive coagulopathy D65 Type 2 myocardial infarction due to shock R57.9; I21.A1 Acute gastrointestinal hemorrhage K92.2 Mixed acid base balance disorder E87.4 Hemorrhage of genitourinary tract R31.[address] Z97.8 Endotracheally intubated Z97.[address] Z95.828 Hyperkalemia E87.5 (3) Acute renal failure Acute renal failure type: unspecified Qualified Code(s): N17.9 - Acute kidney failure, unspecified
[2025-02-11] MEDS ORDERED: CARBOHYDRATES FOR HYPOGLYCEMIA PO PRN (18:02)
[2025-02-11] MEDS ORDERED: GLUCAGON FOR INJ 1 MG VIAL SQ PRN (18:02)
[2025-02-11] MEDS ORDERED: GLUCOSE 40% GEL 15 GM TUBE PO PRN (18:02)
[2025-02-11] MEDS ORDERED: PHARMACY GLYCEMIC MGMT CONSULT PRN (18:02)
[2025-02-11] MEDS ORDERED: DEXTROSE 50% 50 ML SYRINGE IV PRN (18:02)
[2025-02-11] MEDS ORDERED: GLUCOSE 10 TAB/TUBE PO PRN (18:02)
[2025-02-11] MEDS: STAT IV Infusion **Titration per Protocol STA (18:07)
[2025-02-11 18:57] LABS: Appearance Urine Turbid (Clear)
[2025-02-11 18:59] LABS: Epithelial Cell Urine 0-2 /hpf (0-2)
--- NOTE | 2025-02-11 19:02 | CT Scan Report ---
CT head without contrast History: Unresponsive Comparison: 04/18/2021 Technique: Using multidetector thin collimation helical acquisition technique, axial, coronal and sagittal CT images from the skull base to the vertex were obtained without intravenous contrast. Dose reduction techniques were achieved by using automatic exposure control and/or adjustment of mA and/or kV according to patient size and/or use of iterative reconstruction technique. Findings: No intracranial hemorrhage, mass-effect, or midline shift. The ventricles are proportionate to the cerebral sulci. The blackburn to white matter differentiation of the cerebral hemispheres is preserved. The basal cisterns are patent. There is moderate cerebral atrophy. Moderate, patchy low-attenuation changes in the white matter, most suggestive of sequelae of chronic small vessel ischemic disease. The visualized paranasal sinuses are clear. Mastoid air cells are clear. Impression: No acute intracranial pathology. Electronically signed by Nacho Gutiérrez 02-11-2025 7:02 PM
--- NOTE | 2025-02-11 19:08 | CT Scan Report ---
EXAMINATION: CT of the chest, abdomen and pelvis performed without the administration of IV contrast TECHNIQUE: Helical CT images from the lung apices through the symphysis pubis were obtained without contrast. Coronal and sagittal reformatted images were generated at a workstation for further assessment. Dose reduction techniques were achieved by using automatic exposure control and/or adjustment of mA and/or kV according to patient size and/or use of iterative reconstruction technique. COMPARISON: None HISTORY: Unresponsive FINDINGS: Lines and tubes: Endotracheal tube tip in the mid thoracic trachea. Mediastinum/Neck Base: No thyroid nodules. Central tracheobronchial tree is patent. Heart size is enlarged. No pericardial effusion. Normal thoracic vasculature. No thoracic lymphadenopathy. Prominent aortic valve calcification. Mild coronary calcification. Lungs: There are trace bilateral pleural effusions. Scattered patchy irregular nodular opacities are seen throughout the lung bases in the posterior right upper lobe. There is severe emphysema. Liver: No suspicious liver lesions. Gallbladder: Cholecystectomy Spleen: Normal size. Pancreas: No suspicious pancreatic lesions. The pancreatic duct is not dilated. Adrenal glands: No adrenal nodules. Kidneys: No hydronephrosis or obstructing renal stones. Bladder / Pelvic organs: The urinary bladder wall is thickened. The bladder is incompletely distended with a Horowitz catheter in place. There is gross air in the urinary bladder, which may be related to catheterization. However there are also foci of air circumferentially extending along the mucosal surface of the urinary bladder wall internally, and foci inside the wall seen. There is free air noted above the urinary bladder, which appears to be in the extraperitoneal space surrounded by inflammatory fat stranding.. Bowel: No bowel obstruction. No abnormal bowel wall thickening. No evidence for appendicitis. Lymph nodes: No retroperitoneal, mesenteric, or pelvic lymphadenopathy. Peritoneum / Retroperitoneum: No free fluid or air within the abdomen. Vessels: No infrarenal aortic aneurysm. Aortoiliac stent in place. Right femoral central line tip at the common iliac vein. Bones and soft tissues: Degenerative changes of the spine. No acute osseous normality. IMPRESSION: 1. Patchy opacities throughout the lower lobes and posterior right upper lobe, are favored infectious. 2. Foci of air are seen circumferentially about the mucosal surface of the urinary bladder, as well as within the wall. Patchy foci of free air also appear to be seen outside the urinary bladder associated with fat stranding, and are confined to the extraperitoneal space, and are likely urinary bladder in origin. A bowel perforation seems less likely. The findings are suspicious for emphysematous cystitis. Electronically signed by Nacho Gutiérrez 02-11-2025 7:08 PM
--- NOTE | 2025-02-11 19:09 | CT Scan Report ---
CT cervical spine without IV contrast History: Unresponsive Comparison: None Technique: Using multidetector thin collimation helical acquisition technique, axial, coronal and sagittal CT images through the cervical spine were obtained without intravenous contrast. Dose reduction techniques were achieved by using automatic exposure control and/or adjustment of mA and/or kV according to patient size and/or use of iterative reconstruction technique. Findings: The cervical vertebrae are normally aligned. Normal cervical lordosis. No acute fracture or subluxation. No prevertebral edema. Degenerative facet changes are seen, left greater than right. Mild multilevel uncovertebral arthropathy. No abnormality of the paraspinous soft tissues. Impression: No acute fracture or traumatic subluxation. Electronically signed by Nacho Gutiérrez 02-11-2025 7:09 PM
[2025-02-11] MEDS ORDERED: STAT IV/IM STA (19:13)
[2025-02-11] MEDS ORDERED: VANCOMYCIN CONSULT ACTIVE PRN (19:13)
[2025-02-11 19:23] LABS: iSTAT Art Bld Gas Base Excess -11.0 mmol/L (-9-1.8); iSTAT Art Bld Gas pCO2 Correct 46 mmHg (35-46); iSTAT Art Bld Gas pH Corrected 7.174 (7.35-7.45); iSTAT Arterial Blood Gas pO2 C 96
[2025-02-11] MEDS ORDERED: ALBUTEROL 0.083% NEBU SOLN 3 ML VIAL NEB PRN (19:40)
[2025-02-11] MEDS: SODIUM BICARBONATE 8.4% 150 MEQ in WATER, STERILE 1,000 ML IV SCH (19:44)
[2025-02-11] MEDS: VANCOMYCIN HCL 1,500 MG in SODIUM CHLORIDE 0.9% 500 ML IV ONE (20:06)
[2025-02-11 20:07] LABS: Alanine Aminotransferase 36 U/L (7-52); Albumin Globulin Ratio 0.7 (0.9-2); Albumin Level 2.5 gm/dl (3.4-5.0); Alkaline Phosphatase 75 U/L (34-104); Anion Gap 20 (3-11); Bilirubin,Total 1.4 mg/dl (0.2-1.0); Blood Urea Nitrogen 60 mg/dl (6-23); Calcium 8.6 mg/dl (8.6-10.3); Carbon Dioxide 17 mmol/L (21-32); Chloride 103 mmol/L (98-107); Globulin 3.7 gm/dl (2.5-4.0); Glucose 288 mg/dl (70-99(Fasting)); Potassium 4.2 mmol/L (3.5-5.1); Sodium 140 mmol/L (136-145); Total Protein 6.2 gm/dl (6.0-8.3)
[2025-02-11 20:10] LABS: INR 1.4 (0.9-1.1); Prothrombin Time 15.0 Seconds (9.0-12.0)
[2025-02-11 20:14] LABS: Fibrinogen 814 mg/dl (184-400)
[2025-02-11 20:15] LABS: Hematocrit (blood only) 47.5 % (42.0-52.0); Hemoglobin 14.8 g/dl (14.0-18.0); Immature Granulocytes # (auto) 0.20 K/uL (0.01-0.20); Immature Granulocytes % (auto) 1.0 %; Mean Corpuscular Hemoglobin 30.0 pg (25.0-34.0); Mean Corpuscular Volume 96.3 fL (80.0-100.0); Platelet Count 199 K/uL (130-400); Polychromasia 1+; RDW Standard Deviation 53.6 fL (36.4-46.3); Red Blood Count 4.93 M/uL (4.70-6.10); Toxic Vacuolation 1+; White Blood Count 19.72 K/ul (4.8-10.8)
[2025-02-11 20:21] LABS: Creatine Kinase 7822 U/L (30-223)
[2025-02-11 21:43] LABS: Base Excess VBG -6.4 mEq/L; HCO3 VBG 19 mmol/L; Oxygen Saturation VBG 99.5 %; PCO2 VBG 37 mmHg (38-50); PO2 VBG 90 mmHg; pH VBG 7.32 (7.36-7.41)
[2025-02-11] MEDS: Patient's HEIGHT &/or WEIGHT Needed STA (21:55)
[2025-02-11] MEDS: LANTUS PER UNIT CHARGE SC ONE (22:15)
[2025-02-11] MEDS: INSULIN ASPART PER UNIT CHARGE SC ONE (22:29)
[2025-02-12] MEDS ORDERED: LANTUS PER UNIT CHARGE SC SCH
[2025-02-12 00:38] LABS: Hematocrit (blood only) 44.2 % (42.0-52.0); Hemoglobin 14.3 g/dl (14.0-18.0); Mean Corpuscular Hemoglobin 30.2 pg (25.0-34.0); Mean Corpuscular Volume 93.2 fL (80.0-100.0); Platelet Count 164 K/uL (130-400); RDW Standard Deviation 52.1 fL (36.4-46.3); Red Blood Count 4.74 M/uL (4.70-6.10); White Blood Count 12.26 K/ul (4.8-10.8)
[2025-02-12 00:59] LABS: Alanine Aminotransferase 35.0 U/L (7-52); Albumin Globulin Ratio 0.8 (0.9-2); Albumin Level 2.5 gm/dl (3.4-5.0); Alkaline Phosphatase 66.0 U/L (34-104); Anion Gap 15.0 (3-11); Bilirubin,Total 1.3 mg/dl (0.2-1.0); Blood Urea Nitrogen 65.0 mg/dl (6-23); Calcium 7.7 mg/dl (8.6-10.3); Carbon Dioxide 23.0 mmol/L (21-32); Chloride 100.0 mmol/L (98-107); Creatinine Clr Calc Pharmacy 12.9 ml/min; Globulin 3.0 gm/dl (2.5-4.0); Glucose 262.0 mg/dl (70-99(Fasting)); Potassium 4.1 mmol/L (3.5-5.1); Sodium 138.0 mmol/L (136-145); Total Protein 5.5 gm/dl (6.0-8.3)
[2025-02-12 01:16] LABS: Immature Granulocytes # (auto) 0.04 K/uL (0.01-0.20); Immature Granulocytes % (auto) 0.3 %; Polychromasia 1+; Toxic Vacuolation 1+
[2025-02-12] MEDS: INSULIN ASPART PER UNIT CHARGE SC SCH (01:36)
[2025-02-12] MEDS: PLASMA-LYTE A 1,000 ML IV SCH (02:17)
[2025-02-12] MEDS: ACETAMINOPHEN 1,000 MG/100 ML VIAL IV PRN (02:18)
[2025-02-12] MEDS ORDERED: STAT IV Infusion **Titration per Protocol STA ×2 (02:55→19:58)
[2025-02-12] MEDS: PLASMA-LYTE A 500 ML IV ONE (03:14)
[2025-02-12] MEDS: VASOPRESSIN 20 UNITS in SODIUM CHLORIDE 0.9% 100 ML IV SCH (03:17)
[2025-02-12] MEDS: CEFEPIME 1000MG 1,000 MG/10 ML SYR IV SCH (03:19)
[2025-02-12 04:00] LABS: iSTAT Art Bld Gas Base Excess -2.0 mmol/L (-9-1.8); iSTAT Art Bld Gas pCO2 Correct 34 mmHg (35-46); iSTAT Art Bld Gas pH Corrected 7.426 (7.35-7.45); iSTAT Arterial Blood Gas pO2 C 91
[2025-02-12 04:41] LABS: Hematocrit (blood only) 41.6 % (42.0-52.0); Hemoglobin 13.7 g/dl (14.0-18.0); Mean Corpuscular Hemoglobin 30.4 pg (25.0-34.0); Mean Corpuscular Volume 92.2 fL (80.0-100.0); Platelet Count 163 K/uL (130-400); RDW Standard Deviation 51.8 fL (36.4-46.3); Red Blood Count 4.51 M/uL (4.70-6.10); White Blood Count 13.14 K/ul (4.8-10.8)
[2025-02-12 04:54] LABS: Magnesium 1.9 mg/dl (1.7-2.4)
[2025-02-12 05:04] LABS: INR 1.6 (0.9-1.1); Prothrombin Time 16.2 Seconds (9.0-12.0)
[2025-02-12 05:25] LABS: Dohle Bodies 1+; Immature Granulocytes # (auto) 0.06 K/uL (0.01-0.20); Immature Granulocytes % (auto) 0.5 %; Polychromasia 1+; Toxic Vacuolation 1+
--- NOTE | 2025-02-12 07:06 | Critical Care Progress Note ---
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 Waking up a little bit. Opens eyes to voice. Restless in bed with some myoclonic jerking. Overnight a EEG was ordered, results pending. Continue fentanyl pushes as needed for analgesia/sedation. Cardiac: Status post cardiac arrest with bradycardia and ventricular arrhythmia on 02/11/2025, successful ROSC with 1 round CPR. Multiple pressors in place, norepinephrine and vasopressin. Has a right groin central venous catheter and left radial arterial line. Continue to titrate vasopressors, goal MAP 65 mmHg. Will need to trend lactic acid. Coming down slightly. Will need official echo, [id number] echo showing mildly dilated RV/RA, grossly preserved LVEF. Echo is pending. Troponins are elevated, this is status post cardiac arrest however, EKG without acute changes, no need to trend at this time. Respiratory: Hypoxic hypercapnic respiratory failure. CT chest without contrast showing changes multifocal pneumonia. Extensive emphysema appreciated. On mechanical ventilation, intubated 02/11/2025. We will need a culture from the ET tube. Viral PCR negative. MRSA nares negative. Continue mechanical ventilation, tidal volume 430, rate 24, PEEP 8, FiO2 currently 60% with a saturation of 93%. Titrate FiO2 down to a goal saturation of 90%. GI: Concern for upper and lower GI bleed. Patient does have a history of GI bleed. INR is elevated. AST is elevated. Family denies any history of alcohol use. Continue PPI infusion. Keep NG tube to low intermittent suction. Not overtly having upper or lower GI bleed since admission. Will continue to monitor and consider GI consultation. Monitor hemoglobin every 6 hours. RENAL/LYTES: Patient is in GILLIAN. Has mild hyperkalemia. Severe lactic acidosis and metabolic acidosis. Required bicarb infusion, now on Plasma-Lyte. CK is elevated, and rhabdo. Will need repeat CK in the morning. Keep Horowitz catheter in place, monitor strict I's and O's, urine output about 37 cc an hour overnight. Monitor and replace/correct electrolytes. Nephrology is consulted. Urology is consulted. : Horowitz catheter was initially placed with only hemorrhagic fluid return. Was replaced without change in output from Horowitz. History of radical prostatectomy. CT abdomen and pelvis shows air circumferentially about the mucosal surface of the urinary bladder as well as within the wall of the bladder and air outside the bladder associated with fat stranding. Findings are concerning for emphysematous cystitis. Urology has been consulted. Requiring frequent flushing to clear blood clots from Horowitz catheter. May require CBI however will hold off given CT findings and defer to urology expertise. ENDO: Monitor glucose. History of diabetes with recent A1c of 6.1%. HEME: Hemoglobin acceptable at this time, did have lower GI bleeding appreciated by medics and coffee-ground contents suctioned after NG tube was placed. Will need to monitor hemoglobin closely. Transfuse for hemoglobin less than 7, allow for higher transfusion limit if evidence of rapid bleeding and shock. Cell counts are down however this is likely delusional in setting of massive volume resuscitation and low urine output. Is having bleeding from the Horowitz catheter for which urology has been consulted. INR is slightly elevated, given lack of hemorrhage we will continue to monitor, no need to treat at this time. ID: Will need blood cultures, urine culture and sputum culture. Procalcitonin is very elevated. Will need repeated in the morning. Likely urologic infection in origin given CT findings in addition to pneumonia as seen on CT imaging. Viral PCR is negative. MRSA nares is negative. On vancomycin and cefepime. Can consider de-escalating to cefepime only as long as blood cultures remain negative after 24 hours. Feeding: Keep n.p.o. Fluids: Plasma-Lyte Analgesia: Fentanyl pushes as needed. Activity: Bedrest Thromboprophylaxis: Place SCDs, avoid chemical prophylaxis in setting of active bleeding. Ulcer prophylaxis: On PPI drip Glycemic control: Monitor glucose. Indwelling catheters: Right groin central venous catheter placed emergently in the ER 02/11/2025, left radial A-line placed emergently in the emergency department 02/11/2025, ET tube, Horowitz catheter. Plan: Patient remain in the ICU. Critically ill with multiorgan dysfunction. Shock state, likely septic in setting of pneumonia as well as possible urologic infection. There is also concern for emphysematous cystitis versus bladder perforation. Urology has been consulted. Family situation seems complicated. From the initial story per the patient's twin brother, the patient was estranged from his for many years and they were not aware that they had been in touch at all. The reportedly is now the one who had called 911 because she had not heard from the patient and when she spoke to the RN last night she says that they talk on the phone very frequently. Next of kin legally should be the , will need to reach out to her today. I have personally spent 45 minutes of critical care time in the direct management of this patient. This is a life/limb threatening event. This includes time spent evaluating patient, direct bedside care, chart review, placing orders, interpretation of diagnostic studies, discussion with consultants, patient, and family members, as well as other required patient management activities. This time is exclusive of all separately billable procedures, and teaching time and separate from and in addition to any other critical care service time. Admission and Anticipated Discharge Date Admission Date: February 11, 2025 Subjective Past 24-hour events: Admitted to the medical ICU from the ER overnight. Status postcardiac arrest. Respiratory failure requiring mechanical ventilation. CT imaging showing pneumonia and emphysematous cystitis. Poor urine output. Remains in shock. Started waking up a bit last night. Opens eyes to voice. Some myoclonic jerks are present. Was started on fentanyl pushes. Rounding: On mechanical ventilation. Opens eyes to voice. Restless in bed. Has not received fentanyl within the hour. Not following commands. Pupils are equal and reactive. Remains on vasopressor support with norepinephrine and vaso. Urine output is about 37 cc an hour, lots of clots present. Requires frequent flushing. Mild phlegm from ET tube. Intake: 6692 mL Output: 450 mL Net: +6242 mL Mechanical ventilation: Volume AC, tidal volume 430, respiratory rate 24, PEEP 8, FiO2 60%. Feeding: IV infusions: Vaso, levo, pantoprazole, amiodarone, Plasma-Lyte Indwelling catheters: Horowitz catheter, right groin CVC, left radial A-line, ET tube, OG tube. Laboratory: CBC: WBC 13, hemoglobin 13, platelets 163 Chemistry: Sodium 136, potassium 4.2, chloride 100, bicarb 23, BUN 65, creatinine 4.95, glucose 262 AB.4 Review of Systems Review of Systems: No able to be obtained. Physical Exam Physical Exam: Physical examination: General: Disheveled, intubated, frail-appearing. HEENT: Normocephalic, atraumatic. Extraocular movements intact. Sclera are nonicteric. No JVD appreciated. Skin: Warm and dry. No rashes appreciated. No jaundice appreciated. Cardiovascular: Sinus tachycardia, heart rate 117. Lungs: Coarse mechanical breath sounds, no wheezing appreciated. On mechanical ventilation with saturation of 93% on 60% FiO2 and a PEEP of 8. Abdomen: Flat. NG tube is in place. Guarding and tenderness to palpation of lower quadrants of abdomen. Musculoskeletal: Normal muscle mass and tone. No gross joint deformity abnormalities. No effusions appreciated. Neurologic: Restless in bed, some myoclonic jerking, opens eyes to voice. Moving all extremities. : Horowitz catheter is in place, Dark red blood visualized in catheter. Clots present. Results & Data Results & Data Vital Signs (Past 12 Hours) Vital Signs Temp Pulse Resp BP Pulse Ox O2 Del Method FiO2 02/12/25 05:36 37.5 C 99 H 24 95 Mechanical Vent 70 02/12/25 05:19 108/44 L 02/12/25 05:15 37.6 C H 101 H 24 95 Mechanical Vent 70 02/12/25 04:54 37.8 C H 99 H 25 H 95 Mechanical Vent 70 02/12/25 04:15 37.9 C H 104 H 24 98 Mechanical Vent 70 02/12/25 04:00 38.0 C H 104 H 24 98 Mechanical Vent 70 02/12/25 04:00 70 02/12/25 03:48 38.1 C H 100 H 28 H 97 Mechanical Vent 70 02/12/25 03:46 24 70 02/12/25 03:33 38.1 C H 105 H 28 H 99 Mechanical Vent 70 02/12/25 03:30 133 H 28 H 99 70 02/12/25 03:00 38.2 C H 108 H 25 H 94 Mechanical Vent 70 02/12/25 03:00 82/62 L 02/12/25 02:48 38.2 C H 107 H 25 H 95 Mechanical Vent 70 02/12/25 02:45 88/61 L 02/12/25 02:32 38.3 C H 108 H 28 H 97 Mechanical Vent 70 02/12/25 02:26 38.3 C H 108 H 28 H 97 Mechanical Vent 70 02/12/25 02:11 38.3 C H 109 H 28 H 96 Mechanical Vent 70 02/12/25 02:02 38.3 C H 109 H 28 H 98 Mechanical Vent 70 02/12/25 02:00 93/65 L 02/12/25 01:53 38.3 C H 112 H 28 H 95 Mechanical Vent 02/12/25 01:47 38.3 C H 111 H 28 H 96 Mechanical Vent 02/12/25 01:12 38.3 C H 112 H 28 H 94 Mechanical Vent 02/12/25 01:03 38.3 C H 111 H 28 H 95 Mechanical Vent 70 02/12/25 01:00 100/66 02/12/25 00:42 38.3 C H 109 H 28 H 94 Mechanical Vent 02/12/25 00:39 38.3 C H 108 H 28 H 94 Mechanical Vent 02/12/25 00:21 38.2 C H 110 H 28 H 95 Mechanical Vent 02/12/25 00:12 38.2 C H 111 H 28 H 95 Mechanical Vent 70 02/12/25 00:03 38.1 C H 108 H 28 H 96 Mechanical Vent 70 02/12/25 00:00 70 02/12/25 00:00 107 H 02/12/25 00:00 95/69 L 02/11/25 23:59 107 H 02/11/25 23:48 38.0 C H 109 H 28 H 95 Mechanical Vent 70 02/11/25 23:42 38.0 C H 108 H 28 H 96 Mechanical Vent 70 02/11/25 23:33 37.9 C H 107 H 28 H 96 Mechanical Vent 70 02/11/25 23:03 106 H 27 H 96 70 02/11/25 22:33 37.5 C 109 H 28 H 96 Mechanical Vent 70 02/11/25 22:12 37.3 C 108 H 28 H 96 Mechanical Vent 70 02/11/25 22:00 106/73 02/11/25 22:00 37.1 C 107 H 28 H 96 Mechanical Vent 70 02/11/25 21:42 36.9 C 105 H 28 H 95 Mechanical Vent 70 02/11/25 21:39 36.8 C 105 H 28 H 95 Mechanical Vent 70 02/11/25 21:12 36.6 C 100 H 28 H 95 Mechanical Vent 70 02/11/25 21:03 36.5 C 100 H 28 H 96 Mechanical Vent 70 02/11/25 21:00 99/76 L 02/11/25 20:54 36.4 C L 101 H 28 H 96 Mechanical Vent 70 02/11/25 20:51 36.4 C L 101 H 28 H 96 Mechanical Vent 70 02/11/25 20:48 36.4 C L 101 H 28 H 95 Mechanical Vent 70 02/11/25 20:30 36.2 C L 102 H 28 H 97 Mechanical Vent 70 02/11/25 20:00 Mechanical Vent 70 02/11/25 20:00 36.2 C L 02/11/25 20:00 70 02/11/25 19:13 36.2 C L 02/11/25 19:13 110 H 02/11/25 19:06 36.0 C L 111 H 26 H 96 02/11/25 19:06 126/87 02/11/25 19:00 112 H 26 H 02/11/25 18:57 112 H 29 H 97 70 Coding Level of Care Code 15767 SUB INP/OBS CARE 3/50MIN Diagnoses Bradycardic cardiac arrest R00.1; I46.2 Respiratory failure J96.90 Acute GI bleeding K92.2 GILLIAN (acute kidney injury) N17.9 Hyperkalemia E87.5 AMS (altered mental status) R41.82 Shock R57.9 Ventricular arrhythmia I49.9 Lactic acid acidosis E87.20 Rhabdomyolysis M62.82 Emphysematous cystitis N30.80
[2025-02-12] MEDS: INFLUENZA VACC TS2025-26(65y+)/PF (IIV3) 0.5mL Syr IM ONE (07:14)
--- NOTE | 2025-02-12 07:48 | Hospitalist Progress Note ---
Date of Service February 12, 2025 Assessment & Plan (1) Septic shock: (2) Emphysematous cystitis: (3) Hemorrhage of genitourinary tract: (4) Horowitz catheter in place: (5) Acute respiratory failure with hypoxia: (6) Community acquired pneumonia: (7) Cardiogenic shock: (8) Bradycardic cardiac arrest: (9) Type 2 myocardial infarction due to shock: (10) Acute renal failure: (11) Rhabdomyolysis: (12) Neutrophilic leukocytosis: (13) Consumptive coagulopathy: (14) Endotracheally intubated: (15) Arterial line in place: Plan In summary this is a 74-year-old critically ill male who was brought to the [facility] after being found unresponsive at home; last known well was 02/08 #Primarily septic shock with subsequent cardiogenic shock // type II myocardial infarction // acute renal failure, likely prerenal // Consumptive coagulopathy On presentation, the patient was critically ill and then deteriorated further to a cardiac arrest requiring ACLS protocol; ROSC was achieved in the intensive care unit was contacted for evaluation; at this time his primary cause of shock appears to be septic given his found emphysematous cystitis discussed further below; no evidence of gastrointestinal pathology; given the patient's abnormal neurologic exam, an EEG was ordered overnight with results pending; would recommend we obtain an MRI as well once the patient is stable for such to rule out anoxic injury and/or additional ischemic pathology - Continue Cefepime 2 g IV twice daily for empiric antibiotic coverage - Continue Vancomycin with Pharmacy consultation to assist with dose - Continue to follow daily CBC with manual differential and CMP Intensive care consulted; will continue to primarily manage the patient's hemodynamic status Nephrology consulted for recommendations and anticipatory guidance given the patient's degree of renal failure; improving this morning, no indication for acute REGISTERED OCCUPATIONAL THERAPIST at this time; the patient's creatinine elevation may also be consequential of their associated nontraumatic rhabdomyolysis, rather than exclusively indicative of their GFR Patient's troponin is elevated, inevitably will remain elevated after chest compressions and resuscitation attempts; pending TTE #Emphysematous cystitis // Hemorrhage of genitourinary tract // Horowitz catheter in place Found on imaging and consistent with physical exam; continues with antibiotic therapy; Urine culture ordered but unsure if it will be able to yield growth given the density of hemorrhage - Maintain Horowitz catheter - Urology consulted #Abnormal CT chest // Questionable CAP versus aspiration pneumonitis versus aspiration pneumonia Patient required ET intubation on presentation due to progressive decline and associated arrest; initial plain films revealed scattered inflammatory changes, and CT chest shows similar inflammatory change in the basilar segments bilaterally; on exam, the patient's lungs are quite unremarkable for abnormal findings, suggesting more likely a pneumonitis pathology; nonetheless the patient's antibiotic coverage for their emphysematous cystitis is adequate for the noted bacterial pathologies on the differential - Remains intubated and mechanically ventilated; anticipate potential SBT this morning #Initial suspected gastrointestinal hemorrhage Serial assessment overnight and again this morning, there has been no evidence of gastrointestinal hemorrhage; suspect the initial evaluation by EMS was evidence of genitourinary hemorrhage with dried blood surrounding the rectum - Deescalated pantoprazole to 40 mg IV twice daily #Type II diabetes mellitus with hyperglycemia, not requiring insulin therapy Most recent A1c of 6.1%; given their critically ill state, goal to maintain serum glucose less than 180 - Pharmacy consulted for assistance with glycemic management Admission and Anticipated Discharge Date Admission Date: February 11, 2025 Subjective Mr. Bailey is a 74-year-old male whose active medical conditions include type 2 diabetes mellitus with peripheral angiopathy, vascular insufficiency, benign prostatic hyperplasia with LUTS, chronic obstructive pulmonary disease, atrial fibrillation among other chronic medical conditions who was brought to the [facility] by EMS after being found unresponsive on the morning of 02/11. At the time my evaluation the patient has been intubated, not currently on any sedation and is unable to participate in any form of history/review of systems. The patient's family is available at bedside for a limited history; they describe that they last heard from the patient via telephone on 02/08, he seemed to be in his usual state of health. They had not heard from the patient over the weekend, which was not initially concerning however again did not hear from him nor was he responding to telephone calls in the morning of 02/11 which led to a wellness check to be called at which time he was found unresponsive. When he was found, he was noted to have a large amount of rectal bleeding, obtunded, unresponsive. En route to the hospital he was provided 2 units of PRBC via IO in the left tibia. At that time he was responsive to painful stimuli. There is no noted physical trauma on his initial evaluation. While the patient was in the emergency department, he had a cardiac arrest and ACLS was initiated as the patient's CODE STATUS was otherwise unknown. The patient was subsequently intubated as well, without complication. He did require 2 shocks and multiple rounds of epinephrine during his resuscitation. ROSC was achieved. Review of Systems Review of Systems: Unobtainable due to endotracheal tube Physical Exam Physical Exam: General: Elderly male, intubated, appears uncomfortable in bed with episodes of apparent discomfort Vital Signs: Persistently tachycardic with a wide QRS noted on telemetry; hypertensive with norepinephrine and vasopressin gtt.; saturating 100% via ET tube HEENT: Pupils dilated, reactive to light OU and symmetric; unable to follow commands but with gross extraocular motion appreciable; corneal reflex was not assessed at this time; endotracheal tube in place without apparent trauma to the posterior oropharynx; OG tube in place draining brown gastric secretions without evidence of blood products Neck: Midline trachea Pulmonary: Symmetric chest wall excursion with ventilation; lungs are relatively clear to auscultation bilaterally Cardiovascular: Tachycardic rate with regular rhythm with grade 2/6 systolic murmur best heard in the left second intercostal space parasternally; right radial pulse and bilateral posterior tibial pulse 2+ without notable lower extremity edema; extremities are cool to touch; capillary refill approximately 3 to 4 seconds in the upper and lower extremity nailbeds; left upper extremity arterial line and right femoral venous CVC present Gastrointestinal: Soft, protuberant; voluntary guarding, tenderness to palpation primarily in the lower quadrants and suprapubically, including with percussion; bowel sounds throughout the abdomen are very high pitch and low-frequency; abdomen is resonant to percussion; there is no appreciable fluid wave with auscultation Genitourinary: Horowitz catheter is in place with opaque violaceous output with approximately 75 mL accumulated in the bag with continued output in the tubing; there is no apparent periurethral trauma nor is there noted trauma from Horowitz insertion and discussion with nursing staff Musculoskeletal: No appreciable trauma on general physical exam Neurologic: not able to follow commands; high frequency low amplitude tremulousness of the bilateral upper and lower extremities; intermittent pu rposeful movement, especially with abdominal palpation he attempts to prevent the provider's exam Skin: No notable skin trauma nor evidence of intra-abdominal trauma, ecchymoses, sites of infection nor injury Results & Data Results & Data Vital Signs (Past 12 Hours) Vital Signs Temp Pulse Resp BP Pulse Ox O2 Del Method FiO2 02/12/25 07:09 37.1 C 95 H 24 94 02/12/25 07:01 104/89 02/12/25 05:36 37.5 C 99 H 24 95 Mechanical Vent 70 02/12/25 05:19 108/44 L 02/12/25 05:15 37.6 C H 101 H 24 95 Mechanical Vent 70 02/12/25 04:54 37.8 C H 99 H 25 H 95 Mechanical Vent 70 02/12/25 04:15 37.9 C H 104 H 24 98 Mechanical Vent 70 02/12/25 04:00 38.0 C H 104 H 24 98 Mechanical Vent 70 02/12/25 04:00 70 02/12/25 03:48 38.1 C H 100 H 28 H 97 Mechanical Vent 70 02/12/25 03:46 24 70 02/12/25 03:33 38.1 C H 105 H 28 H 99 Mechanical Vent 70 02/12/25 03:30 133 H 28 H 99 70 02/12/25 03:00 38.2 C H 108 H 25 H 94 Mechanical Vent 70 02/12/25 03:00 82/62 L 02/12/25 02:48 38.2 C H 107 H 25 H 95 Mechanical Vent 70 02/12/25 02:45 88/61 L 02/12/25 02:32 38.3 C H 108 H 28 H 97 Mechanical Vent 70 02/12/25 02:26 38.3 C H 108 H 28 H 97 Mechanical Vent 70 02/12/25 02:11 38.3 C H 109 H 28 H 96 Mechanical Vent 70 02/12/25 02:02 38.3 C H 109 H 28 H 98 Mechanical Vent 70 02/12/25 02:00 93/65 L 02/12/25 01:53 38.3 C H 112 H 28 H 95 Mechanical Vent 70 02/12/25 01:47 38.3 C H 111 H 28 H 96 Mechanical Vent 70 02/12/25 01:12 38.3 C H 112 H 28 H 94 Mechanical Vent 70 02/12/25 01:03 38.3 C H 111 H 28 H 95 Mechanical Vent 70 02/12/25 01:00 100/66 02/12/25 00:42 38.3 C H 109 H 28 H 94 Mechanical Vent 70 02/12/25 00:39 38.3 C H 108 H 28 H 94 Mechanical Vent 70 02/12/25 00:21 38.2 C H 110 H 28 H 95 Mechanical Vent 70 02/12/25 00:12 38.2 C H 111 H 28 H 95 Mechanical Vent 70 02/12/25 00:03 38.1 C H 108 H 28 H 96 Mechanical Vent 70 02/12/25 00:00 70 02/12/25 00:00 107 H 02/12/25 00:00 95/69 L 02/11/25 23:59 107 H 02/11/25 23:48 38.0 C H 109 H 28 H 95 Mechanical Vent 70 02/11/25 23:42 38.0 C H 108 H 28 H 96 Mechanical Vent 70 02/11/25 23:33 37.9 C H 107 H 28 H 96 Mechanical Vent 70 02/11/25 23:03 106 H 27 H 96 70 02/11/25 22:33 37.5 C 109 H 28 H 96 Mechanical Vent 70 02/11/25 22:12 37.3 C 108 H 28 H 96 Mechanical Vent 70 02/11/25 22:00 106/73 02/11/25 22:00 37.1 C 107 H 28 H 96 Mechanical Vent 70 02/11/25 21:42 36.9 C 105 H 28 H 95 Mechanical Vent 70 02/11/25 21:39 36.8 C 105 H 28 H 95 Mechanical Vent 70 02/11/25 21:12 36.6 C 100 H 28 H 95 Mechanical Vent 70 02/11/25 21:03 36.5 C 100 H 28 H 96 Mechanical Vent 70 02/11/25 21:00 99/76 L 02/11/25 20:54 36.4 C L 101 H 28 H 96 Mechanical Vent 70 02/11/25 20:51 36.4 C L 101 H 28 H 96 Mechanical Vent 70 02/11/25 20:48 36.4 C L 101 H 28 H 95 Mechanical Vent 70 02/11/25 20:30 36.2 C L 102 H 28 H 97 Mechanical Vent 70 02/11/25 20:00 Mechanical Vent 70 02/11/25 20:00 36.2 C L 02/11/25 20:00 70 Laboratory Results Leukocytosis down trending from 19.72 to 13.14 with neutrophilic predominance Remains coagulopathic with PT 16.2, INR 1.6 ABG 7.44 / 33 / 22 Creatinine downtrending 4.65, remains with anion gap of 15; remaining chemistries unremarkable Progressively increasing AST most recently [address] images reviewed; noted to have emphysematous changes to the bladder, unclear if there is perforation; bilateral posterior lobe pulmonary infiltrates without clear consolidation PG Care Time/CCT Total # of Minutes Spent Total Time Spent with Patient: Total time spent is greater than 50% in coordination of care (as documented) at patient's floor/unit and/or counseling patient: Coding Level of Care Code 86843 SUB INP/OBS CARE 3/50MIN Diagnoses Septic shock A41.9; R65.21 Emphysematous cystitis N30.80 Hemorrhage of genitourinary tract R31.[address] Z97.8 Acute respiratory failure with hypoxia J96.01 Community acquired pneumonia, unspecified laterality J18.9 Laterality: unspecified laterality Cardiogenic shock R57.0 Bradycardic cardiac arrest R00.1; I46.2 Type 2 myocardial infarction due to shock R57.9; I21.A1 Acute renal failure, unspecified acute renal failure type N17.9 Acute renal failure type: unspecified Non-traumatic rhabdomyolysis M62.82 Rhabdomyolysis type: non-traumatic Neutrophilic leukocytosis D72.828 Consumptive coagulopathy D65 Endotracheally intubated Z97.[address] Z95.828 (6) Community acquired pneumonia Laterality: unspecified laterality Qualified Code(s): J18.9 - Pneumonia, unspecified organism (10) Acute renal failure Acute renal failure type: unspecified Qualified Code(s): N17.9 - Acute kidney failure, unspecified (11) Rhabdomyolysis Rhabdomyolysis type: non-traumatic Qualified Code(s): M62.82 - Rhabdomyolysis
--- NOTE | 2025-02-12 08:32 | XRay Report ---
EXAM: XR chest 1V portable CLINICAL HISTORY: eval tubes/lines/lungfields. TECHNIQUE: An X-ray image of the chest was obtained in the AP projection. COMPARISON: CT dated 02/11/2025. FINDINGS: An endotracheal tube is in situ, 3.2 cm above the janie. A nasogastric tube traverses the left side of the diaphragm and is in situ. Pulmonary Parenchyma: Bilateral pulmonary opacities are noted, more conspicuous and marked in the right lung, with a few ill-defined opacities in the left mid and lower zones. These findings may be due to an inflammatory or infectious process. Clinical and laboratory correlation is suggested. No evidence of pleural effusion or pleural thickening is seen. Heart and Mediastinum: The heart size and shape are normal. No mediastinal widening or masses are present. No hilar or mediastinal lymphadenopathy is identified. Bony Thorax: Old healed fractures are seen in the left 5th, 6th, and 7th posterior ribs. No acute fracture or deformity is seen. Soft Tissues: The soft tissues overlying the chest wall are unremarkable. IMPRESSION: 1. The endotracheal tube is in situ, 3.2 cm above the janie. 2. Nasogastric tube traverses the left side of the hemidiaphragm and is in situ. 3. Bilateral pulmonary opacities are more conspicuous and marked in the right lung, with a few ill-defined opacities in the left mid and lower zones. These findings may be due to an inflammatory or infectious process. 4. Clinical and laboratory correlation is suggested. 5. Compared with the CT dated 02/11/2025, no interval changes are noted. Electronically signed by Tomasz Oneill 02-12-2025 08:32 AM
--- NOTE | 2025-02-12 08:59 | Nephrology Consultation ---
Date of Consultation February 12, 2025 Assessment & Plan (1) GILLIAN (acute kidney injury): Urine output improving. Horowitz draining gross hematuria. Creatinine slightly improved 5.7-->4.95 mg/dL. GILLIAN consistent with dehydration and hemodynamically mediated ATN. Electrolytes and volume status are acceptable. Metabolic acidosis improving with supportive care. There is no emergent indication for JDE DEVELOPER at this time. Empagliflozin, metformin, lisinopril, and diuretics have been appropriately held. Medications are currently appropriately dosed for kidney dysfunction. Vasopressors titrated to MAP ~65. Continue isotonic fluids as Rx. Document strict I/O's. Monitor serial metabolic profile q 8-12 hours. (2) Emphysematous cystitis: Horowitz intact. Imaging reviewed. Empiric antibiotic therapy initiated. Urology consultation pending. CT does not demonstrate any evidence of obstruction. Cultures pending. (3) Rhabdomyolysis: CK trending down. Creatinine downtrending. Atorvastatin held. Isotonic fluids are being provided. UOP improving. (4) Mixed acid base balance disorder: Improving with supportive care. Metformin held. Lactate trending down. Additional HCO3 replacement not required at this time. History of Present Illness Reason for Consultation: Acute renal failure with multifactorial shock Requesting Physician: Bryan Piedra DO Attending Physician: Bryan Piedra DO History of Present Illness Mr. 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 Khadar was last seen on Tuesday. EMS were contacted yesterday as no family were able to contact the patient. On arrival, he was found to be unresponsive with obvious bleeding. There is report of coffee ground emesis as well as bleeding from his urethra and possibly rectum. Emergent PRBC transfusion x 2 units was provided for hemodynamic instability. Khadar was emergently intubated in the ER. He suffered a bradycardic --> Vtach cardiac arrest with ROSC following CPR, amiodarone, and HCO3. Khadar was admitted to the ICU with shock + MOSF requiring vasopressor and mechanical ventilatory support. He was seen and evaluated in the ICU this AM. Khadar remains unresponsive. He is not following commands but is responsive to stimuli. Levophed gtt is being weaned down and vasopressin has been stopped. Urine output is improving with IVF. CT demonstrating air and blood in the bladder. Horowitz draining grossly bloody urine. The patient was evaluated with his family at the bedside this AM. I discussed his condition with his brother (Kendall) and [id number] (Alexandrea). I also discussed the history and plan of care with Dr. Pedraza (health insurance specialist). Khadar had presented to his PCP in early April reporting some abdominal pain and bleeding from his rectum. Allergies Allergy/AdvReac Type Severity Reaction Status Date / Time ciprofloxacin [Cipro] Allergy Severe hives, Verified 02/11/25 15:08 dizzy, vomitting azithromycin AdvReac Intermediate dizzy, Verified 02/11/25 15:08 vomitting Home Medications Medication Instructions Recorded Confirmed Type blood-glucose meter #1 ea 12/06/18 01/07/25 Rx nebulizer and compressor #1 ea 05/10/23 01/07/25 Rx Oxygen Home #1 ea 05/04/24 01/07/25 Rx fluticasone 250 mcg-salmeterol 50 1 inh inhalation BID 05/04/24 02/11/25 History mcg/dose blistr powdr for inhalation apixaban 5 mg tablet (Eliquis) 5 mg PO Q12H #180 tabs 05/25/24 02/11/25 Rx atorvastatin 20 mg tablet 20 mg PO QAM #90 tabs 05/25/24 02/11/25 Rx empagliflozin 10 mg tablet 10 mg PO DAILY #90 tabs 05/25/24 02/11/25 Rx (Jardiance) ferrous sulfate 325 mg (65 mg 325 mg PO BIDM #180 tabs 05/25/24 02/11/25 Rx iron) tablet,delayed release gabapentin 600 mg tablet 600 mg PO TID #270 tabs 05/25/24 02/11/25 Rx (Neurontin) lisinopril 2.5 mg tablet 2.5 mg PO DAILY #90 tabs 05/25/24 02/11/25 Rx magnesium oxide 400 mg (241.3 mg 400 mg PO HS #90 tabs 05/25/24 02/11/25 Rx magnesium) tablet metoprolol succinate 50 mg 50 mg PO QAM #90 tabs 05/25/24 02/11/25 Rx tablet,extended release 24 hr potassium chloride 20 mEq 20 meq PO QAM #90 tabs 05/25/24 02/11/25 Rx tablet,extended release(part/cryst) metformin 500 mg tablet 500 mg PO BID #180 tabs 11/06/24 02/11/25 Rx balsalazide 750 mg capsule 2,250 mg (3 x 750 mg) PO TID #270 01/02/25 02/11/25 Rx caps furosemide 20 mg tablet 20 mg PO DAILY 02/11/25 02/11/25 History Patient History Medical History Cardiomyopathy Poor historian PT non compliant and unware of PMH/medications Prostate cancer CMV colitis Neuropathy GI bleed hx Kidney stones Ulcerative colitis Diabetes mellitus, type 2 niddm Hyperlipidemia Surgical History H/O excision of mass (06/15/22) Excision of Right Upper Extremity Skin Lesion(Right) - Yaya Tena DO History of colon resection due to cancer, approx 3 yrs ago per pt History of cataract surgery bilat History of prostate biopsy History of lithotripsy History of AAA (abdominal aortic aneurysm) repair History of tooth extraction all teeth removed History of colonoscopy Family History Brother Family history of diabetes mellitus FHx: prostate cancer Dementia Sister Family history of diabetes mellitus Breast cancer Family/Other Family history of diabetes mellitus nieces/nephews Father Lung cancer Sister Myocardial infarction, Onset Age: 66 DE happened week of 11/10/18 Other No family history of adverse response to anesthesia Denies family history of Ovarian cancer Prostate cancer Colorectal cancer Social History Smoking Status: Unknown if ever smoked Tobacco Type: Cigarettes Age Started Using Tobacco: 19; Age Quit Using Tobacco: 54; packs per day: 2; Second Hand Exposure: No; Do You Dip or Chew Tobacco: No; Hx Alcohol Use: No (unknown) Hx Substance Use: No (unknown) Preferred Language: Qatari Communication Ability: Unable Communication Ability Comment: DEAF LEFT EAR/GTZ RIGHT EAR-DOESN'T USUALLY WEAR Visual Impairment: No Limitations Hearing Ability: Hard of Hearing Bodybuilder Required: No Beliefs That Will Affect Care: None marital status: Current Living Situation: Alone Current Living Situation Comment: lives alone current occupational status: retired Feels Safe at Home: Yes Childhood Exposure to Second-Hand Smoke: Yes Diet: regular caffeine: Yes during the past year weight has: remained stable Dental Care, Regularly: No Physical Activity Frequency: Daily Seatbelt Use: always Sunscreen Use: No Assistive Devices: Cane and Hearing Aid - Right Review of Systems Review of Systems: Unobtainable due to cognitive status Physical Exam Constitutional: + ill appearing, + altered mental status and + mechanically ventilated Eyes: + conjunctival abnormality and + anicter ic sclerae ENMT: ETT Neck: normal visual inspection and trachea midline Respiratory: symmetric chest movement Auscultation: + bronchial breath sounds Cardiovascular: Rate/Rhythm: + irregularly irregular Heart Sounds: normal S1 and normal S2 Extremities: no edema Gastrointestinal (Abdomen): Inspection/Auscultation: + scaphoid; abdomen not distended Percussion/Palpation: + abdomen tender Musculoskeletal: Extremities: no cyanosis and no clubbing Skin: + turgor decreased; no jaundice Genitourinary: Horowitz draining grossly bloody urine Results & Data Vital Signs (Past 12 Hours) Vital Signs Temp Pulse Resp BP Pulse Ox O2 Del Method FiO2 02/12/25 07:59 94 H 25 H 94 60 02/12/25 07:09 37.1 C 95 H 24 94 02/12/25 07:01 104/89 02/12/25 05:36 37.5 C 99 H 24 95 Mechanical Vent 70 02/12/25 05:19 108/44 L 02/12/25 05:15 37.6 C H 101 H 24 95 Mechanical Vent 70 02/12/25 04:54 37.8 C H 99 H 25 H 95 Mechanical Vent 70 02/12/25 04:15 37.9 C H 104 H 24 98 Mechanical Vent 70 02/12/25 04:00 38.0 C H 104 H 24 98 Mechanical Vent 70 02/12/25 04:00 70 02/12/25 03:48 38.1 C H 100 H 28 H 97 Mechanical Vent 70 02/12/25 03:46 24 70 02/12/25 03:33 38.1 C H 105 H 28 H 99 Mechanical Vent 70 02/12/25 03:30 133 H 28 H 99 70 02/12/25 03:00 38.2 C H 108 H 25 H 94 Mechanical Vent 70 02/12/25 03:00 82/62 L 02/12/25 02:48 38.2 C H 107 H 25 H 95 Mechanical Vent 70 02/12/25 02:45 88/61 L 02/12/25 02:32 38.3 C H 108 H 28 H 97 Mechanical Vent 70 02/12/25 02:26 38.3 C H 108 H 28 H 97 Mechanical Vent 70 02/12/25 02:11 38.3 C H 109 H 28 H 96 Mechanical Vent 02/12/25 02:02 38.3 C H 109 H 28 H 98 Mechanical Vent 70 02/12/25 02:00 93/65 L 02/12/25 01:53 38.3 C H 112 H 28 H 95 Mechanical Vent 70 02/12/25 01:47 38.3 C H 111 H 28 H 96 Mechanical Vent 70 02/12/25 01:12 38.3 C H 112 H 28 H 94 Mechanical Vent 02/12/25 01:03 38.3 C H 111 H 28 H 95 Mechanical Vent 70 02/12/25 01:00 100/66 02/12/25 00:42 38.3 C H 109 H 28 H 94 Mechanical Vent 02/12/25 00:39 38.3 C H 108 H 28 H 94 Mechanical Vent 02/12/25 00:21 38.2 C H 110 H 28 H 95 Mechanical Vent 70 02/12/25 00:12 38.2 C H 111 H 28 H 95 Mechanical Vent 70 02/12/25 00:03 38.1 C H 108 H 28 H 96 Mechanical Vent 70 02/12/25 00:00 70 02/12/25 00:00 107 H 02/12/25 00:00 95/69 L 02/11/25 23:59 107 H 02/11/25 23:48 38.0 C H 109 H 28 H 95 Mechanical Vent 70 02/11/25 23:42 38.0 C H 108 H 28 H 96 Mechanical Vent 70 02/11/25 23:33 37.9 C H 107 H 28 H 96 Mechanical Vent 70 02/11/25 23:03 106 H 27 H 96 70 02/11/25 22:33 37.5 C 109 H 28 H 96 Mechanical Vent 70 02/11/25 22:12 37.3 C 108 H 28 H 96 Mechanical Vent 70 02/11/25 22:00 106/73 02/11/25 22:00 37.1 C 107 H 28 H 96 Mechanical Vent 70 02/11/25 21:42 36.9 C 105 H 28 H 95 Mechanical Vent 70 02/11/25 21:39 36.8 C 105 H 28 H 95 Mechanical Vent 70 02/11/25 21:12 36.6 C 100 H 28 H 95 Mechanical Vent 70 02/11/25 21:03 36.5 C 100 H 28 H 96 Mechanical Vent 70 02/11/25 21:00 99/76 L Laboratory Results Laboratory Results - last 24 hr 02/11/25 02/11/25 02/11/25 14:45 14:53 14:56 WBC 24.62 H RBC 5.59 Hgb 16.9 POC Hgb 18.7 H Hct 54.6 H POC Hct 55 H MCV 97.7 MCH 30.2 MCHC 31.0 L RDW Std Deviation 51.8 H RDW Coeff of Kayy 14.2 Plt Count 243 MPV 10.7 Immature Gran % (Auto) 4.8 Neut % (Auto) 84.8 Lymph % (Auto) 6.2 Living[place] % (Auto) 3.5 Eos % (Auto) 0.4 Baso % (Auto) 0.3 Neut # (Auto) 20.90 H Lymph # (Auto) 1.52 [place] # (Auto) 0.86 H Eos # (Auto) 0.09 Baso # (Auto) 0.07 Immature Gran # (Auto) 1.18 H Absolute Nucleated RBC Nucleated RBC % (auto) Toxic Vacuolation 2+ Dohle Bodies 1+ Polychromasia Echinocytes Acanthocytes (Spur) 2+ PT 17.3 H INR 1.7 H APTT 34 H PTT Ratio 1.3 Fibrinogen > 860 H D-Dimer 6690 H* Heparin Anti-Xa, LM Wt 1.13 Specimen Type Sample Site POC pH POC pCO2 POC pO2 POC HCO3 POC Base Excess O2 Sat Pulse Oximetry ABG pH (Temp Correct) ABG pCO2 (Temp Corrct POC ABG pO2 at Pt Temp POC ABG O2 Sat Nahum Test VBG pH VBG pCO2 VBG pO2 VBG HCO3 VBG O2 Saturation VBG Base Excess O2 Delivery Device Vent Mode POC FiO2 End Tidal CO2 POC Sodium 140 Sodium 139 POC Potassium 5.7 H Potassium 5.8 H POC Chloride 109 Chloride 100 Carbon Dioxide 20 L POC Total CO2 22 L Anion Gap 19 H POC Anion Gap 15.0 L POC BUN 67 H BUN 63 H Creatinine 5.70 H* POC Creatinine 5.8 H* Est Cr Clr Drug Dosing Not Reportable eGFR 9.72 BUN/Creatinine Ratio 11.1 Glucose 162 H POC Glucose (other) 160 H Lactate 8.0 H* Calcium 9.2 POC Ioniz Calcium Evaristo 0.99 L Ionized Calcium Phosphorus Magnesium 2.4 Total Bilirubin 1.1 H Direct Bilirubin TNP AST 93 H ALT 23 Alkaline Phosphatase 76 Total Creatine Kinase Troponin I High Sens 577.1 H* Total Protein 8.2 Albumin 3.5 Globulin Albumin/Globulin Ratio Procalcitonin > 100.00 H Random Cortisol Urine Color Urine Appearance Urine pH Ur Specific Laurel Urine Protein Urine Glucose (UA) Urine Ketones Urine Blood Urine Nitrite Urine Bilirubin Urine Urobilinogen Ur Leukocyte Esterase Urine RBC Urine WBC Ur Epithelial Cells Urine Bacteria Urine Comment Nasal Screen MRSA (PCR) Blood Type Antibody Screen Crossmatch 02/11/25 02/11/25 02/11/25 15:27 15:49 16:13 WBC RBC Hgb POC Hgb 13.3 L Hct POC Hct 39 L MCV MCH MCHC RDW Std Deviation RDW Coeff of Kayy Plt Count MPV Immature Gran % (Auto) Neut % (Auto) Lymph % (Auto) Livingston % (Auto) Eos % (Auto) Baso % (Auto) Neut # (Auto) Lymph # (Auto) [place] # (Auto) Eos # (Auto) Baso # (Auto) Immature Gran # (Auto) Absolute Nucleated RBC Nucleated RBC % (auto) Toxic Vacuolation Dohle Bodies Polychromasia Echinocytes Acanthocytes (Spur) PT INR APTT PTT Ratio Fibrinogen D-Dimer Heparin Anti-Xa, LM Wt Specimen Type Arterial Sample Site Art Line POC pH 6.99 L* POC pCO2 75 H POC pO2 427 H POC HCO3 18 L POC Base Excess -13.0 L O2 Sat Pulse Oximetry 100 ABG pH (Temp Correct) 6.986 L* ABG pCO2 (Temp Corrct 76 H POC ABG pO2 at Pt Temp 429 POC ABG O2 Sat 100.0 H Nahum Test NA VBG pH < 7.00 L VBG pCO2 78 H VBG pO2 84 VBG HCO3 TNP VBG O2 Saturation 94.8 VBG Base Excess TNP O2 Delivery Device Ventilator Vent Mode AC POC FiO2 100 End Tidal CO2 48 POC Sodium 143 Sodium POC Potassium 4.3 Potassium POC Chloride Chloride Carbon Dioxide POC Total CO2 20 L Anion Gap POC Anion Gap POC BUN BUN Creatinine POC Creatinine Est Cr Clr Drug Dosing eGFR BUN/Creatinine Ratio Glucose POC Glucose (other) Lactate Calcium POC Ioniz Calcium Evaristo Ionized Calcium Phosphorus Magnesium Total Bilirubin Direct Bilirubin AST ALT Alkaline Phosphatase Total Creatine Kinase Troponin I High Sens Total Protein Albumin Globulin Albumin/Globulin Ratio Procalcitonin Random Cortisol Urine Color Urine Appearance Urine pH Ur Specific Laurel Urine Protein Urine Glucose (UA) Urine Ketones Urine Blood Urine Nitrite Urine Bilirubin Urine Urobilinogen Ur Leukocyte Esterase Urine RBC Urine WBC Ur Epithelial Cells Urine Bacteria Urine Comment Nasal Screen MRSA (PCR) Blood Type A Positive Antibody Screen NEGATIVE Crossmatch See Detail 02/11/25 02/11/25 02/11/25 16:49 17:49 19:10 WBC RBC Hgb POC Hgb 15.0 16.0 Hct POC Hct 44 47 MCV MCH MCHC RDW Std Deviation RDW Coeff of Kayy Plt Count MPV Immature Gran % (Auto) Neut % (Auto) Lymph % (Auto) Livingston % (Auto) Eos % (Auto) Baso % (Auto) Neut # (Auto) Lymph # (Auto) Livingston # (Auto) Eos # (Auto) Baso # (Auto) Immature Gran # (Auto) Absolute Nucleated RBC Nucleated RBC % (auto) Toxic Vacuolation Dohle Bodies Polychromasia Echinocytes Acanthocytes (Spur) PT INR APTT PTT Ratio Fibrinogen D-Dimer Heparin Anti-Xa, LM Wt Specimen Type Arterial Sample Site Art Line POC pH 7.16 L* POC pCO2 48 H POC pO2 102 H POC HCO3 17 L POC Base Excess -11.0 L O2 Sat Pulse Oximetry 96 ABG pH (Temp Correct) 7.174 L* ABG pCO2 (Temp Corrct 46 POC ABG pO2 at Pt Temp 96 POC ABG O2 Sat 96.0 H Nahum Test NA VBG pH VBG pCO2 VBG pO2 VBG HCO3 VBG O2 Saturation VBG Base Excess O2 Delivery Device Ventilator Vent Mode AC POC FiO2 70 End Tidal CO2 26 POC Sodium 143 141 Sodium POC Potassium 4.3 4.2 Potassium POC Chloride 107 Chloride Carbon Dioxide POC Total CO2 20 L 19 L Anion Gap POC Anion Gap 21.0 POC BUN 56 H BUN Creatinine POC Creatinine 4.7 H* Est Cr Clr Drug Dosing eGFR BUN/Creatinine Ratio Glucose POC Glucose (other) 175 H Lactate Calcium POC Ioniz Calcium Evaristo 1.10 L Ionized Calcium Phosphorus Magnesium Total Bilirubin Direct Bilirubin AST ALT Alkaline Phosphatase Total Creatine Kinase Troponin I High Sens Total Protein Albumin Globulin Albumin/Globulin Ratio Procalcitonin Random Cortisol Urine Color See Comment Urine Appearance Turbid A Urine pH Not Reportable Ur Specific Laurel > 1.030 H Urine Protein Not Reportable Urine Glucose (UA) Not Reportable Urine Ketones Not Reportable Urine Blood Not Reportable Urine Nitrite Not Reportable Urine Bilirubin Not Reportable Urine Urobilinogen Not Reportable Ur Leukocyte Esterase Not Reportable Urine RBC >20 H Urine WBC >50 H Ur Epithelial Cells 0-2 Urine Bacteria None Seen Urine Comment Nasal Screen MRSA (PCR) Blood Type Antibody Screen Crossmatch 02/11/25 02/11/25 02/11/25 19:21 19:24 20:15 WBC 19.72 H RBC 4.93 Hgb 14.8 Cancelled POC Hgb Hct 47.5 POC Hct MCV 96.3 MCH 30.0 MCHC 31.2 L RDW Std Deviation 53.6 H RDW Coeff of Kayy 15.0 H Plt Count 199 MPV 10.7 Immature Gran % (Auto) 1.0 Neut % (Auto) 92.1 Lymph % (Auto) 3.4 Living[place] % (Auto) 3.2 Eos % (Auto) 0.0 Baso % (Auto) 0.3 Neut # (Auto) 18.16 H Lymph # (Auto) 0.67 L Living[place] # (Auto) 0.64 H Eos # (Auto) 0.00 Baso # (Auto) 0.05 Immature Gran # (Auto) 0.20 Absolute Nucleated RBC 0.02 Nucleated RBC % (auto) 0.1 Toxic Vacuolation 1+ Dohle Bodies Polychromasia 1+ Echinocytes 2+ Acanthocytes (Spur) PT 15.0 H INR 1.4 H APTT PTT Ratio Fibrinogen 814 H D-Dimer Heparin Anti-Xa, LM Wt Specimen Type Sample Site POC pH POC pCO2 POC pO2 POC HCO3 POC Base Excess O2 Sat Pulse Oximetry ABG pH (Temp Correct) ABG pCO2 (Temp Corrct POC ABG pO2 at Pt Temp POC ABG O2 Sat Nahum Test VBG pH VBG pCO2 VBG pO2 VBG HCO3 VBG O2 Saturation VBG Base Excess O2 Delivery Device Vent Mode POC FiO2 End Tidal CO2 POC Sodium Sodium 140 POC Potassium Potassium 4.2 D POC Chloride Chloride 103 Carbon Dioxide 17 L POC Total CO2 Anion Gap 20 H POC Anion Gap POC BUN BUN 60 H Creatinine 5.09 H* D POC Creatinine Est Cr Clr Drug Dosing Not Reportable eGFR 11.14 BUN/Creatinine Ratio 11.8 Glucose 288 H POC Glucose (other) Lactate 7.3 H* Calcium 8.6 POC Ioniz Calcium Evaristo Ionized Calcium Phosphorus Magnesium Total Bilirubin 1.4 H Direct Bilirubin AST 149 H ALT 36 Alkaline Phosphatase 75 Total Creatine Kinase 7822 H Troponin I High Sens Total Protein 6.2 D Albumin 2.5 L Globulin 3.7 Albumin/Globulin Ratio 0.7 L Procalcitonin Random Cortisol Urine Color Urine Appearance Urine pH Ur Specific La[place] Urine Protein Urine Glucose (UA) Urine Ketones Urine Blood Urine Nitrite Urine Bilirubin Urine Urobilinogen Ur Leukocyte Esterase Urine RBC Urine WBC Ur Epithelial Cells Urine Bacteria Urine Comment Nasal Screen MRSA (PCR) Blood Type Antibody Screen Crossmatch 02/11/25 02/11/25 02/11/25 21:30 22:10 Unknown WBC RBC Hgb POC Hgb Hct POC Hct MCV MCH MCHC RDW Std Deviation RDW Coeff of Kayy Plt Count MPV Immature Gran % (Auto) Neut % (Auto) Lymph % (Auto) [place] % (Auto) Eos % (Auto) Baso % (Auto) Neut # (Auto) Lymph # (Auto) [place] # (Auto) Eos # (Auto) Baso # (Auto) Immature Gran # (Auto) Absolute Nucleated RBC Nucleated RBC % (auto) Toxic Vacuolation Dohle Bodies Polychromasia Echinocytes Acanthocytes (Spur) PT INR APTT PTT Ratio Fibrinogen D-Dimer Heparin Anti-Xa, LM Wt Specimen Type Sample Site POC pH POC pCO2 POC pO2 POC HCO3 POC Base Excess O2 Sat Pulse Oximetry ABG pH (Temp Correct) ABG pCO2 (Temp Corrct POC ABG pO2 at Pt Temp POC ABG O2 Sat Nahum Test VBG pH 7.32 L VBG pCO2 37 L VBG pO2 90 VBG HCO3 19 VBG O2 Saturation 99.5 VBG Base Excess -6.4 O2 Delivery Device Vent Mode POC FiO2 End Tidal CO2 POC Sodium Sodium POC Potassium Potassium POC Chloride Chloride Carbon Dioxide POC Total CO2 Anion Gap POC Anion Gap POC BUN BUN Creatinine POC Creatinine Est Cr Clr Drug Dosing eGFR BUN/Creatinine Ratio Glucose POC Glucose (other) 308 H Lactate Calcium POC Ioniz Calcium Evaristo Ionized Calcium Phosphorus Magnesium Total Bilirubin Direct Bilirubin AST ALT Alkaline Phosphatase Total Creatine Kinase Troponin I High Sens Total Protein Albumin Globulin Albumin/Globulin Ratio Procalcitonin Random Cortisol > 60.00 Urine Color Urine Appearance Urine pH Ur Specific Laurel Urine Protein Urine Glucose (UA) Urine Ketones Urine Blood Urine Nitrite Urine Bilirubin Urine Urobilinogen Ur Leukocyte Esterase Urine RBC Urine WBC Ur Epithelial Cells Urine Bacteria Urine Comment Nasal Screen MRSA (PCR) Negative Blood Type Antibody Screen Crossmatch 02/12/25 02/12/25 02/12/25 00:18 01:26 03:44 WBC 12.26 H RBC 4.74 Hgb 14.3 POC Hgb 13.6 L Hct 44.2 POC Hct 40 L MCV 93.2 MCH 30.2 MCHC 32.4 RDW Std Deviation 52.1 H RDW Coeff of Kayy 15.2 H Plt Count 164 MPV 10.8 Immature Gran % (Auto) 0.3 Neut % (Auto) 93.2 Lymph % (Auto) 5.1 Living[place] % (Auto) 1.3 Eos % (Auto) 0.0 Baso % (Auto) 0.1 Neut # (Auto) 11.43 H Lymph # (Auto) 0.62 L [place] # (Auto) 0.16 Eos # (Auto) 0.00 Baso # (Auto) 0.01 Immature Gran # (Auto) 0.04 Absolute Nucleated RBC Nucleated RBC % (auto) Toxic Vacuolation 1+ Dohle Bodies Polychromasia 1+ Echinocytes 2+ Acanthocytes (Spur) PT INR APTT PTT Ratio Fibrinogen D-Dimer Heparin Anti-Xa, LM Wt Specimen Type Arterial Sample Site Art Line POC pH 7.44 POC pCO2 33 L POC pO2 85 POC HCO3 22 POC Base Excess -2.0 O2 Sat Pulse Oximetry 98 ABG pH (Temp Correct) 7.426 ABG pCO2 (Temp Corrct 34 L POC ABG pO2 at Pt Temp 91 POC ABG O2 Sat 97.0 H Nahum Test NA VBG pH VBG pCO2 VBG pO2 VBG HCO3 VBG O2 Saturation VBG Base Excess O2 Delivery Device Ventilator Vent Mode AC POC FiO2 70 End Tidal CO2 19 POC Sodium 136 Sodium 138 POC Potassium 4.2 Potassium 4.1 POC Chloride Chloride 100 Carbon Dioxide 23 POC Total CO2 23 L Anion Gap 15 H POC Anion Gap POC BUN BUN 65 H Creatinine 4.95 H* POC Creatinine Est Cr Clr Drug Dosing 12.9 eGFR 11.52 BUN/Creatinine Ratio 13.1 Glucose 262 H POC Glucose (other) 211 H Lactate 4.4 H* Calcium 7.7 L POC Ioniz Calcium Evaristo Ionized Calcium Phosphorus Magnesium Total Bilirubin 1.3 H Direct Bilirubin AST 151 H ALT 35 Alkaline Phosphatase 66 Total Creatine Kinase Troponin I High Sens Total Protein 5.5 L Albumin 2.5 L Globulin 3.0 Albumin/Globulin Ratio 0.8 L Procalcitonin Random Cortisol Urine Color Urine Appearance Urine pH Ur Specific [place] Urine Protein Urine Glucose (UA) Urine Ketones Urine Blood Urine Nitrite Urine Bilirubin Urine Urobilinogen Ur Leukocyte Esterase Urine RBC Urine WBC Ur Epithelial Cells Urine Bacteria Urine Comment Nasal Screen MRSA (PCR) Blood Type Antibody Screen Crossmatch 02/12/25 02/12/25 03:54 04:14 WBC 13.14 H RBC 4.51 L Hgb 13.7 L POC Hgb Hct 41.6 L POC Hct MCV 92.2 MCH 30.4 MCHC 32.9 RDW Std Deviation 51.8 H RDW Coeff of Kayy 15.2 H Plt Count 163 MPV 11.0 Immature Gran % (Auto) 0.5 Neut % (Auto) 90.5 Lymph % (Auto) 5.1 [place] % (Auto) 3.0 Eos % (Auto) 0.0 Baso % (Auto) 0.9 Neut # (Auto) 11.90 H Lymph # (Auto) 0.67 L [place] # (Auto) 0.39 Eos # (Auto) 0.00 Baso # (Auto) 0.12 Immature Gran # (Auto) 0.06 Absolute Nucleated RBC Nucleated RBC % (auto) Toxic Vacuolation 1+ Dohle Bodies 1+ Polychromasia 1+ Echinocytes 2+ Acanthocytes (Spur) PT 16.2 H INR 1.6 H APTT PTT Ratio Fibrinogen D-Dimer Heparin Anti-Xa, LM Wt Specimen Type Sample Site POC pH POC pCO2 POC pO2 POC HCO3 POC Base Excess O2 Sat Pulse Oximetry ABG pH (Temp Correct) ABG pCO2 (Temp Corrct POC ABG pO2 at Pt Temp POC ABG O2 Sat Nahum Test VBG pH VBG pCO2 VBG pO2 VBG HCO3 VBG O2 Saturation VBG Base Excess O2 Delivery Device Vent Mode POC FiO2 End Tidal CO2 POC Sodium Sodium POC Potassium Potassium POC Chloride Chloride Carbon Dioxide POC Total CO2 Anion Gap POC Anion Gap POC BUN BUN Creatinine POC Creatinine Est Cr Clr Drug Dosing eGFR BUN/Creatinine Ratio Glucose POC Glucose (other) 147 H Lactate Calcium POC Ioniz Calcium Evaristo Ionized Calcium 0.94 L Phosphorus 3.0 Magnesium 1.9 Total Bilirubin Direct Bilirubin AST ALT Alkaline Phosphatase Total Creatine Kinase Troponin I High Sens Total Protein Albumin Globulin Albumin/Globulin Ratio Procalcitonin Random Cortisol Urine Color Urine Appearance Urine pH Ur Specific [place] Urine Protein Urine Glucose (UA) Urine Ketones Urine Blood Urine Nitrite Urine Bilirubin Urine Urobilinogen Ur Leukocyte Esterase Urine RBC Urine WBC Ur Epithelial Cells Urine Bacteria Urine Comment Nasal Screen MRSA (PCR) Blood Type Antibody Screen Crossmatch Diagnostic Findings CT of the chest, abdomen and pelvis performed without the administration of IV contrast COMPARISON: None FINDINGS: Lines and tubes: Endotracheal tube tip in the mid thoracic trachea. Mediastinum/Neck Base: No thyroid nodules. Central tracheobronchial tree is patent. Heart size is enlarged. No pericardial effusion. Normal thoracic vasculature. No thoracic lymphadenopathy. Prominent aortic valve calcification. Mild coronary calcification. Lungs: There are trace bilateral pleural effusions. Scattered patchy irregular nodular opacities are seen throughout the lung bases in the posterior right upper lobe. There is severe emphysema. Liver: No suspicious liver lesions. Gallbladder: Cholecystectomy Spleen: Normal size. Pancreas: No suspicious pancreatic lesions. The pancreatic duct is not dilated. Adrenal glands: No adrenal nodules. Kidneys: No hydronephrosis or obstructing renal stones. Bladder / Pelvic organs: The urinary bladder wall is thickened. The bladder is incompletely distended with a Horowitz catheter in place. There is gross air in the urinary bladder, which may be related to catheterization. However there are also foci of air circumferentially extending along the mucosal surface of the urinary bladder wall internally, and foci inside the wall seen. There is free air noted above the urinary bladder, which appears to be in the extraperitoneal space surrounded by inflammatory fat stranding.. Bowel: No bowel obstruction. No abnormal bowel wall thickening. No evidence for appendicitis. Lymph nodes: No retroperitoneal, mesenteric, or pelvic lymphadenopathy. Peritoneum / Retroperitoneum: No free fluid or air within the abdomen. Vessels: No infrarenal aortic aneurysm. Aortoiliac stent in place. Right femoral central line tip at the common iliac vein. Bones and soft tissues: Degenerative changes of the spine. No acute osseous normality. IMPRESSION: 1. Patchy opacities throughout the lower lobes and posterior right upper lobe, are favored infectious. 2. Foci of air are seen circumferentially about the mucosal surface of the urinary bladder, as well as within the wall. Patchy foci of free air also appear to be seen outside the urinary bladder associated with fat stranding, and are confined to the extraperitoneal space, and are likely urinary bladder in origin. A bowel perforation seems less likely. The findings are suspicious for emphysematous cystitis. XR chest 1V portable TECHNIQUE: An X-ray image of the chest was obtained in the AP projection. COMPARISON: CT dated 02/11/2025. FINDINGS: An endotracheal tube is in situ, 3.2 cm above the janie. A nasogastric tube traverses the left side of the diaphragm and is in situ. Pulmonary Parenchyma: Bilateral pulmonary opacities are noted, more conspicuous and marked in the right lung, with a few ill-defined opacities in the left mid and lower zones. These findings may be due to an inflammatory or infectious process. Clinical and laboratory correlation is suggested. No evidence of pleural effusion or pleural thickening is seen. Heart and Mediastinum: The heart size and shape are normal. No mediastinal widening or masses are present. No hilar or mediastinal lymphadenopathy is identified. Bony Thorax: Old healed fractures are seen in the left 5th, 6th, and 7th posterior ribs. No acute fracture or deformity is seen. Soft Tissues: The soft tissues overlying the chest wall are unremarkable. IMPRESSION: 1. The endotracheal tube is in situ, 3.2 cm above the janie. 2. Nasogastric tube traverses the left side of the hemidiaphragm and is in situ. 3. Bilateral pulmonary opacities are more conspicuous and marked in the right lung, with a few ill-defined opacities in the left mid and lower zones. These findings may be due to an inflammatory or infectious process. 4. Clinical and laboratory correlation is suggested. 5. Compared with the CT dated 02/11/2025, no interval changes are noted. 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
--- NOTE | 2025-02-12 10:39 | Urology Consultation ---
<Statement entered by Ted Jones MD - 02/12/25 14:24> Chart reviewed plan reviewed and agree as written. Date of Consultation February 12, 2025 Assessment & Plan (1) Emphysematous cystitis: (2) Hematuria: Plan 74yo critically ill male who is intubated in the ICU with multiorgan dysfunction and sepsis in setting of pneumonia and urologic infection - Urology consulted for hematuria and air in/around the bladder on CT imaging - Intubated in ICU on pressor support. - Labs -WBCs 13.14, Hemoglobin 13.7, Creatinine 4.95 (was 5.70 on admit). - CT noted air circumferentially extending along the mucosal surface of the bladder wall internally, inside the wall, and above the urinary bladder which appears to be in the extraperitoneal space surrounded by inflammatory fat stranding. No stones or hydronephrosis. - Air likely from catheterization and emphysematous cystitis, possibly a fistula. Was question of bladder perf which seems less likely. If ongoing concern, could consider a cystogram in a few days pending patient clinical status and patient/family goals/wishes. - No intervention indicated at this time. - Horowitz currently intact and draining light red urine. No clots visualized at time of exam. - Continue Horowitz catheter and monitor output. - OK to hand irrigate the catheter as needed for clots/obstruction. - Urology can manage hematuria as needed. - Urine culture prelim E.coli; Blood cultures pending. - Continue antibiotic therapy and tailor per culture sensitivities. - Continue supportive care and management per primary team. - will follow- please contact us with any questions/concerns or changes in patient status. History of Present Illness Attending Physician: Bryan Piedra DO History of Present Illness 74-year-old male who presented to the emergency room via EMS yesterday after being found unresponsive at home. EMS reported bleeding from possibly his urethra or rectum on their arrival. He received PRBC transfusion x 2 units en route to the hospital. In the ED, he had a cardiac arrest and ACLS was initiated with ROSC achieved. He is intubated and admitted to the ICU. CT i maging demonstrated pneumonia and emphysematous cystitis. Horowitz catheter was placed in the ED and patient noted to have hematuria. Urology consulted for hematuria and air in/around the bladder. Patient previously followed with Dr. Jesus. Last seen in April 2020. History of radical prostatectomy with Dr. Amaro in March 2019. Patient was seen at bedside today in the ICU. Family at bedside. Remains intubated and on ventilator and pressor support. Horowitz draining light red urine at time of exam. Allergies Allergy/AdvReac Type Severity Reaction Status Date / Time ciprofloxacin [Cipro] Allergy Severe hives, Verified 02/11/25 15:08 dizzy, vomitting azithromycin AdvReac Intermediate dizzy, Verified 02/11/25 15:08 vomitting Home Medications Medication Instructions Recorded Confirmed Type blood-glucose meter #1 ea 12/06/18 01/07/25 Rx nebulizer and compressor #1 ea 05/10/23 01/07/25 Rx Oxygen Home #1 ea 05/04/24 01/07/25 Rx fluticasone 250 mcg-salmeterol 50 1 inh inhalation BID 05/04/24 02/11/25 History mcg/dose blistr powdr for inhalation apixaban 5 mg tablet (Eliquis) 5 mg PO Q12H #180 tabs 05/25/24 02/11/25 Rx atorvastatin 20 mg tablet 20 mg PO QAM #90 tabs 05/25/24 02/11/25 Rx empagliflozin 10 mg tablet 10 mg PO DAILY #90 tabs 05/25/24 02/11/25 Rx (Jardiance) ferrous sulfate 325 mg (65 mg 325 mg PO BIDM #180 tabs 05/25/24 02/11/25 Rx iron) tablet,delayed release gabapentin 600 mg tablet 600 mg PO TID #270 tabs 05/25/24 02/11/25 Rx (Neurontin) lisinopril 2.5 mg tablet 2.5 mg PO DAILY #90 tabs 05/25/24 02/11/25 Rx magnesium oxide 400 mg (241.3 mg 400 mg PO HS #90 tabs 05/25/24 02/11/25 Rx magnesium) tablet metoprolol succinate 50 mg 50 mg PO QAM #90 tabs 05/25/24 02/11/25 Rx tablet,extended release 24 hr potassium chloride 20 mEq 20 meq PO QAM #90 tabs 05/25/24 02/11/25 Rx tablet,extended release(part/cryst) metformin 500 mg tablet 500 mg PO BID #180 tabs 11/06/24 02/11/25 Rx balsalazide 750 mg capsule 2,250 mg (3 x 750 mg) PO TID #270 01/02/25 02/11/25 Rx caps furosemide 20 mg tablet 20 mg PO DAILY 02/11/25 02/11/25 History Patient History Medical History Cardiomyopathy Poor historian PT non compliant and unware of PMH/medications Prostate cancer CMV colitis Neuropathy GI bleed hx Kidney stones Ulcerative colitis Diabetes mellitus, type 2 niddm Hyperlipidemia Surgical History H/O excision of mass (06/15/22) Excision of Right Upper Extremity Skin Lesion(Right) - Yaya Tena DO History of colon resection due to cancer, approx 3 yrs ago per pt History of cataract surgery bilat History of prostate biopsy History of lithotripsy History of AAA (abdominal aortic aneurysm) repair History of tooth extraction all teeth removed History of colonoscopy Family History Brother Family history of diabetes mellitus FHx: prostate cancer Dementia Sister Family history of diabetes mellitus Breast cancer Family/Other Family history of diabetes mellitus nieces/nephews Father Lung cancer Sister Myocardial infarction, Onset Age: 66 VT happened week of 11/10/18 Other No family history of adverse response to anesthesia Denies family history of Ovarian cancer Prostate cancer Colorectal cancer Social History Smoking Status: Unknown if ever smoked Tobacco Type: Cigarettes Age Started Using Tobacco: 19; Age Quit Using Tobacco: 54; packs per day: 2; Second Hand Exposure: No; Do You Dip or Chew Tobacco: No; Hx Alcohol Use: No (unknown) Hx Substance Use: No (unknown) Preferred Language: Danish Communication Ability: Unable Communication Ability Comment: DEAF LEFT EAR/GTZ RIGHT EAR-DOESN'T USUALLY WEAR Visual Impairment: No Limitations Hearing Ability: Hard of Hearing Managing Principal Required: No Beliefs That Will Affect Care: None marital status: Current Living Situation: Alone Current Living Situation Comment: lives alone current occupational status: retired Feels Safe at Home: Yes Childhood Exposure to Second-Hand Smoke: Yes Diet: regular caffeine: Yes during the past year weight has: remained stable Dental Care, Regularly: No Physical Activity Frequency: Daily Seatbelt Use: always Sunscreen Use: No Assistive Devices: Oxygen - Continuous and Walker Review of Systems Review of Systems: Unobtainable due to cognitive status Physical Exam Constitutional: + ill appearing, + altered mental status and + mechanically ventilated ENMT: ETT Genitourinary: Horowitz draining w/hematuria Results & Data Vital Signs (Past 12 Hours) Vital Signs Temp Pulse Resp BP Pulse Ox O2 Del Method FiO2 02/12/25 07:59 94 H 25 H 94 60 02/12/25 07:09 37.1 C 95 H 24 94 02/12/25 07:01 104/89 02/12/25 05:36 37.5 C 99 H 24 95 Mechanical Vent 70 02/12/25 05:19 108/44 L 02/12/25 05:15 37.6 C H 101 H 24 95 Mechanical Vent 70 02/12/25 04:54 37.8 C H 99 H 25 H 95 Mechanical Vent 70 02/12/25 04:15 37.9 C H 104 H 24 98 Mechanical Vent 70 02/12/25 04:00 38.0 C H 104 H 24 98 Mechanical Vent 70 02/12/25 04:00 70 02/12/25 03:48 38.1 C H 100 H 28 H 97 Mechanical Vent 70 02/12/25 03:46 24 70 02/12/25 03:33 38.1 C H 105 H 28 H 99 Mechanical Vent 70 02/12/25 03:30 133 H 28 H 99 70 02/12/25 03:00 38.2 C H 108 H 25 H 94 Mechanical Vent 70 02/12/25 03:00 82/62 L 02/12/25 02:48 38.2 C H 107 H 25 H 95 Mechanical Vent 70 02/12/25 02:45 88/61 L 02/12/25 02:32 38.3 C H 108 H 28 H 97 Mechanical Vent 70 02/12/25 02:26 38.3 C H 108 H 28 H 97 Mechanical Vent 70 02/12/25 02:11 38.3 C H 109 H 28 H 96 Mechanical Vent 70 02/12/25 02:02 38.3 C H 109 H 28 H 98 Mechanical Vent 70 02/12/25 02:00 93/65 L 02/12/25 01:53 38.3 C H 112 H 28 H 95 Mechanical Vent 70 02/12/25 01:47 38.3 C H 111 H 28 H 96 Mechanical Vent 70 02/12/25 01:12 38.3 C H 112 H 28 H 94 Mechanical Vent 70 02/12/25 01:03 38.3 C H 111 H 28 H 95 Mechanical Vent 70 02/12/25 01:00 100/66 02/12/25 00:42 38.3 C H 109 H 28 H 94 Mechanical Vent 70 02/12/25 00:39 38.3 C H 108 H 28 H 94 Mechanical Vent 70 02/12/25 00:21 38.2 C H 110 H 28 H 95 Mechanical Vent 70 02/12/25 00:12 38.2 C H 111 H 28 H 95 Mechanical Vent 70 02/12/25 00:03 38.1 C H 108 H 28 H 96 Mechanical Vent 70 02/12/25 00:00 70 02/12/25 00:00 107 H 02/12/25 00:00 95/69 L 02/11/25 23:59 107 H 02/11/25 23:48 38.0 C H 109 H 28 H 95 Mechanical Vent 70 02/11/25 23:42 38.0 C H 108 H 28 H 96 Mechanical Vent 70 02/11/25 23:33 37.9 C H 107 H 28 H 96 Mechanical Vent 70 02/11/25 23:03 106 H 27 H 96 70 02/11/25 22:33 37.5 C 109 H 28 H 96 Mechanical Vent 70 02/11/25 22:12 37.3 C 108 H 28 H 96 Mechanical Vent 70 02/11/25 22:00 106/73 02/11/25 22:00 37.1 C 107 H 28 H 96 Mechanical Vent 70 PG Care Time/CCT Total # of Minutes Spent Total Time Spent with Patient: Total time spent is greater than 50% in coordination of care (as documented) at patient's floor/unit and/or counseling patient: Coding Level of Care Code 19433 INT INP/OBS CARE 2/55MIN Diagnoses 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
--- NOTE | 2025-02-12 10:58 | Pharmacy Report ---
Pharmacy PK ABX Note - Date of Service February 12, 2025 - Assessment and Plan Assessment 74 year old M receiving vancomycin and cefepime empirically for sepsis, possibly from urinary source. WBC and PCT elevated. Pertinent microbiologic data includes: Negative MRSA Nasal Swab, urine culture growing E. coli. Discussed on ICU rounds today. Vancomycin will likely not be continued given E. coli in urine and negative MRSA nasal swab, but will ensure BCx negative at 24 hours. Given GILLIAN, will not redose today and order a random level with AM labs tomorrow in the event vanc does continue. Day # 2 of antimicrobial therapy. Plan Vancomycin * Loading dose: 1500 mg IV x 1 * Maintenance dose: TBD * Random level ordered for: 02/13/25 with AM labs Pharmacy will continue to follow and will adjust dose/frequency as necessary. Thank you. Pharmacy has transitioned to AUC monitoring for vancomycin. AUC/KHUSHBU is the preferred PK/PD target and is associated with decreased risk of nephrotoxicity compared to traditional trough targets.
[2025-02-12] MEDS: PANTOprazole 40 MG/10 ML SYR IV SCH (11:00)
[2025-02-12] MEDS ORDERED: PANTOprazole 40 MG in DEXTROSE 5% MINI-B 100 ML IV SCH (11:00)
[2025-02-12] MEDS: CALCIUM GLUCONATE 1,000 MG/60 ML BAG IV SCH (11:00)
--- NOTE | 2025-02-12 11:17 | Pharmacy Report ---
Pharmacy Glycemic Short Note 2 - Date of Service February 12, 2025 - Glycemic Short BSG Results (Last 24 hours): 02/11/25 02/11/25 02/11/25 14:45 14:56 16:49 Glucose 162 H POC Glucose (other) 160 H 175 H 02/11/25 02/11/25 02/12/25 19:21 22:10 00:18 Glucose 288 H 262 H POC Glucose (other) 308 H 02/12/25 02/12/25 02/12/25 01:26 04:14 09:09 Glucose POC Glucose (other) 211 H 147 H 136 H OUTPATIENT ANTIDIABETIC REGIMEN: * Jardiance 10 mg daily * Metformin * 6.1% 01/04/25 ASSESSMENT: * Patient admitted with septic shock and GILLIAN, post Cardiac arrest. * BSGs have downtrended overnight after a one time dose of Lantus and NovoLog scale q4. * Given BSGs within range currently and patient's severity of illness requiring multiple pressors, will not redose with SC basal insulin at this time. Will plan to manage with q4 NovoLog and if BSGs trend up considerably again would consider an insulin infusion at that time. PLAN FOR INPATIENT GLYCEMIC CONTROL: * Hold outpatient oral diabetes medications * Basal insulin * Lantus 20 units administered last evening * Bolus insulin * NovoLog per scale ACHS or Q6hrs while NPO * Goal Range: Low 120 mg/dL - High 160 mg/dL * Correction Factor: 30 mg/dL/unit * Nutritional / Prandial insulin per carb ratio of 1 unit per 10 grams CHO consumed
--- NOTE | 2025-02-12 12:10 | XCELERA ---
[id number]
[2025-02-12 13:42] LABS: Hematocrit (blood only) 42.1 % (42.0-52.0); Hemoglobin 13.8 g/dl (14.0-18.0); Mean Corpuscular Hemoglobin 30.5 pg (25.0-34.0); Mean Corpuscular Volume 92.9 fL (80.0-100.0); Platelet Count 147 K/uL (130-400); RDW Standard Deviation 52.8 fL (36.4-46.3); Red Blood Count 4.53 M/uL (4.70-6.10); White Blood Count 14.66 K/ul (4.8-10.8)
[2025-02-12 14:35] LABS: Immature Granulocytes # (auto) 0.10 K/uL (0.01-0.20); Immature Granulocytes % (auto) 0.7 %
[2025-02-12] MEDS ORDERED: INSULIN ASPART PER UNIT CHARGE SC SCH ×2 (18:45→20:30)
[2025-02-12] MEDS ORDERED: PROPOFOL BOLUS FROM BAG IV PRN (19:58)
[2025-02-13 05:10] LABS: INR 1.7 (0.9-1.1); Prothrombin Time 17.0 Seconds (9.0-12.0)
[2025-02-13 05:12] LABS: Hematocrit (blood only) 37.3 % (42.0-52.0); Hemoglobin 12.1 g/dl (14.0-18.0); Mean Corpuscular Hemoglobin 30.4 pg (25.0-34.0); Mean Corpuscular Volume 93.7 fL (80.0-100.0); Platelet Count 134 K/uL (130-400); RDW Standard Deviation 53.3 fL (36.4-46.3); Red Blood Count 3.98 M/uL (4.70-6.10); White Blood Count 12.62 K/ul (4.8-10.8)
[2025-02-13 05:19] LABS: Alanine Aminotransferase 55.0 U/L (7-52); Albumin Globulin Ratio 0.8 (0.9-2); Albumin Level 2.2 gm/dl (3.4-5.0); Alkaline Phosphatase 87.0 U/L (34-104); Anion Gap 14.0 (3-11); Bilirubin,Total 1.1 mg/dl (0.2-1.0); Blood Urea Nitrogen 74.0 mg/dl (6-23); Calcium 7.0 mg/dl (8.6-10.3); Carbon Dioxide 23.0 mmol/L (21-32); Chloride 95.0 mmol/L (98-107); Creatine Kinase 6550.0 U/L (30-223); Globulin 2.9 gm/dl (2.5-4.0); Glucose 110.0 mg/dl (70-99(Fasting)); Magnesium 2.2 mg/dl (1.7-2.4); Sodium 132.0 mmol/L (136-145); Total Protein 5.1 gm/dl (6.0-8.3)
[2025-02-13 05:34] LABS: Creatinine Clr Calc Pharmacy 12.7 ml/min; Potassium 6.4 mmol/L (3.5-5.1)
[2025-02-13 05:37] LABS: Dohle Bodies 1+; Immature Granulocytes # (auto) 0.15 K/uL (0.01-0.20); Immature Granulocytes % (auto) 1.2 %; Polychromasia 1+; Toxic Granulation 1+; Toxic Vacuolation 1+
[2025-02-13] MEDS: INSULIN HUMAN REGULAR PER UNIT 10 UNITS in SYRINGE 9.9 ML IV ONE (05:55)
[2025-02-13] MEDS: CALCIUM CHLORIDE 10% 500 MG in DEXTROSE 5% 50 ML IV STA (05:55)
[2025-02-13] MEDS: DEXTROSE 50% 50 ML SYRINGE IV STA (05:55)
[2025-02-13 06:15] LABS: iSTAT Art Bld Gas Base Excess -3.0 mmol/L (-9-1.8); iSTAT Art Bld Gas pCO2 Correct 41 mmHg (35-46); iSTAT Art Bld Gas pH Corrected 7.354 (7.35-7.45); iSTAT Arterial Blood Gas pO2 C 118
--- NOTE | 2025-02-13 07:00 | Critical Care Progress Note ---
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 Waking up a little bit when sedation is lowered. Opens eyes to voice. On propofol due to myoclonic jerking and shivering. Continue fentanyl pushes as needed for analgesia/sedation. Cardiac: Status post cardiac arrest with bradycardia and ventricular arrhythmia on 02/11/2025, successful ROSC with 1 round CPR. Multiple pressors in place, norepinephrine and vasopressin. Has a right groin central venous catheter and left radial arterial line. Continue to titrate vasopressors, goal MAP 65 mmHg. Will need to trend lactic acid. Coming down slightly. Echo showing EF of 40 to 45% with moderate global hypokinesis, moderate RV dilation with moderately reduced function, moderate LA enlargement, severe RA enlargement, moderate aortic stenosis. Troponins are elevated, this is status post cardiac arrest however, EKG without acute changes, no need to trend at this time. Respiratory: Hypoxic hypercapnic respiratory failure. CT chest without contrast showing changes multifocal pneumonia. Extensive emphysema appreciated. On mechanical ventilation, intubated 02/11/2025. Sputum culture from ETT was pending. Viral PCR negative. MRSA nares negative. Continue mechanical ventilation, tidal volume 430, rate 24, PEEP 8, FiO2 currently 50% with a saturation of 93%. Titrate FiO2 down to a goal saturation of 90%. Albuterol nebulizers scheduled every 6. GI: Concern for upper and lower GI bleed per history however have not had any evidence of upper or lower GI bleeding at this time. Was on a PPI infusion however this was decreased to IV twice daily. INR is elevated. AST is elevated. Family denies any history of alcohol use. Continue PPI IV twice daily. Keep NG tube to low intermittent suction. Not overtly having upper or lower GI bleed since admission. Will continue to monitor and consider GI consultation. Monitor hemoglobin, transfuse for hemoglobin less than 7 or with rapid blood loss. Holding tube feeds given multiple pressors. RENAL/LYTES: Patient is in GILLIAN. Has mild hyperkalemia. Severe lactic acidosis and metabolic acidosis. Required bicarb infusion, now on Plasma-Lyte. CK is elevated, and rhabdo. Will need repeat CK in the morning. Keep Horowitz catheter in place, monitor strict I's and O's, urine output about 37 cc an hour overnight. Monitor and replace/correct electrolytes. Nephrology is consulted. Will consider dialysis today if renal function is not improved and if patient family is agreeable today. : Horowitz catheter was initially placed with only hemorrhagic fluid return. Was replaced without change in output from Horowitz. History of radical prostatectomy. CT abdomen and pelvis shows air circumferentially about the mucosal surface of the urinary bladder as well as within the wall of the bladder and air outside the bladder associated with fat stranding. Findings are concerning for emphysematous cystitis. Urology has been consulted. Requiring frequent flushing to clear blood clots from Horowitz catheter. Urology is following along, agree with antibiotics and Horowitz catheter. Holding off on procedures at this time. Believe that this is likely emphysematous cystitis. E. coli is growing. ENDO: Monitor glucose. History of diabetes with recent A1c of 6.1%. HEME: Hemoglobin acceptable at this time. Transfuse for hemoglobin less than 7, allow for higher transfusion limit if evidence of rapid bleeding and shock. Cell counts are down however this is likely delusional in setting of massive vo lume resuscitation and low urine output. Is having bleeding from the Horowitz catheter for which urology has been consulted. INR is slightly elevated, given lack of hemorrhage we will continue to monitor, no need to treat at this time. ID: Blood cultures with no growth to date. Urine culture with E. coli that is pansensitive. Sputum cultures pending. Procalcitonin remains very elevated. Will need repeated in the morning. Likely urologic infection in origin given CT findings in addition to pneumonia as seen on CT imaging. Viral PCR is negative. MRSA nares is negative. On vancomycin and cefepime. Stop vancomycin today. Feeding: Keep n.p.o. Fluids: Plasma-Lyte Analgesia: Fentanyl pushes as needed. Propofol. Activity: Bedrest Thromboprophylaxis: Place SCDs, avoid chemical prophylaxis in setting of active bleeding. Ulcer prophylaxis: On PPI IV twice daily Glycemic control: Monitor glucose. Indwelling catheters: Right groin central venous catheter placed emergently in the ER 02/11/2025, left radial A-line placed emergently in the emergency department 02/11/2025, ET tube, Horowitz catheter. Plan: Patient remain in the ICU. Critically ill with multiorgan dysfunction. Shock state, likely septic in setting of pneumonia as well as urologic infection. There is also concern for emphysematous cystitis versus bladder perforation. Urology has been consulted. Renal function is still very poor, nephrology is following along and will consider dialysis if there is no improvement. Family has been at bedside. The patient's niece is the MPOA based on legal documents that were signed by the patient and witness. I have personally spent 45 minutes of critical care time in the direct management of this patient. This is a life/limb threatening event. This includes time spent evaluating patient, direct bedside care, chart review, placing orders, interpretation of diagnostic studies, discussion with consultants, patient, and family members, as well as other required patient management activities. This time is exclusive of all separately billable procedures, and teaching time and separate from and in addition to any other critical care service time. Admission and Anticipated Discharge Date Admission Date: February 11, 2025 Subjective Past 24-hour events: Patient with minimal UOP overnight. Did have hyperkalemia but this may have been a lab error, repeat is much better after only getting HD. Making about 15-20 cc/hr urine, still with some clots but clearing slightly. Fevers overnight. Was having a of shivering. Started on propofol. Remains of levo and vaso. Rounding: On mechanical ventilation. No family present during my rounds. Intake: 5627 ml Output: 495 ml Net: 5132 ml net + Mechanical ventilation: Volume AC 430/24/8/50% Feeding: NPO IV infusions: Plasma-Lyte, norepinephrine, vaso, propofol Indwelling catheters: Groin CVC, radial A-line, ET tube, Horowitz catheter. Laboratory: CBC: WBC 12.6, hemoglobin 12.1, platelets 134 Chemistry: Sodium 134, potassium 5.4 after repeat, chloride 97, bicarb 23, anion gap 14, BUN 72, creatinine 5.05, glucose 169, lactic 2.1, calcium 7.1, magnesium 2.2, T. bili 1.1, AST 196, ALT 55, CK 6550, procalcitonin greater than 100. Micro: Urinalysis with pansensitive E. coli. Blood cultures no growth after 24 hours. Sputum culture pending. AB.35/41/118/23 and 98% Review of Systems Review of Systems: No able to be obtained. Physical Exam Physical Exam: Physical examination: General: Disheveled, intubated, frail-appearing. HEENT: Normocephalic, atraumatic. Extraocular movements intact. Sclera are nonicteric. No JVD appreciated. Rhinophyma appreciated. Skin: Warm and dry. No rashes appreciated. No jaundice appreciated. Cardiovascular: Sinus tachycardia, heart rate 117. Lungs: Coarse mechanical breath sounds, no wheezing appreciated. On mechanical ventilation with saturation of 93% on 50% FiO2 and a PEEP of 8. Abdomen: Flat. NG tube is in place. No guarding present this morning. Patient is on propofol. Musculoskeletal: Normal muscle mass and tone. No gross joint deformity abnormalities. No effusions appreciated. Neurologic: Restless in bed, some myoclonic jerking, opens eyes to voice. Moving all extremities. : Horowitz catheter is in place, pinkish colored fluid with some blood clots appreciated in Horowitz catheter. Results & Data Results & Data Vital Signs (Past 12 Hours) Vital Signs Temp Pulse Resp BP Pulse Ox O2 Del Method FiO2 02/13/25 06:11 50 02/13/25 04:00 60 02/13/25 03:20 77 24 97 60 02/13/25 03:15 37.4 C 77 24 98 02/13/25 03:15 99/65 L 02/13/25 03:15 99/65 L 02/13/25 03:15 99/65 L 02/13/25 03:00 107/67 02/13/25 02:51 37.5 C 76 24 99 02/13/25 02:45 37.5 C 74 24 99 02/13/25 02:33 37.5 C 78 24 99 02/13/25 02:30 97/64 L 02/13/25 02:15 37.6 C H 80 24 97 02/13/25 02:15 96/67 L 02/13/25 02:03 37.6 C H 79 24 97 02/13/25 02:00 103/65 02/13/25 01:45 107/65 02/13/25 01:45 37.7 C H 80 24 96 02/13/25 01:30 37.7 C H 85 34 H 93 02/13/25 01:30 122/79 02/13/25 01:18 37.8 C H 80 28 H 94 02/13/25 01:15 117/69 02/13/25 01:09 37.8 C H 82 28 H 95 02/13/25 01:03 37.8 C H 81 31 H 95 02/13/25 01:00 116/75 02/13/25 00:51 37.9 C H 81 33 H 96 02/13/25 00:45 111/70 02/13/25 00:33 37.9 C H 83 33 H 96 02/13/25 00:30 112/69 02/13/25 00:30 112/69 02/13/25 00:24 38.0 C H 83 27 H 97 02/13/25 00:15 104/74 02/13/25 00:15 104/74 02/13/25 00:12 38.0 C H 80 33 H 97 02/13/25 00:09 38.1 C H 82 26 H 96 02/13/25 00:00 85 02/13/25 00:00 60 02/12/25 23:51 38.2 C H 84 24 95 02/12/25 23:15 38.4 C H 85 24 94 02/12/25 23:12 38.4 C H 86 24 94 02/12/25 23:04 91 H 24 92 60 02/12/25 23:00 92/57 L 02/12/25 22:45 38.6 C H 86 24 91 02/12/25 22:36 38.6 C H 88 25 H 91 02/12/25 22:18 38.7 C H 89 25 H 90 02/12/25 22:12 38.8 C H 90 32 H 90 02/12/25 22:01 113/76 02/12/25 21:54 38.9 C H 94 H 28 H 02/12/25 21:30 Mechanical Vent 60 02/12/25 21:06 91 H 24 98 02/12/25 21:00 98/63 L 02/12/25 20:57 91 H 24 94 02/12/25 20:47 96/62 L 02/12/25 20:45 91 H 24 99 02/12/25 20:33 86/59 L 02/12/25 20:33 38.8 C H 92 H 24 97 02/12/25 20:25 79/49 L 02/12/25 20:18 38.8 C H 94 H 26 H 97 02/12/25 20:03 38.7 C H 93 H 29 H 97 02/12/25 20:00 123/103 H 02/12/25 20:00 60 02/12/25 19:57 38.8 C H 92 H 25 H 96 02/12/25 19:27 92 H 24 98 60 02/12/25 19:15 38.8 C H 90 24 98 02/12/25 19:00 105/63 Coding Level of Care Code 91067 CRITICAL CARE 1ST 30-74M Diagnoses Bradycardic cardiac arrest R00.1; I46.2 Respiratory failure J96.90 GILLIAN (acute kidney injury) N17.9 Hyperkalemia E87.5 AMS (altered mental status) R41.82 Shock R57.9 Ventricular arrhythmia I49.9 Lactic acid acidosis E87.20 Non-traumatic rhabdomyolysis M62.82 Rhabdomyolysis type: non-traumatic Emphysematous cystitis N30.80 (9) Rhabdomyolysis Rhabdomyolysis type: non-traumatic Qualified Code(s): M62.82 - Rhabdomyolysis
[2025-02-13 07:23] LABS: Anion Gap 14.0 (3-11); Blood Urea Nitrogen 72.0 mg/dl (6-23); Calcium 7.1 mg/dl (8.6-10.3); Carbon Dioxide 23.0 mmol/L (21-32); Chloride 97.0 mmol/L (98-107); Creatinine Clr Calc Pharmacy 12.6 ml/min; Glucose 169.0 mg/dl (70-99(Fasting)); Potassium 5.4 mmol/L (3.5-5.1); Sodium 134.0 mmol/L (136-145)
--- NOTE | 2025-02-13 07:45 | XRay Report ---
EXAM: XR chest 1V portable CLINICAL HISTORY: eval tubes/lines/lungfields TECHNIQUE: An X-ray image of the chest was obtained in the AP projection. 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 A nasogastric tube traverses the left side of the diaphragm and is in situ. Pulmonary Parenchyma: Bilateral pulmonary opacities are noted, which are more conspicuous and marked in the right lung, with a few ill-defined opacities in the left mid and lower zones. No evidence of pleural effusion or pleural thickening is seen. Cardiomegaly-stable. Bony Thorax: Old healed fractures are seen in the left 5th, 6th, and 7th posterior ribs. No acute fracture or deformity is seen. Soft Tissues: The soft tissues overlying the chest wall are unremarkable. IMPRESSION: The endotracheal tube is in situ, 3.7 cm above the janie. The nasogastric tube traverses the left side of the hemidiaphragm and is in situ. Bilateral pulmonary opacities, which are more conspicuous and marked in the right lung, with a few ill-defined opacities in the left mid and lower zones-stable. Cardiomegaly-stable. Electronically signed by Chuy Gutierrez 02-13-2025 07:45 AM
--- NOTE | 2025-02-13 08:54 | Nephrology Progress Note ---
Date of Service February 13, 2025 Assessment & Plan (1) GILLIAN (acute kidney injury): Plan: Non-oliguric. Isotonic fluids are being provided to help restore intravascular volume. CK slowly trending down. Horowitz draining gross hematuria. Creatinine stable at ~5.0 mg/dL. GILLIAN consistent with dehydration and hemodynamically mediated ATN. Anticipate a slow recovery. Electrolytes and volume status are acceptable but mild hyperkalemia was noted. Acidosis improved. Lactate trending down. There is no emergent indication for [employer] at this time. Repeat labs have been requested for this afternoon, if hyperkalemia persists or evidence that Khadar is not tolerating intravascular expansion, we may consider starting dialysis at that time. Empagliflozin, metformin, lisinopril, and diuretics have been appropriately held. Medications are currently appropriately dosed for kidney dysfunction. Vasopressors titrated to MAP ~65. Continue isotonic fluids as Rx. Document strict I/O's. Monitor serial metabolic profile at least twice daily. (2) Emphysematous cystitis: Plan: Culture + pansensitive E coli. Urology consultation appreciated. Remains on cefepime. CT does not demonstrate any evidence of obstruction. (3) Rhabdomyolysis: Plan: CK trending down. Atorvastatin held. Isotonic fluids are being provided. (4) Mixed acid base balance disorder: Plan: Improving with supportive care. Vasopressors titrated to MAP goal. Admission and Anticipated Discharge Date Admission Date: February 11, 2025 Subjective Sedated with propofol for agitation. Remains on vasopressor support with norepi + vaso gtt. Khadar remains ventilator dependent. Oxygenating well on PEEP 8 FIO2 50%. Non-oliguric (~590 ml of bloody urine in past 24 hours). Afebrile. Rate controlled atrial fibrillation on monitor with amiodarone infusing. No additional signs of GI bleeding reported. Review of Systems Review of Systems: Unobtainable due to cognitive status Physical Exam Constitutional: + ill appearing, + altered mental status and + mechanically ventilated Eyes: + anicteric sclerae Neck: normal visual inspection and trachea midline Respiratory: symmetric chest movement Auscultation: + bronchial breath sounds Cardiovascular: Rate/Rhythm: + tachycardic and + irregularly irregular Heart Sounds: normal S1 and normal S2 Extremities: no edema Gastrointestinal (Abdomen): Inspection/Auscultation: abdomen not distended Percussion/Palpation: abdomen soft Musculoskeletal: Extremities: no cyanosis and no clubbing Skin: + turgor decreased; no jaundice Results & Data Vital Signs (Past 12 Hours) Vital Signs Temp Pulse Resp BP Pulse Ox O2 Del Method FiO2 02/13/25 08:00 36.9 C 106 H 24 95 02/13/25 08:00 91/69 L 02/13/25 08:00 Mechanical Vent 50 02/13/25 08:00 60 02/13/25 07:42 36.9 C 108 H 25 H 92 02/13/25 07:30 95/71 L 02/13/25 07:05 91 H 24 94 60 02/13/25 07:03 36.9 C 101 H 25 H 94 02/13/25 07:00 96/78 L 02/13/25 06:11 50 02/13/25 04:00 60 02/13/25 03:20 77 24 97 60 02/13/25 03:15 37.4 C 77 24 98 02/13/25 03:15 99/65 L 02/13/25 03:15 99/65 L 02/13/25 03:15 99/65 L 02/13/25 03:00 107/67 02/13/25 02:51 37.5 C 76 24 99 02/13/25 02:45 37.5 C 74 24 99 02/13/25 02:33 37.5 C 78 24 99 02/13/25 02:30 97/64 L 02/13/25 02:15 37.6 C H 80 24 97 02/13/25 02:15 96/67 L 02/13/25 02:03 37.6 C H 79 24 97 02/13/25 02:00 103/65 02/13/25 01:45 107/65 02/13/25 01:45 37.7 C H 80 24 96 02/13/25 01:30 37.7 C H 85 34 H 93 02/13/25 01:30 122/79 02/13/25 01:18 37.8 C H 80 28 H 94 02/13/25 01:15 117/69 02/13/25 01:09 37.8 C H 82 28 H 95 02/13/25 01:03 37.8 C H 81 31 H 95 02/13/25 01:00 116/75 02/13/25 00:51 37.9 C H 81 33 H 96 02/13/25 00:45 111/70 02/13/25 00:33 37.9 C H 83 33 H 96 02/13/25 00:30 112/69 02/13/25 00:30 112/69 02/13/25 00:24 38.0 C H 83 27 H 97 02/13/25 00:15 104/74 02/13/25 00:15 104/74 02/13/25 00:12 38.0 C H 80 33 H 97 02/13/25 00:09 38.1 C H 82 26 H 96 02/13/25 00:00 85 02/13/25 00:00 60 02/12/25 23:51 38.2 C H 84 24 95 02/12/25 23:15 38.4 C H 85 24 94 02/12/25 23:12 38.4 C H 86 24 94 02/12/25 23:04 91 H 24 92 60 02/12/25 23:00 92/57 L 02/12/25 22:45 38.6 C H 86 24 91 02/12/25 22:36 38.6 C H 88 25 H 91 02/12/25 22:18 38.7 C H 89 25 H 90 02/12/25 22:12 38.8 C H 90 32 H 90 02/12/25 22:01 113/76 02/12/25 21:54 38.9 C H 94 H 28 H 02/12/25 21:30 Mechanical Vent 60 02/12/25 21:06 91 H 24 98 02/12/25 21:00 98/63 L 02/12/25 20:57 91 H 24 94 Laboratory Results Laboratory Results - last 24 hr 02/12/25 02/12/25 02/12/25 09:09 10:02 11:24 WBC RBC Hgb POC Hgb Hct POC Hct MCV MCH MCHC RDW Std Deviation RDW Coeff of Kayy Plt Count MPV Immature Gran % (Auto) Neut % (Auto) Lymph % (Auto) Baldwin % (Auto) Eos % (Auto) Baso % (Auto) Neut # (Auto) Lymph # (Auto) Baldwin # (Auto) Eos # (Auto) Baso # (Auto) Immature Gran # (Auto) Toxic Granulation Toxic Vacuolation Dohle Bodies Polychromasia Echinocytes PT INR Specimen Type Sample Site POC pH POC pCO2 POC pO2 POC HCO3 POC Total CO2 POC Base Excess O2 Sat Pulse Oximetry ABG pH (Temp Correct) ABG pCO2 (Temp Corrct POC ABG pO2 at Pt Temp POC ABG O2 Sat [place] Test O2 Delivery Device Vent Mode POC FiO2 End Tidal CO2 POC Sodium Sodium POC Potassium Potassium Chloride Carbon Dioxide Anion Gap BUN Creatinine Est Cr Clr Drug Dosing eGFR BUN/Creatinine Ratio Glucose POC Glucose (other) 136 H 109 H Lactate 2.8 H* Calcium Phosphorus Magnesium Total Bilirubin AST ALT Alkaline Phosphatase Ammonia Total Creatine Kinase Total Protein Albumin Globulin Albumin/Globulin Ratio Procalcitonin Random Vancomycin 02/12/25 02/12/25 02/12/25 13:20 16:43 20:54 WBC 14.66 H RBC 4.53 L Hgb 13.8 L POC Hgb Hct 42.1 POC Hct MCV 92.9 MCH 30.5 MCHC 32.8 RDW Std Deviation 52.8 H RDW Coeff of Kayy 15.3 H Plt Count 147 MPV 10.7 Immature Gran % (Auto) 0.7 Neut % (Auto) 91.7 Lymph % (Auto) 5.6 Baldwin % (Auto) 1.9 Eos % (Auto) 0.0 Baso % (Auto) 0.1 Neut # (Auto) 13.44 H Lymph # (Auto) 0.82 L Baldwin # (Auto) 0.28 Eos # (Auto) 0.00 Baso # (Auto) 0.02 Immature Gran # (Auto) 0.10 Toxic Granulation Toxic Vacuolation Dohle Bodies Polychromasia Echinocytes 3+ PT INR Specimen Type Sample Site POC pH POC pCO2 POC pO2 POC HCO3 POC Total CO2 POC Base Excess O2 Sat Pulse Oximetry ABG pH (Temp Correct) ABG pCO2 (Temp Corrct POC ABG pO2 at Pt Temp POC ABG O2 Sat [place] Test O2 Delivery Device Vent Mode POC FiO2 End Tidal CO2 POC Sodium Sodium POC Potassium Potassium Chloride Carbon Dioxide Anion Gap BUN Creatinine Est Cr Clr Drug Dosing eGFR BUN/Creatinine Ratio Glucose POC Glucose (other) 85 86 Lactate 2.7 H* Calcium Phosphorus Magnesium Total Bilirubin AST ALT Alkaline Phosphatase Ammonia Total Creatine Kinase Total Protein Albumin Globulin Albumin/Globulin Ratio Procalcitonin Random Vancomycin 02/12/25 02/13/25 02/13/25 23:53 03:43 04:17 WBC 12.62 H RBC 3.98 L Hgb 12.1 L POC Hgb Hct 37.3 L POC Hct MCV 93.7 MCH 30.4 MCHC 32.4 RDW Std Deviation 53.3 H RDW Coeff of Kayy 15.5 H Plt Count 134 MPV 11.5 Immature Gran % (Auto) 1.2 Neut % (Auto) 92.4 Lymph % (Auto) 3.4 Baldwin % (Auto) 2.9 Eos % (Auto) 0.0 Baso % (Auto) 0.1 Neut # (Auto) 11.67 H Lymph # (Auto) 0.43 L Baldwin # (Auto) 0.36 Eos # (Auto) 0.00 Baso # (Auto) 0.01 Immature Gran # (Auto) 0.15 Toxic Granulation 1+ Toxic Vacuolation 1+ Dohle Bodies 1+ Polychromasia 1+ Echinocytes 1+ PT 17.0 H INR 1.7 H Specimen Type Sample Site POC pH POC pCO2 POC pO2 POC HCO3 POC Total CO2 POC Base Excess O2 Sat Pulse Oximetry ABG pH (Temp Correct) ABG pCO2 (Temp Corrct POC ABG pO2 at Pt Temp POC ABG O2 Sat [place] Test O2 Delivery Device Vent Mode POC FiO2 End Tidal CO2 POC Sodium Sodium 132 L POC Potassium Potassium 6.4 H* D Chloride 95 L Carbon Dioxide 23 Anion Gap 14 H BUN 74 H Creatinine 5.03 H* Est Cr Clr Drug Dosing 12.7 eGFR 11.30 BUN/Creatinine Ratio 14.7 Glucose 110 H POC Glucose (other) 94 104 H Lactate Calcium 7.0 L Phosphorus 4.2 D Magnesium 2.2 Total Bilirubin 1.1 H AST 196 H ALT 55 H Alkaline Phosphatase 87 Ammonia 46.0 Total Creatine Kinase 6550 H Total Protein 5.1 L Albumin 2.2 L Globulin 2.9 Albumin/Globulin Ratio 0.8 L Procalcitonin > 100.00 H Random Vancomycin 10.9 02/13/25 02/13/25 02/13/25 06:01 06:48 06:51 WBC RBC Hgb POC Hgb 12.2 L Hct POC Hct 36 L MCV MCH MCHC RDW Std Deviation RDW Coeff of Kayy Plt Count MPV Immature Gran % (Auto) Neut % (Auto) Lymph % (Auto) Baldwin % (Auto) Eos % (Auto) Baso % (Auto) Neut # (Auto) Lymph # (Auto) Baldwin # (Auto) Eos # (Auto) Baso # (Auto) Immature Gran # (Auto) Toxic Granulation Toxic Vacuolation Dohle Bodies Polychromasia Echinocytes PT INR Specimen Type Arterial Sample Site Art Line POC pH 7.35 POC pCO2 41 POC pO2 118 H POC HCO3 23 POC Total CO2 24 POC Base Excess -3.0 O2 Sat Pulse Oximetry 98 ABG pH (Temp Correct) 7.354 ABG pCO2 (Temp Corrct 41 POC ABG pO2 at Pt Temp 118 POC ABG O2 Sat 98.0 H Anhum Test NA O2 Delivery Device Ventilator Vent Mode AC POC FiO2 60 End Tidal CO2 24 POC Sodium 132 L Sodium 134 L POC Potassium 6.3 H* Potassium 5.4 H Chloride 97 L Carbon Dioxide 23 Anion Gap 14 H BUN 72 H Creatinine 5.05 H* Est Cr Clr Drug Dosing 12.6 eGFR 11.24 BUN/Creatinine Ratio 14.3 Glucose 169 H POC Glucose (other) Lactate 2.1 H* Calcium 7.1 L Phosphorus Magnesium Total Bilirubin AST ALT Alkaline Phosphatase Ammonia Total Creatine Kinase Total Protein Albumin Globulin Albumin/Globulin Ratio Procalcitonin Random Vancomycin 02/13/25 07:33 WBC RBC Hgb POC Hgb Hct POC Hct MCV MCH MCHC RDW Std Deviation RDW Coeff of Kayy Plt Count MPV Immature Gran % (Auto) Neut % (Auto) Lymph % (Auto) Baldwin % (Auto) Eos % (Auto) Baso % (Auto) Neut # (Auto) Lymph # (Auto) Baldwin # (Auto) Eos # (Auto) Baso # (Auto) Immature Gran # (Auto) Toxic Granulation Toxic Vacuolation Dohle Bodies Polychromasia Echinocytes PT INR Specimen Type Sample Site POC pH POC pCO2 POC pO2 POC HCO3 POC Total CO2 POC Base Excess O2 Sat Pulse Oximetry ABG pH (Temp Correct) ABG pCO2 (Temp Corrct POC ABG pO2 at Pt Temp POC ABG O2 Sat [place] Test O2 Delivery Device Vent Mode POC FiO2 End Tidal CO2 POC Sodium Sodium POC Potassium Potassium Chloride Carbon Dioxide Anion Gap BUN Creatinine Est Cr Clr Drug Dosing eGFR BUN/Creatinine Ratio Glucose POC Glucose (other) 139 H Lactate Calcium Phosphorus Magnesium Total Bilirubin AST ALT Alkaline Phosphatase Ammonia Total Creatine Kinase Total Protein Albumin Globulin Albumin/Globulin Ratio Procalcitonin Random Vancomycin PG Care Time/CCT Total # of Minutes Spent Total Time Spent with Patient: Total time spent is greater than 50% in coordination of care (as documented) at patient's floor/unit and/or counseling patient: Coding Level of Care Code 32674 SUB INP/OBS CARE 3/50MIN Diagnoses GILLIAN (acute kidney injury) N17.9 Emphysematous cystitis N30.80 Non-traumatic rhabdomyolysis M62.82 Rhabdomyolysis type: non-traumatic Mixed acid base balance disorder E87.4 (3) Rhabdomyolysis Rhabdomyolysis type: non-traumatic Qualified Code(s): M62.82 - Rhabdomyolysis
--- NOTE | 2025-02-13 09:54 | Hospitalist Progress Note ---
Date of Service February 13, 2025 Assessment & Plan (1) Septic shock: Plan: Severe septic shock with acute end-organ (e.g., renal) failure (cf., admission creatinine 5.70, GFR 9.72 mL/min(02/11/2025, 2:45pm). Severe septic shock with acute end-organ (e.g., renal) failure, is due to (1) acute borrero-sensitive E. coli UTI (as noted on 02/11/2025, 5:49pm urine culture) and to (2) acute bibasilar, posterior RUL CAP (as noted on 02/11/2025, 3:29pm CT chest, abd, pelvis without IV contrast). Patient still requires dual pressor support with norepinephrine gtt and vasopressin gtt in order to maintain MAP > 65 mmHg. s/p cefepime 2g IV x 1 dose (02/11/2025, 3:16pm). s/p cefepime 1g IV q12 x 3 doses (02/12/2025, 3:19am; 02/12/2025, 2:14pm; 02/13/2025, 3:20am). Continue cefepime 1g IV q12 on 02/13/2025. Check vitals, chest exam, genito-urinary exam, WBC w/diff, lactic acid, procalcitonin, and blood culture #1 (02/11/2025, 7:21pm) in the 02/14/2025 am. (2) Emphysematous cystitis: Plan: Continue antibiotic therapy as noted in bullet #1 above. (3) Hemorrhage of genitourinary tract: Plan: Check Hb in the 02/14/2025 am, and reserve packed RBC transfusion for Hb level < 7 g/dL. (4) Horowitz catheter in place: Plan: Check urine output; strive to attain minimum urine output of 0.30 mL/kg/hrr. (5) Acute respiratory failure with hypoxia: Plan: Due to acute bibasilar, posterior RUL CAP (as noted on 02/11/2025, 3:29pm CT chest, abd, pelvis without IV contrast). Continue antibiotic therapy as noted in bullet #1 above. (6) Community acquired pneumonia: Plan: See bullet #1 above. (7) Cardiogenic shock: Plan: Due to cardiac arrest (in [facility] ER on admission date 02/11/2025), which in turn, was due to severe septic shock with acute end-organ (e.g., renal) failure (cf., admission creatinine 5.70, GFR 9.72 mL/min(02/11/2025, 2:45pm). Continue dual pressor support with norepinephrine gtt and vasopressin gtt in order to maintain MAP > 65 mmHg. (8) Bradycardic cardiac arrest: Plan: Continue amiodarone infusion @ 0.5mg/min, telemetry. (9) Type 2 myocardial infarction due to shock: Plan: Type 2 NSTEMI is due to demand ischemia, which in turn, is due to severe septic shock with acute end-organ (e.g., renal) failure (cf., admission creatinine 5.70, GFR 9.72 mL/min(02/11/2025, 2:45pm). (10) Acute renal failure: Plan: cf., creatinine 5.70, GFR 9.72 mL/min (02/11/2025, 2:45pm). cf., creatinine 5.09, GFR 11.14 mL/min (02/11/2025, 7:21pm). cf., creatinine 4.95, GFR 11.52 mL/min (02/12/2025, 12:18am). cf., creatinine 5.03, GFR 11.30 mL/min (02/13/2025, 4:17am). Etiology of acute renal failure is most probably due to acute tubular necrosis, which in turn, is due to severe septic shock with acute end-organ (e.g., renal) failure (cf., admission creatinine 5.70, GFR 9.72 mL/min(02/11/2025, 2:45pm). Continue rehydration therapy utilizing Plasma-Lyte A @ 200 mL/hr. Check repeat creatinine level in the 02/14/2025 am. (11) Rhabdomyolysis: Plan: cf., CK 7,822 U/L (02/11/2025, 7:21pm). cf., CK 6,550 U/L (02/13/2025, 4:17am). Etiology of acute rhabdomyolysis is most probably due to immobilization, which in turn, is due to severe septic shock with acute end-organ (e.g., renal) failure (cf., admission creatinine 5.70, GFR 9.72 mL/min(02/11/2025, 2:45pm). Continue rehydration therapy utilizing Plasma-Lyte A @ 200 mL/hr. Check repeat CK level in the 02/14/2025 am. (12) Neutrophilic leukocytosis: Plan: cf., WBC 19.72, N92 L3 M3, toxic vacuolation 1+ (02/11/2025, 7:21pm). cf., WBC 12.26, N93 L5 M1, toxic vacuolation 1+ (02/12/2025, 12:18am). cf., WBC 13.14, N91 L5 M3 B1, toxic vacuolation 1+, Dohle bodies 1+ (02/12/2025, 3:54am). cf., WBC 14.66 (02/12/2025, 1:20pm). cf., WBC 12.62, toxic vacuolation 1+, Dohle bodies 1+, toxic granules 1+ (02/13/2025, 4:17am). Etiology of acute rhabdomyolysis is most probably due to severe septic shock with acute end-organ (e.g., renal) failure (cf., admission creatinine 5.70, GFR 9.72 mL/min(02/11/2025, 2:45pm). Continue empiric antibiotics as described above in bullet #1. (13) Consumptive coagulopathy: Plan: cf., INR 1.7 (02/11/2025, 2:53pm). cf., INR 1.4 (02/11/2025, 7:21pm). cf., INR 1.6 (02/12/2025, 3:54pm). cf., INR 1.7 (02/13/2025, 4:17am). Etiology of consumptive coagulopathy is most probably due to severe septic shock with acute end-organ (e.g., renal) failure (cf., admission creatinine 5.70, GFR 9.72 mL/min(02/11/2025, 2:45pm). Check repeat INR in the 02/14/2025 am. (14) Endotracheally intubated: Plan: Defer to Critical Care Service. (15) Arterial line in place: Plan: Defer to Critical Care Service. Plan In summary this is a 74-year-old critically ill male who was brought to the [facility] after being found unresponsive at home; last known well was 02/08 #Primarily septic shock with subsequent cardiogenic shock // type II myocardial infarction // acute renal failure, likely prerenal // Consumptive coagulopathy On presentation, the patient was critically ill and then deteriorated further to a cardiac arrest requiring ACLS protocol; ROSC was achieved in the intensive care unit was contacted for evaluation; at this time his primary cause of shock appears to be septic given his found emphysematous cystitis discussed further below; no evidence of gastrointestinal pathology; given the patient's abnormal neurologic exam, an EEG was ordered overnight with results pending; would recommend we obtain an MRI as well once the patient is stable for such to rule out anoxic injury and/or additional ischemic pathology - Continue Cefepime 2 g IV twice daily for empiric antibiotic coverage - Continue Vancomycin with Pharmacy consultation to assist with dose - Continue to follow daily CBC with manual differential and CMP Intensive care consulted; will continue to primarily manage the patient's hemodynamic status Nephrology consulted for recommendations and anticipatory guidance given the patient's degree of renal failure; improving this morning, no indication for acute AUTO LOCATOR at this time; the patient's creatinine elevation may also be consequential of their associated nontraumatic rhabdomyolysis, rather than exclusively indicative of their GFR Patient's troponin is elevated, inevitably will remain elevated after chest compressions and resuscitation attempts; pending TTE #Emphysematous cystitis // Hemorrhage of genitourinary tract // Horowitz catheter in place Found on imaging and consistent with physical exam; continues with antibiotic therapy; Urine culture ordered but unsure if it will be able to yield growth given the density of hemorrhage - Maintain Horowitz catheter - Urology consulted #Abnormal CT chest // Questionable CAP versus aspiration pneumonitis versus aspiration pneumonia Patient required ET intubation on presentation due to progressive decline and associated arrest; initial plain films revealed scattered inflammatory changes, and CT chest shows similar inflammatory change in the basilar segments bilaterally; on exam, the patient's lungs are quite unremarkable for abnormal findings, suggesting more likely a pneumonitis pathology; nonetheless the patient's antibiotic coverage for their emphysematous cystitis is adequate for the noted bacterial pathologies on the differential - Remains intubated and mechanically ventilated; anticipate potential SBT this morning #Initial suspected gastrointestinal hemorrhage Serial assessment overnight and again this morning, there has been no evidence of gastrointestinal hemorrhage; suspect the initial evaluation by EMS was evidence of genitourinary hemorrhage with dried blood surrounding the rectum - Deescalated pantoprazole to 40 mg IV twice daily #Type II diabetes mellitus with hyperglycemia, not requiring insulin therapy Most recent A1c of 6.1%; given their critically ill state, goal to maintain serum glucose less than 180 - Pharmacy consulted for assistance with glycemic management Admission and Anticipated Discharge Date Admission Date: February 11, 2025 Subjective Unavailable as patient is non-verbal due to intubation and mechanical ventilation since undergoing cardiac arrest in [facility] ER on admission date 02/11/2025. Review of Systems Constitutional: Unavailable as patient is non-verbal due to intubation and mechanical ventilation since undergoing cardiac arrest in [facility] ER on admission date 02/11/2025. Physical Exam Constitutional: General: Comfortable. Non-verbal due to intubation and mechanical ventilation (e.g., A/C with TV430, RR 24, PEEP 8, FIO2 = 0.5 on 02/13/2025 since undergoing cardiac arrest in [facility] ER on admission date 02/11/2025. HEENT: NC/AT, PERRL. No nystagmus, gaze paresis, anisocoria, miosis, mydriasis, chemosis, hyphema, scleral injection, conjunctivitis, or pterygium. No otorrhea. No rhinorrhea. Neck: Supple, no stridor, bruit, or goiter. Jugular venous pressure 5cm above the sternal angle of Michael, which is typically 5 cm above the right atrium. Lymph: No anterior/posterior cervical lymphadenopathy, supraclavicular/infraclavicular lymphadenopathy, axilla/epitrochlear/inguinal l ymphadenopathy. Chest: Symmetric rise and fall with respirations. Non-tender to palpation. Heart: RRR, S1 and S2. No S3 or S4 summation gallop. No tripartite friction rub. Grade II/ early systolic murmur @ LLSB without radiation to the carotids, axilla, or back, and which remains invariant in regards to the respiratory cycle. Lungs: Clear to auscultation. No audible expiratory wheeze, egophony, pectoriloquy, increase in tactile fremitus, or flatness/dullness to percussion at the bases. Abd: Soft, non-tender, non-distended. Bowel sounds auscultated in all 4 quadrants. No rebound, guarding, Deras's sign, or organomegaly. Ext: No clubbing, cyanosis, or edema. 2+ pedal pulses bilaterally. Skin: No decubitus ulcer, exanthem, or enanthem. Neuro: No tremors, tics, or myoclonus Urology: Horowitz catheter with urine output 0.27 mL/kg/hr (02/12/2025, 7:18am to 02/12/2025, 7:18am). Results & Data Results & Data Vital Signs (Past 12 Hours) Vital Signs Temp Pulse Resp BP Pulse Ox O2 Del Method FiO2 02/13/25 08:00 36.9 C 106 H 24 95 02/13/25 08:00 91/69 L 02/13/25 08:00 Mechanical Vent 50 02/13/25 08:00 60 02/13/25 07:42 36.9 C 108 H 25 H 92 02/13/25 07:30 95/71 L 02/13/25 07:05 91 H 24 94 60 02/13/25 07:03 36.9 C 101 H 25 H 94 02/13/25 07:00 96/78 L 02/13/25 06:11 50 02/13/25 04:00 60 02/13/25 03:20 77 24 97 60 02/13/25 03:15 37.4 C 77 24 98 02/13/25 03:15 99/65 L 02/13/25 03:15 99/65 L 02/13/25 03:15 99/65 L 02/13/25 03:00 107/67 02/13/25 02:51 37.5 C 76 24 99 02/13/25 02:45 37.5 C 74 24 99 02/13/25 02:33 37.5 C 78 24 99 02/13/25 02:30 97/64 L 02/13/25 02:15 37.6 C H 80 24 97 02/13/25 02:15 96/67 L 02/13/25 02:03 37.6 C H 79 24 97 02/13/25 02:00 103/65 02/13/25 01:45 107/65 02/13/25 01:45 37.7 C H 80 24 96 02/13/25 01:30 37.7 C H 85 34 H 93 02/13/25 01:30 122/79 02/13/25 01:18 37.8 C H 80 28 H 94 02/13/25 01:15 117/69 02/13/25 01:09 37.8 C H 82 28 H 95 02/13/25 01:03 37.8 C H 81 31 H 95 02/13/25 01:00 116/75 02/13/25 00:51 37.9 C H 81 33 H 96 02/13/25 00:45 111/70 02/13/25 00:33 37.9 C H 83 33 H 96 02/13/25 00:30 112/69 02/13/25 00:30 112/69 02/13/25 00:24 38.0 C H 83 27 H 97 02/13/25 00:15 104/74 02/13/25 00:15 104/74 02/13/25 00:12 38.0 C H 80 33 H 97 02/13/25 00:09 38.1 C H 82 26 H 96 02/13/25 00:00 85 02/13/25 00:00 60 02/12/25 23:51 38.2 C H 84 24 95 02/12/25 23:15 38.4 C H 85 24 94 02/12/25 23:12 38.4 C H 86 24 94 02/12/25 23:04 91 H 24 92 60 02/12/25 23:00 92/57 L 02/12/25 22:45 38.6 C H 86 24 91 02/12/25 22:36 38.6 C H 88 25 H 91 02/12/25 22:18 38.7 C H 89 25 H 90 02/12/25 22:12 38.8 C H 90 32 H 90 02/12/25 22:01 113/76 02/12/25 21:54 38.9 C H 94 H 28 H Laboratory Results WBC 19.72, N92 L3 M3, toxic vacuolation 1+ Hb 14.8, MCV 96.3, MCHC 31.2, platelet 199 (02/11/2025, 7:21pm). WBC 12.26, N93 L5 M1, toxic vacuolation 1+, Hb 14.3, MCV 93.2, MCHC 32.4, platelet 164 (02/12/2025, 12:18am). WBC 13.14, N91 L5 M3 B1, toxic vacuolation 1+, Dohle bodies 1+, Hb 13.7, MCV 92.4, MCHC 32.9, platelet 163 (02/12/2025, 3:54am). WBC 14.66, Hb 13.8, MCV 92.9, MCHC 32.8, platelet 147 (02/12/2025, 1:20pm). WBC 12.62, toxic vacuolation 1+, Dohle bodies 1+, toxic granules 1+, Hb 12.1, MCV 93.7, MCHC 32.4, platelet 134 (02/13/2025, 4:17am). Urine culture (02/11/2025, 5:49pm): borerro-sensitive E. coli Blood culture #1 (02/11/2025, 7:21pm): no growth to date Sputum culture (02/11/2025, ? time): no growth to date creatinine 5.70, GFR 9.72 mL/min (02/11/2025, 2:45pm). creatinine 5.09, GFR 11.14 mL/min (02/11/2025, 7:21pm). creatinine 4.95, GFR 11.52 mL/min (02/12/2025, 12:18am). Na 132, K 6.4, BUN 74, creatinine 5.03, GFR 11.30 mL/min, AST 196, ALT 55, ALK PHOS 87, TBili 1.1 (02/13/2025, 4:17am). Na 132, K 6.3 (02/13/2025, 6:01am). Na 134, K 5.4, BUN 72, creatinine 5.05 GFR 11.24 mL/min (02/13/2025, 6:48am). cf., baseline creatinine range, 0.89 (04/19/2024, 6:04am) to 1.26 (01/04/2025, 7:19am). CK 7,822 U/L (02/11/2025, 7:21pm). CK 6,550 U/L (02/13/2025, 4:17am). Procalcitonin #1 > 100.0 ng/mL (02/11/2025, 2:53pm). Procalcitonin #2 > 100.0 ng/mL (02/13/2025, 4:17am). Lactic acid #1 2.7 mmol/L (02/12/2025, 1:20pm). Lactic acid #2 2.1 mmol/L (02/13/2025, 6:51am). Diagnostic Findings CT chest, abdomen, and pelvis without IV contrast (02/11/2025, 3:29pm): 1. Patchy opacities throughout the lower lobes and posterior right upper lobe, are favored infectious. 2. Foci of air are seen circumferentially about the mucosal surface of the urinary bladder, as well as within the wall. Patchy foci of free air also appear to be seen outside the urinary bladder associated with fat stranding, and are confined to the extraperitoneal space, and are likely urinary bladder in origin. A bowel perforation seems less likely. The findings are suspicious for emphysematous cystitis. Portable CXR (02/11/2025, 3:38pm): 1. Endotracheal tube tip is 4 cm above the janie. Otherwise stable. Portable CXR (02/12/2025, 6:00am): 1. The endotracheal tube is in situ, 3.2 cm above the janie. 2. Nasogastric tube traverses the left side of the hemidiaphragm and is in situ. 3. Bilateral pulmonary opacities are more conspicuous and marked in the right lung, with a few ill-defined opacities in the left mid and lower zones. These findings may be due to an inflammatory or infectious process. 4. Clinical and laboratory correlation is suggested. 5. Compared with the CT dated 02/11/2025, no interval changes are noted. Portable CXR (02/13/2025, 6:00am): 1. The endotracheal tube is in situ, 3.7 cm above the janie. 2. The nasogastric tube traverses the left side of the hemidiaphragm and is in situ. 3. Bilateral pulmonary opacities, which are more conspicuous and marked in the right lung, with a few ill-defined opacities in the left mid and lower zones- stable. 4. Cardiomegaly-stable. TTE (02/12/2025, 9:43pm): 1. LVEF 40-45%. Moderate concentric LVH. Mild-moderate global hypokinesis of LV. 2. RV moderately dilated with RV systolic function moderately reduced. 3. No significant AR. Moderate with JASON 1.0 cm2 (using continuity equation). V2 max 308.9 cm/sec consistent with moderate . 4. PV not well visualized. No significant DE. 5. Mild MR. 6. Trace TR. RVSP normal. 7. Aortic root normal size. Normal IVC size and collapsibility with sniff indicates normal RAP 3mm Hg. 8. No pericardial effusion. (as per CARDS Dr. Natan Alvarado). TTE (07/31/2020, 11:15am): 1. LVEF 40-45%. Basal inferior wall akinesis. Moderate global hypokinesis. 2. RV mildly dilated. RV systolic function normal. 3. RA moderate-severely dilated. 4. Sclerotic AV without significant stenosis. 5. No MS. 6. Anatomically normal TV. 7. PV not well visualized. 8. Aortic root not well visualized. Ascending aorta and aortic arch normal size. 9. IVC normal size with normal collapsibility index. 10.No pericardial effusion. (as per CARDS Dr. Rubio Gray). PG Care Time/CCT Total # of Minutes Spent Total Time Spent with Patient: Total time spent is greater than 50% in coordination of care (as documented) at patient's floor/unit and/or counseling patient: Coding Level of Care Code 53444 SUB INP/OBS CARE 3/50MIN Diagnoses Septic shock A41.9; R65.21 Emphysematous cystitis N30.80 Hemorrhage of genitourinary tract R31.[address] Z97.8 Acute respiratory failure with hypoxia J96.01 Community acquired pneumonia, unspecified laterality J18.9 Laterality: unspecified laterality Cardiogenic shock R57.0 Bradycardic cardiac arrest R00.1; I46.2 Type 2 myocardial infarction due to shock R57.9; I21.A1 Acute renal failure, unspecified acute renal failure type N17.9 Acute renal failure type: unspecified Non-traumatic rhabdomyolysis M62.82 Rhabdomyolysis type: non-traumatic Neutrophilic leukocytosis D72.828 Consumptive coagulopathy D65 Endotracheally intubated Z97.[address] Z95.828 (6) Community acquired pneumonia Laterality: unspecified laterality Qualified Code(s): J18.9 - Pneumonia, unspecified organism (10) Acute renal failure Acute renal failure type: unspecified Qualified Code(s): N17.9 - Acute kidney failure, unspecified (11) Rhabdomyolysis Rhabdomyolysis type: non-traumatic Qualified Code(s): M62.82 - Rhabdomyolysis
[2025-02-13 11:04] LABS: Hep B Surface Ag with confirm Negative (Negative)
[2025-02-13] MEDS: ALBUTEROL 0.083% NEBU SOLN 3 ML VIAL NEB SCH (11:20)
[2025-02-13] MEDS: INSULIN ASPART PER UNIT CHARGE SC SCH (11:45)
[2025-02-13 13:55] LABS: Anion Gap 14.0 (3-11); Blood Urea Nitrogen 72.0 mg/dl (6-23); Calcium 7.0 mg/dl (8.6-10.3); Carbon Dioxide 24.0 mmol/L (21-32); Chloride 96.0 mmol/L (98-107); Creatinine Clr Calc Pharmacy 13.0 ml/min; Glucose 132.0 mg/dl (70-99(Fasting)); Potassium 6.1 mmol/L (3.5-5.1); Sodium 134.0 mmol/L (136-145)
--- NOTE | 2025-02-13 14:15 | Urology Progress Note ---
<Statement entered by Ted Jones MD - 02/13/25 14:33> Chart reviewed plan reviewed discussed and agree as written. Date of Service February 13, 2025 Assessment & Plan (1) Emphysematous cystitis: (2) Hematuria: Plan 74yo critically ill male who is intubated in the ICU with multiorgan dysfunction and sepsis in setting of pneumonia and urologic infection - Urology consulted for hematuria and air in/around the bladder on CT imaging - Remains intubated in ICU on pressor support. - Labs -WBCs 12.62, Hemoglobin 12.1, Creatinine 4.91. - CT noted air circumferentially extending along the mucosal surface of the bladder wall internally, inside the wall, and above the urinary bladder which appears to be in the extraperitoneal space surrounded by inflammatory fat stranding. No stones or hydronephrosis. - Air likely from catheterization and emphysematous cystitis, possibly a fistula. Was question of bladder perf which seems less likely. If ongoing concern, could consider a cystogram in a few days pending patient clinical status and patient/family goals/wishes. - No intervention indicated at this time. - Horowitz currently intact and draining light red urine, minimal output. - Catheter was flushed without difficulty and bladder scanned for 25ml this morning by nursing staff. - Continue Horowitz catheter and monitor output. - OK to hand irrigate the catheter as needed for clots/obstruction. Bladder scan PRN. - Urology can manage hematuria as needed. - Urine culture grew E.coli, pansensitive. - Blood cultures prelim no growth x 24 hour. - Continue antibiotic therapy and tailor per culture sensitivities. - Continue supportive care and management per primary team. - will follow- please contact us with any questions/concerns or changes in patient status. Admission and Anticipated Discharge Date Admission Date: February 11, 2025 Subjective Patient seen at bedside this morning. Remains intubated in the ICU on vasopressor support. Horowitz draining light red urine. Had minimal output overnight (~145ml). Catheter was flushed without difficulty per nursing. Pt was bladder scanned for 25ml. Review of Systems Constitutional: as per Subjective / HPI Genitourinary: + as per Subjective / HPI Physical Exam Constitutional: + ill appearing and + mechanically venti lated ENMT: ETT Genitourinary: Horowitz draining with minimal light red urine Results & Data Vital Signs (Past 12 Hours) Vital Signs Temp Pulse Resp BP Pulse Ox O2 Del Method FiO2 02/13/25 13:00 37.1 C 102 H 32 H 94 02/13/25 12:03 37.1 C 104 H 28 H 94 02/13/25 12:00 108/80 02/13/25 12:00 50 02/13/25 11:54 37.1 C 100 H 29 H 96 02/13/25 11:06 37.1 C 106 H 26 H 97 02/13/25 11:00 102/72 02/13/25 10:54 37.1 C 86 24 97 02/13/25 10:06 37.1 C 97 H 24 97 02/13/25 10:00 104/69 02/13/25 09:48 37.1 C 88 24 97 02/13/25 09:09 37.1 C 89 24 96 02/13/25 08:00 36.9 C 106 H 24 95 02/13/25 08:00 91/69 L 02/13/25 08:00 Mechanical Vent 50 02/13/25 08:00 60 02/13/25 07:42 36.9 C 108 H 25 H 92 02/13/25 07:30 95/71 L 02/13/25 07:05 91 H 24 94 60 02/13/25 07:03 36.9 C 101 H 25 H 94 02/13/25 07:00 96/78 L 02/13/25 06:11 50 02/13/25 04:00 60 02/13/25 03:20 77 24 97 60 02/13/25 03:15 37.4 C 77 24 98 02/13/25 03:15 99/65 L 02/13/25 03:15 99/65 L 02/13/25 03:15 99/65 L 02/13/25 03:00 107/67 02/13/25 02:51 37.5 C 76 24 99 02/13/25 02:45 37.5 C 74 24 99 02/13/25 02:33 37.5 C 78 24 99 02/13/25 02:30 97/64 L 02/13/25 02:15 37.6 C H 80 24 97 02/13/25 02:15 96/67 L PG Care Time/CCT Total # of Minutes Spent Total Time Spent with Patient: Total time spent is greater than 50% in coordination of care (as documented) at patient's floor/unit and/or counseling patient: Coding Level of Care Code 42397 SUB INP/OBS CARE MIN Diagnoses 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
[2025-02-13] MEDS: FUROSEMIDE 40 MG/4 ML VIAL IV ONE (14:56)
[2025-02-13] MEDS: SODIUM ZIRCONIUM CYCLOSILICATE 10 GM PACKET PO SCH (14:57)
[2025-02-13 21:15] LABS: Anion Gap 16.0 (3-11); Blood Urea Nitrogen 77.0 mg/dl (6-23); Calcium 6.9 mg/dl (8.6-10.3); Carbon Dioxide 22.0 mmol/L (21-32); Chloride 95.0 mmol/L (98-107); Creatinine Clr Calc Pharmacy 12.9 ml/min; Glucose 129.0 mg/dl (70-99(Fasting)); Potassium 5.6 mmol/L (3.5-5.1); Sodium 133.0 mmol/L (136-145)
[2025-02-14 04:53] LABS: Hematocrit (blood only) 32.3 % (42.0-52.0); Hemoglobin 10.7 g/dl (14.0-18.0); Mean Corpuscular Hemoglobin 30.7 pg (25.0-34.0); Mean Corpuscular Volume 92.6 fL (80.0-100.0); Platelet Count 103 K/uL (130-400); RDW Standard Deviation 53.4 fL (36.4-46.3); Red Blood Count 3.49 M/uL (4.70-6.10); White Blood Count 10.33 K/ul (4.8-10.8)
[2025-02-14 05:10] LABS: Dohle Bodies 1+; INR 1.2 (0.9-1.1); Immature Granulocytes # (auto) 0.08 K/uL (0.01-0.20); Immature Granulocytes % (auto) 0.8 %; Polychromasia 1+; Prothrombin Time 12.4 Seconds (9.0-12.0); Toxic Granulation 1+
[2025-02-14 05:18] LABS: Alanine Aminotransferase 40.0 U/L (7-52); Albumin Globulin Ratio 0.6 (0.9-2); Albumin Level 1.9 gm/dl (3.4-5.0); Alkaline Phosphatase 91.0 U/L (34-104); Anion Gap 19.0 (3-11); Bilirubin,Total 0.7 mg/dl (0.2-1.0); Blood Urea Nitrogen 76.0 mg/dl (6-23); Calcium 6.6 mg/dl (8.6-10.3); Carbon Dioxide 21.0 mmol/L (21-32); Chloride 94.0 mmol/L (98-107); Creatine Kinase 3352.0 U/L (30-223); Creatinine Clr Calc Pharmacy 12.5 ml/min; Globulin 3.0 gm/dl (2.5-4.0); Glucose 146.0 mg/dl (70-99(Fasting)); Magnesium 2.4 mg/dl (1.7-2.4); Potassium 5.2 mmol/L (3.5-5.1); Sodium 134.0 mmol/L (136-145); Total Protein 4.9 gm/dl (6.0-8.3)
--- NOTE | 2025-02-14 07:25 | Critical Care Progress Note ---
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 Waking up a little bit when sedation is lowered. Opens eyes to voice. On propofol due to myoclonic jerking and shivering. Continue fentanyl pushes as needed for analgesia/sedation. Cardiac: Status post cardiac arrest with bradycardia and ventricular arrhythmia on 02/11/2025, successful ROSC with 1 round CPR. Shock state is improving. Now only requiring vaso. Has a right groin central venous catheter and left radial arterial line. Continue to titrate vasopressors, goal MAP 65 mmHg. Lactic acidosis is also resolved. Echo showing EF of 40 to 45% with moderate global hypokinesis, moderate RV dilation with moderately reduced function, moderate LA enlargement, severe RA enlargement, moderate aortic stenosis. Troponins are elevated, this is status post cardiac arrest however, EKG without acute changes, no need to trend at this time. Respiratory: Hypoxic hypercapnic respiratory failure. CT chest without contrast showing changes multifocal pneumonia. Extensive emphysema appreciated. Chest x-ray now showing pulmonary edema on top of pneumonia. On mechanical ventilation, intubated 02/11/2025. Sputum culture from ETT was pending. Viral PCR negative. MRSA nares negative. Continue mechanical ventilation, tidal volume 430, rate 20, PEEP 5, FiO2 40% with a saturation of 95%. Titrate FiO2 down to a goal saturation of 90%. Albuterol nebulizers scheduled every 6. ET tube secretions with light normal luci. GI: Concern for GI bleed coming have melanotic stools that are occult positive. Hemoglobin downtrending slightly. Was on a PPI infusion however this was decreased to IV twice daily. INR is elevated. AST is elevated. Family denies any history of alcohol use. Continue PPI IV twice daily. Will consult gastroenterology. Monitor hemoglobin, transfuse for hemoglobin less than 7 or with rapid blood loss. Feeds have been on hold, he is only requiring vaso, if GI does not plan for intervention then we can initiate tube feeds today. RENAL/LYTES: Patient is in GILLIAN. Electrolytes are okay today. Lactic acid has normalized. CK is elevated, and rhabdo. CK is now downtrending so we will stop monitoring this. Keep Horowitz catheter in place, monitor strict I's and O's, urine output about 37 cc an hour overnight. Monitor and replace/correct electrolytes. Nephrology is consulted. Patient responded to Lasix yesterday, we gave an additional 80 today and he responded to this. Will consider scheduling every 6 hours. : Horowitz catheter was initially placed with only hemorrhagic fluid return. Was replaced without change in output from Horowitz. History of radical prostatectomy. CT abdomen and pelvis shows air circumferentially about the mucosal surface of the urinary bladder as well as within the wall of the bladder and air outside the bladder associated with fat stranding. Findings are concerning for emphysematous cystitis. Urology has been consulted. Hematuria has stopped. Clear yellow urine is now visualized. Urology is following along, agree with antibiotics and Horowitz catheter. Holding off on procedures at this time. Believe that this is likely emphysematous cystitis. E. coli is growing. ENDO: Monitor glucose. History of diabetes with recent A1c of 6.1%. HEME: All some lines are trending down, and having GI bleeding as well. Hematuria stopped. Transfuse for hemoglobin less than 7, allow for higher transfusion limit if evidence of rapid bleeding and shock. Cell counts are down however this is likely delusional in setting of massive volume resuscitation and low urine output. INR is slightly elevated, given lack of hemorrhage we will continue to monitor, no need to treat at this time. ID: Blood cultures with no growth to date. Urine culture with E. coli that is pansensitive. Sputum with normal respiratory luci. Procalcitonin remains very elevated. Will need repeated in the morning. Likely urologic infection in origin given CT findings in addition to pneumonia as seen on CT imaging. Viral PCR is negative. MRSA nares is negative. On vancomycin and cefepime. Vancomycin stopped 02/13/2025. Will consider de- escalating to Rocephin. Feeding: N.p.o., GI is consulted, will consider starting trickle feeds Fluids: Plasma-Lyte 1 time an hour Analgesia: Fentanyl pushes as needed. Propofol. Activity: Bedrest Thromboprophylaxis: Place SCDs, avoid chemical prophylaxis in setting of active bleeding. Ulcer prophylaxis: On PPI IV twice daily Glycemic control: Monitor glucose. Indwelling catheters: Right groin central venous catheter placed emergently in the ER 02/11/2025, left radial A-line placed emergently in the emergency department 02/11/2025, ET tube, Horowitz catheter. Plan: Patient remain in the ICU. Critically ill with multiorgan dysfunction. Shock state, likely septic in setting of pneumonia as well as urologic infection. There is also concern for emphysematous cystitis versus bladder perforation. Urology has been consulted. Renal function is still very poor, nephrology is following along, patient did respond to Lasix. Significantly more pulmonary edema. His oxygenation is improved however he is not a candidate for extubation today based on his imaging. He will need to be diuresed aggressively prior to extubation. Can try waking him up a little bit today and do CPAP if he tolerates it. I have personally spent 45 minutes of critical care time in the direct management of this patient. This is a life/limb threatening event. This includes time spent evaluating patient, direct bedside care, chart review, placing orders, interpretation of diagnostic studies, discussion with consultants, patient, and family members, as well as other required patient management activities. This time is exclusive of all separately billable procedures, and teaching time and separate from and in addition to any other critical care service time. Admission and Anticipated Discharge Date Admission Date: February 11, 2025 Subjective Past 24-hour events: Was able to be weaned off of norepinephrine. Remains on vasopressin. Received a dose of Lasix yesterday with a moderate response to 60 mg. Plasma-Lyte decreased to 110 an hour Lactic acid has normalized. Rounding: Administered an additional 80 mg of Lasix this morning. Had 100 cc of urine output after this. Giving 2 g calcium gluconate Patient is now having dark melanotic stools, these are occult positive. Hemoglobin is down along with all cell lines, probably having some blood loss from GI and also delusional given massive volume resuscitation. Remains on PPI IV twice daily. Intake: 5668 mL Output: 710 mL Net: Positive for 958 mL Mechanical ventilation: On mechanical ventilation, volume AC, FiO2 40%, PEEP 5, respiratory rate 24 (decreased to 20), tidal volume 430 Feeding: Will initiate tube feeds today IV infusions: Plasma-Lyte, vasopressin, propofol Indwelling catheters: Horowitz, ET tube, central venous catheter, arterial line Laboratory: CBC: WBC 10.3, hemoglobin 10.7, platelet 103, Chemistry: Sodium 134, potassium 5.2, chloride 94, bicarb 21, anion gap 19, bun 76, creatinine 5.10, phosphorus 4.7, calcium 6.6, AST 105, ALT 40, total CK3 352, procalcitonin greater than 100 AB.35/39/75/22 with a oxygen saturation of 95% on 40% FiO2 and PEEP of 8, ventilator adjusted, respiratory rate decreased to 20, PEEP decreased to 5 Review of Systems Review of Systems: No able to be obtained. Physical Exam Physical Exam: Physical examination: General: Disheveled, intubated, frail-appearing. HEENT: Normocephalic, atraumatic. Extraocular movements intact. Sclera are nonicteric. No JVD appreciated. Rhinophyma appreciated. Skin: Warm and dry. No rashes appreciated. No jaundice appreciated. Cardiovascular: Sinus rhythm, no murmurs appreciated. Lungs: Coarse mechanical breath sounds, no wheezing appreciated. On mechanical ventilation with saturation of 95% on 40% FiO2 and a PEEP of 5. Abdomen: Flat. NG tube is in place. No guarding present this morning. Patient is on propofol. Having melanotic stool output. Musculoskeletal: Normal muscle mass and tone. No gross joint deformity abnormalities. No effusions appreciated. Neurologic: Restless in bed, some myoclonic jerking, opens eyes to voice. Moving all extremities. : Horowitz catheter is in place, clear yellow urine visualized in the Horowitz catheter. Has genital warts. Results & Data Results & Data Vital Signs (Past 12 Hours) Vital Signs Temp Pulse Resp BP Pulse Ox O2 Del Method FiO2 02/14/25 04:00 40 02/14/25 04:00 36.5 C 92 H 24 82/65 L 96 Mechanical Vent 40 10/16/25 03:34 96 H 24 96 40 02/14/25 03:00 36.5 C 99 H 24 89/67 L 96 Mechanical Vent 40 02/14/25 02:21 36.5 C 98 H 28 H 96 02/14/25 02:06 36.5 C 112 H 30 H 95 02/14/25 01:48 36.5 C 100 H 27 H 95 02/14/25 01:30 36.5 C 106 H 27 H 96 02/14/25 01:00 96/77 L 02/14/25 01:00 36.5 C 96 H 27 H 95 02/14/25 00:31 105 H 24 96 40 02/14/25 00:30 36.6 C 100 H 27 H 97 02/14/25 00:18 36.6 C 107 H 27 H 98 02/14/25 00:00 36.6 C 103 H 26 H 97 02/14/25 00:00 104/74 02/14/25 00:00 50 02/13/25 23:45 36.7 C 101 H 25 H 98 02/13/25 23:30 36.7 C 95 H 24 98 02/13/25 23:15 36.7 C 106 H 24 98 02/13/25 23:00 36.8 C 85 24 98 02/13/25 22:51 36.8 C 92 H 24 98 02/13/25 22:48 95 H 02/13/25 22:36 36.8 C 97 H 24 97 02/13/25 22:21 36.9 C 94 H 24 96 02/13/25 22:00 94/74 L 02/13/25 22:00 36.9 C 98 H 24 96 02/13/25 21:45 36.9 C 98 H 25 H 96 02/13/25 21:30 37.0 C 95 H 28 H 97 02/13/25 21:15 37.0 C 101 H 27 H 97 02/13/25 21:00 102/73 02/13/25 21:00 37.0 C 105 H 27 H 97 02/13/25 20:45 37.1 C 92 H 27 H 97 02/13/25 20:40 96 H 27 H 96 50 02/13/25 20:30 37.1 C 101 H 26 H 98 02/13/25 20:18 37.1 C 97 H 29 H 95 02/13/25 20:01 110/79 02/13/25 20:00 37.1 C 36 H 97 02/13/25 20:00 Mechanical Vent 50 02/13/25 20:00 50 02/13/25 19:51 37.1 C 104 H 33 H 97 02/13/25 19:36 37.1 C 101 H 30 H 97 Coding Level of Care Code 33802 CRITICAL CARE 1ST 30-74M Diagnoses Bradycardic cardiac arrest R00.1; I46.2 Respiratory failure J96.90 GILLIAN (acute kidney injury) N17.9 Hyperkalemia E87.5 AMS (altered mental status) R41.82 Shock R57.9 Ventricular arrhythmia I49.9 Lactic acid acidosis E87.20 Non-traumatic rhabdomyolysis M62.82 Rhabdomyolysis type: non-traumatic Emphysematous cystitis N30.80 (9) Rhabdomyolysis Rhabdomyolysis type: non-traumatic Qualified Code(s): M62.82 - Rhabdomyolysis
--- NOTE | 2025-02-14 07:29 | XRay Report ---
EXAM: XR chest 1V portable CLINICAL HISTORY: eval tubes/lines/lung sheth TECHNIQUE: An X-ray image of the chest was obtained in the AP projection. COMPARISON: 06:02:39 [employer] DIRECT[employer] FINDINGS: An endotracheal tube is in situ, 0.8 cm above the janie; needs to be pulled back. A nasogastric tube traverses the left side of the diaphragm and is in situ. Pulmonary Parenchyma: Bilateral pulmonary opacities are noted, which are more conspicuous and marked in the right lung, with a few ill-defined opacities in the left mid and lower zones. Obscured left pleural recess-stable. Obscured right pleural recess-new finding. Cardiomegaly is stable. Bony Thorax: Old, healed fractures are seen in the left 5th, 6th, and 7th posterior ribs. No acute fracture or deformity is seen. Soft Tissues: The soft tissues overlying the chest wall are unremarkable. IMPRESSION: An endotracheal tube is in situ, 0.8 cm above the janie; needs repositioning. The nasogastric tube traverses to the left side of the hemidiaphragm. Bilateral pulmonary opacities, which are more conspicuous and marked in the right lung, with a few ill-defined opacities in the left mid and lower zones, are stable. Cardiomegaly is stable. Obscured left pleural recess-stable. Obscured right pleural recess-new finding. Electronically signed by Chuy Gutierrez 02-14-2025 07:28 AM
[2025-02-14] MEDS: FUROSEMIDE 40 MG/4 ML VIAL IV ONE (07:42)
[2025-02-14] MEDS: CALCIUM GLUCONATE 1,000 MG/60 ML BAG IV SCH (07:52)
[2025-02-14 08:15] LABS: iSTAT Art Bld Gas Base Excess -4.0 mmol/L (-9-1.8); iSTAT Art Bld Gas pCO2 Correct 38 mmHg (35-46); iSTAT Art Bld Gas pH Corrected 7.362 (7.35-7.45); iSTAT Arterial Blood Gas pO2 C 72
--- NOTE | 2025-02-14 09:13 | Nephrology Progress Note ---
Date of Service February 14, 2025 Assessment & Plan (1) GILLIAN (acute kidney injury): Plan: Non-oliguric. Isotonic fluids are being weaned off to reduce obligatory intake. BP improving. Levophed weaned off. Third spacing of fluid and pulmonary edema have increased but intravascular volume and UOP have improved. Kahdar is oxygenating reasonably well. An additional 80 mg IV furosemide has been provided. Monitor UOP and document strict I/O's. Hyperkalemia improved with treatment and electrolytes are acceptable. There is no emergent indication for dialysis at this time. I discussed the patient's condition with Dr. Pedraza this AM. If we are not able to maintain acceptable volume status in response to diuretics, hemodialysis would be indicated. CK slowly trending down. Horowitz intact. Urine is clearing. Creatinine stable at ~5.0 mg/dL. GILLIAN consistent with dehydration and hemodynamically mediated ATN. Anticipate a slow recovery. Empagliflozin, metformin, lisinopril, and diuretics have been appropriately held. Medications are currently appropriately dosed for kidney dysfunction. Vasopressors titrated to MAP ~65. Wean off isotonic fluids to decrease obligatory intake. Document strict I/O's. Monitor serial metabolic profile at least twice daily. (2) Emphysematous cystitis: Plan: Culture + pansensitive E coli. Urology consultation appreciated. Remains on cefepime. CT does not demonstrate any evidence of obstruction. (3) Rhabdomyolysis: Plan: CK trending down. Atorvastatin held. UOP thankfully improving. Admission and Anticipated Discharge Date Admission Date: February 11, 2025 Subjective No acute events overnight. Khadar is unable to provide history. Levophed gtt weaned off. No fevers. He remains on low dose propofol and ventilator support. Amiodarone gtt turned off. IVF infusing at 110 ml/hr. Small amount of melena passed overnight. Horowitz is draining pink tinged urine. Urine output has increased. I discussed the plan of care with Dr. Pedraza this AM. Review of Systems Review of Systems: Unobtainable due to cognitive status Physical Exam Constitutional: + altered mental status and + mechanical ly ventilated Eyes: + anicteric sclerae ENMT: ETT Neck: normal visual inspection and trachea midline Respiratory: symmetric chest movement Auscultation: + rales Cardiovascular: Rate/Rhythm: + irregularly irregular Heart Sounds: normal S1 and normal S2 Extremities: no edema Gastrointestinal (Abdomen): Inspection/Auscultation: + scaphoid; abdomen not distended Percussion/Palpation: + abdomen tender and abdomen soft Musculoskeletal: Extremities: no cyanosis and no clubbing Skin: + turgor decreased; no jaundice Results & Data Vital Signs (Past 12 Hours) Vital Signs Temp Pulse Resp BP Pulse Ox O2 Del Method FiO2 02/14/25 08:23 20 40 02/14/25 07:20 94 H 24 87 L 40 02/14/25 04:00 40 02/14/25 04:00 36.5 C 92 H 24 82/65 L 96 Mechanical Vent 40 02/14/25 03:34 96 H 24 96 40 02/14/25 03:00 36.5 C 99 H 24 89/67 L 96 Mechanical Vent 40 02/14/25 02:21 36.5 C 98 H 28 H 96 02/14/25 02:06 36.5 C 112 H 30 H 95 02/14/25 01:48 36.5 C 100 H 27 H 95 02/14/25 01:30 36.5 C 106 H 27 H 96 02/14/25 01:00 96/77 L 02/14/25 01:00 36.5 C 96 H 27 H 95 02/14/25 00:31 105 H 24 96 40 02/14/25 00:30 36.6 C 100 H 27 H 97 02/14/25 00:18 36.6 C 107 H 27 H 98 02/14/25 00:00 36.6 C 103 H 26 H 97 02/14/25 00:00 104/74 02/14/25 00:00 50 02/13/25 23:45 36.7 C 101 H 25 H 98 02/13/25 23:30 36.7 C 95 H 24 98 02/13/25 23:15 36.7 C 106 H 24 98 02/13/25 23:00 36.8 C 85 24 98 02/13/25 22:51 36.8 C 92 H 24 98 02/13/25 22:48 95 H 02/13/25 22:36 36.8 C 97 H 24 97 02/13/25 22:21 36.9 C 94 H 24 96 02/13/25 22:00 94/74 L 02/13/25 22:00 36.9 C 98 H 24 96 02/13/25 21:45 36.9 C 98 H 25 H 96 02/13/25 21:30 37.0 C 95 H 28 H 97 02/13/25 21:15 37.0 C 101 H 27 H 97 Laboratory Results Laboratory Results - last 24 hr 02/13/25 02/13/25 02/13/25 06:53 11:42 13:11 WBC RBC Hgb POC Hgb Hct POC Hct MCV MCH MCHC RDW Std Deviation RDW Coeff of Kayy Plt Count MPV Immature Gran % (Auto) Neut % (Auto) Lymph % (Auto) [place] % (Auto) Eos % (Auto) Baso % (Auto) Neut # (Auto) Lymph # (Auto) [place] # (Auto) Eos # (Auto) Baso # (Auto) Immature Gran # (Auto) Toxic Granulation Dohle Bodies Polychromasia Echinocytes PT INR Specimen Type Sample Site POC pH POC pCO2 POC pO2 POC HCO3 POC Total CO2 POC Base Excess O2 Sat Pulse Oximetry ABG pH (Temp Correct) ABG pCO2 (Temp Corrct POC ABG pO2 at Pt Temp POC ABG O2 Sat [place] Test O2 Delivery Device Vent Mode POC FiO2 End Tidal CO2 POC Sodium Sodium 134 L POC Potassium Potassium 6.1 H* Chloride 96 L Carbon Dioxide 24 Anion Gap 14 H BUN 72 H Creatinine 4.91 H* Est Cr Clr Drug Dosing 13.0 eGFR 11.63 BUN/Creatinine Ratio 14.7 Glucose 132 H POC Glucose (other) 125 H Lactate Calcium 7.0 L Phosphorus Magnesium Total Bilirubin AST ALT Alkaline Phosphatase Total Creatine Kinase Total Protein Albumin Globulin Albumin/Globulin Ratio Procalcitonin Stool Occult Bld Scrn Hep Bs Antigen Negative Hep Bs Antibody Immune Hep Bs Antibody, Quant 18.20 02/13/25 02/13/25 02/13/25 17:58 20:15 23:45 WBC RBC Hgb POC Hgb Hct POC Hct MCV MCH MCHC RDW Std Deviation RDW Coeff of Kayy Plt Count MPV Immature Gran % (Auto) Neut % (Auto) Lymph % (Auto) [place] % (Auto) Eos % (Auto) Baso % (Auto) Neut # (Auto) Lymph # (Auto) [place] # (Auto) Eos # (Auto) Baso # (Auto) Immature Gran # (Auto) Toxic Granulation Dohle Bodies Polychromasia Echinocytes PT INR Specimen Type Sample Site POC pH POC pCO2 POC pO2 POC HCO3 POC Total CO2 POC Base Excess O2 Sat Pulse Oximetry ABG pH (Temp Correct) ABG pCO2 (Temp Corrct POC ABG pO2 at Pt Temp POC ABG O2 Sat [place] Test O2 Delivery Device Vent Mode POC FiO2 End Tidal CO2 POC Sodium Sodium 133 L POC Potassium Potassium 5.6 H Chloride 95 L Carbon Dioxide 22 Anion Gap 16 H BUN 77 H Creatinine 4.94 H* Est Cr Clr Drug Dosing 12.9 eGFR 11.54 BUN/Creatinine Ratio 15.6 Glucose 129 H POC Glucose (other) 123 H 132 H Lactate Calcium 6.9 L Phosphorus Magnesium Total Bilirubin AST ALT Alkaline Phosphatase Total Creatine Kinase Total Protein Albumin Globulin Albumin/Globulin Ratio Procalcitonin Stool Occult Bld Scrn Hep Bs Antigen Hep Bs Antibody Hep Bs Antibody, Quant 02/14/25 02/14/25 02/14/25 04:24 07:56 08:00 WBC 10.33 RBC 3.49 L Hgb 10.7 L POC Hgb 10.9 L Hct 32.3 L POC Hct 32 L MCV 92.6 MCH 30.7 MCHC 33.1 RDW Std Deviation 53.4 H RDW Coeff of Kayy 15.8 H Plt Count 103 L MPV 11.4 Immature Gran % (Auto) 0.8 Neut % (Auto) 93.6 Lymph % (Auto) 2.7 [place] % (Auto) 2.8 Eos % (Auto) 0.0 Baso % (Auto) 0.1 Neut # (Auto) 9.67 H Lymph # (Auto) 0.28 L [place] # (Auto) 0.29 Eos # (Auto) 0.00 Baso # (Auto) 0.01 Immature Gran # (Auto) 0.08 Toxic Granulation 1+ Dohle Bodies 1+ Polychromasia 1+ Echinocytes 2+ PT 12.4 H INR 1.2 H Specimen Type Arterial Sample Site Art Line POC pH 7.35 POC pCO2 39 POC pO2 75 L POC HCO3 22 POC Total CO2 23 L POC Base Excess -4.0 O2 Sat Pulse Oximetry 95 ABG pH (Temp Correct) 7.362 ABG pCO2 (Temp Corrct 38 POC ABG pO2 at Pt Temp 72 POC ABG O2 Sat 94.0 [place] Test NA O2 Delivery Device Ventilator Vent Mode AC POC FiO2 40 End Tidal CO2 24 POC Sodium 129 L Sodium 134 L POC Potassium 4.9 Potassium 5.2 H Chloride 94 L Carbon Dioxide 21 Anion Gap 19 H BUN 76 H Creatinine 5.10 H* Est Cr Clr Drug Dosing 12.5 eGFR 11.11 BUN/Creatinine Ratio 14.9 Glucose 146 H POC Glucose (other) Lactate 1.3 Calcium 6.6 L Phosphorus 4.7 Magnesium 2.4 Total Bilirubin 0.7 AST 105 H ALT 40 Alkaline Phosphatase 91 Total Creatine Kinase 3352 H Total Protein 4.9 L Albumin 1.9 L Globulin 3.0 Albumin/Globulin Ratio 0.6 L Procalcitonin > 100.00 H Stool Occult Bld Scrn Hep Bs Antigen Hep Bs Antibody Hep Bs Antibody, Quant 02/14/25 08:25 WBC RBC Hgb POC Hgb Hct POC Hct MCV MCH MCHC RDW Std Deviation RDW Coeff of Kayy Plt Count MPV Immature Gran % (Auto) Neut % (Auto) Lymph % (Auto) [place] % (Auto) Eos % (Auto) Baso % (Auto) Neut # (Auto) Lymph # (Auto) [place] # (Auto) Eos # (Auto) Baso # (Auto) Immature Gran # (Auto) Toxic Granulation Dohle Bodies Polychromasia Echinocytes PT INR Specimen Type Sample Site POC pH POC pCO2 POC pO2 POC HCO3 POC Total CO2 POC Base Excess O2 Sat Pulse Oximetry ABG pH (Temp Correct) ABG pCO2 (Temp Corrct POC ABG pO2 at Pt Temp POC ABG O2 Sat [place] Test O2 Delivery Device Vent Mode POC FiO2 End Tidal CO2 POC Sodium Sodium POC Potassium Potassium Chloride Carbon Dioxide Anion Gap BUN Creatinine Est Cr Clr Drug Dosing eGFR BUN/Creatinine Ratio Glucose POC Glucose (other) Lactate Calcium Phosphorus Magnesium Total Bilirubin AST ALT Alkaline Phosphatase Total Creatine Kinase Total Protein Albumin Globulin Albumin/Globulin Ratio Procalcitonin Stool Occult Bld Scrn Positive A Hep Bs Antigen Hep Bs Antibody Hep Bs Antibody, Quant Diagnostic Findings XR chest 1V portable COMPARISON: 06:02:39 CRUDE TESTER FINDINGS: An endotracheal tube is in situ, 0.8 cm above the janie; needs to be pulled back. A nasogastric tube traverses the left side of the diaphragm and is in situ. Pulmonary Parenchyma: Bilateral pulmonary opacities are noted, which are more conspicuous and marked in the right lung, with a few ill-defined opacities in the left mid and lower zones. Obscured left pleural recess-stable. Obscured right pleural recess-new finding. Cardiomegaly is stable. Bony Thorax: Old, healed fractures are seen in the left 5th, 6th, and 7th posterior ribs. No acute fracture or deformity is seen. Soft Tissues: The soft tissues overlying the chest wall are unremarkable. IMPRESSION: An endotracheal tube is in situ, 0.8 cm above the janie; needs repositioning. The nasogastric tube traverses to the left side of the hemidiaphragm. Bilateral pulmonary opacities, which are more conspicuous and marked in the right lung, with a few ill-defined opacities in the left mid and lower zones, are stable. Cardiomegaly is stable. Obscured left pleural recess-stable. Obscured right pleural recess-new finding. PG Care Time/CCT Total # of Minutes Spent Total Time Spent with Patient: Total time spent is greater than 50% in coordination of care (as documented) at patient's floor/unit and/or counseling patient: Coding Level of Care Code 88489 SUB INP/OBS CARE 3/50MIN Diagnoses GILLIAN (acute kidney injury) N17.9 Emphysematous cystitis N30.80 Non-traumatic rhabdomyolysis M62.82 Rhabdomyolysis type: non-traumatic (3) Rhabdomyolysis Rhabdomyolysis type: non-traumatic Qualified Code(s): M62.82 - Rhabdomyolysis
--- NOTE | 2025-02-14 10:49 | Gastrointestinal Consultation ---
Date of Consultation February 14, 2025 Assessment & Plan (1) Melena: 74 year old male with history of ulcerative proctitis, COPD, atrial fibrillation, hyperlipidemia, T2DM, with peripheral angiopathy, vascular insufficiency, benign prostatic hyperplasia with LUTS, chronic obstructive pulmonary disease, atrial fibrillation among and others below who was found unresponsive on 02/11 w/ a large amount of BRBPR. He was given 2 units RBCs en route to the hospital and while in the emergency department he had a cardiac arrest and ACLS, ROSC was achieved and he was admitted to the ICU where he remains intubated. GI was asked to evaluate on 02/14/25 and he had a BM which appeared melanotic. No family at bedside. Unable to assess history. - NPO for tentative EGD at ICU bedside pending discussion w/ attending - Will need to contact family to discuss - Trend H&H - Monitor and document GI output - Transfuse PRN per primary service - Hold anticoagulation - Continue IV PPI twice daily We appreciate assistance in the management of any serological abnormality and corrections to include: hemoglobin >7, INR <2, platelets >50,000, potassium levels >3.5 but <5.3, and sodium levels within 5 points of the reference range prior to endoscopic evaluation. Thank you for allowing us to participate in the care of this patient. Please call with any acute changes, questions or concerns. Please see addendum below with additional recommendation from my supervising physician. I spent a total of 60 minutes on the date of service in review of patient's record, and previously obtained information in person and appropriate medical visit, discussion and education of plan, with patient and/or caregiver, placing orders for tests/referral/procedures as medically necessary and documentation of pertinent clinical information in patient's medical records for their visit today. GI re-evaluate as family was now at bedside. They endorses understanding how critically ill Khadar is and would like to think further about pursing EGD. I advised them to contact us with their decision as we will need their consent to move forward. Per nursing, no bloody output form OG tube. GI was updated by nursing staff, Wilma Jay via [employer] at 12:22, that Khadar's POAVane is declining EGD intervention. Will cancel EGD. Can continue w/ supportive measures unless family/patient wishes change. Supervising Physician Co-Signing Physician Notes Above reviewed. Came to the ICU to see the patient. Nursing note that patient has been made comfort measures and family wish no further GI evaluation. Will sign off reconsult as needed History of Present Illness Reason for Consultation: GI bleeding Requesting Physician: Moshe Felipe MD, PhD Attending Physician: Moshe Felipe MD, PhD History of Present Illness 74 year old male with history of ulcerative proctitis, COPD, atrial fibrillation, hyperlipidemia, T2DM, with peripheral angiopathy, vascular insufficiency, benign prostatic hyperplasia with LUTS, chronic obstructive pulmonary disease, atrial fibrillation among and others below who was found unresponsive on 02/11 w/ a large amount of rectal bleeding. He was given 2 units RBCs en route to the hospital and while in the emergency department he had a cardiac arrest and ACLS, ROSC was achieved and he was admitted to the ICU where he remains intubated. GI was asked to evaluate on 02/14/25 and he had a BM which appeared melanotic. No family at bedside. Unable to assess history. 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 - Diverticulosis in the sigmoid colon. - Proctitis ulcerative colitis. Inflammation was found from the anus to the rectum. This was severe. Biopsied. - Non-bleeding internal hemorrhoids. Allergies Allergy/AdvReac Type Severity Reaction Status Date / Time ciprofloxacin [Cipro] Allergy Severe hives, Verified 02/11/25 15:08 dizzy, vomitting azithromycin AdvReac Intermediate dizzy, Verified 02/11/25 15:08 vomitting Home Medications Medication Instructions Recorded Confirmed Type blood-glucose meter #1 ea 12/06/18 02/12/25 Rx nebulizer and compressor #1 ea 05/10/23 02/12/25 Rx Oxygen Home #1 ea 05/04/24 02/12/25 Rx fluticasone 250 mcg-salmeterol 50 1 inh inhalation BID 05/04/24 02/12/25 History mcg/dose blistr powdr for inhalation apixaban 5 mg tablet (Eliquis) 5 mg PO Q12H #180 tabs 05/25/24 02/12/25 Rx atorvastatin 20 mg tablet 20 mg PO QAM #90 tabs 05/25/24 02/12/25 Rx empagliflozin 10 mg tablet 10 mg PO DAILY #90 tabs 05/25/24 02/12/25 Rx (Jardiance) ferrous sulfate 325 mg (65 mg 325 mg PO BIDM #180 tabs 05/25/24 02/12/25 Rx iron) tablet,delayed release gabapentin 600 mg tablet 600 mg PO TID #270 tabs 05/25/24 02/12/25 Rx (Neurontin) lisinopril 2.5 mg tablet 2.5 mg PO DAILY #90 tabs 05/25/24 02/12/25 Rx magnesium oxide 400 mg (241.3 mg 400 mg PO HS #90 tabs 05/25/24 02/12/25 Rx magnesium) tablet metoprolol succinate 50 mg 50 mg PO QAM #90 tabs 05/25/24 02/12/25 Rx tablet,extended release 24 hr potassium chloride 20 mEq 20 meq PO QAM #90 tabs 05/25/24 02/12/25 Rx tablet,extended release(part/cryst) metformin 500 mg tablet 500 mg PO BID #180 tabs 11/06/24 02/12/25 Rx balsalazide 750 mg capsule 2,250 mg (3 x 750 mg) PO TID #270 01/02/25 02/12/25 Rx caps furosemide 20 mg tablet 20 mg PO DAILY 02/11/25 02/12/25 History Patient History Medical History Cardiomyopathy Poor historian PT non compliant and unware of PMH/medications Prostate cancer CMV colitis Neuropathy GI bleed hx Kidney stones Ulcerative colitis Diabetes mellitus, type 2 niddm Hyperlipidemia Surgical History H/O excision of mass (06/15/22) Excision of Right Upper Extremity Skin Lesion(Right) - Yaya Tena DO History of colon resection due to cancer, approx 3 yrs ago per pt History of cataract surgery bilat History of prostate biopsy History of lithotripsy History of AAA (abdominal aortic aneurysm) repair History of tooth extraction all teeth removed History of colonoscopy Family History Brother Family history of diabetes mellitus FHx: prostate cancer Dementia Sister Family history of diabetes mellitus Breast cancer Family/Other Family history of diabetes mellitus nieces/nephews Father Lung cancer Sister Myocardial infarction, Onset Age: 66 NM happened week of 11/10/18 Other No family history of adverse response to anesthesia Denies family history of Ovarian cancer Prostate cancer Colorectal cancer Social History Smoking Status: Unknown if ever smoked Tobacco Type: Cigarettes Age Started Using Tobacco: 19; Age Quit Using Tobacco: 54; packs per day: 2; Second Hand Exposure: No; Do You Dip or Chew Tobacco: No; Hx Alcohol Use: No (unknown) Hx Substance Use: No (unknown) Preferred Language: Malay Communication Ability: Unable Communication Ability Comment: DEAF LEFT EAR/GTZ RIGHT EAR-DOESN'T USUALLY WEAR Visual Impairment: No Limitations Hearing Ability: Hard of Hearing Dowel Inspector Required: No Beliefs That Will Affect Care: None marital status: Current Living Situation: Alone Current Living Situation Comment: lives alone current occupational status: retired Feels Safe at Home: Yes Childhood Exposure to Second-Hand Smoke: Yes Diet: regular caffeine: Yes during the past year weight has: remained stable Dental Care, Regularly: No Physical Activity Frequency: Daily Seatbelt Use: always Sunscreen Use: No Assistive Devices: Oxygen - Continuous and Walker Review of Systems Review of Systems: Unobtainable due to endotracheal tube Physical Exam Constitutional: WD/WN, vitals as above Results & Data Vital Signs (Past 12 Hours) Vital Signs Temp Pulse Resp BP Pulse Ox O2 Del Method FiO2 02/14/25 09:30 Mechanical Vent 40 02/14/25 09:03 97.3 F L 90 20 94 02/14/25 09:00 104/74 02/14/25 08:51 97.3 F L 99 H 25 H 93 02/14/25 08:23 20 40 02/14/25 08:00 97.5 F L 91 H 24 95 02/14/25 08:00 40 02/14/25 07:20 94 H 24 87 L 40 02/14/25 07:00 97.7 F 95 H 24 96 10/16/25 07:00 109/61 02/14/25 04:00 40 02/14/25 04:00 97.7 F 92 H 24 82/65 L 96 Mechanical Vent 40 02/14/25 03:34 96 H 24 96 40 02/14/25 03:00 97.7 F 99 H 24 89/67 L 96 Mechanical Vent 40 02/14/25 02:21 97.7 F 98 H 28 H 96 02/14/25 02:06 97.7 F 112 H 30 H 95 02/14/25 01:48 97.7 F 100 H 27 H 95 02/14/25 01:30 97.7 F 106 H 27 H 96 02/14/25 01:00 96/77 L 02/14/25 01:00 97.7 F 96 H 27 H 95 02/14/25 00:31 105 H 24 96 40 02/14/25 00:30 97.9 F 100 H 27 H 97 02/14/25 00:18 97.9 F 107 H 27 H 98 02/14/25 00:00 97.9 F 103 H 26 H 97 02/14/25 00:00 104/74 02/14/25 00:00 50 02/13/25 23:45 98.1 F 101 H 25 H 98 02/13/25 23:30 98.1 F 95 H 24 98 02/13/25 23:15 98.1 F 106 H 24 98 02/13/25 23:00 98.2 F 85 24 98 02/13/25 22:51 98.2 F 92 H 24 98 02/13/25 22:48 95 H PG Care Time/CCT Total # of Minutes Spent Total Time Spent with Patient: Total time spent is greater than 50% in coordination of care (as documented) at patient's floor/unit and/or counseling patient: Coding Level of Care Code 21007 INT INP/OBS CARE 2/55MIN Diagnoses Melena K92.1
--- NOTE | 2025-02-14 11:46 | Pharmacy Report ---
Pharmacy Glycemic Short Note 2 - Date of Service February 14, 2025 - Glycemic Short BSG Results (Last 24 hours): 02/13/25 02/13/25 02/13/25 11:42 13:11 17:58 Glucose 132 H POC Glucose (other) 125 H 123 H 02/13/25 02/13/25 02/14/25 20:15 23:45 04:24 Glucose 129 H 146 H POC Glucose (other) 132 H 02/14/25 02/14/25 07:38 11:23 Glucose POC Glucose (other) 142 H 129 H OUTPATIENT ANTIDIABETIC REGIMEN: * Jardiance 10 mg daily * Metformin * 6.1% 01/04/25 ASSESSMENT: 02/14: * BSGs within goal the last 24h: [phone]/dL. Has not required any additional insulin since early 02/12 AM. * Remains intubated and continues with vasopressor support. NPO. SCr 5.1. * Continue Novolog (adjusted q6) moderate stress scale. 02/12: * Patient admitted with septic shock and GILLIAN, post Cardiac arrest. * BSGs have downtrended overnight after a one time dose of Lantus and NovoLog scale q4. * Given BSGs within range currently and patient's severity of illness requiring multiple pressors, will not redose with SC basal insulin at this time. Will plan to manage with q4 NovoLog and if BSGs trend up considerably again would consider an insulin infusion at that time. PLAN FOR INPATIENT GLYCEMIC CONTROL: * Hold outpatient oral diabetes medications * Basal insulin * Hold * Bolus insulin * NovoLog per scale ACHS or Q6hrs while NPO * Goal Range: Low 120 mg/dL - High 160 mg/dL * Correction Factor: 30 mg/dL/unit * Nutritional / Prandial insulin per carb ratio of 1 unit per 10 grams CHO consumed
[2025-02-14] MEDS ORDERED: NOVASOURCE RENAL 2.0 CAL 1000ML BAG OG SCH (14:15)
[2025-02-14 14:40] VITALS: BP 108/83; PULSE 90; RESP 24; TEMP 97.2; O2SAT 94
[2025-02-14] MEDS ORDERED: ONDANSETRON INJ 2 MG/ML 2 ML VIAL IV PRN (16:01)
[2025-02-14] MEDS ORDERED: GLYCOPYRROLATE 0.2 MG/ML VIAL IV PRN (16:01)
[2025-02-14] MEDS ORDERED: ATROPINE SULFATE 1% OP SOLN 5 ML BTL SL PRN (16:01)
[2025-02-14] MEDS ORDERED: LORazepam Inj 0.5 MG in SYRINGE 0.25 ML IV PRN (16:01)
[2025-02-14] MEDS ORDERED: PROCHLORPERAZINE 5 MG in SYRINGE 4 ML IV PRN (16:01)
--- NOTE | 2025-02-14 16:05 | Communication Note ---
Date of Service: February 14, 2025 Notified by nursing staff that patient's family had been discussing comfort care and wanted to talk with me. Multiple family members are at bedside including the MPOA (niece) the patient's brother is also present. The family states that they are all in agreement and they want to proceed with comfort care measures. They do not want him to continue to suffer and remain on life support. I explained the process of comfort care and they expressed an understanding. They want to go ahead and proceed with comfort care now. Orders have been placed. Coding Level of Care Code None
[2025-02-14] MEDS: TUBE FEEDING WATER FLUSH OG SCH (16:51)
[2025-02-14] MEDS: cefTRIAXone SODIUM 2,000 MG/50 ML BAG IV SCH (16:51)
--- NOTE | 2025-02-14 20:46 | Hospitalist Progress Note ---
Date of Service February 14, 2025 Assessment & Plan (1) DNR (do not resuscitate): Plan: Continue comfort measures only utilizing morphine 2mg IV q1 prn pain/respiratory distress, lorazepam 0.5mg IV q1 prn anxiety/agitation, atropine 1% solution, 4 gtt SL qh prn secretions/pulmonary congestion, glycopyrrolate 0.4mg IV q4 prn secretions/pulmonary congestion, zofran 4mg IV q4 prn nausea/vomiting, tylenol 1000mg IV q8 prn fever/headache on 02/14/2025, in this patient who is now DNR/DNI/comfort measures only after terminal extubation on 02/14/2025. Admission and Anticipated Discharge Date Admission Date: February 11, 2025 Subjective Unavailable as patient remains non-verbal, lethargic, and obtunded, after terminal extubation and conversion from DNR/DNI code status to DNR/DNI/comfort measures only on 02/14/2025, in this patient who sustained an in-hospital (e.g., [facility]) cardiac arrest on admission date 02/11/2025, on arrival to [facility] ER, culminating in immediate intubation and mechanical ventilation on admission date 02/11/2025 in [facility]. Review of Systems Constitutional: Unavailable as patient remains non-verbal, lethargic, and obtunded, after terminal extubation and conversion from DNR/DNI code status to DNR/DNI/comfort measures only on 02/14/2025, in this patient who sustained an in-hospital (e.g., [facility]) cardiac arrest on admission date 02/11/2025, on arrival to [facility], culminating in immediate intubation and mechanical ventilation on admission date 02/11/2025 in [facility]. Physical Exam Constitutional: General: Comfortable. Non-verbal due to intubation and mechanical ventilation (e.g., A/C with TV430, RR 24, PEEP 8, FIO2 = 0.5 on 02/13/2025 since undergoing cardiac arrest in [facility] ER on admission date 02/11/2025, followed by terminal extubation on 02/14/2025, after [facility] ICU Dr. Jil Pedraza spoke with patient's family members and patient's family members requested withdrawal of all medical care/intervention, and in its place, requested that patient be made comfortable with code status revised from DNR/DNI @ home to DNR/DNI/comfort measures only on 02/14/2025. HEENT: NC/AT, PERRL. No nystagmus, gaze paresis, anisocoria, miosis, mydriasis, chemosis, hyphema, scleral injection, conjunctivitis, or pterygium. No otorrhea. No rhinorrhea. Neck: Supple, no stridor, bruit, or goiter. Jugular venous pressure 5cm above the sternal angle of Michael, which is typically 5 cm above the right atrium. Lymph: No anterior/posterior cervical lymphadenopathy, supraclavicular/infraclavicular lymphadenopathy, axilla/epitrochlear/inguinal lymphadenopathy. Chest: Symmetric rise and fall with respirations. Non-tender to palpation. Heart: RRR, S1 and S2. No S3 or S4 summation gallop. No tripartite friction rub. Grade II/ early systolic murmur @ LLSB without radiation to the carotids, axilla, or back, and which remains invariant in regards to the respiratory cycle. Lungs: Clear to auscultation. No audible expiratory wheeze, egophony, pectoriloquy, increase in tactile fremitus, or flatness/dullness to percussion at the bases. Abd: Soft, non-tender, non-distended. Bowel sounds auscultated in all 4 quadrants. No rebound, guarding, Deras's sign, or organomegaly. Ext: No clubbing, cyanosis, or edema. 2+ pedal pulses bilaterally. Skin: No decubitus ulcer, exanthem, or enanthem. Neuro: No tremors, tics, or myoclonus Urology: Horowitz catheter with urine output 0.30 mL/kg/hr (02/13/2025, 8:40pm to 02/14/2025, 8:40pm). Results & Data Results & Data Vital Signs (Past 12 Hours) Vital Signs Temp Pulse Resp BP Pulse Ox O2 Del Method FiO2 02/14/25 19:36 Room Air 02/14/25 14:15 36.2 C L 90 24 94 02/14/25 14:00 108/83 02/14/25 13:51 36.2 C L 87 23 94 02/14/25 13:03 36.1 C L 95 H 25 H 93 02/14/25 13:00 117/72 02/14/25 12:42 36.1 C L 95 H 21 93 02/14/25 12:06 36.1 C L 103 H 25 H 93 02/14/25 12:00 116/81 02/14/25 12:00 40 02/14/25 11:54 36.1 C L 92 H 23 93 02/14/25 11:00 36.2 C L 101 H 23 95 02/14/25 11:00 111/69 02/14/25 10:03 36.3 C L 90 23 95 02/14/25 10:00 95/66 L 02/14/25 10:00 82 21 94 40 02/14/25 09:48 36.3 C L 86 20 95 02/14/25 09:30 Mechanical Vent 40 02/14/25 09:03 36.3 C L 90 20 94 02/14/25 09:00 104/74 02/14/25 08:51 36.3 C L 99 H 25 H 93 Laboratory Results Abnormal lab results 02/11/25 02/13/25 02/13/25 Range/Units 15:27 20:15 23:45 RBC (4.70-6.10) M/uL Hgb (14.0-18.0) g/dl POC Hgb (14.0-18.0) g/dl Hct (42.0-52.0) % POC Hct (42-52) % RDW Std Deviation (36.4-46.3) fL RDW Coeff of Kayy (11.5-14.5) % Plt Count (130-400) K/uL Neut # (Auto) (1.40-6.50) K/uL Lymph # (Auto) (1.20-3.40) K/uL PT (9.0-12.0) Seconds INR (0.9-1.1) POC pO2 (80-95) mmHg POC Total CO2 (24-31) mmol/L POC Sodium (135-144) mmol/L Sodium 133 L (136-145) mmol/L Potassium 5.6 H (3.5-5.1) mmol/L Chloride 95 L (98-107) mmol/L Anion Gap 16 H (3-11) BUN 77 H (6-23) mg/dl Creatinine 4.94 H* (0.6-1.4) mg/dl Glucose 129 H (70-99(Fasting)) mg/dl POC Glucose (other) 132 H (70-99) mg/dl Calcium 6.9 L (8.6-10.3) mg/dl AST (13-39) U/L Total Creatine Kinase (30-223) U/L Total Protein (6.0-8.3) gm/dl Albumin (3.4-5.0) gm/dl Albumin/Globulin Ratio (0.9-2) Procalcitonin (0-0.5) ng/ml Stool Occult Bld Scrn (Negative) Crossmatch See Detail 02/14/25 02/14/25 02/14/25 Range/Units 04:24 07:38 08:00 RBC 3.49 L (4.70-6.10) M/uL Hgb 10.7 L (14.0-18.0) g/dl POC Hgb 10.9 L (14.0-18.0) g/dl Hct 32.3 L (42.0-52.0) % POC Hct 32 L (42-52) % RDW Std Deviation 53.4 H (36.4-46.3) fL RDW Coeff of Kayy 15.8 H (11.5-14.5) % Plt Count 103 L (130-400) K/uL Neut # (Auto) 9.67 H (1.40-6.50) K/uL Lymph # (Auto) 0.28 L (1.20-3.40) K/uL PT 12.4 H (9.0-12.0) Seconds INR 1.2 H (0.9-1.1) POC pO2 75 L (80-95) mmHg POC Total CO2 23 L (24-31) mmol/L POC Sodium 129 L (135-144) mmol/L Sodium 134 L (136-145) mmol/L Potassium 5.2 H (3.5-5.1) mmol/L Chloride 94 L (98-107) mmol/L Anion Gap 19 H (3-11) BUN 76 H (6-23) mg/dl Creatinine 5.10 H* (0.6-1.4) mg/dl Glucose 146 H (70-99(Fasting)) mg/dl POC Glucose (other) 142 H (70-99) mg/dl Calcium 6.6 L (8.6-10.3) mg/dl AST 105 H (13-39) U/L Total Creatine Kinase 3352 H (30-223) U/L Total Protein 4.9 L (6.0-8.3) gm/dl Albumin 1.9 L (3.4-5.0) gm/dl Albumin/Globulin Ratio 0.6 L (0.9-2) Procalcitonin > 100.00 H (0-0.5) ng/ml Stool Occult Bld Scrn (Negative) Crossmatch 02/14/25 02/14/25 Range/Units 08:25 11:23 RBC (4.70-6.10) M/uL Hgb (14.0-18.0) g/dl POC Hgb (14.0-18.0) g/dl Hct (42.0-52.0) % POC Hct (42-52) % RDW Std Deviation (36.4-46.3) fL RDW Coeff of Kayy (11.5-14.5) % Plt Count (130-400) K/uL Neut # (Auto) (1.40-6.50) K/uL Lymph # (Auto) (1.20-3.40) K/uL PT (9.0-12.0) Seconds INR (0.9-1.1) POC pO2 (80-95) mmHg POC Total CO2 (24-31) mmol/L POC Sodium (135-144) mmol/L Sodium (136-145) mmol/L Potassium (3.5-5.1) mmol/L Chloride (98-107) mmol/L Anion Gap (3-11) BUN (6-23) mg/dl Creatinine (0.6-1.4) mg/dl Glucose (70-99(Fasting)) mg/dl POC Glucose (other) 129 H (70-99) mg/dl Calcium (8.6-10.3) mg/dl AST (13-39) U/L Total Creatine Kinase (30-223) U/L Total Protein (6.0-8.3) gm/dl Albumin (3.4-5.0) gm/dl Albumin/Globulin Ratio (0.9-2) Procalcitonin (0-0.5) ng/ml Stool Occult Bld Scrn Positive A (Negative) Crossmatch PG Care Time/CCT Total # of Minutes Spent Total Time Spent with Patient: Total time spent is greater than 50% in coordination of care (as documented) at patient's floor/unit and/or counseling patient: Coding Level of Care Code 83947 SUB INP/OBS CARE 2/35MIN Diagnoses DNR (do not resuscitate) Z66
[2025-02-15] MEDS: MoRPHine SULFATE 4 MG/ML 1 ML CARP\\VIAL IV PRN (03:10)
--- NOTE | 2025-02-15 06:02 | Death Pronouncement Note ---
Date of Service February 15, 2025 Pronouncement Note Admission Date Admission Date: February 11, 2025 Contributing Factors (1) DNR (do not resuscitate): Hospital Course Hospital Course: I was called to pronounce the of Khadar Bailey : 1950 by nursing on 02/15/2025 Upon entering the room, the patient was found to be in a terminal state. Patient was unresponsive to verbal and tactile stimuli. Patient unresponsive to corneal and pupillary reflexes. On cardiopulmonary exam, no carotid or radial pulses found and pt without spontaneous heart tones or respirations. Time of was pronounced by me on 02/15/2025 at 0557 Attending physician was notified. Next of kin was notified by nursing Additional Data Attending physician: Moshe Felipe MD, PhD
[2025-02-15] MEDS ORDERED: ATROPINE SULFATE 0.1 MG/ML 10ML SYR IV ONE (06:18)
[2025-02-15] MEDS ORDERED: CALCIUM CHLORIDE 10% 10 ML SYR IV ONE (06:18)
[2025-02-15] MEDS ORDERED: AMIODARONE HCL INJ 50 MG/ML 3 ML VIAL IV ONE (06:18)
[2025-02-15] MEDS ORDERED: SODIUM CHLORIDE 0.9% 10ML FLUSH IV ONE (06:18)
[2025-02-15] MEDS ORDERED: SODIUM BICARB 8.4% INJ 50 MEQ/50 ML SYR IV ONE (06:18)
--- NOTE | 2025-02-15 12:05 | Discharge Summary ---
Discharge Summary Date of Service February 15, 2025 Principal Dx & Hospital Course #1 = Principal Diagnosis (1) DNR (do not resuscitate): Patient received comfort measures only utilizing morphine 2mg IV q1 prn pain/respiratory distress, lorazepam 0.5mg IV q1 prn anxiety/agitation, atropine 1% solution, 4 gtt SL qh prn secretions/pulmonary congestion, glycopyrrolate 0.4mg IV q4 prn secretions/pulmonary congestion, zofran 4mg IV q4 prn nausea/vomiting, tylenol 1000mg IV q8 prn fever/headache on 02/14/2025, in this patient who is now DNR/DNI/comfort measures only after terminal extubation on 02/14/2025, followed by expiration on 02/15/2025, 5:50am. Admission HPI Per Admitting Provider Mr. Bailey is a 74-year-old male whose active medical conditions include type 2 diabetes mellitus with peripheral angiopathy, vascular insufficiency, benign prostatic hyperplasia with LUTS, chronic obstructive pulmonary disease, atrial fibrillation among other chronic medical conditions who was brought to the [facility] by EMS after being found unresponsive on the morning of 02/11. At the time my evaluation the patient has been intubated, not currently on any sedation and is unable to participate in any form of history/review of systems. The patient's family is available at bedside for a limited history; they describe that they last heard from the patient via telephone on 02/08, he seemed to be in his usual state of health. They had not heard from the patient over the weekend, which was not initially concerning however again did not hear from him nor was he responding to telephone calls in the morning of 02/11 which led to a wellness check to be called at which time he was found unresponsive. When he was found, he was noted to have a large amount of rectal bleeding, obtunded, unresponsive. En route to the hospital he was provided 2 units of PRBC via IO in the left tibia. At that time he was responsive to painful stimuli. There is no noted physical trauma on his initial evaluation. While the patient was in the emergency department, he had a cardiac arrest and ACLS was initiated as the patient's CODE STATUS was otherwise unknown. The pat ient was subsequently intubated as well, without complication. He did require 2 shocks and multiple rounds of epinephrine during his resuscitation. ROSC was achieved. Discharge Exam Constitutional Patient is unresponsive to verbal and noxious stimuli. Patient has no cough or gag reflexes. Patient has no spontaneous chest wall rise or fall. Patient has no central or peripheral pulses. Patient's pupils are fixed in the midline with a pupillary diameter of 2mm bilaterally. Patient was declared on 02/15/2025, 5:50am from: 1. Acute cardiopulmonary arrest, due to acute hypoxic respiratory failure, due to COPD, due to tobacco abuse. Patient's family members were present at the bedside at the time of patient's expiration. Discharge Plan Discharge Items Patient Disposition: Discharge Diagnosis: 1. Acute cardiopulmonary arrest, due to acute hypoxic respiratory failure, due to COPD, due to tobacco abuse. Other Date/Time: 02/15/25 05:50 Hospital Stay Data Procedures Performed Operation Date: 02/14/25 17:25 <No data on this case meets the specified criteria> Diagnostic Imagining Performed 02/11/25 15:29 CT abd pelvis wo con Stat CT cervical spine wo con Stat CT chest diagnostic wo con Stat CT head/brain wo con Stat Total Time Total Time Spent Total Time Spent (In Minutes): 35 minutes. Of this time period, 19 minutes were spent in coordinating patient's discharge to [facility]. Coding Level of Care Code 49911 INP/OBS DISCH >30 MIN Diagnoses DNR (do not resuscitate) Z66
--- NOTE | 2025-02-15 14:19 | Electrocardiogram Report ---
Test Reason : Blood Pressure : */* mmHG Vent. Rate : 116 BPM Atrial Rate : 116 BPM P-R Int : 184 ms QRS Dur : 106 ms QT Int : 330 ms P-R-T Axes : 96 61 185 degrees QTcB Int : 458 ms Sinus tachycardia Pulmonary disease pattern Abnormal ECG When compared with ECG of 14-Apr-2024 12:11, Sinus rhythm has replaced Atrial fibrillation QRS duration has increased T wave inversion now evident in Inferior leads Nonspecific T wave abnormality now evident in Lateral leads Confirmed by Eliazar Arroyo ([id number]) on 02/15/2025 2:19:19 PM Referred By: REFERRED SELF Confirmed By: Eliazar Arroyo
--- NOTE | 2025-02-18 06:06 | Electrocardiogram Report ---
Test Reason : Blood Pressure : */* mmHG Vent. Rate : 74 BPM Atrial Rate : 74 BPM P-R Int : 116 ms QRS Dur : 108 ms QT Int : 418 ms P-R-T Axes : * 118 49 degrees QTcB Int : 463 ms Poor data quality, interpretation may be adversely affected Normal sinus rhythm Right axis deviation Low voltage QRS Anterior infarct , age undetermined Abnormal ECG When compared with ECG of 11-Feb-2025 16:26, (unconfirmed) Anterior infarct is now Present Confirmed by Eliazar Arroyo ([id number]) on 02/18/2025 6:06:18 AM Referred By: REFERRED SELF Confirmed By: Eliazar Arroyo
== END 2025-02-15 09:16 | disposition expired | DRG 871 ==
LOC: ED 14:44 → 1E 17:49 → SUATTDRO 17:49 → 1E 18:24 → 3E 02-15 02:53